=== PATIENT | male | born 1950 | race Caucasian/White ===

== ENCOUNTER 2016-09-03 09:16 | Inpatient (IN) | payer OTHER, MEDICARE ==
[~2016-09-03] VITALS: Ht 182.9 cm; Wt 125.1 kg
[2016-09-03] VITALS (7 sets, daily range): BP systolic 107–152; BP diastolic 68–104; PULSE 80–135; RESP 15–30; TEMP 97.8–98.1; O2SAT 95–99
[~2016-09-03 09:16] MED LIST: ALBU2.5I INH; ASPI81TA82 PO; DICL1GEL TOP; FURO1TAB93 PO; HYDR10SO PO; METH500T3 PO; METO25 PO; NORV5TAB PO; ONDA4TAB7 PO; SENN8.6T15 PO; SPIR25TA PO; SYMB160A INH; TIMO
--- NOTE | 2016-09-03 11:02 | PD ---
HPI Chief Complaint: Flank/Kidney Pain Time Seen by Provider: 10:45 Travel History International Travel<30 days: No Contact w/Intl Traveler<30days: No Traveled to known affect area: No History of Present Illness HPI 66-year-old male who is hard of hearing presents with his friend for evaluation of left flank pain. His friend provided some of the information. Symptoms started 1.5 weeks ago. Pain is a sharp pain in his left flank that is constant but it is worse with movement. He denies any injuries. The pain does not radiate into his abdomen or his chest. He denies any chest pain, nausea or vomiting, fevers or chills, diarrhea or constipation. He has had some hematuria over the past 2 days as well. He says he is on a blood thinner but he does not remember the name. No history of kidney stones. No other complaints. PFSH Past Medical History Hx Anticoagulant Therapy: Yes (Coumadin) Arthritis: Yes Blood Disorders: Yes (Pt Commented he has thin blood ) Heart Rhythm Problems: Yes (Hx AFib RVR ) Cancer: No Cardiac Catheterization: Yes Cardiovascular Problems: Yes High Cholesterol: No Chemotherapy: No Chest Pain: Yes Congestive Heart Failure: Yes Cerebrovascular Accident: No Coronary Artery Disease: Yes Diabetes: Yes Diminished Hearing: Yes (LEGALLY DEAF) Endocrine: No Gastrointestinal Disorders: Yes (Chirrosis of the Liver) Glaucoma: Yes Genitourinary: No Hypertension: Yes Immune Disorder: No Implanted Vascular Access Dvce: Yes Musculoskeletal: Yes (Arthritis ) Neurologic: No Psychiatric: No Reproductive: No Respiratory: Yes Immunizations Current: Yes Myocardial Infarction: Yes Radiation Therapy: No Sickle Cell Disease: No Past Surgical History Abdominal Surgery: Yes (paracentesis) Appendectomy: Yes Cardiac Surgery: Yes (VALVE REPLACEMENT) Coronary Stent: Yes Ear Surgery: No Eye Surgery: No Genitourinary Surgery: No Gynecologic Surgery: No Neurologic Surgery: No Oral Surgery: No Thoracic Surgery: No Tonsillectomy: Yes Other Surgery: Yes (Paracentesis) Social History Alcohol Use: No Tobacco Use: No Substance Use: No (HX OF DRUG AND ALCOHOL ABUSE) Allergies-Medications (Allergen,Severity, Reaction): Coded Allergies: Lisinopril (Verified Allergy, Intermediate, 09/03/16) Reported Meds & Prescriptions Reported Meds & Active Scripts Active Reported [blood thinner] Unknown Dose PO DAILY Hydrocodone-Acetaminophen 5-325 mg Tab Unknown Dose PO Q6H PRN Norvasc (Amlodipine Besylate) 5 Mg Tab 5 Mg PO DAILY Metoprolol Tartrate 25 Mg Tab 25 Mg PO BID Lasix (Furosemide) 40 Mg Tab 40 Mg PO DAILY Aspirin 81 Mg Tabdr 81 Mg PO DAILY Review of Systems Except as stated in HPI: all other systems reviewed are Neg Physical Exam Narrative GENERAL: Well-developed well-nourished male in no acute distress SKIN: Warm and dry. There is some scattered ecchymosis on the anterior abdominal wall which his friend says is from his pet jumping on him. There is no diffuse flank or periumbilical ecchymosis HEAD: Atraumatic. Normocephalic. EYES: Pupils equal and round. No scleral icterus. No injection or drainage. ENT: No nasal bleeding or discharge. Mucous membranes pink and moist. NECK: Trachea midline. No JVD. CARDIOVASCULAR: Regular rate and rhythm. No murmur appreciated. RESPIRATORY: No accessory muscle use. Clear to auscultation. Breath sounds equal bilaterally. GASTROINTESTINAL: Abdomen soft, non-tender, nondistended. Hepatic and splenic margins not palpable. Left CVA tenderness is present. There is some reproducible pain when sitting up from a lying down position. MUSCULOSKELETAL: No obvious deformities. NEUROLOGICAL: Awake and alert. No obvious cranial nerve deficits. Motor grossly within normal limits. Normal speech. Data Data Last Documented VS Vital Signs Date Time Temp Pulse Resp B/P Pulse Ox O2 Delivery O2 Flow Rate FiO2 09/03/16 15:35 98.1 09/03/16 15:32 109 22 09/03/16 15:25 133/89 98 Room Air Orders Complete Blood Count With Diff (09/03/16 10:59) Comprehensive Metabolic Panel (09/03/16 10:59) Urinalysis - C+S If Indicated (09/03/16 10:59) Ct Abd/Pel W/O Iv Contrast (09/03/16 10:59) Act Partial Throm Time (Ptt) (09/03/16 10:59) Prothrombin Time / Inr (Pt) (09/03/16 10:59) Lipase (09/03/16 11:02) Electrocardiogram (09/03/16 12:51) Ckmb (Isoenzyme) Profile (09/03/16 15:35) Troponin I (09/03/16 15:35) Influenzae A/B Antigen (09/03/16 15:35) Blood Culture (09/03/16 15:35) Electrocardiogram (09/03/16 15:35) Ct Pulmonary Angiogram (09/03/16 15:35) Lactic Acid (09/03/16 15:35) Vancomycin Inj (Vancomycin Inj) (09/03/16 15:45) Piperacil-Tazo 3.375 Gm Premix (Zosyn 3. (09/03/16 15:45) Mri C Spine W&W/O Contrast (09/03/16 ) Mri L Spine W&W/O Contrast (09/03/16 ) Mri T Spine W & W/O Contrast (09/03/16 ) Labs Laboratory Tests Test 09/03/16 09/03/16 11:28 12:02 White Blood Count 17.2 TH/MM3 Red Blood Count 3.93 MIL/MM3 Hemoglobin 13.2 GM/DL Hematocrit 38.1 % Mean Corpuscular Volume 97.0 FL Mean Corpuscular Hemoglobin 33.6 PG Mean Corpuscular Hemoglobin 34.6 % Concent Red Cell Distribution Width 15.1 % Platelet Count 40 TH/MM3 Mean Platelet Volume 10.7 FL Neutrophils (%) (Auto) 92.2 % Lymphocytes (%) (Auto) 3.0 % Monocytes (%) (Auto) 4.2 % Eosinophils (%) (Auto) 0.2 % Basophils (%) (Auto) 0.4 % Neutrophils # (Auto) 15.9 TH/MM3 Lymphocytes # (Auto) 0.5 TH/MM3 Monocytes # (Auto) 0.7 TH/MM3 Eosinophils # (Auto) 0.0 TH/MM3 Basophils # (Auto) 0.1 TH/MM3 CBC Comment AUTO DIFF Differential Total Cells 100 Counted Neutrophils % (Manual) 80 % Band Neutrophils % 13 % Lymphocytes % 2 % Monocytes % 5 % Neutrophils # (Manual) 16.0 TH/MM3 Differential Comment FINAL DIFF MANUAL Platelet Estimate LOW Platelet Morphology Comment NORMAL Prothrombin Time 17.3 SEC Prothromb Time International 1.5 RATIO Ratio Activated Partial 34.5 SEC Thromboplast Time Sodium Level 129 MEQ/L Potassium Level 3.8 MEQ/L Chloride Level 98 MEQ/L Carbon Dioxide Level 22.9 MEQ/L Anion Gap 8 MEQ/L Blood Urea Nitrogen 19 MG/DL Creatinine 1.01 MG/DL Estimat Glomerular Filtration 74 ML/MIN Rate Random Glucose 177 MG/DL Calcium Level 8.0 MG/DL Total Bilirubin 5.2 MG/DL Aspartate Amino Transf 39 U/L (AST/SGOT) Alanine Aminotransferase 25 U/L (ALT/SGPT) Alkaline Phosphatase 107 U/L Total Protein 6.1 GM/DL Albumin 2.1 GM/DL Lipase 185 U/L Urine Color BROWN Urine Turbidity HAZY Urine pH 6.0 Urine Specific [place] 1.024 Urine Protein 100 mg/dL Urine Glucose (UA) NEG mg/dL Urine Ketones NEG mg/dL Urine Occult Blood MOD Urine Nitrite NEG Urine Bilirubin NEG Urine Urobilinogen GREATER THAN 12.0 MG/DL Urine Leukocyte Esterase NEG Urine RBC 15 /hpf Urine WBC 4 /hpf Urine Squamous Epithelial 1 /hpf Cells Urine Mucus FEW /lpf Microscopic Urinalysis Comment CULT NOT INDICATED MDM Medical Decision Making Medical Screen Exam Complete: Yes Emergency Medical Condition: Yes Medical Record Reviewed: Yes Differential Diagnosis Muscle spasm, muscle strain, renal stone, hydronephrosis, pyelonephritis, pancreatitis Narrative Course This patient was seen in triage and protocols were initiated. The patient will be moved to a medical bed when one becomes available for disposition. Chaz Norman Sep 03, 2016 11:02 Chaz Norman Sep 03, 2016 11:02
[2016-09-03] MEDS ORDERED: AMLO5 PO (11:13)
[2016-09-03] MEDS ORDERED: ASPI1TAB69 PO (11:13)
[2016-09-03] MEDS ORDERED: HYDR-3516 PO (11:13)
[2016-09-03] MEDS ORDERED: METO25TA3 PO (11:13)
[2016-09-03] MEDS ORDERED: FURO1TAB60 PO (11:13)
[2016-09-03 11:45] LABS: AUTOMATED NEUTROPHIL # 15.9 TH/MM3 (1.8-7.7); BASOPHIL # 0.1 TH/MM3 (0-0.2); BASOPHIL % 0.4 % (0.0-2.0); EOSINOPHIL % 0.2 % (0.0-4.0); HEMATOCRIT 38.1 % (39.0-51.0); LYMPHOCYTE # 0.5 TH/MM3 (1.0-4.8); MEAN CORPUSCULAR HEMOGLOBIN 33.6 PG (27.0-34.0); MEAN CORPUSCULAR HGB CONC 34.6 % (32.0-36.0); MONO % 4.2 % (0.0-8.0); NEUT % 92.2 % (16.0-70.0); PLATELET COUNT 40 TH/MM3 (150-450); RED BLOOD COUNT 3.93 MIL/MM3 (4.50-5.90); RED CELL DISTRIBUTION WIDTH 15.1 % (11.6-17.2); WHITE BLOOD COUNT 17.2 TH/MM3 (4.0-11.0)
[2016-09-03 11:50] LABS: APTT (PATIENT) 34.5 SEC (24.3-30.1); HEMO FLAGS AUTO DIFF; INTERNATIONAL NORMALIZED RATIO 1.5 RATIO; PROTHROMBIN TIME - PATIENT 17.3 SEC (9.8-11.6)
[2016-09-03 12:02] LABS: ANION GAP 8 MEQ/L (5-15); AST (GOT) 39 U/L (15-37); BICARBONATE 22.9 MEQ/L (21.0-32.0); BLOOD UREA NITROGEN 19 MG/DL (7-18); CHLORIDE 98 MEQ/L (98-107); GLOMERULAR FILTRATION RATE 74 ML/MIN (>89); POTASSIUM 3.8 MEQ/L (3.5-5.1); SODIUM (NA) 129 MEQ/L (136-145)
[2016-09-03 12:04] LABS: ALKALINE PHOSPHATASE 107 U/L (45-117); ALT (GPT) 25 U/L (12-78); TOTAL BILIRUBIN ADULT 5.2 MG/DL (0.2-1.0)
[2016-09-03 12:35] LABS: BLOOD, URINE MOD (NEG); COMMENT (UR) CULT NOT INDICATED; CULTURE IF INDICATED CULT NOT INDICATED; GLUCOSE,URINE NEG (NEG); KETONE, URINE NEG (NEG); MUCUS URINE FEW /lpf (OCC); NITRITE,URINE NEG (NEG); SQUAMOUS EPITHELIAL CELL URINE 1 /hpf (0-5)
[2016-09-03 12:41] LABS: BANDS 13 % (0-6); PLATELET ESTIMATE SMEAR LOW (NORMAL); PLATELET MORPHOLOGY NORMAL (NORMAL); POLYS (SEG NEUTROPHILS) 80 % (16-70); SCAN/DIFF FINAL DIFF MANUAL; WBC DIFF SAMPLE 100
--- NOTE | 2016-09-03 12:42 | RADRPT ---
EXAM DATE/TIME: 09/03/2016 11:40 [facility] COMPARISON: CT ABDOMEN & PELVIS W CONTRAST, March 05, 2016, 1:21. CT ABDOMEN & PELVIS W/O CONTRAST, February 18 16, 21:13. INDICATIONS: Left rib pain and hematuria. ORAL CONTRAST: No oral contrast ingested. RADIATION DOSE: 15.69 CTDIvol (mGy) MEDICAL HISTORY: Diabetes mellitus type 2. Hypertension. Cardiovascular disease SURGICAL HISTORY: CABG Appendectomy. ENCOUNTER: Initial ACUITY: 1 week PAIN SCALE: 8/10 LOCATION: Left upper quadrant TECHNIQUE: Volumetric scanning of the abdomen and pelvis was performed. Using automated exposure control and ad justment of the mA and/or kV according to patient size, radiation dose was kept as low as reasonably achievable to obtain optimal diagnostic quality images. FINDINGS: The spleen is markedly enlarged and measures 20.9 cm in greatest dimension. The liver is small and n odular in contour indicating cirrhosis. There are esophageal varices. There is also some ascites wi thin the abdomen. No acute obstructive uropathy is noted. There is a stable upper pole right renal cyst. The pancreas is unchanged. Evaluation of the solid organs is limited secondary to the lack of intravenous contrast. Degenerative changes, scoliosis and multiple chronic compression deformities are noted involving the lumbar spine. A retro aortic left renal vein is noted. The abdominal aorta is calcified but it is not aneurysmally dilated. The inferior vena cava is normal. The urinary blad corinne is unremarkable. The prostate gland is unremarkable. No pelvic lymphadenopathy is noted. CONCLUSION: 1. Cirrhosis of the liver, marked splenomegaly and esophageal varices. 2. Small amount of ascites within the abdomen. 3. Stable right upper pole renal cyst. 4. Degenerative changes, scoliosis and multiple compression deformities involving the lumbar spine. Alexandr Oakley MD on September 03, 2016 at 12:06 Board Certified Radiologist. This report was verified electronically.
[2016-09-03 12:44] LABS: URINE COLOR BROWN (YELLW/STRAW)
[2016-09-03] MEDS ORDERED: blood thinner PO (14:30)
[2016-09-03] MEDS ORDERED: VANCOMYCIN INJ 1,000 MG in SODIUM CHLOR 0.9% 250 ML INJ 250 ML IV ONE (15:45)
[2016-09-03] MEDS ORDERED: PIPERACIL-TAZO 3.375 GM PREMIX 50 ML IV ONE (15:45)
--- NOTE | 2016-09-03 16:54 | PD ---
Data Data Last Documented VS Vital Signs Date Time Temp Pulse Resp B/P Pulse Ox O2 Delivery O2 Flow Rate FiO2 09/03/16 17:40 99 16 117/71 99 Room Air 09/03/16 15:35 98.1 Orders Complete Blood Count With Diff (09/03/16 10:59) Comprehensive Metabolic Panel (09/03/16 10:59) Urinalysis - C+S If Indicated (09/03/16 10:59) Ct Abd/Pel W/O Iv Contrast (09/03/16 10:59) Act Partial Throm Time (Ptt) (09/03/16 10:59) Prothrombin Time / Inr (Pt) (09/03/16 10:59) Lipase (09/03/16 11:02) Electrocardiogram (09/03/16 12:51) Ckmb (Isoenzyme) Profile (09/03/16 15:35) Troponin I (09/03/16 15:35) Influenzae A/B Antigen (09/03/16 15:35) Blood Culture (09/03/16 15:35) Electrocardiogram (09/03/16 15:35) Ct Pulmonary Angiogram (09/03/16 15:35) Lactic Acid (09/03/16 15:35) Vancomycin Inj (Vancomycin Inj) (09/03/16 15:45) Piperacil-Tazo 3.375 Gm Premix (Zosyn 3. (09/03/16 15:45) Mri C Spine W&W/O Contrast (09/03/16 ) Mri L Spine W&W/O Contrast (09/03/16 ) Mri T Spine W & W/O Contrast (09/03/16 ) Consult Vascular Access Team (09/03/16 ) Consult Vascular Access Team (09/03/16 ) Vascular Poc Ultrasound (09/03/16 ) CKMB (09/03/16 16:13) CKMB% (09/03/16 16:13) Sodium Chlor 0.9% 1000 Ml Inj (Ns 1000 M (09/03/16 19:00) Labs Laboratory Tests Test 09/03/16 09/03/16 09/03/16 11:28 12:02 16:13 White Blood Count 17.2 TH/MM3 Red Blood Count 3.93 MIL/MM3 Hemoglobin 13.2 GM/DL Hematocrit 38.1 % Mean Corpuscular Volume 97.0 FL Mean Corpuscular Hemoglobin 33.6 PG Mean Corpuscular Hemoglobin 34.6 % Concent Red Cell Distribution Width 15.1 % Platelet Count 40 TH/MM3 Mean Platelet Volume 10.7 FL Neutrophils (%) (Auto) 92.2 % Lymphocytes (%) (Auto) 3.0 % Monocytes (%) (Auto) 4.2 % Eosinophils (%) (Auto) 0.2 % Basophils (%) (Auto) 0.4 % Neutrophils # (Auto) 15.9 TH/MM3 Lymphocytes # (Auto) 0.5 TH/MM3 Monocytes # (Auto) 0.7 TH/MM3 Eosinophils # (Auto) 0.0 TH/MM3 Basophils # (Auto) 0.1 TH/MM3 CBC Comment AUTO DIFF Differential Total Cells 100 Counted Neutrophils % (Manual) 80 % Band Neutrophils % 13 % Lymphocytes % 2 % Monocytes % 5 % Neutrophils # (Manual) 16.0 TH/MM3 Differential Comment FINAL DIFF MANUAL Platelet Estimate LOW Platelet Morphology Comment NORMAL Prothrombin Time 17.3 SEC Prothromb Time International 1.5 RATIO Ratio Activated Partial 34.5 SEC Thromboplast Time Sodium Level 129 MEQ/L Potassium Level 3.8 MEQ/L Chloride Level 98 MEQ/L Carbon Dioxide Level 22.9 MEQ/L Anion Gap 8 MEQ/L Blood Urea Nitrogen 19 MG/DL Creatinine 1.01 MG/DL Estimat Glomerular Filtration 74 ML/MIN Rate Random Glucose 177 MG/DL Calcium Level 8.0 MG/DL Total Bilirubin 5.2 MG/DL Aspartate Amino Transf 39 U/L (AST/SGOT) Alanine Aminotransferase 25 U/L (ALT/SGPT) Alkaline Phosphatase 107 U/L Total Protein 6.1 GM/DL Albumin 2.1 GM/DL Lipase 185 U/L Urine Color BROWN Urine Turbidity HAZY Urine pH 6.0 Urine Specific [place] 1.024 Urine Protein 100 mg/dL Urine Glucose (UA) NEG mg/dL Urine Ketones NEG mg/dL Urine Occult Blood MOD Urine Nitrite NEG Urine Bilirubin NEG Urine Urobilinogen GREATER THAN 12.0 MG/DL Urine Leukocyte Esterase NEG Urine RBC 15 /hpf Urine WBC 4 /hpf Urine Squamous Epithelial 1 /hpf Cells Urine Mucus FEW /lpf Microscopic Urinalysis Comment CULT NOT INDICATED Lactic Acid Level 2.1 mmol/L Total Creatine Kinase 133 U/L Creatine Kinase MB 0.8 NG/ML Troponin I 0.21 NG/ML MDM Supervised Visit with BERTA: Yes Narrative Course I, Dr. Dai, have reviewed the advance practice practitioner's documentation and am in agreement, met with the patient face to face, made the diagnosis, and the medical decision making was done by me. See his note for further details. The patient was initially evaluated and worked up in triage by my PA. Briefly this is a 66-year-old male with history of cirrhosis who presents for evaluation of worsening left upper back and lower back pain. He denies trauma. Pain is constant, severe, worse with movement and palpation. He has noted some dark urine. He denies fevers or chills. No IVDU. On physical exam the patient is in mild to moderate distress secondary to lower back pain/left flank pain which is significantly worse with movements. There are no focal neurologic deficits. There is significant tenderness over the left flank area and mild midline lower vertebral tenderness without obvious step -off. No focal neurologic deficits. No signs of cellulitis. Initial vital signs show heart rate 102, blood pressure 133/89, pulse ox 90% on room air, oral temp of 97.8F. CBC is remarkable for WBC 17.2 with 92% neutrophils and 13% band neutrophils. CMP is remarkable for sodium 129, T bili 5.2, otherwise essentially unremarkable. Cardiac enzymes UA shows brown urine with 100 protein, moderate blood, greater than 12 urobilinogen, 15 RBCs, not suggestive of UTI. CT abdomen pelvis: 1. Cirrhosis of the liver, marked splenomegaly and esophageal varices. 2. Small amount of ascites within the abdomen. 3. Stable right upper pole renal cyst. 4. Degenerative changes, scoliosis and multiple compression deformities involving the lumbar spine. I reviewed the CT, and there does not seem to be enough ascites to perform even a diagnostic paracentesis safely. Patient has no abdominal tenderness. He is mainly tender over his left flank area. By the time the patient was brought back to the room, the above labs and CT abdomen pelvis had been resulted. I added CT pulmonary angiogram to rule out PE as well as MRI of the entire spine to rule out discitis/epidural abscess. Given leukocytosis and bandemia without obvious source, broad-spectrum antibiotics were started which included vancomycin and Zosyn. Troponin is 0.21. Lactic acid is 2.1. EKG shows A. fib with a rate of 96, leftward axis, Q waves in septal leads, no acute ischemic normality. At approximately 7:00 PM at the end of my shift the patient was signed out to Dr. del castillo follow up with CT pulmonary angiogram, MRI spine, and will admit the patient. Diagnosis Primary Impression: Leukocytosis Qualified Code: D72.829 - Leukocytosis, unspecified type Additional Impression: Elevated troponin Darin Dai MD Sep 03, 2016 16:53
[2016-09-03 17:09] LABS: CREATINE KINASE 133 U/L (39-308)
[2016-09-03 17:22] LABS: CKMB 0.8 NG/ML (0.5-3.6)
[2016-09-03] MEDS ORDERED: SODIUM CHLOR 0.9% 1000 ML INJ 1,000 ML IV ONE (19:00)
[2016-09-03] MEDS ORDERED: IOHEXOL 350 MG/ML 10 ML VIAL (for RAD DIAG) IV ONE (19:54)
[2016-09-03] MEDS ORDERED: GADODIAMIDE PF 287 MG/ML 20 ML VIAL (for RAD MRI) IV ONE (19:58)
[2016-09-03] MEDS ORDERED: HYDROmorphone HCL PF 1 MG/ML VIAL IV PUSH ONE (20:15)
[2016-09-03] MEDS ORDERED: RESP: ALBUTEROL 2.5 MG/IPRATROPIUM 0.5 MG NEB (SCH) NEB ONE (20:15)
--- NOTE | 2016-09-03 20:40 | RADRPT ---
EXAM DATE/TIME: 09/03/2016 19:42 [facility] COMPARISON: No previous studies available for comparison. INDICATIONS : Left rib pain for 1 week; evaluate for pulmonary embolism. IV CONTRAST: 75 cc Omnipaque 350 (iohexol) IV RADIATION DOSE: 23.42 CTDIvol (mGy) MEDICAL HISTORY : Hypertension. Diabetes mellitus type 2. SURGICAL HISTORY : Appendectomy. CABGPacemaker. ENCOUNTER: Initial ACUITY: 1 week PAIN SCALE: 6/10 LOCATION: Left chest TECHNIQUE: Volumetric scanning of the chest was performed using a pulmonary embolism protocol MIP images were re constructed. Using automated exposure control and adjustment of the mA and/or kV according to patien t size, radiation dose was kept as low as reasonably achievable to obtain optimal diagnostic quality images. FINDINGS: No filling defects to suggest pulmonary embolism. Mild basilar atelectasis. No significant effusion. Proximal aortic stent. Liver cirrhosis. Splenomegaly. Bilateral gynecomastia. Moderate coronary calci fications. CONCLUSION: 1. Negative for pulmonary embolus. 2. Mild atelectasis in the lungs. Thom Kebede MD on September 03, 2016 at 20:37 Board Certified Radiologist. This report was verified electronically.
--- NOTE | 2016-09-03 21:02 | RADRPT ---
EXAM DATE/TIME: 09/03/2016 17:59 [facility] COMPARISON: No previous studies available for comparison. INDICATIONS : Osteomyelitis. CONTRAST: 20 cc Omniscan (gadodiamide) IV MEDICAL HISTORY : Hypertension. Myocardial infarction. Congestive heart failure. SURGICAL HISTORY : Appendectomy. CABG Fusion, lumbar. ENCOUNTER: Initial ACUITY: 3 day PAIN SCORE: 3/10 LOCATION: back TECHNIQUE: Multiplanar multisequence MRI of the thoracic spine was performed. FINDINGS: No acute fracture or spondylolisthesis. No evidence for osteomyelitis. No cord compression and no cor d signal abnormalities. Mild degenerative change at T1-T8. Mild left-sided osteophytic ridging at T8-9 and right-sided osteop hytic ridging at T9-10 with mild encroachment of the lateral recesses. Mild lateral recess encroachment at T10-11 from degenerative change. [id number] are unremarkable. CONCLUSION: 1. Mild degenerative disc disease. No significant canal stenosis. Specifically no evidence for osteom yelitis. No cord impingement or cord edema. No abnormal enhancing lesions in the thoracic spine. Thom Kebede MD on September 03, 2016 at 20:57 Board Certified Radiologist. This report was verified electronically.
--- NOTE | 2016-09-03 21:05 | RADRPT ---
EXAM DATE/TIME: 09/03/2016 17:59 [facility] COMPARISON: No previous studies available for comparison. INDICATIONS : Osteomyelitis. CONTRAST: ?20 cc Omniscan (gadodiamide) IV MEDICAL HISTORY : Hypertension. Myocardial infarction. Congestive heart failure. SURGICAL HISTORY : Appendectomy. CABG Fusion, lumbar. ENCOUNTER: Initial ACUITY: 2 day PAIN SCORE: 3/10 LOCATION: neck TECHNIQUE: Multiplanar, multisequence MRI examination of the cervical spine was performed. FINDINGS: No abnormal enhancing lesions in the cervical spine to suggest osteomyelitis. C2-3 is unremarkable. At C3-4 there is a broad-based disc protrusion with mild AP canal stenosis and mild cord flattening. Mild neural foraminal stenosis. C4-5: Broad-based disc protrusion with moderate AP canal stenosis and neural foraminal stenosis bilaterally . At C5-6, C6-7 and C7-T1 posterior disc osteophyte complexes efface the thecal sac around the cord wit hout significant cord compression. CONCLUSION: 1. No evidence for osteomyelitis. No fracture or spondylolisthesis. 2. Broad-based disc protrusions at C3-4-5 resulting in mild cord compression. 3. Degenerative change at C5-6-7-T1 effacing the thecal sac around the cord. Thom Kebede MD on September 03, 2016 at 21:00 Board Certified Radiologist. This report was verified electronically.
--- NOTE | 2016-09-03 21:08 | RADRPT ---
EXAM DATE/TIME: 09/03/2016 17:59 [facility] COMPARISON: No previous studies available for comparison. INDICATIONS : Osteomyelitis. CONTRAST: 20 cc Omniscan (gadodiamide) IV MEDICAL HISTORY : Hypertension. Myocardial infarction. Congestive heart failure. SURGICAL HISTORY : Appendectomy. CABG Fusion, lumbar. ENCOUNTER: Initial ACUITY: 3 day PAIN SCORE: 4/10 LOCATION: back TECHNIQUE: Multiplanar multisequence MRI of the lumbar spine was performed with and without contrast. FINDINGS: No evidence for osteomyelitis the lumbar spine. Mild compression deformities of L1 and L2 which appea r remote without significant edema. No significant stenosis at L1-2. Mild central canal stenosis at L2-3-4. No significant canal stenosis at L4-5-S1. CONCLUSION: 1. Negative for osteomyelitis. No abnormal enhancing lesion within the lumbar spine. 2. Remote mild compression deformities of L1 and L2. 3. Mild central canal stenosis at L2-3-4. Mild bilateral neural foraminal encroachment between L2 and L5 bilaterally. Thom Kebede MD on September 03, 2016 at 21:04 Board Certified Radiologist. This report was verified electronically.
--- NOTE | 2016-09-03 21:23 | PD ---
Data Data Last Documented VS Vital Signs Date Time Temp Pulse Resp B/P Pulse Ox O2 Delivery O2 Flow Rate FiO2 09/03/16 20:43 115 28 124/68 95 Room Air 09/03/16 15:35 98.1 Orders Complete Blood Count With Diff (09/03/16 10:59) Comprehensive Metabolic Panel (09/03/16 10:59) Urinalysis - C+S If Indicated (09/03/16 10:59) Ct Abd/Pel W/O Iv Contrast (09/03/16 10:59) Act Partial Throm Time (Ptt) (09/03/16 10:59) Prothrombin Time / Inr (Pt) (09/03/16 10:59) Lipase (09/03/16 11:02) Electrocardiogram (09/03/16 12:51) Ckmb (Isoenzyme) Profile (09/03/16 15:35) Troponin I (09/03/16 15:35) Influenzae A/B Antigen (09/03/16 15:35) Blood Culture (09/03/16 15:35) Electrocardiogram (09/03/16 15:35) Ct Pulmonary Angiogram (09/03/16 15:35) Lactic Acid (09/03/16 15:35) Vancomycin Inj (Vancomycin Inj) (09/03/16 15:45) Piperacil-Tazo 3.375 Gm Premix (Zosyn 3. (09/03/16 15:45) Mri C Spine W&W/O Contrast (09/03/16 ) Mri L Spine W&W/O Contrast (09/03/16 ) Mri T Spine W & W/O Contrast (09/03/16 ) Consult Vascular Access Team (09/03/16 ) Consult Vascular Access Team (09/03/16 ) Vascular Poc Ultrasound (09/03/16 ) CKMB (09/03/16 16:13) CKMB% (09/03/16 16:13) Sodium Chlor 0.9% 1000 Ml Inj (Ns 1000 M (09/03/16 19:00) Iohexol 350 Inj (Omnipaque 350 Inj) (09/03/16 19:54) Gadodiamide Pf Inj (Omniscan Pf Inj) (09/03/16 19:58) Hydromorphone Pf Inj (Dilaudid Pf Inj) (09/03/16 20:15) Albuterol-Ipratropium Neb (Duoneb Neb) (09/03/16 20:15) Admit Order (Ed Use Only) (09/03/16 ) Labs Laboratory Tests Test 09/03/16 09/03/16 09/03/16 11:28 12:02 16:13 White Blood Count 17.2 TH/MM3 Red Blood Count 3.93 MIL/MM3 Hemoglobin 13.2 GM/DL Hematocrit 38.1 % Mean Corpuscular Volume 97.0 FL Mean Corpuscular Hemoglobin 33.6 PG Mean Corpuscular Hemoglobin 34.6 % Concent Red Cell Distribution Width 15.1 % Platelet Count 40 TH/MM3 Mean Platelet Volume 10.7 FL Neutrophils (%) (Auto) 92.2 % Lymphocytes (%) (Auto) 3.0 % Monocytes (%) (Auto) 4.2 % Eosinophils (%) (Auto) 0.2 % Basophils (%) (Auto) 0.4 % Neutrophils # (Auto) 15.9 TH/MM3 Lymphocytes # (Auto) 0.5 TH/MM3 Monocytes # (Auto) 0.7 TH/MM3 Eosinophils # (Auto) 0.0 TH/MM3 Basophils # (Auto) 0.1 TH/MM3 CBC Comment AUTO DIFF Differential Total Cells 100 Counted Neutrophils % (Manual) 80 % Band Neutrophils % 13 % Lymphocytes % 2 % Monocytes % 5 % Neutrophils # (Manual) 16.0 TH/MM3 Differential Comment FINAL DIFF MANUAL Platelet Estimate LOW Platelet Morphology Comment NORMAL Prothrombin Time 17.3 SEC Prothromb Time International 1.5 RATIO Ratio Activated Partial 34.5 SEC Thromboplast Time Sodium Level 129 MEQ/L Potassium Level 3.8 MEQ/L Chloride Level 98 MEQ/L Carbon Dioxide Level 22.9 MEQ/L Anion Gap 8 MEQ/L Blood Urea Nitrogen 19 MG/DL Creatinine 1.01 MG/DL Estimat Glomerular Filtration 74 ML/MIN Rate Random Glucose 177 MG/DL Calcium Level 8.0 MG/DL Total Bilirubin 5.2 MG/DL Aspartate Amino Transf 39 U/L (AST/SGOT) Alanine Aminotransferase 25 U/L (ALT/SGPT) Alkaline Phosphatase 107 U/L Total Protein 6.1 GM/DL Albumin 2.1 GM/DL Lipase 185 U/L Urine Color BROWN Urine Turbidity HAZY Urine pH 6.0 Urine Specific [place] 1.024 Urine Protein 100 mg/dL Urine Glucose (UA) NEG mg/dL Urine Ketones NEG mg/dL Urine Occult Blood MOD Urine Nitrite NEG Urine Bilirubin NEG Urine Urobilinogen GREATER THAN 12.0 MG/DL Urine Leukocyte Esterase NEG Urine RBC 15 /hpf Urine WBC 4 /hpf Urine Squamous Epithelial 1 /hpf Cells Urine Mucus FEW /lpf Microscopic Urinalysis Comment CULT NOT INDICATED Lactic Acid Level 2.1 mmol/L Total Creatine Kinase 133 U/L Creatine Kinase MB 0.8 NG/ML Troponin I 0.21 NG/ML [facility] Supervised Visit with BERTA: No Narrative Course Assumed care patient Dr. Dai, 66 old man with a history of cirrhosis, worsening left flank pain without clear etiology. Symptoms ongoing for a week and a half. Studies show white blood cell count with bandemia, elevated lactate, and evidence of his chronic liver failure. Troponin is also little bit elevated. Extensive workup including CT pulmonary angiogram, CT of the abdomen and pelvis, an MRI of the lumbar spine failed identified etiology for the patient's pain, or an occult source of infection. EKG showed A. fib RVR without definite ischemic changes. On exam he is some tenderness but no rashes suggest shingles, no evidence of trauma, no other etiology for his pain. Medical history includes A. 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 Troponin is also elevated. We'll admit the patient to the hospital for further evaluation to rule out ACS, sepsis, further studies identified etiology of patient's discomfort. Diagnosis Primary Impression: Leukocytosis Qualified Code: D72.829 - Leukocytosis, unspecified type Additional Impression: Elevated troponin Butch Levin MD Sep 03, 2016 21:23
[2016-09-03] MEDS ORDERED: NALOXONE HCL 0.4 MG/ML AMP IV PRN (23:45)
[2016-09-03] MEDS ORDERED: SODIUM CHLORIDE 0.9% FLUSH 5 ML FLUSH FLUSH PRN (23:45)
[2016-09-04] VITALS (12 sets, daily range): BP systolic 94–114; BP diastolic 53–85; PULSE 83–111; RESP 16–22; TEMP 97.1–98.7; O2SAT 94–98
[2016-09-04] MEDS ORDERED: GLUCAGON 1 MG/ML VIAL OTHER PRN (00:15)
[2016-09-04] MEDS ORDERED: DEXTROSE 50% IN WATER 50 ML VIAL(D50) IV PUSH PRN (00:15)
--- NOTE | 2016-09-04 00:54 | HHI.HP ---
[facility] Tony Ravi M.D. Admission Diagnosis sepsis, flank pain, rule out LA Diagnoses: (1) Sepsis (2) Cirrhosis (3) Hyponatremia (4) Left flank pain (5) Cervical disc herniation Chief Complaint: Left flank pain Travel History International Travel<30 Days: No Contact w/Intl Traveler <30 Da: No Traveled to Known Affected Are: No History of Present Illness Mr. Stovall is a 66-year-old who is legally deaf in the past medical history of liver cirrhosis, coronary artery disease, myocardial infarction status post CABG 3 and cardiac stents, congestive heart failure, heart valve replacement, hypertension, atrial fibrillation with rapid ventricular response, diabetes mellitus, and history of alcohol and drug abuse who presented to the emergency room on 09/03/16 complaining of left flank pain for a duration of one and a half weeks. The patient is seen in the emergency room, he is complaining of severe pain left flank that was reduced from December 01 to a 4 with Dilaudid but is back to a 10 out of 10. He complains of urinary frequency and hematuria. There is a small amount of urine in the urinal at the bedside that is blood tinged. In general patient is very poor historian difficult to communicate due to being , however patient is able to read lips movement, He denies any accompanying abdominal pain nausea, vomiting, black or bloody stool, diarrhea, hematemesis, dizziness, blurred vision, or chest pain . Review of Systems Gastrointestinal: DENIES: Bloody stools Except as stated in HPI: all other systems reviewed are Neg Past Family Social History Past Medical History Liver cirrhosis, coronary artery disease, myocardial infarction status post CABG 3 and cardiac stents, congestive heart failure, heart valve replacement, hypertension, atrial fibrillation with rapid ventricular response, diabetes mellitus, and history of alcohol and drug abuse . Past Surgical History Coronary artery bypass graft 3 Cardiac stents Paracentesis . Reported Medications Reported Meds & Active Scripts Active Reported [blood thinner] Unknown Dose PO DAILY Hydrocodone-Acetaminophen 5-325 mg Tab Unknown Dose PO Q6H PRN Norvasc (Amlodipine Besylate) 5 Mg Tab 5 Mg PO DAILY Metoprolol Tartrate 25 Mg Tab 25 Mg PO BID Lasix (Furosemide) 40 Mg Tab 40 Mg PO DAILY Aspirin 81 Mg Tabdr 81 Mg PO DAILY Allergies: Coded Allergies: Lisinopril (Verified Allergy, Intermediate, 09/03/16) Active Ordered Medications Current Medications Vancomycin HCl 1000 mg/Sodium Chloride 250 ml @ 250 mls/hr ONCE ONCE IV Last administered on 09/03/16 17:37; Start 09/03/16 at 15:45; Stop 09/03/16 at 16:44 ; Status DC Piperacillin Sod/ Tazobactam Sod 50 ml @ 100 mls/hr ONCE ONCE IV Last administered on 09/03/16 16:19; Start 09/03/16 at 15:45; Stop 09/03/16 at 16:14 ; Status DC Sodium Chloride (NS 1000 ml Inj) 1,000 ml @ 999 mls/hr BOLUS ONCE IV Last administered on 09/03/16 19:39; Start 09/03/16 at 19:00; Stop 09/03/16 at 20:00 ; Status DC Iohexol (Omnipaque 350 Inj) 75 ml STK-MED ONCE IV Last administered on 19:54; Start 09/03/16 at 19:54; Stop 09/03/16 at 19:55; Status DC Gadodiamide (Omniscan Pf Inj) 20 ml STK-MED ONCE IV Last administered on 19:58; Start 09/03/16 at 19:58; Stop 09/03/16 at 19:59; Status DC Hydromorphone HCl (Dilaudid Pf Inj) 1 mg ONCE ONCE IV PUSH Last administered on 09/03/16 20:42; Start 09/03/16 at 20:15; Stop 09/03/16 at 20:16; Status DC Albuterol/ Ipratropium (Duoneb Neb) 1 ampule ONCE ONCE NEB Last administered on 09/03/16 20:27; Start 09/03/16 at 20:15; Stop 09/03/16 at 20:16; Status DC IV Flush (NS Flush) 2 ml UNSCH PRN FLUSH FLUSH AFTER USING IV ACCESS; Start 05/10 at 23:45 IV Flush (NS Flush) 2 ml BID FLUSH ; Start 09/04/16 at 09:00 Naloxone HCl (Narcan Inj) 0.4 mg UNSCH PRN IV SEE LABEL COMMENTS; Start at 23:45 Dextrose (D50w (Vial) Inj) 25 ml UNSCH PRN IV PUSH HYPOGLYCEMIA-SEE COMMENTS; Start 09/04/16 at 00:15 Glucagon (Glucagon Inj) 1 mg UNSCH PRN OTHER HYPOGLYCEMIA-SEE COMMENTS; Start 09/04/16 at 00:15 Insulin Aspart 1 1 ACHS SLIDING SCALE SQ ; Start 09/04/16 at 07:00 Ceftriaxone Sodium/Sodium Chloride (Rocephin Inj/NS Inj) 100 ml @ 200 mls/hr Q24H IV ; Start 09/04/16 at 08:00 Family History Father with alcoholism . Social History Alcohol: has not been drinking for 7 or 8 months, prior abuse of alcohol Tobacco: denies . Physical Exam Vital Signs Vital Signs Date Time Temp Pulse Resp B/P Pulse Ox O2 Delivery O2 Flow Rate FiO2 09/03/16 22:22 102 18 107/70 95 Room Air 09/03/16 20:43 115 28 124/68 95 Room Air 09/03/16 19:38 135 30 152/104 98 Room Air 09/03/16 17:40 99 16 117/71 99 Room Air 09/03/16 15:35 98.1 09/03/16 15:32 109 22 09/03/16 15:25 102 22 133/89 98 Room Air 09/03/16 09:21 97.8 80 15 110/70 96 Physical Exam GENERAL: This is an obese older, hearing impaired male patient, in no apparent distress. SKIN: No rashes, ecchymoses or lesions. Cool and dry. HEAD: Atraumatic. Normocephalic. EYES: No scleral icterus. No injection or drainage. ENT: Nose without bleeding, purulent drainage. Hearing impaired. NECK: Trachea midline. No JVD or lymphadenopathy. CARDIOVASCULAR: Regular rate and rhythm without murmurs, gallops, or rubs. Trace ankle edema. RESPIRATORY: Clear to auscultation. Breath sounds equal bilaterally. No wheezes , rales, or rhonchi. GASTROINTESTINAL: Abdomen soft, obese, non-tender, nondistended. No guarding. MUSCULOSKELETAL: Extremities without clubbing, cyanosis. No calf tenderness. NEUROLOGICAL: Awake and alert. Motor and sensory grossly within normal limits. Normal speech. . Laboratory Laboratory Tests Test 09/03/16 09/03/16 09/03/16 11:28 12:02 16:13 White Blood Count 17.2 Red Blood Count 3.93 Hemoglobin 13.2 Hematocrit 38.1 Mean Corpuscular Volume 97.0 Mean Corpuscular Hemoglobin 33.6 Mean Corpuscular Hemoglobin 34.6 Concent Red Cell Distribution Width 15.1 Platelet Count 40 Mean Platelet Volume 10.7 Neutrophils (%) (Auto) 92.2 Lymphocytes (%) (Auto) 3.0 Monocytes (%) (Auto) 4.2 Eosinophils (%) (Auto) 0.2 Basophils (%) (Auto) 0.4 Neutrophils # (Auto) 15.9 Lymphocytes # (Auto) 0.5 Monocytes # (Auto) 0.7 Eosinophils # (Auto) 0.0 Basophils # (Auto) 0.1 CBC Comment AUTO DIFF Differential Total Cells 100 Counted Neutrophils % (Manual) 80 Band Neutrophils % 13 Lymphocytes % 2 Monocytes % 5 Neutrophils # (Manual) 16.0 Differential Comment FINAL DIFF MANUAL Platelet Estimate LOW Platelet Morphology Comment NORMAL Prothrombin Time 17.3 Prothromb Time International 1.5 Ratio Activated Partial 34.5 Thromboplast Time Sodium Level 129 Potassium Level 3.8 Chloride Level 98 Carbon Dioxide Level 22.9 Anion Gap 8 Blood Urea Nitrogen 19 Creatinine 1.01 Estimat Glomerular Filtration 74 Rate Random Glucose 177 Calcium Level 8.0 Total Bilirubin 5.2 Aspartate Amino Transf 39 (AST/SGOT) Alanine Aminotransferase 25 (ALT/SGPT) Alkaline Phosphatase 107 Total Protein 6.1 Albumin 2.1 Lipase 185 Urine Color BROWN Urine Turbidity HAZY Urine pH 6.0 Urine Specific [place] 1.024 Urine Protein 100 Urine Glucose (UA) NEG Urine Ketones NEG Urine Occult Blood MOD Urine Nitrite NEG Urine Bilirubin NEG Urine Urobilinogen GREATER THAN 12.0 Urine Leukocyte Esterase NEG Urine RBC 15 Urine WBC 4 Urine Squamous Epithelial 1 Cells Urine Mucus FEW Microscopic Urinalysis Comment CULT NOT INDICATED Lactic Acid Level 2.1 Total Creatine Kinase 133 Creatine Kinase MB 0.8 Troponin I 0.21 Date/Time Procedure Status Source Growth 09/03/16 16:17 Influenza Types A,B Antigen (ANICETO) - Final Complete Nasal Washing NEGATIVE FOR FLU A AND B ANTIGEN.... 09/03/16 16:13 Aerobic Blood Culture Received Blood Peripheral Pending 09/03/16 16:13 Anaerobic Blood Culture Received Blood Peripheral Pending Result Diagram: 09/03/16 1128 09/03/[address] Angiography 09/03/16 1535 Signed Impressions: Service Date/Time: Saturday, September 03, 2016 19:42 - CONCLUSION: 1. Negative for pulmonary embolus. 2. Mild atelectasis in the lungs. Thom Kebede MD Abdomen/Pelvis CT 09/03/16 1059 Signed Impressions: Service Date/Time: Saturday, September 03, 2016 11:40 - CONCLUSION: 1. Cirrhosis of the liver, marked splenomegaly and esophageal varices. 2. Small amount of ascites within the abdomen. 3. Stable right upper pole renal cyst. 4. Degenerative changes, scoliosis and multiple compression deformities involving the lumbar spine. Alexandr Oakley MD Thoracic Spine MRI 09/03/16 0000 Signed Impressions: Service Date/Time: Saturday, September 03, 2016 17:59 - CONCLUSION: 1. Mild degenerative disc disease. No significant canal stenosis. Specifically no evidence for osteomyelitis. No cord impingement or cord edema. No abnormal enhancing lesions in the thoracic spine. Thom Kebede MD Lumbar Spine MRI 09/03/16 0000 Signed Impressions: Service Date/Time: Saturday, September 03, 2016 17:59 - CONCLUSION: 1. Negative for osteomyelitis. No abnormal enhancing lesion within the lumbar spine. 2. Remote mild compression deformities of L1 and L2. 3. Mild central canal stenosis at L2-3-4. Mild bilateral neural foraminal encroachment between L2 and L5 bilaterally. Thom Kebede MD Cervical Spine MRI 09/03/16 0000 Signed Impressions: Service Date/Time: Saturday, September 03, 2016 17:59 - CONCLUSION: 1. No evidence for osteomyelitis. No fracture or spondylolisthesis. 2. Broad-based disc protrusions at C3-4-5 resulting in mild cord compression. 3. Degenerative change at C5-6-7-T1 effacing the thecal sac around the cord. Thom Kebede MD . Assessment and Plan Problem List: (1) Sepsis ICD Code: A41.9 Status: Acute (2) Cirrhosis ICD Code: K74.60 Status: Chronic (3) Left flank pain ICD Code: R10.9 Status: Acute (4) Cervical disc herniation ICD Code: M50.20 Status: Acute (5) Hyponatremia ICD Code: E87.1 Status: Acute Assessment and Plan Sepsis rule out underlying SBP - Ultrasound-guided abdominal paracentesis - Rocephin 2 g IV every 24 hours - Initial WBC 17.2 with neutrophilia; recheck CBC in a.m. - Lactic acid 2.1, will recheck in a.m. Lactic acidosis , mild -IVF , repeat level in am Cirrhosis - CT abdomen and pelvis shows cirrhosis of liver, marked splenomegaly, and esophageal varices with small amount of ascites within the abdomen - Consult gastroenterology to assist with evaluation and management Elevated troponin I - Initial troponin 0.21 - Will check serial cardiac enzymes and EKGs to rule out ACS Thrombocytopenia, chronic likely secondary to cirrhosis - platelet count 40,000 - Recheck CBC in a.m. and follow trends Hyponatremia - Normal saline at 70 cc per hour for gentle IV hydration replacement - Recheck BMP in a.m. and replace as indicated - Check urine and serum osmolality and follow results C3, 4, 5 herniated disc with mild spinal cord compression - Neurosurgery consulted DVT prophylaxis - SCDs - Chemotherapy prophylaxis contraindicated Awaiting medication reconciliation from nursing staff to continue home medications Written by Anastasiia Scanlon, acting as scribe for Dr. Baxter on 09/04/16 at 00:50. Discussed Condition With ER physician and patient Physician Certification 2 Midnight Certification Type: Admission for Inpatient Services Order for Inpatient Services The services are ordered in accordance with Medicare regulations or non- Medicare payer requirements, as applicable. In the case of services not specified as inpatient-only, they are appropriately provided as inpatient services in accordance with the 2-midnight benchmark. Estimated LOS (days): 3 days is the estimated time the patient will need to remain in the hospital, assuming treatment plan goals are met and no additional complications. Post-Hospital Plan: Not yet determined Anastasiia Scanlon Sep 04, 2016 00:54 Radha Baxter MD Sep 04, 2016 01:48
[2016-09-04] MEDS: SODIUM CHLOR 0.9% 1000 ML INJ 1,000 ML IV SCH ×2 (02:03→16:03)
[2016-09-04] MEDS: MORPHINE SULFATE 4 MG/ML INJ IV PUSH PRN ×5 (02:58→20:08)
[2016-09-04] MEDS: INSULIN ASPART SUPPLEMENTAL SCALE SQ SCH ×4 (05:59→19:55)
[2016-09-04 06:31] LABS: AUTOMATED NEUTROPHIL # 12.9 TH/MM3 (1.8-7.7); BASOPHIL % 0.3 % (0.0-2.0); EOSINOPHIL % 0.1 % (0.0-4.0); HEMATOCRIT 35.8 % (39.0-51.0); LYMPH % 3.3 % (9.0-44.0); LYMPHOCYTE # 0.5 TH/MM3 (1.0-4.8); MEAN CELL VOLUME 97.1 FL (80.0-100.0); MEAN CORPUSCULAR HEMOGLOBIN 32.7 PG (27.0-34.0); MEAN CORPUSCULAR HGB CONC 33.7 % (32.0-36.0); NEUT % 90.3 % (16.0-70.0); PLATELET COUNT 24 TH/MM3 (150-450); RED BLOOD COUNT 3.68 MIL/MM3 (4.50-5.90); RED CELL DISTRIBUTION WIDTH 15.4 % (11.6-17.2); WHITE BLOOD COUNT 14.2 TH/MM3 (4.0-11.0)
[2016-09-04 06:43] LABS: HEMO FLAGS AUTO DIFF
[2016-09-04 06:51] LABS: ALT (GPT) 18 U/L (12-78); ANION GAP 11 MEQ/L (5-15); AST (GOT) 34 U/L (15-37); BICARBONATE 22.4 MEQ/L (21.0-32.0); BLOOD UREA NITROGEN 21 MG/DL (7-18); CHLORIDE 99 MEQ/L (98-107); GLOMERULAR FILTRATION RATE 78 ML/MIN (>89); POTASSIUM 3.8 MEQ/L (3.5-5.1); SODIUM (NA) 132 MEQ/L (136-145)
[2016-09-04 06:53] LABS: ALKALINE PHOSPHATASE 88 U/L (45-117); TOTAL BILIRUBIN ADULT 5.1 MG/DL (0.2-1.0)
[2016-09-04] MEDS: SODIUM CHLORIDE 0.9% FLUSH 5 ML FLUSH FLUSH SCH ×2 (08:18→19:59)
[2016-09-04] MEDS: cefTRIAXone INJ 2,000 MG in SODIUM CHLORIDE 0.9% INJ 100 ML IV SCH (08:18)
--- NOTE | 2016-09-04 09:45 | RADRPT ---
EXAM DATE/TIME: 09/04/2016 08:46 [facility] COMPARISON: CT ABDOMEN & PELVIS W/O CONTRAST, September 03, 2016, 11:40. INDICATIONS : Ascites. MEDICAL HISTORY : Myocardial infarction. Congestive heart failure. Glaucoma. Legally deaf. Cerebrovascular accident. A-Fib. Hypertension. Coronary artery disease. Arthritis. Diabetes. SURGICAL HISTORY : Tonsillectomy. CABG. Coronary artery stent. Heart valve. Appendectomy. Back and hip surgery. ENCOUNTER: Initial ACUITY: 1 day PAIN SCORE: 0/10 LOCATION: Abdomen. AREA EVALUATED: Abdomen quadrants. FINDINGS: Imaging of the abdomen and pelvis was performed to evaluate for ascites for possible paracentesis. On ly a small pocket of fluid is seen along the midline and just to the left of midline but no clear win john for paracentesis. No significant fluid in the 4 quadrants. CONCLUSION: No clear window for paracentesis. Iain Villa MD on September 04, 2016 at 9:42 Board Certified Radiologist. This report was verified electronically.
[2016-09-04 09:58] LABS: SCAN/DIFF AUTO DIFF CONFIRMED
[2016-09-04 09:59] LABS: TOXIC GRANULATION 1+ (NORMAL)
--- NOTE | 2016-09-04 10:54 | HHI.PR ---
Subjective Remarks Follow up bacteremia/sepsis, elevated troponin. The patient reports back pain. Denies chest pain or dyspnea. Denies cough. Still having some abdominal discomfort as well. The patient is deaf, but is able to read lips and communicate verbally. Objective Vitals Vital Signs Date Time Temp Pulse Resp B/P Pulse Ox O2 Delivery O2 Flow Rate FiO2 09/04/16 10:21 102 09/04/16 08:00 97.1 92 18 101/65 95 09/04/16 06:46 98 102/57 09/04/16 03:29 100 09/04/16 03:15 102/60 09/04/16 02:30 97.6 98 16 98/69 96 09/04/16 02:11 111 18 107/78 98 Room Air 09/04/16 01:03 98.7 104 18 94/53 98 Room Air 09/03/16 22:22 102 18 107/70 95 Room Air 09/03/16 20:43 115 28 124/68 95 Room Air 09/03/16 19:38 135 30 152/104 98 Room Air 09/03/16 17:40 99 16 117/71 99 Room Air 09/03/16 15:35 98.1 09/03/16 15:32 109 22 09/03/16 15:25 102 22 133/89 98 Room Air I/O 09/03/16 09/03/16 09/03/16 09/04/16 09/04/16 09/04/16 07:00 15:00 23:00 07:00 15:00 23:00 Intake Total 850 ml Output Total 500 ml 450 ml Balance -500 ml 400 ml Intake IV Total 850 ml Output Urine Total 500 ml 450 ml # Voids 3 1 Result Diagram: 09/04/16 0613 09/04/16 0613 Imaging Last Impressions Abdomen Ultrasound 09/04/16 0000 Signed Impressions: Service Date/Time: Sunday, September 04, 2016 08:46 - CONCLUSION: No clear window for paracentesis. Iain Villa MD CT Angiography 09/03/16 1535 Signed Impressions: Service Date/Time: Saturday, September 03, 2016 19:42 - CONCLUSION: 1. Negative for pulmonary embolus. 2. Mild atelectasis in the lungs. Thom Kebede MD Abdomen/Pelvis CT 09/03/16 1059 Signed Impressions: Service Date/Time: Saturday, September 03, 2016 11:40 - CONCLUSION: 1. Cirrhosis of the liver, marked splenomegaly and esophageal varices. 2. Small amount of ascites within the abdomen. 3. Stable right upper pole renal cyst. 4. Degenerative changes, scoliosis and multiple compression deformities involving the lumbar spine. Alexandr Oakley MD Thoracic Spine MRI 09/03/16 0000 Signed Impressions: Service Date/Time: Saturday, September 03, 2016 17:59 - CONCLUSION: 1. Mild degenerative disc disease. No significant canal stenosis. Specifically no evidence for osteomyelitis. No cord impingement or cord edema. No abnormal enhancing lesions in the thoracic spine. Thom Kebede MD Lumbar Spine MRI 09/03/16 0000 Signed Impressions: Service Date/Time: Saturday, September 03, 2016 17:59 - CONCLUSION: 1. Negative for osteomyelitis. No abnormal enhancing lesion within the lumbar spine. 2. Remote mild compression deformities of L1 and L2. 3. Mild central canal stenosis at L2-3-4. Mild bilateral neural foraminal encroachment between L2 and L5 bilaterally. Thom Kebede MD Cervical Spine MRI 09/03/16 0000 Signed Impressions: Service Date/Time: Saturday, September 03, 2016 17:59 - CONCLUSION: 1. No evidence for osteomyelitis. No fracture or spondylolisthesis. 2. Broad-based disc protrusions at C3-4-5 resulting in mild cord compression. 3. Degenerative change at C5-6-7-T1 effacing the thecal sac around the cord. Thom Kebede MD Objective Remarks General: No acute distress. Deaf. Heart: Regular rate and rhythm. No murmur. Lungs: Clear to auscultation bilaterally. No wheezes, rales, or rhonchi. Breathing is nonlabored. Abdomen: Soft, nontender, obese. Extremities: Trace to 1+ bilateral lower extremity edema with chronic venous stasis changes. Psych: Alert and oriented. Urinary Catheter: No Vascular Central Line Catheter: No A/P Problem List: (1) Sepsis ICD Code: A41.9 Status: Acute (2) Cirrhosis ICD Code: K74.60 Status: Chronic (3) Left flank pain ICD Code: R10.9 Status: Acute (4) Cervical disc herniation ICD Code: M50.20 Status: Acute (5) Hyponatremia ICD Code: E87.1 Status: Acute (6) Bacteremia ICD Code: R78.81 Status: Acute (7) Elevated troponin I level ICD Code: R74.8 Status: Acute Assessment and Plan 1. Sepsis, rule out SBP: Ultrasound-guided paracentesis ordered. Continue Rocephin. Leukocytosis improving. Blood cultures are growing gram-positive cocci. Awaiting further ID and sensitivities. Consult infectious disease. 2. Lactic acidosis: Resolved. 3. Cirrhosis of the liver: CT shows marked splenomegaly and esophageal varices. Also small amount of ascites within the abdomen. GI consult is pending. 4. Elevated troponin: Consult cardiology. Discussed with Dr. Tellez. Patient has had prior cardiac catheterization and was found to have normal coronary arteries. He has not had CABG, which was previously documented in error. 5. Thrombocytopenia: Chronic secondary to cirrhosis. Monitor labs. 6. Mild hyponatremia: Continue IV fluids. Monitor labs. 7. C3 C4 C5 herniated disc with mild spinal cord compression: Neurosurgical consult requested. 8. DVT prophylaxis: SCDs. Chemical prophylaxis contraindicated. Jarod Blanc MD Sep 04, 2016 10:53
--- NOTE | 2016-09-04 13:06 | EKG ---
Date Performed: 09/03/2016 Time Performed: 12:51:02 PTAGE: 66 years EKG: ATRIAL FIBRILLATION MARKED LEFT AXIS DEVIATION SEPTAL MYOCARDIAL INFARCTION ABNORMAL ECG PREVIOUS TRACING : 04/13/2016 12.08 Since previous tracing, no significant change noted DOCTOR: Raul Tellez Interpretating Date/Time 09/04/2016 13:05:17
--- NOTE | 2016-09-04 13:06 | EKG ---
Date Performed: 09/04/2016 Time Performed: 00:04:47 PTAGE: 66 years EKG: ATRIAL FIBRILLATION WITH RAPID VENTRICULAR RESPONSE MARKED LEFT AXIS DEVIATION PATTERN CONS ISTENT WITH PULMONARY DISEASE SEPTAL MYOCARDIAL INFARCTION ABNORMAL ECG PREVIOUS TRACING : 09/03/2016 12.51 Compared to previous tracing, ventricular response was fast er. DOCTOR: Raul Tellez Interpretating Date/Time 09/04/2016 13:06:20
--- NOTE | 2016-09-04 13:08 | EKG ---
Date Performed: 09/04/2016 Time Performed: 05:37:44 PTAGE: 66 years EKG: ATRIAL FIBRILLATION WITH RAPID VENTRICULAR RESPONSE MARKED LEFT AXIS DEVIATION PATTERN CONS ISTENT WITH PULMONARY DISEASE SEPTAL MYOCARDIAL INFARCTION , PROBABLY OLD ABNORMAL ECG PREVIOUS TRACING : 09/04/2016 00.04 Compared to previous tracing, ventricular response is somew hat slower. DOCTOR: Raul Tellez Interpretating Date/Time 09/04/2016 13:06:48
--- NOTE | 2016-09-04 13:17 | MB ---
cc: BRENNEN MCKEON MD DATE OF CONSULTATION: 09/04/2016 REASON FOR CONSULTATION Elevated troponin. HISTORY OF PRESENT ILLNESS The patient is a very pleasant 66-year-old gentleman well-known to me who has a history of normal coronaries per cardiac catheterization about a pcwl-wil-t-half ago as well as severe aortic stenosis now status post TAVR performed at [facility]. He presented with severe flank pain with a concern for sepsis. As part of his workup, his troponin was mildly elevated and thus I was consulted. Currently the patient still complains mostly of left-sided flank pain but no chest pain, no lightheadedness, dizziness or syncope. PAST MEDICAL HISTORY 1. Liver cirrhosis. 2. Thrombocytopenia. 3. Aortic stenosis now status post TAVR. 4. Normal coronary arteries per cardiac catheterization 05/13/15. 5. Obesity. 6. Paroxysmal atrial fibrillation (not on anticoagulation due to chronic thrombocytopenia, GI bleeding and alcohol abuse). CURRENT MEDICATIONS Ceftriaxone. ALLERGIES LISINOPRIL. PHYSICAL EXAMINATION VITAL SIGNS: Afebrile, pulse 102, respiratory rate 18, BP 101/65, satting 95% on room air. GENERAL: A pleasant, well-appearing gentleman in no distress. NECK: No JVD. LUNGS: Clear to auscultation bilaterally. CARDIOVASCULAR: Regular rate and rhythm. No murmurs appreciated. ABDOMEN: Abdomen is mildly tender on the left lower quadrant. EXTREMITIES: No edema. EKG shows atrial fibrillation at a rate of about 103. LABORATORY DATA White count 14.2, hematocrit 35.8, platelets 24. Sodium 132, potassium 3.8, chloride 99, bicarb 22.4, BUN 21, creatinine 0.97. Troponin is in the nonspecific range at 0.21, 0.27, 0.22. INR is 1.5 (while not on warfarin). IMPRESSION 1. Elevated troponin. The patient's elevated troponin is a nonspecific finding in the patient's sepsis. He has normal coronary arteries by his cardiac catheterization detailed above. 2. Atrial fibrillation. As also detailed above. He is not a candidate for anticoagulation particularly in the setting of this severe thrombocytopenia. I would like his rate a little bit better controlled though his blood pressure is somewhat marginal. I will restart his Lopressor as his blood pressure tolerates. I will be available on an as needed basis. Please call with any questions. Thank you for the opportunity to see this patient. MD RICHARD Barton/TIFFANY /11:21 AM /1:01 PM
--- NOTE | 2016-09-04 14:59 | PD.CONS ---
HPI History of Present Illness This is a 66 year old male with a past medical history of liver cirrhosis, coronary artery disease, congestive heart failure, hx of heart valve replacement , hypertension, and atrial fibrillation who came to the ER for evaluation of left flank pain x 1.5 weeks. He was admitted for sepsis, elevated troponin, left flank plain, cirrhosis, and hyponatremia. GI was consulted for cirrhosis, ascites, esophageal varices, and left flank pain. The patient reports that he started having left flank pain about a week and a half ago. He is not able to really describe this, but denies any fevers, chills, nausea, vomiting, constipation, diarrhea, melena, or hematochezia. He denies any issues with his appetite and is currently eating a hamburger when we went in to examine him. He denies any decreased appetite or inability to tolerate po. Abdomen/Pelvis CT (09/03/16)----> 1. Cirrhosis of the liver, marked splenomegaly and esophageal varices. 2. Small amount of ascites within the abdomen. 3. Stable right upper pole renal cyst. 4. Degenerative changes, scoliosis and multiple compression deformities involving the lumbar spine. An US guided paracentesis was ordered, but he had no clear window for paracentesis. EGD/Colonoscopy () revealed portal gastropathy, mild normal colonoscopy. (Pastora Bourne) PFSH Past Medical History Alcoholic cirrhosis COPD CHF Severe aortic stenosis, status post T AVR Coronary artery disease Hypertension Deafness Gastritis Past Surgical History Coronary artery bypass graft 3 Cardiac stents Paracentesis (Pastora Bourne) Coded Allergies: Lisinopril (Verified Allergy, Intermediate, 09/03/16) Medications Allergies Coded Allergies Type Severity Reaction Last Updated Verified Lisinopril Allergy Intermediate 09/03/16 Yes Active Scripts Medications Dose Route/Sig Days Date Category [blood thinner] Unknown Dose PO DAILY 09/03/16 Reported Hydrocodone-Acetaminophen 5-325 mg Tab Unknown Dose PO Q6H PRN 09/03/16 Reported Norvasc (Amlodipine Besylate) 5 Mg Tab 5 Mg PO DAILY 09/03/16 Reported Metoprolol Tartrate 25 Mg Tab 25 Mg PO BID 09/03/16 Reported Lasix (Furosemide) 40 Mg Tab 40 Mg PO DAILY 09/03/16 Reported Aspirin 81 Mg Tabdr 81 Mg PO DAILY 09/03/16 Reported Family History Father with alcoholism Social History Hx of has not been drinking for 7 or 8 months, prior abuse of alcohol No tobacco use. (Pastora Bourne) Review of Systems Constitutional: COMPLAINS OF: Fatigue, DENIES: Weight loss, Change in appetite Respiratory: DENIES: Cough, Shortness of breath Cardiovascular: DENIES: Chest pain Gastrointestinal: COMPLAINS OF: Abdominal pain, DENIES: Black stools, Bloody stools, Constipation, Diarrhea, Nausea, Vomiting, Anorexia, Swelling of Abdomen , Heartburn, Hematemesis Musculoskeletal: COMPLAINS OF: Back pain, DENIES: Joint pain Hematologic/lymphatic: DENIES: Bruising Neurologic: DENIES: Headache Psychiatric: DENIES: Confusion (Pastora Bourne) GI Exam Vitals I&O Vital Signs Date Time Temp Pulse Resp B/P Pulse Ox O2 Delivery O2 Flow Rate FiO2 09/04/16 12:00 97.3 86 18 107/73 94 09/04/16 10:21 102 09/04/16 08:00 97.1 92 18 101/65 95 09/04/16 06:46 98 102/57 09/04/16 03:29 100 09/04/16 03:15 102/60 09/04/16 02:30 97.6 98 16 98/69 96 09/04/16 02:11 111 18 107/78 98 Room Air 09/04/16 01:03 98.7 104 18 94/53 98 Room Air 09/03/16 22:22 102 18 107/70 95 Room Air 09/03/16 20:43 115 28 124/68 95 Room Air 09/03/16 19:38 135 30 152/104 98 Room Air 09/03/16 17:40 99 16 117/71 99 Room Air 09/03/16 15:35 98.1 09/03/16 15:32 109 22 09/03/16 15:25 102 22 133/89 98 Room Air I/O 09/03/16 09/03/16 09/03/16 09/04/16 09/04/16 09/04/16 07:00 15:00 23:00 07:00 15:00 23:00 Intake Total 850 ml 720 ml Output Total 500 ml 450 ml 400 ml Balance -500 ml 400 ml 320 ml Intake Oral 720 ml IV Total 850 ml Output Urine Total 500 ml 450 ml 400 ml # Voids 3 1 Imaging Last Impressions Abdomen Ultrasound 09/04/16 0000 Signed Impressions: Service Date/Time: Sunday, September 04, 2016 08:46 - CONCLUSION: No clear window for paracentesis. Iain Villa MD CT Angiography 09/03/16 1535 Signed Impressions: Service Date/Time: Saturday, September 03, 2016 19:42 - CONCLUSION: 1. Negative for pulmonary embolus. 2. Mild atelectasis in the lungs. Thom Kebede MD Abdomen/Pelvis CT 09/03/16 1059 Signed Impressions: Service Date/Time: Saturday, September 03, 2016 11:40 - CONCLUSION: 1. Cirrhosis of the liver, marked splenomegaly and esophageal varices. 2. Small amount of ascites within the abdomen. 3. Stable right upper pole renal cyst. 4. Degenerative changes, scoliosis and multiple compression deformities involving the lumbar spine. Alexandr Oakley MD Thoracic Spine MRI 09/03/16 0000 Signed Impressions: Service Date/Time: Saturday, September 03, 2016 17:59 - CONCLUSION: 1. Mild degenerative disc disease. No significant canal stenosis. Specifically no evidence for osteomyelitis. No cord impingement or cord edema. No abnormal enhancing lesions in the thoracic spine. Thom Kebede MD Lumbar Spine MRI 09/03/16 0000 Signed Impressions: Service Date/Time: Saturday, September 03, 2016 17:59 - CONCLUSION: 1. Negative for osteomyelitis. No abnormal enhancing lesion within the lumbar spine. 2. Remote mild compression deformities of L1 and L2. 3. Mild central canal stenosis at L2-3-4. Mild bilateral neural foraminal encroachment between L2 and L5 bilaterally. Thom Kebede MD Cervical Spine MRI 09/03/16 0000 Signed Impressions: Service Date/Time: Saturday, September 03, 2016 17:59 - CONCLUSION: 1. No evidence for osteomyelitis. No fracture or spondylolisthesis. 2. Broad-based disc protrusions at C3-4-5 resulting in mild cord compression. 3. Degenerative change at C5-6-7-T1 effacing the thecal sac around the cord. Thom Kebede MD Laboratory Test 09/03/16 09/04/16 09/04/16 09/04/16 16:13 00:00 01:30 06:13 Lactic Acid Level 2.1 mmol/L 1.3 mmol/L Total Creatine Kinase 133 U/L 35 U/L 52 U/L Creatine Kinase MB 0.8 NG/ML Troponin I 0.21 NG/ML 0.27 NG/ML 0.22 NG/ML Urine Osmolality 660 MOSM/KG White Blood Count 14.2 TH/MM3 Red Blood Count 3.68 MIL/MM3 Hemoglobin 12.1 GM/DL Hematocrit 35.8 % Mean Corpuscular Volume 97.1 FL Mean Corpuscular Hemoglobin 32.7 PG Mean Corpuscular Hemoglobin 33.7 % Concent Red Cell Distribution Width 15.4 % Platelet Count 24 TH/MM3 Mean Platelet Volume 10.0 FL Neutrophils (%) (Auto) 90.3 % Lymphocytes (%) (Auto) 3.3 % Monocytes (%) (Auto) 6.0 % Eosinophils (%) (Auto) 0.1 % Basophils (%) (Auto) 0.3 % Neutrophils # (Auto) 12.9 TH/MM3 Lymphocytes # (Auto) 0.5 TH/MM3 Monocytes # (Auto) 0.9 TH/MM3 Eosinophils # (Auto) 0.0 TH/MM3 Basophils # (Auto) 0.0 TH/MM3 CBC Comment AUTO DIFF Differential Comment AUTO DIFF CONFIRMED Toxic Granulation 1+ Toxic Vacuolation Sodium Level 132 MEQ/L Potassium Level 3.8 MEQ/L Chloride Level 99 MEQ/L Carbon Dioxide Level 22.4 MEQ/L Anion Gap 11 MEQ/L Blood Urea Nitrogen 21 MG/DL Creatinine 0.97 MG/DL Estimat Glomerular Filtration 78 ML/MIN Rate Random Glucose 109 MG/DL Serum Osmolality 277 MOSM/KG Calcium Level 7.9 MG/DL Total Bilirubin 5.1 MG/DL Aspartate Amino Transf 34 U/L (AST/SGOT) Alanine Aminotransferase 18 U/L (ALT/SGPT) Alkaline Phosphatase 88 U/L Total Protein 5.6 GM/DL Albumin 1.9 GM/DL Date/Time Procedure Status Source Growth 09/03/16 16:17 Influenza Types A,B Antigen (ANICETO) - Final Complete Nasal Washing NEGATIVE FOR FLU A AND B ANTIGEN.... 09/03/16 16:13 Aerobic Blood Culture - Preliminary Resulted Blood Peripheral Gram Positive Cocci 09/03/16 16:13 Anaerobic Blood Culture - Preliminary Resulted Blood Peripheral NO GROWTH IN 1 DAY Physical Examination HEENT: Normocephalic; atraumatic; no jaundice. [place] NECK: Neck is supple, no JVD, no lymphadenopathy. CHEST: CTA CARDIAC: RRR ABDOMEN: Soft, nondistended, left flank tenderness, hepatosplenomegaly; bowel sounds are present in all four quadrants. EXTREMITIES: No clubbing, cyanosis, or edema. SKIN: Normal; no rash; no jaundice. RECORDAK OPERATOR: No focal deficits; alert and oriented times three. (Pastora Bourne) Assessment and Plan Plan ASSESSMENT: - Left Flank Pain. Abdomen/Pelvis CT (09/03/16)----> 1. Cirrhosis of the liver, marked splenomegaly and esophageal varices. 2. Small amount of ascites within the abdomen. 3. Stable right upper pole renal cyst. 4. Degenerative changes, scoliosis and multiple compression deformities involving the lumbar spine. An US guided paracentesis was ordered, but he had no clear window for paracentesis. EGD/Colonoscopy (02/26/16) revealed portal gastropathy, mild normal colonoscopy. He is not having any n /v, decreased appetite, constipation, diarrhea, melena, or hematochezia. Doubt that his left flank pain is of GI origin. - Liver cirrhosis/Hepatitis C. Genotype 2B, Viral load in February was 329,000. Not currently drinking. T. Bili 5.1, AST 34, ALT 18, ALk Phosph 88 - Ascites, small amount. Not a clear window to drain. - Leukocytosis, Bacteremia with GPC. Improved. WBC 14.2 - Anemia. 12.1/35.8. PLAN: - LAURA - PPI - Await final blood cx - Abx per primary - Monitor labs - Supportive care - Further recommendations to follow based on results of above - Pt seen and examined by Dr. Cosme and myself and this note is written on his behalf (Pastora Bourne) Physician Comments seen and examined with PEDIATRICS PHYSICIAN< left flank pain. CT -ve for sorce of pain. No trauma reported. Possible egd next week. Will follow ,Thank you (Luis M Cosme MD) Pastora Bourne Sep 04, 2016 14:59 Luis M Cosme MD Sep 04, 2016 16:17
--- NOTE | 2016-09-04 16:30 | PD.CONS ---
[facility] Service Neurosurgery Consult Requested By Medicine Reason for Consult Cervical stenosis Primary Care Physician Tony Ravi M.D. History of Present Illness 66 yr old was admitted with left sided flank pain. Work up included MRI of the spine and cervical stenosis was incidentally found. He states that he does get spasms in the arms especially when getting up or down stairs. The flank pain is his main concern at this time. He has no recent hx of trauma. He has no permanent weakness in the arms and fingers but does have pain with movements of the arms over the head. Review of Systems ROS Limitations: Hearing Impaired Constitutional: DENIES: Diaphoretic episodes, Fatigue, Fever, Weight gain, Weight loss, Chills, Dizziness, Change in appetite, Night Sweats Cardiovascular: COMPLAINS OF: Dyspnea on Exertion Neurologic: COMPLAINS OF: Paresthesias Past Family Social History Allergies: Coded Allergies: Lisinopril (Verified Allergy, Intermediate, 09/03/16) Past Medical History Cirrhosis HTN CAD Reported Medications Reported Meds & Active Scripts Active Reported [blood thinner] Unknown Dose PO DAILY Hydrocodone-Acetaminophen 5-325 mg Tab Unknown Dose PO Q6H PRN Norvasc (Amlodipine Besylate) 5 Mg Tab 5 Mg PO DAILY Metoprolol Tartrate 25 Mg Tab 25 Mg PO BID Lasix (Furosemide) 40 Mg Tab 40 Mg PO DAILY Aspirin 81 Mg Tabdr 81 Mg PO DAILY Family History not known Social History Does not drink or smoke at this time, retired Physical Exam Vital Signs Vital Signs Date Time Temp Pulse Resp B/P Pulse Ox O2 Delivery O2 Flow Rate FiO2 09/04/16 12:00 97.3 86 18 107/73 94 09/04/16 10:21 102 09/04/16 08:00 97.1 92 18 101/65 95 09/04/16 06:46 98 102/57 09/04/16 03:29 100 09/04/16 03:15 102/60 09/04/16 02:30 97.6 98 16 98/69 96 09/04/16 02:11 111 18 107/78 98 Room Air 09/04/16 01:03 98.7 104 18 94/53 98 Room Air 09/03/16 22:22 102 18 107/70 95 Room Air 09/03/16 20:43 115 28 124/68 95 Room Air 09/03/16 19:38 135 30 152/104 98 Room Air 09/03/16 17:40 99 16 117/71 99 Room Air Physical Exam Alert and cooperative, EOMI, pupils post surgical with right iris defect, face symmetric, decreased hearing but reads lips very well. No pronator drift, cannot lift arms over the head, del 4/5 lele,otherwise 5/5 in the bic/tri/IO, Cerebellar intact on the right, dysmetria on the left, Reflexes are present 1/4 in the bic/tri/patella. No Anna, no Babinski Skin warm, no sensory level, no radicular numbness at rest Laboratory Laboratory Tests Test 09/04/16 09/04/16 09/04/16 00:00 01:30 06:13 Total Creatine Kinase 35 52 Troponin I 0.27 0.22 Urine Osmolality 660 White Blood Count 14.2 Red Blood Count 3.68 Hemoglobin 12.1 Hematocrit 35.8 Mean Corpuscular Volume 97.1 Mean Corpuscular Hemoglobin 32.7 Mean Corpuscular Hemoglobin 33.7 Concent Red Cell Distribution Width 15.4 Platelet Count 24 Mean Platelet Volume 10.0 Neutrophils (%) (Auto) 90.3 Lymphocytes (%) (Auto) 3.3 Monocytes (%) (Auto) 6.0 Eosinophils (%) (Auto) 0.1 Basophils (%) (Auto) 0.3 Neutrophils # (Auto) 12.9 Lymphocytes # (Auto) 0.5 Monocytes # (Auto) 0.9 Eosinophils # (Auto) 0.0 Basophils # (Auto) 0.0 CBC Comment AUTO DIFF Differential Comment AUTO DIFF CONFIRMED Toxic Granulation 1+ Toxic Vacuolation Sodium Level 132 Potassium Level 3.8 Chloride Level 99 Carbon Dioxide Level 22.4 Anion Gap 11 Blood Urea Nitrogen 21 Creatinine 0.97 Estimat Glomerular Filtration 78 Rate Random Glucose 109 Serum Osmolality 277 Lactic Acid Level 1.3 Calcium Level 7.9 Total Bilirubin 5.1 Aspartate Amino Transf 34 (AST/SGOT) Alanine Aminotransferase 18 (ALT/SGPT) Alkaline Phosphatase 88 Total Protein 5.6 Albumin 1.9 Date/Time Procedure Status Source Growth 09/03/16 16:17 Influenza Types A,B Antigen (ANICETO) - Final Complete Nasal Washing NEGATIVE FOR FLU A AND B ANTIGEN.... 09/03/16 16:13 Aerobic Blood Culture - Preliminary Resulted Blood Peripheral Gram Positive Cocci 09/03/16 16:13 Anaerobic Blood Culture - Preliminary Resulted Blood Peripheral NO GROWTH IN 1 DAY Result Diagram: 09/04/16 0613 09/04/16 0613 Imaging Last Impressions Abdomen Ultrasound 09/04/16 0000 Signed Impressions: Service Date/Time: Sunday, September 04, 2016 08:46 - CONCLUSION: No clear window for paracentesis. Iain Villa MD CT Angiography 09/03/16 1535 Signed Impressions: Service Date/Time: Saturday, September 03, 2016 19:42 - CONCLUSION: 1. Negative for pulmonary embolus. 2. Mild atelectasis in the lungs. Thom Kebede MD Abdomen/Pelvis CT 09/03/16 1059 Signed Impressions: Service Date/Time: Saturday, September 03, 2016 11:40 - CONCLUSION: 1. Cirrhosis of the liver, marked splenomegaly and esophageal varices. 2. Small amount of ascites within the abdomen. 3. Stable right upper pole renal cyst. 4. Degenerative changes, scoliosis and multiple compression deformities involving the lumbar spine. Alexandr Oakley MD Thoracic Spine MRI 09/03/16 0000 Signed Impressions: Service Date/Time: Saturday, September 03, 2016 17:59 - CONCLUSION: 1. Mild degenerative disc disease. No significant canal stenosis. Specifically no evidence for osteomyelitis. No cord impingement or cord edema. No abnormal enhancing lesions in the thoracic spine. Thom Kebede MD Lumbar Spine MRI 09/03/16 0000 Signed Impressions: Service Date/Time: Saturday, September 03, 2016 17:59 - CONCLUSION: 1. Negative for osteomyelitis. No abnormal enhancing lesion within the lumbar spine. 2. Remote mild compression deformities of L1 and L2. 3. Mild central canal stenosis at L2-3-4. Mild bilateral neural foraminal encroachment between L2 and L5 bilaterally. Thom Kebede MD Cervical Spine MRI 09/03/16 0000 Signed Impressions: Service Date/Time: Saturday, September 03, 2016 17:59 - CONCLUSION: 1. No evidence for osteomyelitis. No fracture or spondylolisthesis. 2. Broad-based disc protrusions at C3-4-5 resulting in mild cord compression. 3. Degenerative change at C5-6-7-T1 effacing the thecal sac around the cord. Thom Kebede MD Assessment and Plan Diagnosis: (1) Stenosis, cervical spine Plan: Chronic stenosis of the cervical spine from C3 to C6 is most marked at the level of the disks. No evidence of trauma is seen on MRI. Ossification of the posterior ligament is suspected. If he develops a myelopathy and is able to undergo surgery, a simple laminectomy would relieve the compression. He is only mildly symptomatic at this time and agreeable to rehab. An outpatient rehab program is recommended. I gave him my card if he would like to follow up as an outpatient. ICD Code: M48.02 Aden Vega Sep 04, 2016 16:30
[2016-09-04] MEDS: METOPROLOL TARTRATE 25 MG TAB PO SCH (19:59)
[2016-09-05] VITALS (9 sets, daily range): BP systolic 96–114; BP diastolic 61–79; PULSE 73–87; RESP 16–20; TEMP 96.5–98; O2SAT 91–94
[2016-09-05] MEDS: MORPHINE SULFATE 4 MG/ML INJ IV PUSH PRN ×4 (00:24→21:11)
[2016-09-05] MEDS: INSULIN ASPART SUPPLEMENTAL SCALE SQ SCH ×4 (06:26→21:00)
[2016-09-05 07:42] LABS: AUTOMATED NEUTROPHIL # 12.4 TH/MM3 (1.8-7.7); BASOPHIL % 0.1 % (0.0-2.0); EOSINOPHIL # 0.1 TH/MM3 (0-0.4); EOSINOPHIL % 0.4 % (0.0-4.0); HEMATOCRIT 35.8 % (39.0-51.0); LYMPH % 6.2 % (9.0-44.0); LYMPHOCYTE # 0.9 TH/MM3 (1.0-4.8); MEAN CELL VOLUME 97.3 FL (80.0-100.0); MEAN CORPUSCULAR HEMOGLOBIN 33.2 PG (27.0-34.0); MEAN CORPUSCULAR HGB CONC 34.2 % (32.0-36.0); MONO % 8.3 % (0.0-8.0); PLATELET COUNT 33 TH/MM3 (150-450); RED BLOOD COUNT 3.68 MIL/MM3 (4.50-5.90); RED CELL DISTRIBUTION WIDTH 15.6 % (11.6-17.2); WHITE BLOOD COUNT 14.6 TH/MM3 (4.0-11.0)
[2016-09-05 07:48] LABS: HEMO FLAGS AUTO DIFF
[2016-09-05 08:01] LABS: BICARBONATE 26.6 MEQ/L (21.0-32.0); POTASSIUM 4.3 MEQ/L (3.5-5.1)
--- NOTE | 2016-09-05 08:08 | HHI.PR ---
Subjective Remarks Follow up sepsis, bacteremia. The patient is still complaining of back pain. No abdominal pain this morning. No other complaints at this time. Objective Vitals Vital Signs Date Time Temp Pulse Resp B/P Pulse Ox O2 Delivery O2 Flow Rate FiO2 09/05/16 04:00 96.5 78 19 114/76 94 09/05/16 00:00 96.9 86 20 112/78 93 09/04/16 22:18 86 09/04/16 20:17 98.2 92 22 114/85 94 09/04/16 16:00 98.2 83 18 107/78 94 09/04/16 12:00 97.3 86 18 107/73 94 09/04/16 10:21 102 I/O 09/04/16 09/04/16 09/04/16 09/05/16 09/05/16 09/05/16 07:00 15:00 23:00 07:00 15:00 23:00 Intake Total 850 ml 1427 ml 1066 ml Output Total 450 ml 400 ml 200 ml 970 ml Balance 400 ml 1027 ml -200 ml 96 ml Intake Oral 720 ml 240 ml IV Total 850 ml 707 ml 826 ml Output Urine Total 450 ml 400 ml 200 ml 970 ml # Voids 1 # Bowel Movements 0 Result Diagram: 09/05/16 0605 09/05/16 0605 Imaging Last Impressions Abdomen Ultrasound 09/04/16 0000 Signed Impressions: Service Date/Time: Sunday, September 04, 2016 08:46 - CONCLUSION: No clear window for paracentesis. Iain Villa MD CT Angiography 09/03/16 1535 Signed Impressions: Service Date/Time: Saturday, September 03, 2016 19:42 - CONCLUSION: 1. Negative for pulmonary embolus. 2. Mild atelectasis in the lungs. Thom Kebede MD Abdomen/Pelvis CT 09/03/16 1059 Signed Impressions: Service Date/Time: Saturday, September 03, 2016 11:40 - CONCLUSION: 1. Cirrhosis of the liver, marked splenomegaly and esophageal varices. 2. Small amount of ascites within the abdomen. 3. Stable right upper pole renal cyst. 4. Degenerative changes, scoliosis and multiple compression deformities involving the lumbar spine. Alexandr Oakley MD Thoracic Spine MRI 09/03/16 0000 Signed Impressions: Service Date/Time: Saturday, September 03, 2016 17:59 - CONCLUSION: 1. Mild degenerative disc disease. No significant canal stenosis. Specifically no evidence for osteomyelitis. No cord impingement or cord edema. No abnormal enhancing lesions in the thoracic spine. Thom Kebede MD Lumbar Spine MRI 09/03/16 0000 Signed Impressions: Service Date/Time: Saturday, September 03, 2016 17:59 - CONCLUSION: 1. Negative for osteomyelitis. No abnormal enhancing lesion within the lumbar spine. 2. Remote mild compression deformities of L1 and L2. 3. Mild central canal stenosis at L2-3-4. Mild bilateral neural foraminal encroachment between L2 and L5 bilaterally. Thom Kebede MD Cervical Spine MRI 09/03/16 0000 Signed Impressions: Service Date/Time: Saturday, September 03, 2016 17:59 - CONCLUSION: 1. No evidence for osteomyelitis. No fracture or spondylolisthesis. 2. Broad-based disc protrusions at C3-4-5 resulting in mild cord compression. 3. Degenerative change at C5-6-7-T1 effacing the thecal sac around the cord. Thom Kebede MD Objective Remarks General: No acute distress. Deaf. Heart: Regular rate and rhythm. No murmur. Lungs: Clear to auscultation bilaterally. No wheezes, rales, or rhonchi. Breathing is nonlabored. Abdomen: Soft, nontender, obese. Extremities: Trace to 1+ bilateral lower extremity edema with chronic venous stasis changes. Psych: Alert and oriented. Procedures None Urinary Catheter: No Vascular Central Line Catheter: No A/P Problem List: (1) Sepsis ICD Code: A41.9 Status: Acute (2) Cirrhosis ICD Code: K74.60 Status: Chronic (3) Left flank pain ICD Code: R10.9 Status: Acute (4) Cervical disc herniation ICD Code: M50.20 Status: Acute (5) Hyponatremia ICD Code: E87.1 Status: Acute (6) Bacteremia ICD Code: R78.81 Status: Acute (7) Elevated troponin I level ICD Code: R74.8 Status: Acute Assessment and Plan 1. Sepsis, rule out SBP: Ultrasound-guided paracentesis ordered. Continue Rocephin. WBCs remain elevated. Blood cultures are growing gram-positive cocci. Awaiting further ID and sensitivities. Infectious disease consult is pending. 2. Lactic acidosis: Resolved. 3. Cirrhosis of the liver: CT shows marked splenomegaly and esophageal varices. Also small amount of ascites within the abdomen. Appreciate GI recommendations. 4. Elevated troponin: Appreciate cardiology recommendations. Patient has had prior cardiac catheterization and was found to have normal coronary arteries. He has not had CABG, which was previously documented in error. 5. Thrombocytopenia: Chronic secondary to cirrhosis. Monitor labs. 6. Mild hyponatremia: Continue IV fluids. Monitor labs. 7. C3 C4 C5 herniated disc with mild spinal cord compression: Appreciate neurosurgery recommendations. No surgical intervention planned at this time. Continue pain control. 8. DVT prophylaxis: SCDs. Chemical prophylaxis contraindicated. Jarod Blanc MD Sep 05, 2016 08:08
[2016-09-05] MEDS: METOPROLOL TARTRATE 25 MG TAB PO SCH ×2 (09:00→21:07)
[2016-09-05] MEDS: cefTRIAXone INJ 2,000 MG in SODIUM CHLORIDE 0.9% INJ 100 ML IV SCH (09:10)
[2016-09-05] MEDS: SODIUM CHLOR 0.9% 1000 ML INJ 1,000 ML IV SCH (09:11)
[2016-09-05] MEDS: SODIUM CHLORIDE 0.9% FLUSH 5 ML FLUSH FLUSH SCH ×2 (09:11→21:07)
[2016-09-05 09:37] LABS: BANDS 6 % (0-6); NEUTROPHIL # MANUAL DIFF 13.7 TH/MM3 (1.8-7.7); POLYS (SEG NEUTROPHILS) 88 % (16-70); WBC DIFF SAMPLE 100
[2016-09-05 09:38] LABS: PLATELET ESTIMATE SMEAR LOW (NORMAL); PLATELET MORPHOLOGY NORMAL (NORMAL); SCAN/DIFF FINAL DIFF MANUAL
--- NOTE | 2016-09-05 12:18 | PD.ID.CON ---
History of Present Illness Service ID Consult Requested By Dr Cameron \ Reason for Consult Sepsis, bacteremia Primary Care Physician Tony Ravi M.D. Diagnoses: History of Present Illness Pt is a very poor historian History mostly thru the chart 66 yr old was admitted yday with left sided flank pain. Pt has extensive past med hx including cirrhosis, sp TAVR for severe , Afib No fever, but significant lekocytosis, bandemia, noted All his blood clx are + for vir strep He is on Rocephin Incidentally found.cervical stenosis on MRI NS ff He was found to have elevated troponin and ff by cardiolgist he cot to co L flank pain Review of Systems ROS Limitations: Hearing Impaired, Speech Impaired, Poor Historian Past Family Social History Allergies: Coded Allergies: Lisinopril (Verified Allergy, Intermediate, 09/03/16) Past Medical History Cirrhosis HTN CAD Past Surgical History TAVR Active Ordered Medications Medications where reviewed in EMR Antibiotics Include: CFTX 2 gm q 24 Family History unknown Social History Does not drink or smoke at this time, retired no IVDU Physical Exam Vital Signs Vital Signs Date Time Temp Pulse Resp B/P Pulse Ox O2 Delivery O2 Flow Rate FiO2 09/05/16 09:15 103/77 09/05/16 08:00 97.0 85 16 104/79 91 09/05/16 04:00 96.5 78 19 114/76 94 09/05/16 00:00 96.9 86 20 112/78 93 09/04/16 22:18 86 09/04/16 20:17 98.2 92 22 114/85 94 09/04/16 16:00 98.2 83 18 107/78 94 Physical Exam CONSTITUTIONAL/GENERAL: This is an aobese elderly patient, in no apparent distress. TUBES/LINES/DRAINS: SKIN: No jaundice, rashes, or lesions. Ecchymoses on upper extremities. Skin temperature appropriate. Not diaphoretic. HEAD: Atraumatic. Normocephalic. EYES: Pupils equal and round and reactive. Extraocular motions intact. No scleral icterus. No injection or drainage. Fundi not examined. ENT: Hearing grossly normal. Nose without bleeding or purulent drainage. Mucosae without visible erythema, exudates, masses, or lesions. Oral hygein poor, dentition is in poor shape NECK: Trachea midline. Supple, nontender. No palpable thyroid enlargement or nodularity. CARDIOVASCULAR: Regular rate and rhythm without , gallops, or rubs. No JVD. Peripheral pulses symmetric. murmur 2/6 R upper sternal border, ? holosystolic RESPIRATORY/CHEST: Symmetric, unlabored respirations. Clear to auscultation. Breath sounds equal bilaterally. No wheezes, rales, or rhonchi. GASTROINTESTINAL: Abdomen soft, non-tender, nondistended. No hepato-splenomegaly , or palpable masses. No guarding. Bowel sounds present. GENITOURINARY: Without palpable bladder distension. MUSCULOSKELETAL: Extremities without clubbing, cyanosis, + trace edema. B/l chronic hyperpigmentation more prominent on the LLE No joint tenderness or effusion noted. No calf tenderness. No mottling or clubbing. LYMPHATICS: No palpable cervical or supraclavicular adenopathy. NEUROLOGICAL: Awake and alert. Motor and sensory grossly within normal limits. Follows commands. Speech mostly garbled Moves all extremities. PSYCHIATRIC: No obvious anxiety/depression. no apparent hallucinations or other psychotic thought process. Laboratory Laboratory Tests Test 09/05/16 06:05 White Blood Count 14.6 Red Blood Count 3.68 Hemoglobin 12.2 Hematocrit 35.8 Mean Corpuscular Volume 97.3 Mean Corpuscular Hemoglobin 33.2 Mean Corpuscular Hemoglobin 34.2 Concent Red Cell Distribution Width 15.6 Platelet Count 33 Mean Platelet Volume 8.8 Neutrophils (%) (Auto) 85.0 Lymphocytes (%) (Auto) 6.2 Monocytes (%) (Auto) 8.3 Eosinophils (%) (Auto) 0.4 Basophils (%) (Auto) 0.1 Neutrophils # (Auto) 12.4 Lymphocytes # (Auto) 0.9 Monocytes # (Auto) 1.2 Eosinophils # (Auto) 0.1 Basophils # (Auto) 0.0 CBC Comment AUTO DIFF Differential Total Cells 100 Counted Neutrophils % (Manual) 88 Band Neutrophils % 6 Lymphocytes % 1 Monocytes % 5 Neutrophils # (Manual) 13.7 Differential Comment FINAL DIFF MANUAL Platelet Estimate LOW Platelet Morphology Comment NORMAL Sodium Level 132 Potassium Level 4.3 Chloride Level 100 Carbon Dioxide Level 26.6 Anion Gap 5 Blood Urea Nitrogen 25 Creatinine 0.92 Estimat Glomerular Filtration 83 Rate Random Glucose 107 Calcium Level 8.2 Date/Time Procedure Status Source Growth 09/03/16 16:17 Influenza Types A,B Antigen (ANICETO) - Final Complete Nasal Washing NEGATIVE FOR FLU A AND B ANTIGEN.... 09/03/16 16:13 Aerobic Blood Culture - Preliminary Resulted Blood Peripheral Viridans Streptococcus Grp 09/03/16 16:13 Anaerobic Blood Culture - Preliminary Resulted Viridans Streptococcus Grp Result Diagram: 09/05/16 0605 09/05/16 0605 Imaging Last Impressions Abdomen Ultrasound 09/04/16 0000 Signed Impressions: Service Date/Time: Sunday, September 04, 2016 08:46 - CONCLUSION: No clear window for paracentesis. Iain Villa MD CT Angiography 09/03/16 1535 Signed Impressions: Service Date/Time: Saturday, September 03, 2016 19:42 - CONCLUSION: 1. Negative for pulmonary embolus. 2. Mild atelectasis in the lungs. Thom Kebede MD Abdomen/Pelvis CT 09/03/16 1059 Signed Impressions: Service Date/Time: Saturday, September 03, 2016 11:40 - CONCLUSION: 1. Cirrhosis of the liver, marked splenomegaly and esophageal varices. 2. Small amount of ascites within the abdomen. 3. Stable right upper pole renal cyst. 4. Degenerative changes, scoliosis and multiple compression deformities involving the lumbar spine. Alexandr Oakley MD Thoracic Spine MRI 09/03/16 0000 Signed Impressions: Service Date/Time: Saturday, September 03, 2016 17:59 - CONCLUSION: 1. Mild degenerative disc disease. No significant canal stenosis. Specifically no evidence for osteomyelitis. No cord impingement or cord edema. No abnormal enhancing lesions in the thoracic spine. Thom Kebede MD Lumbar Spine MRI 09/03/16 0000 Signed Impressions: Service Date/Time: Saturday, September 03, 2016 17:59 - CONCLUSION: 1. Negative for osteomyelitis. No abnormal enhancing lesion within the lumbar spine. 2. Remote mild compression deformities of L1 and L2. 3. Mild central canal stenosis at L2-3-4. Mild bilateral neural foraminal encroachment between L2 and L5 bilaterally. Thom Kebede MD Cervical Spine MRI 09/03/16 0000 Signed Impressions: Service Date/Time: Saturday, September 03, 2016 17:59 - CONCLUSION: 1. No evidence for osteomyelitis. No fracture or spondylolisthesis. 2. Broad-based disc protrusions at C3-4-5 resulting in mild cord compression. 3. Degenerative change at C5-6-7-T1 effacing the thecal sac around the cord. Thom Kebede MD Assessment and Plan Assessment and Plan Sepsis, vir strep h/o recent TAVR for LIver cirrosis Mult med prob Here for L flank pain, CT Abd unrevealing Spinal stenosis - NS ff - cont CFTX - 2 D echo, JUANITA - repeat BC Nadine Wadsworth MD Sep 05, 2016 12:18
[2016-09-05 21:16] LABS: BICARBONATE 27.3 MEQ/L (21.0-32.0); MAGNESIUM 1.9 MG/DL (1.5-2.5)
[2016-09-06] VITALS (13 sets, daily range): BP systolic 102–126; BP diastolic 55–84; PULSE 50–78; RESP 18–22; TEMP 96.1–98.2; O2SAT 89–96
[2016-09-06] MEDS: MORPHINE SULFATE 4 MG/ML INJ IV PUSH PRN ×2 (00:55→04:55)
[2016-09-06 06:53] LABS: AUTOMATED NEUTROPHIL # 8.3 TH/MM3 (1.8-7.7); BASOPHIL % 0.1 % (0.0-2.0); EOSINOPHIL % 0.4 % (0.0-4.0); HEMATOCRIT 33.5 % (39.0-51.0); LYMPH % 7.6 % (9.0-44.0); LYMPHOCYTE # 0.8 TH/MM3 (1.0-4.8); MEAN CORPUSCULAR HEMOGLOBIN 33.8 PG (27.0-34.0); MEAN CORPUSCULAR HGB CONC 34.8 % (32.0-36.0); MONO % 8.1 % (0.0-8.0); NEUT % 83.8 % (16.0-70.0); PLATELET COUNT 31 TH/MM3 (150-450); RED BLOOD COUNT 3.45 MIL/MM3 (4.50-5.90); RED CELL DISTRIBUTION WIDTH 15.5 % (11.6-17.2)
[2016-09-06 06:58] LABS: HEMO FLAGS AUTO DIFF
--- NOTE | 2016-09-06 08:22 | PD.CARD.PN ---
Subjective Subjective Remarks Pt w/o cardiac complaints, afib w/ short pauses seen, but called due to several runs of convincing NSVT (asymptomatic) Objective Medications Administered Medications Medications (Trade) Dose Ordered Sig/Blaire Route PRN Reason Start Time Stop Time Status Last Admin Dose Admin IV Flush 2 ml 2 ml BID FLUSH 09/04/16 09:00 09/05/16 21:07 Ceftriaxone Sodium 2000 mg/ Sodium Chloride 100 ml @ 200 mls/hr Q24H IV 09/04/16 08:00 09/05/16 09:10 Sodium Chloride (NS 1000 ml Inj) 1,000 ml @ 70 mls/hr [id number] IV 09/04/16 01:45 09/05/16 09:11 Morphine Sulfate (Morphine Inj) 4 mg Q4H PRN IV PUSH pain 6-10 09/04/16 02:00 09/06/16 04:55 Morphine Sulfate (Morphine Inj) 2 mg Q4H PRN IV PUSH pain 3-5 09/04/16 02:00 09/05/16 21:11 Metoprolol Tartrate (Lopressor) 25 mg BID PO 09/04/16 21:00 09/05/16 21:07 Vital Signs / I&O Vital Signs Date Time Temp Pulse Resp B/P Pulse Ox O2 Delivery O2 Flow Rate FiO2 09/06/16 08:00 96.1 61 20 112/63 92 09/06/16 04:00 96.8 66 22 106/55 89 09/06/16 03:06 62 09/06/16 03:00 58 09/06/16 00:00 96.9 78 18 110/78 96 09/05/16 21:07 73 09/05/16 19:58 97.2 76 19 104/76 94 09/05/16 16:00 98.0 87 16 96/61 92 09/05/16 12:00 96.8 78 16 97/73 92 09/05/16 11:20 76 09/05/16 09:15 103/77 I/O 09/05/16 09/05/16 09/05/16 09/06/16 09/06/16 09/06/16 07:00 15:00 23:00 07:00 15:00 23:00 Intake Total 1066 ml 480 ml 480 ml 240 ml Output Total 970 ml 400 ml 950 ml 1000 ml Balance 96 ml 80 ml -470 ml -760 ml Intake Oral 240 ml 480 ml 480 ml 240 ml IV Total 826 ml Output Urine Total 970 ml 400 ml 950 ml 1000 ml # Bowel Movements 0 0 0 Physical Exam GENERAL: This is a well-nourished, well-developed patient, in no apparent distress. CARDIOVASCULAR: Regular rate and irregular rhythm without murmurs, gallops, or rubs. RESPIRATORY: Clear to auscultation. Breath sounds equal bilaterally. No wheezes , rales, or rhonchi. GASTROINTESTINAL: Abdomen soft, non-tender, nondistended. Normal, active bowel sounds MUSCULOSKELETAL: Extremities without clubbing, cyanosis, or edema. NEURO: Alert & Oriented x4 to person, place, time, situation. Moves all ext x4 Laboratory Laboratory Tests Test 09/05/16 09/06/16 20:22 05:21 Sodium Level 132 MEQ/L 133 MEQ/L Potassium Level 4.0 MEQ/L 4.0 MEQ/L Chloride Level 98 MEQ/L 101 MEQ/L Carbon Dioxide Level 27.3 MEQ/L 26.0 MEQ/L Anion Gap 7 MEQ/L 6 MEQ/L Blood Urea Nitrogen 24 MG/DL 24 MG/DL Creatinine 0.95 MG/DL 0.75 MG/DL Estimat Glomerular Filtration 80 ML/MIN 105 ML/MIN Rate Random Glucose 141 MG/DL 113 MG/DL Calcium Level 7.9 MG/DL 7.9 MG/DL Magnesium Level 1.9 MG/DL Total Creatine Kinase 31 U/L Troponin I 0.10 NG/ML White Blood Count 10.0 TH/MM3 Red Blood Count 3.45 MIL/MM3 Hemoglobin 11.7 GM/DL Hematocrit 33.5 % Mean Corpuscular Volume 97.0 FL Mean Corpuscular Hemoglobin 33.8 PG Mean Corpuscular Hemoglobin 34.8 % Concent Red Cell Distribution Width 15.5 % Platelet Count 31 TH/MM3 Mean Platelet Volume 10.6 FL Neutrophils (%) (Auto) 83.8 % Lymphocytes (%) (Auto) 7.6 % Monocytes (%) (Auto) 8.1 % Eosinophils (%) (Auto) 0.4 % Basophils (%) (Auto) 0.1 % Neutrophils # (Auto) 8.3 TH/MM3 Lymphocytes # (Auto) 0.8 TH/MM3 Monocytes # (Auto) 0.8 TH/MM3 Eosinophils # (Auto) 0.0 TH/MM3 Basophils # (Auto) 0.0 TH/MM3 CBC Comment AUTO DIFF B-Type Natriuretic Peptide 437 PG/ML Imaging Last Impressions Abdomen Ultrasound 09/04/16 0000 Signed Impressions: Service Date/Time: Sunday, September 04, 2016 08:46 - CONCLUSION: No clear window for paracentesis. Iain Villa MD CT Angiography 09/03/16 1535 Signed Impressions: Service Date/Time: Saturday, September 03, 2016 19:42 - CONCLUSION: 1. Negative for pulmonary embolus. 2. Mild atelectasis in the lungs. Thom Kebede MD Abdomen/Pelvis CT 09/03/16 1059 Signed Impressions: Service Date/Time: Saturday, September 03, 2016 11:40 - CONCLUSION: 1. Cirrhosis of the liver, marked splenomegaly and esophageal varices. 2. Small amount of ascites within the abdomen. 3. Stable right upper pole renal cyst. 4. Degenerative changes, scoliosis and multiple compression deformities involving the lumbar spine. Alexandr Oakley MD Thoracic Spine MRI 09/03/16 0000 Signed Impressions: Service Date/Time: Saturday, September 03, 2016 17:59 - CONCLUSION: 1. Mild degenerative disc disease. No significant canal stenosis. Specifically no evidence for osteomyelitis. No cord impingement or cord edema. No abnormal enhancing lesions in the thoracic spine. Thom Kebede MD Lumbar Spine MRI 09/03/16 0000 Signed Impressions: Service Date/Time: Saturday, September 03, 2016 17:59 - CONCLUSION: 1. Negative for osteomyelitis. No abnormal enhancing lesion within the lumbar spine. 2. Remote mild compression deformities of L1 and L2. 3. Mild central canal stenosis at L2-3-4. Mild bilateral neural foraminal encroachment between L2 and L5 bilaterally. Thom Kebede MD Cervical Spine MRI 09/03/16 0000 Signed Impressions: Service Date/Time: Saturday, September 03, 2016 17:59 - CONCLUSION: 1. No evidence for osteomyelitis. No fracture or spondylolisthesis. 2. Broad-based disc protrusions at C3-4-5 resulting in mild cord compression. 3. Degenerative change at C5-6-7-T1 effacing the thecal sac around the cord. Thom Kebede MD Assessment and Plan Problem List: (1) NSVT (nonsustained ventricular tachycardia) Assessment and Plan: No CAD by recent cath, on BB, will get echo to establish lvef. (2) Troponin level elevated Assessment and Plan: nonspecific, no cad (3) Cirrhosis (4) Atrial fibrillation Assessment and Plan: reasonable control; not an anticoagulation candidate due to severe thrombocytopenia, GI bleeding, etoh abuse. (5) Thrombocytopenia (6) S/P TAVR (transcatheter aortic valve replacement) Raul Tellez MD Sep 06, 2016 08:22
[2016-09-06 08:27] LABS: PLATELET ESTIMATE SMEAR LOW (NORMAL); SCAN/DIFF AUTO DIFF CONFIRMED
[2016-09-06 08:28] LABS: PLATELET MORPHOLOGY NORMAL (NORMAL)
[2016-09-06] MEDS: METOPROLOL TARTRATE 25 MG TAB PO SCH ×3 (09:00→21:00)
[2016-09-06] MEDS: cefTRIAXone INJ 2,000 MG in SODIUM CHLORIDE 0.9% INJ 100 ML IV SCH (09:43)
--- NOTE | 2016-09-06 09:45 | EKG ---
Date Performed: 09/05/2016 Time Performed: 20:26:31 PTAGE: 66 years EKG: ATRIAL FIBRILLATION ABNORMAL RHYTHM ECG Compared to prior tracing no significant change PREVIOUS TRACING : 09/04/2016 05.37 DOCTOR: Cornelio Amaro Interpretating Date/Time 09/06/2016 09:43:34
[2016-09-06] MEDS: SODIUM CHLORIDE 0.9% FLUSH 5 ML FLUSH FLUSH SCH ×2 (09:48→21:00)
[2016-09-06] MEDS ORDERED: METOPROLOL TARTRATE 25 MG TAB PO SCH (10:45)
--- NOTE | 2016-09-06 10:49 | HHI.PR ---
Subjective Remarks The patient complained of severe back pain on the left. He requested Percocet. He denied any palpitations, shortness of breath or chest pain. Discussed with nursing. Objective Vitals Vital Signs Date Time Temp Pulse Resp B/P Pulse Ox O2 Delivery O2 Flow Rate FiO2 09/06/16 08:00 96.1 61 20 112/63 92 09/06/16 04:00 96.8 66 22 106/55 89 09/06/16 03:06 62 09/06/16 03:00 58 09/06/16 00:00 96.9 78 18 110/78 96 09/05/16 21:07 73 09/05/16 19:58 97.2 76 19 104/76 94 09/05/16 16:00 98.0 87 16 96/61 92 09/05/16 12:00 96.8 78 16 97/73 92 09/05/16 11:20 76 I/O 09/05/16 09/05/16 09/05/16 09/06/16 09/06/16 09/06/16 07:00 15:00 23:00 07:00 15:00 23:00 Intake Total 1066 ml 480 ml 480 ml 240 ml Output Total 970 ml 400 ml 950 ml 1000 ml Balance 96 ml 80 ml -470 ml -760 ml Intake Oral 240 ml 480 ml 480 ml 240 ml IV Total 826 ml Output Urine Total 970 ml 400 ml 950 ml 1000 ml # Bowel Movements 0 0 0 Result Diagram: 09/06/16 0521 09/06/16 0521 Imaging Last Impressions Abdomen Ultrasound 09/04/16 0000 Signed Impressions: Service Date/Time: Sunday, September 04, 2016 08:46 - CONCLUSION: No clear window for paracentesis. Iain Villa MD CT Angiography 09/03/16 1535 Signed Impressions: Service Date/Time: Saturday, September 03, 2016 19:42 - CONCLUSION: 1. Negative for pulmonary embolus. 2. Mild atelectasis in the lungs. Thom Kebede MD Abdomen/Pelvis CT 09/03/16 1059 Signed Impressions: Service Date/Time: Saturday, September 03, 2016 11:40 - CONCLUSION: 1. Cirrhosis of the liver, marked splenomegaly and esophageal varices. 2. Small amount of ascites within the abdomen. 3. Stable right upper pole renal cyst. 4. Degenerative changes, scoliosis and multiple compression deformities involving the lumbar spine. Alexandr Oakley MD Thoracic Spine MRI 09/03/16 0000 Signed Impressions: Service Date/Time: Saturday, September 03, 2016 17:59 - CONCLUSION: 1. Mild degenerative disc disease. No significant canal stenosis. Specifically no evidence for osteomyelitis. No cord impingement or cord edema. No abnormal enhancing lesions in the thoracic spine. Thom Kebede MD Lumbar Spine MRI 09/03/16 0000 Signed Impressions: Service Date/Time: Saturday, September 03, 2016 17:59 - CONCLUSION: 1. Negative for osteomyelitis. No abnormal enhancing lesion within the lumbar spine. 2. Remote mild compression deformities of L1 and L2. 3. Mild central canal stenosis at L2-3-4. Mild bilateral neural foraminal encroachment between L2 and L5 bilaterally. Thom Kebede MD Cervical Spine MRI 09/03/16 0000 Signed Impressions: Service Date/Time: Saturday, September 03, 2016 17:59 - CONCLUSION: 1. No evidence for osteomyelitis. No fracture or spondylolisthesis. 2. Broad-based disc protrusions at C3-4-5 resulting in mild cord compression. 3. Degenerative change at C5-6-7-T1 effacing the thecal sac around the cord. Thom Kebede MD Objective Remarks General: No acute distress. Deaf. HEENT: NC, AT. Heart: Bradycardic. No murmur. Lungs: Clear to auscultation bilaterally. No wheezes, rales, or rhonchi. Breathing is nonlabored. Abdomen: Soft, nontender, obese. BACK: Tenderness to palpation along lower thoracic and lumbar spine. Extremities: Trace to 1+ bilateral lower extremity edema with chronic venous stasis changes. Psych: Calm. Procedures None Medications and IVs Current Medications Medications (Trade) Dose Ordered Sig/Blaire Route Start Time Stop Time Status Last Admin (NS Flush) 2 ml UNSCH PRN FLUSH 09/03/16 23:45 (NS Flush) 2 ml BID FLUSH 09/04/16 09:00 09/06/16 09:48 (Narcan Inj) 0.4 mg UNSCH PRN IV 09/03/16 23:45 (D50w (Vial) Inj) 25 ml UNSCH PRN IV PUSH 09/04/16 00:15 Glucagon 1 mg 1 mg UNSCH PRN OTHER 09/04/16 00:15 Ceftriaxone Sodium 2000 mg/ Sodium Chloride 100 ml @ 200 mls/hr Q24H IV 09/04/16 08:00 09/06/16 09:43 (NS 1000 ml Inj) 1,000 ml @ 70 mls/hr [id number] IV 09/04/16 01:45 09/05/16 09:11 (Morphine Inj) 4 mg Q4H PRN IV PUSH 09/04/16 02:00 09/06/16 04:55 (Morphine Inj) 2 mg Q4H PRN IV PUSH 09/04/16 02:00 09/05/16 21:11 (Lopressor) 25 mg BID PO 09/04/16 21:00 09/06/16 10:42 A/P Problem List: (1) Sepsis ICD Code: A41.9 Status: Acute (2) Cirrhosis ICD Code: K74.60 Status: Chronic (3) Left flank pain ICD Code: R10.9 Status: Acute (4) Cervical disc herniation ICD Code: M50.20 Status: Acute (5) Hyponatremia ICD Code: E87.1 Status: Acute (6) Bacteremia ICD Code: R78.81 Status: Acute (7) Elevated troponin I level ICD Code: R74.8 Status: Acute Assessment and Plan Sepsis/ bacteremia Ultrasound-guided paracentesis ordered but no window for paracentesis per US. Blood cultures growing viridans strep. ID consult appreciated. Concern for endocarditis. - Continue Rocephin. - follow repeat blood cultures. - echo pending. V tach/ sinus pauses Cardiology consult appreciated. Continues to have runs of V tach. - continue beta gabriella. Consider amiodarone gtt, but caution with that in the setting of sinus pauses. - telemetry. Transfer to [facility]. - follow up with cardiology. Cirrhosis of the liver CT shows marked splenomegaly and esophageal varices. Also small amount of ascites within the abdomen. Appreciate GI recommendations. - follow up with GI. Elevated troponin Appreciate cardiology recommendations. Patient has had prior cardiac catheterization and was found to have normal coronary arteries. - continue medical management. - echo pending. Thrombocytopenia Chronic, secondary to cirrhosis. - Monitor labs. C3 C4 C5 herniated disc With mild spinal cord compression. Appreciate neurosurgery recommendations. No surgical intervention planned at this time. - Continue pain control. - PT. DVT prophylaxis: SCDs. Chemical prophylaxis contraindicated. Discharge Planning Transfer to [facility]. Gualberto Weiss DO Sep 06, 2016 10:49
[2016-09-06] MEDS: INSULIN ASPART SUPPLEMENTAL SCALE SQ SCH ×3 (11:00→21:00)
--- NOTE | 2016-09-06 11:53 | HHI.IDPN ---
Subjective Subjective Remarks afebrile Had runs of Vtach going to CICU sats are low 90s co flank pain unchanged Antibiotics CFTX Allergies: Coded Allergies: Lisinopril (Verified Allergy, Intermediate, 09/03/16) Objective . Vital Signs Date Time Temp Pulse Resp B/P Pulse Ox O2 Delivery O2 Flow Rate FiO2 09/06/16 11:45 98.0 59 20 113/84 94 09/06/16 08:00 96.1 61 20 112/63 92 09/06/16 04:00 96.8 66 22 106/55 89 09/06/16 03:06 62 09/06/16 03:00 58 09/06/16 00:00 96.9 78 18 110/78 96 09/05/16 21:07 73 09/05/16 19:58 97.2 76 19 104/76 94 09/05/16 16:00 98.0 87 16 96/61 92 09/05/16 12:00 96.8 78 16 97/73 92 09/05/16 09/05/16 09/06/16 15:00 23:00 07:00 Intake Total 480 ml 480 ml 240 ml Output Total 400 ml 950 ml 1000 ml Balance 80 ml -470 ml -760 ml Intake Oral 480 ml 480 ml 240 ml Output Urine Total 400 ml 950 ml 1000 ml # Bowel Movements 0 0 . Laboratory Tests Test 09/05/16 09/06/16 06:05 05:21 White Blood Count 14.6 TH/MM3 10.0 TH/MM3 Red Blood Count 3.68 MIL/MM3 3.45 MIL/MM3 Hemoglobin 12.2 GM/DL 11.7 GM/DL Hematocrit 35.8 % 33.5 % Mean Corpuscular Volume 97.3 FL 97.0 FL Mean Corpuscular Hemoglobin 33.2 PG 33.8 PG Mean Corpuscular Hemoglobin 34.2 % 34.8 % Concent Red Cell Distribution Width 15.6 % 15.5 % Platelet Count 33 TH/MM3 31 TH/MM3 Mean Platelet Volume 8.8 FL 10.6 FL Neutrophils (%) (Auto) 85.0 % 83.8 % Lymphocytes (%) (Auto) 6.2 % 7.6 % Monocytes (%) (Auto) 8.3 % 8.1 % Eosinophils (%) (Auto) 0.4 % 0.4 % Basophils (%) (Auto) 0.1 % 0.1 % Neutrophils # (Auto) 12.4 TH/MM3 8.3 TH/MM3 Lymphocytes # (Auto) 0.9 TH/MM3 0.8 TH/MM3 Monocytes # (Auto) 1.2 TH/MM3 0.8 TH/MM3 Eosinophils # (Auto) 0.1 TH/MM3 0.0 TH/MM3 Basophils # (Auto) 0.0 TH/MM3 0.0 TH/MM3 CBC Comment AUTO DIFF AUTO DIFF Differential Total Cells 100 Counted Neutrophils % (Manual) 88 % Band Neutrophils % 6 % Lymphocytes % 1 % Monocytes % 5 % Neutrophils # (Manual) 13.7 TH/MM3 Differential Comment FINAL DIFF AUTO DIFF MANUAL CONFIRMED Platelet Estimate LOW LOW Platelet Morphology Comment NORMAL NORMAL Laboratory Tests Test 09/05/16 09/05/16 09/06/16 06:05 20:22 05:21 Sodium Level 132 MEQ/L 132 MEQ/L 133 MEQ/L Potassium Level 4.3 MEQ/L 4.0 MEQ/L 4.0 MEQ/L Chloride Level 100 MEQ/L 98 MEQ/L 101 MEQ/L Carbon Dioxide Level 26.6 MEQ/L 27.3 MEQ/L 26.0 MEQ/L Anion Gap 5 MEQ/L 7 MEQ/L 6 MEQ/L Blood Urea Nitrogen 25 MG/DL 24 MG/DL 24 MG/DL Creatinine 0.92 MG/DL 0.95 MG/DL 0.75 MG/DL Estimat Glomerular Filtration 83 ML/MIN 80 ML/MIN 105 ML/MIN Rate Random Glucose 107 MG/DL 141 MG/DL 113 MG/DL Calcium Level 8.2 MG/DL 7.9 MG/DL 7.9 MG/DL Magnesium Level 1.9 MG/DL Total Creatine Kinase 31 U/L Troponin I 0.10 NG/ML B-Type Natriuretic Peptide 437 PG/ML Microbiology Date/Time Procedure Status Source Growth 09/03/16 16:00 Aerobic Blood Culture - Preliminary Resulted Blood Peripheral Viridans Streptococcus Grp 09/03/16 16:00 Anaerobic Blood Culture - Preliminary Resulted Viridans Streptococcus Grp 09/03/16 16:13 Aerobic Blood Culture - Preliminary Resulted Blood Peripheral Viridans Streptococcus Grp 09/03/16 16:13 Anaerobic Blood Culture - Preliminary Resulted Viridans Streptococcus [facility] 09/03/16 16:17 Influenza Types A,B Antigen (ANICETO) - Final Complete Nasal Washing NEGATIVE FOR FLU A AND B ANTIGEN.... 09/05/16 15:50 Aerobic Blood Culture - Preliminary Resulted Blood Peripheral NO GROWTH IN 1 DAY 09/05/16 15:50 Anaerobic Blood Culture - Preliminary Resulted Blood Peripheral NO GROWTH IN 1 DAY 09/05/16 15:55 Aerobic Blood Culture - Preliminary Resulted Blood Peripheral NO GROWTH IN 1 DAY 09/05/16 15:55 Anaerobic Blood Culture - Preliminary Resulted Blood Peripheral NO GROWTH IN 1 DAY Imaging Last Impressions Abdomen Ultrasound 09/04/16 0000 Signed Impressions: Service Date/Time: Sunday, September 04, 2016 08:46 - CONCLUSION: No clear window for paracentesis. Iain Villa MD CT Angiography 09/03/16 1535 Signed Impressions: Service Date/Time: Saturday, September 03, 2016 19:42 - CONCLUSION: 1. Negative for pulmonary embolus. 2. Mild atelectasis in the lungs. Thom Kebede MD Abdomen/Pelvis CT 09/03/16 1059 Signed Impressions: Service Date/Time: Saturday, September 03, 2016 11:40 - CONCLUSION: 1. Cirrhosis of the liver, marked splenomegaly and esophageal varices. 2. Small amount of ascites within the abdomen. 3. Stable right upper pole renal cyst. 4. Degenerative changes, scoliosis and multiple compression deformities involving the lumbar spine. Alexandr Oakley MD Thoracic Spine MRI 09/03/16 0000 Signed Impressions: Service Date/Time: Saturday, September 03, 2016 17:59 - CONCLUSION: 1. Mild degenerative disc disease. No significant canal stenosis. Specifically no evidence for osteomyelitis. No cord impingement or cord edema. No abnormal enhancing lesions in the thoracic spine. Thom Kebede MD Lumbar Spine MRI 09/03/16 0000 Signed Impressions: Service Date/Time: Saturday, September 03, 2016 17:59 - CONCLUSION: 1. Negative for osteomyelitis. No abnormal enhancing lesion within the lumbar spine. 2. Remote mild compression deformities of L1 and L2. 3. Mild central canal stenosis at L2-3-4. Mild bilateral neural foraminal encroachment between L2 and L5 bilaterally. Thom Kebede MD Cervical Spine MRI 09/03/16 0000 Signed Impressions: Service Date/Time: Saturday, September 03, 2016 17:59 - CONCLUSION: 1. No evidence for osteomyelitis. No fracture or spondylolisthesis. 2. Broad-based disc protrusions at C3-4-5 resulting in mild cord compression. 3. Degenerative change at C5-6-7-T1 effacing the thecal sac around the cord. Thom Kebede MD Physical Exam CONSTITUTIONAL/GENERAL: This is an aobese elderly patient, in no apparent distress. TUBES/LINES/DRAINS: SKIN: No jaundice, rashes, or lesions. Ecchymoses on upper extremities. Skin temperature appropriate. Not diaphoretic. HEAD: Atraumatic. Normocephalic. EYES: Pupils equal and round and reactive. Extraocular motions intact. No scleral icterus. No injection or drainage. Fundi not examined. ENT: Hearing grossly normal. Nose without bleeding or purulent drainage. Mucosae without visible erythema, exudates, masses, or lesions. Oral hygein poor, dentition is in poor shape NECK: Trachea midline. Supple, nontender. No palpable thyroid enlargement or nodularity. CARDIOVASCULAR: irregular rate and rhythm with pauses; no murmurs. No JVD. Peripheral pulses symmetric. murmur 2/6 R upper sternal border, ? holosystolic RESPIRATORY/CHEST: Symmetric, unlabored respirations. Clear to auscultation. Breath sounds equal bilaterally. No wheezes, rales, or rhonchi. GASTROINTESTINAL: Abdomen soft, non-tender, nondistended. No hepato-splenomegaly , or palpable masses. No guarding. Bowel sounds present. GENITOURINARY: Without palpable bladder distension. MUSCULOSKELETAL: Extremities without clubbing, cyanosis, + trace edema. B/l chronic hyperpigmentation more prominent on the LLE No joint tenderness or effusion noted. No calf tenderness. No mottling or clubbing. LYMPHATICS: No palpable cervical or supraclavicular adenopathy. NEUROLOGICAL: Awake and alert. Motor and sensory grossly within normal limits. Follows commands. Speech mostly garbled Moves all extremities. PSYCHIATRIC: No obvious anxiety/depression. no apparent hallucinations or other psychotic thought process. Assessment & Plan Remarks Sepsis, vir strep h/o recent TAVR for LIver cirrosis Mult med prob Here for L flank pain, CT Abd unrevealing for acute prob - pt has marked splenomegaly ? cause of pain Spinal stenosis - NS ff - cont CFTX - 2 D echo, JUANITA - repeat BC dwNadine Devries MD Sep 06, 2016 11:53
[2016-09-06] MEDS: oxyCODONE/ACETAMINOPHEN 10 MG/325 MG TAB PO PRN ×3 (12:35→22:15)
[2016-09-06] MEDS: SODIUM CHLOR 0.9% 1000 ML INJ 1,000 ML IV SCH (12:59)
--- NOTE | 2016-09-06 15:57 | EC ---
Study Study Date:09/06/2016 STUDY CONCLUSIONS SUMMARY - Left ventricle: The cavity size was normal. Wall thickness was normal. Systolic function was normal. The estimated ejection fraction was in the range of 55% to 60%. Wall motion was normal; there were no regional wall motion abnormalities. - Aortic valve: There was severe stenosis. Valve area: 0.38cm^2(VTI). Valve area: 0.45cm^2 (Vmax). - Mitral valve: Mild regurgitation. - Left atrium: The atrium was moderately dilated. - Right ventricle: The cavity size was mildly to moderately dilated. Wall thickness was normal. - Right atrium: The atrium was mildly dilated. - Pulmonary arteries: PA peak pressure: 44mm Hg (S). If LV function is below 40, please consider prescribing an ACEI or ARB or document rationale for non-use. PROCEDURE DATA STUDY STATUS: Elective. Procedure: Transthoracic echocardiography. Image quality was good. Scanning was performed from the parasternal, apical, and subcostal acoustic windows. Study completion: The patient tolerated the procedure well. Transthoracic echocardiography. M-mode, complete 2D, complete spectral Doppler, and color Doppler. Patient status: Inpatient. CARDIAC ANATOMY LEFT VENTRICLE: The cavity size was normal. Wall thickness was normal. Systolic function was normal. The estimated ejection fraction was in the range of 55% to 60%. Wall motion was normal; there were no regional wall motion abnormalities. AORTIC VALVE: [place]. Doppler: There was severe stenosis. No regurgitation. Valve area: 0.38cm^2(VTI). Valve area: 0.45cm^2 (Vmax). Mean gradient: 54mm Hg (S). Peak gradient: 75mm Hg (S). AORTA: Aortic root: The aortic root was normal in size. MITRAL VALVE: Structurally normal valve. Doppler: Transvalvular velocity was within the normal range. There was no evidence for stenosis. Mild regurgitation. LEFT ATRIUM: The atrium was moderately dilated. RIGHT VENTRICLE: The cavity size was mildly to moderately dilated. Wall thickness was normal. PULMONIC VALVE: Doppler: Transvalvular velocity was within the normal range. There was no evidence for stenosis. No regurgitation. TRICUSPID VALVE: Poorly visualized. Structurally normal valve. Doppler: Transvalvular velocity was within the normal range. No regurgitation. PULMONARY ARTERY: The main pulmonary artery was normal-sized. Systolic pressure was within the normal range. RIGHT ATRIUM: The atrium was mildly dilated. PERICARDIUM: There was no pericardial effusion. SYSTEMIC VEINS: Inferior vena cava: The vessel was normal in size. BASIC MEASUREMENTS ADULT Normal Left ventricle LV internal dimension, ED, chordal level, *55.8 mm 43-52 PLAX LV internal dimension, ES, chordal level, *42.6 mm 23-38 PLAX Fractional shortening, chordal level, PLAX *24 % >29 LV posterior wall thickness, ED 8.79 mm IVS/LVPW ratio, ED *1.62 <1.3 Ventricular septum Septal thickness, ED 14.2 mm Right ventricle RV internal dimension, ED, PLAX 36.5 mm 19-38 BASIC MEASUREMENTS ADULT Normal Aorta Root diameter, ED 29 mm 20-37 Left atrium Anterior-posterior dimension, ES *55 mm 19-40 LA/aortic root ratio 1.9 DOPPLER MEASUREMENTS ADULT Normal Main pulmonary artery Pressure, S *44 mm Hg =30 Aortic valve Peak velocity, S 433 cm/s Mean velocity, S 355 cm/s VTI, S 102 cm Mean gradient, S 54 mm Hg Peak gradient, S 75 mm Hg Valve area, VTI 0.38 cm^2 Valve area, Vmax 0.45 cm^2 Tricuspid valve Regurgitant peak velocity 292 cm/s Peak RV-RA gradient, S 34 mm Hg Systemic veins Estimated CVP 10 mm Hg Right ventricle RV pressure, S *44 mm Hg <30 LEGEND: Mean values are shown as u=mean value. Asterisk (*) patel values outside specified normal range. Prepared and signed by Cornelio Amaro [id number]
--- NOTE | 2016-09-06 16:42 | HHI.GIFU ---
Subjective Remarks Transferred to CIC unit for atrial fibrillation with runs of Vtach, to be started on amiodarone gtt. C/O back pain, but no n/v/abdominal pain. No bleeding. (Pastora Bourne) Objective Vitals I&O Vital Signs Date Time Temp Pulse Resp B/P Pulse Ox O2 Delivery O2 Flow Rate FiO2 09/06/16 16:29 09/06/16 14:39 98.0 65 20 126/82 92 09/06/16 11:45 98.0 59 20 113/84 94 09/06/16 08:00 96.1 61 20 112/63 92 09/06/16 04:00 96.8 66 22 106/55 89 09/06/16 03:06 62 09/06/16 03:00 58 09/06/16 00:00 96.9 78 18 110/78 96 09/05/16 21:07 73 09/05/16 19:58 97.2 76 19 104/76 94 I/O 09/05/16 09/05/16 09/05/16 09/06/16 09/06/16 09/06/16 07:00 15:00 23:00 07:00 15:00 23:00 Intake Total 1066 ml 480 ml 480 ml 240 ml 120 ml Output Total 970 ml 400 ml 950 ml 1000 ml 400 ml Balance 96 ml 80 ml -470 ml -760 ml -280 ml Intake Oral 240 ml 480 ml 480 ml 240 ml 120 ml IV Total 826 ml Output Urine Total 970 ml 400 ml 950 ml 1000 ml 400 ml # Bowel Movements 0 0 0 Laboratory Laboratory Tests Test 09/05/16 09/06/16 20:22 05:21 Sodium Level 132 133 Potassium Level 4.0 4.0 Chloride Level 98 101 Carbon Dioxide Level 27.3 26.0 Anion Gap 7 6 Blood Urea Nitrogen 24 24 Creatinine 0.95 0.75 Estimat Glomerular Filtration 80 105 Rate Random Glucose 141 113 Calcium Level 7.9 7.9 Magnesium Level 1.9 Total Creatine Kinase 31 Troponin I 0.10 White Blood Count 10.0 Red Blood Count 3.45 Hemoglobin 11.7 Hematocrit 33.5 Mean Corpuscular Volume 97.0 Mean Corpuscular Hemoglobin 33.8 Mean Corpuscular Hemoglobin 34.8 Concent Red Cell Distribution Width 15.5 Platelet Count 31 Mean Platelet Volume 10.6 Neutrophils (%) (Auto) 83.8 Lymphocytes (%) (Auto) 7.6 Monocytes (%) (Auto) 8.1 Eosinophils (%) (Auto) 0.4 Basophils (%) (Auto) 0.1 Neutrophils # (Auto) 8.3 Lymphocytes # (Auto) 0.8 Monocytes # (Auto) 0.8 Eosinophils # (Auto) 0.0 Basophils # (Auto) 0.0 CBC Comment AUTO DIFF Differential Comment AUTO DIFF CONFIRMED Platelet Estimate LOW Platelet Morphology Comment NORMAL B-Type Natriuretic Peptide 437 Date/Time Procedure Status Source Growth 09/05/16 15:55 Aerobic Blood Culture - Preliminary Resulted Blood Peripheral NO GROWTH IN 1 DAY 09/05/16 15:55 Anaerobic Blood Culture - Preliminary Resulted Blood Peripheral NO GROWTH IN 1 DAY 09/03/16 16:17 Influenza Types A,B Antigen (ANICETO) - Final Complete Nasal Washing NEGATIVE FOR FLU A AND B ANTIGEN.... 09/03/16 16:13 Aerobic Blood Culture - Final Complete Blood Peripheral Viridans Streptococcus Grp 09/03/16 16:13 Anaerobic Blood Culture - Final Complete Viridans Streptococcus Grp Imaging Last Impressions Abdomen Ultrasound 09/04/16 0000 Signed Impressions: Service Date/Time: Sunday, September 04, 2016 08:46 - CONCLUSION: No clear window for paracentesis. Iain Villa MD CT Angiography 09/03/16 1535 Signed Impressions: Service Date/Time: Saturday, September 03, 2016 19:42 - CONCLUSION: 1. Negative for pulmonary embolus. 2. Mild atelectasis in the lungs. Thom Kebede MD Abdomen/Pelvis CT 09/03/16 1059 Signed Impressions: Service Date/Time: Saturday, September 03, 2016 11:40 - CONCLUSION: 1. Cirrhosis of the liver, marked splenomegaly and esophageal varices. 2. Small amount of ascites within the abdomen. 3. Stable right upper pole renal cyst. 4. Degenerative changes, scoliosis and multiple compression deformities involving the lumbar spine. Alexandr Oakley MD Thoracic Spine MRI 09/03/16 0000 Signed Impressions: Service Date/Time: Saturday, September 03, 2016 17:59 - CONCLUSION: 1. Mild degenerative disc disease. No significant canal stenosis. Specifically no evidence for osteomyelitis. No cord impingement or cord edema. No abnormal enhancing lesions in the thoracic spine. Thom Kebede MD Lumbar Spine MRI 09/03/16 0000 Signed Impressions: Service Date/Time: Saturday, September 03, 2016 17:59 - CONCLUSION: 1. Negative for osteomyelitis. No abnormal enhancing lesion within the lumbar spine. 2. Remote mild compression deformities of L1 and L2. 3. Mild central canal stenosis at L2-3-4. Mild bilateral neural foraminal encroachment between L2 and L5 bilaterally. Thom Kebede MD Cervical Spine MRI 09/03/16 0000 Signed Impressions: Service Date/Time: Saturday, September 03, 2016 17:59 - CONCLUSION: 1. No evidence for osteomyelitis. No fracture or spondylolisthesis. 2. Broad-based disc protrusions at C3-4-5 resulting in mild cord compression. 3. Degenerative change at C5-6-7-T1 effacing the thecal sac around the cord. Thom Kebede MD Physical Exam HEENT: Normocephalic; atraumatic; no jaundice. CHEST: CTA CARDIAC: Irregular ABDOMEN: Soft, nondistended, nontender;hepatosplenomegaly; bowel sounds are present in all four quadrants. EXTREMITIES: No clubbing, cyanosis, or edema. SKIN: Normal; no rash; no jaundice. HEMATOLOGIST ONCOLOGIST: No focal deficits; alert and oriented times three. Very [place] (Pastora Bourne) Assessment and Plan Plan ASSESSMENT: - Left Flank Pain. Abdomen/Pelvis CT (09/03/16)----> 1. Cirrhosis of the liver, marked splenomegaly and esophageal varices. 2. Small amount of ascites within the abdomen. 3. Stable right upper pole renal cyst. 4. Degenerative changes, scoliosis and multiple compression deformities involving the lumbar spine. An US guided paracentesis was ordered, but he had no clear window for paracentesis. EGD/Colonoscopy (02/26/16) revealed portal gastropathy, mild normal colonoscopy. He is not having any n /v, decreased appetite, constipation, diarrhea, melena, or hematochezia. Doubt that his left flank pain is of GI origin. - Liver cirrhosis/Hepatitis C. Genotype 2B, Viral load in February was 329,000. Not currently drinking. T. Bili 5.1, AST 34, ALT 18, ALk Phosph 88 on 09/04. - Ascites, small amount. Not a clear window to drain. - Leukocytosis, Bacteremia with GPC. Improved. WBC 10.0 - Anemia. 11.7/33.5. - Atrial fibrillation with runs of Vtach. Nurse reports that he had a few runs of vtach and atrial fibrillation and was transferred to be started on a amiodarone gtt. PLAN: - LAURA - PPI - Abx per primary - Monitor labs - Supportive care - Further recommendations to follow based on results of above - Pt seen and examined by Dr. Dixon and myself and this note is written on her behalf (Pastora Bourne) Physician Comments seen, examined agree with above (Rina Dixon MD) Pastora Bourne Sep 06, 2016 16:42 Rina Dixon MD Sep 06, 2016 18:13
[2016-09-06] MEDS ORDERED: MAGNESIUM SULFATE 1 GM PREMIX 100 ML IV ONE (22:00)
[2016-09-07] VITALS (26 sets, daily range): BP systolic 101–132; BP diastolic 66–79; PULSE 52–76; RESP 15–20; TEMP 98–98.3; O2SAT 94–100
[2016-09-07 00:32] LABS: BICARBONATE 29.4 MEQ/L (21.0-32.0); MAGNESIUM 2.1 MG/DL (1.5-2.5); POTASSIUM 4.2 MEQ/L (3.5-5.1)
[2016-09-07] MEDS: SODIUM CHLOR 0.9% 1000 ML INJ 1,000 ML IV SCH ×2 (01:15→15:33)
[2016-09-07] MEDS: oxyCODONE/ACETAMINOPHEN 10 MG/325 MG TAB PO PRN ×3 (02:30→18:13)
[2016-09-07 05:54] LABS: HEMATOCRIT 32.3 % (39.0-51.0); MEAN CELL VOLUME 97.7 FL (80.0-100.0); MEAN CORPUSCULAR HGB CONC 33.8 % (32.0-36.0); PLATELET COUNT 24 TH/MM3 (150-450); RED BLOOD COUNT 3.31 MIL/MM3 (4.50-5.90); RED CELL DISTRIBUTION WIDTH 14.8 % (11.6-17.2)
[2016-09-07 06:01] LABS: REVIEW FLAG FINAL
[2016-09-07 06:09] LABS: BICARBONATE 28.4 MEQ/L (21.0-32.0); MAGNESIUM 1.9 MG/DL (1.5-2.5); POTASSIUM 4.1 MEQ/L (3.5-5.1)
[2016-09-07] MEDS: INSULIN ASPART SUPPLEMENTAL SCALE SQ SCH ×4 (06:11→21:00)
[2016-09-07] MEDS: SODIUM CHLORIDE 0.9% FLUSH 5 ML FLUSH FLUSH SCH (09:00)
[2016-09-07] MEDS: cefTRIAXone INJ 2,000 MG in SODIUM CHLORIDE 0.9% INJ 100 ML IV SCH (10:48)
--- NOTE | 2016-09-07 12:39 | HHI.GIFU ---
Subjective Remarks Resting in bed. Denies n/v/abdominal pain. No diarrhea. states flank pain improved. Objective Vitals I&O Vital Signs Date Time Temp Pulse Resp B/P Pulse Ox O2 Delivery O2 Flow Rate FiO2 09/07/16 08:00 98.0 76 18 104/66 98 09/07/16 05:00 62 09/07/16 04:01 18 09/07/16 04:00 60 09/07/16 03:14 98.0 59 20 124/79 94 09/07/16 03:00 60 09/07/16 02:00 58 09/07/16 01:00 64 09/07/16 00:20 98.2 63 20 106/79 94 09/07/16 00:00 62 09/06/16 23:00 56 09/06/16 22:00 58 09/06/16 21:00 58 09/06/16 20:20 98.2 50 20 102/55 94 09/06/16 20:00 56 09/06/16 19:00 54 09/06/16 16:29 09/06/16 14:39 98.0 65 20 126/82 92 I/O 09/06/16 09/06/16 09/06/16 09/07/16 09/07/16 09/07/16 07:00 15:00 23:00 07:00 15:00 23:00 Intake Total 240 ml 120 ml Output Total 1000 ml 400 ml 500 ml Balance -760 ml -280 ml -500 ml Intake Oral 240 ml 120 ml Output Urine Total 1000 ml 400 ml 500 ml # Bowel Movements 0 Laboratory Laboratory Tests Test 09/06/16 09/07/16 23:55 05:20 Sodium Level 132 134 Potassium Level 4.2 4.1 Chloride Level 99 101 Carbon Dioxide Level 29.4 28.4 Anion Gap 4 5 Blood Urea Nitrogen 23 21 Creatinine 0.89 0.78 Estimat Glomerular Filtration 86 100 Rate Random Glucose 130 111 Calcium Level 8.3 8.0 Magnesium Level 2.1 1.9 White Blood Count 7.0 Red Blood Count 3.31 Hemoglobin 10.9 Hematocrit 32.3 Mean Corpuscular Volume 97.7 Mean Corpuscular Hemoglobin 33.0 Mean Corpuscular Hemoglobin 33.8 Concent Red Cell Distribution Width 14.8 Platelet Count 24 Mean Platelet Volume 8.3 Date/Time Procedure Status Source Growth 09/05/16 15:55 Aerobic Blood Culture - Preliminary Resulted Blood Peripheral NO GROWTH IN 2 DAYS 09/05/16 15:55 Anaerobic Blood Culture - Preliminary Resulted Blood Peripheral NO GROWTH IN 2 DAYS 09/03/16 16:17 Influenza Types A,B Antigen (ANICETO) - Final Complete Nasal Washing NEGATIVE FOR FLU A AND B ANTIGEN.... 09/03/16 16:13 Aerobic Blood Culture - Final Complete Blood Peripheral Viridans Streptococcus Grp 09/03/16 16:13 Anaerobic Blood Culture - Final Complete Viridans Streptococcus Grp Imaging Last Impressions Abdomen Ultrasound 09/04/16 0000 Signed Impressions: Service Date/Time: Sunday, September 04, 2016 08:46 - CONCLUSION: No clear window for paracentesis. Iain Villa MD CT Angiography 09/03/16 1535 Signed Impressions: Service Date/Time: Saturday, September 03, 2016 19:42 - CONCLUSION: 1. Negative for pulmonary embolus. 2. Mild atelectasis in the lungs. Thmo Kebede MD Abdomen/Pelvis CT 09/03/16 1059 Signed Impressions: Service Date/Time: Saturday, September 03, 2016 11:40 - CONCLUSION: 1. Cirrhosis of the liver, marked splenomegaly and esophageal varices. 2. Small amount of ascites within the abdomen. 3. Stable right upper pole renal cyst. 4. Degenerative changes, scoliosis and multiple compression deformities involving the lumbar spine. Alexandr Oakley MD Thoracic Spine MRI 09/03/16 0000 Signed Impressions: Service Date/Time: Saturday, September 03, 2016 17:59 - CONCLUSION: 1. Mild degenerative disc disease. No significant canal stenosis. Specifically no evidence for osteomyelitis. No cord impingement or cord edema. No abnormal enhancing lesions in the thoracic spine. Thom Kebede MD Lumbar Spine MRI 09/03/16 0000 Signed Impressions: Service Date/Time: Saturday, September 03, 2016 17:59 - CONCLUSION: 1. Negative for osteomyelitis. No abnormal enhancing lesion within the lumbar spine. 2. Remote mild compression deformities of L1 and L2. 3. Mild central canal stenosis at L2-3-4. Mild bilateral neural foraminal encroachment between L2 and L5 bilaterally. Thom Kebede MD Cervical Spine MRI 09/03/16 0000 Signed Impressions: Service Date/Time: Far[place], September 03, 2016 17:59 - CONCLUSION: 1. No evidence for osteomyelitis. No fracture or spondylolisthesis. 2. Broad-based disc protrusions at C3-4-5 resulting in mild cord compression. 3. Degenerative change at C5-6-7-T1 effacing the thecal sac around the cord. Thom Kebede MD Physical Exam HEENT: Normocephalic; atraumatic; no jaundice. CHEST: CTA CARDIAC: RRR ABDOMEN: Soft, nondistended, nontender;hepatosplenomegaly; bowel sounds are present in all four quadrants. EXTREMITIES: No clubbing, cyanosis, or edema. SKIN: Normal; no rash; no jaundice. CALL CENTER SUPPORT CONSULTANT: No focal deficits; alert and oriented times three. Very [place] Assessment and Plan Plan ASSESSMENT: - Left Flank Pain. Abdomen/Pelvis CT (09/03/16)----> 1. Cirrhosis of the liver, marked splenomegaly and esophageal varices. 2. Small amount of ascites within the abdomen. 3. Stable right upper pole renal cyst. 4. Degenerative changes, scoliosis and multiple compression deformities involving the lumbar spine. An US guided paracentesis was ordered, but he had no clear window for paracentesis. EGD/Colonoscopy (02/26/16) revealed portal gastropathy, mild normal colonoscopy. He is not having any n/v, decreased appetite, constipation, diarrhea, melena, or hematochezia. Doubt that his left flank pain is of GI origin. Flank pain improved. States he is not having at this time. - Liver cirrhosis/Hepatitis C. Genotype 2B, Viral load in February was 329,000. Not currently drinking. Stable. - Ascites, small amount. Not a clear window to drain. - Leukocytosis, Bacteremia with GPC. Improved. WBC 7 - Anemia. 10.9/32.3 - Atrial fibrillation with runs of Vtach. Nurse reports that he had a few runs of vtach and atrial fibrillation and was transferred to be started on a amiodarone gtt. Now with RRR PLAN: - LAURA - PPI - Abx per primary - Monitor labs - GI will sign off, please reconsult as needed - Pt seen and examined by Dr. Dixon and myself and this note is written on her behalf Pastora Bourne Sep 07, 2016 12:39
[2016-09-07] MEDS ORDERED: CYCLOBENZAPRINE HCL 10 MG TAB PO ONE (16:00)
--- NOTE | 2016-09-07 16:06 | HHI.PR ---
Subjective Remarks The pt was complaining of significant back pain. He wanted me to speak with his ex but she did not pickling drum operator the call. The pt was frustrated and nursing informed me that a reporter was on their way. Objective Vitals Vital Signs Date Time Temp Pulse Resp B/P Pulse Ox O2 Delivery O2 Flow Rate FiO2 09/07/16 14:00 56 09/07/16 13:00 64 09/07/16 12:00 76 09/07/16 11:00 72 09/07/16 09:00 58 09/07/16 08:00 56 09/07/16 08:00 98.0 76 18 104/66 98 09/07/16 07:00 60 09/07/16 05:00 62 09/07/16 04:01 18 09/07/16 04:00 60 09/07/16 03:14 98.0 59 20 124/79 94 09/07/16 03:00 60 09/07/16 02:00 58 09/07/16 01:00 64 09/07/16 00:20 98.2 63 20 106/79 94 09/07/16 00:00 62 09/06/16 23:00 56 09/06/16 22:00 58 09/06/16 21:00 58 09/06/16 20:20 98.2 50 20 102/55 94 09/06/16 20:00 56 09/06/16 19:00 54 09/06/16 16:29 I/O 09/06/16 09/06/16 09/06/16 09/07/16 09/07/16 09/07/16 07:00 15:00 23:00 07:00 15:00 23:00 Intake Total 240 ml 120 ml Output Total 1000 ml 400 ml 500 ml Balance -760 ml -280 ml -500 ml Intake Oral 240 ml 120 ml Output Urine Total 1000 ml 400 ml 500 ml # Bowel Movements 0 Result Diagram: 09/07/16 0520 09/07/16 0520 Imaging Last Impressions Abdomen Ultrasound 09/04/16 0000 Signed Impressions: Service Date/Time: Sunday, September 04, 2016 08:46 - CONCLUSION: No clear window for paracentesis. Iain Villa MD CT Angiography 09/03/16 1535 Signed Impressions: Service Date/Time: Saturday, September 03, 2016 19:42 - CONCLUSION: 1. Negative for pulmonary embolus. 2. Mild atelectasis in the lungs. Thom Kebede MD Abdomen/Pelvis CT 09/03/16 1059 Signed Impressions: Service Date/Time: Saturday, September 03, 2016 11:40 - CONCLUSION: 1. Cirrhosis of the liver, marked splenomegaly and esophageal varices. 2. Small amount of ascites within the abdomen. 3. Stable right upper pole renal cyst. 4. Degenerative changes, scoliosis and multiple compression deformities involving the lumbar spine. Alexandr Oakley MD Thoracic Spine MRI 09/03/16 0000 Signed Impressions: Service Date/Time: Saturday, September 03, 2016 17:59 - CONCLUSION: 1. Mild degenerative disc disease. No significant canal stenosis. Specifically no evidence for osteomyelitis. No cord impingement or cord edema. No abnormal enhancing lesions in the thoracic spine. Thom Kebede MD Lumbar Spine MRI 09/03/16 0000 Signed Impressions: Service Date/Time: Saturday, September 03, 2016 17:59 - CONCLUSION: 1. Negative for osteomyelitis. No abnormal enhancing lesion within the lumbar spine. 2. Remote mild compression deformities of L1 and L2. 3. Mild central canal stenosis at L2-3-4. Mild bilateral neural foraminal encroachment between L2 and L5 bilaterally. Thom Kebede MD Cervical Spine MRI 09/03/16 0000 Signed Impressions: Service Date/Time: Saturday, September 03, 2016 17:59 - CONCLUSION: 1. No evidence for osteomyelitis. No fracture or spondylolisthesis. 2. Broad-based disc protrusions at C3-4-5 resulting in mild cord compression. 3. Degenerative change at C5-6-7-T1 effacing the thecal sac around the cord. Thom Kebede MD Objective Remarks General: No acute distress. Deaf. HEENT: NC, AT. Heart: Bradycardic. No murmur. Lungs: Clear to auscultation bilaterally. No wheezes, rales, or rhonchi. Breathing is nonlabored. Abdomen: Soft, nontender, obese. BACK: Tenderness to palpation along thoracic and lumbar spine. Extremities: Trace to 1+ bilateral lower extremity edema with chronic venous stasis changes. Psych: Slightly agitated. Procedures None Medications and IVs Current Medications Medications (Trade) Dose Ordered Sig/Blaire Route Start Time Stop Time Status Last Admin (NS Flush) 2 ml UNSCH PRN FLUSH 09/03/16 23:45 (NS Flush) 2 ml BID FLUSH 09/04/16 09:00 09/07/16 09:00 (Narcan Inj) 0.4 mg UNSCH PRN IV 09/03/16 23:45 (D50w (Vial) Inj) 25 ml UNSCH PRN IV PUSH 09/04/16 00:15 Glucagon 1 mg 1 mg UNSCH PRN OTHER 09/04/16 00:15 Ceftriaxone Sodium 2000 mg/ Sodium Chloride 100 ml @ 200 mls/hr Q24H IV 09/04/16 08:00 09/07/16 10:48 (NS 1000 ml Inj) 1,000 ml @ 70 mls/hr [id number] IV 09/04/16 01:45 09/07/16 01:15 (Morphine Inj) 4 mg Q4H PRN IV PUSH 09/04/16 02:00 09/06/16 04:55 (Lopressor) 25 mg BID PO 09/06/16 21:00 Hold (Percocet 10-325 Mg) 1 tab Q4H PRN PO 09/06/16 11:15 09/07/16 10:48 (Colace) 100 mg BID PO 09/07/16 21:00 UNV (Senokot) 17.2 mg DAILY PO 09/07/16 16:00 UNV (Flexeril) 10 mg ONCE ONCE PO 09/07/16 16:00 09/07/16 16:01 UNV (Flexeril) 5 mg Q8H PRN PO 09/07/16 16:00 UNV A/P Problem List: (1) Sepsis ICD Code: A41.9 Status: Acute (2) Cirrhosis ICD Code: K74.60 Status: Chronic (3) Left flank pain ICD Code: R10.9 Status: Acute (4) Cervical disc herniation ICD Code: M50.20 Status: Acute (5) Hyponatremia ICD Code: E87.1 Status: Acute (6) Bacteremia ICD Code: R78.81 Status: Acute (7) Elevated troponin I level ICD Code: R74.8 Status: Acute Assessment and Plan Sepsis/ bacteremia Ultrasound-guided paracentesis ordered but no window for paracentesis per US. Blood cultures growing viridans strep. ID consult appreciated. Concern for endocarditis. No evidence of endocarditis on TTE. - Continue Rocephin. - follow repeat blood cultures. - consider JUANITA. V tach/ sinus pauses Cardiology consult appreciated. Continues to have runs of V tach. EP consulted but unable to place PPM in setting of bacteremia. - continue beta gabriella. - telemetry. - follow up with cardiology. Cirrhosis of the liver CT shows marked splenomegaly and esophageal varices. Also small amount of ascites within the abdomen. Appreciate GI recommendations. - GI signed off. Elevated troponin Appreciate cardiology recommendations. Patient has had prior cardiac catheterization and was found to have normal coronary arteries. Echo with normal EF. - continue medical management. Thrombocytopenia Chronic, secondary to cirrhosis. Plt count has been decreasing. - Monitor labs. C3 C4 C5 herniated disc With mild spinal cord compression. Appreciate neurosurgery recommendations. No surgical intervention planned at this time. Pt still with significant pain. - Continue pain control. - PT. - Flexeril and pain control as needed. DVT prophylaxis: SCDs. Chemical prophylaxis contraindicated. Discharge Planning Awaiting clinical improvement. Gualberto Weiss DO Sep 07, 2016 16:06
[2016-09-07] MEDS ORDERED: PILL SPLITTER OTHER PRN (16:15)
--- NOTE | 2016-09-07 16:48 | MB ---
cc: BRANNON MILLER M.D. DATE OF CONSULTATION 09/07/16 REASON FOR CONSULTATION Episode of nonsustained ventricular tachycardia and some pauses. HISTORY OF PRESENT ILLNESS Mr. Stovall is a 66-year-old gentleman with history of liver cirrhosis, thrombocytopenia, aortic valve replaced status post TAVR, normal coronaries, proximal atrial fibrillation admitted due to chest pain. Troponin elevated. During hospitalization, the patient developed multiple episodes of self-limited ventricular tachycardia. I was consulted for further evaluation. The chart was reviewed. The patient was evaluated. Case discussed over the phone with Dr. Wadsworth. Also after seeing the gentleman, I did request the presents of an lithopone mill worker to re-discuss the case again with the patient. ALLERGIES LISINOPRIL SOCIAL HISTORY The gentleman denies smoking and drinking. FAMILY HISTORY Noncontributory to his current medical condition. MEDICATIONS 1. Colace. 2. Senokot 3. Flexeril 4. Ceftriaxone 5. Percocet. 6. Morphine p.r.n. REVIEW OF SYSTEMS Currently the patient refers some back pain but no chest pain, no chest discomfort. No fever. PHYSICAL EXAMINATION GENERAL: Alert, fully oriented. VITAL SIGNS: Blood pressure 104/66, pulse 56, respiratory rate 18 LUNGS: Ventilated CARDIOVASCULAR: S1-S2, no gallop or murmur. ABDOMEN: Soft. No mass. No bruit. EXTREMITIES: With no edema. CARDIOLOGY STUDIES Electrocardiogram shows atrial fibrillation, ___junctional rhythm, interventricular conduction delay, diffuse ST changes. LABORATORY DATA Hemoglobin is 10.9, white blood cell is seven, coming from 17.2, potassium 4.1, creatinine 0.78, platelets as usual very low 24. ASSESSMENT AND RECOMMENDATIONS Mr. Stovall is currently in atrial fibrillation. Heart rate is controlled. 2-D echo yesterday indicated ejection fraction of around 50-55%. He has some episode of self-limited ventricular tachyarrhythmia. The gentleman has four positive blood cultures. I discussed this the case with Dr. Wadsworth. He is currently on IV antibiotic. He has also severe thrombocytopenia due to his liver cirrhosis. The gentleman is stable. Previous left heart catheterization a year ago and a half ago indicates non-occlusion. There is no need for nuclear stress test at this point. Because of the gentleman's low platelet, history of thrombocytopenia and his infection, the best approach is medical therapy. I will add metoprolol to the current medication. He will be observed. If there is more episode of tachyarrhythmia then I will consider electrophysiology study. Case extensively discussed with the patient. I will closely monitor him during hospitalization. MD CORINA Patel/ /4:16 PM /4:38 PM
[2016-09-07] MEDS: SENNOSIDES 8.6 MG TAB PO SCH (18:13)
[2016-09-07] MEDS: METOPROLOL TARTRATE 25 MG TAB PO SCH (21:00)
[2016-09-07] MEDS: DOCUSATE SODIUM 100 MG CAP PO SCH (21:00)
[2016-09-08] VITALS (28 sets, daily range): BP systolic 101–133; BP diastolic 51–78; PULSE 50–84; RESP 15–18; TEMP 97.9–98.3; O2SAT 96–100
[2016-09-08] MEDS: oxyCODONE/ACETAMINOPHEN 10 MG/325 MG TAB PO PRN ×3 (04:51→21:17)
[2016-09-08] MEDS: INSULIN ASPART SUPPLEMENTAL SCALE SQ SCH ×4 (06:29→21:00)
[2016-09-08 08:39] LABS: MEAN CELL VOLUME 97.8 FL (80.0-100.0); MEAN CORPUSCULAR HEMOGLOBIN 33.1 PG (27.0-34.0); MEAN CORPUSCULAR HGB CONC 33.8 % (32.0-36.0); PLATELET COUNT 34 TH/MM3 (150-450); RED BLOOD COUNT 3.37 MIL/MM3 (4.50-5.90); RED CELL DISTRIBUTION WIDTH 15.2 % (11.6-17.2); WHITE BLOOD COUNT 6.8 TH/MM3 (4.0-11.0)
[2016-09-08 08:41] LABS: REVIEW FLAG FINAL
[2016-09-08] MEDS: SODIUM CHLORIDE 0.9% FLUSH 5 ML FLUSH FLUSH SCH ×2 (08:52→21:00)
[2016-09-08] MEDS: cefTRIAXone INJ 2,000 MG in SODIUM CHLORIDE 0.9% INJ 100 ML IV SCH (08:52)
[2016-09-08] MEDS: METOPROLOL TARTRATE 25 MG TAB PO SCH (08:53)
[2016-09-08] MEDS: DOCUSATE SODIUM 100 MG CAP PO SCH ×2 (08:53→21:17)
[2016-09-08] MEDS: SENNOSIDES 8.6 MG TAB PO SCH (08:53)
--- NOTE | 2016-09-08 09:54 | PD.CARD.PN ---
Subjective Subjective Remarks No complaints (deaf, interpreted through sign language, family at bedside) Objective Medications Current Medications Medications (Trade) Dose Ordered Sig/Blaire Route Start Time Stop Time Status Last Admin (NS Flush) 2 ml UNSCH PRN FLUSH 09/03/16 23:45 (NS Flush) 2 ml BID FLUSH 09/04/16 09:00 09/07/16 09:00 (Narcan Inj) 0.4 mg UNSCH PRN IV 09/03/16 23:45 (D50w (Vial) Inj) 25 ml UNSCH PRN IV PUSH 09/04/16 00:15 Glucagon 1 mg 1 mg UNSCH PRN OTHER 09/04/16 00:15 (Rocephin Inj/NS Inj) 100 ml @ 200 mls/hr Q24H IV 09/04/16 08:00 09/08/16 08:52 (Morphine Inj) 4 mg Q4H PRN IV PUSH 09/04/16 02:00 09/06/16 04:55 (Lopressor) 25 mg BID PO 09/06/16 21:00 09/08/16 08:53 (Percocet 10-325 Mg) 1 tab Q4H PRN PO 09/06/16 11:15 09/08/16 08:53 (Colace) 100 mg BID PO 09/07/16 21:00 09/08/16 08:53 (Senokot) 17.2 mg DAILY PO 09/07/16 16:00 09/08/16 08:53 (Flexeril) 5 mg Q8H PRN PO 09/07/16 16:00 (Pill Splitter) 1 ea UNSCH PRN OTHER 09/07/16 16:15 Vital Signs / I&O Vital Signs Date Time Temp Pulse Resp B/P Pulse Ox O2 Delivery O2 Flow Rate FiO2 09/08/16 09:00 98.3 09/08/16 08:48 69 18 114/72 97 09/08/16 05:00 66 09/08/16 04:00 62 09/08/16 03:20 98.3 60 15 123/64 100 09/08/16 03:00 56 09/08/16 02:00 58 09/08/16 01:00 54 09/08/16 00:00 62 09/07/16 23:05 98.3 58 15 132/69 100 09/07/16 23:00 64 09/07/16 22:00 58 09/07/16 21:00 60 09/07/16 20:00 72 09/07/16 19:22 98.3 56 15 131/77 100 Manual Cuff/Auscultation 09/07/16 19:00 58 09/07/16 18:00 69 09/07/16 17:00 59 09/07/16 16:00 58 09/07/16 15:00 98.3 59 16 129/71 98 09/07/16 15:00 52 09/07/16 15:00 52 09/07/16 14:00 56 09/07/16 13:00 64 09/07/16 12:00 76 09/07/16 11:00 72 09/07/16 11:00 98.2 72 18 101/67 100 I/O 09/07/16 09/07/16 09/07/16 09/08/16 09/08/16 09/08/16 07:00 15:00 23:00 07:00 15:00 23:00 Intake Total 720 ml 480 ml Output Total 500 ml 900 ml 350 ml Balance -500 ml -180 ml 130 ml Intake Oral 720 ml 480 ml Output Urine Total 500 ml 900 ml 350 ml # Voids 3 # Bowel Movements 0 1 Physical Exam GENERAL: Well-nourished, well-developed patient. SKIN: Warm and dry. HEAD: Normocephalic. EYES: No scleral icterus. No injection or drainage. NECK: Supple, trachea midline. No JVD or lymphadenopathy. CARDIOVASCULAR: bradycardic irregular rhythm, without murmurs, gallops, or rubs. RESPIRATORY: Breath sounds equal bilaterally. No accessory muscle use. GASTROINTESTINAL: Abdomen soft, non-tender, nondistended. EXTREMITIES: No cyanosis, or edema. NEUROLOGICAL: Awake, alert. Non-focal. Laboratory Laboratory Tests Test 09/08/16 08:05 White Blood Count 6.8 TH/MM3 Red Blood Count 3.37 MIL/MM3 Hemoglobin 11.2 GM/DL Hematocrit 33.0 % Mean Corpuscular Volume 97.8 FL Mean Corpuscular Hemoglobin 33.1 PG Mean Corpuscular Hemoglobin 33.8 % Concent Red Cell Distribution Width 15.2 % Platelet Count 34 TH/MM3 Mean Platelet Volume 8.6 FL Imaging Last Impressions Abdomen Ultrasound 09/04/16 0000 Signed Impressions: Service Date/Time: Sunday, September 04, 2016 08:46 - CONCLUSION: No clear window for paracentesis. Iain Villa MD CT Angiography 09/03/16 1535 Signed Impressions: Service Date/Time: Saturday, September 03, 2016 19:42 - CONCLUSION: 1. Negative for pulmonary embolus. 2. Mild atelectasis in the lungs. Thom Kebede MD Abdomen/Pelvis CT 09/03/16 1059 Signed Impressions: Service Date/Time: Saturday, September 03, 2016 11:40 - CONCLUSION: 1. Cirrhosis of the liver, marked splenomegaly and esophageal varices. 2. Small amount of ascites within the abdomen. 3. Stable right upper pole renal cyst. 4. Degenerative changes, scoliosis and multiple compression deformities involving the lumbar spine. Alexandr Oakley MD Thoracic Spine MRI 09/03/16 0000 Signed Impressions: Service Date/Time: Saturday, September 03, 2016 17:59 - CONCLUSION: 1. Mild degenerative disc disease. No significant canal stenosis. Specifically no evidence for osteomyelitis. No cord impingement or cord edema. No abnormal enhancing lesions in the thoracic spine. Thom Kebede MD Lumbar Spine MRI 09/03/16 0000 Signed Impressions: Service Date/Time: Saturday, September 03, 2016 17:59 - CONCLUSION: 1. Negative for osteomyelitis. No abnormal enhancing lesion within the lumbar spine. 2. Remote mild compression deformities of L1 and L2. 3. Mild central canal stenosis at L2-3-4. Mild bilateral neural foraminal encroachment between L2 and L5 bilaterally. Thom Kebede MD Cervical Spine MRI 09/03/16 0000 Signed Impressions: Service Date/Time: Saturday, September 03, 2016 17:59 - CONCLUSION: 1. No evidence for osteomyelitis. No fracture or spondylolisthesis. 2. Broad-based disc protrusions at C3-4-5 resulting in mild cord compression. 3. Degenerative change at C5-6-7-T1 effacing the thecal sac around the cord. Thom Kebede MD Assessment and Plan Problem List: (1) NSVT (nonsustained ventricular tachycardia) Assessment and Plan: One episode overnight <6beats. Pt. denies symptoms (thru conference interpreter) (2) Troponin level elevated Assessment and Plan: Recent negative LHC. Likely in response to infectious process. (3) Atrial fibrillation Assessment and Plan: Not tolerating metoprolol, causing pauses just over 3 seconds. Will d/c. Assessment and Plan D/C metoprolol, continue monitoring per my d/w Dr. Vuong. Problem Qualifiers (1) Atrial fibrillation: Qualified Code: I48.2 - Chronic atrial fibrillation Freda Arevalo Sep 08, 2016 09:54
--- NOTE | 2016-09-08 12:40 | HHI.PR ---
Subjective Remarks The patient was seen in the presence of an micro lab analyst. He said that he wanted his back pain control. He said he has spasms every once in a while that creates a 9 out of 10 pain. He says he understands why he is in the hospital and the multiple conditions that he has at this time. Discussed with nursing. The patient has been having several pauses on telemetry. No prolonged runs of V. tach. Objective Vitals Vital Signs Date Time Temp Pulse Resp B/P Pulse Ox O2 Delivery O2 Flow Rate FiO2 09/08/16 09:00 98.3 09/08/16 08:48 69 18 114/72 97 09/08/16 05:00 66 09/08/16 04:00 62 09/08/16 03:20 98.3 60 15 123/64 100 09/08/16 03:00 56 09/08/16 02:00 58 09/08/16 01:00 54 09/08/16 00:00 62 09/07/16 23:05 98.3 58 15 132/69 100 09/07/16 23:00 64 09/07/16 22:00 58 09/07/16 21:00 60 09/07/16 20:00 72 09/07/16 19:22 98.3 56 15 131/77 100 Manual Cuff/Auscultation 09/07/16 19:00 58 09/07/16 18:00 69 09/07/16 17:00 59 09/07/16 16:00 58 09/07/16 15:00 98.3 59 16 129/71 98 09/07/16 15:00 52 09/07/16 15:00 52 09/07/16 14:00 56 09/07/16 13:00 64 I/O 09/07/16 09/07/16 09/07/16 09/08/16 09/08/16 09/08/16 07:00 15:00 23:00 07:00 15:00 23:00 Intake Total 720 ml 480 ml Output Total 500 ml 900 ml 350 ml Balance -500 ml -180 ml 130 ml Intake Oral 720 ml 480 ml Output Urine Total 500 ml 900 ml 350 ml # Voids 3 # Bowel Movements 0 1 Result Diagram: 09/08/16 0805 09/07/16 0520 Imaging Last Impressions Abdomen Ultrasound 09/04/16 0000 Signed Impressions: Service Date/Time: Sunday, September 04, 2016 08:46 - CONCLUSION: No clear window for paracentesis. Iani Villa MD CT Angiography 09/03/16 1535 Signed Impressions: Service Date/Time: Saturday, September 03, 2016 19:42 - CONCLUSION: 1. Negative for pulmonary embolus. 2. Mild atelectasis in the lungs. Thom Kebede MD Abdomen/Pelvis CT 09/03/16 1059 Signed Impressions: Service Date/Time: Saturday, September 03, 2016 11:40 - CONCLUSION: 1. Cirrhosis of the liver, marked splenomegaly and esophageal varices. 2. Small amount of ascites within the abdomen. 3. Stable right upper pole renal cyst. 4. Degenerative changes, scoliosis and multiple compression deformities involving the lumbar spine. Alexandr Oakley MD Thoracic Spine MRI 09/03/16 0000 Signed Impressions: Service Date/Time: Saturday, September 03, 2016 17:59 - CONCLUSION: 1. Mild degenerative disc disease. No significant canal stenosis. Specifically no evidence for osteomyelitis. No cord impingement or cord edema. No abnormal enhancing lesions in the thoracic spine. Thom Kebede MD Lumbar Spine MRI 09/03/16 0000 Signed Impressions: Service Date/Time: Saturday, September 03, 2016 17:59 - CONCLUSION: 1. Negative for osteomyelitis. No abnormal enhancing lesion within the lumbar spine. 2. Remote mild compression deformities of L1 and L2. 3. Mild central canal stenosis at L2-3-4. Mild bilateral neural foraminal encroachment between L2 and L5 bilaterally. Thom Kebede MD Cervical Spine MRI 09/03/16 0000 Signed Impressions: Service Date/Time: Saturday, September 03, 2016 17:59 - CONCLUSION: 1. No evidence for osteomyelitis. No fracture or spondylolisthesis. 2. Broad-based disc protrusions at C3-4-5 resulting in mild cord compression. 3. Degenerative change at C5-6-7-T1 effacing the thecal sac around the cord. Thom Kebede MD Objective Remarks General: No acute distress. Deaf. HEENT: NC, AT. Heart: Bradycardic. Grade 3 systolic murmur appreciated. Lungs: Clear to auscultation bilaterally. No wheezes, rales, or rhonchi. Breathing is nonlabored. Abdomen: Soft, nontender, obese. BACK: Tenderness to palpation along thoracic and lumbar spine. Extremities: Trace to 1+ bilateral lower extremity edema with chronic venous stasis changes. Psych: Calm. Procedures None Medications and IVs Current Medications Medications (Trade) Dose Ordered Sig/Blaire Route Start Time Stop Time Status Last Admin (NS Flush) 2 ml UNSCH PRN FLUSH 09/03/16 23:45 (NS Flush) 2 ml BID FLUSH 09/04/16 09:00 09/07/16 09:00 (Narcan Inj) 0.4 mg UNSCH PRN IV 09/03/16 23:45 (D50w (Vial) Inj) 25 ml UNSCH PRN IV PUSH 09/04/16 00:15 Glucagon 1 mg 1 mg UNSCH PRN OTHER 09/04/16 00:15 (Rocephin Inj/NS Inj) 100 ml @ 200 mls/hr Q24H IV 09/04/16 08:00 09/08/16 08:52 (Morphine Inj) 4 mg Q4H PRN IV PUSH 09/04/16 02:00 09/06/16 04:55 (Percocet 10-325 Mg) 1 tab Q4H PRN PO 09/06/16 11:15 09/08/16 08:53 (Colace) 100 mg BID PO 09/07/16 21:00 09/08/16 08:53 (Senokot) 17.2 mg DAILY PO 09/07/16 16:00 09/08/16 08:53 (Flexeril) 5 mg Q8H PRN PO 09/07/16 16:00 (Pill Splitter) 1 ea UNSCH PRN OTHER 09/07/16 16:15 A/P Problem List: (1) Sepsis ICD Code: A41.9 Status: Acute (2) Cirrhosis ICD Code: K74.60 Status: Chronic (3) Left flank pain ICD Code: R10.9 Status: Acute (4) Cervical disc herniation ICD Code: M50.20 Status: Acute (5) Hyponatremia ICD Code: E87.1 Status: Acute (6) Bacteremia ICD Code: R78.81 Status: Acute (7) Elevated troponin I level ICD Code: R74.8 Status: Acute Assessment and Plan Sepsis/ bacteremia Ultrasound-guided paracentesis ordered but no window for paracentesis per US. Blood cultures growing viridans strep. ID consult appreciated. Concern for endocarditis. No evidence of endocarditis on TTE. - Continue Rocephin. - follow repeat blood cultures. NGTD. - JUANITA recommended. Follow up with cardiology. V tach/ sinus pauses Cardiology consult appreciated. V tach has improved but pt has frequent sinus pauses on telemetry. EP consulted but unable to place PPM in setting of bacteremia. - discontinue beta gabriella. - temporary pacing per cardiology if needed. - telemetry. - check electrolytes. - atropine if needed. Cirrhosis of the liver CT shows marked splenomegaly and esophageal varices. Also small amount of ascites within the abdomen. Appreciate GI recommendations. - GI signed off. Elevated troponin Appreciate cardiology recommendations. Patient has had prior cardiac catheterization and was found to have normal coronary arteries. Echo with normal EF. - continue medical management. Thrombocytopenia Chronic, secondary to cirrhosis. Plt count has been decreasing. - Monitor labs. C3 C4 C5 herniated disc With mild spinal cord compression. Appreciate neurosurgery recommendations. No surgical intervention planned at this time. Pt still with significant pain. - Continue pain control. - PT. - Flexeril and pain control as needed. DVT prophylaxis: SCDs. Chemical prophylaxis contraindicated. Discharge Planning Awaiting clinical improvement. Gualberto Weiss DO Sep 08, 2016 12:40
[2016-09-08 14:25] LABS: BICARBONATE 25.5 MEQ/L (21.0-32.0)
[2016-09-08 14:26] LABS: POTASSIUM 4.6 MEQ/L (3.5-5.1)
[2016-09-09] VITALS (24 sets, daily range): BP systolic 101–146; BP diastolic 56–92; PULSE 60–98; RESP 16–19; TEMP 98–98.6; O2SAT 92–98
[2016-09-09] MEDS: INSULIN ASPART SUPPLEMENTAL SCALE SQ SCH ×4 (06:05→23:03)
[2016-09-09 06:30] LABS: HEMATOCRIT 35.1 % (39.0-51.0); MEAN CELL VOLUME 99.1 FL (80.0-100.0); MEAN CORPUSCULAR HEMOGLOBIN 34.1 PG (27.0-34.0); MEAN CORPUSCULAR HGB CONC 34.4 % (32.0-36.0); PLATELET COUNT 36 TH/MM3 (150-450); RED BLOOD COUNT 3.55 MIL/MM3 (4.50-5.90); RED CELL DISTRIBUTION WIDTH 15.6 % (11.6-17.2); WHITE BLOOD COUNT 7.2 TH/MM3 (4.0-11.0)
[2016-09-09 06:35] LABS: REVIEW FLAG FINAL
[2016-09-09 06:42] LABS: BICARBONATE 26.2 MEQ/L (21.0-32.0); MAGNESIUM 1.9 MG/DL (1.5-2.5); POTASSIUM 4.3 MEQ/L (3.5-5.1)
[2016-09-09] MEDS: CYCLOBENZAPRINE HCL 10 MG TAB PO PRN (08:50)
[2016-09-09] MEDS: MORPHINE SULFATE 4 MG/ML INJ IV PUSH PRN ×3 (08:50→17:14)
[2016-09-09] MEDS: cefTRIAXone INJ 2,000 MG in SODIUM CHLORIDE 0.9% INJ 100 ML IV SCH (08:50)
[2016-09-09] MEDS: oxyCODONE/ACETAMINOPHEN 10 MG/325 MG TAB PO PRN ×3 (08:50→17:14)
[2016-09-09] MEDS: SENNOSIDES 8.6 MG TAB PO SCH (08:54)
[2016-09-09] MEDS: SODIUM CHLORIDE 0.9% FLUSH 5 ML FLUSH FLUSH SCH ×2 (08:54→23:04)
[2016-09-09] MEDS: DOCUSATE SODIUM 100 MG CAP PO SCH ×2 (08:54→23:03)
--- NOTE | 2016-09-09 09:41 | HHI.PR ---
Subjective Remarks The patient still complained of back pain but said the pain medications were working. He wants to go home soon. Discussed with nursing. Objective Vitals Vital Signs Date Time Temp Pulse Resp B/P Pulse Ox O2 Delivery O2 Flow Rate FiO2 09/09/16 09:00 16 09/09/16 06:26 98.0 79 17 118/92 98 09/09/16 05:00 60 09/09/16 04:00 60 09/09/16 03:00 60 09/09/16 02:00 68 09/09/16 01:00 78 09/09/16 00:00 68 09/08/16 23:15 98.0 62 17 107/62 98 09/08/16 23:00 66 09/08/16 22:00 66 09/08/16 21:00 62 09/08/16 20:00 84 09/08/16 19:15 98.0 68 17 101/51 98 09/08/16 19:00 56 09/08/16 16:00 62 09/08/16 15:00 56 09/08/16 14:00 64 09/08/16 13:32 97.9 66 17 133/78 96 09/08/16 13:00 56 09/08/16 12:00 50 09/08/16 11:00 54 09/08/16 10:00 54 I/O 09/08/16 09/08/16 09/08/16 09/09/16 09/09/16 09/09/16 07:00 15:00 23:00 07:00 15:00 23:00 Intake Total 480 ml Output Total 350 ml 200 ml 500 ml Balance 130 ml -200 ml -500 ml Intake Oral 480 ml Output Urine Total 350 ml 200 ml 500 ml # Voids 3 # Bowel Movements 1 Result Diagram: 09/09/16 0500 09/09/16 0500 Imaging Last Impressions Abdomen Ultrasound 09/04/16 0000 Signed Impressions: Service Date/Time: Sunday, September 04, 2016 08:46 - CONCLUSION: No clear window for paracentesis. Iain Villa MD CT Angiography 09/03/16 1535 Signed Impressions: Service Date/Time: Saturday, September 03, 2016 19:42 - CONCLUSION: 1. Negative for pulmonary embolus. 2. Mild atelectasis in the lungs. Thom Kebede MD Abdomen/Pelvis CT 09/03/16 1059 Signed Impressions: Service Date/Time: Saturday, September 03, 2016 11:40 - CONCLUSION: 1. Cirrhosis of the liver, marked splenomegaly and esophageal varices. 2. Small amount of ascites within the abdomen. 3. Stable right upper pole renal cyst. 4. Degenerative changes, scoliosis and multiple compression deformities involving the lumbar spine. Alexandr Oakley MD Thoracic Spine MRI 09/03/16 0000 Signed Impressions: Service Date/Time: Saturday, September 03, 2016 17:59 - CONCLUSION: 1. Mild degenerative disc disease. No significant canal stenosis. Specifically no evidence for osteomyelitis. No cord impingement or cord edema. No abnormal enhancing lesions in the thoracic spine. Thom Kebede MD Lumbar Spine MRI 09/03/16 0000 Signed Impressions: Service Date/Time: Saturday, September 03, 2016 17:59 - CONCLUSION: 1. Negative for osteomyelitis. No abnormal enhancing lesion within the lumbar spine. 2. Remote mild compression deformities of L1 and L2. 3. Mild central canal stenosis at L2-3-4. Mild bilateral neural foraminal encroachment between L2 and L5 bilaterally. Thom Kebede MD Cervical Spine MRI 09/03/16 0000 Signed Impressions: Service Date/Time: Saturday, September 03, 2016 17:59 - CONCLUSION: 1. No evidence for osteomyelitis. No fracture or spondylolisthesis. 2. Broad-based disc protrusions at C3-4-5 resulting in mild cord compression. 3. Degenerative change at C5-6-7-T1 effacing the thecal sac around the cord. Thom Kebede MD Objective Remarks General: No acute distress. Deaf. HEENT: NC, AT. Heart: Bradycardic. Grade 3 systolic murmur appreciated. Lungs: Clear to auscultation bilaterally. No wheezes, rales, or rhonchi. Breathing is nonlabored. Abdomen: Soft, nontender, obese. BACK: Tenderness to palpation along thoracic and lumbar spine. Extremities: Trace to 1+ bilateral lower extremity edema with chronic venous stasis changes. Psych: Calm. Procedures None Medications and IVs Current Medications Medications (Trade) Dose Ordered Sig/Blaire Route Start Time Stop Time Status Last Admin (NS Flush) 2 ml UNSCH PRN FLUSH 09/03/16 23:45 (NS Flush) 2 ml BID FLUSH 09/04/16 09:00 09/09/16 08:54 (Narcan Inj) 0.4 mg UNSCH PRN IV 09/03/16 23:45 (D50w (Vial) Inj) 25 ml UNSCH PRN IV PUSH 09/04/16 00:15 Glucagon 1 mg 1 mg UNSCH PRN OTHER 09/04/16 00:15 (Rocephin Inj/NS Inj) 100 ml @ 200 mls/hr Q24H IV 09/04/16 08:00 09/09/16 08:50 (Morphine Inj) 4 mg Q4H PRN IV PUSH 09/04/16 02:00 09/09/16 08:50 (Percocet 10-325 Mg) 1 tab Q4H PRN PO 09/06/16 11:15 09/09/16 08:50 (Colace) 100 mg BID PO 09/07/16 21:00 09/08/16 21:17 (Senokot) 17.2 mg DAILY PO 09/07/16 16:00 09/08/16 08:53 (Flexeril) 5 mg Q8H PRN PO 09/07/16 16:00 09/09/16 08:50 (Pill Splitter) 1 ea UNSCH PRN OTHER 09/07/16 16:15 A/P Problem List: (1) Sepsis ICD Code: A41.9 Status: Acute (2) Cirrhosis ICD Code: K74.60 Status: Chronic (3) Left flank pain ICD Code: R10.9 Status: Acute (4) Cervical disc herniation ICD Code: M50.20 Status: Acute (5) Hyponatremia ICD Code: E87.1 Status: Acute (6) Bacteremia ICD Code: R78.81 Status: Acute (7) Elevated troponin I level ICD Code: R74.8 Status: Acute Assessment and Plan Sepsis/ bacteremia Ultrasound-guided paracentesis ordered but no window for paracentesis per US. Blood cultures growing viridans strep. ID consult appreciated. Concern for endocarditis. No evidence of endocarditis on TTE. - Continue Rocephin. - follow repeat blood cultures. NGTD. - JUANITA recommended. Follow up with cardiology. V tach/ sinus pauses Cardiology consult appreciated. V tach has improved but pt has frequent sinus pauses on telemetry. EP consulted but unable to place PPM in setting of bacteremia. Patient still with small runs of V. tach 09/09. - discontinue beta gabriella. - temporary pacing per cardiology if needed. - telemetry. - check electrolytes. Stable. - atropine if needed. Cirrhosis of the liver CT shows marked splenomegaly and esophageal varices. Also small amount of ascites within the abdomen. Appreciate GI recommendations. - GI signed off. Elevated troponin Appreciate cardiology recommendations. Patient has had prior cardiac catheterization and was found to have normal coronary arteries. Echo with normal EF. - continue medical management. Thrombocytopenia Chronic, secondary to cirrhosis. Plt count has been decreasing. - Monitor labs. C3 C4 C5 herniated disc With mild spinal cord compression. Appreciate neurosurgery recommendations. No surgical intervention planned at this time. Pt still with significant pain. - Continue pain control. - PT. - Flexeril and pain control as needed. - Add gabapentin. DVT prophylaxis: SCDs. Chemical prophylaxis contraindicated. Discharge Planning Awaiting clinical improvement. Gualberto Weiss DO Sep 09, 2016 09:41
[2016-09-09] MEDS ORDERED: MAGNESIUM SULFATE 1 GM PREMIX 100 ML IV ONE (09:45)
[2016-09-09] MEDS: GABAPENTIN 100 MG CAP PO SCH ×2 (12:53→17:14)
[2016-09-10] VITALS (25 sets, daily range): BP systolic 108–130; BP diastolic 69–84; PULSE 69–101; RESP 16–20; TEMP 98–98.6; O2SAT 92–98
[2016-09-10] MEDS: MORPHINE SULFATE 4 MG/ML INJ IV PUSH PRN ×3 (06:55→22:56)
[2016-09-10] MEDS: INSULIN ASPART SUPPLEMENTAL SCALE SQ SCH ×4 (07:00→21:00)
[2016-09-10] MEDS: cefTRIAXone INJ 2,000 MG in SODIUM CHLORIDE 0.9% INJ 100 ML IV SCH (07:56)
[2016-09-10] MEDS: DOCUSATE SODIUM 100 MG CAP PO SCH ×2 (07:57→22:23)
[2016-09-10] MEDS: oxyCODONE/ACETAMINOPHEN 10 MG/325 MG TAB PO PRN ×2 (07:57→13:41)
[2016-09-10] MEDS: SODIUM CHLORIDE 0.9% FLUSH 5 ML FLUSH FLUSH SCH ×2 (07:57→21:00)
[2016-09-10] MEDS: GABAPENTIN 100 MG CAP PO SCH ×3 (07:57→17:18)
[2016-09-10] MEDS: CYCLOBENZAPRINE HCL 10 MG TAB PO PRN (07:57)
[2016-09-10] MEDS: SENNOSIDES 8.6 MG TAB PO SCH (07:57)
--- NOTE | 2016-09-10 11:41 | HHI.PR ---
Subjective Remarks The patient was resting in bed comfortably. He said his pain was improved. He was wondering if he should wear a patch or a brace. He said he wanted to go home so he can see his dog. No other acute complaints. Objective Vitals Vital Signs Date Time Temp Pulse Resp B/P Pulse Ox O2 Delivery O2 Flow Rate FiO2 09/10/16 11:00 82 09/10/16 10:00 84 09/10/16 09:00 82 09/10/16 09:00 16 09/10/16 08:00 77 09/10/16 08:00 98.1 75 16 124/79 95 09/10/16 07:17 16 09/10/16 07:00 84 09/10/16 06:00 82 09/10/16 05:00 76 09/10/16 04:00 98.0 80 16 130/84 98 09/10/16 04:00 69 09/10/16 03:00 76 09/10/16 02:00 74 09/10/16 01:00 78 09/10/16 00:00 79 09/10/16 00:00 98.3 101 16 115/77 94 09/09/16 23:00 74 09/09/16 22:00 80 09/09/16 21:00 78 09/09/16 20:00 98.3 98 16 146/67 97 09/09/16 20:00 82 09/09/16 19:00 82 09/09/16 18:00 72 09/09/16 17:00 72 09/09/16 16:00 98.6 64 16 101/63 96 09/09/16 16:00 60 09/09/16 15:00 66 09/09/16 14:00 68 09/09/16 13:00 64 09/09/16 12:00 98.1 67 19 122/58 92 09/09/16 12:00 66 I/O 09/09/16 09/09/16 09/09/16 09/10/16 09/10/16 09/10/16 07:00 15:00 23:00 07:00 15:00 23:00 Intake Total 730 ml 720 ml Output Total 500 ml 250 ml 1000 ml Balance -500 ml 480 ml -280 ml Intake Oral 480 ml 720 ml IV Total 250 ml Output Urine Total 500 ml 250 ml 1000 ml # Voids 3 # Bowel Movements 0 Result Diagram: 09/09/16 0500 09/09/16 0500 Imaging Last Impressions Abdomen Ultrasound 09/04/16 0000 Signed Impressions: Service Date/Time: Sunday, September 04, 2016 08:46 - CONCLUSION: No clear window for paracentesis. Iain Villa MD CT Angiography 09/03/16 1535 Signed Impressions: Service Date/Time: Saturday, September 03, 2016 19:42 - CONCLUSION: 1. Negative for pulmonary embolus. 2. Mild atelectasis in the lungs. Thom Kebede MD Abdomen/Pelvis CT 09/03/16 1059 Signed Impressions: Service Date/Time: Saturday, September 03, 2016 11:40 - CONCLUSION: 1. Cirrhosis of the liver, marked splenomegaly and esophageal varices. 2. Small amount of ascites within the abdomen. 3. Stable right upper pole renal cyst. 4. Degenerative changes, scoliosis and multiple compression deformities involving the lumbar spine. Alexandr Oakley MD Thoracic Spine MRI 09/03/16 0000 Signed Impressions: Service Date/Time: Saturday, September 03, 2016 17:59 - CONCLUSION: 1. Mild degenerative disc disease. No significant canal stenosis. Specifically no evidence for osteomyelitis. No cord impingement or cord edema. No abnormal enhancing lesions in the thoracic spine. Thom Kebede MD Lumbar Spine MRI 09/03/16 0000 Signed Impressions: Service Date/Time: Saturday, September 03, 2016 17:59 - CONCLUSION: 1. Negative for osteomyelitis. No abnormal enhancing lesion within the lumbar spine. 2. Remote mild compression deformities of L1 and L2. 3. Mild central canal stenosis at L2-3-4. Mild bilateral neural foraminal encroachment between L2 and L5 bilaterally. Thom Kebede MD Cervical Spine MRI 09/03/16 0000 Signed Impressions: Service Date/Time: Saturday, September 03, 2016 17:59 - CONCLUSION: 1. No evidence for osteomyelitis. No fracture or spondylolisthesis. 2. Broad-based disc protrusions at C3-4-5 resulting in mild cord compression. 3. Degenerative change at C5-6-7-T1 effacing the thecal sac around the cord. Thom Kebede MD Objective Remarks General: No acute distress. Deaf. HEENT: NC, AT. Heart: Bradycardic. Grade 2 systolic murmur appreciated. Lungs: Clear to auscultation bilaterally. No wheezes, rales, or rhonchi. Breathing is nonlabored. Abdomen: Soft, nontender, obese. BACK: Tenderness to palpation along thoracic and lumbar spine. Extremities: Trace to 1+ bilateral lower extremity edema with chronic venous stasis changes. Psych: Calm. Procedures None Medications and IVs Current Medications Medications (Trade) Dose Ordered Sig/Blaire Route Start Time Stop Time Status Last Admin (NS Flush) 2 ml UNSCH PRN FLUSH 09/03/16 23:45 (NS Flush) 2 ml BID FLUSH 09/04/16 09:00 09/10/16 07:57 (Narcan Inj) 0.4 mg UNSCH PRN IV 09/03/16 23:45 (D50w (Vial) Inj) 25 ml UNSCH PRN IV PUSH 09/04/16 00:15 Glucagon 1 mg 1 mg UNSCH PRN OTHER 09/04/16 00:15 (Rocephin Inj/NS Inj) 100 ml @ 200 mls/hr Q24H IV 09/04/16 08:00 09/10/16 07:56 (Morphine Inj) 4 mg Q4H PRN IV PUSH 09/04/16 02:00 09/10/16 06:55 (Percocet 10-325 Mg) 1 tab Q4H PRN PO 09/06/16 11:15 09/10/16 07:57 (Colace) 100 mg BID PO 09/07/16 21:00 09/10/16 07:57 (Senokot) 17.2 mg DAILY PO 09/07/16 16:00 09/08/16 08:53 (Flexeril) 5 mg Q8H PRN PO 09/07/16 16:00 09/10/16 07:57 (Pill Splitter) 1 ea UNSCH PRN OTHER 09/07/16 16:15 (Neurontin) 200 mg TID PO 09/09/16 13:00 09/10/16 07:57 A/P Problem List: (1) Sepsis ICD Code: A41.9 Status: Acute (2) Cirrhosis ICD Code: K74.60 Status: Chronic (3) Left flank pain ICD Code: R10.9 Status: Acute (4) Cervical disc herniation ICD Code: M50.20 Status: Acute (5) Hyponatremia ICD Code: E87.1 Status: Acute (6) Bacteremia ICD Code: R78.81 Status: Acute (7) Elevated troponin I level ICD Code: R74.8 Status: Acute Assessment and Plan Sepsis/ bacteremia Ultrasound-guided paracentesis ordered but no window for paracentesis per US. Blood cultures growing viridans strep. ID consult appreciated. Concern for endocarditis. No evidence of endocarditis on TTE. - Continue Rocephin. - follow repeat blood cultures. NGTD. - JUANITA recommended. Follow up with cardiology. Consult placed 09/10. V tach/ sinus pauses Cardiology consult appreciated. V tach has improved but pt has frequent sinus pauses on telemetry. EP consulted but unable to place PPM in setting of bacteremia. Patient still with small runs of V. tach 09/10. Improved. - discontinue beta gabriella. - temporary pacing per cardiology if needed. - telemetry. - check electrolytes. Stable. - atropine if needed. Cirrhosis of the liver CT shows marked splenomegaly and esophageal varices. Also small amount of ascites within the abdomen. Appreciate GI recommendations. - GI signed off. Elevated troponin Appreciate cardiology recommendations. Patient has had prior cardiac catheterization and was found to have normal coronary arteries. Echo with normal EF. - continue medical management. Thrombocytopenia Chronic, secondary to cirrhosis. Plt count has been decreasing. - Monitor labs. C3 C4 C5 herniated disc With mild spinal cord compression. Appreciate neurosurgery recommendations. No surgical intervention planned at this time. Pt still with significant pain. - Continue pain control. - PT. - Flexeril and pain control as needed. - Added gabapentin. DVT prophylaxis: SCDs. Chemical prophylaxis contraindicated. Discharge Planning Awaiting clinical improvement. Gualberto Weiss DO Sep 10, 2016 11:41
[2016-09-10 11:53] LABS: HEMATOCRIT 37.9 % (39.0-51.0); MEAN CELL VOLUME 100.5 FL (80.0-100.0); MEAN CORPUSCULAR HEMOGLOBIN 33.7 PG (27.0-34.0); MEAN CORPUSCULAR HGB CONC 33.5 % (32.0-36.0); PLATELET COUNT 34 TH/MM3 (150-450); RED BLOOD COUNT 3.77 MIL/MM3 (4.50-5.90); RED CELL DISTRIBUTION WIDTH 15.9 % (11.6-17.2); WHITE BLOOD COUNT 8.2 TH/MM3 (4.0-11.0)
--- NOTE | 2016-09-10 17:40 | PD.CARD.PN ---
Subjective Subjective Remarks Asked to see [place] in consideration of JUANITA No chest pain, no shortness of breath, no fevers/chills Assurance Senior used to help with communication to the patient Objective Medications Current Medications Medications (Trade) Dose Ordered Sig/Blaire Route Start Time Stop Time Status Last Admin (NS Flush) 2 ml UNSCH PRN FLUSH 09/03/16 23:45 (NS Flush) 2 ml BID FLUSH 09/04/16 09:00 09/10/16 07:57 (Narcan Inj) 0.4 mg UNSCH PRN IV 09/03/16 23:45 (D50w (Vial) Inj) 25 ml UNSCH PRN IV PUSH 09/04/16 00:15 Glucagon 1 mg 1 mg UNSCH PRN OTHER 09/04/16 00:15 (Rocephin Inj/NS Inj) 100 ml @ 200 mls/hr Q24H IV 09/04/16 08:00 09/10/16 07:56 (Morphine Inj) 4 mg Q4H PRN IV PUSH 09/04/16 02:00 09/10/16 13:42 (Percocet 10-325 Mg) 1 tab Q4H PRN PO 09/06/16 11:15 09/10/16 13:41 (Colace) 100 mg BID PO 09/07/16 21:00 09/10/16 07:57 (Senokot) 17.2 mg DAILY PO 09/07/16 16:00 09/08/16 08:53 (Flexeril) 5 mg Q8H PRN PO 09/07/16 16:00 09/10/16 07:57 (Pill Splitter) 1 ea UNSCH PRN OTHER 09/07/16 16:15 (Neurontin) 200 mg TID PO 09/09/16 13:00 09/10/16 17:18 Vital Signs / I&O Vital Signs Date Time Temp Pulse Resp B/P Pulse Ox O2 Delivery O2 Flow Rate FiO2 09/10/16 16:00 98.4 97 16 126/80 95 09/10/16 15:12 91 09/10/16 15:00 78 09/10/16 14:46 18 09/10/16 14:00 80 09/10/16 13:50 16 09/10/16 13:00 84 09/10/16 12:00 86 09/10/16 12:00 98.6 88 16 114/69 92 09/10/16 11:00 82 09/10/16 10:00 84 09/10/16 09:00 82 09/10/16 08:00 77 09/10/16 08:00 98.1 75 16 124/79 95 09/10/16 07:00 84 09/10/16 06:00 82 09/10/16 05:00 76 09/10/16 04:00 98.0 80 16 130/84 98 09/10/16 04:00 69 09/10/16 03:00 76 09/10/16 02:00 74 09/10/16 01:00 78 09/10/16 00:00 79 09/10/16 00:00 98.3 101 16 115/77 94 09/09/16 23:00 74 09/09/16 22:00 80 09/09/16 21:00 78 09/09/16 20:00 98.3 98 16 146/67 97 09/09/16 20:00 82 09/09/16 19:00 82 09/09/16 18:00 72 I/O 09/09/16 09/09/16 09/09/16 09/10/16 09/10/16 09/10/16 07:00 15:00 23:00 07:00 15:00 23:00 Intake Total 730 ml 720 ml 755 ml Output Total 500 ml 250 ml 1000 ml 775 ml Balance -500 ml 480 ml -280 ml -20 ml Intake Oral 480 ml 720 ml 620 ml IV Total 250 ml 135 ml Output Urine Total 500 ml 250 ml 1000 ml 775 ml # Voids 3 # Bowel Movements 0 0 Physical Exam GENERAL: NAD SKIN: Warm and dry. HEAD: Atraumatic. Normocephalic. EYES: Pupils equal and round. No scleral icterus. No injection or drainage. ENT: No nasal bleeding or discharge. Mucous membranes pink and moist. NECK: Trachea midline. No JVD. CARDIOVASCULAR: Irregularly irregular RESPIRATORY: No accessory muscle use. Decreased breath sounds bilaterally GASTROINTESTINAL: Abdomen soft, non-tender, nondistended. Hepatic and splenic margins not palpable. MUSCULOSKELETAL: Extremities without clubbing, cyanosis, or edema. No obvious deformities. NEUROLOGICAL: Awake and alert. No obvious cranial nerve deficits. Motor grossly within normal limits. Five out of 5 muscle strength in the arms and legs. Normal speech. PSYCHIATRIC: Appropriate mood and affect; insight and judgment normal. Laboratory Laboratory Tests Test 09/10/16 06:50 White Blood Count 8.2 TH/MM3 Red Blood Count 3.77 MIL/MM3 Hemoglobin 12.7 GM/DL Hematocrit 37.9 % Mean Corpuscular Volume 100.5 FL Mean Corpuscular Hemoglobin 33.7 PG Mean Corpuscular Hemoglobin 33.5 % Concent Red Cell Distribution Width 15.9 % Platelet Count 34 TH/MM3 Mean Platelet Volume 8.6 FL Assessment and Plan Problem List: (1) NSVT (nonsustained ventricular tachycardia) (2) Troponin level elevated (3) Atrial fibrillation (4) S/P TAVR (transcatheter aortic valve replacement) (5) Elevated troponin I level (6) Bacteremia Assessment and Plan 1) Consideration of JUANITA due to bacteremia, pauses, and NSVT 2) No real pauses noted since stopping Lopressor 3) NSVT will be treated conservatively per Dr. Vuong's note 4) As far as bacteremia, blood cultures cleared quickly, if concern for abscess causing pauses blood cultures should stay positive much longer 5) Other concern is with his Cirrhosis and thrombocytopenia, he is high risk for JUANITA.... If endocarditis/abscess is found, he would not be a surgical candidate due to comorbidities, just as he previously underwent TAVR over AVR. So I don't think it would be prudent to undergo a higher risk JUANITA for no change in management 6) Discussed with Dr. Weiss who agrees 7) Will see PRN, call with questions Problem Qualifiers (1) Atrial fibrillation: Qualified Code: I48.2 - Chronic atrial fibrillation Bradly Hoffman DO Sep 10, 2016 17:40
[2016-09-11] VITALS (24 sets, daily range): BP systolic 107–143; BP diastolic 69–95; PULSE 76–104; RESP 16–20; TEMP 98–99; O2SAT 92–96
[2016-09-11] MEDS: oxyCODONE/ACETAMINOPHEN 10 MG/325 MG TAB PO PRN ×3 (01:44→16:39)
[2016-09-11] MEDS: INSULIN ASPART SUPPLEMENTAL SCALE SQ SCH ×4 (06:51→21:00)
[2016-09-11 07:54] LABS: MEAN CELL VOLUME 99.5 FL (80.0-100.0); MEAN CORPUSCULAR HEMOGLOBIN 33.4 PG (27.0-34.0); MEAN CORPUSCULAR HGB CONC 33.5 % (32.0-36.0); PLATELET COUNT 29 TH/MM3 (150-450); RED BLOOD COUNT 3.22 MIL/MM3 (4.50-5.90); RED CELL DISTRIBUTION WIDTH 15.7 % (11.6-17.2); WHITE BLOOD COUNT 7.1 TH/MM3 (4.0-11.0)
[2016-09-11 08:02] LABS: REVIEW FLAG FINAL
--- NOTE | 2016-09-11 09:41 | HHI.PR ---
Subjective Remarks pt was sleeping , woke up to sternal rubs , denied cp but c/o back pain oriented to his name , month Objective Vitals Vital Signs Date Time Temp Pulse Resp B/P Pulse Ox O2 Delivery O2 Flow Rate FiO2 09/11/16 07:00 86 09/11/16 07:00 98.3 80 18 120/89 94 09/11/16 06:00 78 09/11/16 05:00 104 09/11/16 04:00 82 09/11/16 04:00 99.0 86 16 107/69 92 09/11/16 03:00 85 09/11/16 02:00 84 09/11/16 01:00 76 09/11/16 00:00 78 09/11/16 00:00 98.9 88 20 117/75 93 09/10/16 23:00 77 09/10/16 22:00 78 09/10/16 21:00 80 09/10/16 20:00 98.2 82 20 108/83 94 09/10/16 19:00 89 09/10/16 18:00 84 09/10/16 17:00 86 09/10/16 16:00 98.4 97 16 126/80 95 09/10/16 15:12 91 09/10/16 15:00 78 09/10/16 14:46 18 09/10/16 14:00 80 09/10/16 13:50 16 09/10/16 13:00 84 09/10/16 12:00 86 09/10/16 12:00 98.6 88 16 114/69 92 09/10/16 11:00 82 09/10/16 10:00 84 I/O 09/10/16 09/10/16 09/10/16 09/11/16 09/11/16 09/11/16 07:00 15:00 23:00 07:00 15:00 23:00 Intake Total 720 ml 755 ml 360 ml Output Total 1000 ml 775 ml 300 ml Balance -280 ml -20 ml 60 ml Intake Oral 720 ml 620 ml 360 ml IV Total 135 ml Output Urine Total 1000 ml 775 ml 300 ml # Bowel Movements 0 Result Diagram: 09/11/16 0611 09/09/16 0500 Objective Remarks General: laying in bed No acute distress. Deaf. HEENT: atromatic, normocetic Heart: irregular irregular . Grade 2/6 systolic murmur appreciated. Lungs:TYLER. No wheezes, rales, or rhonchi. Breathing is nonlabored. Abdomen: Soft, nontender, obese. BACK: Tenderness to palpation along thoracic and lumbar spine. Extremities: Trace to 1+ bilateral lower extremity edema with chronic venous stasis changes. Procedures None A/P Problem List: (1) Sepsis ICD Code: A41.9 Status: Acute (2) Cirrhosis ICD Code: K74.60 Status: Chronic (3) Left flank pain ICD Code: R10.9 Status: Acute (4) Cervical disc herniation ICD Code: M50.20 Status: Acute (5) Hyponatremia ICD Code: E87.1 Status: Acute (6) Bacteremia ICD Code: R78.81 Status: Acute (7) Elevated troponin I level ICD Code: R74.8 Status: Acute Assessment and Plan 09/11: no f/c , continue current care , lasix on hold , low bp , cbc in am Detail Discussion with ID and cardiology regarding JUANITA indication today Time spent 45 minutes A/P: Sepsis/ bacteremia Ultrasound-guided paracentesis ordered but no window for paracentesis per US. Blood cultures growing viridans strep. ID consult appreciated. Concern for endocarditis. No evidence of endocarditis on TTE. - Continue Rocephin. - follow repeat blood cultures. NGTD. - JUANITA recommended. Cardiology didn't recommend JUANITA since the one change in management regarding surgery however, I discussed with Dr. Wadsworth infectious specialist who explained to me that she is needed to decide on endocarditis in a patient who has unexplained bacteremia with murmur and needs clearance by ID for pacemaker insertion, I placed a call for cardiology to discuss this with him. Dr. Hoffman graciously returned my call he still does not favor JUANITA since it's high risk, he actually may even recommend against pacemaker, he stated he will discuss with Dr. Wadsworth infectious disease tomorrow V tach/ sinus pauses Cardiology consult appreciated. V tach has improved but pt has frequent sinus pauses on telemetry. EP consulted but unable to place PPM in setting of bacteremia. Patient still with small runs of V. tach 09/10. Improved. - discontinue beta gabriella. - temporary pacing per cardiology if needed. - telemetry. - check electrolytes. Stable. - atropine if needed. Cirrhosis of the liver CT shows marked splenomegaly and esophageal varices. Also small amount of ascites within the abdomen. Appreciate GI recommendations. - GI signed off. Elevated troponin Appreciate cardiology recommendations. Patient has had prior cardiac catheterization and was found to have normal coronary arteries. Echo with normal EF. - continue medical management. - Home Lasix and amlodipine on hold (mostly due to low blood pressure) Thrombocytopenia Chronic, secondary to cirrhosis. Plt count has been decreasing. - Monitor labs. C3 C4 C5 herniated disc With mild spinal cord compression. Appreciate neurosurgery recommendations. No surgical intervention planned at this time. Pt still with significant pain. - Continue pain control. - PT. - Flexeril and pain control as needed. - Added gabapentin. DVT prophylaxis: SCDs. Chemical prophylaxis contraindicated. Radha Baxter MD Sep 11, 2016 09:41
[2016-09-11] MEDS: SENNOSIDES 8.6 MG TAB PO SCH (09:44)
[2016-09-11] MEDS: GABAPENTIN 100 MG CAP PO SCH ×3 (09:44→18:08)
[2016-09-11] MEDS: cefTRIAXone INJ 2,000 MG in SODIUM CHLORIDE 0.9% INJ 100 ML IV SCH (09:45)
[2016-09-11] MEDS: SODIUM CHLORIDE 0.9% FLUSH 5 ML FLUSH FLUSH SCH ×2 (09:45→21:01)
[2016-09-11] MEDS: DOCUSATE SODIUM 100 MG CAP PO SCH ×2 (09:45→21:01)
--- NOTE | 2016-09-11 10:25 | PD.CARD.PN ---
Subjective Subjective Remarks No further pauses noted, one short run of NSVT over night Objective Medications Current Medications Medications (Trade) Dose Ordered Sig/Blaire Route Start Time Stop Time Status Last Admin (NS Flush) 2 ml UNSCH PRN FLUSH 09/03/16 23:45 (NS Flush) 2 ml BID FLUSH 09/04/16 09:00 09/11/16 09:45 (Narcan Inj) 0.4 mg UNSCH PRN IV 09/03/16 23:45 (D50w (Vial) Inj) 25 ml UNSCH PRN IV PUSH 09/04/16 00:15 Glucagon 1 mg 1 mg UNSCH PRN OTHER 09/04/16 00:15 (Rocephin Inj/NS Inj) 100 ml @ 200 mls/hr Q24H IV 09/04/16 08:00 09/11/16 09:45 (Morphine Inj) 4 mg Q4H PRN IV PUSH 09/04/16 02:00 09/10/16 22:56 (Percocet 10-325 Mg) 1 tab Q4H PRN PO 09/06/16 11:15 09/11/16 09:45 (Colace) 100 mg BID PO 09/07/16 21:00 09/11/16 09:45 (Senokot) 17.2 mg DAILY PO 09/07/16 16:00 09/11/16 09:44 (Flexeril) 5 mg Q8H PRN PO 09/07/16 16:00 09/10/16 07:57 (Pill Splitter) 1 ea UNSCH PRN OTHER 09/07/16 16:15 (Neurontin) 200 mg TID PO 09/09/16 13:00 09/11/16 09:44 Vital Signs / I&O Vital Signs Date Time Temp Pulse Resp B/P Pulse Ox O2 Delivery O2 Flow Rate FiO2 09/11/16 07:00 86 09/11/16 07:00 98.3 80 18 120/89 94 09/11/16 06:00 78 09/11/16 05:00 104 09/11/16 04:00 82 09/11/16 04:00 99.0 86 16 107/69 92 09/11/16 03:00 85 09/11/16 02:00 84 09/11/16 01:00 76 09/11/16 00:00 78 09/11/16 00:00 98.9 88 20 117/75 93 09/10/16 23:00 77 09/10/16 22:00 78 09/10/16 21:00 80 09/10/16 20:00 98.2 82 20 108/83 94 09/10/16 19:00 89 09/10/16 18:00 84 09/10/16 17:00 86 09/10/16 16:00 98.4 97 16 126/80 95 09/10/16 15:12 91 09/10/16 15:00 78 09/10/16 14:46 18 09/10/16 14:00 80 09/10/16 13:50 16 09/10/16 13:00 84 09/10/16 12:00 86 09/10/16 12:00 98.6 88 16 114/69 92 09/10/16 11:00 82 I/O 09/10/16 09/10/16 09/10/16 09/11/16 09/11/16 09/11/16 07:00 15:00 23:00 07:00 15:00 23:00 Intake Total 720 ml 755 ml 360 ml 442 ml Output Total 1000 ml 775 ml 300 ml Balance -280 ml -20 ml 60 ml 442 ml Intake Oral 720 ml 620 ml 360 ml 442 ml IV Total 135 ml Output Urine Total 1000 ml 775 ml 300 ml # Bowel Movements 0 Physical Exam GENERAL: NAD SKIN: Warm and dry. HEAD: Atraumatic. Normocephalic. EYES: Pupils equal and round. No scleral icterus. No injection or drainage. ENT: No nasal bleeding or discharge. Mucous membranes pink and moist. NECK: Trachea midline. No JVD. CARDIOVASCULAR: Irregularly irregular RESPIRATORY: No accessory muscle use. Decreased breath sounds bilaterally GASTROINTESTINAL: Abdomen soft, non-tender, nondistended. Hepatic and splenic margins not palpable. MUSCULOSKELETAL: Extremities without clubbing, cyanosis, or edema. No obvious deformities. NEUROLOGICAL: Awake and alert. No obvious cranial nerve deficits. Motor grossly within normal limits. Five out of 5 muscle strength in the arms and legs. Normal speech. PSYCHIATRIC: Appropriate mood and affect; insight and judgment normal. Laboratory Laboratory Tests Test 09/11/16 06:11 White Blood Count 7.1 TH/MM3 Red Blood Count 3.22 MIL/MM3 Hemoglobin 10.7 GM/DL Hematocrit 32.0 % Mean Corpuscular Volume 99.5 FL Mean Corpuscular Hemoglobin 33.4 PG Mean Corpuscular Hemoglobin 33.5 % Concent Red Cell Distribution Width 15.7 % Platelet Count 29 TH/MM3 Mean Platelet Volume 8.5 FL Assessment and Plan Problem List: (1) NSVT (nonsustained ventricular tachycardia) (2) Troponin level elevated (3) Atrial fibrillation (4) S/P TAVR (transcatheter aortic valve replacement) (5) Elevated troponin I level (6) Bacteremia Assessment and Plan 1) Consideration of JUANITA due to bacteremia, pauses, and NSVT 2) No real pauses noted since stopping Lopressor 3) NSVT will be treated conservatively per Dr. Vuong's note 4) As far as bacteremia, blood cultures cleared quickly, if concern for abscess causing pauses blood cultures should stay positive much longer 5) Other concern is with his Cirrhosis and thrombocytopenia with esophageal varices, he is high risk for JUANITA.... If endocarditis/abscess is found, he would not be a surgical candidate due to comorbidities, just as he previously underwent TAVR over AVR. So I don't think it would be prudent to undergo a higher risk JUANITA for no change in management 6) Discussed with Dr. Weiss who agrees 7) Will see PRN, call with questions Problem Qualifiers (1) Atrial fibrillation: Qualified Code: I48.2 - Chronic atrial fibrillation Bradly Hoffman DO Sep 11, 2016 10:25
[2016-09-11] MEDS: MORPHINE SULFATE 4 MG/ML INJ IV PUSH PRN (21:01)
[2016-09-12] VITALS (24 sets, daily range): BP systolic 114–148; BP diastolic 69–91; PULSE 74–106; RESP 14–20; TEMP 97–99.5; O2SAT 92–96
[2016-09-12] MEDS: MORPHINE SULFATE 4 MG/ML INJ IV PUSH PRN ×3 (00:59→20:49)
[2016-09-12] MEDS: oxyCODONE/ACETAMINOPHEN 10 MG/325 MG TAB PO PRN ×2 (01:28→17:27)
[2016-09-12] MEDS: INSULIN ASPART SUPPLEMENTAL SCALE SQ SCH ×4 (07:00→21:00)
[2016-09-12 07:10] LABS: BASOPHIL % 0.1 % (0.0-2.0); EOSINOPHIL % 0.3 % (0.0-4.0); HEMATOCRIT 32.7 % (39.0-51.0); LYMPH % 7.4 % (9.0-44.0); LYMPHOCYTE # 0.6 TH/MM3 (1.0-4.8); MEAN CELL VOLUME 99.2 FL (80.0-100.0); MEAN CORPUSCULAR HEMOGLOBIN 33.4 PG (27.0-34.0); MEAN CORPUSCULAR HGB CONC 33.7 % (32.0-36.0); MONO % 7.3 % (0.0-8.0); NEUT % 84.9 % (16.0-70.0); PLATELET COUNT 32 TH/MM3 (150-450); RED BLOOD COUNT 3.29 MIL/MM3 (4.50-5.90); RED CELL DISTRIBUTION WIDTH 15.8 % (11.6-17.2); WHITE BLOOD COUNT 8.3 TH/MM3 (4.0-11.0)
[2016-09-12 07:12] LABS: HEMO FLAGS AUTO DIFF
[2016-09-12 08:33] LABS: BANDS 8 % (0-6); NEUTROPHIL # MANUAL DIFF 7.4 TH/MM3 (1.8-7.7); POLYS (SEG NEUTROPHILS) 81 % (16-70); WBC DIFF SAMPLE 100
[2016-09-12 08:35] LABS: PLATELET ESTIMATE SMEAR LOW (NORMAL); PLATELET MORPHOLOGY NORMAL (NORMAL); SCAN/DIFF FINAL DIFF MANUAL
--- NOTE | 2016-09-12 09:07 | PD.CARD.PN ---
Subjective Subjective Remarks No events over night, no episodes of bradycardia/NSVT Objective Medications Current Medications Medications (Trade) Dose Ordered Sig/Blaire Route Start Time Stop Time Status Last Admin (NS Flush) 2 ml UNSCH PRN FLUSH 09/03/16 23:45 (NS Flush) 2 ml BID FLUSH 09/04/16 09:00 09/11/16 21:01 (Narcan Inj) 0.4 mg UNSCH PRN IV 09/03/16 23:45 (D50w (Vial) Inj) 25 ml UNSCH PRN IV PUSH 09/04/16 00:15 Glucagon 1 mg 1 mg UNSCH PRN OTHER 09/04/16 00:15 (Rocephin Inj/NS Inj) 100 ml @ 200 mls/hr Q24H IV 09/04/16 08:00 09/11/16 09:45 (Morphine Inj) 4 mg Q4H PRN IV PUSH 09/04/16 02:00 09/12/16 06:14 (Percocet 10-325 Mg) 1 tab Q4H PRN PO 09/06/16 11:15 09/12/16 01:28 (Colace) 100 mg BID PO 09/07/16 21:00 09/11/16 21:01 (Senokot) 17.2 mg DAILY PO 09/07/16 16:00 09/11/16 09:44 (Flexeril) 5 mg Q8H PRN PO 09/07/16 16:00 09/10/16 07:57 (Pill Splitter) 1 ea UNSCH PRN OTHER 09/07/16 16:15 (Neurontin) 200 mg TID PO 09/09/16 13:00 09/11/16 18:08 Vital Signs / I&O Vital Signs Date Time Temp Pulse Resp B/P Pulse Ox O2 Delivery O2 Flow Rate FiO2 09/12/16 07:00 99.5 87 18 146/86 92 09/12/16 07:00 93 09/12/16 06:00 88 09/12/16 05:00 80 09/12/16 04:00 84 09/12/16 03:00 82 09/12/16 03:00 97.0 83 20 118/84 96 09/12/16 02:00 74 09/12/16 01:00 80 2/19/17 00:00 76 09/11/16 23:00 76 09/11/16 23:00 98.0 88 18 131/87 96 09/11/16 22:00 80 09/11/16 21:00 82 09/11/16 20:00 82 09/11/16 19:00 98.9 81 18 143/95 94 09/11/16 19:00 80 09/11/16 18:09 18 09/11/16 18:00 76 09/11/16 17:00 80 09/11/16 16:00 78 09/11/16 15:00 98.4 80 18 127/84 96 09/11/16 15:00 80 09/11/16 14:00 82 09/11/16 13:00 82 09/11/16 12:00 82 09/11/16 11:00 98.4 90 18 127/76 95 09/11/16 11:00 76 09/11/16 10:00 90 09/11/16 09:00 78 I/O 09/11/16 09/11/16 09/11/16 09/12/16 09/12/16 09/12/16 07:00 15:00 23:00 07:00 15:00 23:00 Intake Total 360 ml 442 ml 820 ml 480 ml Output Total 300 ml 600 ml 950 ml Balance 60 ml 442 ml 220 ml -470 ml Intake Oral 360 ml 442 ml 720 ml 480 ml IV Total 100 ml Output Urine Total 300 ml 600 ml 950 ml # Bowel Movements 0 Physical Exam GENERAL: NAD SKIN: Warm and dry. HEAD: Atraumatic. Normocephalic. EYES: Pupils equal and round. No scleral icterus. No injection or drainage. ENT: No nasal bleeding or discharge. Mucous membranes pink and moist. NECK: Trachea midline. No JVD. CARDIOVASCULAR: Irregularly irregular, 2-3/6 crescendo decrescendo to RSB RESPIRATORY: No accessory muscle use. Decreased breath sounds bilaterally GASTROINTESTINAL: Abdomen soft, non-tender, nondistended. Hepatic and splenic margins not palpable. MUSCULOSKELETAL: Extremities without clubbing, cyanosis, or edema. No obvious deformities. NEUROLOGICAL: Awake and alert. No obvious cranial nerve deficits. Motor grossly within normal limits. Five out of 5 muscle strength in the arms and legs. Normal speech. PSYCHIATRIC: Appropriate mood and affect; insight and judgment normal. Laboratory Laboratory Tests Test 2/19/17 05:57 White Blood Count 8.3 TH/MM3 Red Blood Count 3.29 MIL/MM3 Hemoglobin 11.0 GM/DL Hematocrit 32.7 % Mean Corpuscular Volume 99.2 FL Mean Corpuscular Hemoglobin 33.4 PG Mean Corpuscular Hemoglobin 33.7 % Concent Red Cell Distribution Width 15.8 % Platelet Count 32 TH/MM3 Mean Platelet Volume 8.4 FL Neutrophils (%) (Auto) 84.9 % Lymphocytes (%) (Auto) 7.4 % Monocytes (%) (Auto) 7.3 % Eosinophils (%) (Auto) 0.3 % Basophils (%) (Auto) 0.1 % Neutrophils # (Auto) 7.0 TH/MM3 Lymphocytes # (Auto) 0.6 TH/MM3 Monocytes # (Auto) 0.6 TH/MM3 Eosinophils # (Auto) 0.0 TH/MM3 Basophils # (Auto) 0.0 TH/MM3 CBC Comment AUTO DIFF Differential Total Cells 100 Counted Neutrophils % (Manual) 81 % Band Neutrophils % 8 % Lymphocytes % 6 % Monocytes % 5 % Neutrophils # (Manual) 7.4 TH/MM3 Differential Comment FINAL DIFF MANUAL Platelet Estimate LOW Platelet Morphology Comment NORMAL Assessment and Plan Problem List: (1) NSVT (nonsustained ventricular tachycardia) (2) Troponin level elevated (3) Atrial fibrillation (4) S/P TAVR (transcatheter aortic valve replacement) (5) Elevated troponin I level (6) Bacteremia Assessment and Plan 1) Asked to see [place] for consideration of JUANITA for possible PPM or ICD placement 2) No recent pauses since stopping Lopressor, longest noted was just over 3 seconds which is not an indication in Afib for PPM 3) No recent NSVT, longest I've seen is 3-4 beats, will attempt to look back through possible telemetry history on the other floors 4) As far as bacteremia, blood cultures cleared quickly, if concern for abscess causing pauses blood cultures should stay positive much longer 5) Other concern is with his Cirrhosis and thrombocytopenia with esophageal varices, he is high risk for JUANITA... It sounds like if endocarditis was not found then he would be able to undergo EPS and possible ICD, which I'm unsure if this is necessary as NSVT have been minimal, he's asymptomatic and normal EF 6) Will further discuss with Dr. Vuong and Dr. Wadsworth Problem Qualifiers (1) Atrial fibrillation: Qualified Code: I48.2 - Chronic atrial fibrillation Bradly Hoffman DO Sep 12, 2016 09:07
[2016-09-12] MEDS: cefTRIAXone INJ 2,000 MG in SODIUM CHLORIDE 0.9% INJ 100 ML IV SCH (09:46)
[2016-09-12] MEDS: GABAPENTIN 100 MG CAP PO SCH ×3 (09:47→17:27)
[2016-09-12] MEDS: DOCUSATE SODIUM 100 MG CAP PO SCH ×2 (09:47→20:42)
[2016-09-12] MEDS: SENNOSIDES 8.6 MG TAB PO SCH (09:47)
[2016-09-12] MEDS: SODIUM CHLORIDE 0.9% FLUSH 5 ML FLUSH FLUSH SCH ×2 (09:47→20:42)
--- NOTE | 2016-09-12 12:21 | HHI.PR ---
Subjective Remarks Patient resting sleeping comfortably in bed, woke up to tactile stimuli, denied complaints, were following up on bacteremia ruling out endocarditis in a patient who may need pacer/ICD Objective Vitals Vital Signs Date Time Temp Pulse Resp B/P Pulse Ox O2 Delivery O2 Flow Rate FiO2 09/12/16 07:00 99.5 87 18 146/86 92 09/12/16 07:00 93 09/12/16 06:00 88 09/12/16 05:00 80 09/12/16 04:00 84 09/12/16 03:00 82 09/12/16 03:00 97.0 83 20 118/84 96 09/12/16 02:00 74 09/12/16 01:00 80 09/12/16 00:00 76 09/11/16 23:00 76 09/11/16 23:00 98.0 88 18 131/87 96 09/11/16 22:00 80 09/11/16 21:00 82 09/11/16 20:00 82 09/11/16 19:00 98.9 81 18 143/95 94 09/11/16 19:00 80 09/11/16 18:09 18 09/11/16 18:00 76 09/11/16 17:00 80 09/11/16 16:00 78 09/11/16 15:00 98.4 80 18 127/84 96 09/11/16 15:00 80 09/11/16 14:00 82 09/11/16 13:00 82 I/O 09/11/16 09/11/16 09/11/16 09/12/16 09/12/16 09/12/16 07:00 15:00 23:00 07:00 15:00 23:00 Intake Total 360 ml 442 ml 820 ml 480 ml Output Total 300 ml 600 ml 950 ml Balance 60 ml 442 ml 220 ml -470 ml Intake Oral 360 ml 442 ml 720 ml 480 ml IV Total 100 ml Output Urine Total 300 ml 600 ml 950 ml # Bowel Movements 0 Result Diagram: 09/12/16 0557 09/09/16 0500 Objective Remarks General: laying in bed No acute distress. Deaf. HEENT: atromatic, normocetic Heart: irregular irregular . Grade 2/6 systolic murmur appreciated. Lungs:TYLER. No wheezes, rales, or rhonchi. Breathing is nonlabored. Abdomen: Soft, nontender, obese. BACK: Tenderness to palpation along thoracic and lumbar spine. Extremities: Trace to 1+ bilateral lower extremity edema with chronic venous stasis changes. Procedures None A/P Problem List: (1) Sepsis ICD Code: A41.9 Status: Acute (2) Cirrhosis ICD Code: K74.60 Status: Chronic (3) Left flank pain ICD Code: R10.9 Status: Acute (4) Cervical disc herniation ICD Code: M50.20 Status: Acute (5) Hyponatremia ICD Code: E87.1 Status: Acute (6) Bacteremia ICD Code: R78.81 Status: Acute (7) Elevated troponin I level ICD Code: R74.8 Status: Acute Assessment and Plan 09/11: no f/c , continue current care , lasix on hold , low bp , cbc in am Detail Discussion with ID and cardiology regarding JUANITA indication today Time spent 45 minutes 09/12: Patient sleeping tonight complain, cardiology saw the patient he will discuss with Dr. Menendez and Dr. Wadsworth ID regarding ICD/pacer insertion A/P: Sepsis/ bacteremia Ultrasound-guided paracentesis ordered but no window for paracentesis per US. Blood cultures growing viridans strep. ID consult appreciated. Concern for endocarditis. No evidence of endocarditis on TTE. - Continue Rocephin. - follow repeat blood cultures. NGTD. - JUANITA recommended. Cardiology didn't recommend JUANITA since the one change in management regarding surgery however, I discussed with Dr. Wadsworth infectious specialist who explained to me that she is needed to decide on endocarditis in a patient who has unexplained bacteremia with murmur and needs clearance by ID for pacemaker insertion, I placed a call for cardiology to discuss this with him. Dr. Hoffman graciously returned my call he still does not favor JUANITA since it's high risk, he actually may even recommend against pacemaker, he stated he will discuss with Dr. Wadsworth infectious disease tomorrow V tach/ sinus pauses Cardiology consult appreciated. V tach has improved but pt has frequent sinus pauses on telemetry. EP consulted but unable to place PPM in setting of bacteremia. Patient still with small runs of V. tach 09/10. Improved. - discontinue beta gabriella. - temporary pacing per cardiology if needed. - telemetry. - check electrolytes. Stable. - atropine if needed. Cirrhosis of the liver CT shows marked splenomegaly and esophageal varices. Also small amount of ascites within the abdomen. Appreciate GI recommendations. - GI signed off. Elevated troponin Appreciate cardiology recommendations. Patient has had prior cardiac catheterization and was found to have normal coronary arteries. Echo with normal EF. - continue medical management. - Home Lasix and amlodipine on hold (mostly due to low blood pressure) Thrombocytopenia Chronic, secondary to cirrhosis. Plt count has been decreasing. - Monitor labs. C3 C4 C5 herniated disc With mild spinal cord compression. Appreciate neurosurgery recommendations. No surgical intervention planned at this time. Pt still with significant pain. - Continue pain control. - PT. - Flexeril and pain control as needed. - Added gabapentin. DVT prophylaxis: SCDs. Chemical prophylaxis contraindicated. Radha Baxter MD Sep 12, 2016 12:21
[2016-09-13] VITALS (24 sets, daily range): BP systolic 105–134; BP diastolic 73–90; PULSE 79–96; RESP 12–20; TEMP 96.9–99.1; O2SAT 91–96
[2016-09-13] MEDS: MORPHINE SULFATE 4 MG/ML INJ IV PUSH PRN ×3 (03:04→23:07)
[2016-09-13] MEDS: INSULIN ASPART SUPPLEMENTAL SCALE SQ SCH ×4 (07:00→21:00)
[2016-09-13] MEDS: GABAPENTIN 100 MG CAP PO SCH ×3 (10:00→17:12)
[2016-09-13] MEDS: DOCUSATE SODIUM 100 MG CAP PO SCH ×2 (10:00→20:59)
[2016-09-13] MEDS: SODIUM CHLORIDE 0.9% FLUSH 5 ML FLUSH FLUSH SCH ×2 (10:00→21:00)
[2016-09-13] MEDS: cefTRIAXone INJ 2,000 MG in SODIUM CHLORIDE 0.9% INJ 100 ML IV SCH (10:00)
[2016-09-13] MEDS: SENNOSIDES 8.6 MG TAB PO SCH (10:01)
[2016-09-13] MEDS: oxyCODONE/ACETAMINOPHEN 10 MG/325 MG TAB PO PRN ×2 (10:01→23:07)
--- NOTE | 2016-09-13 13:58 | HHI.PR ---
Subjective Remarks Patient sleeping in bed, woke up to tactile stimuli, he wants to know why he still in the hospital, I discussed with Dr. Hoffman the psychometric examiner as well as the ID and I explained to him and to his friend that no longer ICD and pacer is recommended by the psychometric examiner, ID recommended 4-6 weeks of Rocephin, will get a PICC line and will consult case management for either home health for IV ABX infusion or rehabilitation station lives on the second floor if he is eligible Objective Vitals Vital Signs Date Time Temp Pulse Resp B/P Pulse Ox O2 Delivery O2 Flow Rate FiO2 09/13/16 11:05 16 09/13/16 07:00 96 09/13/16 07:00 98.9 85 20 127/89 95 09/13/16 06:00 86 09/13/16 05:00 90 09/13/16 04:00 82 09/13/16 03:00 97.6 79 20 134/90 92 09/13/16 03:00 86 09/13/16 02:00 88 09/13/16 01:00 84 09/13/16 00:00 86 09/12/16 23:00 97.8 82 20 148/86 93 09/12/16 23:00 85 09/12/16 22:00 88 09/12/16 21:00 88 09/12/16 20:00 86 09/12/16 19:00 84 09/12/16 19:00 98.5 82 14 114/69 92 09/12/16 18:00 82 09/12/16 17:00 86 09/12/16 16:00 88 09/12/16 15:00 99.0 97 18 120/80 96 09/12/16 15:00 80 09/12/16 14:00 86 I/O 09/12/16 09/12/16 09/12/16 09/13/16 09/13/16 09/13/16 07:00 15:00 23:00 07:00 15:00 23:00 Intake Total 480 ml 1060 ml 461 ml Output Total 950 ml 550 ml 600 ml Balance -470 ml 510 ml -139 ml Intake Oral 480 ml 960 ml 461 ml IV Total 100 ml Output Urine Total 950 ml 550 ml 600 ml # Bowel Movements 0 1 Result Diagram: 09/12/16 0557 09/09/16 0340 Objective Remarks GENERAL: This is a well-nourished, well-developed patient, in no apparent distress. SKIN: No rashes, warm and dry HEAD: Atraumatic. Normocephalic. EYES: Pupils equal round and reactive. Extraocular motions intact. No scleral icterus. ENT: Nose without bleeding, or drainage, Airway patent. Patient deaf NECK: Trachea midline. Supple CARDIOVASCULAR: Regular rate and rhythm without murmurs, gallops, or rubs. RESPIRATORY: Fair air entry bilaterally. No wheezes, rales, or rhonchi. GASTROINTESTINAL: Abdomen soft, non-tender, nondistended. Positive bowel sounds MUSCULOSKELETAL: Extremities without clubbing, cyanosis, +1 edema. Pedal pulses appreciated NEUROLOGICAL: Awake and alert. Moves all extremity. Normal speech.no focal neurological deficit Procedures None A/P Problem List: (1) Sepsis ICD Code: A41.9 Status: Acute (2) Cirrhosis ICD Code: K74.60 Status: Chronic (3) Left flank pain ICD Code: R10.9 Status: Acute (4) Cervical disc herniation ICD Code: M50.20 Status: Acute (5) Hyponatremia ICD Code: E87.1 Status: Acute (6) Bacteremia ICD Code: R78.81 Status: Acute (7) Elevated troponin I level ICD Code: R74.8 Status: Acute Assessment and Plan 09/11: no f/c , continue current care , lasix on hold , low bp , cbc in am Detail Discussion with ID and cardiology regarding JUANITA indication today Time spent 45 minutes 09/12: Patient sleeping tonight complain, cardiology saw the patient he will discuss with Dr. Menendez and Dr. Ananth MAYA regarding ICD/pacer insertion 09/13:I discussed with Dr. Hoffman the psychometric examiner as well as the ID and I explained to him and to his friend that no longer ICD and pacer is recommended by the psychometric examiner, ID recommended 4-6 weeks of Rocephin, will get a PICC line and will consult case management for either home health for IV ABX infusion or rehabilitation station lives on the second floor if he is eligible. We'll resume Lasix due to increased BNP and leg swelling, blood pressure is stable now Total times spent 50 minutes A/P: Sepsis/ bacteremia Ultrasound-guided paracentesis ordered but no window for paracentesis per US. Blood cultures growing viridans strep. ID consult appreciated. Concern for endocarditis. No evidence of endocarditis on TTE. - Continue Rocephin. - follow repeat blood cultures. NGTD. - JUANITA recommended by ID, cardiology didn't recommend JUANITA since the one change in management regarding surgery however, I discussed with Dr. Wadsworth infectious specialist who explained to me that she is needed to decide on endocarditis in a patient who has unexplained bacteremia with murmur and needs clearance by ID for pacemaker insertion, later I discussed with Dr. Hoffman the psychometric examiner, he still does not favor JUANITA since it's high risk , he actually may even recommend against pacemaker, he stated he will discuss with Dr. Wadsworth infectious disease as well as Dr. Menendez. On 09/13 D/W cardiology Dr. Hoffman he thing ICD and pacer are normal longer recommended or indicated , then I discussed ID who recommended 4-6 weeks of Rocephin V tach/ sinus pauses Cardiology consult appreciated. V tach has improved but pt has frequent sinus pauses on telemetry. EP consulted but unable to place PPM in setting of bacteremia. Patient still with small runs of V. tach 09/10. Improved. - discontinue beta gabriella. - temporary pacing per cardiology if needed. - telemetry. -Monitor electrolytes. Stable. - atropine if needed. Cirrhosis of the liver CT shows marked splenomegaly and esophageal varices. Also small amount of ascites within the abdomen. Appreciate GI recommendations. - GI signed off. Elevated troponin Appreciate cardiology recommendations. Patient has had prior cardiac catheterization and was found to have normal coronary arteries. Echo with normal EF. - continue medical management. - Home Lasix and amlodipine has been on hold (mostly due to low blood pressure) , resume Lasix due to lower extremity edema and increased BMP Thrombocytopenia Chronic, secondary to cirrhosis. Plt count has been decreasing. - Monitor labs. C3 C4 C5 herniated disc With mild spinal cord compression. Appreciate neurosurgery recommendations. No surgical intervention planned at this time. Pt still with significant pain. - Continue pain control. - PT. - Flexeril and pain control as needed. - Added gabapentin. DVT prophylaxis: SCDs. Chemical prophylaxis contraindicated. Radha Baxter MD Sep 13, 2016 13:58
[2016-09-13] MEDS ORDERED: GABA100C4 PO (14:10)
[2016-09-13] MEDS ORDERED: OXYC1TAB36 PO (14:10)
[2016-09-13] MEDS: FUROSEMIDE 40 MG TAB PO SCH (15:39)
--- NOTE | 2016-09-13 17:45 | HHI.IDPN ---
Subjective Subjective Remarks afebrile repeat BC negative dw Dr Hofmfan: pt is a high risk for JUANITA 2/2 cirrosis, recommended agaist procedure he is ow doing OK Antibiotics CFTX Allergies: Coded Allergies: Lisinopril (Verified Allergy, Intermediate, 09/03/16) Objective . Vital Signs Date Time Temp Pulse Resp B/P Pulse Ox O2 Delivery O2 Flow Rate FiO2 09/13/16 17:27 16 09/13/16 15:00 96 09/13/16 14:00 86 09/13/16 13:00 84 09/13/16 12:00 88 09/13/16 11:05 16 09/13/16 11:00 94 09/13/16 10:00 86 09/13/16 09:00 82 09/13/16 08:00 82 09/13/16 07:00 96 09/13/16 07:00 98.9 85 20 127/89 95 09/13/16 06:00 86 09/13/16 05:00 90 09/13/16 04:00 82 09/13/16 03:00 97.6 79 20 134/90 92 09/13/16 03:00 86 09/13/16 02:00 88 09/13/16 01:00 84 09/13/16 00:00 86 09/12/16 23:00 97.8 82 20 148/86 93 09/12/16 23:00 85 09/12/16 22:00 88 09/12/16 21:00 88 09/12/16 20:00 86 09/12/16 19:00 84 09/12/16 19:00 98.5 82 14 114/69 92 09/12/16 18:00 82 09/12/16 09/12/16 09/13/16 15:00 23:00 07:00 Intake Total 1060 ml 461 ml Output Total 550 ml 600 ml Balance 510 ml -139 ml Intake Oral 960 ml 461 ml IV Total 100 ml Output Urine Total 550 ml 600 ml # Bowel Movements 0 1 . Laboratory Tests Test 09/12/16 05:57 White Blood Count 8.3 TH/MM3 Red Blood Count 3.29 MIL/MM3 Hemoglobin 11.0 GM/DL Hematocrit 32.7 % Mean Corpuscular Volume 99.2 FL Mean Corpuscular Hemoglobin 33.4 PG Mean Corpuscular Hemoglobin 33.7 % Concent Red Cell Distribution Width 15.8 % Platelet Count 32 TH/MM3 Mean Platelet Volume 8.4 FL Neutrophils (%) (Auto) 84.9 % Lymphocytes (%) (Auto) 7.4 % Monocytes (%) (Auto) 7.3 % Eosinophils (%) (Auto) 0.3 % Basophils (%) (Auto) 0.1 % Neutrophils # (Auto) 7.0 TH/MM3 Lymphocytes # (Auto) 0.6 TH/MM3 Monocytes # (Auto) 0.6 TH/MM3 Eosinophils # (Auto) 0.0 TH/MM3 Basophils # (Auto) 0.0 TH/MM3 CBC Comment AUTO DIFF Differential Total Cells 100 Counted Neutrophils % (Manual) 81 % Band Neutrophils % 8 % Lymphocytes % 6 % Monocytes % 5 % Neutrophils # (Manual) 7.4 TH/MM3 Differential Comment FINAL DIFF MANUAL Platelet Estimate LOW Platelet Morphology Comment NORMAL Imaging Last Impressions Abdomen Ultrasound 09/04/16 0000 Signed Impressions: Service Date/Time: Sunday, September 04, 2016 08:46 - CONCLUSION: No clear window for paracentesis. Iain Villa MD CT Angiography 09/03/16 1535 Signed Impressions: Service Date/Time: Saturday, September 03, 2016 19:42 - CONCLUSION: 1. Negative for pulmonary embolus. 2. Mild atelectasis in the lungs. Thom Kebede MD Abdomen/Pelvis CT 09/03/16 1059 Signed Impressions: Service Date/Time: Saturday, September 03, 2016 11:40 - CONCLUSION: 1. Cirrhosis of the liver, marked splenomegaly and esophageal varices. 2. Small amount of ascites within the abdomen. 3. Stable right upper pole renal cyst. 4. Degenerative changes, scoliosis and multiple compression deformities involving the lumbar spine. Alexandr Oakley MD Thoracic Spine MRI 09/03/16 0000 Signed Impressions: Service Date/Time: Saturday, September 03, 2016 17:59 - CONCLUSION: 1. Mild degenerative disc disease. No significant canal stenosis. Specifically no evidence for osteomyelitis. No cord impingement or cord edema. No abnormal enhancing lesions in the thoracic spine. Thom Kebede MD Lumbar Spine MRI 09/03/16 0000 Signed Impressions: Service Date/Time: Saturday, September 03, 2016 17:59 - CONCLUSION: 1. Negative for osteomyelitis. No abnormal enhancing lesion within the lumbar spine. 2. Remote mild compression deformities of L1 and L2. 3. Mild central canal stenosis at L2-3-4. Mild bilateral neural foraminal encroachment between L2 and L5 bilaterally. Thom Kebede MD Cervical Spine MRI 09/03/16 0000 Signed Impressions: Service Date/Time: Saturday, September 03, 2016 17:59 - CONCLUSION: 1. No evidence for osteomyelitis. No fracture or spondylolisthesis. 2. Broad-based disc protrusions at C3-4-5 resulting in mild cord compression. 3. Degenerative change at C5-6-7-T1 effacing the thecal sac around the cord. Thom Kebede MD Physical Exam CONSTITUTIONAL/GENERAL: This is an obese elderly patient, in no apparent distress. TUBES/LINES/DRAINS: SKIN: No jaundice, rashes, or lesions. Ecchymoses on upper extremities. Skin temperature appropriate. Not diaphoretic. EYES: Pupils equal and round and reactive. Extraocular motions intact. No scleral icterus. No injection or drainage. Fundi not examined. ENT: Deaf. Nose without bleeding or purulent drainage. Mucosae without visible erythema, exudates, masses, or lesions. Oral hygein poor, dentition is in poor shape NECK: Trachea midline. Supple, nontender. No palpable thyroid enlargement or nodularity. CARDIOVASCULAR: irregular rate and rhythm with pauses; no murmurs. No JVD. Peripheral pulses symmetric. murmur 2/6 R upper sternal border, ? holosystolic RESPIRATORY/CHEST: Symmetric, unlabored respirations. Clear to auscultation. Breath sounds equal bilaterally. No wheezes, rales, or rhonchi. GASTROINTESTINAL: Abdomen soft, non-tender, nondistended. No hepato-splenomegaly , or palpable masses. No guarding. Bowel sounds present. MUSCULOSKELETAL: Extremities without clubbing, cyanosis, + trace edema. B/l chronic hyperpigmentation more prominent on the LLE NEUROLOGICAL: Awake and alert. Motor and sensory grossly within normal limits. Follows commands. Speech clear Moves all extremities. PSYCHIATRIC: No obvious anxiety/depression. no apparent hallucinations or other psychotic thought process. Assessment & Plan Remarks Sepsis, vir strep, high grade - no source ID'd - 2 D echo negative - not a cancidate fpor JUANITA by ore sampler asessment h/o recent TAVR for LIver cirrosis [facility] prob Here for L flank pain, CT Abd unrevealing for acute prob - pt has marked splenomegaly ? cause of pain Spinal stenosis - NS ff - cont CFTX x 6 wks JUANITA - repeat BC 2 weeks after abx completed dwRN dw Jassi Damico,Nadine Enriquez MD Sep 13, 2016 17:45
--- NOTE | 2016-09-13 17:50 | HHI.FF ---
Infusion Therapy Location of Infusion Therapy: Home Health Care IV Infusion Order Patient Information Patient Weight 125.2 kg Diagnosis: Diagnosis Strep viridanse sepsis Coded Allergies: Lisinopril (Verified Allergy, Intermediate, 09/03/16) Administer Medication Ceftriaxone 2 grams IV q 24 hours Start Treatment: Sep 14, 2016 Stop Treatment: Oct 15, 2016 Additional Information Venous access: PICC Line Additional Instructions [x] Peripheral flush and dressing changes per protocol [x] Implanted port and central online merchandiser: * Implanted port: 10 ml Normal Saline followed by 5 ml Heparin 100 units/ml Heparin flush after each use and monthly to maintain. [] May leave port accessed during therapy. [] May leave peripheral site accessed for duration of therapy. [x] If patient has SOB or respiratory distress, check oxygen saturation. If less than 90% or clinical signs of respiratory distress, administer oxygen at 2 L/min. via nasal cannula and notify physician. [x] Anaphylaxis/Reaction orders: * Stop infusion. * Keep IV line open with saline flush. * Notify physician. * Monitor vital signs every 15 minutes until symptoms resolve. * Check Oxygen saturation; Oxygen at 2 L/min. via nasal cannula if less than 90% or clinical signs of respiratory distress. * Administer diphenhydramine (Benadryl) 25 mg IV STAT, (unless patient has received as pre-med). May repeat once, if necessary. * Solu-Cortef 250 mg IVP over 30-60 seconds, use 100 mg vials for each dissolution. * Epinephrine (1mg/1 ml) 0.3 mg subcutaneously or IVP now with any signs of respiratory distress. * Check with physician for new additional pre-med orders if patient is re- challenged or re-treated. [x] May remove PICC line when treatment complete, after confirming with Physician. [x] If the patient is admitted to the hospital, the ED, or transferred via [facility] , complete transfer form including medication reconciliation order sheet. Laboratory Tests Weekly Labs: CBC w/diff, Creatinine, LFT's (Hepatic function test) Additional Information blood clx x 2 2 weeks after abx completed Nadine Wadsworth MD Sep 13, 2016 17:50
[2016-09-14] VITALS (24 sets, daily range): BP systolic 96–173; BP diastolic 68–94; PULSE 76–141; RESP 20–30; TEMP 97.3–99.7; O2SAT 92–100
[2016-09-14 06:30] LABS: INTERNATIONAL NORMALIZED RATIO 1.6 RATIO; PROTHROMBIN TIME - PATIENT 17.8 SEC (9.8-11.6)
[2016-09-14] MEDS: INSULIN ASPART SUPPLEMENTAL SCALE SQ SCH ×4 (07:00→21:00)
[2016-09-14] MEDS: SODIUM CHLORIDE 0.9% FLUSH 5 ML FLUSH FLUSH SCH ×2 (09:15→23:59)
[2016-09-14] MEDS: GABAPENTIN 100 MG CAP PO SCH ×2 (09:15→15:19)
[2016-09-14] MEDS: DOCUSATE SODIUM 100 MG CAP PO SCH ×2 (09:16→23:59)
[2016-09-14] MEDS: cefTRIAXone INJ 2,000 MG in SODIUM CHLORIDE 0.9% INJ 100 ML IV SCH (09:16)
[2016-09-14] MEDS: SENNOSIDES 8.6 MG TAB PO SCH (09:16)
[2016-09-14] MEDS: oxyCODONE/ACETAMINOPHEN 10 MG/325 MG TAB PO PRN (09:16)
[2016-09-14] MEDS: FUROSEMIDE 40 MG TAB PO SCH (09:16)
--- NOTE | 2016-09-14 09:50 | HHI.FF ---
Face to Face Verification Diagnosis: (1) Atrial fibrillation (2) Troponin level elevated (3) Sepsis (4) Bacteremia Home Health Nursing Order: Medical education Nursing assessment with vital signs IV medication administration I have seen patient [place] Stovall on 09/14/16. My clinical findings support the need for the requested home health care services because: Infection w/ risk of complications I certify that my clinical findings support that this patient is homebound because: Unsafe to leave home unassisted Radha Baxter MD Sep 14, 2016 09:50
--- NOTE | 2016-09-14 14:30 | HHI.PR ---
Subjective Remarks doing well , laying in bed , will dc after pic line placement Objective Vitals Vital Signs Date Time Temp Pulse Resp B/P Pulse Ox O2 Delivery O2 Flow Rate FiO2 09/14/16 12:08 18 09/14/16 07:00 98.0 76 20 173/94 93 09/14/16 06:00 88 09/14/16 05:00 84 09/14/16 04:00 86 09/14/16 03:00 97.7 78 20 96/78 92 09/14/16 03:00 82 09/14/16 02:00 96 09/14/16 01:00 88 09/14/16 00:00 76 09/13/16 23:00 88 09/13/16 23:00 96.9 85 12 105/73 93 09/13/16 22:00 84 09/13/16 21:00 96 09/13/16 20:00 92 09/13/16 19:00 96.9 95 12 105/74 91 09/13/16 19:00 86 09/13/16 18:00 82 09/13/16 17:27 16 09/13/16 17:00 84 09/13/16 16:00 90 09/13/16 15:00 98.8 86 20 123/81 96 09/13/16 15:00 96 I/O 09/13/16 09/13/16 09/13/16 09/14/16 09/14/16 09/14/16 06:59 14:59 22:59 06:59 14:59 22:59 Intake Total 461 ml 940 ml 240 ml Output Total 600 ml 350 ml Balance -139 ml 590 ml 240 ml Intake Oral 461 ml 840 ml 240 ml IV Total 100 ml Output Urine Total 600 ml 350 ml # Voids 2 2 # Bowel Movements 1 0 Result Diagram: 09/12/16 0557 Objective Remarks GENERAL: This is a well-nourished, well-developed patient, in no apparent distress. SKIN: No rashes, warm and dry HEAD: Atraumatic. Normocephalic. EYES: Pupils equal round and reactive. Extraocular motions intact. No scleral icterus. ENT: Nose without bleeding, or drainage, Airway patent. Patient deaf NECK: Trachea midline. Supple CARDIOVASCULAR: Regular rate and rhythm without murmurs, gallops, or rubs. RESPIRATORY: Fair air entry bilaterally. No wheezes, rales, or rhonchi. GASTROINTESTINAL: Abdomen soft, non-tender, nondistended. Positive bowel sounds MUSCULOSKELETAL: Extremities without clubbing, cyanosis, +1 edema. Pedal pulses appreciated NEUROLOGICAL: Awake and alert. Moves all extremity. Normal speech.no focal neurological deficit Procedures None A/P Problem List: (1) Sepsis ICD Code: A41.9 Status: Acute (2) Cirrhosis ICD Code: K74.60 Status: Chronic (3) Left flank pain ICD Code: R10.9 Status: Acute (4) Cervical disc herniation ICD Code: M50.20 Status: Acute (5) Hyponatremia ICD Code: E87.1 Status: Acute (6) Bacteremia ICD Code: R78.81 Status: Acute (7) Elevated troponin I level ICD Code: R74.8 Status: Acute Assessment and Plan 09/11: no f/c , continue current care , lasix on hold , low bp , cbc in am Detail Discussion with ID and cardiology regarding JUANITA indication today Time spent 45 minutes 09/12: Patient sleeping tonight complain, cardiology saw the patient he will discuss with Dr. Menendez and Dr. Wadsworth ID regarding ICD/pacer insertion 09/13:I discussed with Dr. Hoffman the hotel breakfast attendant as well as the ID and I explained to him and to his friend that no longer ICD and pacer is recommended by the hotel breakfast attendant, ID recommended 4-6 weeks of Rocephin, will get a PICC line and will consult case management for either home health for IV ABX infusion or rehabilitation station lives on the second floor if he is eligible. We'll resume Lasix due to increased BNP and leg swelling, blood pressure is stable now Total times spent 50 minutes 09/14: dc today with [facility] for iv abx , picc line today A/P: Sepsis/ bacteremia Ultrasound-guided paracentesis ordered but no window for paracentesis per US. Blood cultures growing viridans strep. ID consult appreciated. Concern for endocarditis. No evidence of endocarditis on TTE. - Continue Rocephin. - follow repeat blood cultures. NGTD. - JUANITA recommended by ID, cardiology didn't recommend JUANITA since the one change in management regarding surgery however, I discussed with Dr. Wadsworth infectious specialist who explained to me that she is needed to decide on endocarditis in a patient who has unexplained bacteremia with murmur and needs clearance by ID for pacemaker insertion, later I discussed with Dr. Hoffman the hotel breakfast attendant, he still does not favor JUANITA since it's high risk , he actually may even recommend against pacemaker, he stated he will discuss with Dr. Wadsworth infectious disease as well as Dr. Menendez. On 09/13 D/W cardiology Dr. Hoffman he thing ICD and pacer are normal longer recommended or indicated , then I discussed ID who recommended 4-6 weeks of Rocephin V tach/ sinus pauses Cardiology consult appreciated. V tach has improved but pt has frequent sinus pauses on telemetry. EP consulted but unable to place PPM in setting of bacteremia. Patient still with small runs of V. tach 09/10. Improved. - discontinue beta gabriella. - temporary pacing per cardiology if needed. - telemetry. -Monitor electrolytes. Stable. - atropine if needed. Cirrhosis of the liver CT shows marked splenomegaly and esophageal varices. Also small amount of ascites within the abdomen. Appreciate GI recommendations. - GI signed off. Elevated troponin Appreciate cardiology recommendations. Patient has had prior cardiac catheterization and was found to have normal coronary arteries. Echo with normal EF. - continue medical management. - Home Lasix and amlodipine has been on hold (mostly due to low blood pressure) , resume Lasix due to lower extremity edema and increased BMP Thrombocytopenia Chronic, secondary to cirrhosis. Plt count has been decreasing. - Monitor labs. C3 C4 C5 herniated disc With mild spinal cord compression. Appreciate neurosurgery recommendations. No surgical intervention planned at this time. Pt still with significant pain. - Continue pain control. - PT. - Flexeril and pain control as needed. - Added gabapentin. DVT prophylaxis: SCDs. Chemical prophylaxis contraindicated. aRdha Baxter MD Sep 14, 2016 14:30
--- NOTE | 2016-09-14 14:32 | HHI.DS ---
Discharge Summary Admission Date Sep 03, 2016 at 21:43 Discharge Date: Sep 14, 2016 Admitting Diagnosis sepsis, flank pain, rule out LA (1) Sepsis ICD Code: A41.9 (2) Cirrhosis ICD Code: K74.60 (3) Left flank pain ICD Code: R10.9 (4) Cervical disc herniation ICD Code: M50.20 (5) Hyponatremia ICD Code: E87.1 (6) Bacteremia ICD Code: R78.81 (7) Elevated troponin I level ICD Code: R74.8 Procedures picc line Brief History - From Admission Mr. Stovall is a 66-year-old who is legally deaf in the past medical history of liver cirrhosis, coronary artery disease, myocardial infarction status post CABG 3 and cardiac stents, congestive heart failure, heart valve replacement, hypertension, atrial fibrillation with rapid ventricular response, diabetes mellitus, and history of alcohol and drug abuse who presented to the emergency room on 09/03/16 complaining of left flank pain for a duration of one and a half weeks. The patient is seen in the emergency room, he is complaining of severe pain left flank that was reduced from December 01 to a 4 with Dilaudid but is back to a 10 out of 10. He complains of urinary frequency and hematuria. There is a small amount of urine in the urinal at the bedside that is blood tinged. In general patient is very poor historian difficult to communicate due to being , however patient is able to read lips movement, He denies any accompanying abdominal pain nausea, vomiting, black or bloody stool, diarrhea, hematemesis, dizziness, blurred vision, or chest pain . CBC/BMP: 09/12/16 0557 Significant Findings Laboratory Tests Test 09/12/16 09/14/16 05:57 05:11 Red Blood Count 3.29 MIL/MM3 (4.50-5.90) Hemoglobin 11.0 GM/DL (13.0-17.0) Hematocrit 32.7 % (39.0-51.0) Platelet Count 32 TH/MM3 (150-450) Neutrophils (%) (Auto) 84.9 % (16.0-70.0) Lymphocytes (%) (Auto) 7.4 % (9.0-44.0) Lymphocytes # (Auto) 0.6 TH/MM3 (1.0-4.8) Neutrophils % (Manual) 81 % (16-70) Band Neutrophils % 8 % (0-6) Lymphocytes % 6 % (9-44) Platelet Estimate LOW (NORMAL) Prothrombin Time 17.8 SEC (9.8-11.6) PE at Discharge GENERAL: This is a well-nourished, well-developed patient, in no apparent distress. SKIN: No rashes, warm and dry HEAD: Atraumatic. Normocephalic. EYES: Pupils equal round and reactive. Extraocular motions intact. No scleral icterus. ENT: Nose without bleeding, or drainage, Airway patent. Patient deaf NECK: Trachea midline. Supple CARDIOVASCULAR: Regular rate and rhythm without murmurs, gallops, or rubs. RESPIRATORY: Fair air entry bilaterally. No wheezes, rales, or rhonchi. GASTROINTESTINAL: Abdomen soft, non-tender, nondistended. Positive bowel sounds MUSCULOSKELETAL: Extremities without clubbing, cyanosis, +1 edema. Pedal pulses appreciated NEUROLOGICAL: Awake and alert. Moves all extremity. Normal speech.no focal neurological deficit Hospital Course 66 male with Sepsis/ bacteremia Ultrasound-guided paracentesis ordered but no window for paracentesis per US. Blood cultures growing viridans strep. ID consult appreciated. Concern for endocarditis. No evidence of endocarditis on TTE. - Continue Rocephin. - follow repeat blood cultures. NGTD. - JUANITA recommended by ID, cardiology didn't recommend JUANITA since the one change in management regarding surgery however, I discussed with Dr. Wadsworth infectious specialist who explained to me that she is needed to decide on endocarditis in a patient who has unexplained bacteremia with murmur and needs clearance by ID for pacemaker insertion, later I discussed with Dr. Hoffman the pig iron loader, he still does not favor JUANITA since it's high risk , he actually may even recommend against pacemaker, he stated he will discuss with Dr. Wadsworth infectious disease as well as Dr. Menendez. On 09/13 D/W cardiology Dr. Hoffman he thing ICD and pacer are normal longer recommended or indicated , then I discussed ID who recommended 4-6 weeks of Rocephin V tach/ sinus pauses Cardiology consult appreciated. V tach has improved but pt has frequent sinus pauses on telemetry. EP consulted but unable to place PPM in setting of bacteremia. Patient still with small runs of V. tach 09/10. Improved. - discontinue beta gabriella. - temporary pacing per cardiology if needed. - telemetry. -Monitor electrolytes. Stable. - atropine if needed. Cirrhosis of the liver CT shows marked splenomegaly and esophageal varices. Also small amount of ascites within the abdomen. Appreciate GI recommendations. - GI signed off. Elevated troponin Appreciate cardiology recommendations. Patient has had prior cardiac catheterization and was found to have normal coronary arteries. Echo with normal EF. - continue medical management. - Home Lasix and amlodipine has been on hold (mostly due to low blood pressure) , resume Lasix due to lower extremity edema and increased BMP Thrombocytopenia Chronic, secondary to cirrhosis. Plt count has been decreasing. - Monitor labs. C3 C4 C5 herniated disc With mild spinal cord compression. Appreciate neurosurgery recommendations. No surgical intervention planned at this time. Pt still with significant pain. - Continue pain control. - PT. - Flexeril and pain control as needed. - Added gabapentin. DVT prophylaxis: SCDs. Chemical prophylaxis contraindicated. 09/11: no f/c , continue current care , lasix on hold , low bp , cbc in am Detail Discussion with ID and cardiology regarding JUANITA indication today Time spent 45 minutes I discussed with Dr. Hoffman the pig iron loader as well as the ID and I explained to him and to his friend that no longer ICD and pacer is recommended by the pig iron loader, ID recommended 4-6 weeks of Rocephin, will get a PICC line and will consult case management for either home health for IV ABX infusion or rehabilitation station lives on the second floor if he is eligible. We'll resume Lasix due to increased BNP and leg swelling, blood pressure is stable now [id number] encounter performed with the patient on discharge day, as well as physical exam, summary of hospitalization course and postdischarge plan has been D/W the patient. D/W nurse D/W pillowcase cutter. Discharge medications reviewed and printed and signed, post discharge follow up visit with PCP and other specialist as well as Brief hospital course and discharge summary has been placed. Pt Condition on Discharge: Fair Discharge Disposition: Disch w/ Home Health Serv Discharge Time: > 30 minutes Discharge Instructions DIET: Follow Instructions for: Heart Healthy Diet Activities you can perform: See Additionl Instruction Other Activity Instructions: per PT recs New Medications: Gabapentin (Gabapentin) 100 Mg Cap 200 MG PO TID . #90 CAP Oxycodone-Acetaminophen (Oxycodone-Acetaminophen) 10-325 mg Tab 1 TAB PO Q4H PRN pain #30 TAB Continued Medications: Amlodipine (Norvasc) 5 Mg Tab 5 MG PO DAILY Blood Pressure Management #0 Ref 0 TAB Aspirin (Aspirin) 81 Mg Tabdr 81 MG PO DAILY TAB Furosemide (Lasix) 40 Mg Tab 40 MG PO DAILY #0 Ref 0 TAB Metoprolol Tartrate (Metoprolol Tartrate) 25 Mg Tab 25 MG PO BID #0 Ref 0 TAB Radha Baxter MD Sep 14, 2016 14:32
--- NOTE | 2016-09-14 17:19 | RADRPT ---
EXAM DATE/TIME: 09/14/2016 16:49 [facility] COMPARISON: No previous studies available for comparison. INDICATIONS : Evaluate post picc line placement. MEDICAL HISTORY : Myocardial infarction. Congestive heart failure. A-Fib. Hypertension. Coronary artery disease. SURGICAL HISTORY : CABG. Coronary artery stent. Heart valve. ENCOUNTER: Initial ACUITY: 1 day PAIN SCORE: 0/10 LOCATION: Right chest FINDINGS: A single view of the chest demonstrates left basilar subsegmental atelectasis without evidence of mas s, infiltrate or effusion. Mild cardiomegaly. The cardiomediastinal contours are unremarkable. [place] structures are intact. CONCLUSION: 1. Left basilar subsegmental atelectasis. 2. Cardiomegaly. 3. Right-sided PICC line with tip in the cavoatrial junction. Iain Villa MD on September 14, 2016 at 17:14 Board Certified Radiologist. This report was verified electronically.
--- NOTE | 2016-09-14 20:59 | HHI.PR ---
Addendum to Inpatient Note Addendum Reason: Additional Documentation Additional Information I was called by patient's nurse that as she was getting ready to discharge the patient tonight, she noted that patient was shaking with some shortness of breath with tachypnea around 35. Patient was sitting at that time getting dressed to go home. She therefore lied him down on the bed. He was comfortable in terms of respiratory status after lying down. The vitals at the time where temperature of 99.7. Blood pressure 131/84. Oxygen was 96% on 2 L nasal cannula. Patient's heart rate was 96. However it was fluctuating between 96-140 although does not sustain. Blood sugar at that time was 82. Patient is diabetic. Chart reviewed in detail. Advised nurse to hold discharge. Also give D50 one ampule IV push 1 dose now. Every hour fingersticks and follow hypoglycemic protocol. Give D50 one ampule IV push every hour when necessary every time the blood sugar is less than 100s. We'll continue to monitor patient overnight. At present, patient is comfortable and episode has passed. Given his comorbidities and ongoing bacteremia/possible endocarditis/need of pacemaker/hypoglycemic episode, I will hold his discharge and monitor him closely. Nursing to page me with any concerns. Nancy Gaspar MD Sep 14, 2016 20:59
[2016-09-14] MEDS ORDERED: DEXTROSE 50% IN WATER 50 ML VIAL(D50) IV PUSH PRN (21:00)
[2016-09-14] MEDS ORDERED: DEXTROSE 50% IN WATER 50 ML VIAL(D50) IV PUSH ONE (21:00)
[2016-09-15] VITALS (8 sets, daily range): BP systolic 138–142; BP diastolic 84–94; PULSE 74–112; RESP 18–24; TEMP 98.8–101.9; O2SAT 96–100
[2016-09-15] MEDS: CYCLOBENZAPRINE HCL 10 MG TAB PO PRN (03:34)
[2016-09-15] MEDS: oxyCODONE/ACETAMINOPHEN 10 MG/325 MG TAB PO PRN (03:35)
[2016-09-15] MEDS: INSULIN ASPART SUPPLEMENTAL SCALE SQ SCH ×2 (06:23→11:59)
[2016-09-15] MEDS: SENNOSIDES 8.6 MG TAB PO SCH (08:31)
[2016-09-15] MEDS: DOCUSATE SODIUM 100 MG CAP PO SCH (08:31)
[2016-09-15] MEDS: GABAPENTIN 100 MG CAP PO SCH ×2 (08:31→11:58)
[2016-09-15] MEDS: FUROSEMIDE 40 MG TAB PO SCH (08:31)
[2016-09-15] MEDS: cefTRIAXone INJ 2,000 MG in SODIUM CHLORIDE 0.9% INJ 100 ML IV SCH (08:32)
[2016-09-15] MEDS: SODIUM CHLORIDE 0.9% FLUSH 5 ML FLUSH FLUSH SCH (08:32)
--- NOTE | 2016-09-15 14:27 | HHI.PR ---
Subjective Remarks Looks like patient pulled out his PICC line and right before he Discharged last night so patient stayed overnight, orders to replace his PICC line is being placed, plan for discharge today after the Objective Vitals Vital Signs Date Time Temp Pulse Resp B/P Pulse Ox O2 Delivery O2 Flow Rate FiO2 09/15/16 13:00 96 09/15/16 12:52 96 09/15/16 11:39 110 09/15/16 11:39 98.8 110 18 142/84 96 09/15/16 10:31 112 09/15/16 09:02 89 09/15/16 09:02 99.0 89 18 138/88 98 09/15/16 08:01 97 09/15/16 07:44 97 09/15/16 03:00 101.9 74 24 138/94 100 09/14/16 23:00 98.9 119 28 112/74 97 09/14/16 22:00 99.3 107 30 101/68 98 09/14/16 21:00 111 30 100/72 99 09/14/16 20:30 99.7 96 30 131/84 95 09/14/16 20:00 103 09/14/16 18:00 94 09/14/16 17:00 94 09/14/16 16:00 92 09/14/16 15:00 98.9 87 20 112/77 92 09/14/16 15:00 100 I/O 09/14/16 09/14/16 09/14/16 09/15/16 09/15/16 09/15/16 07:00 15:00 23:00 07:00 15:00 23:00 Intake Total 240 ml 480 ml Balance 240 ml 480 ml Intake Oral 240 ml 480 ml # Voids 2 Result Diagram: 09/12/16 0557 Objective Remarks GENERAL: This is a well-nourished, well-developed patient, in no apparent distress. SKIN: No rashes, warm and dry HEAD: Atraumatic. Normocephalic. EYES: Pupils equal round and reactive. Extraocular motions intact. No scleral icterus. ENT: Nose without bleeding, or drainage, Airway patent. Patient deaf NECK: Trachea midline. Supple CARDIOVASCULAR: Regular rate and rhythm without murmurs, gallops, or rubs. RESPIRATORY: Fair air entry bilaterally. No wheezes, rales, or rhonchi. GASTROINTESTINAL: Abdomen soft, non-tender, nondistended. Positive bowel sounds MUSCULOSKELETAL: Extremities without clubbing, cyanosis, +1 edema. Pedal pulses appreciated NEUROLOGICAL: Awake and alert. Moves all extremity. Normal speech.no focal neurological deficit Procedures picc line A/P Problem List: (1) Sepsis ICD Code: A41.9 Status: Acute (2) Cirrhosis ICD Code: K74.60 Status: Chronic (3) Left flank pain ICD Code: R10.9 Status: Acute (4) Cervical disc herniation ICD Code: M50.20 Status: Acute (5) Hyponatremia ICD Code: E87.1 Status: Acute (6) Bacteremia ICD Code: R78.81 Status: Acute (7) Elevated troponin I level ICD Code: R74.8 Status: Acute Assessment and Plan 09/11: no f/c , continue current care , lasix on hold , low bp , cbc in am Detail Discussion with ID and cardiology regarding JUANITA indication today Time spent 45 minutes 09/12: Patient sleeping tonight complain, cardiology saw the patient he will discuss with Dr. Menendez and Dr. Ananth MAYA regarding ICD/pacer insertion 09/13:I discussed with Dr. Hoffman the sinker puller as well as the ID and I explained to him and to his friend that no longer ICD and pacer is recommended by the sinker puller, ID recommended 4-6 weeks of Rocephin, will get a PICC line and will consult case management for either home health for IV ABX infusion or rehabilitation station lives on the second floor if he is eligible. We'll resume Lasix due to increased BNP and leg swelling, blood pressure is stable now Total times spent 50 minutes 09/14: dc today with c for iv abx , picc line today 09/15: Patient pulled out his PICC line yesterday prior to be discharged, so he will be discharged today after replacing the PICC line A/P: Sepsis/ bacteremia Ultrasound-guided paracentesis ordered but no window for paracentesis per US. Blood cultures growing viridans strep. ID consult appreciated. Concern for endocarditis. No evidence of endocarditis on TTE. - Continue Rocephin. - follow repeat blood cultures. NGTD. - JUANITA recommended by ID, cardiology didn't recommend JUANITA since the one change in management regarding surgery however, I discussed with Dr. Wadsworth infectious specialist who explained to me that she is needed to decide on endocarditis in a patient who has unexplained bacteremia with murmur and needs clearance by ID for pacemaker insertion, later I discussed with Dr. Hoffman the sinker puller, he still does not favor JUANITA since it's high risk , he actually may even recommend against pacemaker, he stated he will discuss with Dr. Wadsworth infectious disease as well as DrJessica Crisostomoed. On 09/13 D/W cardiology Dr. Hoffman he thing ICD and pacer are normal longer recommended or indicated , then I discussed ID who recommended 4-6 weeks of Rocephin V tach/ sinus pauses Cardiology consult appreciated. V tach has improved but pt has frequent sinus pauses on telemetry. EP consulted but unable to place PPM in setting of bacteremia. Patient still with small runs of V. tach 09/10. Improved. - discontinue beta gabriella. - temporary pacing per cardiology if needed. - telemetry. -Monitor electrolytes. Stable. - atropine if needed. Cirrhosis of the liver CT shows marked splenomegaly and esophageal varices. Also small amount of ascites within the abdomen. Appreciate GI recommendations. - GI signed off. Elevated troponin Appreciate cardiology recommendations. Patient has had prior cardiac catheterization and was found to have normal coronary arteries. Echo with normal EF. - continue medical management. - Home Lasix and amlodipine has been on hold (mostly due to low blood pressure) , resume Lasix due to lower extremity edema and increased BMP Thrombocytopenia Chronic, secondary to cirrhosis. Plt count has been decreasing. - Monitor labs. C3 C4 C5 herniated disc With mild spinal cord compression. Appreciate neurosurgery recommendations. No surgical intervention planned at this time. Pt still with significant pain. - Continue pain control. - PT. - Flexeril and pain control as needed. - Added gabapentin. DVT prophylaxis: SCDs. Chemical prophylaxis contraindicated. Radha Baxter MD Sep 15, 2016 14:27
--- NOTE | 2016-09-15 15:30 | RADRPT ---
EXAM DATE/TIME: 09/15/2016 14:26 [facility] COMPARISON: CHEST SINGLE AP, September 14, 2016, 16:49. INDICATIONS : PICC line MEDICAL HISTORY : Myocardial infarction. SURGICAL HISTORY : CABG. Coronary artery stent, heart valve ENCOUNTER: Subsequent ACUITY: 2 days PAIN SCORE: Non-responsive. LOCATION: chest FINDINGS: Right arm PICC line is present in good position with tip at the atriocaval junction level. There is n o evidence of complication of placement. There is slight basilar atelectasis. No significant effusion . Cardiomediastinal contours are stable and satisfactory. CONCLUSION: Satisfactory PICC line position. Fortino Lujan MD on September 15, 2016 at 15:20 Board Certified Radiologist. This report was verified electronically.
== END 2016-09-15 16:26 | disposition home health service (06) | DRG 872 ==
LOC: NEPE 09:16 → NEDA 21:43 → HOCA 09-04 02:55 → HCIS 09-06 14:13
PROVIDERS: ADMIT Hospitalist; ATTEND Hospitalist
PROC: 02HV33Z Insertion of Infusion Device into Superior Vena Cava, Percutaneous Approach (ICD-10-PCS; principal; 2016-09-14)
PROC: 02HV33Z Insertion of Infusion Device into Superior Vena Cava, Percutaneous Approach (ICD-10-PCS; 2016-09-15)
DX: A40.8 Other streptococcal sepsis (principal); I47.2 Ventricular tachycardia; E87.2 Acidosis; I85.10 Secondary esophageal varices without bleeding; I50.32 Chronic diastolic (congestive) heart failure; I11.0 Hypertensive heart disease with heart failure; E11.649 Type 2 diabetes mellitus with hypoglycemia without coma; I48.0 Paroxysmal atrial fibrillation; M50.01 Cervical disc disorder with myelopathy, high cervical region; E87.1 Hypo-osmolality and hyponatremia; M50.021 Cervical disc disorder at C4-C5 level with myelopathy; K70.31 Alcoholic cirrhosis of liver with ascites; I35.0 Nonrheumatic aortic (valve) stenosis; I25.10 Atherosclerotic heart disease of native coronary artery without angina pectoris; I25.2 Old myocardial infarction; N28.1 Cyst of kidney, acquired; D64.9 Anemia, unspecified; M48.02 Spinal stenosis, cervical region; E66.9 Obesity, unspecified; H91.90 Unspecified hearing loss, unspecified ear; H40.9 Unspecified glaucoma; M19.90 Unspecified osteoarthritis, unspecified site; R16.1 Splenomegaly, not elsewhere classified; M41.9 Scoliosis, unspecified; K72.10 Chronic hepatic failure without coma; D69.59 Other secondary thrombocytopenia; J44.9 Chronic obstructive pulmonary disease, unspecified; R27.8 Other lack of coordination; I48.2 Chronic atrial fibrillation; F10.21 Alcohol dependence, in remission; Z63.72 Alcoholism and drug addiction in family; Z68.37 Body mass index [BMI] 37.0-37.9, adult; Z95.1 Presence of aortocoronary bypass graft; Z95.2 Presence of prosthetic heart valve; Z95.5 Presence of coronary angioplasty implant and graft
CPT/HCPCS: 36569; 71010; 71275; 72156; 72157; 72158; 74176; 76705; 76937; 80048; 80053; 81001; 82550; 82552; 82948; 83605; 83615; 83690; 83735; 83880; 83930; 83935; 84100; 84155; 84484; 85007; 85025; 85027; 85610; 85730; 87040; 87186; 87205; 87804; 93005; 93306; 94664; 96361; 96365; 96366; 96368; 96375; A9579; J0696; J1170; J1642; J1815; J2270; J2543; J3370; J3475; J7030; J7050; Q9967

== ENCOUNTER 2016-09-18 11:31 | Emergency (ER) | payer OTHER ==
[~2016-09-18] VITALS: Ht 182.9 cm; Wt 110.0 kg
[~2016-09-18 11:31] MED LIST changes: -ALBU2.5I INH; +AMLO5 PO; +ASPI1TAB69 PO; -ASPI81TA82 PO; -DICL1GEL TOP; +FURO1TAB60 PO; -FURO1TAB93 PO; +GABA100C4 PO; +HYDR-3516 PO; -HYDR10SO PO; -METH500T3 PO; -METO25 PO; +METO25TA3 PO; -NORV5TAB PO; -ONDA4TAB7 PO; +OXYC1TAB36 PO; -SENN8.6T15 PO; -SPIR25TA PO; -SYMB160A INH; -TIMO; +blood thinner PO
[2016-09-18 11:33] VITALS: BP 113/74; PULSE 98; RESP 20; TEMP 98.8; O2SAT 97
[2016-09-18] MEDS ORDERED: SODIUM CHLORIDE 0.9% FLUSH 5 ML FLUSH IVF PRN (11:45)
[2016-09-18 12:00] VITALS: O2SAT 98
[2016-09-18 12:03] VITALS: BP 116/72; PULSE 100
[2016-09-18 12:32] LABS: AUTOMATED NEUTROPHIL # 7.8 TH/MM3 (1.8-7.7); BASOPHIL % 0.4 % (0.0-2.0); EOSINOPHIL % 0.4 % (0.0-4.0); HEMATOCRIT 29.3 % (39.0-51.0); LYMPH % 6.7 % (9.0-44.0); LYMPHOCYTE # 0.6 TH/MM3 (1.0-4.8); MEAN CELL VOLUME 100.6 FL (80.0-100.0); MEAN CORPUSCULAR HEMOGLOBIN 34.6 PG (27.0-34.0); MEAN CORPUSCULAR HGB CONC 34.4 % (32.0-36.0); MONO % 5.4 % (0.0-8.0); NEUT % 87.1 % (16.0-70.0); PLATELET COUNT 38 TH/MM3 (150-450); RED BLOOD COUNT 2.91 MIL/MM3 (4.50-5.90); WHITE BLOOD COUNT 8.9 TH/MM3 (4.0-11.0)
[2016-09-18 12:34] LABS: APTT (PATIENT) 32.6 SEC (24.3-30.1); INTERNATIONAL NORMALIZED RATIO 1.6 RATIO; PROTHROMBIN TIME - PATIENT 17.8 SEC (9.8-11.6)
[2016-09-18 12:35] LABS: HEMO FLAGS AUTO DIFF
[2016-09-18 12:43] LABS: ALT (GPT) 19 U/L (12-78); ANION GAP 3 MEQ/L (5-15); AST (GOT) 39 U/L (15-37); BICARBONATE 31.7 MEQ/L (21.0-32.0); BLOOD UREA NITROGEN 17 MG/DL (7-18); CHLORIDE 101 MEQ/L (98-107); GLOMERULAR FILTRATION RATE 100 ML/MIN (>89); POTASSIUM 3.5 MEQ/L (3.5-5.1); SODIUM (NA) 136 MEQ/L (136-145)
--- NOTE | 2016-09-18 12:44 | PD ---
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 Patient is on home antibiotics for an infection of his blood. Also has a history of cirrhosis and recently stopped anticoagulation. Patient states that his been bleeding from around his PICC site in the right arm for the past day sometimes heavy. Patient had been dressing it with a 4 x 4 but was told by his home health nurse that this was a source for possible infection the future was told to come in the hospital to have it evaluated by Dr. Han. Patient denies any easy bruising or bleeding. Does not know his anticoagulation medicine mL in the past but thinks it was Coumadin. Has not taken in over 2 weeks from doctor's instruction. Denies any fever denies any abdominal pain nausea vomiting hypovolemic symptoms. PFSH Past Medical History Hx Anticoagulant Therapy: Yes (Coumadin) Arthritis: Yes Asthma: Yes Blood Disorders: Yes (Pt Commented he has thin blood ) Heart Rhythm Problems: Yes (Hx AFib RVR ) Cancer: No Cardiac Catheterization: Yes Cardiovascular Problems: Yes High Cholesterol: No Chemotherapy: No Chest Pain: Yes Congestive Heart Failure: Yes Cerebrovascular Accident: Yes (2004) Coronary Artery Disease: Yes Diabetes: Yes (?) Patient Takes Glucophage: No Diminished Hearing: Yes (DEAF) Endocrine: No Gastrointestinal Disorders: Yes (Chirrosis of the Liver) Glaucoma: Yes Genitourinary: No Hypertension: Yes Immune Disorder: No Implanted Vascular Access Dvce: Yes Musculoskeletal: Yes (Arthritis ) Neurologic: No Psychiatric: No Reproductive: No Respiratory: Yes Immunizations Current: Yes Myocardial Infarction: Yes Pneumonia: Yes Radiation Therapy: No Sickle Cell Disease: No Past Surgical History Abdominal Surgery: Yes (paracentesis) Appendectomy: Yes Cardiac Surgery: Yes (VALVE REPLACEMENT, CABG x3 ) Coronary Stent: Yes Ear Surgery: No Eye Surgery: No Genitourinary Surgery: No Gynecologic Surgery: No Neurologic Surgery: No Oral Surgery: No Thoracic Surgery: No Tonsillectomy: Yes Other Surgery: Yes (Paracentesis) Social History Alcohol Use: No Tobacco Use: No Substance Use: No (HX OF DRUG AND ALCOHOL ABUSE) Allergies-Medications (Allergen,Severity, Reaction): Coded Allergies: Lisinopril (Verified Allergy, Intermediate, 09/18/16) Reported Meds & Prescriptions Reported Meds & Active Scripts Active Norvasc (Amlodipine Besylate) 5 Mg Tab 5 Mg PO DAILY Metoprolol Tartrate 25 Mg Tab 25 Mg PO BID Lasix (Furosemide) 40 Mg Tab 40 Mg PO DAILY Gabapentin 100 Mg Cap 200 Mg PO TID Reported Dupo (Hydrocodone-Acetaminophen) 10-325 Mg Tab 1 Tab PO TID PRN Aspirin 81 Mg Tabdr 81 Mg PO DAILY Review of Systems Except as stated in HPI: all other systems reviewed are Neg Physical Exam Narrative GENERAL: Well-developed well-nourished no apparent distress SKIN: Warm and dry. The right upper extremity PICC line site is clean dry and intact, no signs of infection no active bleeding. No hematoma. Patient does have some dried blood around the site without any clots. The catheter itself draws and flushes without any leaks. HEAD: Atraumatic. Normocephalic. EYES: Pupils equal and round. Possible slight scleral icterus. No injection or drainage. ENT: No nasal bleeding or discharge. Mucous membranes pink and moist. NECK: Trachea midline. No JVD. CARDIOVASCULAR: Regular rate and rhythm. No murmur appreciated. RESPIRATORY: No accessory muscle use. Clear to auscultation. Breath sounds equal bilaterally. GASTROINTESTINAL: Abdomen soft, non-tender, nondistended. Hepatic and splenic margins not palpable. MUSCULOSKELETAL: No obvious deformities. No clubbing. No cyanosis. No edema. NEUROLOGICAL: Awake and alert. No obvious cranial nerve deficits. Motor grossly within normal limits. Normal speech. PSYCHIATRIC: Appropriate mood and affect; insight and judgment normal. Data Data Last Documented VS Vital Signs Date Time Temp Pulse Resp B/P Pulse Ox O2 Delivery O2 Flow Rate FiO2 09/18/16 13:00 96 22 129/76 94 Room Air 09/18/16 11:33 98.8 Orders Complete Blood Count With Diff (09/18/16 11:41) Comprehensive Metabolic Panel (09/18/16 11:41) Prothrombin Time / Inr (Pt) (09/18/16 11:41) Act Partial Throm Time (Ptt) (09/18/16 11:41) Iv Access Insert/Monitor (09/18/16 11:41) Ecg Monitoring (09/18/16 11:41) Oximetry (09/18/16 11:41) Sodium Chloride 0.9% Flush (Ns Flush) (09/18/16 11:45) Chest, Single Ap (09/18/16 ) Heparin Central Flush (Heparin Central F (09/18/16 12:45) Labs Laboratory Tests Test 09/18/16 12:00 White Blood Count 8.9 TH/MM3 Red Blood Count 2.91 MIL/MM3 Hemoglobin 10.1 GM/DL Hematocrit 29.3 % Mean Corpuscular Volume 100.6 FL Mean Corpuscular Hemoglobin 34.6 PG Mean Corpuscular Hemoglobin 34.4 % Concent Red Cell Distribution Width 17.0 % Platelet Count 38 TH/MM3 Mean Platelet Volume 9.3 FL Neutrophils (%) (Auto) 87.1 % Lymphocytes (%) (Auto) 6.7 % Monocytes (%) (Auto) 5.4 % Eosinophils (%) (Auto) 0.4 % Basophils (%) (Auto) 0.4 % Neutrophils # (Auto) 7.8 TH/MM3 Lymphocytes # (Auto) 0.6 TH/MM3 Monocytes # (Auto) 0.5 TH/MM3 Eosinophils # (Auto) 0.0 TH/MM3 Basophils # (Auto) 0.0 TH/MM3 CBC Comment AUTO DIFF Differential Total Cells 100 Counted Neutrophils % (Manual) 72 % Band Neutrophils % 16 % Lymphocytes % 8 % Monocytes % 4 % Neutrophils # (Manual) 7.8 TH/MM3 Differential Comment FINAL DIFF MANUAL Toxic Granulation 1+ Platelet Estimate LOW Platelet Morphology Comment NORMAL Prothrombin Time 17.8 SEC Prothromb Time International 1.6 RATIO Ratio Activated Partial 32.6 SEC Thromboplast Time Sodium Level 136 MEQ/L Potassium Level 3.5 MEQ/L Chloride Level 101 MEQ/L Carbon Dioxide Level 31.7 MEQ/L Anion Gap 3 MEQ/L Blood Urea Nitrogen 17 MG/DL Creatinine 0.78 MG/DL Estimat Glomerular Filtration 100 ML/MIN Rate Random Glucose 114 MG/DL Calcium Level 8.2 MG/DL Total Bilirubin 1.9 MG/DL Aspartate Amino Transf 39 U/L (AST/SGOT) Alanine Aminotransferase 19 U/L (ALT/SGPT) Alkaline Phosphatase 85 U/L Total Protein 6.9 GM/DL Albumin 1.9 GM/DL [facility] Medical Decision Making Medical Screen Exam Complete: Yes Emergency Medical Condition: Yes Differential Diagnosis PICC line malfunction, bleeding from PICC line site, normal PICC line function, coagulopathy, anemia. Narrative Course Patient roomed in emergency department he appears well overall. He is hard of hearing but reads lips. PICC line catheter was evaluated by me and appears to be functioning normally. There is some dried blood around the site which may be expected bleeding after the procedure. He does have an elevated INR at 1.6 was 1.5 on discharge. Does have a history of cirrhosis, bilirubin minimally elevated to 1.9. The patient's PICC line was also evaluated by Martha Merritt of the PICC line team who agrees with my assessment at in the chest x-ray should be performed to confirm the placement. Last 24 hours Impressions Chest X-Ray 09/18/16 0000 Signed Impressions: Service Date/Time: Sunday, September 18, 2016 12:45 - CONCLUSION: No significant interval change. Mild lower lung atelectasis. Neto Evans MD The PICC line was redressed and a Biopatch was placed. Pressure dressing will be placed for the time being to be removed later this afternoon or early tomorrow morning by his home health care nurse. Discussed with him any increased breathing should prompt emergent reevaluation but at this time I think he is having a minimal amount of postprocedure bleeding which is to be expected. A line is functioning well and is no indication further workup at this time. Diagnosis Primary Impression: Bleeding from PICC line Qualified Code: T82.838A - Bleeding from PICC line, initial encounter Med/Other Pt SpecificInfo: Prescription(s) given Scripts Amlodipine (Norvasc)5 Mg Tab5 Mg PO DAILY #30 TAB Ref 0 Prov:Alexandr Correa MD 09/18/16 Metoprolol Tartrate 25 Mg Tab25 Mg PO BID #60 TAB Ref 0 Prov:Alexandr Correa MD 09/18/16 Furosemide (Lasix)40 Mg Tab40 Mg PO DAILY #30 TAB Ref 0 Prov:Alexandr Correa MD 09/18/16 Disposition: 01 DISCHARGE HOME Condition: Stable Alexandr Correa MD Sep 18, 2016 12:44
[2016-09-18 12:45] LABS: ALKALINE PHOSPHATASE 85 U/L (45-117); TOTAL BILIRUBIN ADULT 1.9 MG/DL (0.2-1.0)
[2016-09-18 13:00] VITALS: BP 129/76; PULSE 96; RESP 22; O2SAT 94
[2016-09-18] MEDS ORDERED: HYDR-3366 PO (13:00)
[2016-09-18] MEDS ORDERED: AMLO5 PO (13:13)
[2016-09-18] MEDS ORDERED: METO25TA3 PO (13:13)
[2016-09-18] MEDS ORDERED: FURO1TAB60 PO (13:13)
[2016-09-18 13:19] LABS: BANDS 16 % (0-6); NEUTROPHIL # MANUAL DIFF 7.8 TH/MM3 (1.8-7.7); POLYS (SEG NEUTROPHILS) 72 % (16-70); WBC DIFF SAMPLE 100
[2016-09-18 13:23] LABS: PLATELET ESTIMATE SMEAR LOW (NORMAL); PLATELET MORPHOLOGY NORMAL (NORMAL); SCAN/DIFF FINAL DIFF MANUAL
[2016-09-18 13:24] LABS: TOXIC GRANULATION 1+ (NORMAL)
--- NOTE | 2016-09-18 14:15 | RADRPT ---
EXAM DATE/TIME: 09/18/2016 12:45 [facility] COMPARISON: CHEST SINGLE AP, September 15, 2016, 14:26. INDICATIONS : Adjustment of PICC Line MEDICAL HISTORY : Myocardial infarction. SURGICAL HISTORY : CABG. Coronary artery stent. Heart Valve ENCOUNTER: Initial ACUITY: 1 day PAIN SCORE: 0/10 LOCATION: Bilateral chest FINDINGS: Right-sided PICC line remains in place. Mild cardiac silhouette enlargement unchanged. Lung volumes a re low. Mild linear opacity at the lung bases unchanged. No pleural effusion or pneumothorax. CONCLUSION: No significant interval change. Mild lower lung atelectasis. Neto Evans MD on September 18, 2016 at 14:12 Board Certified Radiologist. This report was verified electronically.
== END 2016-09-18 14:31 | disposition home or self-care (01) ==
LOC: NEPE 11:31
DX: T82.838A Hemorrhage due to vascular prosthetic devices, implants and grafts, initial encounter (principal); I10 Essential (primary) hypertension; K74.60 Unspecified cirrhosis of liver; H91.90 Unspecified hearing loss, unspecified ear; Z87.39 Personal history of other diseases of the musculoskeletal system and connective tissue; Z87.09 Personal history of other diseases of the respiratory system; Z86.79 Personal history of other diseases of the circulatory system; Z86.73 Personal history of transient ischemic attack (TIA), and cerebral infarction without residual deficits; Z87.19 Personal history of other diseases of the digestive system
CPT/HCPCS: 71010; 80053; 85007; 85027; 85610; 85730; 99283

== ENCOUNTER 2016-09-24 09:44 | Inpatient (IN) | payer OTHER, MEDICARE ==
[2016-09-24] VITALS (7 sets, daily range): BP systolic 94–143; BP diastolic 61–79; PULSE 86–108; RESP 16–22; TEMP 97.4–99.5; O2SAT 96–98
[~2016-09-24] VITALS: Ht 182.9 cm; Wt 118.0 kg
[~2016-09-24 09:44] MED LIST changes: +HYDR-3366 PO; -HYDR-3516 PO; -OXYC1TAB36 PO; -blood thinner PO
[2016-09-24] MEDS ORDERED: SODIUM CHLORIDE 0.9% FLUSH 5 ML FLUSH IVF PRN (11:00)
[2016-09-24 11:22] LABS: AUTOMATED NEUTROPHIL # 17.3 TH/MM3 (1.8-7.7); BASOPHIL % 0.3 % (0.0-2.0); EOSINOPHIL % 0.1 % (0.0-4.0); HEMATOCRIT 31.4 % (39.0-51.0); LYMPH % 2.6 % (9.0-44.0); LYMPHOCYTE # 0.5 TH/MM3 (1.0-4.8); MEAN CELL VOLUME 101.9 FL (80.0-100.0); MEAN CORPUSCULAR HEMOGLOBIN 34.8 PG (27.0-34.0); MEAN CORPUSCULAR HGB CONC 34.2 % (32.0-36.0); MONO % 5.7 % (0.0-8.0); NEUT % 91.3 % (16.0-70.0); PLATELET COUNT 60 TH/MM3 (150-450); RED BLOOD COUNT 3.08 MIL/MM3 (4.50-5.90); RED CELL DISTRIBUTION WIDTH 18.6 % (11.6-17.2)
[2016-09-24 11:23] LABS: APTT (PATIENT) 35.2 SEC (24.3-30.1); INTERNATIONAL NORMALIZED RATIO 1.8 RATIO; PROTHROMBIN TIME - PATIENT 20.1 SEC (9.8-11.6)
[2016-09-24 11:26] LABS: HEMO FLAGS AUTO DIFF
[2016-09-24] MEDS ORDERED: MORPHINE SULFATE 4 MG/ML INJ IV PUSH ONE (11:30)
[2016-09-24 11:32] LABS: BICARBONATE 25.2 MEQ/L (21.0-32.0); MAGNESIUM 1.5 MG/DL (1.5-2.5); POTASSIUM 3.4 MEQ/L (3.5-5.1)
--- NOTE | 2016-09-24 11:37 | RADRPT ---
EXAM DATE/TIME: 09/24/2016 11:14 [facility] COMPARISON: CHEST SINGLE AP, September 18, 2016, 12:45. INDICATIONS : Chun pain. MEDICAL HISTORY : Myocardial infarction. SURGICAL HISTORY : CABG. ENCOUNTER: Initial ACUITY: 2 days PAIN SCORE: 8/10 LOCATION: Bilateral chest FINDINGS: The cardiac silhouette is enlarged in transverse diameter. The lungs are free of acute parenchymal op acity. No effusions are identified. A PICC line is in place via right-sided approach with its tip in the region of the superior vena cava. CONCLUSION: 1. Cardiomegaly. No acute pulmonary disease. Cornelio Isaac MD on September 24, 2016 at 11:35 Board Certified Radiologist. This report was verified electronically.
--- NOTE | 2016-09-24 11:48 | PD ---
HPI Chief Complaint: Chest Pain Time Seen by Provider: 10:08 Travel History International Travel<30 days: No Contact w/Intl Traveler<30days: No Traveled to known affect area: No History of Present Illness HPI Patient is a 66-year-old male with history of CAD with previous CABG, CHF, aVR/ TAVR, DM, A. fib, alcohol/tobacco abuse and cirrhosis who presents the emergency department with complaint of left-sided chest pain. Patient is legally deaf and a telephone printed circuit board designer was used for this emergency department encounter. Unfortunately patient does not signed the senior dot net developer and proceeds to speak to me with garbled verbal speech, despite prompting to use senior dot net developer. His speech is difficult to understand, which limits history. From what I can gather from patient and electronic medical record he was hospitalized in early August for bacteremia and is obtaining IV antibiotics through a PICC line. During that hospital stay he had intermittent runs of nonsustained ventricular tachycardia and bradycardic episodes and was evaluated for permanent placement for but given his bacteremia this was not placed. He did have a slightly elevated troponin at approximately 0.2 to the cardiology felt that this was due to his underlying sepsis and not cardiac in nature. Patient has been well in the interim until he had a fall 2 days ago, describing this as a trip and fall not syncope. He did not hit his head or lose consciousness. He states he landed on his left side. Since, he has been having pain to the left side of the chest that wraps around to the back worse with breathing, movement. Pain is moderate, sharp. PFSH Past Medical History Hx Anticoagulant Therapy: Yes Arthritis: Yes Asthma: Yes Blood Disorders: Yes (Pt Commented he has thin blood ) Heart Rhythm Problems: Yes (Hx AFib RVR ) Cancer: No Cardiac Catheterization: Yes Cardiovascular Problems: Yes High Cholesterol: No Chemotherapy: No Chest Pain: Yes Congestive Heart Failure: Yes Cerebrovascular Accident: Yes (2004) Coronary Artery Disease: Yes Diabetes: Yes (?) Patient Takes Glucophage: No Diminished Hearing: Yes (DEAF) Endocrine: No Gastrointestinal Disorders: Yes (Chirrosis of the Liver) Glaucoma: Yes Genitourinary: No Hypertension: Yes Immune Disorder: No Implanted Vascular Access Dvce: Yes Musculoskeletal: Yes (Arthritis ) Neurologic: No Psychiatric: No Reproductive: No Respiratory: Yes Immunizations Current: Yes Myocardial Infarction: Yes Pneumonia: Yes Radiation Therapy: No Sickle Cell Disease: No Past Surgical History Abdominal Surgery: Yes (paracentesis) Appendectomy: Yes Cardiac Surgery: Yes (VALVE REPLACEMENT, CABG x3 ) Coronary Stent: Yes Ear Surgery: No Eye Surgery: No Genitourinary Surgery: No Gynecologic Surgery: No Neurologic Surgery: No Oral Surgery: No Thoracic Surgery: No Tonsillectomy: Yes Other Surgery: Yes (Paracentesis) Social History Alcohol Use: No Tobacco Use: No Substance Use: No (HX OF DRUG AND ALCOHOL ABUSE) Allergies-Medications (Allergen,Severity, Reaction): Coded Allergies: Lisinopril (Verified Allergy, Intermediate, 09/18/16) Reported Meds & Prescriptions Reported Meds & Active Scripts Active Norvasc (Amlodipine Besylate) 5 Mg Tab 5 Mg PO DAILY Metoprolol Tartrate 25 Mg Tab 25 Mg PO BID Lasix (Furosemide) 40 Mg Tab 40 Mg PO DAILY Gabapentin 100 Mg Cap 200 Mg PO TID Reported Alva (Hydrocodone-Acetaminophen) 10-325 Mg Tab 1 Tab PO TID PRN Review of Systems ROS Limitations: Speech Impaired, Poor Historian Physical Exam Exam Limitations: Poor Historian Narrative GENERAL: Elderly obese male in no acute distress SKIN: Warm and dry. Ecchymoses of varying ages on the extremities and torso, including a left-sided chest wall HEAD: Atraumatic. Normocephalic. EYES: Pupils equal and round. No scleral icterus. No injection or drainage. ENT: No nasal bleeding or discharge. Mucous membranes pink and moist. NECK: Supple without midline tenderness to palpation CARDIOVASCULAR: Regular rate and r irregularly irregular hythm. No murmur appreciated. Reproducible tenderness to palpation of the left inferior chest wall around associated ecchymosis. RESPIRATORY: No accessory muscle use. Clear to auscultation. Breath sounds equal bilaterally. GASTROINTESTINAL: Abdomen soft, non-tender, nondistended. Obese MUSCULOSKELETAL: Chronic venous stasis edema, 1-2+ edema. NEUROLOGICAL: Awake and alert. No focal deficits, moves all extremities normally. Speech is garbled PSYCHIATRIC: Slightly cantankerous Data Data Last Documented VS Vital Signs Date Time Temp Pulse Resp B/P Pulse Ox O2 Delivery O2 Flow Rate FiO2 09/24/16 12:47 18 09/24/16 12:00 93 116/79 97 Room Air 09/24/16 09:47 97.5 Orders Electrocardiogram (09/24/16 ) Basic Metabolic Panel (Bmp) (09/24/16 10:59) Ckmb (Isoenzyme) Profile (09/24/16 10:59) Complete Blood Count With Diff (09/24/16 10:59) Magnesium (Mg) (09/24/16 10:59) Prothrombin Time / Inr (Pt) (09/24/16 10:59) Act Partial Throm Time (Ptt) (09/24/16 10:59) Troponin I (09/24/16 10:59) Chest, Single Ap (09/24/16 10:59) Ecg Monitoring (09/24/16 10:59) Bilateral Bp Monitoring (09/24/16 10:59) Iv Access Insert/Monitor (09/24/16 10:59) Oximetry (09/24/16 10:59) Sodium Chloride 0.9% Flush (Ns Flush) (09/24/16 11:00) Morphine Inj (Morphine Inj) (09/24/16 11:30) Lactic Acid Sepsis Protocol (09/24/16 11:32) Blood Culture (09/24/16 11:32) Urinalysis - C+S If Indicated (09/24/16 11:48) Vancomycin Inj (Vancomycin Inj) (09/24/16 13:00) Piperacil-Tazo 4.5 Gm Premix (Zosyn 4.5 (09/24/16 13:00) Labs Laboratory Tests Test 09/24/16 09/24/16 10:40 11:45 White Blood Count 19.0 TH/MM3 Red Blood Count 3.08 MIL/MM3 Hemoglobin 10.7 GM/DL Hematocrit 31.4 % Mean Corpuscular Volume 101.9 FL Mean Corpuscular Hemoglobin 34.8 PG Mean Corpuscular Hemoglobin 34.2 % Concent Red Cell Distribution Width 18.6 % Platelet Count 60 TH/MM3 Mean Platelet Volume 9.3 FL Neutrophils (%) (Auto) 91.3 % Lymphocytes (%) (Auto) 2.6 % Monocytes (%) (Auto) 5.7 % Eosinophils (%) (Auto) 0.1 % Basophils (%) (Auto) 0.3 % Neutrophils # (Auto) 17.3 TH/MM3 Lymphocytes # (Auto) 0.5 TH/MM3 Monocytes # (Auto) 1.1 TH/MM3 Eosinophils # (Auto) 0.0 TH/MM3 Basophils # (Auto) 0.0 TH/MM3 CBC Comment AUTO DIFF Differential Total Cells 100 Counted Neutrophils % (Manual) 93 % Band Neutrophils % 5 % Monocytes % 2 % Neutrophils # (Manual) 18.6 TH/MM3 Differential Comment FINAL DIFF MANUAL Toxic Granulation 1+ Platelet Estimate LOW Platelet Morphology Comment NORMAL Prothrombin Time 20.1 SEC Prothromb Time International 1.8 RATIO Ratio Activated Partial 35.2 SEC Thromboplast Time Sodium Level 136 MEQ/L Potassium Level 3.4 MEQ/L Chloride Level 102 MEQ/L Carbon Dioxide Level 25.2 MEQ/L Anion Gap 9 MEQ/L Blood Urea Nitrogen 16 MG/DL Creatinine 0.81 MG/DL Estimat Glomerular Filtration 96 ML/MIN Rate Random Glucose 104 MG/DL Calcium Level 7.7 MG/DL Magnesium Level 1.5 MG/DL Total Creatine Kinase 25 U/L Troponin I 0.12 NG/ML Lactic Acid Level 1.9 mmol/L MDM Medical Decision Making Medical Screen Exam Complete: Yes Emergency Medical Condition: Yes Medical Record Reviewed: Yes Differential Diagnosis 66-year-old male with history of CAD with previous CABG, CHF, aVR/TAVR, DM, A. fib, alcohol/tobacco abuse and cirrhosis here with reproducible left-sided chest pain after a fall 2 days ago, and recent hospitalization for bacteremia with indwelling PICC line for IV antibiotics. Differential includes mechanical fall versus syncope, arrhythmia, symptomatic anemia, musculoskeletal chest wall pain, rib fracture, hemothorax, pneumothorax, ACS, atypical chest pain. Narrative Course Patient placed on monitor, IV established and blood obtained. Again patient was difficult to obtain any sort of history on and was almost refusing to use the video senior dot net developer, which certainly delayed his care by at least half an hour. A twelve-lead EKG was obtained showing A. fib without notable ST abnormalities, normal intervals. Patient was given morphine for pain. Portal chest x-ray was obtained that by my read shows no acute abnormalities, specifically no evidence of rib fracture, hemothorax or pneumothorax. CBC, BMP , magnesium, CK-MB, troponin, coags were obtained and notable for significant leukocytosis of 19.0 with left shift, hemoglobin baseline at 10.7. Given his leukocytosis with recent bacteremia a lactate and blood cultures were added on. Patient's troponin is slightly elevated at 0.12. Reviewing patient's most recent hospitalization the highest troponin elevation he had was 0.27, most recently 0.10. This is slightly up. In combination with his troponin elevation , leukocytosis my concern is for possible persistent bacteremia, line infection. His abdominal examination is benign and my suspicion for spontaneous bacterial peritonitis is low. Urinalysis was added onto labs. Lactate was normal at 1.9. Patient was empirically treated treated with vancomycin and Zosyn and will be admitted for rule out sepsis and further evaluation of his troponiemia. Diagnosis Primary Impression: Troponin level elevated Additional Impressions: Leukocytosis Qualified Code: D72.829 - Leukocytosis, unspecified type Chest pain Qualified Code: R07.9 - Chest pain, unspecified type Admitting Information Admitting Physician Requests: Admit Lulu Madsen MD Sep 24, 2016 11:48
[2016-09-24 12:15] LABS: BANDS 5 % (0-6); NEUTROPHIL # MANUAL DIFF 18.6 TH/MM3 (1.8-7.7); POLYS (SEG NEUTROPHILS) 93 % (16-70); WBC DIFF SAMPLE 100
[2016-09-24 12:16] LABS: TOXIC GRANULATION 1+ (NORMAL)
[2016-09-24 12:18] LABS: PLATELET ESTIMATE SMEAR LOW (NORMAL)
[2016-09-24 12:19] LABS: PLATELET MORPHOLOGY NORMAL (NORMAL); SCAN/DIFF FINAL DIFF MANUAL
[2016-09-24] MEDS ORDERED: VANCOMYCIN INJ 1,000 MG in SODIUM CHLOR 0.9% 250 ML INJ 250 ML IV STA (13:00)
[2016-09-24] MEDS ORDERED: PIPERACIL-TAZO 4.5 GM PREMIX 100 ML IV STA (13:00)
[2016-09-24 13:37] LABS: BLOOD, URINE TRACE (NEG); GLUCOSE,URINE NEG (NEG); HYALINE CAST, URINE 2 /lpf (RARE); KETONE, URINE NEG (NEG); NITRITE,URINE NEG (NEG); SQUAMOUS EPITHELIAL CELL URINE 1 /hpf (0-5); URINE COLOR YELLOW (YELLW/STRAW)
[2016-09-24 13:38] LABS: COMMENT (UR) CULT NOT INDICATED; CULTURE IF INDICATED CULT NOT INDICATED
[2016-09-24] MEDS ORDERED: POTASSIUM CHLORIDE 20 MEQ CONTROLLED RELEASE TAB PO ONE (14:00)
[2016-09-24] MEDS ORDERED: SENNOSIDES 8.6 MG TAB PO PRN (14:00)
[2016-09-24] MEDS ORDERED: MORPHINE SULFATE 4 MG/ML INJ IV PRN (14:00)
[2016-09-24] MEDS ORDERED: SODIUM CHLORIDE 0.9% FLUSH 5 ML FLUSH FLUSH PRN (14:00)
[2016-09-24] MEDS ORDERED: ACETAMINOPHEN 325 MG TAB PO PRN ×2 (14:00)
[2016-09-24] MEDS ORDERED: NALOXONE HCL 0.4 MG/ML AMP IV PRN (14:00)
[2016-09-24] MEDS: DOCUSATE SODIUM 100 MG CAP PO SCH (14:23)
--- NOTE | 2016-09-24 15:38 | HHI.HP ---
[facility] Service [facility] Primary Care Physician Non-Staff Admission Diagnosis r/o sepsis, elevated trop Diagnoses: Chief Complaint: Left-sided chest pain Travel History International Travel<30 Days: No Contact w/Intl Traveler <30 Da: No Traveled to Known Affected Are: No History of Present Illness The patient is a 66-year-old male who was recently discharged from the hospital after treatment for bacteremia and irregular heart rhythms who is presenting to the hospital after a mechanical fall. The patient says she normally ambulates with a walker but he fell down and hurt the left side of his chest. He did not hit his head or lose consciousness. Since then he has been having significant pain in the left side of his chest and he believes he might have broken a rib. He says the pain medications are working. The patient does say that the chest pain is worse with deep breathing. The pain is sharp in nature. He wants to know what is wrong with him. He says he was discharged from the hospital recently on antibiotics but he doesn't believe antibiotics are working. He says he feels chills regularly. He sometimes feels like he has a fever although he hasn't measured it. He says he has been eating well. He denies shortness of breath. He denies any sweating. Review of Systems Except as stated in HPI: all other systems reviewed are Neg Past Family Social History Past Medical History Liver cirrhosis Coronary artery disease status post CABG 3 and cardiac stents Congestive heart failure Hypertension Atrial fibrillation Diabetes mellitus History of alcohol and drug abuse Possible endocarditis Herniated discs Past Surgical History TAVR Coronary artery bypass graft 3 Cardiac stents Paracentesis Allergies: Coded Allergies: Lisinopril (Verified Allergy, Intermediate, 09/18/16) Active Ordered Medications Current Medications Medications (Trade) Dose Ordered Sig/Blaire Route Start Time Stop Time Status Last Admin (NS Flush) 2 ml UNSCH PRN IVF 09/24/16 11:00 (NS Flush) 2 ml UNSCH PRN FLUSH 09/24/16 14:00 (NS Flush) 2 ml BID FLUSH 09/24/16 21:00 (Tylenol) 650 mg Q4H PRN PO 09/24/16 14:00 (Colace) 100 mg Q12H PO 09/24/16 14:00 09/24/16 14:23 (Senokot) 17.2 mg Q12H PRN PO 09/24/16 14:00 (Tylenol) 650 mg Q6H PRN PO 09/24/16 14:00 (Roxicodone) 10 mg Q4H PRN PO 09/24/16 14:00 (Morphine Inj) 4 mg Q3H PRN IV 09/24/16 14:00 (Roxicodone) 5 mg Q4H PRN PO 09/24/16 14:00 (Narcan Inj) 0.4 mg UNSCH PRN IV 09/24/16 14:00 (Norvasc) 5 mg DAILY PO 09/25/16 09:00 (Neurontin) 200 mg TID PO 09/24/16 18:00 Family History Alcoholism Social History The patient does not drink alcohol anymore. He does not smoke. Physical Exam Vital Signs Vital Signs Date Time Temp Pulse Resp B/P Pulse Ox O2 Delivery O2 Flow Rate FiO2 09/24/16 14:00 99 20 115/70 98 Room Air 09/24/16 13:00 86 20 100/70 97 Room Air 09/24/16 12:47 18 09/24/16 12:00 93 19 116/79 97 Room Air 09/24/16 11:03 102 22 110/73 97 Room Air 09/24/16 10:22 112 25 100 09/24/16 09:47 97.5 90 20 143/61 97 Room Air Physical Exam General: No acute distress. Deaf. HEENT: NC, AT. Heart: Bradycardic. No murmur appreciated. Lungs: Clear to auscultation bilaterally. No wheezes, rales, or rhonchi. Breathing is nonlabored. Abdomen: Soft, nontender, obese. Musculoskeletal: Left sided chest wall tenderness upon palpation. Extremities: Trace to 1+ bilateral lower extremity edema with chronic venous stasis changes. Neuro: Alert and oriented, largely unintelligible speech. Psych: Calm. Laboratory Laboratory Tests Test 09/24/16 09/24/16 09/24/16 10:40 11:45 13:05 White Blood Count 19.0 Red Blood Count 3.08 Hemoglobin 10.7 Hematocrit 31.4 Mean Corpuscular Volume 101.9 Mean Corpuscular Hemoglobin 34.8 Mean Corpuscular Hemoglobin 34.2 Concent Red Cell Distribution Width 18.6 Platelet Count 60 Mean Platelet Volume 9.3 Neutrophils (%) (Auto) 91.3 Lymphocytes (%) (Auto) 2.6 Monocytes (%) (Auto) 5.7 Eosinophils (%) (Auto) 0.1 Basophils (%) (Auto) 0.3 Neutrophils # (Auto) 17.3 Lymphocytes # (Auto) 0.5 Monocytes # (Auto) 1.1 Eosinophils # (Auto) 0.0 Basophils # (Auto) 0.0 CBC Comment AUTO DIFF Differential Total Cells 100 Counted Neutrophils % (Manual) 93 Band Neutrophils % 5 Monocytes % 2 Neutrophils # (Manual) 18.6 Differential Comment FINAL DIFF MANUAL Toxic Granulation 1+ Platelet Estimate LOW Platelet Morphology Comment NORMAL Prothrombin Time 20.1 Prothromb Time International 1.8 Ratio Activated Partial 35.2 Thromboplast Time Sodium Level 136 Potassium Level 3.4 Chloride Level 102 Carbon Dioxide Level 25.2 Anion Gap 9 Blood Urea Nitrogen 16 Creatinine 0.81 Estimat Glomerular Filtration 96 Rate Random Glucose 104 Calcium Level 7.7 Magnesium Level 1.5 Total Creatine Kinase 25 Troponin I 0.12 Lactic Acid Level 1.9 Urine Color YELLOW Urine Turbidity CLEAR Urine pH 6.0 Urine Specific [place] 1.008 Urine Protein NEG Urine Glucose (UA) NEG Urine Ketones NEG Urine Occult Blood TRACE Urine Nitrite NEG Urine Bilirubin NEG Urine Urobilinogen LESS THAN 2.0 Urine Leukocyte Esterase NEG Urine RBC 1 Urine WBC 1 Urine Squamous Epithelial 1 Cells Urine Hyaline Casts 2 Microscopic Urinalysis Comment CULT NOT INDICATED Date/Time Procedure Status Source Growth 09/24/16 11:45 Aerobic Blood Culture Received Blood Peripheral Pending 09/24/16 11:45 Anaerobic Blood Culture Received Blood Peripheral Pending Result Diagram: 09/24/16 1040 09/24/16 1040 Imaging Last Impressions Chest X-Ray 09/24/16 1059 Signed Impressions: Service Date/Time: Saturday, September 24, 2016 11:14 - CONCLUSION: 1. Cardiomegaly. No acute pulmonary disease. Cornelio Isaac MD Assessment and Plan Assessment and Plan Left sided chest pain Following a fall. The pt does have an elevated troponin at 0.12. The chest pain is reproducible upon palpation. EKG without evidence of acute ischemia. CXR unremarkable. Rib x ray also negative for fracture. - pain control as needed with a bowel regimen. - consider cardiology consult. - telemetry. - trend troponins. Sepsis/ bacteremia Recent hospital stay for bacteremia as blood cultures were growing viridans strep. The pt was deemed a high risk for JUANITA by cardiology so JUANITA was deferred. The pt was discharged on ceftriaxone. He now has leukocytosis of 19 and was tachycardic and tachypneic on presentation. - switch Rocephin to vancomycin and Zosyn for now. - follow repeat blood cultures. - consider ID consult. - IVFs. V tach/ sinus pauses On recent admission. Unable to place pacemaker s/t bacteremia. - discontinue beta gabriella. - telemetry. - check electrolytes and replete as needed. Thrombocytopenia/ Anemia Thrombocytopenia likely secondary to cirrhosis. Hemoglobin similar to last admission. - Monitor labs and transfuse if indicated. DVT prophylaxis: SCDs. Chemical prophylaxis contraindicated. Discussed Condition With Dr. Madsen, pt, nurse. Physician Certification 2 Midnight Certification Type: Admission for Inpatient Services Order for Inpatient Services The services are ordered in accordance with Medicare regulations or non- Medicare payer requirements, as applicable. In the case of services not specified as inpatient-only, they are appropriately provided as inpatient services in accordance with the 2-midnight benchmark. Estimated LOS (days): 2 days is the estimated time the patient will need to remain in the hospital, assuming treatment plan goals are met and no additional complications. Post-Hospital Plan: Not yet determined Gualberto Weiss DO Sep 24, 2016 15:38 assuming treatment plan goals are met and no additional complications. Gualberto Weiss DO Sep 24, 2016 15:38
[2016-09-24] MEDS ORDERED: Vancomycin Consult Pharmacy 1 EA OTHER SCH (15:45)
--- NOTE | 2016-09-24 16:27 | RADRPT ---
EXAM DATE/TIME: 09/24/2016 15:58 [facility] COMPARISON: No previous studies available for comparison. INDICATIONS : Evalaute for rib fracture. MEDICAL HISTORY : Myocardial infarction. SURGICAL HISTORY : CABG. Coronary artery stent. ENCOUNTER: Initial ACUITY: 1 day PAIN SCORE: 10/10 LOCATION: Left Ribs FINDINGS: Multiple views of the left ribs were performed. There is no evidence of displaced fracture. No dest ructive lesions or areas of periosteal thickening are seen. Expiratory view of the chest is negative for pneumothorax. The mediastinal structures are midline. A stent mounted prosthetic heart valve an d right-sided PICC line. CONCLUSION: No acute disease. In particular, no rib fractures on the left. Todd Cortes Jr., MD on September 24, 2016 at 16:17 Board Certified Radiologist. This report was verified electronically.
[2016-09-24] MEDS: SODIUM CHLOR 0.9% 1000 ML INJ 1,000 ML IV SCH (16:55)
[2016-09-24] MEDS: GABAPENTIN 100 MG CAP PO SCH (18:00)
[2016-09-24] MEDS ORDERED: MAGNESIUM SULFATE 1 GM PREMIX 100 ML IV SCH (18:30)
[2016-09-24] MEDS: PIPERACIL-TAZO 4.5 GM PREMIX 100 ML IV SCH (23:25)
[2016-09-24] MEDS: SODIUM CHLORIDE 0.9% FLUSH 5 ML FLUSH FLUSH SCH (23:27)
[2016-09-24] MEDS: MAGNESIUM SULFATE 1 GM PREMIX 100 ML IV SCH (23:27)
[2016-09-25 00:20] VITALS: BP 111/68; PULSE 96; RESP 16; TEMP 98; O2SAT 96
[2016-09-25] MEDS: MAGNESIUM SULFATE 1 GM PREMIX 100 ML IV SCH (00:44)
[2016-09-25] MEDS: DOCUSATE SODIUM 100 MG CAP PO SCH ×2 (01:31→13:35)
[2016-09-25] MEDS: PIPERACIL-TAZO 4.5 GM PREMIX 100 ML IV SCH ×3 (03:29→13:35)
[2016-09-25] MEDS: VANCOMYCIN INJ 1,500 MG in SODIUM CHLORID 0.9% 500 ML INJ 500 ML IV SCH ×2 (03:30→13:34)
[2016-09-25 04:00] VITALS: BP 99/56; PULSE 89; RESP 20; TEMP 98.3; O2SAT 95
[2016-09-25] MEDS: SODIUM CHLOR 0.9% 1000 ML INJ 1,000 ML IV SCH (05:55)
[2016-09-25 08:00] VITALS: BP 104/61; PULSE 108; PULSE 92; PULSE 97; RESP 20; TEMP 97; O2SAT 94
[2016-09-25 08:46] LABS: AUTOMATED NEUTROPHIL # 10.9 TH/MM3 (1.8-7.7); BASOPHIL % 0.3 % (0.0-2.0); EOSINOPHIL % 0.2 % (0.0-4.0); LYMPH % 5.4 % (9.0-44.0); LYMPHOCYTE # 0.7 TH/MM3 (1.0-4.8); MEAN CELL VOLUME 102.3 FL (80.0-100.0); MEAN CORPUSCULAR HEMOGLOBIN 35.1 PG (27.0-34.0); MEAN CORPUSCULAR HGB CONC 34.3 % (32.0-36.0); MONO % 5.2 % (0.0-8.0); NEUT % 88.9 % (16.0-70.0); PLATELET COUNT 36 TH/MM3 (150-450); RED BLOOD COUNT 2.54 MIL/MM3 (4.50-5.90); RED CELL DISTRIBUTION WIDTH 18.8 % (11.6-17.2); WHITE BLOOD COUNT 12.2 TH/MM3 (4.0-11.0)
[2016-09-25 08:49] LABS: HEMO FLAGS AUTO DIFF
[2016-09-25] MEDS: GABAPENTIN 100 MG CAP PO SCH ×3 (08:49→18:20)
[2016-09-25] MEDS: amLODIPine BESYLATE 5 MG TAB PO SCH (08:49)
[2016-09-25] MEDS: SODIUM CHLORIDE 0.9% FLUSH 5 ML FLUSH FLUSH SCH ×2 (08:53→20:09)
[2016-09-25 09:26] LABS: BICARBONATE 27.6 MEQ/L (21.0-32.0); MAGNESIUM 1.8 MG/DL (1.5-2.5); POTASSIUM 3.7 MEQ/L (3.5-5.1)
[2016-09-25 09:42] LABS: CALCIUM-PROTEIN CORRECTED 7.6 MG/DL (8.5-10.1)
[2016-09-25 09:43] LABS: PLATELET ESTIMATE SMEAR LOW (NORMAL); PLATELET MORPHOLOGY NORMAL (NORMAL); SCAN/DIFF AUTO DIFF CONFIRMED
[2016-09-25 12:00] VITALS: BP 134/83; PULSE 96; RESP 20; TEMP 98.1; O2SAT 96
[2016-09-25] MEDS ORDERED: CALCIUM GLUCONATE INJ 2 GM in SODIUM CHLORIDE 0.9% INJ 100 ML IV ONE (13:00)
--- NOTE | 2016-09-25 14:16 | HHI.PR ---
Subjective Remarks The traffic signal supervisor maintenance was at the bedside. The pt said he still had pain at his left upper back. He otherwise didn't have any acute complaints. Pain was controlled if he wasn't moving. He had just seen the heart doctor. He denies feeling feverish. Has not had a bowel movement. Objective Vitals Vital Signs Date Time Temp Pulse Resp B/P Pulse Ox O2 Delivery O2 Flow Rate FiO2 09/25/16 12:00 98.1 96 20 134/83 96 09/25/16 08:00 97.0 97 20 104/61 94 09/25/16 08:00 92 09/25/16 04:00 98.3 89 20 99/56 95 09/25/16 00:20 98.0 96 16 111/68 96 09/24/16 20:00 99.5 108 16 94/62 96 09/24/16 16:00 97.4 98 20 117/75 98 I/O 09/24/16 09/24/16 09/24/16 09/25/16 09/25/16 09/25/16 07:00 15:00 23:00 07:00 15:00 23:00 Intake Total 220 ml 1440 ml 720 ml Output Total 300 ml 325 ml 150 ml Balance -80 ml 1115 ml 570 ml Intake Oral 220 ml 360 ml 720 ml IV Total 1080 ml Output Urine Total 300 ml 325 ml 150 ml # Bowel Movements 0 0 Result Diagram: 09/25/16 0826 09/25/16 0820 Imaging Last Impressions Chest X-Ray 09/24/16 1059 Signed Impressions: Service Date/Time: Saturday, September 24, 2016 11:14 - CONCLUSION: 1. Cardiomegaly. No acute pulmonary disease. Cornelio Isaac MD Ribs X-Ray 09/24/16 0000 Signed Impressions: Service Date/Time: Saturday, September 24, 2016 15:58 - CONCLUSION: No acute disease. In particular, no rib fractures on the left. Todd Cortes Jr., MD Objective Remarks General: No acute distress. Deaf. HEENT: NC, AT. Heart: Tachycardic. No murmur appreciated. Lungs: Clear to auscultation bilaterally. No wheezes, rales, or rhonchi. Breathing is nonlabored. Abdomen: Soft, nontender, obese. Musculoskeletal: Left sided tenderness upon palpation of upper back. Extremities: Trace to 1+ bilateral lower extremity edema with chronic venous stasis changes. Neuro: Alert and oriented, largely unintelligible speech. Psych: Calm. Medications and IVs Current Medications Medications (Trade) Dose Ordered Sig/Blaire Route Start Time Stop Time Status Last Admin (NS Flush) 2 ml UNSCH PRN FLUSH 09/24/16 14:00 (NS Flush) 2 ml BID FLUSH 09/24/16 21:00 09/24/16 23:27 (Tylenol) 650 mg Q4H PRN PO 09/24/16 14:00 (Colace) 100 mg Q12H PO 09/24/16 14:00 09/25/16 13:35 (Senokot) 17.2 mg Q12H PRN PO 09/24/16 14:00 (Tylenol) 650 mg Q6H PRN PO 09/24/16 14:00 (Roxicodone) 10 mg Q4H PRN PO 09/24/16 14:00 09/24/16 16:52 (Morphine Inj) 4 mg Q3H PRN IV 09/24/16 14:00 (Roxicodone) 5 mg Q4H PRN PO 09/24/16 14:00 (Narcan Inj) 0.4 mg UNSCH PRN IV 09/24/16 14:00 (Norvasc) 5 mg DAILY PO 09/25/16 09:00 09/25/16 08:49 Gabapentin 200 mg 200 mg TID PO 09/24/16 18:00 09/25/16 13:35 Piperacillin Sod/ Tazobactam Sod 100 ml @ 200 mls/hr Q6H IV 09/24/16 20:00 09/25/16 13:35 Vancomycin HCl 1500 mg/Sodium Chloride 515 ml @ 257.5 mls/ hr Q12H IV 09/25/16 02:00 09/25/16 13:34 (Vancomycin Consult Pharmacy) 0 ml @ 0 mls/hr UNSCH OTHER 09/24/16 15:45 Miscellaneous Information SPECIFIC LAB TO BE DRAWN:[facility]... ONCE ONCE XX 09/27/16 01:45 09/27/16 01:46 (NS 1000 ml Inj) 1,000 ml @ 75 mls/hr [id number] IV 09/24/16 16:15 09/25/16 18:54 09/25/16 05:55 A/P Assessment and Plan Left sided chest pain/ Troponin elevation Following a fall. The pt does have an elevated troponin at 0.47. The chest pain is reproducible upon palpation. EKG without evidence of acute ischemia. CXR unremarkable. Rib x ray also negative for fracture. Appreciate cardiology consult. Concern for endocarditis. - pain control as needed with a bowel regimen. - repeat echo per cardiology. - telemetry. Sepsis/ bacteremia Recent hospital stay for bacteremia as blood cultures were growing viridans strep. The pt was deemed a high risk for JUANITA by cardiology so JUANITA was deferred. The pt was discharged on ceftriaxone. He now has leukocytosis of 19 and was tachycardic and tachypneic on presentation. Improved. - switch vancomycin and Zosyn back to ceftriaxone 2 g IV daily. - follow repeat blood cultures. NGTD. - ID consult pending. - IVFs. - repeat echo ordered. V tach/ sinus pauses on recent admission Unable to place pacemaker s/t bacteremia. Stable at this time. - discontinue beta gabriella. - telemetry. - replete electrolytes as needed. Thrombocytopenia/ Anemia Thrombocytopenia likely secondary to cirrhosis. Hemoglobin similar to last admission. - Monitor labs and transfuse if indicated. DVT prophylaxis: SCDs. Chemical prophylaxis contraindicated. Discharge Planning Awaiting clinical improvement. Gualberto Weiss DO Sep 25, 2016 14:16
--- NOTE | 2016-09-25 14:53 | MB ---
cc: ANURAG NEGRETE M.D. DATE OF CONSULTATION: 09/25/2016. REASON FOR CONSULTATION / CHIEF COMPLAINT: Left flank pain. 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 He has a long history of drug and alcohol abuse and has known end-stage cirrhosis with chronic thrombocytopenia. He has chronic atrial fibrillation. He is status post TAVR at [facility]. Some of his records reflect a history of coronary artery disease but that is not confirmed by our office records. On 05/08/2015, he had a cardiac catheterization at [facility] that in fact showed no significant coronary disease and he was being evaluated at that time for his aortic valve disease. He was in the hospital two weeks ago with Strep viridans bacteremia. At that time, because of his varices and other clinical issues, it was felt that he should be treated empirically for prosthetic valve endocarditis as the confirmatory procedures were felt to have prohibitive risk. He was noted to be bradycardic with significant pauses and his metoprolol was discontinued. CT angiogram of the chest was performed that showed and no evidence of pulmonary embolus. CT of the abdomen at that time showed cirrhosis of the liver, marked splenomegaly and esophageal varices with a renal cyst but no noted splenic or renal infarction. He returns the hospital now complaining of ongoing flank pain that he has had for about three months. It is worse and it has caused him to seek medical attention. He is unaware of any history of atrial fibrillation but he is chronically noted to have that problem. Echocardiogram on 09/06/2016 shows recurrent severe aortic stenosis with a valve area of 0.45 cm2 potentially consistent with dysfunction of his TAVR. At the time I see him, he is comfortable supine in bed. He is relatively conversive through the sign language person. He steadfastly and positively denies any chest pain. He denies any shortness of breath except if he is up and tries to be too active move about to quickly. He denies palpitation, syncope or pre-syncope. PHYSICAL EXAMINATION: GENERAL: On general inspection, he is an alert gentleman lying in bed in no distress. VITAL SIGNS: Blood pressure of 117/75, respirations of 18, pulse is 98, the patient is afebrile and has been afebrile since admission. HEAD, EYES, EARS, NOSE, THROAT/NECK: Unremarkable for the patient's age. LUNGS: Clear. CARDIOVASCULAR: Irregularly irregular rhythm with a 2/6 systolic murmur. S1 and S2 are unremarkable. ABDOMEN: Abdomen soft without masses or peritoneal findings. Slight tenderness on pushing over the left side of the abdomen. Bowel sounds normal. GENITALIA/RECTAL: Deferred. EXTREMITIES: No cyanosis, clubbing or edema. No evidence of embolization. NEUROLOGIC: Grossly intact without focal findings. LABORATORY DATA: Two blood cultures are initially negative. CBC shows hematocrit of 26.0%. White count is mildly elevated at 12,200 but was 19,000 on admission. Platelet count is 36,000 but was 60,000 on admission. INR is 1.8 spontaneously on the basis of his liver failure as he is on no medication. Basic metabolic panel is normal. Calcium is low at 7.0. Troponins are minimally elevated at 0.12, 0.47 and 0.24. IMAGING STUDIES: Chest x-ray is unremarkable. EKGS: Repeat EKG was seen and shows left ventricular hypertrophy and atrial fibrillation with a controlled ventricular response. ASSESSMENT AND PLAN: Essentially the patient presents with elevated troponins, etiology of which is unclear but there is no cardiac or pulmonary symptomatology. His white count is elevated and he may have some ongoing sepsis, although his blood cultures are negative. The obvious concern here with Strep viridans on his previous hospitalization is involvement of his prosthetic valve in an infectious process. He has been deemed because of end-stage liver disease and his coagulopathy not to be a candidate for any repeat intervention and is being offered a medical management only. I will go ahead and repeat the echocardiogram just to be certain he is not developing any aortic insufficiency or paravalvular process. The issue of transesophageal echocardiogram has been previously address and felt to be prohibitive in terms of risk based on his esophageal varices as confirmed by the CT angiogram. Obviously he cannot have any anticoagulation. I would recommend ongoing supportive management. His comorbidity precludes any consideration of surgery, stenting or repeat intervention on the aortic valve. I would treat him empirically for prosthetic valve endocarditis and will defer to infectious disease with regard to this management. If infectious disease has not been consulted, this needs to be done. I will follow with you as needed until his primary laborer beam house, Dr. Tellez, is available. MD PARKER Benavidez/RADHA /1:39 PM /2:32 PM
[2016-09-25 16:00] VITALS: BP 138/70; PULSE 101; RESP 20; TEMP 98.5; O2SAT 99
[2016-09-25] MEDS: cefTRIAXone INJ 2,000 MG in SODIUM CHLORIDE 0.9% INJ 100 ML IV SCH (18:21)
--- NOTE | 2016-09-25 18:28 | EKG ---
Date Performed: 09/24/2016 Time Performed: 10:41:52 PTAGE: 66 years EKG: ATRIAL FIBRILLATION WITH ABERRANT CONDUCTION OR VENTRICULAR PREMATURE COMPLEXES Poor R wave progression. ABNORMAL ECG PREVIOUS TRACING : 09/05/2016 20.26 DOCTOR: Mike Wadsworth Interpretating Date/Time 09/25/2016 18:26:46
[2016-09-25 20:31] VITALS: BP 108/55; PULSE 103; RESP 18; TEMP 98.4; O2SAT 95
[2016-09-26] VITALS (7 sets, daily range): BP systolic 105–137; BP diastolic 72–84; PULSE 97–123; RESP 18–32; TEMP 98.4–99; O2SAT 94–100
[2016-09-26] MEDS: DOCUSATE SODIUM 100 MG CAP PO SCH ×2 (02:36→11:43)
[2016-09-26] MEDS: SODIUM CHLORIDE 0.9% FLUSH 5 ML FLUSH FLUSH SCH ×2 (08:22→21:00)
[2016-09-26] MEDS: amLODIPine BESYLATE 5 MG TAB PO SCH (08:23)
[2016-09-26] MEDS: GABAPENTIN 100 MG CAP PO SCH ×3 (08:23→17:24)
[2016-09-26 08:57] LABS: AUTOMATED NEUTROPHIL # 13.4 TH/MM3 (1.8-7.7); BASOPHIL % 0.2 % (0.0-2.0); EOSINOPHIL % 0.2 % (0.0-4.0); HEMATOCRIT 28.2 % (39.0-51.0); LYMPH % 5.2 % (9.0-44.0); LYMPHOCYTE # 0.8 TH/MM3 (1.0-4.8); MEAN CELL VOLUME 103.5 FL (80.0-100.0); MEAN CORPUSCULAR HEMOGLOBIN 34.8 PG (27.0-34.0); MEAN CORPUSCULAR HGB CONC 33.6 % (32.0-36.0); MONO % 5.8 % (0.0-8.0); NEUT % 88.6 % (16.0-70.0); PLATELET COUNT 45 TH/MM3 (150-450); RED BLOOD COUNT 2.72 MIL/MM3 (4.50-5.90); RED CELL DISTRIBUTION WIDTH 18.7 % (11.6-17.2); WHITE BLOOD COUNT 15.2 TH/MM3 (4.0-11.0)
[2016-09-26 09:01] LABS: HEMO FLAGS AUTO DIFF
[2016-09-26 09:35] LABS: BICARBONATE 25.7 MEQ/L (21.0-32.0); MAGNESIUM 1.8 MG/DL (1.5-2.5); POTASSIUM 3.7 MEQ/L (3.5-5.1)
[2016-09-26 09:47] LABS: CALCIUM-PROTEIN CORRECTED 7.9 MG/DL (8.5-10.1)
[2016-09-26 09:48] LABS: PLATELET ESTIMATE SMEAR LOW (NORMAL); PLATELET MORPHOLOGY NORMAL (NORMAL); SCAN/DIFF AUTO DIFF CONFIRMED
--- NOTE | 2016-09-26 13:21 | PD.ID.CON ---
History of Present Illness Service ID Consult Requested By Dr Wadsworth Reason for Consult Bacteremia Primary Care Physician Non-Staff Diagnoses: History of Present Illness Pt was seen yday on Sep 25 around 1700 Pt is known to me from his recent previous admission 66 yo male with liver cirrhosis and sp TAVR procedure for aortic stenosis admitted last month with flanlk pain His w/u included CT A/P and ultrasound of abdomenn and they did not reveal the cause of his pain, but his admission blood clx had unexplained high grrade viridans strepp bactermeia. 2 2D echo was negative and his repeat BC done on appropriate abx were negative as well Pt was seen by criminal judge 2/2 symptomatic bradicardia duing last admission for possible pacemaker placement and was adviced to have JUANITA done prior to pacer placement for further eval of his ow unexplained bacteremia, but the procedure was considered to be too risky 2/2 hiis cirrhosis The deceision was made to Rx him empirically for endocarditis and repeat blood clx 2 wks after completion of the course; he was d/c'd on Ceftriaxone 2 grams IV q 24 hours thru Oct 15, 2016 He came in 2 days ago with c/o severe abdominal and back pain He had whole spine MRI last month and it showed spinal stenosis, but no infx Pt has no fever but has significant leukocytoisis on this admission (19K) Review of Systems ROS Limitations: Hearing Impaired Except as stated in HPI: all other systems reviewed are Neg Past Family Social History Allergies: Coded Allergies: Lisinopril (Verified Allergy, Intermediate, 09/18/16) Past Medical History Liver cirrhosis Coronary artery disease status post CABG 3 and cardiac stents Congestive heart failure Hypertension Atrial fibrillation Diabetes mellitus History of alcohol and drug abuse Possible endocarditis Herniated discs Past Surgical History TAVR Coronary artery bypass graft 3 Cardiac stents Paracentesis Active Ordered Medications Medications where reviewed in EMR Antibiotics Include: CFTX Family History Alcoholism Social History No Tobacco. Remote ETOH. No Illicit Drugs. Physical Exam Vital Signs Vital Signs Date Time Temp Pulse Resp B/P Pulse Ox O2 Delivery O2 Flow Rate FiO2 09/26/16 12:00 98.5 106 18 119/72 100 09/26/16 09:38 115 09/26/16 08:20 Room Air 09/26/16 08:00 98.4 98 18 105/72 97 09/26/16 04:13 98.7 108 18 128/80 96 09/26/16 00:00 98.9 123 20 137/80 96 09/25/16 20:31 98.4 103 18 108/55 95 09/25/16 16:00 98.5 101 20 138/70 99 Physical Exam CONSTITUTIONAL/GENERAL: This is an aobese elderly patient, in no apparent distress. TUBES/LINES/DRAINS: PICC in place RUE - site OK SKIN: No jaundice, rashes, or lesions. Ecchymoses on upper extremities. Skin temperature appropriate. Not diaphoretic. HEAD: Atraumatic. Normocephalic. EYES: Pupils equal and round and reactive. Extraocular motions intact. No scleral icterus. No injection or drainage. Fundi not examined. ENT: Pt is deaf at b/l Nose without bleeding or purulent drainage. Mucosae without visible erythema, exudates, masses, or lesions. poor dentition NECK: Trachea midline. Supple, nontender. No palpable thyroid enlargement or nodularity. CARDIOVASCULAR: Regular rate and rhythm without , gallops, or rubs. No JVD. Peripheral pulses symmetric. murmur 2/6 R upper sternal border, ? holosystolic RESPIRATORY/CHEST: Symmetric, unlabored respirations. Clear to auscultation. Breath sounds equal bilaterally. No wheezes, rales, or rhonchi. GASTROINTESTINAL: Abdomen soft, diffusely tender, nondistended. No hepato- splenomegaly, or palpable masses. No guarding. Bowel sounds present. GENITOURINARY: Without palpable bladder distension. MUSCULOSKELETAL: Extremities without clubbing, cyanosis, + trace edema. B/l chronic hyperpigmentation more prominent on the LLE No joint tenderness or effusion noted. No calf tenderness. No mottling or clubbing. BACK: tender to palpation on L lumabar area LYMPHATICS: No palpable cervical or supraclavicular adenopathy. NEUROLOGICAL: Awake and alert. Motor and sensory grossly within normal limits. Follows commands. Speech mostly garbled Moves all extremities. PSYCHIATRIC: No obvious anxiety/depression. no apparent hallucinations or other psychotic thought process. Laboratory Laboratory Tests Test 09/26/16 09/26/16 07:40 07:41 White Blood Count 15.2 Red Blood Count 2.72 Hemoglobin 9.5 Hematocrit 28.2 Mean Corpuscular Volume 103.5 Mean Corpuscular Hemoglobin 34.8 Mean Corpuscular Hemoglobin 33.6 Concent Red Cell Distribution Width 18.7 Platelet Count 45 Mean Platelet Volume 8.8 Neutrophils (%) (Auto) 88.6 Lymphocytes (%) (Auto) 5.2 Monocytes (%) (Auto) 5.8 Eosinophils (%) (Auto) 0.2 Basophils (%) (Auto) 0.2 Neutrophils # (Auto) 13.4 Lymphocytes # (Auto) 0.8 Monocytes # (Auto) 0.9 Eosinophils # (Auto) 0.0 Basophils # (Auto) 0.0 CBC Comment AUTO DIFF Differential Comment AUTO DIFF CONFIRMED Platelet Estimate LOW Platelet Morphology Comment NORMAL Sodium Level 137 Potassium Level 3.7 Chloride Level 104 Carbon Dioxide Level 25.7 Anion Gap 7 Blood Urea Nitrogen 15 Creatinine 0.78 Estimat Glomerular Filtration 100 Rate Random Glucose 106 Calcium Level 7.4 Protein Corrected Calcium 7.9 Magnesium Level 1.8 Total Protein 6.1 Date/Time Procedure Status Source Growth 09/24/16 11:45 Aerobic Blood Culture - Preliminary Resulted Blood Peripheral NO GROWTH IN 2 DAYS 09/24/16 11:45 Anaerobic Blood Culture - Preliminary Resulted Blood Peripheral NO GROWTH IN 2 DAYS Result Diagram: 09/26/16 0740 09/26/16 0741 Imaging Last Impressions Chest X-Ray 09/24/16 1059 Signed Impressions: Service Date/Time: Saturday, September 24, 2016 11:14 - CONCLUSION: 1. Cardiomegaly. No acute pulmonary disease. Cornelio Isaac MD Ribs X-Ray 09/24/16 0000 Signed Impressions: Service Date/Time: Saturday, September 24, 2016 15:58 - CONCLUSION: No acute disease. In particular, no rib fractures on the left. Todd Cortes Jr., MD Assessment and Plan Assessment and Plan Sepsis, vir strep in the settings of TAVR for LIver cirrosis Mult med prob Severe back pain Abdominal pain Severe leukocytosis - cont CFTX thru 10/15 -fu BC - consider repeating MRI L spine and CT A/P - chk lipase - fu Wbc Discussed Condition With Dr Isela Wadsworth,Nadine Enriquez MD Sep 26, 2016 13:21
--- NOTE | 2016-09-26 13:23 | HHI.PR ---
Subjective Remarks The patient complained of significant back pain after somebody palpated his back earlier today. A supervisor contact lens was at the bedside and assisting with communication. The patient also mentioned she had lingering chest pain. He wanted to know how much longer he would be in the hospital. Discussed with infectious disease. Objective Vitals Vital Signs Date Time Temp Pulse Resp B/P Pulse Ox O2 Delivery O2 Flow Rate FiO2 09/26/16 12:00 98.5 106 18 119/72 100 09/26/16 09:38 115 09/26/16 08:20 Room Air 09/26/16 08:00 98.4 98 18 105/72 97 09/26/16 04:13 98.7 108 18 128/80 96 09/26/16 00:00 98.9 123 20 137/80 96 09/25/16 20:31 98.4 103 18 108/55 95 09/25/16 16:00 98.5 101 20 138/70 99 I/O 09/25/16 09/25/16 09/25/16 09/26/16 09/26/16 09/26/16 07:00 15:00 23:00 07:00 15:00 23:00 Intake Total 1440 ml 720 ml 650 ml 720 ml Output Total 325 ml 150 ml 800 ml Balance 1115 ml 570 ml 650 ml -80 ml Intake Oral 360 ml 720 ml 650 ml 720 ml IV Total 1080 ml Output Urine Total 325 ml 150 ml 800 ml # Voids 3 # Bowel Movements 0 0 0 Result Diagram: 09/26/16 0740 09/26/16 0741 Imaging Last Impressions Chest X-Ray 09/24/16 1059 Signed Impressions: Service Date/Time: Saturday, September 24, 2016 11:14 - CONCLUSION: 1. Cardiomegaly. No acute pulmonary disease. Cornelio Isaac MD Ribs X-Ray 09/24/16 0000 Signed Impressions: Service Date/Time: Saturday, September 24, 2016 15:58 - CONCLUSION: No acute disease. In particular, no rib fractures on the left. Todd Cortes Jr., MD Objective Remarks General: No acute distress. Deaf. HEENT: NC, AT. Heart: Tachycardic. No murmur appreciated. Lungs: Clear to auscultation bilaterally. No wheezes, rales, or rhonchi. Breathing is nonlabored. Abdomen: Soft, nontender, obese. Musculoskeletal: Left sided tenderness upon palpation of upper back. Extremities: Trace to 1+ bilateral lower extremity edema with chronic venous stasis changes. Neuro: Alert and oriented, largely unintelligible speech. Psych: Teary-eyed. Medications and IVs Current Medications Medications (Trade) Dose Ordered Sig/Blaire Route Start Time Stop Time Status Last Admin (NS Flush) 2 ml UNSCH PRN FLUSH 09/24/16 14:00 (NS Flush) 2 ml BID FLUSH 09/24/16 21:00 09/25/16 20:09 (Tylenol) 650 mg Q4H PRN PO 09/24/16 14:00 (Colace) 100 mg Q12H PO 09/24/16 14:00 09/26/16 11:43 (Senokot) 17.2 mg Q12H PRN PO 09/24/16 14:00 (Tylenol) 650 mg Q6H PRN PO 09/24/16 14:00 (Roxicodone) 10 mg Q4H PRN PO 09/24/16 14:00 09/26/16 11:44 (Morphine Inj) 4 mg Q3H PRN IV 09/24/16 14:00 (Roxicodone) 5 mg Q4H PRN PO 09/24/16 14:00 (Narcan Inj) 0.4 mg UNSCH PRN IV 09/24/16 14:00 (Norvasc) 5 mg DAILY PO 09/25/16 09:00 09/26/16 08:23 Gabapentin 200 mg 200 mg TID PO 09/24/16 18:00 09/26/16 11:43 (Rocephin Inj/NS Inj) 100 ml @ 200 mls/hr Q24H IV 09/25/16 15:00 09/25/16 18:21 A/P Assessment and Plan Left sided chest pain/ Troponin elevation Following a fall. The pt does have an elevated troponin at 0.47. The chest pain is reproducible upon palpation. EKG without evidence of acute ischemia. CXR unremarkable. Rib x ray also negative for fracture. Appreciate cardiology consult. Concern for endocarditis. - pain control as needed with a bowel regimen. - repeat echo per cardiology. - telemetry. Sepsis/ bacteremia Recent hospital stay for bacteremia as blood cultures were growing viridans strep. The pt was deemed a high risk for JUANITA by cardiology so JUANITA was deferred. The pt was discharged on ceftriaxone. He now has leukocytosis of 19 and was tachycardic and tachypneic on presentation. Improved. Appreciate infectious disease consult. - switch vancomycin and Zosyn back to ceftriaxone 2 g IV daily. - follow repeat blood cultures. NGTD. - IVFs. - repeat echo ordered. Back pain The patient has significant back pain upon palpation. He had a recent hospital stay where he had an MRI of the thoracic and lumbar spine. - Repeat MRI of the thoracic and lumbar spine as pain is persistent. - CT abdomen and pelvis pending. - Check LFTs and lipase. V tach/ sinus pauses on recent admission Unable to place pacemaker s/t bacteremia. Stable at this time. - discontinue beta gabriella. - telemetry. - replete electrolytes as needed. Thrombocytopenia/ Anemia Thrombocytopenia likely secondary to cirrhosis. Hemoglobin similar to last admission. - Monitor labs and transfuse if indicated. DVT prophylaxis: SCDs. Chemical prophylaxis contraindicated. Discharge Planning Awaiting clinical improvement. Gualberto Weiss DO Sep 26, 2016 13:23
[2016-09-26] MEDS ORDERED: SODIUM CHLOR 0.9% 1000 ML INJ 1,000 ML IV SCH (13:30)
--- NOTE | 2016-09-26 13:49 | PD.CARD.PN ---
Subjective Subjective Remarks Still some abdominal pain but improved. No CV complaints. Objective Medications Current Medications Medications (Trade) Dose Ordered Sig/Blaire Route Start Time Stop Time Status Last Admin (NS Flush) 2 ml UNSCH PRN FLUSH 09/24/16 14:00 (NS Flush) 2 ml BID FLUSH 09/24/16 21:00 09/25/16 20:09 (Tylenol) 650 mg Q4H PRN PO 09/24/16 14:00 (Colace) 100 mg Q12H PO 09/24/16 14:00 09/26/16 11:43 (Senokot) 17.2 mg Q12H PRN PO 09/24/16 14:00 (Tylenol) 650 mg Q6H PRN PO 09/24/16 14:00 (Roxicodone) 10 mg Q4H PRN PO 09/24/16 14:00 09/26/16 11:44 (Morphine Inj) 4 mg Q3H PRN IV 09/24/16 14:00 (Roxicodone) 5 mg Q4H PRN PO 09/24/16 14:00 (Narcan Inj) 0.4 mg UNSCH PRN IV 09/24/16 14:00 (Norvasc) 5 mg DAILY PO 09/25/16 09:00 09/26/16 08:23 Gabapentin 200 mg 200 mg TID PO 09/24/16 18:00 09/26/16 11:43 Ceftriaxone Sodium 2000 mg/ Sodium Chloride 100 ml @ 200 mls/hr Q24H IV 09/25/16 15:00 09/25/16 18:21 (NS 1000 ml Inj) 1,000 ml @ 75 mls/hr [id number] IV 09/26/16 13:30 09/27/16 02:49 (Oscal) 500 mg Q12HR PO 09/26/16 13:30 Vital Signs / I&O Vital Signs Date Time Temp Pulse Resp B/P Pulse Ox O2 Delivery O2 Flow Rate FiO2 09/26/16 12:00 98.5 106 18 119/72 100 09/26/16 09:38 115 09/26/16 08:20 Room Air 09/26/16 08:00 98.4 98 18 105/72 97 09/26/16 04:13 98.7 108 18 128/80 96 09/26/16 00:00 98.9 123 20 137/80 96 09/25/16 20:31 98.4 103 18 108/55 95 09/25/16 16:00 98.5 101 20 138/70 99 I/O 09/25/16 09/25/16 09/25/16 09/26/16 09/26/16 09/26/16 07:00 15:00 23:00 07:00 15:00 23:00 Intake Total 1440 ml 720 ml 650 ml 720 ml Output Total 325 ml 150 ml 800 ml Balance 1115 ml 570 ml 650 ml -80 ml Intake Oral 360 ml 720 ml 650 ml 720 ml IV Total 1080 ml Output Urine Total 325 ml 150 ml 800 ml # Voids 3 # Bowel Movements 0 0 0 Physical Exam HEENTN: Negative. No JVD. Lungs: Clear CV: 2/6 murmur. No gallops. Abd: + BS. No peritoneal findings. Ext: mild edema with chronic trophic changes. Neuro: Negative. Laboratory Laboratory Tests Test 09/26/16 09/26/16 07:40 07:41 White Blood Count 15.2 TH/MM3 Red Blood Count 2.72 MIL/MM3 Hemoglobin 9.5 GM/DL Hematocrit 28.2 % Mean Corpuscular Volume 103.5 FL Mean Corpuscular Hemoglobin 34.8 PG Mean Corpuscular Hemoglobin 33.6 % Concent Red Cell Distribution Width 18.7 % Platelet Count 45 TH/MM3 Mean Platelet Volume 8.8 FL Neutrophils (%) (Auto) 88.6 % Lymphocytes (%) (Auto) 5.2 % Monocytes (%) (Auto) 5.8 % Eosinophils (%) (Auto) 0.2 % Basophils (%) (Auto) 0.2 % Neutrophils # (Auto) 13.4 TH/MM3 Lymphocytes # (Auto) 0.8 TH/MM3 Monocytes # (Auto) 0.9 TH/MM3 Eosinophils # (Auto) 0.0 TH/MM3 Basophils # (Auto) 0.0 TH/MM3 CBC Comment AUTO DIFF Differential Comment AUTO DIFF CONFIRMED Platelet Estimate LOW Platelet Morphology Comment NORMAL Sodium Level 137 MEQ/L Potassium Level 3.7 MEQ/L Chloride Level 104 MEQ/L Carbon Dioxide Level 25.7 MEQ/L Anion Gap 7 MEQ/L Blood Urea Nitrogen 15 MG/DL Creatinine 0.78 MG/DL Estimat Glomerular Filtration 100 ML/MIN Rate Random Glucose 106 MG/DL Calcium Level 7.4 MG/DL Protein Corrected Calcium 7.9 MG/DL Magnesium Level 1.8 MG/DL Total Protein 6.1 GM/DL Assessment and Plan Assessment and Plan CV stable. Spoke with attending who will keep ID involved as this is likely PVE with Streptococcus Viridans as the prior organism. He is not a canidate for more surgery with this degree of coagulopathy and needs complete course of antibiotics for presumptive endocarditis. AF is at time fast so will adjust Rx. His primary analytical manager (Dr. Kaur) is available to follow up in AM. I will make him aware of patient. CBC is at least stable as is BMP. Marylou Summers MD Sep 26, 2016 13:49
[2016-09-26] MEDS: cefTRIAXone INJ 2,000 MG in SODIUM CHLORIDE 0.9% INJ 100 ML IV SCH (14:01)
[2016-09-26] MEDS: CALCIUM CARBONATE 1.25 GM (CA 500 MG) TAB PO SCH ×2 (14:01→21:39)
[2016-09-26] MEDS ORDERED: DIATRIZOATE MEGLUM/DIATRIZOATE SOD 9 ML CUP PO ONE (14:15)
--- NOTE | 2016-09-26 15:53 | RADRPT ---
EXAM DATE/TIME: 09/26/2016 14:57 [facility] COMPARISON: MRI THORACIC SPINE W & W/O CONTRAST, September 03, 2016, 17:59. MRI LUMBAR SPINE W/O CONTRAST, September 26, 2016, 14:57. INDICATIONS : Back pain. MEDICAL HISTORY : Hypertension. Cirrhosis. Diabetes mellitus type 2. Cardiovascular disease. SURGICAL HISTORY : Coronary artery stent. CABG ENCOUNTER: Initial ACUITY: 1 day PAIN SCORE: 5/10 LOCATION: [facility] TECHNIQUE: Multiplanar multisequence MRI of the thoracic spine was performed. FINDINGS: VERTEBRA: Normal vertebral body height. There is interval development of marked marrow edema surrounding the T8 -9 disc space. There is also mild increased T2 signal within the intervertebral disc space at T8-9. T his is a change from previous study and is concerning for discitis, osteomyelitis until proven otherw ise. There is mild diffuse disc desiccation. There are no compression deformities. ALIGNMENT: Normal. CORD: Normal position and configuration. T1-T2: Normal. T2-T3: The thecal sac has a normal diameter. No evidence of disc bulge or protrusion. T3-T4: The thecal sac has a normal diameter. No evidence of disc bulge or protrusion. T4-T5: The thecal sac has a normal diameter. No evidence of disc bulge or protrusion. T5-T6: The thecal sac has a normal diameter. No evidence of disc bulge or protrusion. T6-T7: The thecal sac has a normal diameter. No evidence of disc bulge or protrusion. T7-T8: Central disc protrusion with inferior migration abuts the cord with mild canal narrowing. T8-T9: Posterior disc bulging effacing the thecal sac abutting the cord with moderate canal stenosis. Perive rtebral increased signal is seen on T2 images having the appearance of phlegmonous changes without fo delmy fluid collection. This is greatest on the left. T9-T10: The thecal sac has a normal diameter. No evidence of disc bulge or protrusion. T10-T11: Right central disc protrusion with slight effacement of the ventral thecal sac. T11-T12: The thecal sac has a normal diameter. No evidence of disc bulge or protrusion. T12-L1: The thecal sac has a normal diameter. No evidence of disc bulge or protrusion. CONCLUSION: 1. Degenerative disc disease and interval progression of abnormal findings are T8-T9 concerning for d iscitis, osteomyelitis until proven otherwise. Maninder Berg MD on September 26, 2016 at 15:47 Board Certified Radiologist. This report was verified electronically.
--- NOTE | 2016-09-26 15:57 | RADRPT ---
EXAM DATE/TIME: 09/26/2016 14:57 [facility] COMPARISON: MRI THORACIC SPINE W/O CONTRAST, September 26, 2016, 14:57. INDICATIONS : Back pain. MEDICAL HISTORY : Hypertension. Diabetes mellitus type 2. Cardiovascular disease. Cirrhosis. SURGICAL HISTORY : Coronary artery stent. CABG Abdominal aortic aneurysm repair. ENCOUNTER: Initial ACUITY: 1 day PAIN SCORE: 6/10 LOCATION: Paraspinal TECHNIQUE: Multiplanar multisequence MRI of the lumbar spine was performed without contrast. FINDINGS: The most caudal appearing lumbar vertebra is numbered as L5. Conus unremarkable. Diffuse disc desicca tion. Moderate disc space narrowing at T12-L1 and L1-2, mild disc space narrowing at L2-3. Nonacute m ild wedge compression fractures at L1 and L2 with Schmorl node formation at the superior endplates. T12-L1: The thecal sac has a normal diameter. No evidence of disc bulge or protrusion. The neural foramina are patent bilaterally. L1-L2: Mild diffuse disc bulge greatest in the left lateral region with mass effect on the left L1 exiting n erve. Mild facet and ligamentum flavum hypertrophy. Mild left foraminal narrowing. L2-L3: Diffuse disc bulge and moderate facet and ligamentum flavum hypertrophy. There is mass effect on the L2 exiting nerves and likely L3 nerve roots bilaterally with moderate bilateral foraminal stenosis. L3-L4: A diffuse disc old is present abutting the L3 exiting nerves. Moderate facet hypertrophy. Moderate bi lateral foraminal stenosis. L4-L5: Mild diffuse disc bulge abuts the L4 exiting nerves. Moderate facet and ligamentum flavum hypertrophy . Mild bilateral foraminal narrowing. L5-S1: No canal or foraminal narrowing. CONCLUSION: Multilevel degenerative changes are noted as above. Nonacute L1 and L2 compression deformities. Maninder Berg MD on September 26, 2016 at 15:53 Board Certified Radiologist. This report was verified electronically.
[2016-09-26 16:31] LABS: INDIRECT BILIRUBIN 1.1 MG/DL (0.0-0.8)
--- NOTE | 2016-09-26 16:56 | RADRPT ---
EXAM DATE/TIME: 09/26/2016 16:33 [facility] COMPARISON: CT ABDOMEN & PELVIS W/O CONTRAST, September 03, 2016, 11:40. INDICATIONS : Diffuse. back pain for four months. ORAL CONTRAST: Prescribed oral contrast ingested. RADIATION DOSE: 22.19 CTDIvol (mGy) MEDICAL HISTORY : Cardiovascular disease. Hypertension. SURGICAL HISTORY : Appendectomy. ENCOUNTER: Initial ACUITY: 4 - 6 months PAIN SCALE: 5/10 LOCATION: Bilateral abdomen. TECHNIQUE: Volumetric scanning of the abdomen and pelvis was performed. Using automated exposure control and ad justment of the mA and/or kV according to patient size, radiation dose was kept as low as reasonably achievable to obtain optimal diagnostic quality images. FINDINGS: There are large bilateral pleural effusions and basilar consolidation from previous. Cirrhosis and ma rked splenomegaly identified. There is moderate ascites. Varices are noted within the upper abdomen i ncluding esophageal varices. The kidneys and adrenal glands are normal an unenhanced appearance. Ther e is no evidence of bowel traction. There is diffuse body wall edema. Atherosclerotic calcifications of the aorta. There are multilevel degenerative changes of the spine noted. CONCLUSION: 1. Cirrhosis and portal hypertension. 2. Large bilateral effusions and consolidation. Maninder Berg MD on September 26, 2016 at 16:52 Board Certified Radiologist. This report was verified electronically.
--- NOTE | 2016-09-26 19:21 | PD.CONS ---
History of Present Illness Service Neurosurgery Consult Requested By Medicine service Reason for Consult Thoracic discitis Primary Care Physician Non-Staff Diagnoses: History of Present Illness 66 yo male with history of alcohol and drug abuse, with liver cirrhosis and secondary coagulopathy he has history of chronic atrial fibrillation, aortic stenosis, with previous TAVR procedure. He was admitted approximately a month ago with thoracolumbar pain. Imaging studies of the spine were negative for any significant lesions at that time. He was noted to be septic with strep. Viridans and treated with appropriate antibiotics. A 2-D echo was also negative during that admission. He was noted to have bradycardia and was worked up for possible pacemaker placement. He was treated with ceftriaxone for possible bacterial endocarditis. The patient now presents with complaints of severe recurrent pain in the mid to lower thoracic region. He states that the pain is so severe that he is unable to ambulate. However he has no complaining of significant pain weakness or numbness in the lower extremities and no complaining of bowel or bladder dysfunction. Does not indicate any recent fevers or chills. The patient is legally and communicates via a line assigner who is in the room with him at the time of the examination. Review of Systems Constitutional: COMPLAINS OF: Fatigue, DENIES: Fever, Dizziness Eyes: DENIES: Blurred vision, Diplopia Ears, nose, mouth, throat: COMPLAINS OF: Hearing loss, DENIES: Throat pain Respiratory: DENIES: Cough, Shortness of breath Cardiovascular: DENIES: Chest pain, Palpitations Gastrointestinal: DENIES: Abdominal pain, Diarrhea, Nausea Musculoskeletal: COMPLAINS OF: Back pain, DENIES: Joint pain, Muscle aches, Neck pain Hematologic/lymphatic: DENIES: Bruising Neurologic: COMPLAINS OF: Abnormal gait, DENIES: Headache, Paresthesias Psychiatric: DENIES: Anxiety, Depression Past Family Social History Allergies: Coded Allergies: Lisinopril (Verified Allergy, Intermediate, 09/18/16) Past Medical History Atrial fibrillation Coronary artery disease Cirrhosis Hypertension Diabetes Past Surgical History Coronary bypass Cardiac stents T AVR procedure at [facility] Reported Medications Reported Meds & Active Scripts Active Norvasc (Amlodipine Besylate) 5 Mg Tab 5 Mg PO DAILY Metoprolol Tartrate 25 Mg Tab 25 Mg PO BID Lasix (Furosemide) 40 Mg Tab 40 Mg PO DAILY Gabapentin 100 Mg Cap 200 Mg PO TID Reported [place] (Hydrocodone-Acetaminophen) 10-325 Mg Tab 1 Tab PO TID PRN Social History History of drug and alcohol abuse Physical Exam Vital Signs Vital Signs Date Time Temp Pulse Resp B/P Pulse Ox O2 Delivery O2 Flow Rate FiO2 09/26/16 16:00 98.7 109 18 137/84 94 09/26/16 12:00 98.5 106 18 119/72 100 09/26/16 09:38 115 09/26/16 08:20 Room Air 09/26/16 08:00 98.4 98 18 105/72 97 09/26/16 04:13 98.7 108 18 128/80 96 09/26/16 00:00 98.9 123 20 137/80 96 09/25/16 20:31 98.4 103 18 108/55 95 Physical Exam GENERAL: Moderately obese gentleman, appears painful one tries to turn in bed SKIN: No rashes, ecchymoses or lesions. Cool and dry. HEAD: Atraumatic. Normocephalic. No temporal or scalp tenderness. EYES sclerae are clear and nonicteric ENT: No facial edema or ecchymosis NECK:Supple, nontender, no meningeal signs. MUSCULOSKELETAL: Moderate lower extremity edema. No joint tenderness, effusion, or edema noted. No calf tenderness. Negative Homans sign bilaterally. NEUROLOGICAL: Awake and alert Speech clear and appropriate Answers simple questions well and follows commands without significant difficulty No obvious anxiety Extraocular movements intact Facial motor movements symmetric Sensation intact light touch all extremities Strength 5/5 plantarflexion and extension groups in the lower extremities Strength normal bilateral hand intrinsics Rolando's absence of bilateral No ankle clonus Plantar neutral bilateral Laboratory Laboratory Tests Test 09/26/16 09/26/16 07:40 07:41 White Blood Count 15.2 Red Blood Count 2.72 Hemoglobin 9.5 Hematocrit 28.2 Mean Corpuscular Volume 103.5 Mean Corpuscular Hemoglobin 34.8 Mean Corpuscular Hemoglobin 33.6 Concent Red Cell Distribution Width 18.7 Platelet Count 45 Mean Platelet Volume 8.8 Neutrophils (%) (Auto) 88.6 Lymphocytes (%) (Auto) 5.2 Monocytes (%) (Auto) 5.8 Eosinophils (%) (Auto) 0.2 Basophils (%) (Auto) 0.2 Neutrophils # (Auto) 13.4 Lymphocytes # (Auto) 0.8 Monocytes # (Auto) 0.9 Eosinophils # (Auto) 0.0 Basophils # (Auto) 0.0 CBC Comment AUTO DIFF Differential Comment AUTO DIFF CONFIRMED Platelet Estimate LOW Platelet Morphology Comment NORMAL Sodium Level 137 Potassium Level 3.7 Chloride Level 104 Carbon Dioxide Level 25.7 Anion Gap 7 Blood Urea Nitrogen 15 Creatinine 0.78 Estimat Glomerular Filtration 100 Rate Random Glucose 106 Calcium Level 7.4 Protein Corrected Calcium 7.9 Magnesium Level 1.8 Total Bilirubin 2.0 Direct Bilirubin 0.9 Indirect Bilirubin 1.1 Aspartate Amino Transf 39 (AST/SGOT) Alanine Aminotransferase 13 (ALT/SGPT) Alkaline Phosphatase 76 Total Protein 6.1 Albumin 1.6 Lipase 61 Date/Time Procedure Status Source Growth 09/24/16 11:45 Aerobic Blood Culture - Preliminary Resulted Blood Peripheral NO GROWTH IN 2 DAYS 09/24/16 11:45 Anaerobic Blood Culture - Preliminary Resulted Blood Peripheral NO GROWTH IN 2 DAYS Result Diagram: 09/26/16 0740 09/26/16 0741 Imaging 09/26/16 thoracic and lumbar spine MRI images reviewed by the undersigned. No definite significant spinal cord compression at the T8 9 level. No definite evidence of abscess formation. No abnormal signal intensity within the cord. Agree with findings as noted below: Thoracic Spine MRI 09/26/16 0000 Signed Impressions: Service Date/Time: Monday, September 26, 2016 14:57 - CONCLUSION: 1. Degenerative disc disease and interval progression of abnormal findings are T8-T9 concerning for discitis, osteomyelitis until proven otherwise. Maninder Berg MD Lumbar Spine MRI 09/26/16 0000 Signed Impressions: Service Date/Time: Monday, September 26, 2016 14:57 - CONCLUSION: Multilevel degenerative changes are noted as above. Nonacute L1 and L2 compression deformities. Maninder Berg MD Abdomen/Pelvis CT 09/26/16 0000 Signed Impressions: Service Date/Time: Monday, September 26, 2016 16:33 - CONCLUSION: 1. Cirrhosis and portal hypertension. 2. Large bilateral effusions and consolidation. Maninder Berg MD Chest X-Ray 09/24/16 1059 Signed Impressions: Service Date/Time: Saturday, September 24, 2016 11:14 - CONCLUSION: 1. Cardiomegaly. No acute pulmonary disease. Cornelio Isaac MD Ribs X-Ray 09/24/16 0000 Signed Impressions: Service Date/Time: Saturday, September 24, 2016 15:58 - CONCLUSION: No acute disease. In particular, no rib fractures on the left. Todd Cortes Jr., MD Assessment and Plan Assessment and Plan Impression: 1. Findings most consistent with T8-9 discitis without abscess formation. No significant canal compromise or cord compression. No evidence of thoracic myelopathy. Recommendations: Findings discussed with the patient via his full time staff interpreter. Continuing IV antibiotics per infectious disease. Given his coagulopathy and prior treatment with antibiotics, it is felt best to avoid a disc biopsy at this time. Continue antibiotic treatment based on blood cultures. Sreedhar Jones MD Sep 26, 2016 19:21
--- NOTE | 2016-09-26 23:39 | HHI.PR ---
Addendum to Inpatient Note Additional Information Thoracic Spine MRI 09/26/16 0000 Signed Impressions: Service Date/Time: Monday, September 26, 2016 14:57 - CONCLUSION: 1. Degenerative disc disease and interval progression of abnormal findings are T8-T9 concerning for discitis, osteomyelitis until proven otherwise. cont CFTX CT guided bx dw Nadine Mancilla MD Sep 26, 2016 23:39
[2016-09-27] VITALS (11 sets, daily range): BP systolic 92–145; BP diastolic 60–88; PULSE 78–113; RESP 16–24; TEMP 98.2–99.8; O2SAT 93–100
[2016-09-27] MEDS ORDERED: PHARMACY ORDERED LAB XX ONE (01:45)
[2016-09-27] MEDS: DOCUSATE SODIUM 100 MG CAP PO SCH ×2 (03:23→17:40)
[2016-09-27] MEDS: CALCIUM CARBONATE 1.25 GM (CA 500 MG) TAB PO SCH ×2 (08:50→22:01)
[2016-09-27] MEDS: amLODIPine BESYLATE 5 MG TAB PO SCH (08:50)
[2016-09-27] MEDS: GABAPENTIN 100 MG CAP PO SCH ×3 (08:51→17:40)
[2016-09-27] MEDS: SODIUM CHLORIDE 0.9% FLUSH 5 ML FLUSH FLUSH SCH ×2 (08:51→21:00)
--- NOTE | 2016-09-27 10:46 | HHI.PR ---
Subjective Remarks The patient had just worked with physical therapy. He had questions about the bone biopsy. Toy Mechanic was assisting with conversation. The patient had a friend at the bedside whose questions were answered. The patient was wondering about having some sort of a brace. Discussed with nursing. Objective Vitals Vital Signs Date Time Temp Pulse Resp B/P Pulse Ox O2 Delivery O2 Flow Rate FiO2 09/27/16 09:00 Room Air 09/27/16 08:00 98.4 102 24 119/70 94 09/27/16 04:00 98.2 87 16 92/61 96 09/27/16 00:00 99.8 102 20 102/60 93 09/26/16 20:00 Room Air 09/26/16 20:00 99.0 97 32 118/82 98 09/26/16 16:00 98.7 109 18 137/84 94 09/26/16 12:00 98.5 106 18 119/72 100 I/O 09/26/16 09/26/16 09/26/16 09/27/16 09/27/16 09/27/16 07:00 15:00 23:00 07:00 15:00 23:00 Intake Total 720 ml 2658 ml 352 ml Output Total 800 ml 400 ml 100 ml 300 ml Balance -80 ml 2258 ml 252 ml -300 ml Intake Oral 720 ml 840 ml IV Total 1818 ml 352 ml Output Urine Total 800 ml 400 ml 100 ml 300 ml # Bowel Movements 0 0 Result Diagram: 09/26/16 0740 09/26/16 0741 Imaging Last Impressions Thoracic Spine MRI 09/26/16 0000 Signed Impressions: Service Date/Time: Monday, September 26, 2016 14:57 - CONCLUSION: 1. Degenerative disc disease and interval progression of abnormal findings are T8-T9 concerning for discitis, osteomyelitis until proven otherwise. Maninder Berg MD Lumbar Spine MRI 09/26/16 0000 Signed Impressions: Service Date/Time: Monday, September 26, 2016 14:57 - CONCLUSION: Multilevel degenerative changes are noted as above. Nonacute L1 and L2 compression deformities. Maninder Berg MD Abdomen/Pelvis CT 09/26/16 0000 Signed Impressions: Service Date/Time: Monday, September 26, 2016 16:33 - CONCLUSION: 1. Cirrhosis and portal hypertension. 2. Large bilateral effusions and consolidation. Maninder Berg MD Chest X-Ray 09/24/16 1059 Signed Impressions: Service Date/Time: Saturday, September 24, 2016 11:14 - CONCLUSION: 1. Cardiomegaly. No acute pulmonary disease. Cornelio Isaac MD Ribs X-Ray 09/24/16 0000 Signed Impressions: Service Date/Time: Saturday, September 24, 2016 15:58 - CONCLUSION: No acute disease. In particular, no rib fractures on the left. Todd Cortes Jr., MD Objective Remarks General: No acute distress. Deaf. HEENT: NC, AT. Heart: Tachycardic. No murmur appreciated. Lungs: Clear to auscultation bilaterally. No wheezes, rales, or rhonchi. Breathing is nonlabored. Abdomen: Soft, nontender, obese. Musculoskeletal: Left sided tenderness upon palpation of upper back. Extremities: Trace to 1+ bilateral lower extremity edema with chronic venous stasis changes. Neuro: Alert and oriented, largely unintelligible speech. Psych: Mood and affect appropriate. Medications and IVs Current Medications Medications (Trade) Dose Ordered Sig/Blaire Route Start Time Stop Time Status Last Admin (NS Flush) 2 ml UNSCH PRN FLUSH 09/24/16 14:00 (NS Flush) 2 ml BID FLUSH 09/24/16 21:00 09/27/16 08:51 (Tylenol) 650 mg Q4H PRN PO 09/24/16 14:00 (Colace) 100 mg Q12H PO 09/24/16 14:00 09/27/16 03:23 (Senokot) 17.2 mg Q12H PRN PO 09/24/16 14:00 (Tylenol) 650 mg Q6H PRN PO 09/24/16 14:00 (Roxicodone) 10 mg Q4H PRN PO 09/24/16 14:00 09/27/16 08:50 (Morphine Inj) 4 mg Q3H PRN IV 09/24/16 14:00 (Roxicodone) 5 mg Q4H PRN PO 09/24/16 14:00 (Narcan Inj) 0.4 mg UNSCH PRN IV 09/24/16 14:00 (Norvasc) 5 mg DAILY PO 09/25/16 09:00 09/27/16 08:50 Gabapentin 200 mg 200 mg TID PO 09/24/16 18:00 09/27/16 08:51 (Rocephin Inj/NS Inj) 100 ml @ 200 mls/hr Q24H IV 09/25/16 15:00 09/26/16 14:01 (Oscal) 500 mg Q12HR PO 09/26/16 13:30 09/27/16 08:50 A/P Assessment and Plan Left sided chest pain/ Troponin elevation Following a fall. The pt does have an elevated troponin at 0.47. The chest pain is reproducible upon palpation. EKG without evidence of acute ischemia. CXR unremarkable. Rib x ray also negative for fracture. Appreciate cardiology consult. Concern for endocarditis. - pain control as needed with a bowel regimen. - repeat echo per cardiology. - telemetry. Sepsis/ bacteremia/ osteomyelitis Recent hospital stay for bacteremia as blood cultures were growing viridans strep. The pt was deemed a high risk for JUANITA by cardiology so JUANITA was deferred. The pt was discharged on ceftriaxone. He now has leukocytosis of 19 and was tachycardic and tachypneic on presentation. Improved. Appreciate infectious disease consult. Repeat MRI of the thoracic spine showed: Degenerative disc disease and interval progression of abnormal findings are T8-T9 concerning for discitis, osteomyelitis until proven otherwise. - Continue ceftriaxone 2 g IV daily. - follow repeat blood cultures. NGTD. - repeat echo ordered. - Neurosurgery following. - IR consult for bone biopsy. Plt transfusion ordered. V tach/ sinus pauses on recent admission Unable to place pacemaker s/t bacteremia. Stable at this time. - discontinue beta gabriella. - telemetry. - replete electrolytes as needed. Thrombocytopenia/ Anemia Thrombocytopenia likely secondary to cirrhosis. Hemoglobin similar to last admission. - Monitor labs and transfuse if indicated. Transfuse 3 units plts per IR for bone biopsy. DVT prophylaxis: SCDs. Chemical prophylaxis contraindicated. Discharge Planning Awaiting clinical improvement. Gualberto Weiss DO Sep 27, 2016 10:46
[2016-09-27] MEDS ORDERED: POLYETHYLENE GLYCOL 17 GM PKG PO ONE (11:00)
[2016-09-27] MEDS ORDERED: fentaNYL CITRATE 250 MCG/5 ML AMP ONE (15:12)
[2016-09-27] MEDS ORDERED: MIDAZOLAM HCL 5 MG/5 ML VIAL ONE (15:12)
--- NOTE | 2016-09-27 16:10 | PD.RAD ---
Post Procedure Progress Note Procedure Date: Sep 27, 2016 Supervising Radiologist: Rogerio Will Plan of Activity See PACS Report for procedural detail/treatment Biopsy Imaging Guidance: Fluoroscopy Side: Left Biopsy Procedure: Disc, Soft Tissue Site: Thoracic spine T8-9 disc Level: T8-9 Specimen: Fine Needle Aspirate Fluid Description: Bloody Rogerio Will MD Sep 27, 2016 16:09
[2016-09-27] MEDS: cefTRIAXone INJ 2,000 MG in SODIUM CHLORIDE 0.9% INJ 100 ML IV SCH (17:50)
[2016-09-28] VITALS: BP 112/79; PULSE 99; RESP 18; TEMP 97.7; O2SAT 95
[2016-09-28] MEDS: DOCUSATE SODIUM 100 MG CAP PO SCH ×2 (01:46→15:02)
[2016-09-28 04:00] VITALS: BP 119/79; PULSE 110; RESP 18; TEMP 98.1; O2SAT 96
[2016-09-28 08:00] VITALS: BP 117/67; PULSE 88; PULSE 94; RESP 20; TEMP 98.6; O2SAT 96
[2016-09-28] MEDS: GABAPENTIN 100 MG CAP PO SCH ×3 (08:54→17:35)
[2016-09-28] MEDS: amLODIPine BESYLATE 5 MG TAB PO SCH (08:54)
[2016-09-28] MEDS: CALCIUM CARBONATE 1.25 GM (CA 500 MG) TAB PO SCH ×2 (08:54→23:15)
[2016-09-28] MEDS: SODIUM CHLORIDE 0.9% FLUSH 5 ML FLUSH FLUSH SCH ×2 (08:57→21:00)
[2016-09-28 09:03] LABS: HEMATOCRIT 25.9 % (39.0-51.0); MEAN CELL VOLUME 103.6 FL (80.0-100.0); MEAN CORPUSCULAR HEMOGLOBIN 35.6 PG (27.0-34.0); MEAN CORPUSCULAR HGB CONC 34.3 % (32.0-36.0); PLATELET COUNT 76 TH/MM3 (150-450); RED CELL DISTRIBUTION WIDTH 18.2 % (11.6-17.2); WHITE BLOOD COUNT 9.4 TH/MM3 (4.0-11.0)
[2016-09-28 09:12] LABS: REVIEW FLAG FINAL
[2016-09-28 09:31] LABS: BICARBONATE 29.8 MEQ/L (21.0-32.0); MAGNESIUM 1.6 MG/DL (1.5-2.5); POTASSIUM 3.7 MEQ/L (3.5-5.1)
--- NOTE | 2016-09-28 09:34 | HHI.PR ---
Subjective Remarks In the chair. Patient says she is feeling better today, has no complaints. Says back pain is controlled by meds. No n/v/d/c. No fever or chills./ No cough. Objective Vitals Vital Signs Date Time Temp Pulse Resp B/P Pulse Ox O2 Delivery O2 Flow Rate FiO2 09/28/16 09:00 Room Air 09/28/16 08:00 98.6 94 20 117/67 96 09/28/16 04:00 98.1 110 18 119/79 96 09/28/16 00:00 97.7 99 18 112/79 95 09/27/16 22:15 Room Air 09/27/16 20:00 99.1 99 18 117/71 98 09/27/16 16:50 78 18 110/78 97 09/27/16 16:20 80 19 115/74 94 09/27/16 16:05 98.3 91 18 131/83 94 09/27/16 16:00 99.4 104 20 145/88 95 09/27/16 13:13 98.6 100 20 120/80 100 09/27/16 12:58 98.5 99 20 120/86 98 09/27/16 12:00 99.4 113 24 121/82 94 I/O 09/27/16 09/27/16 09/27/16 09/28/16 09/28/16 09/28/16 07:00 15:00 23:00 07:00 15:00 23:00 Intake Total 410 ml 240 ml 100 ml Output Total 300 ml Balance -300 ml 410 ml 240 ml 100 ml Intake Oral 240 ml 100 ml Platelets 410 ml Output Urine Total 300 ml # Voids 1 2 # Bowel Movements 1 0 Result Diagram: 09/26/16 0740 09/26/16 0741 Imaging Last Impressions Thoracic Spine MRI 09/26/16 0000 Signed Impressions: Service Date/Time: Monday, September 26, 2016 14:57 - CONCLUSION: 1. Degenerative disc disease and interval progression of abnormal findings are T8-T9 concerning for discitis, osteomyelitis until proven otherwise. Maninder Berg MD Lumbar Spine MRI 09/26/16 0000 Signed Impressions: Service Date/Time: Monday, September 26, 2016 14:57 - CONCLUSION: Multilevel degenerative changes are noted as above. Nonacute L1 and L2 compression deformities. Maninder Berg MD Abdomen/Pelvis CT 09/26/16 0000 Signed Impressions: Service Date/Time: Monday, September 26, 2016 16:33 - CONCLUSION: 1. Cirrhosis and portal hypertension. 2. Large bilateral effusions and consolidation. Maninder Berg MD Chest X-Ray 09/24/16 1059 Signed Impressions: Service Date/Time: Saturday, September 24, 2016 11:14 - CONCLUSION: 1. Cardiomegaly. No acute pulmonary disease. Cornelio Isaac MD Ribs X-Ray 09/24/16 0000 Signed Impressions: Service Date/Time: Saturday, September 24, 2016 15:58 - CONCLUSION: No acute disease. In particular, no rib fractures on the left. Todd Cortes Jr., MD Objective Remarks General: 66 yo male. Appears in no acute distress. Deaf. HEENT: NC, AT. Heart: Tachycardic. No murmur appreciated. Lungs: Clear to auscultation bilaterally. No wheezes, rales, or rhonchi. Breathing is nonlabored. Abdomen: Soft, nontender, obese. Musculoskeletal: Left sided tenderness upon palpation of upper back. Extremities: Trace to 1+ bilateral lower extremity edema with chronic venous stasis changes. Neuro: Alert and oriented, largely unintelligible speech. Psych: Mood and affect appropriate. A/P Assessment and Plan Left sided chest pain/ Troponin elevation Following a fall. The pt does have an elevated troponin at 0.47. The chest pain is reproducible upon palpation. EKG without evidence of acute ischemia. CXR unremarkable. Rib x ray also negative for fracture. Appreciate cardiology consult. Concern for endocarditis. Pain control as needed with a bowel regimen. Repeat echo per cardiology. Monitor on telemetry. Sepsis/ bacteremia/ osteomyelitis Recent hospital stay for bacteremia as blood cultures were growing viridans strep. The pt was deemed a high risk for JUANITA by cardiology so JUANITA was deferred. The pt was discharged on ceftriaxone. He now has leukocytosis of 19 and was tachycardic and tachypneic on presentation. Improved. Appreciate infectious disease consult. Repeat MRI of the thoracic spine showed: Degenerative disc disease and interval progression of abnormal findings are T8-T9 concerning for discitis, osteomyelitis until proven otherwise. Continue ceftriaxone 2 g IV daily. Follow repeat blood cultures. NGTD. Repeat echo ordered. Neurosurgery following. Received PLT transfusion. IR consult for bone biopsy, s/p biopsy Thoracic spine T8-9 disc 3/6 V tach/ sinus pauses on recent admission Unable to place pacemaker s/t bacteremia. Stable at this time. Discontinue beta gabriella. Monitor on telemetry. Replete electrolytes as needed. Thrombocytopenia/ Anemia Thrombocytopenia likely secondary to cirrhosis. Hemoglobin similar to last admission. Monitor labs and transfuse if indicated. Transfuse 3 units plts per IR for bone biopsy. DVT prophylaxis: SCDs. Chemical prophylaxis contraindicated. Discharge Planning Pending clinical improvement. Farzana Beverly MD Sep 28, 2016 09:34
--- NOTE | 2016-09-28 09:42 | RADRPT ---
EXAM DATE/TIME: 09/27/2016 14:57 [facility] COMPARISON: No previous studies available for comparison. INDICATIONS : Patient with a fluid collection in the disk space of T8-T9 in need of biopsy. MEDICAL HISTORY : Liver cirrhosis Coronary artery disease status post CABG x3 and cardiac stents Congestive heart failure Hypertension Atrial fibrillation Diabetes mellitus History of alcohol and drug abuse Possible endocarditis Herniated discs SURGICAL HISTORY : TAVR Coronary artery bypass graft x3 Cardiac stents Paracentesis ENCOUNTER: Initial ACUITY: 3 days PAIN SCORE: 6/10 LOCATION: Mid back FLUORO TIME: 12.1 minutes IMAGE SERIES: 5 SEDATION TIME: 35 minutes MEDICATION(S): 1.) 2 mg midazolam (Versed) IV 2.) 100 mcg fentanyl (Sublimaze) IV DEVICE(S): 1.) 20 gauge needle Core specimen(s) was obtained and submitted to laboratory for pathologic evaluation. PROCEDURE : 1. Fluoroscopically guided needle biopsy. 2. Conscious sedation with continuous EKG and Oximetry monitoring. The risks, benefits and alternatives to the procedure were explained and verbal and written consent w as obtained. The site was prepped in sterile fashion. Full sterile technique was used, including cap, mask, steri le gloves and gown and a large sterile sheet. Hand hygiene and 2% chlorhexidine and/or betadine/alco hol prep was utilized per protocol for cutaneous antisepsis. The skin and subcutaneous tissues were infiltrated with local anesthetic solution. With fluoroscopic guidance tissue and fluid samples were obtained from the T8-9 intervertebral disc a nd the left paraspinal soft tissues at the T8-9 level. Conscious sedation was performed with the prescribed dosages and duration as above in the presence of an independent trained radiology nurse to assist in the monitoring of the patient. EKG and oximetry remained stable throughout the procedure. CONCLUSION: Uncomplicated needle aspiration of the T8-9 disc and paraspinal soft tissue as above. Rogerio Will MD on September 28, 2016 at 9:38 Board Certified Radiologist. This report was verified electronically.
[2016-09-28 12:00] VITALS: BP 104/69; PULSE 76; RESP 18; TEMP 98.8; O2SAT 94
[2016-09-28] MEDS: cefTRIAXone INJ 2,000 MG in SODIUM CHLORIDE 0.9% INJ 100 ML IV SCH (15:02)
[2016-09-28 16:00] VITALS: BP 129/93; PULSE 99; RESP 20; TEMP 98.3; O2SAT 96
[2016-09-28 20:00] VITALS: BP 108/65; PULSE 97; RESP 18; TEMP 98.9; O2SAT 96
--- NOTE | 2016-09-28 23:55 | HHI.IDPN ---
Subjective Subjective Remarks back pain is better no fever MRI showed T 8/9 osteo, diskitis sp CT guided Antibiotics CFTX Allergies: Coded Allergies: Lisinopril (Verified Allergy, Intermediate, 09/18/16) Objective . Vital Signs Date Time Temp Pulse Resp B/P Pulse Ox O2 Delivery O2 Flow Rate FiO2 09/28/16 23:21 Room Air 09/28/16 20:00 98.9 97 18 108/65 96 09/28/16 16:00 98.3 99 20 129/93 96 09/28/16 12:00 98.8 76 18 104/69 94 09/28/16 09:00 Room Air 09/28/16 08:00 88 09/28/16 08:00 98.6 94 20 117/67 96 09/28/16 04:00 98.1 110 18 119/79 96 09/28/16 00:00 97.7 99 18 112/79 95 09/27/16 09/27/16 09/28/16 15:00 23:00 07:00 Intake Total 410 ml 240 ml 100 ml Balance 410 ml 240 ml 100 ml Intake Oral 240 ml 100 ml Platelets 410 ml # Voids 1 2 # Bowel Movements 1 0 . Laboratory Tests Test 09/28/16 08:13 White Blood Count 9.4 TH/MM3 Red Blood Count 2.50 MIL/MM3 Hemoglobin 8.9 GM/DL Hematocrit 25.9 % Mean Corpuscular Volume 103.6 FL Mean Corpuscular Hemoglobin 35.6 PG Mean Corpuscular Hemoglobin 34.3 % Concent Red Cell Distribution Width 18.2 % Platelet Count 76 TH/MM3 Mean Platelet Volume 8.2 FL Laboratory Tests Test 09/28/16 08:13 Sodium Level 135 MEQ/L Potassium Level 3.7 MEQ/L Chloride Level 101 MEQ/L Carbon Dioxide Level 29.8 MEQ/L Anion Gap 4 MEQ/L Blood Urea Nitrogen 12 MG/DL Creatinine 0.61 MG/DL Estimat Glomerular Filtration 133 ML/MIN Rate Random Glucose 95 MG/DL Calcium Level 7.8 MG/DL Magnesium Level 1.6 MG/DL Microbiology Date/Time Procedure Status Source Growth 09/27/16 15:51 Gram Stain - Final Resulted Fluid Other 09/27/16 15:51 Body Fluid Culture - Preliminary Resulted Fluid Other NO GROWTH IN 24 HOURS. Imaging Last Impressions Needle Biopsy X-Ray 09/27/16 0000 Signed Impressions: Service Date/Time: Tuesday, September 27, 2016 14:57 - CONCLUSION: Uncomplicated needle aspiration of the T8-9 disc and paraspinal soft tissue as above. Rogerio Will MD Thoracic Spine MRI 09/26/16 0000 Signed Impressions: Service Date/Time: Monday, September 26, 2016 14:57 - CONCLUSION: 1. Degenerative disc disease and interval progression of abnormal findings are T8-T9 concerning for discitis, osteomyelitis until proven otherwise. Maninder Berg MD Lumbar Spine MRI 09/26/16 0000 Signed Impressions: Service Date/Time: Monday, September 26, 2016 14:57 - CONCLUSION: Multilevel degenerative changes are noted as above. Nonacute L1 and L2 compression deformities. Maninder Berg MD Abdomen/Pelvis CT 09/26/16 0000 Signed Impressions: Service Date/Time: Monday, September 26, 2016 16:33 - CONCLUSION: 1. Cirrhosis and portal hypertension. 2. Large bilateral effusions and consolidation. Maninder Berg MD Chest X-Ray 09/24/16 1059 Signed Impressions: Service Date/Time: Saturday, September 24, 2016 11:14 - CONCLUSION: 1. Cardiomegaly. No acute pulmonary disease. Cornelio Isaac MD Ribs X-Ray 09/24/16 0000 Signed Impressions: Service Date/Time: Saturday, September 24, 2016 15:58 - CONCLUSION: No acute disease. In particular, no rib fractures on the left. Todd Cortes Jr., MD Physical Exam CONSTITUTIONAL/GENERAL: This is an aobese elderly patient, in no apparent distress. TUBES/LINES/DRAINS: PICC in place RUE - site OK SKIN: No jaundice, rashes, or lesions. Ecchymoses on upper extremities. Skin temperature appropriate. Not diaphoretic. EYES: Pupils equal and round and reactive. Extraocular motions intact. No scleral icterus. No injection or drainage. Fundi not examined. ENT: Pt is deaf at b/l Nose without bleeding or purulent drainage. Mucosae without visible erythema, exudates, masses, or lesions. poor dentition NECK: Trachea midline. Supple, nontender. No palpable thyroid enlargement or nodularity. CARDIOVASCULAR: Regular rate and rhythm without , gallops, or rubs. No JVD. Peripheral pulses symmetric. murmur 2/6 R upper sternal border, ? holosystolic RESPIRATORY/CHEST: Symmetric, unlabored respirations. Clear to auscultation. Breath sounds equal bilaterally. No wheezes, rales, or rhonchi. GASTROINTESTINAL: Abdomen soft, diffusely tender, nondistended. No hepato- splenomegaly, or palpable masses. No guarding. Bowel sounds present. MUSCULOSKELETAL: Extremities without clubbing, cyanosis, + trace edema. B/l chronic hyperpigmentation more prominent on the LLE No joint tenderness or effusion noted. No calf tenderness. No mottling or clubbing. BACK: less tender to palpation on L lumabar area NEUROLOGICAL: Awake and alert. Motor and sensory grossly within normal limits. Follows commands. Normal gait Assessment & Plan Remarks Sepsis, vir strep in the settings of TAVR for LIver cirrosis Mult med prob T8-9 osteo, diskitits, sp bx, cl so far negative - cont CFTX - fu clx untill final - if remain negative will cont CFTX for another 8 wks Nadine Wadsworth MD Sep 28, 2016 23:55
[2016-09-29] VITALS (7 sets, daily range): BP systolic 115–127; BP diastolic 75–87; PULSE 86–121; RESP 18–20; TEMP 98.4–98.8; O2SAT 92–97
[2016-09-29] MEDS: DOCUSATE SODIUM 100 MG CAP PO SCH ×2 (02:00→12:22)
[2016-09-29 06:52] LABS: AUTOMATED NEUTROPHIL # 7.8 TH/MM3 (1.8-7.7); BASOPHIL % 0.5 % (0.0-2.0); EOSINOPHIL % 0.5 % (0.0-4.0); HEMATOCRIT 25.8 % (39.0-51.0); LYMPH % 6.7 % (9.0-44.0); LYMPHOCYTE # 0.6 TH/MM3 (1.0-4.8); MEAN CELL VOLUME 103.4 FL (80.0-100.0); MEAN CORPUSCULAR HEMOGLOBIN 35.6 PG (27.0-34.0); MEAN CORPUSCULAR HGB CONC 34.4 % (32.0-36.0); MONO % 6.8 % (0.0-8.0); NEUT % 85.5 % (16.0-70.0); PLATELET COUNT 67 TH/MM3 (150-450); WHITE BLOOD COUNT 9.1 TH/MM3 (4.0-11.0)
[2016-09-29 06:59] LABS: HEMO FLAGS AUTO DIFF
[2016-09-29 07:21] LABS: BICARBONATE 29.8 MEQ/L (21.0-32.0); MAGNESIUM 1.6 MG/DL (1.5-2.5); POTASSIUM 3.7 MEQ/L (3.5-5.1)
[2016-09-29] MEDS: amLODIPine BESYLATE 5 MG TAB PO SCH (07:54)
[2016-09-29] MEDS: GABAPENTIN 100 MG CAP PO SCH ×3 (07:54→17:16)
[2016-09-29] MEDS: CALCIUM CARBONATE 1.25 GM (CA 500 MG) TAB PO SCH ×2 (07:54→22:32)
[2016-09-29] MEDS: SODIUM CHLORIDE 0.9% FLUSH 5 ML FLUSH FLUSH SCH ×2 (07:55→22:33)
[2016-09-29 08:13] LABS: KERATOCYTES OCC (NORMAL); PLATELET ESTIMATE SMEAR LOW (NORMAL); PLATELET MORPHOLOGY NORMAL (NORMAL); SCAN/DIFF AUTO DIFF CONFIRMED
--- NOTE | 2016-09-29 13:45 | HHI.PR ---
Subjective Remarks Patient in nad. Sign aws developer at bedside. No efevr or chills. Back pain is failry controlled by meds. No n/v/d/c. Satting well on room air. Says she is wheezing at times. Objective Vitals Vital Signs Date Time Temp Pulse Resp B/P Pulse Ox O2 Delivery O2 Flow Rate FiO2 09/29/16 08:10 100 09/29/16 08:10 Room Air 09/29/16 04:00 98.4 102 18 121/87 93 09/29/16 00:00 98.7 121 18 118/78 96 09/28/16 23:21 Room Air 09/28/16 20:00 98.9 97 18 108/65 96 09/28/16 16:00 98.3 99 20 129/93 96 I/O 09/28/16 09/28/16 09/28/16 09/29/16 09/29/16 09/29/16 07:00 15:00 23:00 07:00 15:00 23:00 Intake Total 100 ml 722 ml 240 ml 100 ml Balance 100 ml 722 ml 240 ml 100 ml Intake Oral 100 ml 720 ml 240 ml 100 ml IV Total 2 ml # Voids 2 4 1 2 # Bowel Movements 0 1 0 0 Result Diagram: 09/29/16 0637 09/29/16 0637 Imaging Last Impressions Needle Biopsy X-Ray 09/27/16 0000 Signed Impressions: Service Date/Time: Tuesday, September 27, 2016 14:57 - CONCLUSION: Uncomplicated needle aspiration of the T8-9 disc and paraspinal soft tissue as above. Rogerio Will MD Thoracic Spine MRI 09/26/16 0000 Signed Impressions: Service Date/Time: Monday, September 26, 2016 14:57 - CONCLUSION: 1. Degenerative disc disease and interval progression of abnormal findings are T8-T9 concerning for discitis, osteomyelitis until proven otherwise. Maninder Berg MD Lumbar Spine MRI 09/26/16 0000 Signed Impressions: Service Date/Time: Monday, September 26, 2016 14:57 - CONCLUSION: Multilevel degenerative changes are noted as above. Nonacute L1 and L2 compression deformities. Maninder Berg MD Abdomen/Pelvis CT 09/26/16 0000 Signed Impressions: Service Date/Time: Edward, September 26, 2016 16:33 - CONCLUSION: 1. Cirrhosis and portal hypertension. 2. Large bilateral effusions and consolidation. Maninder Berg MD Chest X-Ray 09/24/16 1059 Signed Impressions: Service Date/Time: Saturday, September 24, 2016 11:14 - CONCLUSION: 1. Cardiomegaly. No acute pulmonary disease. Cornelio Isaac MD Ribs X-Ray 09/24/16 0000 Signed Impressions: Service Date/Time: Saturday, September 24, 2016 15:58 - CONCLUSION: No acute disease. In particular, no rib fractures on the left. Todd Cortes Jr., MD Objective Remarks General: 66 yo male. Appears in no acute distress. Deaf. HEENT: NC, AT. Heart: Tachycardic. No murmur appreciated. Lungs: Clear to auscultation bilaterally. No wheezes, rales, or rhonchi. Breathing is nonlabored. Abdomen: Soft, nontender, obese. Musculoskeletal: Left sided tenderness upon palpation of upper back. Extremities: Trace to 1+ bilateral lower extremity edema with chronic venous stasis changes. Neuro: Alert and oriented, largely unintelligible speech. Psych: Mood and affect appropriate. A/P Assessment and Plan Left sided chest pain/ Troponin elevation Following a fall. The pt does have an elevated troponin at 0.47. The chest pain is reproducible upon palpation. EKG without evidence of acute ischemia. CXR unremarkable. Rib x ray also negative for fracture. Appreciate cardiology consult. Concern for endocarditis. Pain control as needed with a bowel regimen. Repeat echo per cardiology. Monitor on telemetry. Sepsis/ bacteremia/ osteomyelitis Recent hospital stay for bacteremia as blood cultures were growing viridans strep. The pt was deemed a high risk for JUANITA by cardiology so JUANITA was deferred. The pt was discharged on ceftriaxone. He now has leukocytosis of 19 and was tachycardic and tachypneic on presentation. Improved. Appreciate infectious disease consult. Repeat MRI of the thoracic spine showed: Degenerative disc disease and interval progression of abnormal findings are T8-T9 concerning for discitis, osteomyelitis until proven otherwise. Continue ceftriaxone 2 g IV daily. Follow repeat blood cultures. NGTD. Repeat echo ordered. Neurosurgery following. Received PLT transfusion. IR consult for bone biopsy, s/p biopsy Thoracic spine T8-9 disc 09/27. Fluid aspirated negative so far V tach/ sinus pauses on recent admission Unable to place pacemaker s/t bacteremia. Stable at this time. Discontinue beta gabriella. Monitor on telemetry. Replete electrolytes as needed. Thrombocytopenia/ Anemia Thrombocytopenia likely secondary to cirrhosis. Hemoglobin similar to last admission. Monitor labs and transfuse if indicated. Transfused 3 units plts per IR for bone biopsy. DVT prophylaxis: SCDs. Chemical prophylaxis contraindicated. Discharge Planning Pending improvement and clearance for DC by ID specialist. Farzana Beverly MD Sep 29, 2016 13:45
[2016-09-29] MEDS: cefTRIAXone INJ 2,000 MG in SODIUM CHLORIDE 0.9% INJ 100 ML IV SCH (15:18)
[2016-09-29] MEDS: METOPROLOL TARTRATE 25 MG TAB PO SCH (22:32)
[2016-09-30] VITALS: BP 113/67; PULSE 89; RESP 20; TEMP 98.5; O2SAT 93
[2016-09-30] MEDS: DOCUSATE SODIUM 100 MG CAP PO SCH ×2 (02:00→15:48)
[2016-09-30 04:00] VITALS: BP 116/58; PULSE 85; RESP 19; TEMP 98.3; O2SAT 94
[2016-09-30 08:01] VITALS: BP 123/63; PULSE 96; RESP 18; TEMP 98.3; O2SAT 92
[2016-09-30] MEDS: GABAPENTIN 100 MG CAP PO SCH ×2 (08:06→11:52)
[2016-09-30] MEDS: METOPROLOL TARTRATE 25 MG TAB PO SCH (08:06)
[2016-09-30] MEDS: CALCIUM CARBONATE 1.25 GM (CA 500 MG) TAB PO SCH (08:06)
[2016-09-30] MEDS: amLODIPine BESYLATE 5 MG TAB PO SCH (08:06)
[2016-09-30 08:07] VITALS: PULSE 100
[2016-09-30] MEDS: SODIUM CHLORIDE 0.9% FLUSH 5 ML FLUSH FLUSH SCH (08:07)
[2016-09-30] MEDS ORDERED: HYDR-3366 PO (11:11)
--- NOTE | 2016-09-30 11:13 | HHI.DCPOC ---
Discharge Care Plan Goals to Promote Your Health * To prevent worsening of your condition and complications * To maintain your health at the optimal level Directions to Meet Your Goals Take your medications as prescribed Follow your dietary instruction Follow activity as directed Keep your appointments as scheduled Take your immunizations and boosters as scheduled If your symptoms worsen call your PCP, if no PCP go to Urgent Care Center or Emergency Room Smoking is Dangerous to Your Health. Avoid second hand smoke Call the 24-hour hour crisis hotline for domestic abuse at Farzana Beverly MD Sep 30, 2016 11:13
[2016-09-30] MEDS ORDERED: ACETAMINOPHEN/HYDROcodone 325 MG/5 MG TAB PO PRN (11:15)
[2016-09-30] MEDS ORDERED: NALOXONE HCL 0.4 MG/ML AMP IV PRN (11:15)
[2016-09-30] MEDS: ACETAMINOPHEN/HYDROcodone 325 MG/10 MG TAB PO PRN ×2 (11:52→15:49)
[2016-09-30 12:00] VITALS: BP 119/69; PULSE 79; RESP 18; TEMP 98.4; O2SAT 96
--- NOTE | 2016-09-30 12:42 | EKG ---
Date Performed: 09/29/2016 Time Performed: 16:33:54 PTAGE: 66 years EKG: ATRIAL FIBRILLATION WITH RAPID VENTRICULAR RESPONSE POSSIBLE ANTERIOR MYOCARDIAL INFARCTION , OF INDETERMINATE AGE VENTRICULAR RATE IS FAST COMPARED TO THE PRIOR TRACING ABNORMAL ECG PREVIOUS TRACING : 09/24/2016 10.41 DOCTOR: Adelso Stack Interpretating Date/Time 09/30/2016 12:42:11
--- NOTE | 2016-09-30 13:39 | HHI.FF ---
Infusion Therapy Location of Infusion Therapy: Home Health Care IV Infusion Order Patient Information Patient Weight 118.004 kg Diagnosis: Diagnosis Diskitis, vertebral osteomyelitis Coded Allergies: Lisinopril (Verified Allergy, Intermediate, 09/18/16) Administer Medication Ceftriaxone 2 grams IV q 24 hours Start Treatment: Oct 01, 2016 Stop Treatment: Nov 19, 2016 Additional Information Venous access: PICC Line Additional Instructions [x] Peripheral flush and dressing changes per protocol [x] Implanted port and central sewer line repairer: * Implanted port: 10 ml Normal Saline followed by 5 ml Heparin 100 units/ml Heparin flush after each use and monthly to maintain. [] May leave port accessed during therapy. [] May leave peripheral site accessed for duration of therapy. [x] If patient has SOB or respiratory distress, check oxygen saturation. If less than 90% or clinical signs of respiratory distress, administer oxygen at 2 L/min. via nasal cannula and notify physician. [x] Anaphylaxis/Reaction orders: * Stop infusion. * Keep IV line open with saline flush. * Notify physician. * Monitor vital signs every 15 minutes until symptoms resolve. * Check Oxygen saturation; Oxygen at 2 L/min. via nasal cannula if less than 90% or clinical signs of respiratory distress. * Administer diphenhydramine (Benadryl) 25 mg IV STAT, (unless patient has received as pre-med). May repeat once, if necessary. * Solu-Cortef 250 mg IVP over 30-60 seconds, use 100 mg vials for each dissolution. * Epinephrine (1mg/1 ml) 0.3 mg subcutaneously or IVP now with any signs of respiratory distress. * Check with physician for new additional pre-med orders if patient is re- challenged or re-treated. [x] May remove PICC line when treatment complete, after confirming with Physician. [x] If the patient is admitted to the hospital, the ED, or transferred via [facility] , complete transfer form including medication reconciliation order sheet. Laboratory Tests Weekly Labs: CBC w/diff, Creatinine, LFT's (Hepatic function test), SED Rate Nadine Wadsworth MD Sep 30, 2016 13:39
--- NOTE | 2016-09-30 13:46 | HHI.PR ---
Addendum to Inpatient Note Additional Information disk clx neg - final Most likely culprit was the vir strep Will give 7 more weeks of CFTX to complete 8 wks of abx Pt can fu with Dr Jones upon dc for osteo/diskitis OK to dc home with home IV abx Nadine Wadsworth MD Sep 30, 2016 13:46
--- NOTE | 2016-09-30 13:54 | HHI.DS ---
Discharge Summary Admission Date Sep 24, 2016 at 13:07 Discharge Date: Sep 30, 2016 Admitting Diagnosis r/o sepsis, elevated trop (1) Cervical disc herniation ICD Code: M50.20 Diagnosis: Principal (2) Diskitis ICD Code: M46.40 Diagnosis: Principal (3) Bacteremia ICD Code: R78.81 Diagnosis: Principal (4) Glaucoma ICD Code: H40.9 (5) Alcoholic cirrhosis of liver with ascites ICD Code: K70.31 Diagnosis: Secondary (6) Pancytopenia ICD Code: D61.818 Diagnosis: Secondary (7) Atrial fibrillation with RVR ICD Code: I48.91 Diagnosis: Secondary (8) GI bleeding ICD Code: K92.2 Diagnosis: Secondary (9) Transaminitis ICD Code: R74.0 Diagnosis: Secondary (10) Traumatic rhabdomyolysis ICD Code: T79.6XXA Diagnosis: Secondary (11) Coagulopathy ICD Code: D68.9 Diagnosis: Secondary (12) Thrombocytopenia ICD Code: D69.6 Diagnosis: Secondary (13) DTs (delirium tremens) ICD Code: F10.231 Diagnosis: Secondary (14) Moderate protein-calorie malnutrition ICD Code: E44.0 Diagnosis: Secondary (15) Coronary artery disease ICD Code: I25.10 Diagnosis: Secondary (16) Aortic stenosis ICD Code: I35.0 Diagnosis: Secondary (17) Deafness ICD Code: H91.90 Diagnosis: Secondary (18) Hypertension ICD Code: I10 Diagnosis: Secondary (19) Generalized weakness ICD Code: R53.1 Diagnosis: Secondary (20) Chronic low back pain ICD Code: M54.5 Diagnosis: Secondary (21) Bleeding from PICC line ICD Code: T82.838A Diagnosis: Principal (22) Cirrhosis ICD Code: K74.60 Diagnosis: Secondary (23) Thrombocytopenia ICD Code: D69.6 Diagnosis: Secondary (24) Sepsis ICD Code: A41.9 Diagnosis: Secondary (25) NSVT (nonsustained ventricular tachycardia) ICD Code: I47.2 Diagnosis: Secondary Procedures none Brief History - From Admission The patient is a 66-year-old male who was recently discharged from the hospital after treatment for bacteremia and irregular heart rhythms who is presenting to the hospital after a mechanical fall. The patient says she normally ambulates with a walker but he fell down and hurt the left side of his chest. He did not hit his head or lose consciousness. Since then he has been having significant pain in the left side of his chest and he believes he might have broken a rib. He says the pain medications are working. The patient does say that the chest pain is worse with deep breathing. The pain is sharp in nature. He wants to know what is wrong with him. He says he was discharged from the hospital recently on antibiotics but he doesn't believe antibiotics are working. He says he feels chills regularly. He sometimes feels like he has a fever although he hasn't measured it. He says he has been eating well. He denies shortness of breath. He denies any sweating. CBC/BMP: 09/29/16 0637 09/29/16 0637 Significant Findings Laboratory Tests Test 09/28/16 09/29/16 08:13 06:37 Red Blood Count 2.50 MIL/MM3 2.50 MIL/MM3 (4.50-5.90) (4.50-5.90) Hemoglobin 8.9 GM/DL 8.9 GM/DL (13.0-17.0) (13.0-17.0) Hematocrit 25.9 % 25.8 % (39.0-51.0) (39.0-51.0) Mean Corpuscular Volume 103.6 FL 103.4 FL (80.0-100.0) (80.0-100.0) Mean Corpuscular Hemoglobin 35.6 PG 35.6 PG (27.0-34.0) (27.0-34.0) Red Cell Distribution Width 18.2 % 18.0 % (11.6-17.2) (11.6-17.2) Platelet Count 76 TH/MM3 67 TH/MM3 (150-450) (150-450) Sodium Level 135 MEQ/L (136-145) Anion Gap 4 MEQ/L (5-15) Calcium Level 7.8 MG/DL 8.1 MG/DL (8.5-10.1) (8.5-10.1) Neutrophils (%) (Auto) 85.5 % (16.0-70.0) Lymphocytes (%) (Auto) 6.7 % (9.0-44.0) Neutrophils # (Auto) 7.8 TH/MM3 (1.8-7.7) Lymphocytes # (Auto) 0.6 TH/MM3 (1.0-4.8) Platelet Estimate LOW (NORMAL) Creatinine 0.56 MG/DL (0.60-1.30) Imaging Last Impressions Needle Biopsy X-Ray 09/27/16 0000 Signed Impressions: Service Date/Time: Tuesday, September 27, 2016 14:57 - CONCLUSION: Uncomplicated needle aspiration of the T8-9 disc and paraspinal soft tissue as above. Rogerio Will MD Thoracic Spine MRI 09/26/16 0000 Signed Impressions: Service Date/Time: Monday, September 26, 2016 14:57 - CONCLUSION: 1. Degenerative disc disease and interval progression of abnormal findings are T8-T9 concerning for discitis, osteomyelitis until proven otherwise. Maninder Berg MD Lumbar Spine MRI 09/26/16 0000 Signed Impressions: Service Date/Time: Monday, September 26, 2016 14:57 - CONCLUSION: Multilevel degenerative changes are noted as above. Nonacute L1 and L2 compression deformities. Maninder Berg MD Abdomen/Pelvis CT 09/26/16 0000 Signed Impressions: Service Date/Time: Monday, September 26, 2016 16:33 - CONCLUSION: 1. Cirrhosis and portal hypertension. 2. Large bilateral effusions and consolidation. Maninder Berg MD Chest X-Ray 09/24/16 1059 Signed Impressions: Service Date/Time: Saturday, September 24, 2016 11:14 - CONCLUSION: 1. Cardiomegaly. No acute pulmonary disease. Cornelio Isaac MD Ribs X-Ray 09/24/16 0000 Signed Impressions: Service Date/Time: Saturday, September 24, 2016 15:58 - CONCLUSION: No acute disease. In particular, no rib fractures on the left. Todd Cortes Jr., MD PE at Discharge General: 66 yo male. Appears in no acute distress. Deaf. HEENT: NC, AT. Heart: Tachycardic. No murmur appreciated. Lungs: Clear to auscultation bilaterally. No wheezes, rales, or rhonchi. Breathing is nonlabored. Abdomen: Soft, nontender, obese. Musculoskeletal: Left sided tenderness upon palpation of upper back. Extremities: Trace to 1+ bilateral lower extremity edema with chronic venous stasis changes. Neuro: Alert and oriented, largely unintelligible speech. Psych: Mood and affect appropriate. Pt update on day of discharge In bed says his pain is better controlled on meds that he is taking at home. He is ambulating in the hallways. No n/v/d. Denies fever or chills. Hospital Course Left sided chest pain/ Troponin elevation Following a fall. The pt does have an elevated troponin at 0.47. The chest pain is reproducible upon palpation. EKG without evidence of acute ischemia. CXR unremarkable. Rib x ray also negative for fracture. Appreciate cardiology consult. Concern for endocarditis. Pain control as needed with a bowel regimen. Repeat echo per cardiology. Monitor on telemetry. Sepsis/ bacteremia/ osteomyelitis Recent hospital stay for bacteremia as blood cultures were growing viridans strep. The pt was deemed a high risk for JUANITA by cardiology so JUANITA was deferred. The pt was discharged on ceftriaxone. He now has leukocytosis of 19 and was tachycardic and tachypneic on presentation. Improved. Appreciate infectious disease consult. Repeat MRI of the thoracic spine showed: Degenerative disc disease and interval progression of abnormal findings are T8-T9 concerning for discitis, osteomyelitis until proven otherwise. Continue ceftriaxone 2 g IV daily. Follow repeat blood cultures. NGTD. Repeat echo ordered. Neurosurgery following. Received PLT transfusion. IR consult for bone biopsy, s/p biopsy Thoracic spine T8-9 disc /. Fluid aspirated negative so far Most likely culprit was the vir strep per ID, appreciate recommendations Give 7 more weeks of CFTX to complete 8 wks of abx Pt can fu with Dr Jones upon dc for osteo/diskitis OK to dc home with home IV abx per ID. Infusion medication paper filled out by ID specialist Dr Carlee Cardenas tach/ sinus pauses on recent admission Unable to place pacemaker s/t bacteremia. Stable at this time. Discontinue beta gabriella. Monitor on telemetry. Replete electrolytes as needed. Noted with tachycardia while walking with PT. His HR in 110 . Restart BB metoprolol 25 mg po bid . Thrombocytopenia/ Anemia Thrombocytopenia likely secondary to cirrhosis. Hemoglobin similar to last admission. Monitor labs and transfuse if indicated. Transfused 3 units plts per IR for bone biopsy. DVT prophylaxis: SCDs. Chemical prophylaxis contraindicated. Improved. DC home in stable condition to follow up as OP with PCP and consultants. Pt Condition on Discharge: Stable Discharge Disposition: Disch w/ Home Health Serv Discharge Time: > 30 minutes Discharge Instructions DIET: Follow Instructions for: Heart Healthy Diet Activities you can perform: Regular-No Restrictions Follow up Referrals: Cardiology - 1 Week Infectious Disease - 1 Week with Daysi Alcala MD Neurosurgery - 1 Week with Sreedhar Jones MD PCP Follow-up - 3-5 Days Continued Medications: Amlodipine (Norvasc) 5 Mg Tab 5 MG PO DAILY Blood Pressure Management #30 Ref 0 TAB Furosemide (Lasix) 40 Mg Tab 40 MG PO DAILY #30 Ref 0 TAB Gabapentin (Gabapentin) 100 Mg Cap 200 MG PO TID . #90 CAP Hydrocodone-Acetaminophen (Kenvir) 10-325 Mg Tab 1 TAB PO TID PRN PAIN #10 Ref 0 TAB (This prescription has been renewed) Metoprolol Tartrate (Metoprolol Tartrate) 25 Mg Tab 25 MG PO BID #60 Ref 0 TAB Farzana Beverly MD Sep 30, 2016 13:54
[2016-09-30] MEDS ORDERED: COLA100C3 PO (14:02)
--- NOTE | 2016-09-30 14:31 | HHI.FF ---
Face to Face Verification Diagnosis: (1) Chronic diastolic congestive heart failure (2) New onset atrial fibrillation (3) Encephalopathy acute (4) Stenosis, cervical spine (5) Atrial fibrillation (6) Coronary artery disease (7) Aortic stenosis (8) Bacteremia (9) Cirrhosis (10) Diskitis (11) Pancytopenia (12) Cervical disc herniation (13) Alcoholic cirrhosis of liver with ascites (14) NSVT (nonsustained ventricular tachycardia) (15) Bleeding from PICC line (16) Traumatic rhabdomyolysis Physical Therapy Order: Evaluate and Treat Home Health Nursing Order: Medical education Signs/symptoms of disease process Medication education-adverse effect Nursing assessment with vital signs IV medication administration I have seen patient Dallas Stovall on 09/30/16. My clinical findings support the need for the requested home health care services because: Ltd mobility - disease progression I certify that my clinical findings support that this patient is homebound because: Post-op weakness Unsteady gait/balance Farzana Beverly MD Sep 30, 2016 14:31
[2016-09-30] MEDS: cefTRIAXone INJ 2,000 MG in SODIUM CHLORIDE 0.9% INJ 100 ML IV SCH (15:49)
--- NOTE | 2016-09-30 15:51 | RADRPT ---
EXAM DATE/TIME: 09/30/2016 15:09 [facility] COMPARISON: CHEST SINGLE AP, September 24, 2016, 11:14. INDICATIONS : Post overwire PICC placement. MEDICAL HISTORY : Myocardial infarction. SURGICAL HISTORY : CABG. ENCOUNTER: Subsequent ACUITY: 2 days PAIN SCORE: 8/10 LOCATION: Bilateral chest FINDINGS: A right upper extremity PICC line has been inserted. Its tip is directed into the right jugular syste m. Increasing density is seen in throughout the left lung. Heart remains moderately enlarged. CONCLUSION: Status post PICC replacement with tip of the catheter extending into the jugular system. Increasing left lung density. Cardiomegaly; unchanged. Rogerio Will MD on September 30, 2016 at 15:48 Board Certified Radiologist. This report was verified electronically.
== END 2016-09-30 18:36 | disposition home health service (06) | DRG 872 ==
LOC: NEPE 09:44 → NEDA 13:07 → N04A 15:40
PROVIDERS: ADMIT Hospitalist; ATTEND Hospitalist
PROC: 0RB93ZX Excision of Thoracic Vertebral Disc, Percutaneous Approach, Diagnostic (ICD-10-PCS; principal; 2016-09-27)
PROC: 6A550Z2 Pheresis of Platelets, Single (ICD-10-PCS; 2016-09-27)
DX: A41.9 Sepsis, unspecified organism (principal); D68.4 Acquired coagulation factor deficiency; D61.818 Other pancytopenia; F10.231 Alcohol dependence with withdrawal delirium; E44.0 Moderate protein-calorie malnutrition; I48.2 Chronic atrial fibrillation; I38 Endocarditis, valve unspecified; I85.00 Esophageal varices without bleeding; R00.1 Bradycardia, unspecified; I10 Essential (primary) hypertension; M46.24 Osteomyelitis of vertebra, thoracic region; K92.2 Gastrointestinal hemorrhage, unspecified; T82.838A Hemorrhage due to vascular prosthetic devices, implants and grafts, initial encounter; I50.9 Heart failure, unspecified; K70.31 Alcoholic cirrhosis of liver with ascites; M46.44 Discitis, unspecified, thoracic region; M51.34 Other intervertebral disc degeneration, thoracic region; M50.20 Other cervical disc displacement, unspecified cervical region; R07.89 Other chest pain; I25.10 Atherosclerotic heart disease of native coronary artery without angina pectoris; N28.1 Cyst of kidney, acquired; E11.9 Type 2 diabetes mellitus without complications; F17.200 Nicotine dependence, unspecified, uncomplicated; H91.8X3 Other specified hearing loss, bilateral; M19.90 Unspecified osteoarthritis, unspecified site; J45.909 Unspecified asthma, uncomplicated; R74.8 Abnormal levels of other serum enzymes; H40.9 Unspecified glaucoma; Z79.01 Long term (current) use of anticoagulants; I87.8 Other specified disorders of veins; Z95.1 Presence of aortocoronary bypass graft; Z95.2 Presence of prosthetic heart valve; Z95.5 Presence of coronary angioplasty implant and graft; Z86.73 Personal history of transient ischemic attack (TIA), and cerebral infarction without residual deficits; I25.2 Old myocardial infarction; G89.29 Other chronic pain; M54.5 Low back pain; Y83.8 Other surgical procedures as the cause of abnormal reaction of the patient, or of later complication, without mention of misadventure at the time of the procedure; T79.6XXA Traumatic ischemia of muscle, initial encounter; W19.XXXA Unspecified fall, initial encounter
CPT/HCPCS: 20225; 36430; 71010; 71101; 72146; 72148; 74176; 76937; 77002; 80048; 80076; 81001; 82550; 83605; 83690; 83735; 84155; 84484; 85007; 85025; 85027; 85610; 85730; 86965; 87040; 87070; 87205; 93005; 96374; 99152; 99153; J0610; J0696; J2250; J2270; J2543; J3010; J3370; J3475; J7030; J7040; J7050; P9035; Q9963

== ENCOUNTER 2016-10-12 13:37 | Observation (INO) | payer OTHER ==
[~2016-10-12 13:37] MED LIST changes: -ASPI1TAB69 PO; +COLA100C3 PO
[2016-10-12 13:40] VITALS: BP 121/72; PULSE 90; RESP 14; TEMP 98.1; O2SAT 100
--- NOTE | 2016-10-12 16:07 | PD ---
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 Patient has PMH of CAD with previous CABG, CHF , aVR/TAVR, DM, A. fib, alcohol/tobacco abuse and cirrhosis. According to medical record, the patient has a PICC line for IV antibiotics for bacteremia. 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 He denies any other complaints at this time. He believes that the line was dislodged this morning. PFSH Past Medical History Hx Anticoagulant Therapy: Yes Arthritis: Yes Asthma: Yes Blood Disorders: Yes (Pt Commented he has thin blood ) Heart Rhythm Problems: Yes (Hx AFib RVR ) Cancer: No Cardiac Catheterization: Yes Cardiovascular Problems: Yes (2004) High Cholesterol: No Chemotherapy: No Chest Pain: Yes Congestive Heart Failure: Yes Cerebrovascular Accident: Yes (2004) Coronary Artery Disease: Yes Diabetes: Yes (?) Diminished Hearing: Yes (DEAF) Endocrine: No Gastrointestinal Disorders: Yes (Chirrosis of the Liver) Glaucoma: Yes Genitourinary: No Hypertension: Yes Immune Disorder: No Implanted Vascular Access Dvce: Yes Musculoskeletal: Yes (Arthritis ) Neurologic: No Psychiatric: No Reproductive: No Respiratory: Yes Immunizations Current: Yes Myocardial Infarction: Yes Pneumonia: Yes Radiation Therapy: No Sickle Cell Disease: No Past Surgical History Abdominal Surgery: Yes (paracentesis) Appendectomy: Yes Cardiac Surgery: Yes (VALVE REPLACEMENT, CABG x3 ) Coronary Stent: Yes Ear Surgery: No Eye Surgery: No Genitourinary Surgery: No Gynecologic Surgery: No Neurologic Surgery: No Oral Surgery: No Thoracic Surgery: No Tonsillectomy: Yes Other Surgery: Yes (Paracentesis) Social History Alcohol Use: No Tobacco Use: No Substance Use: No (HX OF DRUG AND ALCOHOL ABUSE) Allergies-Medications (Allergen,Severity, Reaction): Coded Allergies: Lisinopril (Verified Allergy, Intermediate, 10/12/16) Reported Meds & Prescriptions Reported Meds & Active Scripts Active [place]ace (Docusate Sodium) 100 Mg Cap 100 Mg PO BID PRN [place] (Hydrocodone-Acetaminophen) 10-325 Mg Tab 1 Tab PO TID PRN Norvasc (Amlodipine Besylate) 5 Mg Tab 5 Mg PO DAILY Metoprolol Tartrate 25 Mg Tab 25 Mg PO BID Lasix (Furosemide) 40 Mg Tab 40 Mg PO DAILY Gabapentin 100 Mg Cap 200 Mg PO TID Review of Systems Except as stated in HPI: all other systems reviewed are Neg Physical Exam Narrative GENERAL: Well-developed well-nourished male patient, ambulatory. Afebrile. SKIN: Warm and dry. PICC line noted to right upper extremity. HEAD: Normocephalic. Atraumatic. EYES: No scleral icterus. No injection or drainage. NECK: Supple, trachea midline. No JVD or lymphadenopathy. CARDIOVASCULAR: Regular rate and rhythm without murmurs, gallops, or rubs. RESPIRATORY: Breath sounds equal bilaterally. No accessory muscle use. Lungs sounds clear to auscultation MUSCULOSKELETAL: No cyanosis, or edema. BACK: Nontender without obvious deformity. No CVA tenderness. Data Data Last Documented VS Vital Signs Date Time Temp Pulse Resp B/P Pulse Ox O2 Delivery O2 Flow Rate FiO2 10/12/16 13:40 98.1 90 14 121/72 100 Room Air Orders Chest, Single Ap (10/12/16 ) Vascular Access Team Consult PRN (10/12/16 18:57) Complete Blood Count With Diff (10/12/16 19:27) Basic Metabolic Panel (Bmp) (10/12/16 19:27) MDM Medical Decision Making Medical Screen Exam Complete: Yes Emergency Medical Condition: Yes Medical Record Reviewed: Yes Differential Diagnosis PICC line dislodgment versus working PICC line versus other Narrative Course 66-year-old male presents to the emergency department concerned that his PICC line was dislodged this morning. He denies any other complaints. Chest x-ray is ordered and pending to verify PICC line placement. Workup is initiated in triage. Once a medical bed becomes available, patient will be transferred and care assumed by that provider. Kallie Sauceda Oct 12, 2016 16:06
--- NOTE | 2016-10-12 17:26 | RADRPT ---
EXAM DATE/TIME: 10/12/2016 16:22 [facility] COMPARISON: CHEST SINGLE AP, September 30, 2016, 15:09. INDICATIONS : Evaluate position of PICC line, patient believes PICC line may have been pulled out this morning and several inches are visible at site MEDICAL HISTORY : Deaf SURGICAL HISTORY : Unobtainable ENCOUNTER: Initial ACUITY: 1 day PAIN SCORE: Non-responsive. LOCATION: Right chest FINDINGS: The heart is enlarged. The pulmonary vascular pattern is normal. The lungs are essentially clear. Degenerative changes and scoliosis of the thoracic spine are noted. A right-sided PICC line has its tip in the expected region of the axillary vein. CONCLUSION: 1. Cardiomegaly. 2. No focal alveolar consolidation or pulmonary edema. 3. Degenerative changes and scoliosis of the thoracic spine. 4. Right-sided PICC line has its tip in the expected region of the right axillary vein. Alexandr Oakley MD on October 12, 2016 at 17:21 Board Certified Radiologist. This report was verified electronically.
--- NOTE | 2016-10-12 19:39 | PD ---
Physical Exam Date Seen by Provider: Oct 12, 2016 Time Seen by Provider: 19:35 Narrative 66-year-old male that presents to the ED for evaluation of PICC line that fell off. Patient was initially seen by Kallie RITCHIE. Please refer to her note. Case was signed out to me pending x-ray and patient being moved from triage area to medical bed. Data Data Last Documented VS Vital Signs Date Time Temp Pulse Resp B/P Pulse Ox O2 Delivery O2 Flow Rate FiO2 10/12/16 13:40 98.1 90 14 121/72 100 Room Air Orders Chest, Single Ap (10/12/16 ) Vascular Access Team Consult PRN (10/12/16 18:57) Complete Blood Count With Diff (10/12/16 19:27) Basic Metabolic Panel (Bmp) (10/12/16 19:27) Admit Order (Ed Use Only) (10/12/16 19:34) [facility] Medical Record Reviewed: Yes Supervised Visit with BERTA: No Interpretation(s) CXR shows dislodgement Differential Diagnosis Bacteremia versus PICC line displacement versus medical advice issue Narrative Course 66-year-old male that presents to the ED for evaluation of PICC line displacement. Patient was properly examined and was found to have signs and symptoms consistent with a PICC line displacement. Patient was initially seen by Kallie RITCHIE. A consult was placed to vascular access an unfortunate was informed that after 5:30 they do not put any new PICC line's secondary to risk for emboli and noone here to help if this happens. Because of this decision was made to admit the patient and started an IV and give him his dose of ceftriaxone. Patient was agreeable with this plan. Patient was admitted to Dr. Gaspar who agrees to admission. Patient was given ceftriaxone through a peripheral line and will have consult to IR. Diagnosis Primary Impression: Bacteremia Admitting Information Admitting Physician Requests: Observation Carlos Lane Oct 12, 2016 19:39
[2016-10-12 19:43] LABS: AUTOMATED NEUTROPHIL # 7.6 TH/MM3 (1.8-7.7); BASOPHIL % 0.4 % (0.0-2.0); EOSINOPHIL # 0.1 TH/MM3 (0-0.4); EOSINOPHIL % 0.9 % (0.0-4.0); HEMATOCRIT 29.6 % (39.0-51.0); LYMPH % 9.1 % (9.0-44.0); LYMPHOCYTE # 0.8 TH/MM3 (1.0-4.8); MEAN CELL VOLUME 104.3 FL (80.0-100.0); MEAN CORPUSCULAR HEMOGLOBIN 35.6 PG (27.0-34.0); MEAN CORPUSCULAR HGB CONC 34.2 % (32.0-36.0); MONO % 6.6 % (0.0-8.0); PLATELET COUNT 61 TH/MM3 (150-450); RED BLOOD COUNT 2.83 MIL/MM3 (4.50-5.90); RED CELL DISTRIBUTION WIDTH 16.9 % (11.6-17.2); WHITE BLOOD COUNT 9.2 TH/MM3 (4.0-11.0)
[2016-10-12 19:44] LABS: HEMO FLAGS AUTO DIFF
[2016-10-12] MEDS ORDERED: cefTRIAXone INJ 2,000 MG in SODIUM CHLORIDE 0.9% INJ 100 ML IV ONE (19:45)
[2016-10-12] MEDS ORDERED: NALOXONE HCL 0.4 MG/ML AMP IV PRN (19:45)
[2016-10-12] MEDS ORDERED: SODIUM CHLORIDE 0.9% FLUSH 10 ML FLUSH IV FLUSH PRN (19:45)
[2016-10-12 20:00] LABS: BICARBONATE 29.5 MEQ/L (21.0-32.0)
[2016-10-12 20:07] VITALS: BP 105/68; PULSE 99; RESP 17; O2SAT 100
[2016-10-12 20:46] VITALS: BP 120/62; PULSE 89; RESP 17; O2SAT 98
[2016-10-12] MEDS: SODIUM CHLORIDE 0.9% FLUSH 10 ML FLUSH IV FLUSH SCH (20:59)
[2016-10-12 21:21] LABS: PLATELET ESTIMATE SMEAR LOW (NORMAL); PLATELET MORPHOLOGY NORMAL (NORMAL); SCAN/DIFF AUTO DIFF CONFIRMED
--- NOTE | 2016-10-12 22:09 | HHI.HP ---
[facility] Service [facility] Primary Care Physician Non-Staff Admission Diagnosis bacteremia, Picc line came off Diagnoses: (1) Bacteremia (2) Needs peripherally inserted central catheter (PICC) (3) Anemia (4) Hypokalemia Chief Complaint: PICC line came out Travel History International Travel<30 Days: No Contact w/Intl Traveler <30 Da: No Traveled to Known Affected Are: No History of Present Illness Mr. Stovall is a 66 year-old male who is legally deaf in the past medical history of liver cirrhosis, coronary artery disease, myocardial infarction status post CABG 3 and cardiac stents, congestive heart failure, heart valve replacement, hypertension, atrial fibrillation with rapid ventricular response, diabetes mellitus, and history of alcohol and drug abuse who presented to the ER complaining that his PICC line got dislodged. He is on Ceftriaxone 2 gm IV daily until 11/19 for strep viridans bacteremia diagnosed here in August. A chest x-ray was done initially that shows "right sided PICC line has it's tip in the expected region of the right axillary vein" (image personally reviewed and agree with findings). The original ER provider signed out to an oncoming provider. The chest x-ray result is not mentioned in second provider report - initial provider indicates that results are pending. According to the [employer], the patient's PICC line was in on presentation but was removed in the ER sometime after the initial chest x-ray was done. We will repeat the CXR to verify that the PICC line has been removed and that there isn't a broken off portion of the PICC remaining in the patient. Unable to discuss with original providers as they had left for the day. The patient is seen in the CDU. He states "my PICC came out". He states that he was moving his arms and cutting his hair at which times he PICC line had come out. He wasn't sure whether the whole PICC line came out only part of it came out. Apart from that, patient denies any other symptoms. Specifically, He denies fever, nausea, vomiting, and diarrhea. He complains of chronic urination with no recent increase. He reports chronic back pain. The patient states that his ex- went back to [place] and he has a daughter and three granddaughters here to help him. He requires a cane for ambulation. . Review of Systems Except as stated in HPI: all other systems reviewed are Neg Past Family Social History Past Medical History Liver cirrhosis, coronary artery disease, myocardial infarction status post CABG 3 and cardiac stents, congestive heart failure, heart valve replacement, hypertension, atrial fibrillation with rapid ventricular response, diabetes mellitus, and history of alcohol and drug abuse . Past Surgical History Coronary artery bypass graft 3 Cardiac stents Paracentesis . Reported Medications Reported Meds & Active Scripts Active [place] (Hydrocodone-Acetaminophen) 10-325 Mg Tab 1 Tab PO TID PRN Norvasc (Amlodipine Besylate) 5 Mg Tab 5 Mg PO DAILY Metoprolol Tartrate 25 Mg Tab 25 Mg PO BID Gabapentin 100 Mg Cap 200 Mg PO TID Allergies: Coded Allergies: Lisinopril (Verified Allergy, Intermediate, 10/12/16) Active Ordered Medications Current Medications Sodium Chloride (NS Flush) 2 ml UNSCH PRN IV FLUSH FLUSH AFTER USING IV ACCESS ; Start 10/12/16 at 19:45 Sodium Chloride (NS Flush) 2 ml BID IV FLUSH ; Start 10/12/16 at 21:00 Naloxone HCl 0.4 mg 0.4 mg UNSCH PRN IV SEE LABEL COMMENTS; Start 10/12/16 at 19:45 Ceftriaxone Sodium/Sodium Chloride (Rocephin Inj/NS Inj) 100 ml @ 200 mls/hr ONCE ONCE IV Last administered on 10/12/16t 19:59; Start 10/12/16 at 19:45; Stop 10/12/16 at 20:14; Status DC Potassium Bicarb/ Potassium Chloride 50 meq 50 meq ONCE ONCE PO Last administered on 10/12/16t 23:20; Start 10/12/16 at 23:00; Stop 10/12/16 at 23:01 ; Status DC Ceftriaxone Sodium 2000 mg/ Sodium Chloride 100 ml @ 200 mls/hr Q24H IV ; Start 10/12/16 at 23:30; Stop 10/12/16 at 23:30; Status DC Ceftriaxone Sodium/Sodium Chloride (Rocephin Inj/NS Inj) 100 ml @ 200 mls/hr Q24H IV ; Start 10/13/16 at 20:00 . Family History Father with alcoholism . Social History Alcohol: has not been drinking for 8 or 9 months, prior abuse of alcohol Tobacco: denies . Physical Exam Vital Signs Vital Signs Date Time Temp Pulse Resp B/P Pulse Ox O2 Delivery O2 Flow Rate FiO2 10/12/16 20:46 89 17 120/62 98 Room Air 10/12/16 20:07 99 17 105/68 100 Room Air 10/12/16 19:59 96 20 100 Room Air 10/12/16 13:40 98.1 90 14 121/72 100 Room Air Physical Exam GENERAL: This is a hearing-impaired male patient, in no apparent distress. SKIN: No rashes, ecchymoses or lesions. Cool and dry. No PICC line seen - right arm. HEAD: Atraumatic. Normocephalic. EYES: No scleral icterus. No injection or drainage. ENT: Nose without bleeding, purulent drainage. Hearing impaired. NECK: Trachea midline. No JVD or lymphadenopathy. CARDIOVASCULAR: Regular rate and rhythm without murmurs, gallops, or rubs. 1+ pitting edema from below knees to ankles. RESPIRATORY: Clear to auscultation. Breath sounds equal bilaterally. No wheezes , rales, or rhonchi. GASTROINTESTINAL: Abdomen soft, non-tender, nondistended. No guarding. MUSCULOSKELETAL: Extremities without clubbing, cyanosis, or edema. No calf tenderness. NEUROLOGICAL: Awake and alert; able to read lips well. Motor and sensory grossly within normal limits. Normal speech. . Laboratory Laboratory Tests Test 10/12/16 19:35 White Blood Count 9.2 Red Blood Count 2.83 Hemoglobin 10.1 Hematocrit 29.6 Mean Corpuscular Volume 104.3 Mean Corpuscular Hemoglobin 35.6 Mean Corpuscular Hemoglobin 34.2 Concent Red Cell Distribution Width 16.9 Platelet Count 61 Mean Platelet Volume 8.5 Neutrophils (%) (Auto) 83.0 Lymphocytes (%) (Auto) 9.1 Monocytes (%) (Auto) 6.6 Eosinophils (%) (Auto) 0.9 Basophils (%) (Auto) 0.4 Neutrophils # (Auto) 7.6 Lymphocytes # (Auto) 0.8 Monocytes # (Auto) 0.6 Eosinophils # (Auto) 0.1 Basophils # (Auto) 0.0 CBC Comment AUTO DIFF Differential Comment AUTO DIFF CONFIRMED Platelet Estimate LOW Platelet Morphology Comment NORMAL Sodium Level 136 Potassium Level 3.0 Chloride Level 101 Carbon Dioxide Level 29.5 Anion Gap 6 Blood Urea Nitrogen 13 Creatinine 0.87 Estimat Glomerular Filtration 88 Rate Random Glucose 91 Calcium Level 7.6 Result Diagram: 10/12/16193410/12/161934 Imaging Last Impressions Chest X-Ray 10/12/16 0000 Signed Impressions: Service Date/Time: Wednesday, October 12, 2016 16:22 - CONCLUSION: 1. Cardiomegaly. 2. No focal alveolar consolidation or pulmonary edema. 3. Degenerative changes and scoliosis of the thoracic spine. 4. Right-sided PICC line has its tip in the expected region of the right axillary vein. Alexandr Oakley MD . Assessment and Plan Problem List: (1) Bacteremia ICD Code: R78.81 Status: Acute (2) Needs peripherally inserted central catheter (PICC) ICD Code: Z45.2 Status: Acute (3) Anemia ICD Code: D64.9 Status: Chronic (4) Hypokalemia ICD Code: E87.6 Status: Acute Assessment and Plan Mr. Stovall is a 66 year-old male who presented to the ER complaining that his PICC line got dislodged. He is on Ceftriaxone 2 gm IV daily until 11/19 for strep viridans bacteremia diagnosed here in August. Bacteremia - strep viridans on blood cultures with Ceftriaxone 2 gm IV x 8 weeks of treatment; Per Dr. Wadsworth's d/c orders: Start Treatment: Oct 01, 2016; Stop Treatment: Nov 19, 2016 - continue Ceftriaxone 2 gm IV q24h PICC line removed in ER - VAT consulted but requested that IR place PICC line as the PICC has been previously dislodged - Repeat CXR to verify PICC line removed without foreign body retention Hypokalemia - initial potassium level 3.0 - potassium replaced - recheck bmp in a.m. and follow results - replace potassium as needed Anemia - likely related to liver cirrhosis - Hgb 10.1 on admission - appears stable compared to prior labs - repeat CBC in a.m. and follow results DVT prophylaxis - SCDs Written by Anastasiia Scanlon, acting as scribe for Dr. Gaspar on 10/12/16 at 22:09. .All or portions of this note were transcribed by scribe [Anatsasiia Scanlon]. I, Dr. Nancy Gaspar personally performed the history, physical exam, and medical decision making; and confirmed the accuracy of the information in the transcribed note. Authenticated by Dr. Nancy Gaspar on 10/12/16 at 22:09. Discussed Condition With ER PA, patient, and RN . Anastasiia Scanlon Oct 12, 2016 22:09 Nancy Gaspar MD Oct 13, 2016 08:11
[2016-10-12] MEDS ORDERED: POTASSIUM CHLORIDE 25 MEQ EFFERVESCENT TAB PO ONE (23:00)
[2016-10-12] MEDS ORDERED: cefTRIAXone INJ 2,000 MG in SODIUM CHLORIDE 0.9% INJ 100 ML IV SCH (23:30)
--- NOTE | 2016-10-12 23:59 | RADRPT ---
EXAM DATE/TIME: 10/12/2016 23:27 [facility] COMPARISON: CHEST SINGLE AP, October 12, 2016, 16:22. INDICATIONS : Evaluate for any evidence of central line. MEDICAL HISTORY : Deaf SURGICAL HISTORY : Unobtainable ENCOUNTER: Subsequent ACUITY: 1 day PAIN SCORE: 0/10 LOCATION: Bilateral chest FINDINGS: Cardiomegaly. Clear lungs. Aortic calcification. A right PICC line has been removed. CONCLUSION: No evidence for central venous catheter.. Maninder Berg MD on October 12, 2016 at 23:56 Board Certified Radiologist. This report was verified electronically.
[2016-10-13 03:00] VITALS: BP 131/78; PULSE 68; RESP 18; TEMP 98.4; O2SAT 97
[2016-10-13 06:30] LABS: AUTOMATED NEUTROPHIL # 5.4 TH/MM3 (1.8-7.7); BASOPHIL # 0.1 TH/MM3 (0-0.2); BASOPHIL % 0.8 % (0.0-2.0); EOSINOPHIL # 0.1 TH/MM3 (0-0.4); EOSINOPHIL % 1.1 % (0.0-4.0); HEMATOCRIT 27.6 % (39.0-51.0); LYMPH % 11.5 % (9.0-44.0); LYMPHOCYTE # 0.8 TH/MM3 (1.0-4.8); MEAN CELL VOLUME 105.3 FL (80.0-100.0); MEAN CORPUSCULAR HGB CONC 34.1 % (32.0-36.0); MONO % 8.5 % (0.0-8.0); NEUT % 78.1 % (16.0-70.0); PLATELET COUNT 50 TH/MM3 (150-450); RED BLOOD COUNT 2.62 MIL/MM3 (4.50-5.90); RED CELL DISTRIBUTION WIDTH 16.8 % (11.6-17.2)
[2016-10-13 06:38] LABS: HEMO FLAGS AUTO DIFF
[2016-10-13 06:47] LABS: BICARBONATE 27.7 MEQ/L (21.0-32.0); POTASSIUM 3.8 MEQ/L (3.5-5.1)
[2016-10-13 08:49] LABS: PLATELET ESTIMATE SMEAR LOW (NORMAL); PLATELET MORPHOLOGY NORMAL (NORMAL); SCAN/DIFF AUTO DIFF CONFIRMED
[2016-10-13 08:57] VITALS: BP 113/87; PULSE 94; RESP 20; TEMP 87.8; O2SAT 96
[2016-10-13] MEDS: SODIUM CHLORIDE 0.9% FLUSH 10 ML FLUSH IV FLUSH SCH (09:00)
[2016-10-13 11:03] VITALS: BP 119/69; PULSE 105; PULSE 99; RESP 18; TEMP 98.6; O2SAT 9
--- NOTE | 2016-10-13 12:59 | HHI.PR ---
Subjective Remarks Follow up for PICC line dislodgement. The patient reports feeling well today, has no medical complaints, just needs PICC replaced. He admits that he was playing with his dogs when it may have become dislodged. Denies any recent fevers/chills. Denies any abdominal pain, nausea/vomiting. He's tolerating oral intake. Objective Vitals Vital Signs Date Time Temp Pulse Resp B/P Pulse Ox O2 Delivery O2 Flow Rate FiO2 10/13/16 11:03 98.6 105 18 119/69 9 10/13/16 08:57 87.8 94 20 113/87 96 10/13/16 03:00 98.4 68 18 131/78 97 10/12/16 20:46 89 17 120/62 98 Room Air 10/12/16 20:07 99 17 105/68 100 Room Air 10/12/16 19:59 96 20 100 Room Air 10/12/16 13:40 98.1 90 14 121/72 100 Room Air I/O 10/12/16 10/12/16 10/12/16 10/13/16 10/13/16 10/13/16 07:00 15:00 23:00 07:00 15:00 23:00 Intake Total 480 ml Balance 480 ml Intake Oral 480 ml # Voids 1 Result Diagram: 10/13/16 0545 10/13/16 0545 Imaging Last Impressions Chest X-Ray 10/12/16 0000 Signed Impressions: Service Date/Time: Wednesday, October 12, 2016 23:27 - CONCLUSION: No evidence for central venous catheter.. Maninder Berg MD Objective Remarks GENERAL: Well-nourished, well-developed pleasant male patient in [facility]. Hearing impaired, reads lips very well. SKIN: Warm and dry. No rash. HEENT: Normocephalic. Atraumatic. Pupils equal and round. No scleral icterus. No injection or drainage. Mucous membranes pink and moist. NECK: Supple. Trachea midline. CARDIOVASCULAR: Regular rate and rhythm. S1, S2 noted. No murmur appreciated. RESPIRATORY: No accessory muscle use. Clear to auscultation. Breath sounds equal bilaterally. GASTROINTESTINAL: Abdomen soft, non-tender, nondistended. Normoactive bowel sounds x4. MUSCULOSKELETAL: No obvious deformities. Extremities without clubbing, cyanosis , or edema. Bilateral arms nonedematous, nontender, no erythema. NEUROLOGICAL: Awake and alert. No obvious cranial nerve deficits. Motor grossly within normal limits. Normal speech. PSYCHIATRIC: Appropriate mood and affect; insight and judgment normal. Medications and IVs Current Medications Medications (Trade) Dose Ordered Sig/B[place] Route Start Time Stop Time Status Last Admin (NS Flush) 2 ml UNSCH PRN IV FLUSH 10/12/16 19:45 (NS Flush) 2 ml BID IV FLUSH 10/12/16 21:00 10/13/16 09:00 Naloxone HCl 0.4 mg 0.4 mg UNSCH PRN IV 10/12/16 19:45 (Rocephin Inj/NS Inj) 100 ml @ 200 mls/hr Q24H IV 10/13/16 20:00 A/P Problem List: (1) Bacteremia ICD Code: R78.81 Status: Acute (2) Needs peripherally inserted central catheter (PICC) ICD Code: Z45.2 Status: Acute (3) Anemia ICD Code: D64.9 Status: Chronic (4) Hypokalemia ICD Code: E87.6 Status: Acute Assessment and Plan 66 year-old male who presented to the ER complaining that his PICC line got dislodged. He is on Ceftriaxone 2 gm IV daily until 11/19 for strep viridans bacteremia diagnosed here in August. Bacteremia - strep viridans on blood cultures with Ceftriaxone 2 gm IV x 8 weeks of treatment; Per Dr. Wadsworth's d/c orders: Start Treatment: Oct 01, 2016; Stop Treatment: Nov 19, 2016 - continue Ceftriaxone 2 gm IV q24h PICC line, fully removed in ER - VAT consulted but requested that IR place PICC line as the PICC has been previously dislodged - Repeat CXR verified PICC removal - Consult IR Hypokalemia - initial potassium level 3.0 - potassium replaced, repeat K 3.8. Anemia - likely related to liver cirrhosis - Hgb 10.1 on admission - appears stable compared to prior labs - repeat CBC stable DVT prophylaxis- SCDs Written by Demetrice Benitez, acting as scribe for Dr. Garza on 10/13/16 at 12: 56. All or portions of this note were transcribed by scribe Demetrice Benitez. I, Dr. Sammie Garza personally performed the history, physical exam, and medical decision making; and confirmed the accuracy of the information in the transcribed note. Authenticated by Dr. Sammie Garza on 10/14/16 at 09:11. Discharge Planning Discharge today after PICC placed. Discharge patient to home, continue C RN for antibiotic infusion Condition on discharge: Improved Heart Healthy Diet as tolerated Ad Elise activity Rx written: no new meds, continue IV Rocephin Follow-up with primary care physician within 2-3 days Demetrice Benitez PA-C Oct 13, 2016 12:59 Sammie Garza MD Oct 14, 2016 09:11
--- NOTE | 2016-10-13 14:03 | HHI.DCPOC ---
Discharge Care Plan Diagnosis: (1) Bacteremia (2) Needs peripherally inserted central catheter (PICC) Goals to Promote Your Health * To prevent worsening of your condition and complications * To maintain your health at the optimal level Directions to Meet Your Goals Take your medications as prescribed Follow your dietary instruction Follow activity as directed Keep your appointments as scheduled Take your immunizations and boosters as scheduled If your symptoms worsen call your PCP, if no PCP go to Urgent Care Center or Emergency Room Smoking is Dangerous to Your Health. Avoid second hand smoke Call the 24-hour hour crisis hotline for domestic abuse at Demetrice Benitez PA-C Oct 13, 2016 14:03
[2016-10-13] MEDS ORDERED: SODIUM CHLORIDE 0.9% FLUSH 10 ML FLUSH IV FLUSH PRN (14:45)
--- NOTE | 2016-10-13 15:55 | RADRPT ---
EXAM DATE/TIME: 10/13/2016 15:26 [facility] COMPARISON: CHEST SINGLE AP, October 12, 2016, 23:27. INDICATIONS : PICC line placement. MEDICAL HISTORY : None. SURGICAL HISTORY : None. ENCOUNTER: Initial ACUITY: 1 day PAIN SCORE: 0/10 LOCATION: middle chest. FINDINGS: Right arm PICC line is in good position with tip at the atriocaval junction level. Lungs are focally clear. No effusion is present. Heart size is borderline with mild central vascular congestion noted. CONCLUSION: Satisfactory PICC line positioning Fortino Lujan MD on October 13, 2016 at 15:53 Board Certified Radiologist. This report was verified electronically.
[2016-10-13] MEDS ORDERED: cefTRIAXone INJ 2,000 MG in SODIUM CHLORIDE 0.9% INJ 100 ML IV ONE (17:00)
[2016-10-13] MEDS ORDERED: cefTRIAXone INJ 2,000 MG in SODIUM CHLORIDE 0.9% INJ 100 ML IV SCH (20:00)
[2016-10-14] MEDS ORDERED: SODIUM CHLORIDE 0.9% FLUSH 10 ML FLUSH IV FLUSH SCH (09:00)
== END 2016-10-13 19:20 | disposition home or self-care (01) ==
LOC: NEPE 13:37 → NEDA 19:35 → NEPGCP 21:17
PROVIDERS: ADMIT Hospitalist; ATTEND Hospitalist
DX: Z45.2 Encounter for adjustment and management of vascular access device (principal); R78.81 Bacteremia; D64.9 Anemia, unspecified; E87.6 Hypokalemia; I25.10 Atherosclerotic heart disease of native coronary artery without angina pectoris; I48.91 Unspecified atrial fibrillation; I50.9 Heart failure, unspecified; I11.0 Hypertensive heart disease with heart failure; E11.9 Type 2 diabetes mellitus without complications; K74.60 Unspecified cirrhosis of liver; H91.90 Unspecified hearing loss, unspecified ear; M41.9 Scoliosis, unspecified; I25.2 Old myocardial infarction; Z95.2 Presence of prosthetic heart valve; Z95.1 Presence of aortocoronary bypass graft; Z86.73 Personal history of transient ischemic attack (TIA), and cerebral infarction without residual deficits; Z95.5 Presence of coronary angioplasty implant and graft
CPT/HCPCS: 36569; 71010; 76937; 80048; 85025; 99284; G0378; J0696

== ENCOUNTER 2017-01-14 06:14 | Day surgery (SDC) | payer OTHER ==
[~2017-01-14 06:14] MED LIST changes: -COLA100C3 PO; -FURO1TAB60 PO; -HYDR-3366 PO
[2017-01-14] MEDS ORDERED: [UNRECOGNIZED DRUG - REMARK] (07:26)
[2017-01-14] MEDS ORDERED: HYDR-3366 PO (07:26)
[2017-01-14] MEDS ORDERED: water pill (07:26)
--- NOTE | 2017-01-14 16:47 | EKG ---
Date Performed: 01/14/2017 Time Performed: 07:23:06 PTAGE: 66 years EKG: Atrial fibrillation Possible left anterior fascicular block Possible anteroseptal infarct - age undetermined Abnormal ECG PREVIOUS TRACING : 09/29/2016 16.33 Compared to prior tracing no significant change DOCTOR: Namita Brewer Interpretating Date/Time 01/14/2017 16:45:19
--- NOTE | 2017-01-15 15:37 | ECHRPT ---
Indication: Cardiomyopathy, unspecified CONCLUSIONS The left ventricular systolic function is normal with an estimated ejection fraction in the range of 60-65%. BP: / HR: Rhythm: Technical Quality: Medications Complications Proc. Components FINDINGS LEFT VENTRICLE The left ventricular systolic function is normal with an estimated ejection fraction in the range of 60-65%. There is moderate fausto-prosthetic regurgitation of the aortic valve prosthesis. RIGHT VENTRICLE The right ventricle is mildly dilated. LEFT ATRIUM The left atrial size is mildly dilated. RIGHT ATRIUM The right atrial size is mildly dilated. ATRIAL APPENDAGES The left atrial appendage is mildly increased. ATRIAL SEPTUM No atrial level shunt is demonstrated by color flow Doppler interrogation. MITRAL VALVE Trace mitral valve regurgitation. AORTIC VALVE There is moderate fausto-prosthetic regurgitation of the aortic valve prosthesis. TRICUSPID VALVE Trace regurgitation Raul Tellez MD (Electronically Signed) Final Date:15 January 2017 15:36
== END 2017-01-14 10:09 | disposition home or self-care (01) ==
LOC: HDOC 06:14 → HDIC 06:14 → HDOC 10:09
PROVIDERS: ATTEND Nuclear Medicine Nuclear Cardiology
DX: I35.0 Nonrheumatic aortic (valve) stenosis (principal); I34.0 Nonrheumatic mitral (valve) insufficiency; J44.9 Chronic obstructive pulmonary disease, unspecified; I25.10 Atherosclerotic heart disease of native coronary artery without angina pectoris; I10 Essential (primary) hypertension; R01.1 Cardiac murmur, unspecified; R00.2 Palpitations; I25.2 Old myocardial infarction; D69.6 Thrombocytopenia, unspecified; H91.90 Unspecified hearing loss, unspecified ear; K70.30 Alcoholic cirrhosis of liver without ascites
CPT/HCPCS: 93005; 93312; 93320; 93325

== ENCOUNTER 2017-02-03 13:31 | Inpatient (IN) | payer OTHER, MEDICARE ==
[~2017-02-03] VITALS: Ht 182.9 cm; Wt 109.5 kg
[2017-02-03] VITALS (27 sets, daily range): BP systolic 84–118; BP diastolic 52–68; PULSE 76–111; RESP 15–34; TEMP 98.4–103.5; O2SAT 97–100
[~2017-02-03 13:31] MED LIST changes: -AMLO5 PO; -GABA100C4 PO; +HYDR-3366 PO; -METO25TA3 PO; +[UNRECOGNIZED DRUG - REMARK]; +water pill
[2017-02-03] MEDS ORDERED: SODIUM CHLOR 0.9% 1000 ML INJ 1,000 ML IV ONE ×2 (13:37)
[2017-02-03] MEDS ORDERED: ACETAMINOPHEN 650 MG SUPP RECTAL ONE (13:45)
[2017-02-03] MEDS ORDERED: FURO1TAB60 PO (13:53)
[2017-02-03] MEDS ORDERED: METO25TA3 PO (13:53)
[2017-02-03] MEDS ORDERED: AMLO5TAB2 PO (13:53)
[2017-02-03 14:00] LABS: AUTOMATED NEUTROPHIL # 9.3 TH/MM3 (1.8-7.7); BASOPHIL # 0.1 TH/MM3 (0-0.2); BASOPHIL % 0.6 % (0.0-2.0); HEMATOCRIT 32.6 % (39.0-51.0); LYMPH % 3.3 % (9.0-44.0); LYMPHOCYTE # 0.3 TH/MM3 (1.0-4.8); MEAN CELL VOLUME 106.6 FL (80.0-100.0); MEAN CORPUSCULAR HEMOGLOBIN 37.2 PG (27.0-34.0); MEAN CORPUSCULAR HGB CONC 34.9 % (32.0-36.0); MONO % 3.5 % (0.0-8.0); NEUT % 92.6 % (16.0-70.0); PLATELET COUNT 24 TH/MM3 (150-450); RED BLOOD COUNT 3.06 MIL/MM3 (4.50-5.90); RED CELL DISTRIBUTION WIDTH 17.8 % (11.6-17.2); WHITE BLOOD COUNT 10.1 TH/MM3 (4.0-11.0)
[2017-02-03 14:03] LABS: HEMO FLAGS AUTO DIFF
[2017-02-03 14:03] LABS: BLOOD GAS BASE EXCESS -6.9 mmol/L (-2-2); BLOOD GAS CARBOXYHEMOGLOBIN 2.9 % (0-4); BLOOD GAS HCO3 16 mmol/L (22-26); BLOOD GAS METHEMOGLOBIN 0.3 % (0-2); BLOOD GAS O2 HGB SATURATION 96 % (90-100); BLOOD GAS OXYGEN CONTENT 13.7 Vol % (12.0-20.0); BLOOD GAS PCO2 22 mmHg (38-42); BLOOD GAS PO2 99 mmHG (61-120); TEMP CORR TO 98.6
[2017-02-03 14:04] LABS: CRITICAL VALUE YES; DRAW SITE LT RADIAL; LITER FLOW 2 L/M; NUMBER OF ARTERIAL PUNCTURES 1; OXYGEN DEVICE NASAL CANNULA; STAT YES; ULNAR PULSE Y
[2017-02-03 14:12] LABS: APTT (PATIENT) 43.5 SEC (24.3-30.1); INTERNATIONAL NORMALIZED RATIO 1.8 RATIO; PROTHROMBIN TIME - PATIENT 20.4 SEC (9.8-11.6)
[2017-02-03 14:23] LABS: ALT (GPT) 20 U/L (12-78); ANION GAP 14 MEQ/L (5-15); AST (GOT) 46 U/L (15-37); BICARBONATE 17.2 MEQ/L (21.0-32.0); BLOOD UREA NITROGEN 18 MG/DL (7-18); CHLORIDE 103 MEQ/L (98-107); GLOMERULAR FILTRATION RATE 49 ML/MIN (>89); MAGNESIUM 1.2 MG/DL (1.5-2.5); POTASSIUM 3.5 MEQ/L (3.5-5.1); SODIUM (NA) 134 MEQ/L (136-145)
[2017-02-03 14:27] LABS: ALKALINE PHOSPHATASE 86 U/L (45-117); TOTAL BILIRUBIN ADULT 6.5 MG/DL (0.2-1.0)
[2017-02-03 14:36] LABS: CREATINE KINASE 57 U/L (39-308)
--- NOTE | 2017-02-03 14:40 | RADRPT ---
EXAM DATE/TIME: 02/03/2017 14:11 [facility] COMPARISON: CHEST SINGLE AP, October 13, 2016, 15:26. INDICATIONS : Fever. MEDICAL HISTORY : Cardiovascular disease. Hypertension SURGICAL HISTORY : Appendectomy. ENCOUNTER: Subsequent ACUITY: 2 days PAIN SCORE: Non-responsive. LOCATION: Bilateral chest FINDINGS: A single view of the chest demonstrates the lungs to be symmetrically aerated without evidence of mas s, infiltrate or effusion. The cardiomediastinal contours are unremarkable. Osseous structures are intact. CONCLUSION: No acute disease. Todd Cortes Jr., MD on February 03, 2017 at 14:37 Board Certified Radiologist. This report was verified electronically.
[2017-02-03 14:46] LABS: BANDS 16 % (0-6); METAMYELOCYTES 3 % (0-1); NEUTROPHIL # MANUAL DIFF 9.8 TH/MM3 (1.8-7.7); POLYS (SEG NEUTROPHILS) 78 % (16-70); TOXIC VACUOLATION PRESENT (NONE SEEN); WBC DIFF SAMPLE 100
[2017-02-03 14:47] LABS: TOXIC GRANULATION 1+ (NORMAL)
[2017-02-03 14:48] LABS: OVALOCYTES 1+ (NORMAL)
[2017-02-03 14:50] LABS: KERATOCYTES OCC (NORMAL); PLATELET ESTIMATE SMEAR LOW (NORMAL); PLATELET MORPHOLOGY NORMAL (NORMAL)
[2017-02-03 14:51] LABS: DOHLE BODIES PRESENT (NONE SEEN); SCAN/DIFF FINAL DIFF MANUAL
[2017-02-03 15:19] LABS: BACTERIA, URINE MANY /hpf; BLOOD, URINE LARGE (NEG); GLUCOSE,URINE NEG (NEG); KETONE, URINE NEG (NEG); MUCUS URINE FEW /lpf (OCC); NITRITE,URINE NEG (NEG); PH, URINE 5.5 (5.0-8.5); SQUAMOUS EPITHELIAL CELL URINE 22 /hpf (0-5); TRANSITIONAL EPI CELLS, URINE 1 /hpf
[2017-02-03 15:21] LABS: COMMENT (UR) CATH-CULTURE IND; CULTURE IF INDICATED CATH CULTURE IND; URINE COLOR LIGHT-BROWN (YELLW/STRAW)
--- NOTE | 2017-02-03 15:29 | RADRPT ---
EXAM DATE/TIME: 02/03/2017 15:02 [facility] COMPARISON: CT BRAIN W/O CONTRAST, February 18, 2016, 20:46. INDICATIONS : Evaluate for altered mental status. RADIATION DOSE: 56.35 CTDIvol (mGy) MEDICAL HISTORY : Cirrhosis. Cardiovascular disease Pancreatitis.ID SURGICAL HISTORY : CABG ENCOUNTER: Initial ACUITY: 1 day PAIN SCALE: 2/10 LOCATION: Bilateral cranial TECHNIQUE: Multiple contiguous axial images were obtained of the head. Using automated exposure control and adj ustment of the mA and/or kV according to patient size, radiation dose was kept as low as reasonably a chievable to obtain optimal diagnostic quality images. DICOM format image data is available electro nically for review and comparison. FINDINGS: There is no evidence for intracranial hemorrhage, mass effect, mass lesions, or edema. The visualize d bony structures appear intact. Slight degree of brain atrophy is seen. Slight periventricular whit e matter changes are seen nonspecific mostly consistent with chronic small vessel ischemic changes. There are no signs of acute infarction for technique. CONCLUSION: Slight atrophic and small vessel ischemic changes without any evidence for acute hemorrhage or mass effect. Antoine Ramires MD on February 03, 2017 at 15:22 Board Certified Radiologist. This report was verified electronically.
--- NOTE | 2017-02-03 15:41 | RADRPT ---
EXAM DATE/TIME: 02/03/2017 15:04 [facility] COMPARISON: CT ABDOMEN & PELVIS W CONTRAST, March 05, 2016, 1:21. CT ABDOMEN & PELVIS W /O CONTRAST, September 03, 2016, 11:40. CT ABDOMEN & PELVIS W/O CONTRAST, September 26, 2016, 16:33. INDICATIONS : Evaluate for fever. ORAL CONTRAST: No oral contrast ingested. RADIATION DOSE: 16.82 CTDIvol (mGy) MEDICAL HISTORY : Cardiovascular disease. Myocardial infarction. Cirrhosis.Pancreatitis. SURGICAL HISTORY : CABG ENCOUNTER: Initial ACUITY: 1 day PAIN SCALE: 2/10 LOCATION: Bilateral lower quadrant TECHNIQUE: Volumetric scanning of the abdomen and pelvis was performed. Using automated exposure control and adjustment of the mA and/or kV according to patient size, radiation dose was kept as low as reasonably achievable to obtain optimal diagnostic quality images. DICOM format image data is av ailable electronically for review and comparison. FINDINGS: CT Abdomen: The liver is cirrhotic and spleen measures 18.2 cm in AP diameter and there are multiple varices at the level of the gastroesophageal junction, splenic hilum. There is a recanalized paraumbi lical vein. Previously seen pleural effusions have resolved. There is an area of diminished attenuati on involving the spleen which measures 8.6 cm in size and appears smaller more liquefactive since the prior examination and possibility of splenic infarction should be entertained there are other areas of wedge-shaped defect extending to the splenic capsule. There is haziness of the mesentery with diff use anasarca most likely passive edema with slight ascites throughout the abdomen and pelvis. There i s also thickening of multiple loops of small bowel may be due to passive congestion as well without d efinite signs of bowel obstruction. The pancreas, kidneys, adrenals are unremarkable. There is no yaya dence for any appreciable pathological adenopathy, free fluid, or bowel obstruction. There are old h ealed rib fractures in the right lower chest. There is slight wedging of multiple vertebrae not adequ ately characterized most likely chronic. CT pelvis: There is no evidence for mass, abscess formation, or any significant adenopathy within the pelvis. CONCLUSION: 1. 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 2. Resolution of previously seen bilateral pleural effusions, however there is anasarca with slight a scites and diffuse haziness of the mesentery and probable edema involving multiple loops of small bow el wall. Antoine Ramires MD on February 03, 2017 at 15:28 Board Certified Radiologist. This report was verified electronically.
[2017-02-03] MEDS ORDERED: PIPERACIL-TAZO 4.5 GM PREMIX 100 ML IV STA (15:52)
[2017-02-03] MEDS ORDERED: VANCOMYCIN INJ 1,000 MG in SODIUM CHLOR 0.9% 250 ML INJ 250 ML IV STA (15:52)
[2017-02-03] MEDS ORDERED: NOREPINEPHRINE-DEXTROSE DRIP 250 ML IV SCH (16:00)
[2017-02-03] MEDS ORDERED: TERBUTALINE INJ 1 MG/ML AMP SQ PRN ×2 (16:00→17:00)
[2017-02-03] MEDS ORDERED: NOREPINEPHRINE 4 MG/4 ML AMP ONE (16:04)
--- NOTE | 2017-02-03 16:31 | PD ---
HPI Chief Complaint: Fever Time Seen by Provider: 13:50 Travel History International Travel<30 days: No Contact w/Intl Traveler<30days: No Traveled to known affect area: No History of Present Illness HPI Patient's 66-year-old male that was brought into the emergency via EMS after being found down on the floor of his home. Is uncertain of the time he presented how long he had been down for. Patient was covered in fecal matter, fecal matter was spread throughout the room and on the bed. Patient was found naked and unresponsive. EMS stated that temp was 102.8, systolic blood pressure was in the 90s, his heart rate was 114-120. PFSH Past Medical History Hx Anticoagulant Therapy: Yes Arthritis: Yes Asthma: Yes Blood Disorders: No Heart Rhythm Problems: Yes (Hx A-Fib RVR ) Cancer: No Cardiac Catheterization: Yes Cardiovascular Problems: Yes High Cholesterol: No Chemotherapy: No Chest Pain: Yes Congestive Heart Failure: Yes COPD: No Cerebrovascular Accident: Yes (2004) Coronary Artery Disease: Yes Diabetes: Yes Patient Takes Glucophage: No (UNKNOWN) Diminished Hearing: Yes (DEAF) Endocrine: Yes Gastrointestinal Disorders: Yes (Chirrosis of the Liver) Glaucoma: Yes Genitourinary: No Hypertension: Yes Immune Disorder: No Implanted Vascular Access Dvce: Yes (picc line r arm ) Musculoskeletal: Yes (Arthritis ) Neurologic: No Psychiatric: No Reproductive: No Respiratory: Yes Immunizations Current: Yes Myocardial Infarction: Yes Pneumonia: Yes Radiation Therapy: No Sickle Cell Disease: No Sleep Apnea: No Thyroid Disease: No Tetanus Vaccination: < 5 Years Influenza Vaccination: Yes Past Surgical History Abdominal Surgery: Yes (paracentesis) Appendectomy: Yes Cardiac Surgery: Yes (VALVE REPLACEMENT, CABG x3 ) Coronary Stent: Yes Ear Surgery: No Eye Surgery: No Genitourinary Surgery: No Gynecologic Surgery: No Neurologic Surgery: No Oral Surgery: No Thoracic Surgery: No Tonsillectomy: Yes Other Surgery: Yes (Paracentesis) Social History Alcohol Use: No Tobacco Use: No Substance Use: No (HX OF DRUG AND ALCOHOL ABUSE) Allergies-Medications (Allergen,Severity, Reaction): Coded Allergies: Lisinopril (Verified Allergy, Intermediate, 02/03/17) Reported Meds & Prescriptions Reported Meds & Active Scripts Active Reported Lasix (Furosemide) 40 Mg Tab 40 Mg PO DAILY Amlodipine (Amlodipine Besylate) 5 Mg Tab 5 Mg PO DAILY Metoprolol Tartrate 25 Mg Tab 25 Mg PO BID [place] (Hydrocodone-Acetaminophen) 10-325 Mg Tab 1 Tab PO Q4H PRN Review of Systems ROS Limitations: Altered Mental Status, Hearing Impaired Except as stated in HPI: all other systems reviewed are Neg General / Constitutional: Positive: Fever Gastrointestinal: Positive: Abdominal Pain Skin: Positive Change in Pigmentation Physical Exam Narrative GENERAL: Obese, well-developed, acutely ill-appearing male. SKIN: Warm and dry. Appears jaundiced with a petechial rash to abdomen HEAD: Atraumatic. Normocephalic. EYES: Pupils equal and round. No scleral icterus. No injection or drainage. ENT: No nasal bleeding or discharge. Mucous membranes pink and moist. NECK: Trachea midline. No JVD. CARDIOVASCULAR: Tachycardic, 2/6 systolic murmur. 1+ peripheral edema. RESPIRATORY: No accessory muscle use. Diminished with expiratory wheezing. GASTROINTESTINAL: Abdomen obese, soft, mildly tender to palpation in right and left lower quadrants, nondistended. Hepatic and splenic margins not palpable. No rebound, no guarding MUSCULOSKELETAL: Extremities without clubbing, cyanosis. No obvious deformities. NEUROLOGICAL: Drowsy but arousable. No obvious cranial nerve deficits. Motor grossly within normal limits. Five out of 5 muscle strength in the arms and legs. Hearing-impaired. Data Data Last Documented VS Vital Signs Date Time Temp Pulse Resp B/P Pulse Ox O2 Delivery O2 Flow Rate FiO2 02/03/17 14:44 103.1 100 18 91/59 100 Nasal Cannula 2 Orders Electrocardiogram (02/03/17 13:37) Complete Blood Count With Diff (02/03/17 13:37) Comprehensive Metabolic Panel (02/03/17 13:37) Prothrombin Time / Inr (Pt) (02/03/17 13:37) Act Partial Throm Time (Ptt) (02/03/17 13:37) Lactic Acid Sepsis Protocol (02/03/17 13:37) Magnesium (Mg) (02/03/17 13:37) Lipase (02/03/17 13:37) Ckmb (Isoenzyme) Profile (02/03/17 13:37) Troponin I (02/03/17 13:37) Urinalysis - C+S If Indicated (02/03/17 13:37) Blood Culture (02/03/17 13:37) Chest, Single Ap (02/03/17 13:37) Arterial Blood Gas (Abg) (02/03/17 13:37) Blood Glucose (02/03/17 13:37) Ecg Monitoring (02/03/17 13:37) Iv Access Insert/Monitor (02/03/17 13:37) Oximetry (02/03/17 13:37) Oxygen Administration (02/03/17 13:37) Urinary Catheter Insert/Apply (02/03/17 13:37) Acetaminophen Supp (Tylenol Supp) (02/03/17 13:45) Sodium Chlor 0.9% 1000 Ml Inj (Ns 1000 M (02/03/17 13:37) Sodium Chlor 0.9% 1000 Ml Inj (Ns 1000 M (02/03/17 13:37) Ct Abd/Pel W/O Iv Contrast (02/03/17 ) Ct Brain W/O Iv Contrast(Rout) (02/03/17 ) Magnesium Sulfate 1 Gm Premix (Magnesium (02/03/17 15:00) Ankle, Complete ([id number]) (02/03/17 ) Urine Culture (02/03/17 14:30) Piperacil-Tazo 4.5 Gm Premix (Zosyn 4.5 (02/03/17 15:52) Vancomycin Inj (Vancomycin Inj) (02/03/17 15:52) ^ Infusion (02/03/17 ) Norepinephrine-Dextrose Drip (Levophed-D (02/03/17 16:00) Terbutaline Inj (Brethine Inj) (02/03/17 16:00) Lactic Acid Sepsis Protocol (02/03/17 15:55) Norepinephrine Inj (Levophed Inj) (02/03/17 16:04) Inpatient Certification (02/03/17 16:07) Admit Order (Ed Use Only) (02/03/17 16:07) Labs Laboratory Tests Test 02/03/17 02/03/17 02/03/17 02/03/17 13:37 13:50 14:00 14:30 Lactic Acid Level 4.8 mmol/L White Blood Count 10.1 TH/MM3 Red Blood Count 3.06 MIL/MM3 Hemoglobin 11.4 GM/DL Hematocrit 32.6 % Mean Corpuscular Volume 106.6 FL Mean Corpuscular Hemoglobin 37.2 PG Mean Corpuscular Hemoglobin 34.9 % Concent Red Cell Distribution Width 17.8 % Platelet Count 24 TH/MM3 Mean Platelet Volume 9.1 FL Neutrophils (%) (Auto) 92.6 % Lymphocytes (%) (Auto) 3.3 % Monocytes (%) (Auto) 3.5 % Eosinophils (%) (Auto) 0.0 % Basophils (%) (Auto) 0.6 % Neutrophils # (Auto) 9.3 TH/MM3 Lymphocytes # (Auto) 0.3 TH/MM3 Monocytes # (Auto) 0.4 TH/MM3 Eosinophils # (Auto) 0.0 TH/MM3 Basophils # (Auto) 0.1 TH/MM3 CBC Comment AUTO DIFF Differential Total Cells 100 Counted Neutrophils % (Manual) 78 % Band Neutrophils % 16 % Lymphocytes % 1 % Monocytes % 2 % Neutrophils # (Manual) 9.8 TH/MM3 Metamyelocytes 3 % Differential Comment FINAL DIFF MANUAL Toxic Granulation 1+ Toxic Vacuolation PRESENT Dohle Bodies PRESENT Platelet Estimate LOW Platelet Morphology Comment NORMAL Ovalocytes 1+ Keratocytes OCC Prothrombin Time 20.4 SEC Prothromb Time International 1.8 RATIO Ratio Activated Partial 43.5 SEC Thromboplast Time Sodium Level 134 MEQ/L Potassium Level 3.5 MEQ/L Chloride Level 103 MEQ/L Carbon Dioxide Level 17.2 MEQ/L Anion Gap 14 MEQ/L Blood Urea Nitrogen 18 MG/DL Creatinine 1.45 MG/DL Estimat Glomerular Filtration 49 ML/MIN Rate Random Glucose 89 MG/DL Calcium Level 7.9 MG/DL Magnesium Level 1.2 MG/DL Total Bilirubin 6.5 MG/DL Aspartate Amino Transf 46 U/L (AST/SGOT) Alanine Aminotransferase 20 U/L (ALT/SGPT) Alkaline Phosphatase 86 U/L Total Creatine Kinase 57 U/L Troponin I 0.09 NG/ML Total Protein 5.8 GM/DL Albumin 2.0 GM/DL Lipase 59 U/L Blood Gas Puncture Site LT RADIAL Blood Gas Patient Temperature 98.6 Blood Gas HCO3 16 mmol/L Blood Gas Base Excess -6.9 mmol/L Blood Gas Oxygen Saturation 96 % Arterial Blood pH 7.48 Arterial Blood Partial 22 mmHg Pressure CO2 Arterial Blood Partial 99 mmHG Pressure O2 Arterial Blood Oxygen Content 13.7 Vol % Arterial Blood 2.9 % Carboxyhemoglobin Arterial Blood Methemoglobin 0.3 % Blood Gas Hemoglobin 10.0 G/DL Oxygen Delivery Device NASAL CANNULA Blood Gas Liter Flow 2 L/M Urine Color LIGHT-BROWN Urine Turbidity CLOUDY Urine pH 5.5 Urine Specific Fidelity 1.015 Urine Protein 100 mg/dL Urine Glucose (UA) NEG mg/dL Urine Ketones NEG mg/dL Urine Occult Blood LARGE Urine Nitrite NEG Urine Bilirubin NEG Urine Urobilinogen 2.0 MG/DL Urine Leukocyte Esterase MOD Urine RBC 12 /hpf Urine WBC 19 /hpf Urine Squamous Epithelial 22 /hpf Cells Urine Transitional Epithelial 1 /hpf Cells Urine Amorphous Sediment RARE Urine Bacteria MANY /hpf Urine Mucus FEW /lpf Microscopic Urinalysis Comment CATH-CULTURE IND MDM Medical Decision Making Medical Screen Exam Complete: Yes Emergency Medical Condition: Yes Medical Record Reviewed: Yes Interpretation(s) Last Impressions Chest X-Ray 02/03/17 1337 Signed Impressions: Service Date/Time: , February 03, 2017 14:11 - CONCLUSION: No acute disease. Todd Cortes Jr., MD Head CT 02/03/17 0000 Signed Impressions: Service Date/Time: , February 03, 2017 15:02 - CONCLUSION: Slight atrophic and small vessel ischemic changes without any evidence for acute hemorrhage or mass effect. Antoine Ramires MD Abdomen/Pelvis CT 02/03/17 0000 Signed Impressions: Service Date/Time: , February 03, 2017 15:04 - CONCLUSION: 1. Abnormal areas of diminished attenuation within the spleen most likely areas of splenic infarction. 2. Resolution of previously seen bilateral pleural effusions, however there is anasarca with slight ascites and diffuse haziness of the mesentery and probable edema involving multiple loops of small bowel wall. Antoine Ramires MD Laboratory Tests Test 02/03/17 02/03/17 02/03/17 02/03/17 13:37 13:50 14:00 14:30 Lactic Acid Level 4.8 mmol/L White Blood Count 10.1 TH/MM3 Red Blood Count 3.06 MIL/MM3 Hemoglobin 11.4 GM/DL Hematocrit 32.6 % Mean Corpuscular Volume 106.6 FL Mean Corpuscular Hemoglobin 37.2 PG Mean Corpuscular Hemoglobin 34.9 % Concent Red Cell Distribution Width 17.8 % Platelet Count 24 TH/MM3 Mean Platelet Volume 9.1 FL Neutrophils (%) (Auto) 92.6 % Lymphocytes (%) (Auto) 3.3 % Monocytes (%) (Auto) 3.5 % Eosinophils (%) (Auto) 0.0 % Basophils (%) (Auto) 0.6 % Neutrophils # (Auto) 9.3 TH/MM3 Lymphocytes # (Auto) 0.3 TH/MM3 Monocytes # (Auto) 0.4 TH/MM3 Eosinophils # (Auto) 0.0 TH/MM3 Basophils # (Auto) 0.1 TH/MM3 CBC Comment AUTO DIFF Differential Total Cells 100 Counted Neutrophils % (Manual) 78 % Band Neutrophils % 16 % Lymphocytes % 1 % Monocytes % 2 % Neutrophils # (Manual) 9.8 TH/MM3 Metamyelocytes 3 % Differential Comment FINAL DIFF MANUAL Toxic Granulation 1+ Toxic Vacuolation PRESENT Dohle Bodies PRESENT Platelet Estimate LOW Platelet Morphology Comment NORMAL Ovalocytes 1+ Keratocytes OCC Prothrombin Time 20.4 SEC Prothromb Time International 1.8 RATIO Ratio Activated Partial 43.5 SEC Thromboplast Time Sodium Level 134 MEQ/L Potassium Level 3.5 MEQ/L Chloride Level 103 MEQ/L Carbon Dioxide Level 17.2 MEQ/L Anion Gap 14 MEQ/L Blood Urea Nitrogen 18 MG/DL Creatinine 1.45 MG/DL Estimat Glomerular Filtration 49 ML/MIN Rate Random Glucose 89 MG/DL Calcium Level 7.9 MG/DL Magnesium Level 1.2 MG/DL Total Bilirubin 6.5 MG/DL Aspartate Amino Transf 46 U/L (AST/SGOT) Alanine Aminotransferase 20 U/L (ALT/SGPT) Alkaline Phosphatase 86 U/L Total Creatine Kinase 57 U/L Troponin I 0.09 NG/ML Total Protein 5.8 GM/DL Albumin 2.0 GM/DL Lipase 59 U/L Blood Gas Puncture Site LT RADIAL Blood Gas Patient Temperature 98.6 Blood Gas HCO3 16 mmol/L Blood Gas Base Excess -6.9 mmol/L Blood Gas Oxygen Saturation 96 % Arterial Blood pH 7.48 Arterial Blood Partial 22 mmHg Pressure CO2 Arterial Blood Partial 99 mmHG Pressure O2 Arterial Blood Oxygen Content 13.7 Vol % Arterial Blood 2.9 % Carboxyhemoglobin Arterial Blood Methemoglobin 0.3 % Blood Gas Hemoglobin 10.0 G/DL Oxygen Delivery Device NASAL CANNULA Blood Gas Liter Flow 2 L/M Urine Color LIGHT-BROWN Urine Turbidity CLOUDY Urine pH 5.5 Urine Specific [place] 1.015 Urine Protein 100 mg/dL Urine Glucose (UA) NEG mg/dL Urine Ketones NEG mg/dL Urine Occult Blood LARGE Urine Nitrite NEG Urine Bilirubin NEG Urine Urobilinogen 2.0 MG/DL Urine Leukocyte Esterase MOD Urine RBC 12 /hpf Urine WBC 19 /hpf Urine Squamous Epithelial 22 /hpf Cells Urine Transitional Epithelial 1 /hpf Cells Urine Amorphous Sediment RARE Urine Bacteria MANY /hpf Urine Mucus FEW /lpf Microscopic Urinalysis Comment CATH-CULTURE IND Vital Signs Date Time Temp Pulse Resp B/P Pulse Ox O2 Delivery O2 Flow Rate FiO2 02/03/17 14:44 103.1 100 18 91/59 100 Nasal Cannula 2 02/03/17 14:16 100 Nasal Cannula 2.00 02/03/17 14:01 103.5 105 18 118/56 100 Nasal Cannula 2 02/03/17 13:44 100 Nasal Cannula 4 02/03/17 13:36 102.0 111 28 118/56 100 Differential Diagnosis CVA versus UTI versus sepsis versus ischemic bowel versus hemorrhage versus Narrative Course Patient is 66-year-old male that presented via EMS for evaluation after being found unresponsive. Labs and imaging ordered and pending. Temperature sensing Dash inserted, IV access established, patient placed on telemetry monitoring, continuous pulse oximetry. Patient's daughter arrived to the emergency department, she states that she saw him yesterday and he was fine. She states that he is ambulatory, he drives. 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 Patient complained of ankle pain, x-ray ordered. When daughter arrived patient was able to communicate more effectively and he stated to her that his knees gave out and he was unable to get off the floor yesterday. Patient is febrile on arrival, acetaminophen suppository given. Patient was given 800 cc of normal saline en route, he received another 2 L., vancomycin and Zosyn ordered Chest x-ray shows no acute disease CT the abdomen and pelvis shows abnormal areas of diminished attenuation within the spleen most likely areas of splenic infarct, there is anasarca with slight ascites and diffuse haziness the mesentery of probable edema involving multiple loops of small bowel wall. Head CT shows slight atrophic and small vessel ischemic changes with no evidence of acute hemorrhage or mass effect Ankle x-ray pending CBC shows significant bandemia at 16, platelets of 24 Lactic acid 4.8 Creatinine 1.45, Magnesium 1.2, IV replacement ordered. Urinalysis with 19 white blood cells, moderate leukocyte esterase, many bacteria , reflex Culture pending. Blood pressure started to trend down, Levophed drip ordered, supervisor delivery department paged for admission Dr. Small discussed with Dr. Cortes. Admit orders placed. 1624 -Dr. Russell in room assessing patient. Sepsis Criteria SIRS Criteria (2 or more): Temp > 100.9 or < 96.8, Heart rate over 90, WBC > 02492, < 4000 or > 10% bands Severe Sepsis (+one): Hypotension, Lactate >2 Septic Shock Criteria: Lactic acid >=4 Criteria Outcome: Meets septic shock criteria Diagnosis Primary Impression: Septic shock Additional Impressions: Bandemia UTI (urinary tract infection) Qualified Code: N39.0 - Urinary tract infection with hematuria, site unspecified Anemia Qualified Code: D64.9 - Anemia, unspecified type Thrombocytopenia Admitting Information Admitting Physician Requests: Admit Condition: Critical Rossana Mena Feb 03, 2017 16:31
[2017-02-03 16:42] LABS: LACTIC ACID GHOST NOT REPORTABLE
--- NOTE | 2017-02-03 16:58 | HHI.HP ---
[facility] Service Critical Care Medicine Primary Care Physician Non-Staff Admission Diagnosis septic shock Diagnosis: (1) Thrombocytopenia Diagnosis: Secondary (2) Lactic acidosis Diagnosis: Principal (3) Hypomagnesemia Diagnosis: Principal (4) Hyponatremia Diagnosis: Secondary (5) Macrocytic anemia Diagnosis: Secondary (6) Hypoalbuminemia Diagnosis: Secondary (7) Septic shock Diagnosis: Principal (8) Hepatitis C Diagnosis: Principal (9) Diabetes mellitus Diagnosis: Principal (10) History of hypertension Diagnosis: Principal (11) Coronary artery disease Diagnosis: Principal (12) Atrial fibrillation Diagnosis: Principal (13) Elevated troponin I level Diagnosis: Principal (14) Aortic stenosis Diagnosis: Secondary (15) Right rib fracture Diagnosis: Principal (16) Splenic infarction Diagnosis: Principal (17) Varices, esophageal Diagnosis: Principal (18) Varices, gastric Diagnosis: Principal (19) History of acute bacterial endocarditis Diagnosis: Principal (20) Cervical stenosis of spine Diagnosis: Principal (21) Coagulopathy Diagnosis: Principal (22) History of discitis Diagnosis: Principal (23) Diarrhea Diagnosis: Principal (24) Splenomegaly Diagnosis: Principal (25) Hard of hearing Diagnosis: Principal Chief Complaint: Weakness 2 days. Diarrhea. Travel History International Travel<30 Days: No Contact w/Intl Traveler <30 Da: No Traveled to Known Affected Are: No Sepsis Criteria SIRS Criteria (2 or more): Temp > 100.9 or < 96.8, Heart rate over 90 Sepsis Criteria (SIRS+source): Infect source susp/known Severe Sepsis (+one): Hypotension Septic Shock Criteria: Lactic acid >=4 Criteria Outcome: Meets septic shock criteria History of Present Illness This is 66-year-old male. Date of admission 02/03/2017. 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 Patient was treated for strep. viridians Endocarditis from September through November 8 weeks with Rocephin. During my consultation was diagnosed with T8/9 discitis via biopsy. Patient has not been on antibiotic's in the interim. Patient has known history of alcoholic use. Despite known hepatitis C genotype 2B and underlying cirrhosis. Patient was found at home today by family members after 2 day history of generalized weakness/unable to get up associated with vague abdominal pain. Patient sees been falling down. He is found at his home by E VAC hypotensive, tachycardic and covered in stool and blood. Patient has received 2 L of normal saline. Pertinent laboratories revealed a macrocytic anemia, thrombocytopenia 24,000 which is close to his baseline secondary to underlying liver disease secondary/hepatitis C cirrhosis, and UA positive for cystitis. Lactic acid was 4.8 Chest x-ray revealed no acute findings. CT abdomen pelvis without contrast revealed hepatosplenomegaly with possible splenic infarct 8.6 and Ms., varices at the GE junction, right rib fractures and bowel edema positive secondary to ascites. Patient has been started on peripheral norepinephrine at 8 mu./m. 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 Patient is currently very hard of hearing but awake and appropriate. Review of Systems Constitutional: COMPLAINS OF: Fever, DENIES: Weight gain, Weight loss Endocrine: DENIES: Polydipsia, Polyuria Eyes: DENIES: Blurred vision Ears, nose, mouth, throat: COMPLAINS OF: Hearing loss, DENIES: Nasal discharge , Oral lesions, Throat pain Respiratory: DENIES: Cough, Shortness of breath Cardiovascular: DENIES: Chest pain Gastrointestinal: COMPLAINS OF: Abdominal pain, Diarrhea, Nausea, Vomiting, DENIES: Constipation Genitourinary: DENIES: Hematuria, Dysuria, Nocturia Musculoskeletal: DENIES: Joint pain Integumentary: DENIES: Pruritus Hematologic/lymphatic: COMPLAINS OF: Bruising Immunologic/allergic: DENIES: Eczema Neurologic: DENIES: Abnormal gait, Headache Psychiatric: COMPLAINS OF: Anxiety, Confusion, DENIES: Depression Past Family Social History Allergies: Coded Allergies: Lisinopril (Verified Allergy, Intermediate, 02/03/17) Past Medical History YSLETA DEL SUR History of gastritis EtOH History of atrial fibrillation Coronary artery disease History of hypertension History diabetes mellitus Right rib fractures History of his gastroesophageal varices History of strep viridians endocarditis/T8 and 9 discitis Chronic thrombus cytopenia secondary to hepatitis C/EtOH cirrhosis Liver cirrhosis Chronic coagulopathy secondary to underlying chronic liver disease Past Surgical History History of TAVR - Shands 3 vessel CABG Coronary artery stents History of EGD Reported Medications Lasix (Furosemide) 40 Mg Tab 40 Mg PO DAILY Amlodipine (Amlodipine Besylate) 5 Mg Tab 5 Mg PO DAILY Metoprolol Tartrate 25 Mg Tab 25 Mg PO BID [place] (Hydrocodone-Acetaminophen) 10-325 Mg Tab 1 Tab PO Q4H PRN Active Ordered Medications Reviewed in EMR Family History Positive for EtOH with father. No history of coronary artery disease. Social History Smoked one half pack per day from age [age]. History of EtOH use ongoing. No IV drug use documented Physical Exam Vital Signs Vital Signs Date Time Temp Pulse Resp B/P Pulse Ox O2 Delivery O2 Flow Rate FiO2 02/03/17 16:23 83 18 99/52 99 Nasal Cannula 2 02/03/17 16:14 101.3 89 18 84/56 99 Nasal Cannula 2 02/03/17 14:44 103.1 100 18 91/59 100 Nasal Cannula 2 02/03/17 14:16 100 Nasal Cannula 2.00 02/03/17 14:01 103.5 105 18 118/56 100 Nasal Cannula 2 02/03/17 13:44 100 Nasal Cannula 4 02/03/17 13:36 102.0 111 28 118/56 100 Physical Exam GENERAL: 46-year-old male, critically ill currently resting in bed in no acute distress talking on the telephone SKIN: Warm and dry. Well perfused. No rash HEAD: Atraumatic. Normocephalic. EYES: Pupils equal and round around 2 mm bilaterally and reactive. Positive scleral icterus. No injection or drainage. ENT: No nasal bleeding or discharge. Mucous membranes pink and dry. Oropharynx without erythema or exudates. NECK: Trachea midline. No JVD. CARDIOVASCULAR: Regular rate and rhythm. S1, S2. No S4. 2/6 decrescendo diastolic murmur at [place] RESPIRATORY: Diminished breath sounds throughout. Positive end expiratory wheeze. Breath sounds equal bilaterally. GASTROINTESTINAL: Abdomen soft, obese, tender to palpation throughout specifically the left upper quadrant. Voluntary guarding. No rebound. No rigidity. MUSCULOSKELETAL: Extremities with 1+ bilateral lower extremity. 2 small abrasions to the bilateral great toes/medial aspects NEUROLOGICAL: Awake and alert. No obvious cranial nerve deficits. Motor grossly within normal limits. Five out of 5 muscle strength in the arms and legs. Normal speech. PSYCHIATRIC: Very hard of hearing Laboratory Laboratory Tests Test 02/03/17 02/03/17 02/03/17 02/03/17 13:37 13:50 14:00 14:30 Lactic Acid Level 4.8 White Blood Count 10.1 Red Blood Count 3.06 Hemoglobin 11.4 Hematocrit 32.6 Mean Corpuscular Volume 106.6 Mean Corpuscular Hemoglobin 37.2 Mean Corpuscular Hemoglobin 34.9 Concent Red Cell Distribution Width 17.8 Platelet Count 24 Mean Platelet Volume 9.1 Neutrophils (%) (Auto) 92.6 Lymphocytes (%) (Auto) 3.3 Monocytes (%) (Auto) 3.5 Eosinophils (%) (Auto) 0.0 Basophils (%) (Auto) 0.6 Neutrophils # (Auto) 9.3 Lymphocytes # (Auto) 0.3 Monocytes # (Auto) 0.4 Eosinophils # (Auto) 0.0 Basophils # (Auto) 0.1 CBC Comment AUTO DIFF Differential Total Cells 100 Counted Neutrophils % (Manual) 78 Band Neutrophils % 16 Lymphocytes % 1 Monocytes % 2 Neutrophils # (Manual) 9.8 Metamyelocytes 3 Differential Comment FINAL DIFF MANUAL Toxic Granulation 1+ Toxic Vacuolation PRESENT Dohle Bodies PRESENT Platelet Estimate LOW Platelet Morphology Comment NORMAL Ovalocytes 1+ Keratocytes OCC Prothrombin Time 20.4 Prothromb Time International 1.8 Ratio Activated Partial 43.5 Thromboplast Time Sodium Level 134 Potassium Level 3.5 Chloride Level 103 Carbon Dioxide Level 17.2 Anion Gap 14 Blood Urea Nitrogen 18 Creatinine 1.45 Estimat Glomerular Filtration 49 Rate Random Glucose 89 Calcium Level 7.9 Magnesium Level 1.2 Total Bilirubin 6.5 Aspartate Amino Transf 46 (AST/SGOT) Alanine Aminotransferase 20 (ALT/SGPT) Alkaline Phosphatase 86 Total Creatine Kinase 57 Troponin I 0.09 Total Protein 5.8 Albumin 2.0 Lipase 59 Blood Gas Puncture Site LT RADIAL Blood Gas Patient Temperature 98.6 Blood Gas HCO3 16 Blood Gas Base Excess -6.9 Blood Gas Oxygen Saturation 96 Arterial Blood pH 7.48 Arterial Blood Partial 22 Pressure CO2 Arterial Blood Partial 99 Pressure O2 Arterial Blood Oxygen Content 13.7 Arterial Blood 2.9 Carboxyhemoglobin Arterial Blood Methemoglobin 0.3 Blood Gas Hemoglobin 10.0 Oxygen Delivery Device NASAL CANNULA Blood Gas Liter Flow 2 Urine Color LIGHT-BROWN Urine Turbidity CLOUDY Urine pH 5.5 Urine Specific [place] 1.015 Urine Protein 100 Urine Glucose (UA) NEG Urine Ketones NEG Urine Occult Blood LARGE Urine Nitrite NEG Urine Bilirubin NEG Urine Urobilinogen 2.0 Urine Leukocyte Esterase MOD Urine RBC 12 Urine WBC 19 Urine Squamous Epithelial 22 Cells Urine Transitional Epithelial 1 Cells Urine Amorphous Sediment RARE Urine Bacteria MANY Urine Mucus FEW Microscopic Urinalysis Comment CATH-CULTURE IND Date/Time Procedure Status Source Growth 02/03/17 14:30 Urine Culture Received Urine Catheterized Urine Pending 02/03/17 13:50 Aerobic Blood Culture Received Blood Peripheral Pending 02/03/17 13:50 Anaerobic Blood Culture Received Blood Peripheral Pending Result Diagram: 02/03/17 1350 02/03/17 1350 Imaging Last 72 hours Impressions Chest X-Ray 02/03/17 1337 Signed Impressions: Service Date/Time: , February 03, 2017 14:11 - CONCLUSION: No acute disease. Todd Cortes Jr., MD Head CT 02/03/17 0000 Signed Impressions: Service Date/Time: , February 03, 2017 15:02 - CONCLUSION: Slight atrophic and small vessel ischemic changes without any evidence for acute hemorrhage or mass effect. Antoine Ramires MD Abdomen/Pelvis CT 02/03/17 0000 Signed Impressions: Service Date/Time: , February 03, 2017 15:04 - CONCLUSION: 1. Abnormal areas of diminished attenuation within the spleen most likely areas of splenic infarction. 2. Resolution of previously seen bilateral pleural effusions, however there is anasarca with slight ascites and diffuse haziness of the mesentery and probable edema involving multiple loops of small bowel wall. Antoine Ramires MD Assessment and Plan Assessment and Plan Neuro/Psych: YSLETA DEL SUR EtOH Thiamine, folate, multivitamin daily Monitor for DTs Oxycodone/morphine for pain management Holding home medications of [place] in light of elevated bilirubin CV: Severe sepsis shock - possibly secondary to infectious etiology Elevated troponin History of TAVR secondary severe aortic stenosis History of a fibrillation with RVR currently normal sinus rhythm with PACs History of hypertension Coronary artery disease status post CABG 3/stents JUANITA 01/08 revealed EF 60-65%. Moderate aVR. Troponin every 6 hours 3 ordered. Latest 0.09. EKG revealed no ST elevation Holding home medication metoprolol 25 mg twice a day, Norvasc 5 mg daily light of hypotension. Diuretics held as well Lasix 40 mg by mouth daily. 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 Start on clear liquid diet Protonix for GI prophylaxis Minna-Colace for bowel regimen : Dahs catheter was placed in the ED. Please please remove when clinically indicated Endo: History diabetes mellitus Sliding-scale insulin with Accu-Cheks to maintain euglycemia/low regimen Renal: Acute kidney injury - likely prerenal CT revealed no signs of hydronephrosis Check urine eosinophils, electrolytes Accurate I's and O's Status post 2 L normal saline in ED Currently on an as at 84 cc an hour. Recheck BMP in a.m. Heme: Macrocytic anemia Thrombocytopenia, chronic secondary to underlying liver disease Will give 1 unit PRBCs and 1 pack platelets prior to central line placement Patient has been evaluated by Dr. Espinoza. No further workup planned at this time. ID: History of strep viridians endocarditis History of T8/T9 discitis UTI Blood cultures 2/UA culture all ordered Start empirically on Zosyn day #1. MSK: PT evaluate and treat FEN: Hypo-magnesium Hyponatremia Receiving 3 g mag sulfate IV 1. Currently on an as 84 cc an hour. Follow-up on phosphorus. Replace electrolytes as clinically indicated Access - Utilize peripheral IV. We'll place central line after receiving platelets and FFP Prophylaxis - GI - Protonix - DVT - SCD/pharmacological prophylaxis contraindicated secondary to thrombocytopenia/underlying coagulopathy Critical Care: The total critical care time was 63 minutes. Time to perform other separately billable procedures was not included in the critical care time. Code Status Full code Discussed Condition With Daughter Tawny Gamez [phone]. Care plan discussed and all questions answered. Problem Qualifiers (1) Hepatitis C: Qualified Code: B18.2 - Chronic hepatitis C without hepatic coma (2) Diabetes mellitus: Qualified Code: E11.8 - Type 2 diabetes mellitus with complication, without long-term current use of insulin (3) Coronary artery disease: Qualified Code: I25.10 - Coronary artery disease involving [place] coronary artery of [place] heart without angina pectoris (4) Atrial fibrillation: Qualified Code: I48.91 - Atrial fibrillation, unspecified type (5) Aortic stenosis: Qualified Code: I35.0 - Aortic valve stenosis, unspecified etiology (6) Right rib fracture: Qualified Code: S22.41XS - Closed fracture of multiple ribs of right side, sequela (7) Varices, esophageal: Qualified Code: I85.00 - Esophageal varices without bleeding, unspecified esophageal varices type (8) Diarrhea: Qualified Code: R19.7 - Diarrhea, unspecified type (9) Hard of hearing: Qualified Code: H90.0 - Conductive hearing loss, bilateral Chetan Russell MD Feb 03, 2017 16:58
[2017-02-03] MEDS ORDERED: BISACODYL 10 MG SUPP RECTAL PRN (17:00)
[2017-02-03] MEDS ORDERED: ONDANSETRON HCL 4 MG/2 ML VIAL IV PRN (17:00)
[2017-02-03] MEDS ORDERED: SENNOSIDES 8.6 MG TAB PO PRN (17:00)
[2017-02-03] MEDS ORDERED: RESP: ALBUTEROL 2.5 MG/3 ML NEB (PRN) INH (17:00)
[2017-02-03] MEDS ORDERED: NOREPINEPHRINE INJ 4 MG in SODIUM CHLOR 0.9% 250 ML INJ 246 ML IV SCH (17:00)
[2017-02-03] MEDS ORDERED: MISCELLANEOUS NURSING INFORMATION XX SCH (17:00)
[2017-02-03] MEDS ORDERED: PHYTONADIONE 5 MG TAB PO ONE (17:00)
[2017-02-03] MEDS ORDERED: MAGNESIUM HYDROXIDE SUSP 30 ML CUP PO PRN (17:00)
[2017-02-03] MEDS ORDERED: LACTULOSE SYRUP 20 GM/30 ML CUP PO PRN (17:00)
[2017-02-03] MEDS ORDERED: CHLORHEXIDINE GLUCONATE 2 % 1 PACK (2 CLOTHS) TOP PRN (17:00)
[2017-02-03] MEDS: MAGNESIUM SULFATE 1 GM PREMIX 100 ML IV SCH ×4 (17:03→17:52)
[2017-02-03] MEDS: ARTIFICIAL TEARS OPTH SOLN 15 ML BTL EACH EYE SCH (17:43)
[2017-02-03] MEDS ORDERED: GLUCAGON 1 MG/ML VIAL OTHER PRN (17:45)
[2017-02-03] MEDS ORDERED: DEXTROSE 50% IN WATER 50 ML VIAL(D50) IV PRN (17:45)
[2017-02-03] MEDS: SODIUM CHLOR 0.9% 1000 ML INJ 1,000 ML IV SCH (17:47)
[2017-02-03 18:02] LABS: INDIRECT BILIRUBIN 4.1 MG/DL (0.0-0.8); TOTAL BILIRUBIN ADULT 6.3 MG/DL (0.2-1.0)
--- NOTE | 2017-02-03 19:03 | RADRPT ---
EXAM DATE/TIME: 02/03/2017 15:18 [facility] COMPARISON: No previous studies available for comparison. INDICATIONS : Left ankle pain and swelling. MEDICAL HISTORY : Cardiovascular disease. Myocardial infarction. Pancreatitis. cirrhosis SURGICAL HISTORY : CABG. ENCOUNTER: Initial ACUITY: 1 day PAIN SCORE: Non-responsive. LOCATION: Left ankle FINDINGS: No definite fractures, or dislocations are identified. No definite lytic or sclerotic lesion is seen . The joint spaces are well maintained , however there are hypertrophic changes involving medial and lateral compartments. CONCLUSION: No definite fracture is seen for technique. KJessica Ramires MD on February 03, 2017 at 19:00 Board Certified Radiologist. This report was verified electronically.
[2017-02-03] MEDS: SODIUM CHLORIDE 0.9% FLUSH 10 ML FLUSH IV FLUSH SCH (19:47)
[2017-02-03] MEDS: MORPHINE SULFATE 8 MG/ML INJ IV PUSH PRN (20:21)
[2017-02-03] MEDS: DOCUSATE SODIUM 50 MG/SENNA 8.6 MG TAB PO SCH (20:51)
[2017-02-03] MEDS: INSULIN NovoLIN REGULAR SUPPLEMENTAL SCALE SQ SCH (20:52)
[2017-02-03] MEDS: PIPERACIL-TAZO 3.375 GM PREMIX 50 ML IV SCH (21:57)
[2017-02-04] VITALS (61 sets, daily range): BP systolic 90–174; BP diastolic 52–112; PULSE 73–91; RESP 14–28; TEMP 97.6–97.8; O2SAT 83–100
[2017-02-04] MEDS: MORPHINE SULFATE 8 MG/ML INJ IV PUSH PRN (01:05)
--- NOTE | 2017-02-04 02:23 | RADRPT ---
EXAM DATE/TIME: 02/04/2017 01:47 [facility] COMPARISON: CHEST SINGLE AP, February 03, 2017, 14:11. INDICATIONS : Central Line Placement MEDICAL HISTORY : Cardiovascular disease. Hypertension SURGICAL HISTORY : Appendectomy. ENCOUNTER: Subsequent ACUITY: 3 days PAIN SCORE: Non-responsive. LOCATION: Bilateral chest FINDINGS: Cardiac valvular prosthesis and cardiomegaly identified. Right jugular line tip overlies the expected location of the SVC. Aortic calcification. Lungs are clear. CONCLUSION: Right jugular line as above. Maninder Berg MD on February 04, 2017 at 2:21 Board Certified Radiologist. This report was verified electronically.
[2017-02-04] MEDS: PIPERACIL-TAZO 3.375 GM PREMIX 50 ML IV SCH ×4 (04:12→21:58)
[2017-02-04] MEDS: CHLORHEXIDINE GLUCONATE 2 % 1 PACK (2 CLOTHS) TOP SCH (04:30)
[2017-02-04 04:44] LABS: AUTOMATED NEUTROPHIL # 18.4 TH/MM3 (1.8-7.7); BASOPHIL % 0.1 % (0.0-2.0); EOSINOPHIL % 0.1 % (0.0-4.0); HEMATOCRIT 31.9 % (39.0-51.0); LYMPH % 3.1 % (9.0-44.0); LYMPHOCYTE # 0.6 TH/MM3 (1.0-4.8); MEAN CELL VOLUME 106.7 FL (80.0-100.0); MEAN CORPUSCULAR HEMOGLOBIN 35.8 PG (27.0-34.0); MEAN CORPUSCULAR HGB CONC 33.5 % (32.0-36.0); MONO % 4.2 % (0.0-8.0); NEUT % 92.5 % (16.0-70.0); PLATELET COUNT 40 TH/MM3 (150-450); RED BLOOD COUNT 2.99 MIL/MM3 (4.50-5.90); RED CELL DISTRIBUTION WIDTH 17.8 % (11.6-17.2); WHITE BLOOD COUNT 19.9 TH/MM3 (4.0-11.0)
[2017-02-04 04:47] LABS: HEMO FLAGS AUTO DIFF
[2017-02-04 04:56] LABS: APTT (PATIENT) 43.1 SEC (24.3-30.1); INTERNATIONAL NORMALIZED RATIO 1.7 RATIO; PROTHROMBIN TIME - PATIENT 18.9 SEC (9.8-11.6)
[2017-02-04 05:22] LABS: ALKALINE PHOSPHATASE 71 U/L (45-117); ALT (GPT) 21 U/L (12-78); ANION GAP 12 MEQ/L (5-15); AST (GOT) 42 U/L (15-37); BICARBONATE 19.4 MEQ/L (21.0-32.0); BLOOD UREA NITROGEN 22 MG/DL (7-18); CHLORIDE 104 MEQ/L (98-107); GLOMERULAR FILTRATION RATE 49 ML/MIN (>89); POTASSIUM 3.9 MEQ/L (3.5-5.1); SODIUM (NA) 135 MEQ/L (136-145); TOTAL BILIRUBIN ADULT 5.4 MG/DL (0.2-1.0)
[2017-02-04 05:43] LABS: BANDS 21 % (0-6); NEUTROPHIL # MANUAL DIFF 19.3 TH/MM3 (1.8-7.7); POLYS (SEG NEUTROPHILS) 76 % (16-70); WBC DIFF SAMPLE 100
[2017-02-04 05:49] LABS: OVALOCYTES 1+ (NORMAL); PLATELET ESTIMATE SMEAR LOW (NORMAL); PLATELET MORPHOLOGY NORMAL (NORMAL); SCAN/DIFF FINAL DIFF MANUAL
[2017-02-04] MEDS: INSULIN NovoLIN REGULAR SUPPLEMENTAL SCALE SQ SCH ×4 (06:24→21:00)
[2017-02-04] MEDS: ARTIFICIAL TEARS OPTH SOLN 15 ML BTL EACH EYE SCH ×3 (08:25→17:57)
[2017-02-04] MEDS: PANTOPRAZOLE SODIUM 40 MG VIAL IV SCH (08:25)
[2017-02-04] MEDS: SODIUM CHLORIDE 0.9% FLUSH 10 ML FLUSH IV FLUSH SCH ×2 (08:30→21:28)
--- NOTE | 2017-02-04 08:54 | HHI.CCPN ---
Subjective Remarks/Hospital Course This is 66-year-old male. Date of admission 02/03/2017. 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 Patient was treated for strep. viridians Endocarditis from September through November 8 weeks with Rocephin. During my consultation was diagnosed with T8/9 discitis via biopsy. Patient has not been on antibiotic's in the interim. Patient has known history of alcoholic use. Despite known hepatitis C genotype 2B and underlying cirrhosis. Patient was found at home today by family members after 2 day history of generalized weakness/unable to get up associated with vague abdominal pain. Patient sees been falling down. He is found at his home by [facility] hypotensive, tachycardic and covered in stool and blood. Patient has received 2 L of normal saline. Pertinent laboratories revealed a macrocytic anemia, thrombocytopenia 24,000 which is close to his baseline secondary to underlying liver disease secondary/hepatitis C cirrhosis, and UA positive for cystitis. Lactic acid was 4.8 Chest x-ray revealed no acute findings. CT abdomen pelvis without contrast revealed hepatosplenomegaly with possible splenic infarct 8.6 and Ms., varices at the GE junction, right rib fractures and bowel edema positive secondary to ascites. Patient has been started on peripheral norepinephrine at 8 mu./m. [employer] requested to admit patient. Patient is currently very hard of hearing but awake and appropriate. Subjective 02/04: Remains on 1 mcg/m norepinephrine. Still complains of low back pain and vague nondescript abdominal pain. Tolerating diet. White cell count to 20, 000. Creatinine improving. Troponin peaked at 0.11 and downward trending currently. Objective Vital Signs Date Time Temp Pulse Resp B/P Pulse Ox O2 Delivery O2 Flow Rate FiO2 02/04/17 06:00 79 02/04/17 06:00 15 126/81 100 02/04/17 04:00 97.6 02/03/17 17:14 Nasal Cannula 2.00 Intake and Output 02/03/17 02/03/17 02/04/17 08:00 16:00 00:00 Intake Total 1056 ml Output Total 65 ml Balance 991 ml Result Diagram: 02/04/17 1429 02/04/17 0405 Other Results Microbiology Date/Time Procedure Status Source Growth 02/03/17 14:30 Urine Culture Received Urine Catheterized Urine Pending 02/03/17 13:50 Aerobic Blood Culture Received Blood Peripheral Pending 02/03/17 13:50 Anaerobic Blood Culture Received Blood Peripheral Pending Imaging Last 72 hours Impressions Chest X-Ray 02/04/17 0000 Signed Impressions: Service Date/Time: Saturday, February 04, 2017 01:47 - CONCLUSION: Right jugular line as above. Maninder Berg MD Chest X-Ray 02/03/17 1337 Signed Impressions: Service Date/Time: , February 03, 2017 14:11 - CONCLUSION: No acute disease. Todd Cortes Jr., MD Head CT 02/03/17 0000 Signed Impressions: Service Date/Time: , February 03, 2017 15:02 - CONCLUSION: Slight atrophic and small vessel ischemic changes without any evidence for acute hemorrhage or mass effect. Antoine Ramires MD Ankle X-Ray 02/03/17 0000 Signed Impressions: Service Date/Time: , February 03, 2017 15:18 - CONCLUSION: No definite fracture is seen for technique. Antoine Ramires MD Abdomen/Pelvis CT 02/03/17 0000 Signed Impressions: Service Date/Time: , February 03, 2017 15:04 - CONCLUSION: 1. Abnormal areas of diminished attenuation within the spleen most likely areas of splenic infarction. 2. Resolution of previously seen bilateral pleural effusions, however there is anasarca with slight ascites and diffuse haziness of the mesentery and probable edema involving multiple loops of small bowel wall. Antoine Ramires MD Objective Remarks GENERAL: 46-year-old male, critically ill currently resting in bed in no acute distress talking on the telephone SKIN: Warm and dry. Well perfused. No rash HEAD: Atraumatic. Normocephalic. EYES: Pupils equal and round around 2 mm bilaterally and reactive. Positive scleral icterus. No injection or drainage. ENT: No nasal bleeding or discharge. Mucous membranes pink and dry. Oropharynx without erythema or exudates. NECK: Trachea midline. No JVD. CARDIOVASCULAR: Regular rate and rhythm. S1, S2. No S4. 2/6 decrescendo diastolic murmur at [place] RESPIRATORY: Diminished breath sounds throughout. Improved end expiratory wheeze. Breath sounds equal bilaterally. GASTROINTESTINAL: Abdomen soft, obese, tender to palpation throughout specifically the left upper quadrant. Voluntary guarding. No rebound. No rigidity. MUSCULOSKELETAL: Extremities with 1+ bilateral lower extremity. 2 small abrasions to the bilateral great toes/medial aspects NEUROLOGICAL: Awake and alert. No obvious cranial nerve deficits. Motor grossly within normal limits. Five out of 5 muscle strength in the arms and legs. Normal speech. PSYCHIATRIC: Very hard of hearing Urinary Catheter: Yes Assessment to: Continue Dash insert reason: Prolonged Immobilization Vascular Central Line Catheter: Yes Date of Insertion: Feb 04, 2017 Line: Central Venous Catheter Side: Right Location: Internal, Jugular A/P Assessment and Plan Neuro/Psych: [place] EtOH Thiamine 100 mg IV daily, folate 1 mg by mouth daily, multivitamin 1 mg by mouth daily daily Monitor for DTs Oxycodone/morphine for pain management Holding home medications of [place] in light of elevated bilirubin CV: Severe sepsis shock - possibly secondary to infectious etiology Elevated troponin History of TAVR secondary severe aortic stenosis History of a fibrillation with RVR currently normal sinus rhythm with PACs History of hypertension Coronary artery disease status post CABG 3/stents JUANITA 01/08 revealed EF 60-65%. Moderate aVR. Troponin every 6 hours 3 ordered. Currently downward trending EKG revealed no ST elevation Holding home medication metoprolol 25 mg twice a day, Norvasc 5 mg daily light of hypotension. Diuretics held as well Lasix 40 mg by mouth daily. 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 Start on clear liquid diet Protonix for GI prophylaxis Minna-Colace for bowel regimen : Dash catheter was placed in the ED. Please please remove when clinically indicated Endo: History diabetes mellitus Sliding-scale insulin with Accu-Cheks to maintain euglycemia/low regimen Renal: Acute kidney injury - likely prerenal CT revealed no signs of hydronephrosis Check urine eosinophils, electrolytes revealed prerenal indices Accurate I's and O's Status post 2 L normal saline in ED continue gentle hydration Currently on an as at 84 cc an hour. Recheck BMP in a.m. revealed creatinine of 1.4. Recheck in a.m. Heme: Leukocytosis Macrocytic anemia Thrombocytopenia, chronic secondary to underlying liver disease Received 1 unit FFP and 1 pack platelets prior to central line placement as AM by Dr. Gallegos Patient has been evaluated by Dr. Espinoza. No further workup planned at this time. ID: History of strep viridans endocarditis History of T8/T9 discitis UTI Blood cultures 2/UA culture 02/03. Results all pending Continue empirically on Zosyn day #2 covering likely cystitis/UTI MSK: PT evaluate and treat FEN: Hypo-magnesium Hyponatremia Receiving 3 g mag sulfate IV 1. Currently on Ovral saline at 84 cc an hour. Follow-up on phosphorus. Replace electrolytes as clinically indicated Access - Utilize peripheral IV. We'll place central line after receiving platelets and FFP Prophylaxis - GI - Protonix - DVT - SCD/pharmacological prophylaxis contraindicated secondary to thrombocytopenia/underlying coagulopathy Critical Care: The total critical care time was 63 minutes. Time to perform other separately billable procedures was not included in the critical care time. Chetan Russell MD Feb 04, 2017 08:54
[2017-02-04] MEDS: DOCUSATE SODIUM 50 MG/SENNA 8.6 MG TAB PO SCH ×2 (09:00→21:27)
[2017-02-04 12:37] LABS: APTT (PATIENT) 44.3 SEC (24.3-30.1)
[2017-02-04] MEDS: SODIUM CHLOR 0.9% 1000 ML INJ 1,000 ML IV SCH (21:28)
[2017-02-05] VITALS (42 sets, daily range): BP systolic 88–128; BP diastolic 51–70; PULSE 69–91; RESP 10–32; TEMP 97.6–98.7; O2SAT 93–100
[2017-02-05] MEDS: CHLORHEXIDINE GLUCONATE 2 % 1 PACK (2 CLOTHS) TOP SCH (04:00)
[2017-02-05 04:06] LABS: BASOPHIL % 0.4 % (0.0-2.0); EOSINOPHIL # 0.1 TH/MM3 (0-0.4); EOSINOPHIL % 1.2 % (0.0-4.0); HEMATOCRIT 28.5 % (39.0-51.0); LYMPH % 6.5 % (9.0-44.0); LYMPHOCYTE # 0.6 TH/MM3 (1.0-4.8); MEAN CORPUSCULAR HEMOGLOBIN 36.5 PG (27.0-34.0); MEAN CORPUSCULAR HGB CONC 33.8 % (32.0-36.0); NEUT % 87.9 % (16.0-70.0); PLATELET COUNT 20 TH/MM3 (150-450); RED BLOOD COUNT 2.64 MIL/MM3 (4.50-5.90); RED CELL DISTRIBUTION WIDTH 17.3 % (11.6-17.2); WHITE BLOOD COUNT 9.1 TH/MM3 (4.0-11.0)
[2017-02-05 04:08] LABS: HEMO FLAGS AUTO DIFF
[2017-02-05] MEDS: PIPERACIL-TAZO 3.375 GM PREMIX 50 ML IV SCH ×3 (04:17→20:26)
[2017-02-05 04:23] LABS: INTERNATIONAL NORMALIZED RATIO 1.7 RATIO; PROTHROMBIN TIME - PATIENT 19.7 SEC (9.8-11.6)
[2017-02-05] MEDS: MORPHINE SULFATE 8 MG/ML INJ IV PUSH PRN (04:28)
[2017-02-05 04:37] LABS: ALKALINE PHOSPHATASE 54 U/L (45-117); ALT (GPT) 20 U/L (12-78); ANION GAP 6 MEQ/L (5-15); AST (GOT) 31 U/L (15-37); BICARBONATE 23.7 MEQ/L (21.0-32.0); BLOOD UREA NITROGEN 21 MG/DL (7-18); CHLORIDE 107 MEQ/L (98-107); GLOMERULAR FILTRATION RATE 70 ML/MIN (>89); MAGNESIUM 1.8 MG/DL (1.5-2.5); POTASSIUM 4.1 MEQ/L (3.5-5.1); SODIUM (NA) 137 MEQ/L (136-145); TOTAL BILIRUBIN ADULT 3.3 MG/DL (0.2-1.0)
[2017-02-05 05:15] LABS: BANDS 15 % (0-6); METAMYELOCYTES 1 % (0-1); NEUTROPHIL # MANUAL DIFF 8.4 TH/MM3 (1.8-7.7); POLYS (SEG NEUTROPHILS) 76 % (16-70); SCAN/DIFF FINAL DIFF MANUAL; WBC DIFF SAMPLE 100
[2017-02-05 05:17] LABS: PLATELET ESTIMATE SMEAR LOW (NORMAL); PLATELET MORPHOLOGY NORMAL (NORMAL)
[2017-02-05 05:18] LABS: DOHLE BODIES PRESENT (NONE SEEN); OVALOCYTES 1+ (NORMAL)
[2017-02-05] MEDS: INSULIN NovoLIN REGULAR SUPPLEMENTAL SCALE SQ SCH ×3 (07:00→20:44)
--- NOTE | 2017-02-05 07:16 | HHI.CCPN ---
Subjective Remarks/Hospital Course This is 66-year-old male. Date of admission 02/03/2017. 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 Patient was treated for strep. viridians Endocarditis from September through November 8 weeks with Rocephin. During my consultation was diagnosed with T8/9 discitis via biopsy. Patient has not been on antibiotic's in the interim. Patient has known history of alcoholic use. Despite known hepatitis C genotype 2B and underlying cirrhosis. Patient was found at home today by family members after 2 day history of generalized weakness/unable to get up associated with vague abdominal pain. Patient sees been falling down. He is found at his home by E [facility] hypotensive, tachycardic and covered in stool and blood. Patient has received 2 L of normal saline. Pertinent laboratories revealed a macrocytic anemia, thrombocytopenia 24,000 which is close to his baseline secondary to underlying liver disease secondary/hepatitis C cirrhosis, and UA positive for cystitis. Lactic acid was 4.8 Chest x-ray revealed no acute findings. CT abdomen pelvis without contrast revealed hepatosplenomegaly with possible splenic infarct 8.6 and Ms., varices at the GE junction, right rib fractures and bowel edema positive secondary to ascites. Patient has been started on peripheral norepinephrine at 8 mu./m. [employer] requested to admit patient. Patient is currently very hard of hearing but awake and appropriate. 02/04: Remains on 1 mcg/m norepinephrine. Still complains of low back pain and vague nondescript abdominal pain. Tolerating diet. White cell count to 20, 000. Creatinine improving. Troponin peaked at 0.11 and downward trending currently. Subjective 02/05: Off all vasopressors. Afebrile. Complains of low back pain and abdomen wreath machine tender to palpation. No bowel movement. Has normalized. Lactate is clear. Creatinine is normalized. Noted low platelets as AM. Objective Vital Signs Date Time Temp Pulse Resp B/P Pulse Ox O2 Delivery O2 Flow Rate FiO2 02/05/17 00:00 81 02/05/17 00:00 97.9 16 100/58 99 02/04/17 20:00 Room Air 02/04/17 19:59 21 02/04/17 09:08 2.00 Intake and Output 02/04/17 02/04/17 02/05/17 08:00 16:00 00:00 Intake Total 1105 ml 1311 ml 916 ml Output Total 1000 ml 1000 ml 775 ml Balance 105 ml 311 ml 141 ml Result Diagram: 02/05/17 0350 02/05/17 0350 Other Results Microbiology Date/Time Procedure Status Source Growth 02/03/17 14:30 Urine Culture - Preliminary Resulted Urine Catheterized Urine IMMATURE GROWTH - REINCUBATE 02/03/17 13:50 Aerobic Blood Culture - Preliminary Resulted Blood Peripheral Gram Positive Cocci 02/03/17 13:50 Anaerobic Blood Culture - Preliminary Resulted Blood Peripheral NO GROWTH IN 1 DAY Imaging Last 72 hours Impressions Chest X-Ray 02/04/17 0000 Signed Impressions: Service Date/Time: Saturday, February 04, 2017 01:47 - CONCLUSION: Right jugular line as above. Maninder Berg MD Chest X-Ray 02/03/17 1337 Signed Impressions: Service Date/Time: January 14:11 - CONCLUSION: No acute disease. Todd Cortes Jr., MD Head CT 02/03/17 0000 Signed Impressions: Service Date/Time: January 15:02 - CONCLUSION: Slight atrophic and small vessel ischemic changes without any evidence for acute hemorrhage or mass effect. Antoine Ramires MD Ankle X-Ray 02/03/17 0000 Signed Impressions: Service Date/Time: January 15:18 - CONCLUSION: No definite fracture is seen for technique. Antoine Ramires MD Abdomen/Pelvis CT 02/03/17 0000 Signed Impressions: Service Date/Time: January 15:04 - CONCLUSION: 1. Abnormal areas of diminished attenuation within the spleen most likely areas of splenic infarction. 2. Resolution of previously seen bilateral pleural effusions, however there is anasarca with slight ascites and diffuse haziness of the mesentery and probable edema involving multiple loops of small bowel wall. Antoine Ramires MD Objective Remarks GENERAL: 46-year-old male, currently resting in bed in no acute distress on room air SKIN: Warm and dry. Well perfused. No rash HEAD: Atraumatic. Normocephalic. EYES: Pupils equal and round around 2 mm bilaterally and reactive. Positive scleral icterus. No injection or drainage. ENT: No nasal bleeding or discharge. Mucous membranes pink and dry. Oropharynx without erythema or exudates. NECK: Trachea midline. No JVD. CARDIOVASCULAR: Regular rate and rhythm. S1, S2. No S4. 2/6 decrescendo diastolic murmur at [place] RESPIRATORY: Diminished breath sounds throughout. Improved end expiratory wheeze. Breath sounds equal bilaterally. GASTROINTESTINAL: Abdomen soft, obese, tender to palpation throughout specifically the left than right upper quadrant. Voluntary guarding. No rebound. No rigidity. MUSCULOSKELETAL: Extremities with 1+ bilateral lower extremity. 2 small abrasions to the bilateral great toes/medial aspects NEUROLOGICAL: Awake and alert. No obvious cranial nerve deficits. Motor grossly within normal limits. Five out of 5 muscle strength in the arms and legs. Normal speech. PSYCHIATRIC: Very hard of hearing Urinary Catheter: Yes Assessment to: Remove Vascular Central Line Catheter: Yes Assessment to: Continue Date of Insertion: Feb 04, 2017 Line: Central Venous Catheter Side: Right Location: Internal, Jugular A/P Assessment and Plan Neuro/Psych: [place] EtOH Thiamine 100 mg IV daily, folate 1 mg by mouth daily, multivitamin 1 mg by mouth daily daily Monitor for DTs Oxycodone/morphine for pain management Holding home medications of [place] in light of elevated bilirubin CV: Severe sepsis shock - possibly secondary to infectious etiology Elevated troponin History of TAVR secondary severe aortic stenosis History of a fibrillation with RVR currently normal sinus rhythm with PACs History of hypertension Coronary artery disease status post CABG 3/stents JUANITA 01/08 revealed EF 60-65%. Moderate aVR. Troponin every 6 hours 3 ordered. Currently downward trending EKG revealed no ST elevation Holding home medication metoprolol 25 mg twice a day, Norvasc 5 mg daily light of hypotension. Diuretics held as well Lasix 40 mg by mouth daily. 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 Advance clear liquid diet to full liquids Protonix for GI prophylaxis Minna-Colace for bowel regimen Check CTA abdomen/pelvis with regards to abnormal CT findings and continued abdominal pain : Dash catheter was placed in the ED. Please please remove when clinically indicated Endo: History diabetes mellitus Sliding-scale insulin with Accu-Cheks to maintain euglycemia/low regimen Renal: Acute kidney injury - likely prerenal resolved CT revealed no signs of hydronephrosis Pending urine eosinophils, electrolytes revealed prerenal indices Accurate I's and O's Status post 2 L normal saline in ED continue gentle hydration Currently on normal saline at 84 cc an hour. Recheck BMP in a.m. revealed creatinine of 1.0. Recheck in a.m. Heme: Leukocytosis Macrocytic anemia Thrombocytopenia, chronic secondary to underlying liver disease Low fibrinogen Received 1 unit FFP and 1 pack platelets prior to central line placement as AM by Dr. Gallegos Patient has been evaluated by Dr. Espinoza. Platelets currently 20. Will reconsult hematology in light of low haptoglobin. In slightly elevated LDH to rule out hemolysis. Peripheral smear pending No plans for transfusion of cryoprecipitate less active bleeding/less than 150. ID: History of strep viridans endocarditis History of T8/T9 discitis UTI Blood cultures 2/UA culture 02/03. Blood culture Results revealed 1 out of 4 positive for gram-positive cocci likely contaminant. Urine negative Continue empirically on Zosyn day #3 overing likely cystitis/UTI MSK: PT evaluate and treat FEN: Hyponatremia Receiving 2 g mag sulfate IV 1. Currently on normal saline at 84 cc an hour.. Replace electrolytes as clinically indicated Access -Right IJ CVL day #2 place 02/[address] Gallegos Prophylaxis - GI - Protonix - DVT - SCD/pharmacological prophylaxis contraindicated secondary to thrombocytopenia/underlying coagulopathy Level II Chetan Russell MD Feb 05, 2017 07:16
[2017-02-05] MEDS: MAGNESIUM SULFATE 1 GM PREMIX 100 ML IV SCH ×2 (08:19→09:49)
[2017-02-05] MEDS: PANTOPRAZOLE SODIUM 40 MG VIAL IV SCH (08:20)
[2017-02-05] MEDS: SODIUM CHLOR 0.9% 1000 ML INJ 1,000 ML IV SCH ×2 (08:20→13:31)
[2017-02-05] MEDS: SODIUM CHLORIDE 0.9% FLUSH 10 ML FLUSH IV FLUSH SCH ×2 (08:20→20:27)
[2017-02-05] MEDS: ARTIFICIAL TEARS OPTH SOLN 15 ML BTL EACH EYE SCH ×3 (08:21→20:26)
[2017-02-05] MEDS: DOCUSATE SODIUM 50 MG/SENNA 8.6 MG TAB PO SCH ×2 (08:21→20:27)
--- NOTE | 2017-02-05 11:04 | EKG ---
Date Performed: 02/03/2017 Time Performed: 18:12:25 PTAGE: 66 years EKG: ATRIAL FIBRILLATION POSSIBLE ANTERIOR MYOCARDIAL INFARCTION , OF INDETERMINATE AGE ABNORMAL ECG PREVIOUS TRACING : 01/14/2017 07.23 DOCTOR: Butch Christianson Interpretating Date/Time 02/05/2017 10:56:55
--- NOTE | 2017-02-05 11:12 | EKG ---
Date Performed: 02/03/2017 Time Performed: 13:44:09 PTAGE: 66 years EKG: ATRIAL FIBRILLATION PROBABLE ANTEROLATERAL MYOCARDIAL INFARCTION ABNORMAL ECG INTERPRETATIO N BASED ON A DEFAULT AGE OF 40 YEARS NO PREVIOUS TRACING DOCTOR: Butch Christianson Interpretating Date/Time 02/05/2017 11:04:01
--- NOTE | 2017-02-05 14:20 | PD.TRANSFR ---
Transfer Summary Admission Date Feb 03, 2017 at 16:08 Transfer Date: Feb 05, 2017 Admitting Diagnosis septic shock Diagnoses: (1) Thrombocytopenia Diagnosis: Secondary (2) Lactic acidosis Diagnosis: Principal (3) Hypomagnesemia Diagnosis: Principal (4) Hyponatremia Diagnosis: Secondary (5) Macrocytic anemia Diagnosis: Secondary (6) Hypoalbuminemia Diagnosis: Secondary (7) Septic shock Diagnosis: Principal (8) Hepatitis C Diagnosis: Principal (9) Diabetes mellitus Diagnosis: Principal (10) History of hypertension Diagnosis: Principal (11) Coronary artery disease Diagnosis: Principal (12) Atrial fibrillation Diagnosis: Principal (13) Elevated troponin I level Diagnosis: Principal (14) Aortic stenosis Diagnosis: Secondary (15) Right rib fracture Diagnosis: Principal (16) Splenic infarction Diagnosis: Principal (17) Varices, esophageal Diagnosis: Principal (18) Varices, gastric Diagnosis: Principal (19) History of acute bacterial endocarditis Diagnosis: Principal (20) Cervical stenosis of spine Diagnosis: Principal (21) Coagulopathy Diagnosis: Principal (22) History of discitis Diagnosis: Principal (23) Diarrhea Diagnosis: Principal (24) Splenomegaly Diagnosis: Principal (25) Hard of hearing Diagnosis: Principal Significant Findings CT revealed splenic infarct. Thrombocytopenia. Transfer Summary/Subjective Please see below Objective Vital Signs Date Time Temp Pulse Resp B/P Pulse Ox O2 Delivery O2 Flow Rate FiO2 02/05/17 08:30 96 21 02/05/17 08:00 79 115/60 02/05/17 08:00 98.7 16 02/05/17 07:00 Room Air 02/04/17 09:08 2.00 Intake and Output 02/04/17 02/04/17 02/05/17 08:00 16:00 00:00 Intake Total 1105 ml 1311 ml 916 ml Output Total 1000 ml 1000 ml 775 ml Balance 105 ml 311 ml 141 ml Result Diagram: 02/05/17 0350 02/05/17 0350 Other Results Microbiology Date/Time Procedure Status Source Growth 02/03/17 14:30 Urine Culture - Final Complete Urine Catheterized Urine Gardnerella Vaginalis Imaging Last 72 hours Impressions Chest X-Ray 02/04/17 0000 Signed Impressions: Service Date/Time: Saturday, February 04, 2017 01:47 - CONCLUSION: Right jugular line as above. Maninder Berg MD Chest X-Ray 02/03/17 1337 Signed Impressions: Service Date/Time: , February 03, 2017 14:11 - CONCLUSION: No acute disease. Todd Cortes Jr., MD Head CT 02/03/17 0000 Signed Impressions: Service Date/Time: , February 03, 2017 15:02 - CONCLUSION: Slight atrophic and small vessel ischemic changes without any evidence for acute hemorrhage or mass effect. Antoine Ramires MD Ankle X-Ray 02/03/17 0000 Signed Impressions: Service Date/Time: , February 03, 2017 15:18 - CONCLUSION: No definite fracture is seen for technique. Antoine Ramires MD Abdomen/Pelvis CT 02/03/17 0000 Signed Impressions: Service Date/Time: , February 03, 2017 15:04 - CONCLUSION: 1. Abnormal areas of diminished attenuation within the spleen most likely areas of splenic infarction. 2. Resolution of previously seen bilateral pleural effusions, however there is anasarca with slight ascites and diffuse haziness of the mesentery and probable edema involving multiple loops of small bowel wall. Antoine Ramires MD Objective Remarks GENERAL: 46-year-old male, currently resting in bed in no acute distress on room air SKIN: Warm and dry. Well perfused. No rash HEAD: Atraumatic. Normocephalic. EYES: Pupils equal and round around 2 mm bilaterally and reactive. Positive scleral icterus. No injection or drainage. ENT: No nasal bleeding or discharge. Mucous membranes pink and dry. Oropharynx without erythema or exudates. NECK: Trachea midline. No JVD. CARDIOVASCULAR: Regular rate and rhythm. S1, S2. No S4. 2/6 decrescendo diastolic murmur at [place] RESPIRATORY: Diminished breath sounds throughout. Improved end expiratory wheeze. Breath sounds equal bilaterally. GASTROINTESTINAL: Abdomen soft, obese, tender to palpation throughout specifically the left than right upper quadrant. Voluntary guarding. No rebound. No rigidity. MUSCULOSKELETAL: Extremities with 1+ bilateral lower extremity. 2 small abrasions to the bilateral great toes/medial aspects NEUROLOGICAL: Awake and alert. No obvious cranial nerve deficits. Motor grossly within normal limits. Five out of 5 muscle strength in the arms and legs. Normal speech. PSYCHIATRIC: Very hard of hearing Date of Insertion: Feb 04, 2017 Line: Central Venous Catheter Side: Right Location: Internal, Jugular A/P Assessment and Plan Neuro/Psych: ENTERPRISE EtOH Thiamine 100 mg IV daily, folate 1 mg by mouth daily, multivitamin 1 mg by mouth daily daily Monitor for DTs Oxycodone/morphine for pain management Holding home medications of Organ in light of elevated bilirubin CV: Severe sepsis shock - possibly secondary to infectious etiology Elevated troponin History of TAVR secondary severe aortic stenosis History of a fibrillation with RVR currently normal sinus rhythm with PACs History of hypertension Coronary artery disease status post CABG 3/stents JUANITA 01/08 revealed EF 60-65%. Moderate aVR. Troponin every 6 hours 3 ordered. Currently downward trending EKG revealed no ST elevation Holding home medication metoprolol 25 mg twice a day, Norvasc 5 mg daily light of hypotension. Diuretics held as well Lasix 40 mg by mouth daily. 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 Advance clear liquid diet to full liquids Protonix for GI prophylaxis Minna-Colace for bowel regimen Check CTA abdomen/pelvis with regards to abnormal CT findings and continued abdominal pain : Dash catheter was placed in the ED. Please please remove when clinically indicated Endo: History diabetes mellitus Sliding-scale insulin with Accu-Cheks to maintain euglycemia/low regimen Renal: Acute kidney injury - likely prerenal resolved CT revealed no signs of hydronephrosis Pending urine eosinophils, electrolytes revealed prerenal indices Accurate I's and O's Status post 2 L normal saline in ED continue gentle hydration Currently on normal saline at 84 cc an hour. Recheck BMP in a.m. revealed creatinine of 1.0. Recheck in a.m. Heme: Leukocytosis Macrocytic anemia Thrombocytopenia, chronic secondary to underlying liver disease Low fibrinogen Received 1 unit FFP and 1 pack platelets prior to central line placement as AM by Dr. Gallegos Patient has been evaluated by Dr. Espinoza. Platelets currently 20. Will reconsult hematology in light of low haptoglobin. In slightly elevated LDH to rule out hemolysis. Peripheral smear pending No plans for transfusion of cryoprecipitate less active bleeding/less than 150. ID: History of strep viridans endocarditis History of T8/T9 discitis UTI Blood cultures 2/UA culture 02/03. Blood culture Results revealed 1 out of 4 positive for gram-positive cocci likely contaminant. Urine negative Continue empirically on Zosyn day #3 overing likely cystitis/UTI MSK: PT evaluate and treat FEN: Hyponatremia Receiving 2 g mag sulfate IV 1. Currently on normal saline at 84 cc an hour.. Replace electrolytes as clinically indicated Access -Right IJ CVL day #2 place 02/[address] Gallegos Prophylaxis - GI - Protonix - DVT - SCD/pharmacological prophylaxis contraindicated secondary to thrombocytopenia/underlying coagulopathy Level II Chetan Russell MD Feb 05, 2017 14:20
[2017-02-05] MEDS ORDERED: IOHEXOL 350 MG/ML 10 ML VIAL (for RAD DIAG) IV ONE (18:42)
[2017-02-06] VITALS (7 sets, daily range): BP systolic 109–118; BP diastolic 68–78; PULSE 65–89; RESP 16–20; TEMP 96.8–97.8; O2SAT 97–100
[2017-02-06] MEDS: PIPERACIL-TAZO 3.375 GM PREMIX 50 ML IV SCH ×4 (04:00→22:40)
[2017-02-06] MEDS: CHLORHEXIDINE GLUCONATE 2 % 1 PACK (2 CLOTHS) TOP SCH (04:00)
[2017-02-06] MEDS: INSULIN NovoLIN REGULAR SUPPLEMENTAL SCALE SQ SCH ×4 (06:41→21:00)
[2017-02-06 08:14] LABS: AUTOMATED NEUTROPHIL # 4.2 TH/MM3 (1.8-7.7); BASOPHIL % 0.5 % (0.0-2.0); EOSINOPHIL # 0.1 TH/MM3 (0-0.4); EOSINOPHIL % 1.7 % (0.0-4.0); HEMATOCRIT 32.6 % (39.0-51.0); LYMPH % 11.7 % (9.0-44.0); LYMPHOCYTE # 0.6 TH/MM3 (1.0-4.8); MEAN CELL VOLUME 107.8 FL (80.0-100.0); MEAN CORPUSCULAR HEMOGLOBIN 35.8 PG (27.0-34.0); MEAN CORPUSCULAR HGB CONC 33.2 % (32.0-36.0); MONO % 4.1 % (0.0-8.0); PLATELET COUNT 22 TH/MM3 (150-450); RED BLOOD COUNT 3.03 MIL/MM3 (4.50-5.90); RED CELL DISTRIBUTION WIDTH 17.9 % (11.6-17.2); WHITE BLOOD COUNT 5.1 TH/MM3 (4.0-11.0)
[2017-02-06 08:18] LABS: HEMO FLAGS AUTO DIFF
[2017-02-06 08:21] LABS: APTT (PATIENT) 37.3 SEC (24.3-30.1); INTERNATIONAL NORMALIZED RATIO 1.3 RATIO; PROTHROMBIN TIME - PATIENT 14.7 SEC (9.8-11.6)
[2017-02-06 08:40] LABS: ANION GAP 6 MEQ/L (5-15); AST (GOT) 31 U/L (15-37); BICARBONATE 23.8 MEQ/L (21.0-32.0); BLOOD UREA NITROGEN 17 MG/DL (7-18); CHLORIDE 108 MEQ/L (98-107); GLOMERULAR FILTRATION RATE 93 ML/MIN (>89); MAGNESIUM 1.7 MG/DL (1.5-2.5); POTASSIUM 4.2 MEQ/L (3.5-5.1); SODIUM (NA) 138 MEQ/L (136-145)
[2017-02-06 08:42] LABS: ALT (GPT) 19 U/L (12-78)
[2017-02-06 08:44] LABS: ALKALINE PHOSPHATASE 59 U/L (45-117); TOTAL BILIRUBIN ADULT 2.7 MG/DL (0.2-1.0)
[2017-02-06] MEDS: SODIUM CHLOR 0.9% 1000 ML INJ 1,000 ML IV SCH ×2 (09:00→16:22)
[2017-02-06 09:04] LABS: DOHLE BODIES PRESENT (NONE SEEN); OVALOCYTES 1+ (NORMAL); PLATELET ESTIMATE SMEAR LOW (NORMAL); PLATELET MORPHOLOGY NORMAL (NORMAL); SCAN/DIFF AUTO DIFF CONFIRMED
--- NOTE | 2017-02-06 10:34 | PD.ONC.PN ---
Subjective Subjective Remarks transferred out of ICU no bleeding extremely weak did not get out of the bed today d./w rn Objective Data Date Time Temp Pulse Resp B/P Pulse Ox O2 Delivery O2 Flow Rate FiO2 02/06/17 08:00 97.0 65 16 113/71 99 02/06/17 04:00 97.8 81 20 109/68 100 02/05/17 23:15 97.6 74 20 112/61 100 02/05/17 22:00 87 02/05/17 20:00 76 02/05/17 20:00 97.8 76 15 107/61 96 02/05/17 19:39 96 21 02/05/17 19:00 99 Room Air 02/05/17 18:00 78 02/05/17 16:00 98.1 69 16 105/56 98 02/05/17 16:00 78 02/05/17 15:43 99 21 02/05/17 14:00 75 97/70 02/05/17 12:00 80 02/05/17 12:00 98.3 74 17 95/62 98 02/06/17 02/06/17 02/06/17 07:00 15:00 23:00 Output Total 500 ml Balance -500 ml Result Diagram: 02/06/17 0754 02/06/17 0754 Laboratory Results Laboratory Tests Test 02/05/17 02/06/17 12:24 07:54 Haptoglobin LESS THAN 10 MG/DL Lactate Dehydrogenase 273 U/L White Blood Count 5.1 TH/MM3 Red Blood Count 3.03 MIL/MM3 Hemoglobin 10.8 GM/DL Hematocrit 32.6 % Mean Corpuscular Volume 107.8 FL Mean Corpuscular Hemoglobin 35.8 PG Mean Corpuscular Hemoglobin 33.2 % Concent Red Cell Distribution Width 17.9 % Platelet Count 22 TH/MM3 Mean Platelet Volume 8.3 FL Neutrophils (%) (Auto) 82.0 % Lymphocytes (%) (Auto) 11.7 % Monocytes (%) (Auto) 4.1 % Eosinophils (%) (Auto) 1.7 % Basophils (%) (Auto) 0.5 % Neutrophils # (Auto) 4.2 TH/MM3 Lymphocytes # (Auto) 0.6 TH/MM3 Monocytes # (Auto) 0.2 TH/MM3 Eosinophils # (Auto) 0.1 TH/MM3 Basophils # (Auto) 0.0 TH/MM3 CBC Comment AUTO DIFF Differential Comment AUTO DIFF CONFIRMED Dohle Bodies PRESENT Platelet Estimate LOW Platelet Morphology Comment NORMAL Ovalocytes 1+ Prothrombin Time 14.7 SEC Prothromb Time International 1.3 RATIO Ratio Activated Partial 37.3 SEC Thromboplast Time Fibrinogen 165 mg/dL Sodium Level 138 MEQ/L Potassium Level 4.2 MEQ/L Chloride Level 108 MEQ/L Carbon Dioxide Level 23.8 MEQ/L Anion Gap 6 MEQ/L Blood Urea Nitrogen 17 MG/DL Creatinine 0.83 MG/DL Estimat Glomerular Filtration 93 ML/MIN Rate Random Glucose 74 MG/DL Lactic Acid Level 1.2 mmol/L Calcium Level 8.3 MG/DL Phosphorus Level 2.6 MG/DL Magnesium Level 1.7 MG/DL Total Bilirubin 2.7 MG/DL Aspartate Amino Transf 31 U/L (AST/SGOT) Alanine Aminotransferase 19 U/L (ALT/SGPT) Alkaline Phosphatase 59 U/L Ammonia LESS THAN 10 MCMOL/L Total Protein 5.4 GM/DL Albumin 1.9 GM/DL Culture Results Microbiology Date/Time Procedure Status Source Growth 02/03/17 13:45 Aerobic Blood Culture - Preliminary Resulted Blood Peripheral Gram Positive Cocci 02/03/17 13:45 Anaerobic Blood Culture - Preliminary Resulted Blood Peripheral NO GROWTH IN 2 DAYS 02/03/17 13:50 Aerobic Blood Culture - Preliminary Resulted Blood Peripheral Staph Sp Coagulase Negative 02/03/17 13:50 Anaerobic Blood Culture - Preliminary Resulted Blood Peripheral NO GROWTH IN 2 DAYS 02/03/17 14:30 Urine Culture - Final Complete Urine Catheterized Urine Gardnerella Vaginalis Administered Medications Medications (Trade) Dose Ordered Sig/Blaire Route PRN Reason Start Time Stop Time Status Last Admin Dose Admin Norepinephrine Bitartrate 4 mg/ Sodium Chloride 250 ml @ 0 mls/hr TITRATE IV 02/03/17 17:00 02/04/17 00:46 Piperacillin Sod/ Tazobactam Sod 50 ml @ 100 mls/hr Q6H IV 02/03/17 22:00 02/06/17 04:00 Sodium Chloride (NS 1000 ml Inj) 1,000 ml @ 84 mls/hr [id number] IV 02/03/17 16:52 02/05/17 13:31 Sodium Chloride (NS Flush) 2 ml BID IV FLUSH 02/03/17 21:00 02/05/17 20:27 Morphine Sulfate (Morphine Inj) 2 mg Q2H PRN IV PUSH PAIN SCALE 6 TO 10 02/03/17 17:00 02/05/17 04:28 Pantoprazole Sodium (Protonix Inj) 40 mg DAILY IV 02/04/17 09:00 02/05/17 08:20 Artificial Tears (Tears Naturale Opth Soln) 1 drop TID EACH EYE 02/03/17 18:00 02/05/17 20:26 Chlorhexidine Gluconate (Chlorhexidine 2% Cloth) 3 pack Taper DAILY@04 TOP 02/04/17 04:00 01/31/18 03:59 02/06/17 04:00 Senna/Docusate Sodium (Minna-Colace) 1 tab BID PO 02/03/17 21:00 02/05/17 20:27 Oxycodone HCl (Roxicodone) 5 mg Q4H PRN PO PAIN SCALE 1 TO 5 02/03/17 17:00 02/04/17 21:27 Objective Remarks GENERAL: nad, chronically ill appearing SKIN: Warm and dry. HEAD: Normocephalic. EYES: No scleral icterus. No injection or drainage. NECK: Supple, trachea midline. No JVD or lymphadenopathy. LYMPHATIC: No adenopathy. CARDIOVASCULAR: Regular rate and rhythm without murmurs. RESPIRATORY: Breath sounds equal bilaterally. No accessory muscle use. GASTROINTESTINAL: Abdomen soft, non-tender, mild tenderness, no rebound, no guarding EXTREMITIES: No cyanosis, edematous Assessment/Plan Problem List: (1) Splenomegaly Status: Chronic (2) Elevated troponin Status: Acute (3) Coagulopathy Status: Resolved (4) Cirrhosis Status: Chronic (5) Pancytopenia Status: Acute (6) Thrombocytopenia Status: Acute (7) Sepsis Status: Acute (8) Alcoholic cirrhosis of liver with ascites Status: Chronic (9) Macrocytic anemia Status: Acute (10) Splenic infarction Status: Acute Assessment 66-year-old male with a past medical history of coronary artery disease status post CABG, history of alcohol abuse, liver cirrhosis, liver disease, history of strep viridans endocarditis, who presents to the emergency department with hypotension. Hematology has been consulted to evaluate thrombocytopenia. 1. Acute on chronic thrombocytopenia likely due to acute illness/DIC/ consumption. - no plt transfusion - check haptoglobin/ldh and fibrinogen - Cryo for dropping fibrinogen today 2. Hyperbilirubinemia with both direct and indirect bilirubin elevation. This is secondary to liver disease. His haptoglobin is also low likely due to liver disease. may have some degree of hemolysis 3. Anemia. - check anemia studies, obtain a stool Hemoccult. 4. Severe sepsis and shock with hypotension. - much better - antibiotics per primary team. 5. Deconditioned: needs PT d/w Max Sebastian MD Feb 06, 2017 10:34
--- NOTE | 2017-02-06 11:26 | HHI.PR ---
Subjective Remarks Follow-up on patient with septic shock. Patient seen and examined today. Patient reports some abdominal pain. Denies any nausea or vomiting. Patient denies any headache or dizziness. Denies any chest pain or shortness of breath. He does report balance problems. Objective Vitals Vital Signs Date Time Temp Pulse Resp B/P Pulse Ox O2 Delivery O2 Flow Rate FiO2 02/06/17 08:00 97.0 65 16 113/71 99 02/06/17 04:00 97.8 81 20 109/68 100 02/05/17 23:15 97.6 74 20 112/61 100 02/05/17 22:00 87 02/05/17 20:00 76 02/05/17 20:00 97.8 76 15 107/61 96 02/05/17 19:39 96 21 02/05/17 19:00 99 Room Air 02/05/17 18:00 78 02/05/17 16:00 98.1 69 16 105/56 98 02/05/17 16:00 78 02/05/17 15:43 99 21 02/05/17 14:00 75 97/70 02/05/17 12:00 80 02/05/17 12:00 98.3 74 17 95/62 98 I/O 02/05/17 02/05/17 02/05/17 02/06/17 02/06/17 02/06/17 07:00 15:00 23:00 07:00 15:00 23:00 Intake Total 1108 ml 1049 ml 186 ml 720 ml Output Total 6550 ml 1650 ml 550 ml 700 ml Balance -5442 ml -601 ml -364 ml 20 ml Intake Oral 420 ml 500 ml 120 ml 720 ml IV Total 688 ml 549 ml 66 ml Output Urine Total 6550 ml 1650 ml 550 ml 700 ml # Bowel Movements 0 0 0 1 Result Diagram: 02/06/17 0754 02/06/17 0754 Imaging Last Impressions Chest X-Ray 02/04/17 0000 Signed Impressions: Service Date/Time: Saturday, February 04, 2017 01:47 - CONCLUSION: Right jugular line as above. Maninder Berg MD Head CT 02/03/17 0000 Signed Impressions: Service Date/Time: January 15:02 - CONCLUSION: Slight atrophic and small vessel ischemic changes without any evidence for acute hemorrhage or mass effect. Antoine Ramires MD Ankle X-Ray 02/03/17 0000 Signed Impressions: Service Date/Time: January 15:18 - CONCLUSION: No definite fracture is seen for technique. Antoine Ramires MD Abdomen/Pelvis CT 02/03/17 0000 Signed Impressions: Service Date/Time: January 15:04 - CONCLUSION: 1. Abnormal areas of diminished attenuation within the spleen most likely areas of splenic infarction. 2. Resolution of previously seen bilateral pleural effusions, however there is anasarca with slight ascites and diffuse haziness of the mesentery and probable edema involving multiple loops of small bowel wall. Antoine Ramires MD Objective Remarks GENERAL: Well-nourished, well-developed patient in NAD. Oriented to self and date. Awake and alert. [place]. SKIN: Warm and dry. No rash. HEENT: Normocephalic. Atraumatic. EOMI. MMM. CARDIOVASCULAR: Regular rate and rhythm. S1, S2 noted. RESPIRATORY: No accessory muscle use. Diminished but clear BS noted. GASTROINTESTINAL: Abdomen soft, nondistended. (+)mild tenderness to palpation in all quadrants. No rigidity noted. Normoactive bowel sounds x4. MUSCULOSKELETAL: No obvious deformities. Extremities without clubbing, cyanosis , or edema. NEUROLOGICAL: Awake and alert. Able to move all extremities. Normal speech. Medications and IVs Current Medications Medications (Trade) Dose Ordered Sig/Blaire Route Start Time Stop Time Status Last Admin Terbutaline Sulfate 1 mg 1 mg UNSCH PRN SQ 02/03/17 16:00 Norepinephrine Bitartrate 4 mg/ Sodium Chloride 250 ml @ 0 mls/hr TITRATE IV 02/03/17 17:00 02/04/17 00:46 Piperacillin Sod/ Tazobactam Sod 50 ml @ 100 mls/hr Q6H IV 02/03/17 22:00 02/06/17 04:00 (NS 1000 ml Inj) 1,000 ml @ 84 mls/hr [id number] IV 02/03/17 16:52 02/05/17 13:31 (NS Flush) 2 ml UNSCH PRN IV FLUSH 02/03/17 17:00 (NS Flush) 2 ml BID IV FLUSH 02/03/17 21:00 02/05/17 20:27 (Morphine Inj) 2 mg Q2H PRN IV PUSH 02/03/17 17:00 02/05/17 04:28 (Protonix Inj) 40 mg DAILY IV 02/04/17 09:00 02/05/17 08:20 (Tears Naturale Opth Soln) 1 drop TID EACH EYE 02/03/17 18:00 02/05/17 20:26 (Zofran Inj) 4 mg Q6H PRN IV 02/03/17 17:00 Miscellaneous Information 1 Q361D XX 02/03/17 17:00 (Chlorhexidine 2% Cloth) 3 pack Taper DAILY@04 TOP 02/04/17 04:00 01/31/18 03:59 02/06/17 04:00 (Chlorhexidine 2% Cloth) 3 pack UNSCH PRN TOP 02/03/17 17:00 (Minna-Colace) 1 tab BID PO 02/03/17 21:00 02/05/17 20:27 (Milk Of Magnesia Liq) 30 ml Q12H PRN PO 02/03/17 17:00 (Senokot) 17.2 mg Q12H PRN PO 02/03/17 17:00 (Dulcolax Supp) 10 mg DAILY PRN RECTAL 02/03/17 17:00 (Lactulose Liq) 30 ml DAILY PRN PO 02/03/17 17:00 (Roxicodone) 5 mg Q4H PRN PO 02/03/17 17:00 02/04/17 21:27 (D50w (Vial) Inj) 50 ml UNSCH PRN IV 02/03/17 17:45 (Glucagon Inj) 1 mg UNSCH PRN OTHER 02/03/17 17:45 Date of Insertion: Feb 04, 2017 Line: Central Venous Catheter Side: Right Location: Internal, Jugular A/P Problem List: (1) Thrombocytopenia ICD Code: D69.6 Status: Chronic (2) Lactic acidosis ICD Code: E87.2 Status: Acute (3) Hypomagnesemia ICD Code: E83.42 Status: Acute (4) Hyponatremia ICD Code: E87.1 Status: Acute (5) Macrocytic anemia ICD Code: D53.9 Status: Acute (6) Hypoalbuminemia ICD Code: E88.09 Status: Acute (7) Septic shock ICD Code: A41.9 Status: Acute (8) Hepatitis C ICD Code: B19.20 Status: Chronic (9) Diabetes mellitus ICD Code: E11.9 Status: Acute (10) History of hypertension ICD Code: Z86.79 Status: Acute (11) Coronary artery disease ICD Code: I25.10 Status: Chronic (12) Atrial fibrillation ICD Code: I48.91 Status: Chronic (13) Elevated troponin I level ICD Code: R74.8 Status: Acute (14) Aortic stenosis ICD Code: I35.0 Status: Chronic (15) Right rib fracture ICD Code: S22.31XA Status: Chronic (16) Splenic infarction ICD Code: D73.5 Status: Acute (17) Varices, esophageal ICD Code: I85.00 Status: Acute (18) Varices, gastric ICD Code: I86.4 Status: Acute (19) History of acute bacterial endocarditis ICD Code: Z86.79 Status: Acute (20) Cervical stenosis of spine ICD Code: M48.02 Status: Chronic (21) Coagulopathy ICD Code: D68.9 Status: Acute (22) History of discitis ICD Code: Z87.39 Status: Acute (23) Diarrhea ICD Code: R19.7 Status: Acute (24) Splenomegaly ICD Code: R16.1 Status: Chronic (25) Hard of hearing ICD Code: H91.90 Status: Chronic Assessment and Plan 66-year-old man with past medical history of 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 Severe septic shock, secondary to infectious etiology, unknown source Elevated troponin Coronary artery disease status post CABG 3/stents History of TAVR secondary to severe aortic stenosis History of atrial fibrillation with RVR currently in normal sinus rhythm with PACs - not on anticoagulation due to coagulopathy History of hypertension - BP controlled off of meds - troponins trending down - EKG revealed no ST elevation - Home medications consisting of metoprolol 25 mg twice a day, Norvasc 5 mg by mouth daily and Lasix 40 mg by mouth daily held secondary to hypotension - JUANITA 01/08 revealed EF 60-65%, moderate AVR History of strep viridans endocarditis History of T8/T9 discitis Suspected UTI - completed 8 weeks of antibiotic therapy with Rocephin - Blood cultures revealed 2 of 4 positive for gram-positive cocci, possibly contaminant. Repeat blood cultures. - UCX positive for Gardnerella - Patient treated empirically with Zosyn, continue - Consult ID Liver cirrhosis secondary to alcohol, hepatitis C Hepatitis C genotype 2B Continued alcohol consumption Splenomegaly with 8.6cm splenic infarct - CT abdomen/pelvis reveals hepatosplenomegaly, 8.6 cm splenic infarct, varices at the GE junction and right rib fractures. - Full liquid diet - continue Thiamine and folic acid daily - CTA ordered for evaluation of continued abdominal pain - report pending - Lasix on hold at present due to hypotension. - ammonia level less than 10 Diabetes mellitus - continue with ISS and accucheks - BS 136 this am THOMAS - likely prerenal - resolved - CT showed no e/o hydronephrosis - avoid nephrotoxic agents Leukocytosis Thrombocytopenia, chronic secondary to underlying liver disease Low fibrinogen Macrocytic anemia - Patient received 1 unit of FFP and 1 pack of platelets - Leukocytosis resolved - Hemoglobin stable - Hematology following - Monitor for evidence of bleeding DVT prophylaxis - avoid chemoprophylaxis secondary to underlying coagulopathy - SCD/MARYELLEN cheryl Discussed with patient and Dr. Garza Attending Statement Attestation Patient seen and examined with Bhakti Joshua PA-C. The exam, history, and the medical decision-making described in the above note were completed with the assistance of the dictating practitioner. I attest that I had a [id number] encounter with the patient on the same day, and personally performed all of the history, exam, or medical decision making. Discussed case with her thoroughly after seeing the patient, reviewed and agreed with the plan. Please see addendum in History, Physical examination. See below for any errata/additional input: Afebrile overnight, denies any urinary symptoms, denies any abdominal pain, cough or shortness of breath. Difficult history because of patient's handicaps. 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 Unknown source. Urine culture grew Gardnerella vaginalis, questionable clinical significance. Previous history of discitis and endocarditis. JUANITA 01/08 revealed EF 60-65%, moderate AVR, no vegetation. Consult infectious disease, continue Zosyn for now. Repeat blood culture. Antihypertensives on hold. Monitor platelet count, renal failure resolved. Patient still complaining of abdominal pain, Follow-up CT scan of the abdomen. 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 Problem Qualifiers (1) Hepatitis C: Qualified Code: B18.2 - Chronic hepatitis C without hepatic coma (2) Diabetes mellitus: Qualified Code: E11.8 - Type 2 diabetes mellitus with complication, without long-term current use of insulin (3) Coronary artery disease: Qualified Code: I25.10 - Coronary artery disease involving kiana coronary artery of kiana heart without angina pectoris (4) Atrial fibrillation: Qualified Code: I48.91 - Atrial fibrillation, unspecified type (5) Aortic stenosis: Qualified Code: I35.0 - Aortic valve stenosis, unspecified etiology (6) Right rib fracture: Qualified Code: S22.41XS - Closed fracture of multiple ribs of right side, sequela (7) Varices, esophageal: Qualified Code: I85.00 - Esophageal varices without bleeding, unspecified esophageal varices type (8) Diarrhea: Qualified Code: R19.7 - Diarrhea, unspecified type (9) Hard of hearing: Qualified Code: H90.0 - Conductive hearing loss, bilateral PeruBhakti dave Feb 06, 2017 11:26 Sammie Garza MD Feb 06, 2017 16:32
[2017-02-06] MEDS: DOCUSATE SODIUM 50 MG/SENNA 8.6 MG TAB PO SCH ×2 (11:27→20:09)
[2017-02-06] MEDS: SODIUM CHLORIDE 0.9% FLUSH 10 ML FLUSH IV FLUSH SCH ×2 (11:28→20:07)
[2017-02-06] MEDS: PANTOPRAZOLE SODIUM 40 MG VIAL IV SCH (11:28)
[2017-02-06] MEDS: ARTIFICIAL TEARS OPTH SOLN 15 ML BTL EACH EYE SCH ×3 (11:29→18:47)
--- NOTE | 2017-02-06 11:51 | MB ---
cc: CHEYANNE MATAMOROS DATE OF : 1950 DATE OF CONSULTATION: 02/05/2017 REASON FOR CONSULTATION: Patient with severe thrombocytopenia. HISTORY OF PRESENT ILLNESS Mr. Stovall is a 66-year-old male who has a history of alcohol abuse, liver cirrhosis, and history of endocarditis, who was brought to the emergency room after he was found to be hypotensive, tachycardiac and covered in stool. He was brought to the emergency department. He was found to be anemic, thrombocytopenic and hypotensive. He was admitted to the ICU and was started on Levophed. The patient received one unit of packed red blood cells and platelets. He also received one unit of FFP. The patient was found to have low haptoglobin and borderline low FFP. The patient was previously seen by hematology service in February of 2016. At that time he had presented with persistent nausea and vomiting. He was found to be in A-fib with RVR and he was started on Cardizem drip. At that time he was also anemic and was coagulopathic with INR of 2.9. He received FFP and vitamin K. The patient continues to drink heavily. He also has a history of coronary artery disease, aortic valve stenosis. The patient has improved clinically since his hospital admission. He is off the Levophed. I have reviewed his labs and his WBC 5.1, hemoglobin is 10.8 and platelet count is 22,000. He does not appear to be bleeding. Again the patient has chronic thrombocytopenia and his platelet count has fluctuated from 20,000 to 80,000. On admission the patient underwent CT of the abdomen and pelvis which showed liver cirrhosis and a large spleen of 18.2 cm. There is an area in the spleen which is about 8.6 cm which appears to be splenic infarction. The patient denies any headaches or blurry vision in the chest pain or shortness of breath. No abdominal pain. No lower extremity edema or actually he has 2+ bilateral lower extremity edema. He keeps saying that he is very weak. REVIEW OF SYSTEMS A comprehensive 14-point review of systems was completed which is negative except as described in the HPI. PAST MEDICAL HISTORY 1. Coronary artery disease 2. Chronic thrombocytopenia. 3. Liver disease 4. Liver cirrhosis 5. Alcohol abuse 6. Hypertension 7. History of endocarditis with strep veridins. 8. Chronic coagulopathy. PAST SURGICAL HISTORY 1. History of TAVR at [facility]. 2. Three vessel CABG. 3. Coronary artery stents. 4. History of EGD. MEDICATIONS: 1. Protonix 40 milligrams IV daily. 2. Zosyn IV q6 hours. 3. Minna-Colace one tablet p.o. b.i.d. 4. Sliding scale insulin. 5. Levophed. 6. Morphine sulfate injection 2 milligrams IV q2 hours p.r.n. 7. Zofran 4 milligrams IV q6 hours p.r.n. 8. DuoNeb 2.5 milligrams INH q2 hours. 9. Milk of Magnesia 30 cc q12 hours p.o. p.r.n. 10. Senokot 17.2 milligrams one tablet p.o. q12 hours p.r.n. 11. ____ 10 milligrams rectally p.r.n. 12. Lactulose 30 cc p.o. daily. 13. Oxycodone 5 milligrams p.o. q4 hours p.r.n. ALLERGIES: LISINOPRIL FAMILY HISTORY: Reviewed, noncontributory to this admission. SOCIAL HISTORY History of half-a-pack of cigarettes per day for 40+ years, history of alcohol abuse. No IV drug use. PHYSICAL EXAMINATION Vital signs: Blood pressure is 107/61, pulse is in the 70s, temperature is 97.8, O2 sats are 96% on FIO2 of 21%. He is on nasal cannula. General: Chronically ill-appearing male in no apparent distress. HEENT: Pupils are equal, round, reactive to light. EOMI. No oral thrush. No oral lesions. Neck is supple. No JVD, no bruits. No lymphadenopathy. Chest: Bilateral scattered rhonchi, inspiratory and expiratory wheezes. Cardiac: S1-S2. There is a diastolic murmur. Abdomen is soft, nontender, nondistended. Bowel sounds are present. Extremities: 2+ lower extremity edema. Neuro: No focal deficits. He is hard of hearing. Psychiatric: Mood and affect is appropriate. LABORATORY DATA WBCs 9.1, hemoglobin is 9.7, platelet count is 20,000, haptoglobin is less than 10. Serum chemistry show sodium of 138, potassium 4.2, chloride is 108, BUN is 17, creatinine is 0.83, lactic acid is 1.2, calcium is 8.3, phosphorus 2.6, magnesium is 1.7, total bilirubin is 2.7, direct bilirubin is 2.2, indirect bilirubin is 4.1, LDH is 400. Coags show INR of 1.3, fibrinogen is 155. Labs were reviewed. Imaging was reviewed. ASSESSMENT/PLAN This is a 66-year-old male with a past medical history of coronary artery disease status post CABG, history of alcohol abuse, liver cirrhosis, liver disease, history of strep viridans endocarditis, who presents to the emergency department with hypotension. Hematology has been consulted to evaluate thrombocytopenia. Acute on chronic thrombocytopenia likely due to acute illness. This is secondary to DIC. There is a possibility of DIC due to current illness. His fibrinogen is low but this can also occur in the setting of liver disease. His peripheral smear was reviewed and RBC fragments were not seen. We will check daily LDH, haptoglobin and fibrinogen levels. I see that [id number] levels have been ordered. Clinically this does not appear to be TTP. We will continue to monitor him and I will not transfuse any platelets unless his platelet count drops below 10,000. Hyperbilirubinemia with both direct and indirect bilirubin elevation. This is secondary to liver disease. His haptoglobin is also low. Anemia. He was given packed red blood cell transfusion on admission. His hemoglobin is 10.8. His MCV is elevated to 107.8 consistent with alcohol abuse. We will check anemia studies, obtain a stool hemoccult. Severe sepsis and shock with hypotension. I agree with antibiotics per primary team. Thank you for allowing me to participate in the care of this patient. I will continue to follow this patient along. MD RICCARDO Rock/POONAM /10:18 AM /10:57 AM
[2017-02-06] MEDS ORDERED: ACETAMINOPHEN 325 MG TAB PO ONE (23:45)
[2017-02-06] MEDS ORDERED: diphenhydrAMINE HCL 25 MG CAP PO ONE (23:45)
[2017-02-07] VITALS (16 sets, daily range): BP systolic 93–117; BP diastolic 49–71; PULSE 62–93; RESP 16–20; TEMP 96.9–97.7; O2SAT 96–100
[2017-02-07] MEDS: INSULIN NovoLIN REGULAR SUPPLEMENTAL SCALE SQ SCH ×4 (04:40→20:32)
[2017-02-07] MEDS: SODIUM CHLORIDE 0.9% FLUSH 10 ML FLUSH IV FLUSH PRN (04:45)
[2017-02-07] MEDS: PIPERACIL-TAZO 3.375 GM PREMIX 50 ML IV SCH ×4 (04:45→23:21)
[2017-02-07 05:12] LABS: INTERNATIONAL NORMALIZED RATIO 1.2 RATIO; PROTHROMBIN TIME - PATIENT 13.7 SEC (9.8-11.6)
--- NOTE | 2017-02-07 08:12 | RADRPT ---
EXAM DATE/TIME: 02/05/2017 18:35 [place] COMPARISON: CT ABDOMEN & PELVIS W/O CONTRAST, February 03, 2017, 15:04. INDICATIONS : Continued abdominal pain. IV CONTRAST: 75 cc Omnipaque 350 (iohexol) IV ORAL CONTRAST: No oral contrast ingested. RADIATION DOSE: 10.99 CTDIvol (mGy) MEDICAL HISTORY : Cardiovascular disease. Stroke SURGICAL HISTORY : CABG Heart valve replacement. ENCOUNTER: Initial ACUITY: 2 days PAIN SCALE: 5/10 LOCATION: Bilateral upper quadrant TECHNIQUE: Volumetric scanning was performed using a multi-row detector CT scanner. The data was post processed with a variety of visualization algorithms including full volume maximum intensity projection, multi -planar sliding thin slab reformation, curved planar reformation, and surface rendering techniques. Using automated exposure control and adjustment of the mA and/or kV according to patient size, radiat ion dose was kept as low as reasonably achievable to obtain optimal diagnostic quality images. DICOM format image data is available electronically for review and comparison. FINDINGS: AORTA/INFLOW: Scattered calcified plaque is seen involving the aorta and its major branches. No hemodynamically sig nificant stenosis or ulceration. No dissection there is a 60% stenosis involving the proximal left re nal artery due to atherosclerotic plaque. The right renal artery is patent. The celiac, SMA, and JUANJO are patent. Splenic artery is patent. OTHER STRUCTURES: Small bilateral pleural effusions which are larger from prior study. There is associated passive atel ectasis. A prosthetic aortic heart valve is noted. Areas of low-attenuation change are again seen inv olving the spleen. There is a lobulated contour to the liver consistent with cirrhosis. Very small vo lume ascitic fluid noted. Anasarca observed. An area of scarring is seen involving the upper pole of the left kidney. Small cyst is seen involving the upper pole the right kidney. CONCLUSION: 1. Approximate 60% stenosis involving the left renal artery secondary to atherosclerotic plaque. The right renal artery is patent. 2. Patent mesenteric vessels. 3. Small bilateral pleural effusions which are larger from the prior study. 4. Cirrhosis. 5. Stable low-density areas involving the spleen likely relating to infarcts. The splenic artery is p atent. 6. Small volume ascites. 7. Anasarca. Todd Cortes Jr., MD on February 07, 2017 at 7:49 Board Certified Radiologist. This report was verified electronically.
[2017-02-07] MEDS: SODIUM CHLORIDE 0.9% FLUSH 10 ML FLUSH IV FLUSH SCH ×2 (09:00→22:04)
[2017-02-07] MEDS: PANTOPRAZOLE SOD 40 MG DELAYED RELEASE TAB PO SCH (09:23)
[2017-02-07] MEDS: DOCUSATE SODIUM 50 MG/SENNA 8.6 MG TAB PO SCH ×3 (09:23→22:04)
[2017-02-07] MEDS: ARTIFICIAL TEARS OPTH SOLN 15 ML BTL EACH EYE SCH ×3 (09:24→18:02)
--- NOTE | 2017-02-07 11:52 | HHI.PR ---
Subjective Remarks Acute on chronic thrombocytopenia/severe septic shock 02/07/17-patient seen and examined, currently afebrile and denies any significant shortness of breath. Hard of hearing Objective Vitals Vital Signs Date Time Temp Pulse Resp B/P Pulse Ox O2 Delivery O2 Flow Rate FiO2 02/07/17 08:00 97.4 83 16 100/55 98 02/07/17 04:05 79 02/07/17 02:40 96.9 62 16 110/61 02/07/17 01:47 96.9 74 16 94/49 02/07/17 01:20 96.9 70 95/54 02/07/17 00:43 97.0 77 16 93/56 02/07/17 00:31 97.1 70 16 110/60 02/07/17 00:12 81 02/07/17 00:08 97.7 93 20 114/61 96 02/06/17 20:38 89 02/06/17 20:24 97.4 83 16 113/73 99 02/06/17 16:00 96.8 67 16 109/68 98 02/06/17 12:00 97.7 70 16 118/78 98 I/O 02/06/17 02/06/17 02/06/17 02/07/17 02/07/17 02/07/17 06:59 14:59 22:59 06:59 14:59 22:59 Intake Total 1440 ml 1255 ml 1533 ml 480 ml Output Total 900 ml 300 ml 300 ml 200 ml Balance 540 ml 955 ml 1233 ml 280 ml Intake Oral 1440 ml 580 ml 480 ml IV Total 1255 ml 506 ml Cryoprecipitate 447 ml Output Urine Total 900 ml 300 ml 300 ml 200 ml # Voids 1 1 # Bowel Movements 1 1 1 Result Diagram: 02/06/17 0754 02/06/17 0754 Imaging Last Impressions Abdomen/Pelvis CT 02/05/17 0000 Signed Impressions: Service Date/Time: Sunday, February 05, 2017 18:35 - CONCLUSION: 1. Approximate 60%% stenosis involving the left renal artery secondary to atherosclerotic plaque. The right renal artery is patent. 2. Patent mesenteric vessels. 3. Small bilateral pleural effusions which are larger from the prior study. 4. Cirrhosis. 5. Stable low-density areas involving the spleen likely relating to infarcts. The splenic artery is patent. 6. Small volume ascites. 7. Anasarca. Todd Cortes Jr., MD Chest X-Ray 02/04/17 0000 Signed Impressions: Service Date/Time: Saturday, February 04, 2017 01:47 - CONCLUSION: Right jugular line as above. Maninder Berg MD Head CT 02/03/17 0000 Signed Impressions: Service Date/Time: , February 03, 2017 15:02 - CONCLUSION: Slight atrophic and small vessel ischemic changes without any evidence for acute hemorrhage or mass effect. Antoine Ramires MD Ankle X-Ray 02/03/17 0000 Signed Impressions: Service Date/Time: , February 03, 2017 15:18 - CONCLUSION: No definite fracture is seen for technique. Antoine Ramires MD Objective Remarks GENERAL: NAD SKIN: Warm and dry. HEAD: Normocephalic. EYES: No scleral icterus. No injection or drainage. NECK: Supple, trachea midline. No JVD or lymphadenopathy. CARDIOVASCULAR: Regular rate and rhythm without murmurs, gallops, or rubs. RESPIRATORY: Breath sounds equal bilaterally. No accessory muscle use. GASTROINTESTINAL: Abdomen soft, non-tender, nondistended. MUSCULOSKELETAL: No cyanosis, or edema. BACK: Nontender without obvious deformity. No CVA tenderness. Date of Insertion: Feb 04, 2017 Line: Central Venous Catheter Side: Right Location: Internal, Jugular A/P Problem List: (1) Thrombocytopenia ICD Code: D69.6 Status: Chronic (2) Lactic acidosis ICD Code: E87.2 Status: Acute (3) Hypomagnesemia ICD Code: E83.42 Status: Acute (4) Hyponatremia ICD Code: E87.1 Status: Acute (5) Macrocytic anemia ICD Code: D53.9 Status: Acute (6) Hypoalbuminemia ICD Code: E88.09 Status: Acute (7) Septic shock ICD Code: A41.9 Status: Acute (8) Hepatitis C ICD Code: B19.20 Status: Chronic (9) Diabetes mellitus ICD Code: E11.9 Status: Acute (10) History of hypertension ICD Code: Z86.79 Status: Acute (11) Coronary artery disease ICD Code: I25.10 Status: Chronic (12) Atrial fibrillation ICD Code: I48.91 Status: Chronic (13) Elevated troponin I level ICD Code: R74.8 Status: Acute (14) Aortic stenosis ICD Code: I35.0 Status: Chronic (15) Right rib fracture ICD Code: S22.31XA Status: Chronic (16) Splenic infarction ICD Code: D73.5 Status: Acute (17) Varices, esophageal ICD Code: I85.00 Status: Acute (18) Varices, gastric ICD Code: I86.4 Status: Acute (19) History of acute bacterial endocarditis ICD Code: Z86.79 Status: Acute (20) Cervical stenosis of spine ICD Code: M48.02 Status: Chronic (21) Coagulopathy ICD Code: D68.9 Status: Acute (22) History of discitis ICD Code: Z87.39 Status: Acute (23) Diarrhea ICD Code: R19.7 Status: Acute (24) Splenomegaly ICD Code: R16.1 Status: Chronic (25) Hard of hearing ICD Code: H91.90 Status: Chronic Assessment and Plan 66-year-old man with Severe septic shock, secondary to infectious etiology, unknown source Coronary artery disease status post CABG 3/stents History of TAVR secondary to severe aortic stenosis History of atrial fibrillation with RVR currently in normal sinus rhythm with PACs - not on anticoagulation due to coagulopathy History of hypertension - Home medications consisting of metoprolol 25 mg twice a day, Norvasc 5 mg by mouth daily and Lasix 40 mg by mouth daily held secondary to hypotension - JUANITA 01/08 revealed EF 60-65%, moderate AVR History of strep viridans endocarditis History of T8/T9 discitis Suspected UTI - completed 8 weeks of antibiotic therapy with Rocephin - Blood cultures revealed 2 of 4 positive for gram-positive cocci, possibly contaminant. - UCX positive for Gardnerella - Patient treated empirically with Zosyn, continue - ID consultation placed by previous hospitalist Liver cirrhosis secondary to alcohol, hepatitis C Hepatitis C genotype 2B Continued alcohol consumption Splenomegaly with 8.6cm splenic infarct - CT abdomen/pelvis reveals hepatosplenomegaly, 8.6 cm splenic infarct, varices at the GE junction and right rib fractures. - continue Thiamine and folic acid daily - CTA ordered for evaluation of continued abdominal pain - report pending - Lasix on hold at present due to hypotension. Diabetes mellitus - continue with ISS and accucheks Acute renal failure - Prerenal, resolved - avoid nephrotoxic agents Leukocytosis Thrombocytopenia, acute on chronic secondary to underlying liver disease Low fibrinogen Macrocytic anemia - Patient received 1 unit of FFP and 1 pack of platelets - Management per hematology DVT prophylaxis - avoid chemoprophylaxis secondary to underlying coagulopathy - SCD/MARYELLEN markuse Problem Qualifiers (1) Hepatitis C: Qualified Code: B18.2 - Chronic hepatitis C without hepatic coma (2) Diabetes mellitus: Qualified Code: E11.8 - Type 2 diabetes mellitus with complication, without long-term current use of insulin (3) Coronary artery disease: Qualified Code: I25.10 - Coronary artery disease involving [place] coronary artery of [place] heart without angina pectoris (4) Atrial fibrillation: Qualified Code: I48.91 - Atrial fibrillation, unspecified type (5) Aortic stenosis: Qualified Code: I35.0 - Aortic valve stenosis, unspecified etiology (6) Right rib fracture: Qualified Code: S22.41XS - Closed fracture of multiple ribs of right side, sequela (7) Varices, esophageal: Qualified Code: I85.00 - Esophageal varices without bleeding, unspecified esophageal varices type (8) Diarrhea: Qualified Code: R19.7 - Diarrhea, unspecified type (9) Hard of hearing: Qualified Code: H90.0 - Conductive hearing loss, bilateral Iain Peña MD Feb 07, 2017 11:51 Qualified Code: I85.00 - Esophageal varices without bleeding, unspecified esophageal varices type (8) Diarrhea: Qualified Code: R19.7 - Diarrhea, unspecified type (9) Hard of hearing: Qualified Code: H90.0 - Conductive hearing loss, bilateral Iain Peña MD Feb 07, 2017 11:51
--- NOTE | 2017-02-07 22:12 | PD.ID.CON ---
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 Review of Systems Except as stated in HPI: all other systems reviewed are Neg Past Family Social History Allergies: Coded Allergies: Lisinopril (Verified Allergy, Intermediate, 02/03/17) Past Medical History deaf History of gastritis EtOH History of atrial fibrillation Coronary artery disease History of hypertension History diabetes mellitus Right rib fractures History of his gastroesophageal varices History of strep viridians endocarditis/T8 and 9 discitis Chronic thrombus cytopenia secondary to hepatitis C/EtOH cirrhosis Liver cirrhosis Chronic coagulopathy secondary to underlying chronic liver disease Past Surgical History History of TAVR - [place] 3 vessel CABG Coronary artery stents History of EGD Active Ordered Medications Reviewed in EMR: abx include: zosyn Family History EtOH in father. Social History Smoked one half pack per day from age [age]. History of EtOH use ongoing. No IV drug use documented Physical Exam Vital Signs Vital Signs Date Time Temp Pulse Resp B/P Pulse Ox O2 Delivery O2 Flow Rate FiO2 02/07/17 20:00 97.6 70 16 117/71 100 02/07/17 16:24 68 02/07/17 16:00 97.2 79 16 110/68 100 02/07/17 12:01 85 02/07/17 12:00 97.0 75 18 106/60 97 02/07/17 08:00 97.4 83 16 100/55 98 02/07/17 07:52 71 02/07/17 04:05 79 02/07/17 02:40 96.9 62 16 110/61 02/07/17 01:47 96.9 74 16 94/49 02/07/17 01:20 96.9 70 95/54 02/07/17 00:43 97.0 77 16 93/56 02/07/17 00:31 97.1 70 16 110/60 02/07/17 00:12 81 02/07/17 00:08 97.7 93 20 114/61 96 Physical Exam CONSTITUTIONAL/GENERAL: This is an adequately nourished patient, in no apparent distress. TUBES/LINES/DRAINS: SKIN: No jaundice, rashes, or lesions. . Skin temperature appropriate. Not diaphoretic. HEAD: Atraumatic. Normocephalic. EYES: Pupils equal and round and reactive. Extraocular motions intact. No scleral icterus. No injection or drainage. Fundi not examined. ENT: Pt is deaf. Nose without bleeding or purulent drainage. oral mucosae without visible erythema, exudates, masses, or lesions. NECK: Trachea midline. Supple, nontender. CARDIOVASCULAR: Regular rate and rhythm without murmurs, gallops, or rubs. No JVD. Peripheral pulses symmetric. RESPIRATORY/CHEST: Symmetric, unlabored respirations. Clear to auscultation. Breath sounds equal bilaterally. No wheezes, rales, or rhonchi. GASTROINTESTINAL: Abdomen soft, non-tender, nondistended. No hepato-splenomegaly , or palpable masses. No guarding. Bowel sounds present. GENITOURINARY: Without palpable bladder distension. MUSCULOSKELETAL: Extremities without clubbing, cyanosis, or edema. No joint tenderness or effusion noted. No calf tenderness. No mottling or clubbing. BACK: no tenderness to plapation over spine LYMPHATICS: No palpable cervical or supraclavicular adenopathy. NEUROLOGICAL: Awake and alert. Motor and sensory grossly within normal limits. Follows commands. Speech is difficult to understand - baseline Moves all extremities. PSYCHIATRIC: No obvious anxiety/depression. no apparent hallucinations or other psychotic thought process. Laboratory Laboratory Tests Test 02/06/17 02/07/17 22:59 04:40 Blood Bank Comment Haptoglobin LESS THAN 10 Prothrombin Time 13.7 Prothromb Time International 1.2 Ratio Fibrinogen 239 Lactate Dehydrogenase 254 Date/Time Procedure Status Source Growth 02/07/17 10:00 Aerobic Blood Culture Received Blood Peripheral Pending 02/07/17 10:00 Anaerobic Blood Culture Received Blood Peripheral Pending 02/06/17 20:00 Aerobic Blood Culture - Preliminary Resulted Blood Peripheral NO GROWTH IN 1 DAY 02/06/17 20:00 Anaerobic Blood Culture - Preliminary Resulted Blood Peripheral NO GROWTH IN 1 DAY 02/03/17 14:30 Urine Culture - Final Complete Urine Catheterized Urine Gardnerella Vaginalis 02/03/17 13:50 Aerobic Blood Culture - Final Resulted Blood Peripheral Staphylococcus Epidermidis 02/03/17 13:50 Anaerobic Blood Culture - Preliminary Resulted Blood Peripheral NO GROWTH IN 4 DAYS Result Diagram: 02/06/17 0754 02/06/17 0754 Imaging Last Impressions Abdomen/Pelvis CT 02/05/17 0000 Signed Impressions: Service Date/Time: Sunday, February 05, 2017 18:35 - CONCLUSION: 1. Approximate 60%% stenosis involving the left renal artery secondary to atherosclerotic plaque. The right renal artery is patent. 2. Patent mesenteric vessels. 3. Small bilateral pleural effusions which are larger from the prior study. 4. Cirrhosis. 5. Stable low-density areas involving the spleen likely relating to infarcts. The splenic artery is patent. 6. Small volume ascites. 7. Anasarca. Todd Cortes Jr., MD Chest X-Ray 02/04/17 0000 Signed Impressions: Service Date/Time: Saturday, February 04, 2017 01:47 - CONCLUSION: Right jugular line as above. Maninder Berg MD Head CT 02/03/17 0000 Signed Impressions: Service Date/Time: January 15:02 - CONCLUSION: Slight atrophic and small vessel ischemic changes without any evidence for acute hemorrhage or mass effect. Antoine Ramires MD Ankle X-Ray 02/03/17 0000 Signed Impressions: Service Date/Time: January 15:18 - CONCLUSION: No definite fracture is seen for technique. Antoine Ramires MD Assessment and Plan Assessment and Plan FUO H/o TAVR Vir strep T spine diskitis in September Coag negative staph bacteremia ? significance cont current zosyn for now fu blood clx if same morphology will need to be w/u for endocarditis MRI of the back Nadine Wadsworth MD Feb 07, 2017 22:12
--- NOTE | 2017-02-07 22:26 | PD.ONC.PN ---
Subjective Subjective Remarks awake and alert appears comfortable no bleeding afebrile today Objective Data Date Time Temp Pulse Resp B/P Pulse Ox O2 Delivery O2 Flow Rate FiO2 02/07/17 20:00 97.6 70 16 117/71 100 02/07/17 16:24 68 02/07/17 16:00 97.2 79 16 110/68 100 02/07/17 12:01 85 02/07/17 12:00 97.0 75 18 106/60 97 02/07/17 08:00 97.4 83 16 100/55 98 02/07/17 07:52 71 02/07/17 04:05 79 02/07/17 02:40 96.9 62 16 110/61 02/07/17 01:47 96.9 74 16 94/49 02/07/17 01:20 96.9 70 95/54 02/07/17 00:43 97.0 77 16 93/56 02/07/17 00:31 97.1 70 16 110/60 02/07/17 00:12 81 02/07/17 00:08 97.7 93 20 114/61 96 02/07/17 02/07/17 02/07/17 07:00 15:00 23:00 Intake Total 1533 ml 1680 ml 805 ml Output Total 300 ml 600 ml Balance 1233 ml 1080 ml 805 ml Result Diagram: 02/06/17 0754 02/06/17 0754 Laboratory Results Laboratory Tests Test 02/06/17 02/07/17 22:59 04:40 Blood Bank Comment Haptoglobin LESS THAN 10 MG/DL Prothrombin Time 13.7 SEC Prothromb Time International 1.2 RATIO Ratio Fibrinogen 239 mg/dL Lactate Dehydrogenase 254 U/L Culture Results Microbiology Date/Time Procedure Status Source Growth 02/06/17 14:25 Aerobic Blood Culture - Preliminary Resulted Blood Peripheral NO GROWTH IN 1 DAY 02/06/17 14:25 Anaerobic Blood Culture - Preliminary Resulted Blood Peripheral NO GROWTH IN 1 DAY 02/06/17 14:40 Aerobic Blood Culture - Preliminary Resulted Blood Peripheral NO GROWTH IN 1 DAY 02/06/17 14:40 Anaerobic Blood Culture - Preliminary Resulted Blood Peripheral NO GROWTH IN 1 DAY 02/06/17 20:00 Aerobic Blood Culture - Preliminary Resulted Blood Peripheral NO GROWTH IN 1 DAY 02/06/17 20:00 Anaerobic Blood Culture - Preliminary Resulted Blood Peripheral NO GROWTH IN 1 DAY 02/07/17 10:00 Aerobic Blood Culture Received Blood Peripheral Pending 02/07/17 10:00 Anaerobic Blood Culture Received Blood Peripheral Pending Administered Medications Medications (Trade) Dose Ordered Sig/Blaire Route PRN Reason Start Time Stop Time Status Last Admin Dose Admin Piperacillin Sod/ Tazobactam Sod (Zosyn 3.375 Gm Premix) 50 ml @ 100 mls/hr Q6H IV 02/03/17 22:00 02/07/17 15:15 Sodium Chloride (NS Flush) 2 ml UNSCH PRN IV FLUSH FLUSH AFTER USING IV ACCESS 02/03/17 17:00 02/07/17 04:45 Sodium Chloride (NS Flush) 2 ml BID IV FLUSH 02/03/17 21:00 02/07/17 22:04 Morphine Sulfate (Morphine Inj) 2 mg Q2H PRN IV PUSH PAIN SCALE 6 TO 10 02/03/17 17:00 02/05/17 04:28 Artificial Tears (Tears Naturale Opth Soln) 1 drop TID EACH EYE 02/03/17 18:00 02/07/17 18:02 Senna/Docusate Sodium (Minna-Colace) 1 tab BID PO 02/03/17 21:00 02/07/17 22:04 Oxycodone HCl (Roxicodone) 5 mg Q4H PRN PO PAIN SCALE 1 TO 5 02/03/17 17:00 02/04/17 21:27 Pantoprazole Sodium (Protonix) 40 mg DAILY PO 02/07/17 09:00 02/07/17 09:23 Objective Remarks GENERAL: nad, hard of hearing SKIN: Warm and dry. HEAD: Normocephalic. EYES: No scleral icterus. No injection or drainage. NECK: Supple, trachea midline. No JVD or lymphadenopathy. LYMPHATIC: No adenopathy. CARDIOVASCULAR: Regular rate and rhythm without murmurs. RESPIRATORY: Breath sounds equal bilaterally. No accessory muscle use. GASTROINTESTINAL: Abdomen soft, non-tender, nondistended. EXTREMITIES: No cyanosis, or edema. 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 Hematology has been consulted to evaluate thrombocytopenia. 1. Acute on chronic thrombocytopenia likely due to acute illness/DIC/ consumption. - no bleeding - check CBC in AM 2. Hyperbilirubinemia with both direct and indirect bilirubin elevation. This is secondary to liver disease. His haptoglobin is also low likely due to liver disease. may have some degree of hemolysis 3. Anemia. - anemia studies pending , stool Hemoccult pending 4. Severe sepsis and shock with hypotension. - hypotension resolved - antibiotics per primary team and ID 5. Coagulopathy due to sepsis and liver disease - check daily fibrinogen - received cryo yesterday - transfuse cryo to keep fibrinogen > 150 d/w Max Sebastian MD Feb 07, 2017 22:26
[2017-02-08] VITALS (12 sets, daily range): BP systolic 93–124; BP diastolic 55–82; PULSE 74–91; RESP 16–18; TEMP 96.6–97.6; O2SAT 96–98
[2017-02-08] MEDS: SODIUM CHLORIDE 0.9% FLUSH 10 ML FLUSH IV FLUSH PRN (04:06)
[2017-02-08] MEDS: PIPERACIL-TAZO 3.375 GM PREMIX 50 ML IV SCH ×3 (04:07→16:25)
[2017-02-08] MEDS: INSULIN NovoLIN REGULAR SUPPLEMENTAL SCALE SQ SCH ×4 (04:10→21:38)
[2017-02-08 05:27] LABS: TRANSFERRIN IRON PROFILE 118 MG/DL (200-360)
[2017-02-08 05:52] LABS: LDH SERUM 233 U/L (87-241)
[2017-02-08] MEDS: PANTOPRAZOLE SOD 40 MG DELAYED RELEASE TAB PO SCH (08:38)
[2017-02-08] MEDS: SODIUM CHLORIDE 0.9% FLUSH 10 ML FLUSH IV FLUSH SCH ×2 (08:38→21:39)
[2017-02-08] MEDS: DOCUSATE SODIUM 50 MG/SENNA 8.6 MG TAB PO SCH ×2 (08:38→21:39)
[2017-02-08] MEDS: ARTIFICIAL TEARS OPTH SOLN 15 ML BTL EACH EYE SCH ×3 (08:39→17:11)
--- NOTE | 2017-02-08 11:35 | HHI.PR ---
Subjective Remarks Follow-up Acute on chronic thrombocytopenia/severe septic shock/fever of unknown origin 02/07/17-patient seen and examined, currently afebrile and denies any significant shortness of breath. Hard of hearing 02/08/17-patient seen and examined, and complains of back pain otherwise afebrile. States he was awoken last night at 5 PM and very upset about it. No other issues Objective Vitals Vital Signs Date Time Temp Pulse Resp B/P Pulse Ox O2 Delivery O2 Flow Rate FiO2 02/08/17 08:00 96.8 83 18 124/76 97 02/08/17 04:06 74 02/08/17 04:00 97.6 83 18 93/55 97 02/08/17 00:53 97.5 76 16 113/82 97 02/08/17 00:02 77 02/07/17 20:01 78 02/07/17 20:00 97.6 70 16 117/71 100 02/07/17 16:24 68 02/07/17 16:00 97.2 79 16 110/68 100 02/07/17 12:01 85 02/07/17 12:00 97.0 75 18 106/60 97 I/O 02/07/17 02/07/17 02/07/17 02/08/17 02/08/17 02/08/17 07:00 15:00 23:00 07:00 15:00 23:00 Intake Total 1533 ml 1680 ml 805 ml 1060 ml 840 ml Output Total 300 ml 600 ml 550 ml 850 ml 275 ml Balance 1233 ml 1080 ml 255 ml 210 ml 565 ml Intake Oral 580 ml 1680 ml 840 ml IV Total 506 ml 805 ml 1060 ml Cryoprecipitate 447 ml Output Urine Total 300 ml 600 ml 550 ml 850 ml 275 ml # Voids 1 1 1 # Bowel Movements 1 1 1 Result Diagram: 02/06/17 0754 02/06/17 0754 Imaging Last Impressions Abdomen/Pelvis CT 02/05/17 0000 Signed Impressions: Service Date/Time: Sunday, February 05, 2017 18:35 - CONCLUSION: 1. Approximate 60%% stenosis involving the left renal artery secondary to atherosclerotic plaque. The right renal artery is patent. 2. Patent mesenteric vessels. 3. Small bilateral pleural effusions which are larger from the prior study. 4. Cirrhosis. 5. Stable low-density areas involving the spleen likely relating to infarcts. The splenic artery is patent. 6. Small volume ascites. 7. Anasarca. Todd Cortes Jr., MD Chest X-Ray 02/04/17 0000 Signed Impressions: Service Date/Time: Saturday, February 04, 2017 01:47 - CONCLUSION: Right jugular line as above. Maninder Berg MD Head CT 02/03/17 0000 Signed Impressions: Service Date/Time: , February 03, 2017 15:02 - CONCLUSION: Slight atrophic and small vessel ischemic changes without any evidence for acute hemorrhage or mass effect. Antoine Ramires MD Ankle X-Ray 02/03/17 0000 Signed Impressions: Service Date/Time: , February 03, 2017 15:18 - CONCLUSION: No definite fracture is seen for technique. Antoine Ramires MD Objective Remarks GENERAL: NAD and hard of hearing SKIN: Warm and dry. HEAD: Normocephalic. EYES: No scleral icterus. No injection or drainage. NECK: Supple, trachea midline. No JVD or lymphadenopathy. CARDIOVASCULAR: Regular rate and rhythm without murmurs, gallops, or rubs. RESPIRATORY: Breath sounds equal bilaterally. No accessory muscle use. GASTROINTESTINAL: Abdomen soft, non-tender, nondistended. MUSCULOSKELETAL: No cyanosis, or edema. BACK: Nontender without obvious deformity. No CVA tenderness. Date of Insertion: Feb 04, 2017 Line: Central Venous Catheter Side: Right Location: Internal, Jugular A/P Problem List: (1) Thrombocytopenia ICD Code: D69.6 Status: Chronic (2) Lactic acidosis ICD Code: E87.2 Status: Acute (3) Hypomagnesemia ICD Code: E83.42 Status: Acute (4) Hyponatremia ICD Code: E87.1 Status: Acute (5) Macrocytic anemia ICD Code: D53.9 Status: Acute (6) Hypoalbuminemia ICD Code: E88.09 Status: Acute (7) Septic shock ICD Code: A41.9 Status: Acute (8) Hepatitis C ICD Code: B19.20 Status: Chronic (9) Diabetes mellitus ICD Code: E11.9 Status: Acute (10) History of hypertension ICD Code: Z86.79 Status: Acute (11) Coronary artery disease ICD Code: I25.10 Status: Chronic (12) Atrial fibrillation ICD Code: I48.91 Status: Chronic (13) Elevated troponin I level ICD Code: R74.8 Status: Acute (14) Aortic stenosis ICD Code: I35.0 Status: Chronic (15) Right rib fracture ICD Code: S22.31XA Status: Chronic (16) Splenic infarction ICD Code: D73.5 Status: Acute (17) Varices, esophageal ICD Code: I85.00 Status: Acute (18) Varices, gastric ICD Code: I86.4 Status: Acute (19) History of acute bacterial endocarditis ICD Code: Z86.79 Status: Acute (20) Cervical stenosis of spine ICD Code: M48.02 Status: Chronic (21) Coagulopathy ICD Code: D68.9 Status: Acute (22) History of discitis ICD Code: Z87.39 Status: Acute (23) Diarrhea ICD Code: R19.7 Status: Acute (24) Splenomegaly ICD Code: R16.1 Status: Chronic (25) Hard of hearing ICD Code: H91.90 Status: Chronic Assessment and Plan 66-year-old man with Severe septic shock, secondary to infectious etiology, unknown source-resolved Coronary artery disease status post CABG 3/stents History of TAVR secondary to severe aortic stenosis History of atrial fibrillation with RVR currently in normal sinus rhythm with PACs - not on anticoagulation due to coagulopathy History of hypertension - Home medications consisting of metoprolol 25 mg twice a day, Norvasc 5 mg by mouth daily and Lasix 40 mg by mouth daily held secondary to hypotension - JUANITA 01/08 revealed EF 60-65%, moderate AVR Fever of unknown origin History of strep viridans endocarditis History of T8/T9 discitis Suspected UTI - completed 8 weeks of antibiotic therapy with Rocephin - Blood cultures revealed 2 of 4 positive for gram-positive cocci, possibly contaminant. - UCX positive for Gardnerella - Patient treated empirically with Zosyn per infectious disease specialist - MRI of the thoracic spine pending today 02/08/17 Liver cirrhosis secondary to alcohol, hepatitis C Hepatitis C genotype 2B Continued alcohol consumption Splenomegaly with 8.6cm splenic infarct - CT abdomen/pelvis reveals hepatosplenomegaly, 8.6 cm splenic infarct, varices at the GE junction and right rib fractures. - continue Thiamine and folic acid daily - Lasix on hold at present due to hypotension. Diabetes mellitus - continue with ISS and accucheks Acute renal failure - Prerenal, resolved - avoid nephrotoxic agents Leukocytosis Thrombocytopenia, acute on chronic secondary to underlying liver disease Low fibrinogen Macrocytic anemia - Patient received 1 unit of FFP and 1 pack of platelets - Management per hematology DVT prophylaxis - avoid chemoprophylaxis secondary to underlying coagulopathy - SCD/MARYELLEN hose Discharge Planning Discharge when medically clear by infectious disease specialist Problem Qualifiers (1) Hepatitis C: Qualified Code: B18.2 - Chronic hepatitis C without hepatic coma (2) Diabetes mellitus: Qualified Code: E11.8 - Type 2 diabetes mellitus with complication, without long-term current use of insulin (3) Coronary artery disease: Qualified Code: I25.10 - Coronary artery disease involving [place] coronary artery of [place] heart without angina pectoris (4) Atrial fibrillation: Qualified Code: I48.91 - Atrial fibrillation, unspecified type (5) Aortic stenosis: Qualified Code: I35.0 - Aortic valve stenosis, unspecified etiology (6) Right rib fracture: Qualified Code: S22.41XS - Closed fracture of multiple ribs of right side, sequela (7) Varices, esophageal: Qualified Code: I85.00 - Esophageal varices without bleeding, unspecified esophageal varices type (8) Diarrhea: Qualified Code: R19.7 - Diarrhea, unspecified type (9) Hard of hearing: Qualified Code: H90.0 - Conductive hearing loss, bilateral Iain Peña MD Feb 08, 2017 11:35
[2017-02-08] MEDS ORDERED: GETGO ROLLING W1 MI1 (12:43)
--- NOTE | 2017-02-08 13:18 | ECHRPT ---
Indication: R/O VEGETATIONS CONCLUSIONS This was a limited study for endocarditis.Normal left ventricular size. Wall thickness is normal. The left ventricular systolic function is grossly normal on limited imaging. The right ventricular size is normal. The right ventricular systoilc function is normal. No significant vegetations visible.This is a bioprosthetic valve.No significant vegetations visible. Not seen well. BP: 93 / 55 HR: 83 Rhythm: Atrial fibrillation MEASUREMENTS (Male / Female) Normal Values Technical Quality:Technically difficult study 2D ECHO LVOT Diameter 2.5 cm Aortic Root Diameter 3.4 cm DOPPLER AV Peak Velocity 290.0 cm/s AV Peak Gradient 33.6 mmHg AV Mean Gradient 18.3 mmHg AV Velocity Time Integral 49.5 cm LVOT Peak Velocity 126.0 cm/s LVOT Peak Gradient 6.4 mmHg LVOT Velocity Time Integral 21.8 cm LVOT Cardiac Index 3713.1 cm/minm AV Area Cont Eq vti 2.2 cm AV Area Cont Eq pk 2.1 cm FINDINGS LEFT VENTRICLE Normal left ventricular size. Wall thickness is normal. The left ventricular systolic function is grossly normal on limited imaging. RIGHT VENTRICLE The right ventricular size is normal. The right ventricular systoilc function is normal. MITRAL VALVE No significant vegetations visible. AORTIC VALVE This is a bioprosthetic valve. TRICUSPID VALVE No significant vegetations visible. PULMONARY VALVE Not seen well. Shanita Kim MD, FACC (Electronically Signed) Final Date:08 February 2017 13:18
--- NOTE | 2017-02-08 14:38 | PD.ONC.PN ---
Subjective Subjective Remarks Afebrile overnight. Patient resting in bed in nad. No reported events today by nursing staff. Objective Data Date Time Temp Pulse Resp B/P Pulse Ox O2 Delivery O2 Flow Rate FiO2 02/08/17 12:00 96.6 90 18 119/82 96 02/08/17 08:00 96.8 83 18 124/76 97 02/08/17 04:06 74 02/08/17 04:00 97.6 83 18 93/55 97 02/08/17 00:53 97.5 76 16 113/82 97 02/08/17 00:02 77 02/07/17 20:01 78 02/07/17 20:00 97.6 70 16 117/71 100 02/07/17 16:24 68 02/07/17 16:00 97.2 79 16 110/68 100 02/08/17 02/08/17 02/08/17 07:00 15:00 23:00 Intake Total 1060 ml 1560 ml Output Total 850 ml 275 ml Balance 210 ml 1285 ml Result Diagram: 02/06/17 0754 02/06/17 0754 Laboratory Results Laboratory Tests Test 02/08/17 04:10 Haptoglobin LESS THAN 8 MG/DL Fibrinogen 197 mg/dL Iron Level 156 MCG/DL Total Iron Binding Capacity 165 MCG/DL Percent Iron Saturation 94.4 % Transferrin 118 MG/DL Lactate Dehydrogenase 233 U/L Vitamin B12 Level 1141 PG/ML Culture Results Microbiology Date/Time Procedure Status Source Growth 02/06/17 14:25 Aerobic Blood Culture - Preliminary Resulted Blood Peripheral NO GROWTH IN 2 DAYS 02/06/17 14:25 Anaerobic Blood Culture - Preliminary Resulted Blood Peripheral NO GROWTH IN 2 DAYS 02/06/17 14:40 Aerobic Blood Culture - Preliminary Resulted Blood Peripheral NO GROWTH IN 2 DAYS 02/06/17 14:40 Anaerobic Blood Culture - Preliminary Resulted Blood Peripheral NO GROWTH IN 2 DAYS 02/06/17 20:00 Aerobic Blood Culture - Preliminary Resulted Blood Peripheral NO GROWTH IN 2 DAYS 02/06/17 20:00 Anaerobic Blood Culture - Preliminary Resulted Blood Peripheral NO GROWTH IN 2 DAYS 02/07/17 10:00 Aerobic Blood Culture - Preliminary Resulted Blood Peripheral NO GROWTH IN 1 DAY 02/07/17 10:00 Anaerobic Blood Culture - Preliminary Resulted Blood Peripheral NO GROWTH IN 1 DAY Administered Medications Medications (Trade) Dose Ordered Sig/Bliare Route PRN Reason Start Time Stop Time Status Last Admin Dose Admin Piperacillin Sod/ Tazobactam Sod (Zosyn 3.375 Gm Premix) 50 ml @ 100 mls/hr Q6H IV 02/03/17 22:00 02/08/17 09:47 Sodium Chloride (NS Flush) 2 ml UNSCH PRN IV FLUSH FLUSH AFTER USING IV ACCESS 02/03/17 17:00 02/08/17 04:06 Sodium Chloride (NS Flush) 2 ml BID IV FLUSH 02/03/17 21:00 02/08/17 08:38 Morphine Sulfate (Morphine Inj) 2 mg Q2H PRN IV PUSH PAIN SCALE 6 TO 10 02/03/17 17:00 02/05/17 04:28 Artificial Tears (Tears Naturale Opth Soln) 1 drop TID EACH EYE 02/03/17 18:00 02/08/17 12:29 Senna/Docusate Sodium (Minna-Colace) 1 tab BID PO 02/03/17 21:00 02/08/17 08:38 Oxycodone HCl (Roxicodone) 5 mg Q4H PRN PO PAIN SCALE 1 TO 5 02/03/17 17:00 02/04/17 21:27 Pantoprazole Sodium (Protonix) 40 mg DAILY PO 02/07/17 09:00 02/08/17 08:38 Objective Remarks GENERAL: Elderly male supine in bed in nad. SKIN: Warm and dry. HEAD: Normocephalic. EYES: No injection or drainage. NECK: Supple, trachea midline. CARDIOVASCULAR: +S1/S2 RESPIRATORY: Breath sounds equal bilaterally. No accessory muscle use. GASTROINTESTINAL: Abdomen soft, non-tender, nondistended. EXTREMITIES: No cyanosis NEUROLOGICAL: awake and alert. 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 Hematology has been consulted to evaluate thrombocytopenia. 1. Acute on chronic thrombocytopenia likely due to acute illness/DIC/ consumption. - no bleeding --platelets improving--29K today. 2. Hyperbilirubinemia with both direct and indirect bilirubin elevation. This is secondary to liver disease. His haptoglobin is also low likely due to liver disease. may have some degree of hemolysis 3. Anemia. - iron saturation 94%, low TIBC, likely anemia of chronic disease --LDH WNL, haptoglobin low --B12 WNL --hgb falling slowly, will also obtain stool Hemoccult 4. Resolving sepsis --latest blood cultures with no growth -- hypotension resolved --on Zosyn per primary team and ID 5. Coagulopathy due to sepsis and liver disease - transfuse cryo to keep fibrinogen > 150 --fibrinogen 197 today Attending Statement The exam, history, and the medical decision-making described in the above note were completed with the assistance of the mid-level provider. I reviewed and agree with the findings presented. I attest that I had a [id number] encounter with the patient on the same day, and personally performed and documented my assessment and findings in the medical record. Platelet count better daily coags daily fibrinogen Bia Tim rn Feb 08, 2017 14:38 Max Espinoza MD Feb 09, 2017 00:06
[2017-02-08 15:18] LABS: BASOPHIL % 1.1 % (0.0-2.0); EOSINOPHIL # 0.1 TH/MM3 (0-0.4); EOSINOPHIL % 3.3 % (0.0-4.0); HEMATOCRIT 29.2 % (39.0-51.0); LYMPH % 26.8 % (9.0-44.0); MEAN CELL VOLUME 107.8 FL (80.0-100.0); MEAN CORPUSCULAR HEMOGLOBIN 36.7 PG (27.0-34.0); MONO % 15.2 % (0.0-8.0); NEUT % 53.6 % (16.0-70.0); PLATELET COUNT 29 TH/MM3 (150-450); RED CELL DISTRIBUTION WIDTH 17.7 % (11.6-17.2); WHITE BLOOD COUNT 3.7 TH/MM3 (4.0-11.0)
[2017-02-08 15:26] LABS: HEMO FLAGS AUTO DIFF
[2017-02-08 16:01] LABS: INDIRECT BILIRUBIN 1.3 MG/DL (0.0-0.8); TOTAL BILIRUBIN ADULT 2.4 MG/DL (0.2-1.0)
[2017-02-08 16:32] LABS: ACANTHOCYTES OCC (NORMAL); PLATELET ESTIMATE SMEAR LOW (NORMAL); PLATELET MORPHOLOGY NORMAL (NORMAL); STOMATOCYTES 1+ (NORMAL)
[2017-02-08 16:33] LABS: SCAN/DIFF AUTO DIFF CONFIRMED
--- NOTE | 2017-02-08 16:46 | HHI.PR ---
Addendum to Inpatient Note Additional Information BC with St epi 2/2 2 D echo wo vegetations - will consult asbestos microscopist for JUANITA dc zosyn start vancomycin Nadine Wadsworth MD Feb 08, 2017 16:46
[2017-02-08] MEDS ORDERED: Vancomycin Consult Pharmacy 1 EA OTHER SCH (17:00)
[2017-02-08] MEDS: VANCOMYCIN 1,500 MG/NS 500 ML IV SCH ×2 (18:31)
[2017-02-09] VITALS (11 sets, daily range): BP systolic 116–137; BP diastolic 60–79; PULSE 71–95; RESP 16–20; TEMP 97–98.3; O2SAT 96–100
[2017-02-09] MEDS: VANCOMYCIN 1,500 MG/NS 500 ML IV SCH ×4 (05:56→17:37)
[2017-02-09 06:40] LABS: INTERNATIONAL NORMALIZED RATIO 1.3 RATIO; PROTHROMBIN TIME - PATIENT 15.1 SEC (9.8-11.6)
[2017-02-09 06:57] LABS: BICARBONATE 25.6 MEQ/L (21.0-32.0); POTASSIUM 3.6 MEQ/L (3.5-5.1)
[2017-02-09] MEDS: INSULIN NovoLIN REGULAR SUPPLEMENTAL SCALE SQ SCH ×2 (07:00→11:00)
[2017-02-09 07:15] LABS: AUTOMATED NEUTROPHIL # 1.6 TH/MM3 (1.8-7.7); BASOPHIL # 0.1 TH/MM3 (0-0.2); BASOPHIL % 3.1 % (0.0-2.0); EOSINOPHIL # 0.2 TH/MM3 (0-0.4); HEMATOCRIT 28.1 % (39.0-51.0); LYMPH % 28.7 % (9.0-44.0); LYMPHOCYTE # 0.9 TH/MM3 (1.0-4.8); MEAN CELL VOLUME 106.4 FL (80.0-100.0); MEAN CORPUSCULAR HEMOGLOBIN 37.2 PG (27.0-34.0); MONO % 10.6 % (0.0-8.0); NEUT % 52.6 % (16.0-70.0); PLATELET COUNT 29 TH/MM3 (150-450); RED BLOOD COUNT 2.64 MIL/MM3 (4.50-5.90); RED CELL DISTRIBUTION WIDTH 17.7 % (11.6-17.2); WHITE BLOOD COUNT 3.1 TH/MM3 (4.0-11.0)
[2017-02-09 08:05] LABS: HEMO FLAGS AUTO DIFF
[2017-02-09] MEDS ORDERED: GADODIAMIDE PF 287 MG/ML 20 ML VIAL (for RAD MRI) IV ONE (08:56)
[2017-02-09] MEDS: DOCUSATE SODIUM 50 MG/SENNA 8.6 MG TAB PO SCH ×2 (09:47→20:22)
[2017-02-09] MEDS: PANTOPRAZOLE SOD 40 MG DELAYED RELEASE TAB PO SCH (09:49)
[2017-02-09] MEDS: ARTIFICIAL TEARS OPTH SOLN 15 ML BTL EACH EYE SCH ×3 (09:50→17:13)
[2017-02-09] MEDS: SODIUM CHLORIDE 0.9% FLUSH 10 ML FLUSH IV FLUSH SCH ×2 (09:50→20:22)
[2017-02-09 10:18] LABS: PLATELET ESTIMATE SMEAR LOW (NORMAL); PLATELET MORPHOLOGY NORMAL (NORMAL); SCAN/DIFF AUTO DIFF CONFIRMED
--- NOTE | 2017-02-09 10:28 | RADRPT ---
EXAM DATE/TIME: 02/09/2017 08:27 [place] COMPARISON: August 2016, use for comparison. INDICATIONS : Back pain. CONTRAST: 20 cc Omniscan (gadodiamide) IV MEDICAL HISTORY : Cirrhosis. Hypertension. CAD. Endocarditis. A-fib. SURGICAL HISTORY : CABG Coronary artery stent. Aortic valve replacement. ENCOUNTER: Subsequent ACUITY: 4-6 days PAIN SCORE: 5/10 LOCATION: Mid-back. TECHNIQUE: Multiplanar multisequence MRI of the thoracic spine was performed. FINDINGS: MRI of the thoracic spine demonstrates marked discogenic edema around the T8-9 level. It is entirely new since August. On the T2 image and IR image there is some very mild increased signal within th e disc space itself. There is marked enhancement around the 8-9 level. The discogenic edema is enti rely new since August 2016. Pre and post contrast images confirm marked enhancement around the 8-9 level. No additional areas of enhancement are identified. I do not see any evidence for metastatic disease. There is chronic wed ging of L1 unchanged since August. T2 images demonstrate the cord is normal in shape. There is moderate sized bilateral pleural effusions. I do not see a significant epidural enhancement . The paravertebral soft tissues around 8-9 are relatively unremarkable. CONCLUSION: Isolated discogenic edema around the 8-9 level of the thoracic spine. This is new since August 7. Certainly diskitis is within the differential but I do not see any definite fluid within the disc space or obvious paravertebral thickening to confirm that. There is a broad based bulge at T10-11 which is stable since August. Butch Valadez MD on February 09, 2017 at 10:04 Board Certified Radiologist. This report was verified electronically.
--- NOTE | 2017-02-09 11:04 | MB ---
cc: SERA AUGUSTIN DATE OF CONSULTATION 02/09/2017 REASON FOR CONSULTATION Evaluate for possible JUANITA. HISTORY OF PRESENT ILLNESS 66-year-old male with a past medical history significant for severe symptomatic aortic stenosis status TAVR a 29 mm Hernández valve at [facility], CAD, alcohol abuse, liver cirrhosis. He has anemia and thrombocytopenia now presented to the hospital with hypotension. He was subsequently diagnosed with sepsis with positive blood cultures for Staph epidermis. I have been consulted to cardiology for possible transthoracic echocardiogram. The patient got a transesophageal echocardiogram. The patient has no complaints. REVIEW OF SYSTEMS The review of systems is negative except for what is mentioned in the HPI. PAST MEDICAL HISTORY 1. CAD 2. Thrombocytopenia 3. Liver disease, liver cirrhosis 4. Alcohol abuse 5. Hypertension 6. Chronic coagulopathy 7. Coronary artery disease status post bypass surgery PAST SURGICAL HISTORY 1. TAVR 2. CABG FAMILY HISTORY Noncontributory SOCIAL HISTORY History of a half pack of cigarettes per day for more than 40-years. History of alcohol abuse. No IV drug use. CARDIAC HOME MEDICATIONS 1. Norvasc 5 mg p.o. daily 2. Lasix 40 mg p.o. daily 3. [place] 10/325 q4 p.r.n. for pain 4. Metoprolol 25 mg p.o. b.i.d. PHYSICAL EXAMINATION VITAL SIGNS: Temperature 97, respiratory rate 20, heart rate 78, blood pressure 137/79, O2 sat 99% on room air. GENERAL: Awake, alert and oriented x3. NECK: No JVD. No carotid bruits. HEART: Regular rate and rhythm. No murmurs, rubs or gallops. LUNGS: Clear to auscultation bilaterally. ABDOMEN: Soft and nondistended. EXTREMITIES: No cyanosis or edema. Pulses throughout. DATA WBC 3.1, hemoglobin 9.8, hematocrit 28, platelet count 29, INR 1.3. Chemistries sodium 140, potassium 3.6, BUN 10, creatinine 0.77. Urinalysis positive for bacteremia. Microbiology, two blood cultures positive for Staphylococcus epidermis. There is Gardnerella vaginitis in the urine. Pelvic CT, there is a stenosis of the left renal artery of 60%. There are small bilateral pleural effusions, cirrhosis, and splenic infarcts. Echocardiogram shows no evidence of vegetations with normal LV function. ASSESSMENT/PLAN 66-year-old male with above past medical history who presented with hypotension been diagnosed with sepsis. He remains afebrile and hemodynamically stable. The patient was consented to cardiology to do a transesophageal echocardiogram to rule out infective endocarditis. Transthoracic echo did not showed vegetations. Although usually this situations , a JUANITA would be recommended. In this particular patient given his cirrhosis, severe thrombocytopenia and anemia, a procedure like a JUANITA will be a high-risk procedure and a relative contraindication, thus a JUANITA is not recommended at this time. This has been discussed with Dr. Wadsworth as well ad Dr. Clayton who agrees with holding on the JUANITA for now. Thank you for the opportunity to take part in the care of this patient. Reconsult as necessary. MD CALEB Norton/SVETA /10:30 AM /10:49 AM DION
--- NOTE | 2017-02-09 14:38 | HHI.PR ---
Addendum to Inpatient Note Additional Information St epi wityh different sensitivitied on [address] Kebede, JUANITA seems risky in this pt -will hold off on JUANITA shaynell hillary crespo bl clx Nadine Wadsworth MD Feb 09, 2017 14:38
[2017-02-09 15:51] LABS: VWF CLEAVING PROT ACT 91 (68-163); VWF PROTEASE INH ND BEU (<0.4)
--- NOTE | 2017-02-09 16:17 | HHI.PR ---
Subjective Remarks patient c/o back pain denies fevers/chills vital signs stable patient afebrile Objective Vitals Vital Signs Date Time Temp Pulse Resp B/P Pulse Ox O2 Delivery O2 Flow Rate FiO2 02/09/17 12:05 95 02/09/17 12:00 97.8 78 18 131/72 100 02/09/17 08:00 97.0 78 20 137/79 99 02/09/17 08:00 81 02/09/17 04:19 73 02/09/17 04:00 98.3 78 16 126/71 99 02/09/17 00:30 97.8 71 16 126/60 96 02/09/17 00:20 93 02/08/17 20:15 97.6 79 18 120/59 98 02/08/17 20:13 77 I/O 02/08/17 02/08/17 02/08/17 02/09/17 02/09/17 02/09/17 06:59 14:59 22:59 06:59 14:59 22:59 Intake Total 1060 ml 1560 ml 120 ml Output Total 850 ml 275 ml 850 ml 200 ml Balance 210 ml 1285 ml -850 ml -80 ml Intake Oral 1560 ml 120 ml IV Total 1060 ml Output Urine Total 850 ml 275 ml 850 ml 200 ml # Voids 2 # Bowel Movements 2 Result Diagram: 02/09/17 0609 02/09/17 0609 Imaging Last Impressions Thoracic Spine MRI 02/09/17 0000 Signed Impressions: Service Date/Time: Thursday, February 09, 2017 08:27 - CONCLUSION: Isolated discogenic edema around the 8-9 level of the thoracic spine. This is new since August 2016. Certainly diskitis is within the differential but I do not see any definite fluid within the disc space or obvious paravertebral thickening to confirm that. There is a broad based bulge at T10-11 which is stable since August. Butch Valadez MD Abdomen/Pelvis CT 02/05/17 0000 Signed Impressions: Service Date/Time: Sunday, February 05, 2017 18:35 - CONCLUSION: 1. Approximate 60%% stenosis involving the left renal artery secondary to atherosclerotic plaque. The right renal artery is patent. 2. Patent mesenteric vessels. 3. Small bilateral pleural effusions which are larger from the prior study. 4. Cirrhosis. 5. Stable low-density areas involving the spleen likely relating to infarcts. The splenic artery is patent. 6. Small volume ascites. 7. Anasarca. Todd Cortes Jr., MD Chest X-Ray 02/04/17 0000 Signed Impressions: Service Date/Time: Saturday, February 04, 2017 01:47 - CONCLUSION: Right jugular line as above. Maninder Berg MD Head CT 02/03/17 0000 Signed Impressions: Service Date/Time: January 15:02 - CONCLUSION: Slight atrophic and small vessel ischemic changes without any evidence for acute hemorrhage or mass effect. Antoine Ramires MD Ankle X-Ray 02/03/17 Signed Impressions: Service Date/Time: January 15:18 - CONCLUSION: No definite fracture is seen for technique. Antoine Ramires MD Objective Remarks obese, nad, heard of hearing lungs clear to auscultation BL S1S2 RRR no MRG +2 edema in BL lower extremities BL Medications and IVs Current Medications Medications (Trade) Dose Ordered Sig/Blaire Route Start Time Stop Time Status Last Admin (Brethine Inj) 1 mg UNSCH PRN SQ 02/03/17 16:00 (NS Flush) 2 ml UNSCH PRN IV FLUSH 02/03/17 17:00 02/08/17 04:06 (NS Flush) 2 ml BID IV FLUSH 02/03/17 21:00 02/09/17 09:50 (Morphine Inj) 2 mg Q2H PRN IV PUSH 02/03/17 17:00 02/05/17 04:28 (Tears Naturale Opth Soln) 1 drop TID EACH EYE 02/03/17 18:00 02/09/17 13:37 (Zofran Inj) 4 mg Q6H PRN IV 02/03/17 17:00 (Minna-Colace) 1 tab BID PO 02/03/17 21:00 02/08/17 21:39 (Milk Of Magnesia Liq) 30 ml Q12H PRN PO 02/03/17 17:00 (Senokot) 17.2 mg Q12H PRN PO 02/03/17 17:00 (Dulcolax Supp) 10 mg DAILY PRN RECTAL 02/03/17 17:00 (Lactulose Liq) 30 ml DAILY PRN PO 02/03/17 17:00 (Roxicodone) 5 mg Q4H PRN PO 02/03/17 17:00 02/04/17 21:27 Pantoprazole Sodium 40 mg 40 mg DAILY PO 02/07/17 09:00 02/09/17 09:49 Pharmacy Profile Note 0 ml @ 0 mls/hr UNSCH OTHER 02/08/17 17:00 (Vancomycin Inj/ NS 500 ml Inj) 515 ml @ 257.5 mls/ hr Q12H IV 02/08/17 18:00 02/09/17 05:56 Miscellaneous Information SPECIFIC LAB TO BE SEVERIANO... ONCE ONCE .XX 02/10/17 05:45 02/10/17 05:46 Urinary Catheter: No Vascular Central Line Catheter: Yes Assessment to: Continue Date of Insertion: Feb 04, 2017 Line: Central Venous Catheter Side: Right Location: Internal, Jugular A/P Problem List: (1) Septic shock ICD Code: A41.9 Status: Acute Plan: This is a 66-year-old male with past medical history for CAD status post CABG, history of alcohol abuse, liver cirrhosis, liver disease, history of strep viridans endocarditis, who presents to the emergency department with hypotension. Patient presented severe septic shock, secondary to infected histology which initially was treated by the intensivists. The patient treated with IV antibiotics - IV Zosyn. ID consulted Blood cultures positive for staph epidermidis 2 bottles Cardiology consulted for JUANITA as per infectious recommendations. The case was discussed with Dr. Kebede from cardiology. In this patient with such a degree of thrombus cytopenia and coagulopathy, JUANITA is risky at this moment. Will hold off on JUANITA at this moment. Continue to follow up blood cultures. (2) Fever ICD Code: R50.9 Status: Resolved Plan: Likely secondary to bacteremia due to staph epidermidis. TTE performed which failed to show any vegetations, although report states that valves were not well seen. (3) UTI (urinary tract infection) ICD Code: N39.0 Status: Acute Plan: Suspect UTI. Patient currently on IV antibiotics as per infectious disease. Patient initially on IV Zosyn empirically, discontinued and now on IV vancomycin. (4) Diskitis ICD Code: M46.40 Status: Acute Plan: Patient complains of back pain. Patient has history of discitis at T8- T9. Status post treatment with 8 weeks of antibiotic therapy with IV Rocephin. MRI of the thoracic spine shows possible discitis. We'll follow-up infectious disease recommendations. (5) Thrombocytopenia ICD Code: D69.6 Status: Chronic Plan: Hematology consulted on following. Appreciate recommendations. Acute on chronic thrombus cytopenia likely due to acute illness/DAC/consumption No active bleeding. Platelets currently improving. Tonight K today. Continue to monitor platelets daily. (6) Hyperbilirubinemia ICD Code: E80.6 Status: Acute Plan: Both direct and indirect bilirubin elevation. Likely secondary to liver disease. Haptoglobin likely low due to liver disease. Possibly some degree of hemolysis. (7) Anemia ICD Code: D64.9 Status: Acute Plan: Iron studies consistent with anemia of chronic disease. B12 within normal range Hemoglobin was falling slowly. Stool Hemoccult negative (8) Coagulopathy ICD Code: D68.9 Status: Acute Plan: Colopathy sympathetic to sepsis and liver disease. Hematology following, appreciate recommendations. Cryoprecipitate been administered. Follow-up fibula no gin and keep above 150. (9) Hypertension ICD Code: I10 Status: Chronic Plan: Blood pressure seems to be stable. Home antihypertensives which include amlodipine and metoprolol are being held. Continue to hold for now. Assessment and Plan Continue to monitor in the medical floor. Problem Qualifiers (1) UTI (urinary tract infection): Qualified Code: N39.0 - Urinary tract infection with hematuria, site unspecified (2) Diskitis: Qualified Code: M46.44 - Discitis of thoracic region Wayne Blunt MD Feb 09, 2017 16:17 Qualified Code: I35.0 - Aortic valve stenosis, unspecified etiology (6) Right rib fracture: Qualified Code: S22.41XS - Closed fracture of multiple ribs of right side, sequela (7) Varices, esophageal: Qualified Code: I85.00 - Esophageal varices without bleeding, unspecified esophageal varices type (8) Diarrhea: Qualified Code: R19.7 - Diarrhea, unspecified type (9) Hard of hearing: Qualified Code: H90.0 - Conductive hearing loss, bilateral Wayne Blunt MD Feb 09, 2017 16:17
--- NOTE | 2017-02-09 23:18 | PD.ONC.PN ---
Subjective Subjective Remarks no bleeding no fevers denies any pain on IV vanc d/w rn Objective Data Date Time Temp Pulse Resp B/P Pulse Ox O2 Delivery O2 Flow Rate FiO2 02/09/17 20:00 98.3 77 17 116/68 100 02/09/17 16:04 80 02/09/17 16:00 97.6 75 18 122/66 100 02/09/17 12:05 95 02/09/17 12:00 97.8 78 18 131/72 100 02/09/17 08:00 97.0 78 20 137/79 99 02/09/17 08:00 81 02/09/17 04:19 73 02/09/17 04:00 98.3 78 16 126/71 99 02/09/17 00:30 97.8 71 16 126/60 96 02/09/17 00:20 93 02/09/17 02/09/17 02/09/17 07:00 15:00 23:00 Intake Total 120 ml 1200 ml Output Total 200 ml 1300 ml Balance -80 ml -100 ml Result Diagram: 02/09/17 0609 02/09/17 0609 Laboratory Results Laboratory Tests Test 02/09/17 06:09 White Blood Count 3.1 TH/MM3 Red Blood Count 2.64 MIL/MM3 Hemoglobin 9.8 GM/DL Hematocrit 28.1 % Mean Corpuscular Volume 106.4 FL Mean Corpuscular Hemoglobin 37.2 PG Mean Corpuscular Hemoglobin 35.0 % Concent Red Cell Distribution Width 17.7 % Platelet Count 29 TH/MM3 Mean Platelet Volume 9.7 FL Neutrophils (%) (Auto) 52.6 % Lymphocytes (%) (Auto) 28.7 % Monocytes (%) (Auto) 10.6 % Eosinophils (%) (Auto) 5.0 % Basophils (%) (Auto) 3.1 % Neutrophils # (Auto) 1.6 TH/MM3 Lymphocytes # (Auto) 0.9 TH/MM3 Monocytes # (Auto) 0.3 TH/MM3 Eosinophils # (Auto) 0.2 TH/MM3 Basophils # (Auto) 0.1 TH/MM3 CBC Comment AUTO DIFF Differential Comment AUTO DIFF CONFIRMED Platelet Estimate LOW Platelet Morphology Comment NORMAL Prothrombin Time 15.1 SEC Prothromb Time International 1.3 RATIO Ratio Sodium Level 140 MEQ/L Potassium Level 3.6 MEQ/L Chloride Level 108 MEQ/L Carbon Dioxide Level 25.6 MEQ/L Anion Gap 6 MEQ/L Blood Urea Nitrogen 10 MG/DL Creatinine 0.77 MG/DL Estimat Glomerular Filtration 102 ML/MIN Rate Random Glucose 88 MG/DL Calcium Level 8.5 MG/DL Culture Results Microbiology Date/Time Procedure Status Source Growth 02/07/17 10:00 Aerobic Blood Culture - Preliminary Resulted Blood Peripheral NO GROWTH IN 2 DAYS 02/07/17 10:00 Anaerobic Blood Culture - Preliminary Resulted Blood Peripheral NO GROWTH IN 2 DAYS 02/09/17 08:17 Stool Occult Blood (ANICETO) - Final Complete Stool Stool HEMOCCULT NEGATIVE 02/09/17 17:40 Stool Occult Blood (ANICETO) - Final Complete Stool Stool HEMOCCULT NEGATIVE Imaging Studies Last 24 hours Impressions Thoracic Spine MRI 02/09/17 0000 Signed Impressions: Service Date/Time: Tuesday, February 09, 2017 08:27 - CONCLUSION: Isolated discogenic edema around the 8-9 level of the thoracic spine. This is new since August 2016. Certainly diskitis is within the differential but I do not see any definite fluid within the disc space or obvious paravertebral thickening to confirm that. There is a broad based bulge at T10-11 which is stable since August. Butch Valadez MD Administered Medications Medications (Trade) Dose Ordered Sig/Blaire Route PRN Reason Start Time Stop Time Status Last Admin Dose Admin Sodium Chloride (NS Flush) 2 ml UNSCH PRN IV FLUSH FLUSH AFTER USING IV ACCESS 02/03/17 17:00 02/08/17 04:06 Sodium Chloride (NS Flush) 2 ml BID IV FLUSH 02/03/17 21:00 02/09/17 20:22 Morphine Sulfate (Morphine Inj) 2 mg Q2H PRN IV PUSH PAIN SCALE 6 TO 10 02/03/17 17:00 02/05/17 04:28 Artificial Tears (Tears Naturale Opth Soln) 1 drop TID EACH EYE 02/03/17 18:00 02/09/17 17:13 Senna/Docusate Sodium (Minna-Colace) 1 tab BID PO 02/03/17 21:00 02/08/17 21:39 Oxycodone HCl (Roxicodone) 5 mg Q4H PRN PO PAIN SCALE 1 TO 5 02/03/17 17:00 02/04/17 21:27 Pantoprazole Sodium 40 mg 40 mg DAILY PO 02/07/17 09:00 02/09/17 09:49 Vancomycin HCl/ Sodium Chloride (Vancomycin Inj/ NS 500 ml Inj) 515 ml @ 257.5 mls/ hr Q12H IV 02/08/17 18:00 02/09/17 17:37 Objective Remarks GENERAL: nad SKIN: Warm and dry. HEAD: Normocephalic. EYES: No scleral icterus. No injection or drainage. NECK: Supple, trachea midline. No JVD or lymphadenopathy. LYMPHATIC: No adenopathy. CARDIOVASCULAR: Regular rate and rhythm without murmurs. RESPIRATORY: Breath sounds equal bilaterally. No accessory muscle use. GASTROINTESTINAL: Abdomen soft, non-tender, nondistended. EXTREMITIES: No cyanosis, or edema. 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 Hematology has been consulted to evaluate thrombocytopenia. 1. Acute on chronic thrombocytopenia likely due to acute illness/DIC/ consumption. - no bleeding --platelets stable --29K today. 2. Hyperbilirubinemia with both direct and indirect bilirubin elevation. This is secondary to liver disease. His haptoglobin is also low likely due to liver disease. may have some degree of hemolysis 3. Anemia. - iron saturation 94%, low TIBC, likely anemia of chronic disease - obtain stool Hemoccult--PENDING 4. Resolving sepsis --latest blood cultures with no growth --ON IV VANC--ID seeing patient 5. Coagulopathy due to sepsis and liver disease - transfuse cryo to keep fibrinogen > 150 --fibrinogen stable --INR up --will vitamin K Max Espinoza MD Feb 09, 2017 23:18
[2017-02-09] MEDS ORDERED: PHYTONADIONE 5 MG TAB PO ONE (23:30)
[2017-02-10] VITALS (13 sets, daily range): BP systolic 110–130; BP diastolic 60–89; PULSE 72–95; RESP 16–18; TEMP 96.2–97.9; O2SAT 96–99
[2017-02-10] MEDS ORDERED: PHARMACY ORDERED LAB ONE (05:45)
[2017-02-10 05:59] LABS: BASOPHIL % 0.5 % (0.0-2.0); EOSINOPHIL # 0.1 TH/MM3 (0-0.4); EOSINOPHIL % 4.2 % (0.0-4.0); HEMATOCRIT 28.1 % (39.0-51.0); LYMPH % 24.9 % (9.0-44.0); LYMPHOCYTE # 0.9 TH/MM3 (1.0-4.8); MEAN CELL VOLUME 107.2 FL (80.0-100.0); MEAN CORPUSCULAR HEMOGLOBIN 36.5 PG (27.0-34.0); MONO % 12.1 % (0.0-8.0); NEUT % 58.3 % (16.0-70.0); PLATELET COUNT 35 TH/MM3 (150-450); RED BLOOD COUNT 2.62 MIL/MM3 (4.50-5.90); RED CELL DISTRIBUTION WIDTH 18.4 % (11.6-17.2); WHITE BLOOD COUNT 3.5 TH/MM3 (4.0-11.0)
[2017-02-10 06:02] LABS: APTT (PATIENT) 34.7 SEC (24.3-30.1); INTERNATIONAL NORMALIZED RATIO 1.4 RATIO; PROTHROMBIN TIME - PATIENT 16.2 SEC (9.8-11.6)
[2017-02-10 06:15] LABS: ANION GAP 8 MEQ/L (5-15); AST (GOT) 29 U/L (15-37); BICARBONATE 24.8 MEQ/L (21.0-32.0); BLOOD UREA NITROGEN 9 MG/DL (7-18); CHLORIDE 107 MEQ/L (98-107); GLOMERULAR FILTRATION RATE 92 ML/MIN (>89); MAGNESIUM 1.4 MG/DL (1.5-2.5); POTASSIUM 3.6 MEQ/L (3.5-5.1); SODIUM (NA) 140 MEQ/L (136-145)
[2017-02-10 06:17] LABS: HEMO FLAGS AUTO DIFF
[2017-02-10 06:18] LABS: ALKALINE PHOSPHATASE 69 U/L (45-117); ALT (GPT) 17 U/L (12-78); LDH SERUM 259 U/L (87-241); TOTAL BILIRUBIN ADULT 2.1 MG/DL (0.2-1.0)
[2017-02-10] MEDS: VANCOMYCIN 1,500 MG/NS 500 ML IV SCH ×4 (07:26→17:30)
[2017-02-10 08:45] LABS: PLATELET ESTIMATE SMEAR LOW (NORMAL); PLATELET MORPHOLOGY NORMAL (NORMAL); SCAN/DIFF AUTO DIFF CONFIRMED
[2017-02-10] MEDS: PANTOPRAZOLE SOD 40 MG DELAYED RELEASE TAB PO SCH (09:15)
[2017-02-10] MEDS: SODIUM CHLORIDE 0.9% FLUSH 10 ML FLUSH IV FLUSH SCH ×2 (09:16→21:34)
[2017-02-10] MEDS: ARTIFICIAL TEARS OPTH SOLN 15 ML BTL EACH EYE SCH ×3 (09:16→17:33)
[2017-02-10] MEDS: DOCUSATE SODIUM 50 MG/SENNA 8.6 MG TAB PO SCH ×2 (09:16→21:34)
[2017-02-10] MEDS: MAGNESIUM SULFATE 1 GM PREMIX 100 ML IV SCH ×2 (11:26→13:18)
--- NOTE | 2017-02-10 12:35 | PD.ONC.PN ---
Subjective Subjective Remarks resting no fevers/no bleeding asking when he can go home Objective Data Date Time Temp Pulse Resp B/P Pulse Ox O2 Delivery O2 Flow Rate FiO2 02/10/17 08:47 96.8 79 16 128/79 98 02/10/17 04:26 82 02/10/17 04:00 96.2 78 17 110/64 96 02/10/17 00:35 82 02/10/17 00:00 97.0 80 17 111/60 99 02/09/17 20:15 77 02/09/17 20:00 98.3 77 17 116/68 100 02/09/17 16:04 80 02/09/17 16:00 97.6 75 18 122/66 100 02/10/17 02/10/17 02/10/17 07:00 15:00 23:00 Intake Total 480 ml Output Total 800 ml Balance -320 ml Result Diagram: 02/10/17 0540 02/10/17 0540 Laboratory Results Laboratory Tests Test 02/10/17 05:40 White Blood Count 3.5 TH/MM3 Red Blood Count 2.62 MIL/MM3 Hemoglobin 9.6 GM/DL Hematocrit 28.1 % Mean Corpuscular Volume 107.2 FL Mean Corpuscular Hemoglobin 36.5 PG Mean Corpuscular Hemoglobin 34.0 % Concent Red Cell Distribution Width 18.4 % Platelet Count 35 TH/MM3 Mean Platelet Volume 9.4 FL Neutrophils (%) (Auto) 58.3 % Lymphocytes (%) (Auto) 24.9 % Monocytes (%) (Auto) 12.1 % Eosinophils (%) (Auto) 4.2 % Basophils (%) (Auto) 0.5 % Neutrophils # (Auto) 2.0 TH/MM3 Lymphocytes # (Auto) 0.9 TH/MM3 Monocytes # (Auto) 0.4 TH/MM3 Eosinophils # (Auto) 0.1 TH/MM3 Basophils # (Auto) 0.0 TH/MM3 CBC Comment AUTO DIFF Differential Comment AUTO DIFF CONFIRMED Platelet Estimate LOW Platelet Morphology Comment NORMAL Haptoglobin LESS THAN 10 MG/DL Prothrombin Time 16.2 SEC Prothromb Time International 1.4 RATIO Ratio Activated Partial 34.7 SEC Thromboplast Time Fibrinogen 126 mg/dL Sodium Level 140 MEQ/L Potassium Level 3.6 MEQ/L Chloride Level 107 MEQ/L Carbon Dioxide Level 24.8 MEQ/L Anion Gap 8 MEQ/L Blood Urea Nitrogen 9 MG/DL Creatinine 0.84 MG/DL Estimat Glomerular Filtration 92 ML/MIN Rate Random Glucose 95 MG/DL Calcium Level 8.1 MG/DL Phosphorus Level 2.3 MG/DL Magnesium Level 1.4 MG/DL Total Bilirubin 2.1 MG/DL Aspartate Amino Transf 29 U/L (AST/SGOT) Alanine Aminotransferase 17 U/L (ALT/SGPT) Alkaline Phosphatase 69 U/L Lactate Dehydrogenase 259 U/L Total Protein 5.3 GM/DL Albumin 1.8 GM/DL Vancomycin Level Trough 18.9 MCG/ML Culture Results Microbiology Date/Time Procedure Status Source Growth 02/09/17 08:17 Stool Occult Blood (ANICETO) - Final Complete Stool Stool HEMOCCULT NEGATIVE 02/09/17 17:40 Stool Occult Blood (ANICETO) - Final Complete Stool Stool HEMOCCULT NEGATIVE Administered Medications Medications (Trade) Dose Ordered Sig/Blaire Route PRN Reason Start Time Stop Time Status Last Admin Dose Admin Sodium Chloride (NS Flush) 2 ml UNSCH PRN IV FLUSH FLUSH AFTER USING IV ACCESS 02/03/17 17:00 02/08/17 04:06 Sodium Chloride (NS Flush) 2 ml BID IV FLUSH 02/03/17 21:00 02/10/17 09:16 Morphine Sulfate (Morphine Inj) 2 mg Q2H PRN IV PUSH PAIN SCALE 6 TO 10 02/03/17 17:00 02/05/17 04:28 Artificial Tears (Tears Naturale Opth Soln) 1 drop TID EACH EYE 02/03/17 18:00 02/10/17 09:16 Senna/Docusate Sodium (Minna-Colace) 1 tab BID PO 02/03/17 21:00 02/08/17 21:39 Oxycodone HCl (Roxicodone) 5 mg Q4H PRN PO PAIN SCALE 1 TO 5 02/03/17 17:00 02/04/17 21:27 Pantoprazole Sodium 40 mg 40 mg DAILY PO 02/07/17 09:00 02/10/17 09:15 Vancomycin HCl 1500 mg/Sodium Chloride 515 ml @ 257.5 mls/ hr Q12H IV 02/08/17 18:00 02/10/17 07:26 Magnesium Sulfate/ Dextrose (Magnesium Sulfate 1 Gm Premix) 100 ml @ 100 mls/hr Q1H IV 02/10/17 11:00 02/10/17 12:59 02/10/17 11:26 Objective Remarks GENERAL: nad SKIN: Warm and dry. NECK: Supple, trachea midline. No JVD or lymphadenopathy. LYMPHATIC: No adenopathy. CARDIOVASCULAR: Regular rate and rhythm without murmurs. RESPIRATORY: Breath sounds equal bilaterally. No accessory muscle use. GASTROINTESTINAL: Abdomen soft, non-tender, nondistended. EXTREMITIES: No cyanosis, or edema. 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 Hematology has been consulted to evaluate thrombocytopenia. 1. Acute on chronic thrombocytopenia likely due to acute illness/DIC/ consumption. - no bleeding --platelets count up to 35 2. Hyperbilirubinemia with both direct and indirect bilirubin elevation. This is secondary to liver disease. His haptoglobin is also low likely due to liver disease. low grade hemolysis 3. Anemia. - iron saturation 94%, low TIBC, likely anemia of chronic disease - stool Hemoccult NEGATIVE 4. Resolving sepsis - ID following 5. Coagulopathy due to sepsis and liver disease - transfuse cryo to keep fibrinogen > 150 -- low fibrinogen today -- give cryo Max Espinoza MD Feb 10, 2017 12:35
--- NOTE | 2017-02-10 12:43 | HHI.PR ---
Subjective Remarks states he feels dizzy when he gets up denies chest pain/sob Objective Vitals Vital Signs Date Time Temp Pulse Resp B/P Pulse Ox O2 Delivery O2 Flow Rate FiO2 02/10/17 08:47 96.8 79 16 128/79 98 02/10/17 04:26 82 02/10/17 04:00 96.2 78 17 110/64 96 02/10/17 00:35 82 02/10/17 00:00 97.0 80 17 111/60 99 02/09/17 20:15 77 02/09/17 20:00 98.3 77 17 116/68 100 02/09/17 16:04 80 02/09/17 16:00 97.6 75 18 122/66 100 I/O 02/09/17 02/09/17 02/09/17 02/10/17 02/10/17 02/10/17 07:00 15:00 23:00 07:00 15:00 23:00 Intake Total 120 ml 1200 ml 480 ml Output Total 200 ml 1300 ml 800 ml Balance -80 ml -100 ml -320 ml Intake Oral 120 ml 1200 ml 480 ml Output Urine Total 200 ml 1300 ml 800 ml # Bowel Movements 1 Result Diagram: 02/10/17 0540 02/10/17 0540 Imaging Last Impressions Thoracic Spine MRI 02/09/17 0000 Signed Impressions: Service Date/Time: Thursday, February 09, 2017 08:27 - CONCLUSION: Isolated discogenic edema around the 8-9 level of the thoracic spine. This is new since August 2016. Certainly diskitis is within the differential but I do not see any definite fluid within the disc space or obvious paravertebral thickening to confirm that. There is a broad based bulge at T10-11 which is stable since August. Butch Valadez MD Abdomen/Pelvis CT 02/05/17 0000 Signed Impressions: Service Date/Time: Sunday, February 05, 2017 18:35 - CONCLUSION: 1. Approximate 60%% stenosis involving the left renal artery secondary to atherosclerotic plaque. The right renal artery is patent. 2. Patent mesenteric vessels. 3. Small bilateral pleural effusions which are larger from the prior study. 4. Cirrhosis. 5. Stable low-density areas involving the spleen likely relating to infarcts. The splenic artery is patent. 6. Small volume ascites. 7. Anasarca. Todd Cortes Jr., MD Chest X-Ray 02/04/17 0000 Signed Impressions: Service Date/Time: Saturday, February 04, 2017 01:47 - CONCLUSION: Right jugular line as above. Maninder Berg MD Head CT 02/03/17 0000 Signed Impressions: Service Date/Time: January 15:02 - CONCLUSION: Slight atrophic and small vessel ischemic changes without any evidence for acute hemorrhage or mass effect. Antoine Ramires MD Ankle X-Ray 02/03/17 0000 Signed Impressions: Service Date/Time: January 15:18 - CONCLUSION: No definite fracture is seen for technique. Antoine Ramires MD Objective Remarks obese, nad, heard of hearing lungs clear to auscultation BL S1S2 RRR no MRG +2 edema in BL lower extremities BL Procedures none Medications and IVs Current Medications Medications (Trade) Dose Ordered Sig/Blaire Route Start Time Stop Time Status Last Admin (Brethine Inj) 1 mg UNSCH PRN SQ 02/03/17 16:00 (NS Flush) 2 ml UNSCH PRN IV FLUSH 02/03/17 17:00 02/08/17 04:06 (NS Flush) 2 ml BID IV FLUSH 02/03/17 21:00 02/10/17 09:16 (Morphine Inj) 2 mg Q2H PRN IV PUSH 02/03/17 17:00 02/05/17 04:28 (Tears Naturale Opth Soln) 1 drop TID EACH EYE 02/03/17 18:00 02/10/17 09:16 (Zofran Inj) 4 mg Q6H PRN IV 02/03/17 17:00 (Minna-Colace) 1 tab BID PO 02/03/17 21:00 02/08/17 21:39 (Milk Of Magnesia Liq) 30 ml Q12H PRN PO 02/03/17 17:00 (Senokot) 17.2 mg Q12H PRN PO 02/03/17 17:00 (Dulcolax Supp) 10 mg DAILY PRN RECTAL 02/03/17 17:00 (Lactulose Liq) 30 ml DAILY PRN PO 02/03/17 17:00 (Roxicodone) 5 mg Q4H PRN PO 02/03/17 17:00 02/04/17 21:27 Pantoprazole Sodium 40 mg 40 mg DAILY PO 02/07/17 09:00 02/10/17 09:15 Pharmacy Profile Note 0 ml @ 0 mls/hr UNSCH OTHER 02/08/17 17:00 (Vancomycin Inj/ NS 500 ml Inj) 515 ml @ 257.5 mls/ hr Q12H IV 02/08/17 18:00 02/10/17 07:26 Miscellaneous Information SPECIFIC LAB TO BE SEVERIANO... ONCE ONCE .XX 02/11/17 05:45 02/11/17 05:46 Potassium Phos/ Sodium Phos 250 mg 250 mg Q8HR PO 02/10/17 14:00 (Magnesium Sulfate 1 Gm Premix) 100 ml @ 100 mls/hr Q1H IV 02/10/17 11:00 02/10/17 12:59 02/10/17 11:26 Date of Insertion: Feb 04, 2017 Line: Central Venous Catheter Side: Right Location: Internal, Jugular A/P Problem List: (1) Septic shock ICD Code: A41.9 Status: Acute Plan: This is a 66-year-old male with past medical history for CAD status post CABG, history of alcohol abuse, liver cirrhosis, liver disease, history of strep viridans endocarditis, who presents to the emergency department with hypotension. Patient presented severe septic shock, secondary to infected histology which initially was treated by the intensivists. The patient treated with IV antibiotics - IV Zosyn. ID consulted Blood cultures positive for staph epidermidis 2 bottles Cardiology consulted for JUANITA as per infectious recommendations. The case was discussed with Dr. Kebede from cardiology. In this patient with such a degree of thrombus cytopenia and coagulopathy, JUANITA is risky at this moment. Will hold off on JUANITA at this moment. Continue to follow up blood cultures. (2) Fever ICD Code: R50.9 Status: Resolved Plan: Likely secondary to bacteremia due to staph epidermidis. TTE performed which failed to show any vegetations, although report states that valves were not well seen. (3) UTI (urinary tract infection) ICD Code: N39.0 Status: Acute Plan: Suspect UTI. Patient currently on IV antibiotics as per infectious disease. Patient initially on IV Zosyn empirically, discontinued and now on IV vancomycin. (4) Diskitis ICD Code: M46.40 Status: Acute Plan: Patient complains of back pain. Patient has history of discitis at T8- T9. Status post treatment with 8 weeks of antibiotic therapy with IV Rocephin. MRI of the thoracic spine shows possible discitis. We'll follow-up infectious disease recommendations. (5) Thrombocytopenia ICD Code: D69.6 Status: Chronic Plan: Hematology consulted on following. Appreciate recommendations. Acute on chronic thrombus cytopenia likely due to acute illness/DAC/consumption No active bleeding. Platelets currently improving. 35 K. Continue to monitor platelets daily. (6) Hyperbilirubinemia ICD Code: E80.6 Status: Acute Plan: Both direct and indirect bilirubin elevation. Likely secondary to liver disease. Haptoglobin likely low due to liver disease. Possibly some degree of hemolysis. (7) Anemia ICD Code: D64.9 Status: Acute Plan: Iron studies consistent with anemia of chronic disease. B12 within normal range Hemoglobin was falling slowly. Stool Hemoccult negative (8) Coagulopathy ICD Code: D68.9 Status: Acute Plan: Colopathy sympathetic to sepsis and liver disease. Hematology following, appreciate recommendations. 02/10 Keep Fibrinogen above 150 - Will order 2 units of cryoprecipitate to be given. (9) Hypertension ICD Code: I10 Status: Chronic Plan: Blood pressure seems to be stable. Home antihypertensives which include amlodipine and metoprolol are being held. Continue to hold for now. Assessment and Plan Continue to monitor in the medical floor. Problem Qualifiers (1) UTI (urinary tract infection): Qualified Code: N39.0 - Urinary tract infection with hematuria, site unspecified (2) Diskitis: Qualified Code: M46.44 - Discitis of thoracic region (3) Anemia: Qualified Code: D64.9 - Anemia, unspecified type Wayne Blunt MD Feb 10, 2017 12:43
[2017-02-10] MEDS ORDERED: SODIUM CHLOR 0.9% 250 ML INJ 250 ML IV ONE (12:45)
[2017-02-10] MEDS: POTASSIUM PHOSPHATE/SODIUM PHOSPHATE 250 MG TAB PO SCH ×2 (13:24→21:34)
[2017-02-10] MEDS: ACETAMINOPHEN 325 MG TAB PO PRN ×2 (14:44→22:03)
[2017-02-10] MEDS: diphenhydrAMINE HCL 25 MG CAP PO PRN ×2 (14:44→22:03)
--- NOTE | 2017-02-10 19:32 | HHI.IDPN ---
Subjective Subjective Remarks frustrated 2/2 lack of meeting with his PCP R IJ bothers him no fever blood clx stay negative afebrile Antibiotics vancomycin Allergies: Coded Allergies: Lisinopril (Verified Allergy, Intermediate, 02/03/17) Objective . Vital Signs Date Time Temp Pulse Resp B/P Pulse Ox O2 Delivery O2 Flow Rate FiO2 02/10/17 16:12 95 02/10/17 16:05 97.1 72 16 128/79 99 02/10/17 15:44 97.2 75 16 124/89 97 02/10/17 12:00 97.3 72 16 117/72 98 02/10/17 08:47 96.8 79 16 128/79 98 02/10/17 08:17 82 02/10/17 04:26 82 02/10/17 04:00 96.2 78 17 110/64 96 02/10/17 00:35 82 02/10/17 00:00 97.0 80 17 111/60 99 02/09/17 20:15 77 02/09/17 20:00 98.3 77 17 116/68 100 02/09/17 02/09/17 02/10/17 14:59 22:59 06:59 Intake Total 1200 ml 480 ml Output Total 1300 ml 800 ml Balance -100 ml -320 ml Intake Oral 1200 ml 480 ml Output Urine Total 1300 ml 800 ml # Bowel Movements 1 . Laboratory Tests Test 02/09/17 02/10/17 06:09 05:40 White Blood Count 3.1 TH/MM3 3.5 TH/MM3 Red Blood Count 2.64 MIL/MM3 2.62 MIL/MM3 Hemoglobin 9.8 GM/DL 9.6 GM/DL Hematocrit 28.1 % 28.1 % Mean Corpuscular Volume 106.4 FL 107.2 FL Mean Corpuscular Hemoglobin 37.2 PG 36.5 PG Mean Corpuscular Hemoglobin 35.0 % 34.0 % Concent Red Cell Distribution Width 17.7 % 18.4 % Platelet Count 29 TH/MM3 35 TH/MM3 Mean Platelet Volume 9.7 FL 9.4 FL Neutrophils (%) (Auto) 52.6 % 58.3 % Lymphocytes (%) (Auto) 28.7 % 24.9 % Monocytes (%) (Auto) 10.6 % 12.1 % Eosinophils (%) (Auto) 5.0 % 4.2 % Basophils (%) (Auto) 3.1 % 0.5 % Neutrophils # (Auto) 1.6 TH/MM3 2.0 TH/MM3 Lymphocytes # (Auto) 0.9 TH/MM3 0.9 TH/MM3 Monocytes # (Auto) 0.3 TH/MM3 0.4 TH/MM3 Eosinophils # (Auto) 0.2 TH/MM3 0.1 TH/MM3 Basophils # (Auto) 0.1 TH/MM3 0.0 TH/MM3 CBC Comment AUTO DIFF AUTO DIFF Differential Comment AUTO DIFF AUTO DIFF CONFIRMED CONFIRMED Platelet Estimate LOW LOW Platelet Morphology Comment NORMAL NORMAL Haptoglobin LESS THAN 10 MG/DL Laboratory Tests Test 02/09/17 02/10/17 06:09 05:40 Sodium Level 140 MEQ/L 140 MEQ/L Potassium Level 3.6 MEQ/L 3.6 MEQ/L Chloride Level 108 MEQ/L 107 MEQ/L Carbon Dioxide Level 25.6 MEQ/L 24.8 MEQ/L Anion Gap 6 MEQ/L 8 MEQ/L Blood Urea Nitrogen 10 MG/DL 9 MG/DL Creatinine 0.77 MG/DL 0.84 MG/DL Estimat Glomerular Filtration 102 ML/MIN 92 ML/MIN Rate Random Glucose 88 MG/DL 95 MG/DL Calcium Level 8.5 MG/DL 8.1 MG/DL Phosphorus Level 2.3 MG/DL Magnesium Level 1.4 MG/DL Total Bilirubin 2.1 MG/DL Aspartate Amino Transf 29 U/L (AST/SGOT) Alanine Aminotransferase 17 U/L (ALT/SGPT) Alkaline Phosphatase 69 U/L Lactate Dehydrogenase 259 U/L Total Protein 5.3 GM/DL Albumin 1.8 GM/DL Microbiology Date/Time Procedure Status Source Growth 02/09/17 08:17 Stool Occult Blood (ANICETO) - Final Complete Stool Stool HEMOCCULT NEGATIVE 02/09/17 17:40 Stool Occult Blood (ANICETO) - Final Complete Stool Stool HEMOCCULT NEGATIVE Imaging Last Impressions Thoracic Spine MRI 02/09/17 0000 Signed Impressions: Service Date/Time: Thursday, February 09, 2017 08:27 - CONCLUSION: Isolated discogenic edema around the 8-9 level of the thoracic spine. This is new since August 2016. Certainly diskitis is within the differential but I do not see any definite fluid within the disc space or obvious paravertebral thickening to confirm that. There is a broad based bulge at T10-11 which is stable since August. Butch Valadez MD Abdomen/Pelvis CT 02/05/17 0000 Signed Impressions: Service Date/Time: Sunday, February 05, 2017 18:35 - CONCLUSION: 1. Approximate 60%% stenosis involving the left renal artery secondary to atherosclerotic plaque. The right renal artery is patent. 2. Patent mesenteric vessels. 3. Small bilateral pleural effusions which are larger from the prior study. 4. Cirrhosis. 5. Stable low-density areas involving the spleen likely relating to infarcts. The splenic artery is patent. 6. Small volume ascites. 7. Anasarca. Todd Cortes Jr., MD Chest X-Ray 02/04/17 0000 Signed Impressions: Service Date/Time: Saturday, February 04, 2017 01:47 - CONCLUSION: Right jugular line as above. Maninder Berg MD Head CT 02/03/17 0000 Signed Impressions: Service Date/Time: , February 03, 2017 15:02 - CONCLUSION: Slight atrophic and small vessel ischemic changes without any evidence for acute hemorrhage or mass effect. Antoine Ramires MD Ankle X-Ray 02/03/17 0000 Signed Impressions: Service Date/Time: , February 03, 2017 15:18 - CONCLUSION: No definite fracture is seen for technique. Antoine Ramires MD Physical Exam CONSTITUTIONAL/GENERAL: This is an adequately nourished patient, in no apparent distress. TUBES/LINES/DRAINS: R IJ in place wo e/o infx SKIN: No jaundice, rashes, or lesions. . Skin temperature appropriate. Not diaphoretic. EYES: Pupils equal and round and reactive. Extraocular motions intact. No scleral icterus. No injection or drainage. Fundi not examined. ENT: Pt is deaf. Nose without bleeding or purulent drainage. oral mucosae without visible erythema, exudates, masses, or lesions. CARDIOVASCULAR: Regular rate and rhythm without murmurs, gallops, or rubs. No JVD. Peripheral pulses symmetric. RESPIRATORY/CHEST: Symmetric, unlabored respirations. Clear to auscultation. Breath sounds equal bilaterally. No wheezes, rales, or rhonchi. GASTROINTESTINAL: Abdomen soft, non-tender, nondistended. No hepato-splenomegaly , or palpable masses. No guarding. Bowel sounds present. MUSCULOSKELETAL: Extremities without clubbing, cyanosis, or edema. NEUROLOGICAL: Awake and alert. Motor and sensory grossly within normal limits. Follows commands. Speech is difficult to understand - baseline Moves all extremities. PSYCHIATRIC: frustrated, appropriate, cooperative Assessment & Plan Remarks FUO - resolved H/o TAVR Vir strep T spine diskitis in September Isolated discogenic edema around the 8-9 level of the thoracic spine. This is new since August 2016, but was present on September study probably post inflam changes Coag negative staph bacteremia , likely different strains, non sustained - probably no clin significance Gardnelrella bacteriua - doubt clin signisficance dc vancomycin will need repeat BC after 2 weeks off abx and/or with fever If repeat blood clx with same org will need JUANITA Nadine Miranda RN, MD Feb 10, 2017 19:32
[2017-02-11] VITALS (9 sets, daily range): BP systolic 115–127; BP diastolic 68–79; PULSE 69–91; RESP 17–18; TEMP 96.3–98.3; O2SAT 97–98
[2017-02-11] MEDS: POTASSIUM PHOSPHATE/SODIUM PHOSPHATE 250 MG TAB PO SCH ×3 (05:30→21:08)
[2017-02-11] MEDS ORDERED: PHARMACY ORDERED LAB ONE (05:45)
[2017-02-11 06:54] LABS: HEMATOCRIT 27.8 % (39.0-51.0); MEAN CELL VOLUME 108.7 FL (80.0-100.0); MEAN CORPUSCULAR HEMOGLOBIN 37.2 PG (27.0-34.0); MEAN CORPUSCULAR HGB CONC 34.2 % (32.0-36.0); PLATELET COUNT 37 TH/MM3 (150-450); RED BLOOD COUNT 2.56 MIL/MM3 (4.50-5.90); RED CELL DISTRIBUTION WIDTH 18.3 % (11.6-17.2); WHITE BLOOD COUNT 4.1 TH/MM3 (4.0-11.0)
[2017-02-11 07:06] LABS: REVIEW FLAG FINAL
[2017-02-11 07:11] LABS: APTT (PATIENT) 31.3 SEC (24.3-30.1); INTERNATIONAL NORMALIZED RATIO 1.3 RATIO; PROTHROMBIN TIME - PATIENT 14.1 SEC (9.8-11.6)
[2017-02-11 07:13] LABS: BICARBONATE 27.2 MEQ/L (21.0-32.0); MAGNESIUM 1.7 MG/DL (1.5-2.5); POTASSIUM 3.4 MEQ/L (3.5-5.1)
[2017-02-11] MEDS: SODIUM CHLORIDE 0.9% FLUSH 10 ML FLUSH IV FLUSH SCH ×2 (08:02→21:08)
[2017-02-11] MEDS: ARTIFICIAL TEARS OPTH SOLN 15 ML BTL EACH EYE SCH ×3 (08:02→17:09)
[2017-02-11] MEDS: DOCUSATE SODIUM 50 MG/SENNA 8.6 MG TAB PO SCH ×2 (08:02→21:07)
[2017-02-11] MEDS: PANTOPRAZOLE SOD 40 MG DELAYED RELEASE TAB PO SCH (08:02)
[2017-02-11] MEDS: MORPHINE SULFATE 8 MG/ML INJ IV PUSH PRN (17:03)
--- NOTE | 2017-02-11 19:45 | HHI.PR ---
Subjective Remarks Seen with the help of a cottage master. Patient complains of pain that shoots up to the head Patient explains his head feels like pounding BP stable Patient afebrile Objective Vitals Vital Signs Date Time Temp Pulse Resp B/P Pulse Ox O2 Delivery O2 Flow Rate FiO2 02/11/17 16:46 74 02/11/17 16:24 98.1 69 18 115/68 98 02/11/17 12:00 98.3 74 18 118/79 98 02/11/17 08:47 76 02/11/17 08:00 96.3 86 18 127/79 97 02/11/17 04:00 97.6 73 17 127/69 98 02/11/17 04:00 74 02/11/17 00:47 97.0 91 17 117/77 97 02/11/17 00:05 89 02/10/17 23:13 97.9 80 18 123/67 99 02/10/17 22:54 97.7 85 18 130/71 98 02/10/17 20:00 97.9 95 18 129/72 98 02/10/17 20:00 77 I/O 02/10/17 02/10/17 02/10/17 02/11/17 02/11/17 02/11/17 07:00 15:00 23:00 07:00 15:00 23:00 Intake Total 480 ml 1434 ml 900 ml Output Total 800 ml 400 ml 100 ml 360 ml 250 ml 300 ml Balance -320 ml 1034 ml -100 ml -360 ml 650 ml -300 ml Intake Oral 480 ml 720 ml 900 ml IV Total 714 ml Output Urine Total 800 ml 400 ml 100 ml 360 ml 250 ml 300 ml # Voids 1 # Bowel Movements 1 1 Result Diagram: 02/11/17 0405 02/11/17 0405 Imaging Last Impressions Thoracic Spine MRI 02/09/17 0000 Signed Impressions: Service Date/Time: Thursday, February 09, 2017 08:27 - CONCLUSION: Isolated discogenic edema around the 8-9 level of the thoracic spine. This is new since August 2016. Certainly diskitis is within the differential but I do not see any definite fluid within the disc space or obvious paravertebral thickening to confirm that. There is a broad based bulge at T10-11 which is stable since August. Butch Valadez MD Abdomen/Pelvis CT 02/05/17 0000 Signed Impressions: Service Date/Time: Sunday, February 05, 2017 18:35 - CONCLUSION: 1. Approximate 60%% stenosis involving the left renal artery secondary to atherosclerotic plaque. The right renal artery is patent. 2. Patent mesenteric vessels. 3. Small bilateral pleural effusions which are larger from the prior study. 4. Cirrhosis. 5. Stable low-density areas involving the spleen likely relating to infarcts. The splenic artery is patent. 6. Small volume ascites. 7. Anasarca. Todd Cortes Jr., MD Chest X-Ray 02/04/17 0000 Signed Impressions: Service Date/Time: Saturday, February 04, 2017 01:47 - CONCLUSION: Right jugular line as above. Maninder Berg MD Head CT 02/03/17 0000 Signed Impressions: Service Date/Time: , February 03, 2017 15:02 - CONCLUSION: Slight atrophic and small vessel ischemic changes without any evidence for acute hemorrhage or mass effect. Antoine Ramires MD Ankle X-Ray 02/03/17 0000 Signed Impressions: Service Date/Time: , February 03, 2017 15:18 - CONCLUSION: No definite fracture is seen for technique. Antoine Ramires MD Objective Remarks obese, nad, heard of hearing lungs clear to auscultation BL S1S2 RRR no MRG +2 edema in BL lower extremities BL Procedures none Date of Insertion: Feb 04, 2017 Line: Central Venous Catheter Side: Right Location: Internal, Jugular A/P Problem List: (1) Septic shock ICD Code: A41.9 Status: Acute (2) Fever ICD Code: R50.9 Status: Resolved (3) UTI (urinary tract infection) ICD Code: N39.0 Status: Acute (4) Diskitis ICD Code: M46.40 Status: Acute (5) Thrombocytopenia ICD Code: D69.6 Status: Chronic (6) Hyperbilirubinemia ICD Code: E80.6 Status: Acute (7) Anemia ICD Code: D64.9 Status: Acute (8) Coagulopathy ICD Code: D68.9 Status: Acute (9) Hypertension ICD Code: I10 Status: Chronic Assessment and Plan (1) Septic shock Plan: This is a 66-year-old male with past medical history for CAD status post CABG, history of alcohol abuse, liver cirrhosis, liver disease, history of strep viridans endocarditis, who presents to the emergency department with hypotension. Patient presented severe septic shock, secondary to presumed infectious etiology which initially was managed by the tax director The patient treated with IV antibiotics - IV Zosyn. ID consulted Blood cultures positive for staph epidermidis 2 bottles Cardiology consulted for JUANITA as per infectious recommendations. The case was discussed with Dr. Kebede from cardiology. In this patient with such a degree of thrombocytopenia and coagulopathy, JUANITA is risky at this moment. JUANITA not performed. 02/11 Sepsis seems to be resolving with resolving leukopenia and stable vital signs. Patient also afebrile. IV Vancomycin discontinued. The patient will need a repeat blood culture in 2 weeks and if still bacteremic with the same organism will need JUANITA as per ID recommendations. The patient could then be discharged to rehabilitation. (2) Fever Plan: Likely secondary to bacteremia due to staph epidermidis. TTE performed which failed to show any vegetations, although report states that valves were not well seen. (3) UTI (urinary tract infection) Plan: Suspect UTI. Patient currently on IV antibiotics as per infectious disease. Patient initially on IV Zosyn empirically, discontinued and now on IV vancomycin. (4) Diskitis Plan: Patient complains of back pain. Patient has history of discitis at T8- T9. Status post treatment with 8 weeks of antibiotic therapy with IV Rocephin. MRI of the thoracic spine shows possible discitis. As per ID Diskitis present on september study - likely postinflammatory changes as per ID. (5) Thrombocytopenia Plan: Hematology consulted on following. Appreciate recommendations. Acute on chronic thrombus cytopenia likely due to acute illness/DAC/consumption No active bleeding. Platelets are slowly improving. Continue to monitor platelets. (6) Hyperbilirubinemia Plan: Both direct and indirect bilirubin elevation. Likely secondary to liver disease. Haptoglobin likely low due to liver disease. Possibly some degree of hemolysis. (7) Anemia Plan: Iron studies consistent with anemia of chronic disease. B12 within normal range Hemoglobin was falling slowly. Stool Hemoccult negative (8) Coagulopathy Plan: Colopathy sympathetic to sepsis and liver disease. Hematology following, appreciate recommendations. 02/10 Keep Fibrinogen above 150 - Will order 2 units of cryoprecipitate to be given. 02/11 Fibrinogen within normal range at 232. No nasal cryoprecipitate. (9) Hypertension Plan: Blood pressure seems to be stable. Home antihypertensives which include amlodipine and metoprolol are being held. Continue to hold for now. Continue to monitor in the medical floor. Discharge Planning Discharge pending hematology clearance. Problem Qualifiers (1) UTI (urinary tract infection): Qualified Code: N39.0 - Urinary tract infection with hematuria, site unspecified (2) Diskitis: Qualified Code: M46.44 - Discitis of thoracic region (3) Anemia: Qualified Code: D64.9 - Anemia, unspecified type Wayne Blunt MD Feb 11, 2017 19:45
--- NOTE | 2017-02-11 21:39 | PD.ONC.PN ---
Subjective Subjective Remarks no new issues overnight no bleeding/no fever/no pain Labs reviewed Fibrinogen stable/ received 2 units of cryo continue supportive care MIGUEL-TS 13 activity normal. d/w rn Objective Data Date Time Temp Pulse Resp B/P Pulse Ox O2 Delivery O2 Flow Rate FiO2 02/11/17 20:00 97.8 85 17 117/68 98 02/11/17 16:46 74 02/11/17 16:24 98.1 69 18 115/68 98 02/11/17 12:00 98.3 74 18 118/79 98 02/11/17 08:47 76 02/11/17 08:00 96.3 86 18 127/79 97 02/11/17 04:00 97.6 73 17 127/69 98 02/11/17 04:00 74 02/11/17 00:47 97.0 91 17 117/77 97 02/11/17 00:05 89 02/10/17 23:13 97.9 80 18 123/67 99 02/10/17 22:54 97.7 85 18 130/71 98 02/11/17 02/11/17 02/11/17 07:00 15:00 23:00 Intake Total 900 ml Output Total 360 ml 250 ml 300 ml Balance -360 ml 650 ml -300 ml Result Diagram: 02/11/17 0405 02/11/17 0405 Laboratory Results Laboratory Tests Test 02/11/17 02/11/17 04:05 05:35 White Blood Count 4.1 TH/MM3 Red Blood Count 2.56 MIL/MM3 Hemoglobin 9.5 GM/DL Hematocrit 27.8 % Mean Corpuscular Volume 108.7 FL Mean Corpuscular Hemoglobin 37.2 PG Mean Corpuscular Hemoglobin 34.2 % Concent Red Cell Distribution Width 18.3 % Platelet Count 37 TH/MM3 Mean Platelet Volume 9.3 FL Haptoglobin LESS THAN 10 MG/DL Prothrombin Time 14.1 SEC Prothromb Time International 1.3 RATIO Ratio Activated Partial 31.3 SEC Thromboplast Time Fibrinogen 232 mg/dL Sodium Level 141 MEQ/L Potassium Level 3.4 MEQ/L Chloride Level 107 MEQ/L Carbon Dioxide Level 27.2 MEQ/L Anion Gap 7 MEQ/L Blood Urea Nitrogen 10 MG/DL Creatinine 0.80 MG/DL Estimat Glomerular Filtration 97 ML/MIN Rate Random Glucose 95 MG/DL Calcium Level 8.4 MG/DL Phosphorus Level 2.4 MG/DL Magnesium Level 1.7 MG/DL Lactate Dehydrogenase 275 U/L Vancomycin Level Trough 25.5 MCG/ML Culture Results Microbiology Date/Time Procedure Status Source Growth 02/09/17 08:17 Stool Occult Blood (ANICETO) - Final Complete Stool Stool HEMOCCULT NEGATIVE 02/09/17 17:40 Stool Occult Blood (ANICETO) - Final Complete Stool Stool HEMOCCULT NEGATIVE Administered Medications Medications (Trade) Dose Ordered Sig/Blaire Route PRN Reason Start Time Stop Time Status Last Admin Dose Admin Sodium Chloride (NS Flush) 2 ml UNSCH PRN IV FLUSH FLUSH AFTER USING IV ACCESS 02/03/17 17:00 02/08/17 04:06 Sodium Chloride (NS Flush) 2 ml BID IV FLUSH 02/03/17 21:00 02/11/17 21:08 Morphine Sulfate (Morphine Inj) 2 mg Q2H PRN IV PUSH PAIN SCALE 6 TO 10 02/03/17 17:00 02/11/17 17:03 Artificial Tears (Tears Naturale Opth Soln) 1 drop TID EACH EYE 02/03/17 18:00 02/11/17 17:09 Senna/Docusate Sodium (Minna-Colace) 1 tab BID PO 02/03/17 21:00 02/11/17 21:07 Oxycodone HCl (Roxicodone) 5 mg Q4H PRN PO PAIN SCALE 1 TO 5 02/03/17 17:00 02/11/17 08:14 Pantoprazole Sodium (Protonix) 40 mg DAILY PO 02/07/17 09:00 02/11/17 08:02 Potassium Phos/ Sodium Phos (K-Phos Neutral) 250 mg Q8HR PO 02/10/17 14:00 02/11/17 21:08 Objective Remarks GENERAL: nad SKIN: Warm and dry. HEAD: Normocephalic. EYES: No scleral icterus. No injection or drainage. NECK: Supple, trachea midline. No JVD or lymphadenopathy. LYMPHATIC: No adenopathy. CARDIOVASCULAR: Regular rate and rhythm without murmurs. RESPIRATORY: Breath sounds equal bilaterally. No accessory muscle use. GASTROINTESTINAL: Abdomen soft, non-tender, nondistended. EXTREMITIES: No cyanosis, or edema. 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 Hematology has been consulted to evaluate thrombocytopenia. 1. Acute on chronic thrombocytopenia likely due to acute illness/DIC/ consumption. - no bleeding --platelets count 37 2. Hyperbilirubinemia with both direct and indirect bilirubin elevation. This is secondary to liver disease. His haptoglobin is also low likely due to liver disease. low grade hemolysis 3. Anemia. - iron saturation 94%, low TIBC, likely anemia of chronic disease - stool Hemoccult NEGATIVE 4. Resolving sepsis - ID following 5. Coagulopathy due to sepsis and liver disease - transfuse cryo to keep fibrinogen > 150 Max Espinoza MD Feb 11, 2017 21:39
[2017-02-12] VITALS (12 sets, daily range): BP systolic 113–137; BP diastolic 57–99; PULSE 72–104; RESP 16–20; TEMP 96.9–98.4; O2SAT 94–100
[2017-02-12] MEDS: POTASSIUM PHOSPHATE/SODIUM PHOSPHATE 250 MG TAB PO SCH ×3 (05:47→20:48)
[2017-02-12 08:20] LABS: BICARBONATE 29.4 MEQ/L (21.0-32.0); MAGNESIUM 1.6 MG/DL (1.5-2.5); POTASSIUM 3.8 MEQ/L (3.5-5.1)
[2017-02-12] MEDS: DOCUSATE SODIUM 50 MG/SENNA 8.6 MG TAB PO SCH ×2 (09:00→20:49)
[2017-02-12] MEDS: PANTOPRAZOLE SOD 40 MG DELAYED RELEASE TAB PO SCH (10:11)
[2017-02-12] MEDS: ARTIFICIAL TEARS OPTH SOLN 15 ML BTL EACH EYE SCH ×3 (10:11→18:07)
[2017-02-12] MEDS: SODIUM CHLORIDE 0.9% FLUSH 10 ML FLUSH IV FLUSH SCH ×2 (10:11→20:49)
[2017-02-12] MEDS: amLODIPine BESYLATE 5 MG TAB PO SCH (10:11)
[2017-02-12] MEDS: MORPHINE SULFATE 8 MG/ML INJ IV PUSH PRN (10:18)
[2017-02-12] MEDS ORDERED: SUMAtriptan SUCCINATE 50 MG TAB PO ONE (10:45)
[2017-02-12 10:53] LABS: HEMATOCRIT 30.3 % (39.0-51.0); MEAN CELL VOLUME 108.6 FL (80.0-100.0); MEAN CORPUSCULAR HEMOGLOBIN 36.7 PG (27.0-34.0); MEAN CORPUSCULAR HGB CONC 33.8 % (32.0-36.0); PLATELET COUNT 47 TH/MM3 (150-450); RED BLOOD COUNT 2.79 MIL/MM3 (4.50-5.90)
[2017-02-12 10:57] LABS: APTT (PATIENT) 33.5 SEC (24.3-30.1); INTERNATIONAL NORMALIZED RATIO 1.4 RATIO; PROTHROMBIN TIME - PATIENT 15.6 SEC (9.8-11.6)
[2017-02-12 11:02] LABS: REVIEW FLAG FINAL
[2017-02-12 11:10] LABS: BICARBONATE 28.1 MEQ/L (21.0-32.0); POTASSIUM 3.8 MEQ/L (3.5-5.1)
--- NOTE | 2017-02-12 13:12 | HHI.PR ---
Subjective Remarks Patient still c/o of pounding headache which expands to the back denies diarrhea, nausea or vomiting vital signs stable Objective Vitals Vital Signs Date Time Temp Pulse Resp B/P Pulse Ox O2 Delivery O2 Flow Rate FiO2 02/12/17 12:28 97.8 86 20 120/82 99 02/12/17 08:00 96.9 87 20 113/79 100 02/12/17 06:29 97.0 80 17 130/99 95 02/12/17 06:22 87 02/12/17 04:03 80 02/12/17 04:00 98.4 72 17 117/57 94 02/12/17 00:00 97.5 91 17 132/99 96 02/12/17 00:00 86 02/11/17 20:00 80 02/11/17 20:00 97.8 85 17 117/68 98 02/11/17 16:46 74 02/11/17 16:24 98.1 69 18 115/68 98 I/O 02/11/17 02/11/17 02/11/17 02/12/17 02/12/17 02/12/17 06:59 14:59 22:59 06:59 14:59 22:59 Intake Total 900 ml Output Total 360 ml 250 ml 375 ml 820 ml Balance -360 ml 650 ml -375 ml -820 ml Intake Oral 900 ml Output Urine Total 360 ml 250 ml 375 ml 820 ml # Voids 1 # Bowel Movements 1 Result Diagram: 02/12/17 1022 02/12/17 1022 Imaging Last Impressions Thoracic Spine MRI 02/09/17 0000 Signed Impressions: Service Date/Time: Thursday, February 09, 2017 08:27 - CONCLUSION: Isolated discogenic edema around the 8-9 level of the thoracic spine. This is new since August 2016. Certainly diskitis is within the differential but I do not see any definite fluid within the disc space or obvious paravertebral thickening to confirm that. There is a broad based bulge at T10-11 which is stable since August. Butch Valadez MD Abdomen/Pelvis CT 02/05/17 0000 Signed Impressions: Service Date/Time: Sunday, February 05, 2017 18:35 - CONCLUSION: 1. Approximate 60%% stenosis involving the left renal artery secondary to atherosclerotic plaque. The right renal artery is patent. 2. Patent mesenteric vessels. 3. Small bilateral pleural effusions which are larger from the prior study. 4. Cirrhosis. 5. Stable low-density areas involving the spleen likely relating to infarcts. The splenic artery is patent. 6. Small volume ascites. 7. Anasarca. Todd Cortes Jr., MD Chest X-Ray 02/04/17 0000 Signed Impressions: Service Date/Time: Saturday, February 04, 2017 01:47 - CONCLUSION: Right jugular line as above. Maninder Berg MD Head CT 02/03/17 0000 Signed Impressions: Service Date/Time: January 15:02 - CONCLUSION: Slight atrophic and small vessel ischemic changes without any evidence for acute hemorrhage or mass effect. Antoine Ramires MD Ankle X-Ray 02/03/17 0000 Signed Impressions: Service Date/Time: January 15:18 - CONCLUSION: No definite fracture is seen for technique. Antoine Ramires MD Objective Remarks obese, nad, heard of hearing lungs clear to auscultation BL S1S2 RRR no MRG +2 edema in BL lower extremities BL Procedures none Medications and IVs Current Medications Medications (Trade) Dose Ordered Sig/Blaire Route Start Time Stop Time Status Last Admin (Brethine Inj) 1 mg UNSCH PRN SQ 02/03/17 16:00 (NS Flush) 2 ml UNSCH PRN IV FLUSH 02/03/17 17:00 02/08/17 04:06 (NS Flush) 2 ml BID IV FLUSH 02/03/17 21:00 02/12/17 10:11 (Morphine Inj) 2 mg Q2H PRN IV PUSH 02/03/17 17:00 02/12/17 10:18 (Tears Naturale Opth Soln) 1 drop TID EACH EYE 02/03/17 18:00 02/12/17 12:41 (Zofran Inj) 4 mg Q6H PRN IV 02/03/17 17:00 (Minna-Colace) 1 tab BID PO 02/03/17 21:00 02/11/17 21:07 (Milk Of Magnesia Liq) 30 ml Q12H PRN PO 02/03/17 17:00 (Senokot) 17.2 mg Q12H PRN PO 02/03/17 17:00 (Dulcolax Supp) 10 mg DAILY PRN RECTAL 02/03/17 17:00 (Lactulose Liq) 30 ml DAILY PRN PO 02/03/17 17:00 (Roxicodone) 5 mg Q4H PRN PO 02/03/17 17:00 02/11/17 08:14 (Protonix) 40 mg DAILY PO 02/07/17 09:00 02/12/17 10:11 (K-Phos Neutral) 250 mg Q8HR PO 02/10/17 14:00 02/12/17 05:47 (Norvasc) 5 mg DAILY PO 02/12/17 09:00 02/12/17 10:11 Urinary Catheter: No Vascular Central Line Catheter: Yes Assessment to: Continue Date of Insertion: Feb 04, 2017 Line: Central Venous Catheter Side: Right Location: Internal, Jugular A/P Problem List: (1) Septic shock ICD Code: A41.9 Status: Acute (2) Fever ICD Code: R50.9 Status: Resolved (3) UTI (urinary tract infection) ICD Code: N39.0 Status: Acute (4) Diskitis ICD Code: M46.40 Status: Acute (5) Thrombocytopenia ICD Code: D69.6 Status: Chronic (6) Hyperbilirubinemia ICD Code: E80.6 Status: Acute (7) Anemia ICD Code: D64.9 Status: Acute (8) Coagulopathy ICD Code: D68.9 Status: Acute (9) Hypertension ICD Code: I10 Status: Chronic (10) Headache ICD Code: R51 Status: Acute Plan: Patient complains of persistent headache which is chronic and starts in the posterior back of the head and extends to the back and the rest of his body as per the patient's account. Patient described the headache as pounding. Patient states he has hit his head many times in the past. CT of the head obtained on 02/03 shows a slight atrophic and small vessel ischemic changes without any evidence for acute hemorrhage or mass effect. The patient denies any associated nausea. I will give a trial of Imitrex orally and consult neurology. Assessment and Plan (1) Septic shock Plan: This is a 66-year-old male with past medical history for CAD status post CABG, history of alcohol abuse, liver cirrhosis, liver disease, history of strep viridans endocarditis, who presents to the emergency department with hypotension. Patient presented severe septic shock, secondary to presumed infectious etiology which initially was managed by the assistant general manager The patient treated with IV antibiotics - IV Zosyn. ID consulted Blood cultures positive for staph epidermidis 2 bottles Cardiology consulted for JUANITA as per infectious recommendations. The case was discussed with Dr. Kebede from cardiology. In this patient with such a degree of thrombocytopenia and coagulopathy, JUANITA is risky at this moment. JUANITA not performed. 02/11 Sepsis seems to be resolving with resolving leukopenia and stable vital signs. Patient also afebrile. IV Vancomycin discontinued. The patient will need a repeat blood culture in 2 weeks and if still bacteremic with the same organism will need JUANITA as per ID recommendations. The patient could then be discharged to rehabilitation. (2) Fever Plan: Likely secondary to bacteremia due to staph epidermidis. TTE performed which failed to show any vegetations, although report states that valves were not well seen. (3) UTI (urinary tract infection) Plan: Suspect UTI. Patient currently on IV antibiotics as per infectious disease. Patient initially on IV Zosyn empirically, discontinued and now on IV vancomycin. (4) Diskitis Plan: Patient complains of back pain. Patient has history of discitis at T8- T9. Status post treatment with 8 weeks of antibiotic therapy with IV Rocephin. MRI of the thoracic spine shows possible discitis. As per ID Diskitis present on september study - likely postinflammatory changes as per ID. (5) Thrombocytopenia Plan: Hematology consulted on following. Appreciate recommendations. Acute on chronic thrombus cytopenia likely due to acute illness/DAC/consumption No active bleeding. Platelets are slowly improving. Continue to monitor platelets. (6) Hyperbilirubinemia Plan: Both direct and indirect bilirubin elevation. Likely secondary to liver disease. Haptoglobin likely low due to liver disease. Possibly some degree of hemolysis. (7) Anemia Plan: Iron studies consistent with anemia of chronic disease. B12 within normal range Hemoglobin was falling slowly. Stool Hemoccult negative (8) Coagulopathy Plan: Colopathy sympathetic to sepsis and liver disease. Hematology following, appreciate recommendations. 02/10 Keep Fibrinogen above 150 - Will order 2 units of cryoprecipitate to be given. 02/11 Fibrinogen within normal range at 232. no need for cryoprecipitate. 02/12 Fibrinogen at 175. Continue to monitor. (9) Hypertension Plan: Blood pressure seems to be stable. Home antihypertensives which include amlodipine and metoprolol were held. 02/12 BP starting to get elevated - will resume amlodipine. Continue to monitor in the medical floor. Discharge Planning Discharge pending hematology clearance. Problem Qualifiers (1) UTI (urinary tract infection): Qualified Code: N39.0 - Urinary tract infection with hematuria, site unspecified (2) Diskitis: Qualified Code: M46.44 - Discitis of thoracic region (3) Anemia: Qualified Code: D64.9 - Anemia, unspecified type Wayne Blunt MD Feb 12, 2017 13:12
--- NOTE | 2017-02-12 21:46 | RADRPT ---
EXAM DATE/TIME: 02/12/2017 20:58 [facility] COMPARISON: No previous studies available for comparison. INDICATIONS : Syncope. MEDICAL HISTORY : Hypertension. Congestive heart failure. Glaucoma. Cerebrovascular accident. Myocardial infarction . Coronary artery disease. Asthma. Chirrosis. Arthritis. Diabetes. Paracentesis. SURGICAL HISTORY : Tonsillectomy. CABG. Appendectomy. Cardiac catheterization. Coronary stent. Pacemaker. Back surger y. Hip surgery. ENCOUNTER: Initial ACUITY: 1 day PAIN SCORE: 0/10 LOCATION: Bilateral neck PEAK SYSTOLIC VELOCITIES (cm/sec): ICA/CCA RATIO: Right: 1.4 Left: 1.1 ICA: Right: 98.5 Left: 100.0 CCA: Right: 72.5 Left: 93.0 ECA: Right: 82.2 Left: 55.5 VERTEBRAL: Right: 49.9 antegrade Left: 67.3 antegrade Elevated flow velocities and ICA/CCA ratios have been found to correlate with increased degrees of vessel stenosis, calculated as percentage of diameter relative to a normal segment of distal ICA/CCA FINDINGS: RIGHT CAROTID: No significant stenosis is visualized. Moderate plaque. The waveforms are within normal limits. LEFT CAROTID: No significant stenosis is visualized. Mild plaque. The waveforms are within normal limits. VERTEBRAL ARTERIES: Antegrade flow is seen in both vertebral arteries. MISCELLANEOUS: None. CONCLUSION: No hemodynamically significant stenosis in either carotid artery. Iain Villa MD on February 12, 2017 at 21:43 Board Certified Radiologist. This report was verified electronically.
[2017-02-13] VITALS (10 sets, daily range): BP systolic 117–146; BP diastolic 69–89; PULSE 68–89; RESP 17–20; TEMP 95.8–97.7; O2SAT 87–100
[2017-02-13] MEDS: POTASSIUM PHOSPHATE/SODIUM PHOSPHATE 250 MG TAB PO SCH ×3 (05:58→20:36)
--- NOTE | 2017-02-13 07:12 | MB ---
cc: NADINE WHITTINGTON MD DATE OF CONSULTATION: 02/12/2017 REASON FOR CONSULTATION: Persistent headache HISTORY OF PRESENT ILLNESS: Mr. Stovall is a 66-year-old male who was admitted 02/03/2017 with a past medical history of aortic valve endocarditis with strep viridans, T8-9 diskitis, atrial fibrillation, not on anticoagulation therapy secondary to chronic thrombocytopenia, coagulopathy, secondary to underlying liver cirrhosis, hepatitis C and history of ethanol abuse, diabetes mellitus. The patient was initially found home by family members after generalized weakness of two days, unable to get up, vague abdominal pain, found hypotensive, tachycardiac, covered in stool and blood. During the hospital stay, the patient has been complaining of mild headache and dizziness when standing up and denies similar symptoms when he lays or when he sits. He denies double vision, blurred vision, denies slurred speech during these episodes. The patient has right eye with visual impairment and difficulty hearing. Head CT scan done 02/03 revealed slight atrophic small vessel ischemic changes without evidence of acute hemorrhage or mass effect. REVIEW OF SYSTEMS A 12-point review of systems is negative except for what is stated in the HPI. PAST MEDICAL HISTORY 1. Ayee-am-oonmtac. 2. Gastritis 3. Ethanol abuse 4. History of atrial fibrillation 5. Coronary artery disease 6. Hypertension 7. Diabetes, 8. Gastroesophageal paresis. 9. Strep viridans. 10. Endocarditis. 11. T8-9 diskitis. 12. Chronic thrombocytopenia. 13. Cirrhosis. 14. Chronic coagulopathy. PAST SURGICAL HISTORY: 1. TAVR. 2. Three vessel CABG. 3. Coronary artery stents. 4. EGD. MEDICATIONS 1. Lasix. 2. Amlodipine 3. Metoprolol 4. [place]. FAMILY HISTORY: Ethanol, history of coronary artery disease. SOCIAL HISTORY He used to smoke half pack per day from age 15 to 29, ethanol abuse, ongoing. No IV drug abuse. PHYSICAL EXAMINATION General: A 66-year-old male, overweight, not in acute distress. HEENT: [id number], right vision is impaired. Neck: Supple.No signs of meningeal irritation. Cardiovascular: Regular rate and rhythm. Respiratory: Diminished breath sounds throughout. Scattered expiratory wheezes. Gastrointestinal: Abdomen soft, obese. Musculoskeletal: Bilateral leg pitting edema. No clubbing or cyanosis. Neurological: Awake, alert, oriented to time, person and place, mild stuttering / slurring of speech. Speaks in a loud voice, chronic, because of hard of hearing. Right eye visually impaired. Right eye surgical pupil. Left eye normal pupil 2 to 3 millimeters reacting to light. No nystagmus. No diplopia. Intact facial sensation. No facial asymmetry. Upper and lower extremities 5/5, bilaterally symmetrical. Bilateral fine tremor both hands. Intact cerebellar function. Sensation diminished in a stocking glove pattern to light touch and temperature. Stance, patient at the edge of the bed asymptomatic, once he stood up he started to feel dizzy. No ataxia. Psychiatric: Calm, cooperative, intact mood and behavior. LABORATORY DATA WBC 6, hemoglobin 10.2, MCV 108.6, platelet 47, sodium 140, potassium 3.8, calcium 8.3, lactic dehydrogenase 289. INR 14. DIAGNOSTIC IMAGING: -CT scan without contrast was unremarkable for acute intracranial process. DIAGNOSTIC IMPRESSION: -Headache and dizziness Likely postural, orthostatic cardiovascular etiology. -Alcohol abuse. -Thrombocytopenia and anemia. - Hypertension. - Coagulopathy. - Multiple falls. PLAN: 1. Neuro checks q4 hourly. 2. Orthostatic vitals q12 hourly. 3. Carotid ultrasound. 4. Fall precautions. 5. Telemetry. 6. DVT prophylaxis Thank you for the opportunity to participate in care of your patient. MD SARA Pimentel/POONAM /10:49 PM /6:23 AM [facility]
[2017-02-13] MEDS: DOCUSATE SODIUM 50 MG/SENNA 8.6 MG TAB PO SCH ×2 (08:41→20:36)
[2017-02-13] MEDS: SODIUM CHLORIDE 0.9% FLUSH 10 ML FLUSH IV FLUSH SCH ×2 (08:41→20:37)
[2017-02-13] MEDS: PANTOPRAZOLE SOD 40 MG DELAYED RELEASE TAB PO SCH (08:41)
[2017-02-13] MEDS: ARTIFICIAL TEARS OPTH SOLN 15 ML BTL EACH EYE SCH ×3 (08:41→18:12)
[2017-02-13] MEDS: amLODIPine BESYLATE 5 MG TAB PO SCH (08:41)
--- NOTE | 2017-02-13 12:14 | HHI.PR ---
Subjective Remarks Patient still complains of headache when ambulating. As per RN the patient's oxygen saturation dropped to the mid 80s when he was standing up. Denies fevers or chills. Objective Vitals Vital Signs Date Time Temp Pulse Resp B/P Pulse Ox O2 Delivery O2 Flow Rate FiO2 02/13/17 08:07 78 02/13/17 08:00 95.8 72 19 146/74 94 02/13/17 04:00 97.7 83 17 130/81 95 02/13/17 04:00 83 02/13/17 00:00 97.4 74 19 129/69 96 02/13/17 00:00 77 02/12/17 20:00 77 02/12/17 20:00 97.4 93 16 137/85 96 02/12/17 16:27 97.0 97 20 114/77 98 02/12/17 16:12 77 02/12/17 12:28 97.8 86 20 120/82 99 I/O 02/12/17 02/12/17 02/12/17 02/13/17 02/13/17 02/13/17 07:00 15:00 23:00 07:00 15:00 23:00 Intake Total 600 ml 240 ml Output Total 820 ml 950 ml 1000 ml 735 ml Balance -820 ml -350 ml -760 ml -735 ml Intake Oral 600 ml 240 ml Output Urine Total 820 ml 950 ml 1000 ml 735 ml # Bowel Movements 1 0 Result Diagram: 02/12/17 1022 02/12/17 1022 Imaging Last Impressions Carotid Artery Ultrasound 02/12/17 0000 Signed Impressions: Service Date/Time: Sunday, February 12, 2017 20:58 - CONCLUSION: No hemodynamically significant stenosis in either carotid artery. Iain Villa MD Thoracic Spine MRI 02/09/17 0000 Signed Impressions: Service Date/Time: Thursday, February 09, 2017 08:27 - CONCLUSION: Isolated discogenic edema around the 8-9 level of the thoracic spine. This is new since August 2016. Certainly diskitis is within the differential but I do not see any definite fluid within the disc space or obvious paravertebral thickening to confirm that. There is a broad based bulge at T10-11 which is stable since August. Butch Valadez MD Abdomen/Pelvis CT 02/05/17 0000 Signed Impressions: Service Date/Time: Sunday, February 05, 2017 18:35 - CONCLUSION: 1. Approximate 60%% stenosis involving the left renal artery secondary to atherosclerotic plaque. The right renal artery is patent. 2. Patent mesenteric vessels. 3. Small bilateral pleural effusions which are larger from the prior study. 4. Cirrhosis. 5. Stable low-density areas involving the spleen likely relating to infarcts. The splenic artery is patent. 6. Small volume ascites. 7. Anasarca. Todd Cortes Jr., MD Chest X-Ray 02/04/17 0000 Signed Impressions: Service Date/Time: Saturday, February 04, 2017 01:47 - CONCLUSION: Right jugular line as above. Maninder Berg MD Head CT 02/03/17 0000 Signed Impressions: Service Date/Time: , February 03, 2017 15:02 - CONCLUSION: Slight atrophic and small vessel ischemic changes without any evidence for acute hemorrhage or mass effect. Antoine Ramires MD Ankle X-Ray 02/03/17 0000 Signed Impressions: Service Date/Time: January 15:18 - CONCLUSION: No definite fracture is seen for technique. Antoine Ramires MD Objective Remarks obese, nad, heard of hearing lungs clear to auscultation BL S1S2 RRR no MRG +2 edema in BL lower extremities BL Procedures none Medications and IVs Current Medications Medications (Trade) Dose Ordered Sig/Blaire Route Start Time Stop Time Status Last Admin (Brethine Inj) 1 mg UNSCH PRN SQ 02/03/17 16:00 (NS Flush) 2 ml UNSCH PRN IV FLUSH 02/03/17 17:00 02/08/17 04:06 (NS Flush) 2 ml BID IV FLUSH 02/03/17 21:00 02/13/17 08:41 (Morphine Inj) 2 mg Q2H PRN IV PUSH 02/03/17 17:00 02/12/17 10:18 (Tears Naturale Opth Soln) 1 drop TID EACH EYE 02/03/17 18:00 02/13/17 18:12 (Zofran Inj) 4 mg Q6H PRN IV 02/03/17 17:00 (Minna-Colace) 1 tab BID PO 02/03/17 21:00 02/11/17 21:07 (Milk Of Magnesia Liq) 30 ml Q12H PRN PO 02/03/17 17:00 (Senokot) 17.2 mg Q12H PRN PO 02/03/17 17:00 (Dulcolax Supp) 10 mg DAILY PRN RECTAL 02/03/17 17:00 (Lactulose Liq) 30 ml DAILY PRN PO 02/03/17 17:00 (Roxicodone) 5 mg Q4H PRN PO 02/03/17 17:00 02/12/17 23:58 (Protonix) 40 mg DAILY PO 02/07/17 09:00 02/13/17 08:41 (K-Phos Neutral) 250 mg Q8HR PO 02/10/17 14:00 02/13/17 13:06 (Norvasc) 5 mg DAILY PO 02/12/17 09:00 02/13/17 08:41 Date of Insertion: Feb 04, 2017 Line: Central Venous Catheter Side: Right Location: Internal, Jugular A/P Problem List: (1) Septic shock ICD Code: A41.9 Status: Acute (2) Fever ICD Code: R50.9 Status: Resolved (3) UTI (urinary tract infection) ICD Code: N39.0 Status: Acute (4) Diskitis ICD Code: M46.40 Status: Acute (5) Thrombocytopenia ICD Code: D69.6 Status: Chronic (6) Hyperbilirubinemia ICD Code: E80.6 Status: Acute (7) Anemia ICD Code: D64.9 Status: Acute (8) Coagulopathy ICD Code: D68.9 Status: Acute (9) Hypertension ICD Code: I10 Status: Chronic (10) Headache ICD Code: R51 Status: Acute Plan: Patient complains of persistent headache which is chronic and starts in the posterior back of the head and extends to the back and the rest of his body as per the patient's account. Patient described the headache as pounding. Patient states he has hit his head many times in the past. CT of the head obtained on 02/03 shows a slight atrophic and small vessel ischemic changes without any evidence for acute hemorrhage or mass effect. 02/13 appreciate neurology consultation recommendations. Imitrex was partially effective. The patient had decreasing oxygen saturation when ambulating. Headache could be possibly secondary to hypoxemia. We'll check a respiratory walk test to determine if the patient needs oxygen permanently to ambulate. Assessment and Plan (1) Septic shock Plan: This is a 66-year-old male with past medical history for CAD status post CABG, history of alcohol abuse, liver cirrhosis, liver disease, history of strep viridans endocarditis, who presents to the emergency department with hypotension. Patient presented severe septic shock, secondary to presumed infectious etiology which initially was managed by the auto phone installer The patient treated with IV antibiotics - IV Zosyn. ID consulted Blood cultures positive for staph epidermidis 2 bottles Cardiology consulted for JUANITA as per infectious recommendations. The case was discussed with Dr. Kebede from cardiology. In this patient with such a degree of thrombocytopenia and coagulopathy, JUANITA is risky at this moment. JUANITA not performed. 02/11 Sepsis seems to be resolving with resolving leukopenia and stable vital signs. Patient also afebrile. IV Vancomycin discontinued. The patient will need a repeat blood culture in 2 weeks and if still bacteremic with the same organism will need JUANITA as per ID recommendations. The patient could then be discharged to rehabilitation. (2) Fever Plan: Likely secondary to bacteremia due to staph epidermidis. TTE performed which failed to show any vegetations, although report states that valves were not well seen. (3) UTI (urinary tract infection) Plan: Suspect UTI. Patient currently on IV antibiotics as per infectious disease. Patient initially on IV Zosyn empirically, discontinued and now on IV vancomycin. (4) Diskitis Plan: Patient complains of back pain. Patient has history of discitis at T8- T9. Status post treatment with 8 weeks of antibiotic therapy with IV Rocephin. MRI of the thoracic spine shows possible discitis. As per ID Diskitis present on september study - likely postinflammatory changes as per ID. (5) Thrombocytopenia Plan: Hematology consulted on following. Appreciate recommendations. Acute on chronic thrombus cytopenia likely due to acute illness/DAC/consumption No active bleeding. Platelets are slowly improving. Continue to monitor platelets. (6) Hyperbilirubinemia Plan: Both direct and indirect bilirubin elevation. Likely secondary to liver disease. Haptoglobin likely low due to liver disease. Possibly some degree of hemolysis. (7) Anemia Plan: Iron studies consistent with anemia of chronic disease. B12 within normal range Hemoglobin was falling slowly. Stool Hemoccult negative (8) Coagulopathy Plan: Colopathy sympathetic to sepsis and liver disease. Hematology following, appreciate recommendations. 02/10 Keep Fibrinogen above 150 - Will order 2 units of cryoprecipitate to be given. 02/11 Fibrinogen within normal range at 232. no need for cryoprecipitate. 02/12 Fibrinogen at 175. Continue to monitor. (9) Hypertension Plan: Blood pressure seems to be stable. Home antihypertensives which include amlodipine and metoprolol were held. 02/12 BP starting to get elevated - will resume amlodipine. 02/13 BP stable. Continue amlodipine. Continue to monitor in the medical floor. Discharge Planning Possible discharge in 1-2 days. Pending improvement of headache. Problem Qualifiers (1) UTI (urinary tract infection): Qualified Code: N39.0 - Urinary tract infection with hematuria, site unspecified (2) Diskitis: Qualified Code: M46.44 - Discitis of thoracic region (3) Anemia: Qualified Code: D64.9 - Anemia, unspecified type (4) Headache: Qualified Code: R51 - Nonintractable episodic headache, unspecified headache type Wayne Blunt MD Feb 13, 2017 12:14
[2017-02-14] VITALS (7 sets, daily range): BP systolic 103–156; BP diastolic 57–89; PULSE 72–96; RESP 16–18; TEMP 98–99.1; O2SAT 94–100
[2017-02-14] MEDS: POTASSIUM PHOSPHATE/SODIUM PHOSPHATE 250 MG TAB PO SCH ×2 (05:59→14:38)
[2017-02-14] MEDS: ARTIFICIAL TEARS OPTH SOLN 15 ML BTL EACH EYE SCH ×2 (09:00→13:00)
[2017-02-14] MEDS: DOCUSATE SODIUM 50 MG/SENNA 8.6 MG TAB PO SCH (09:47)
[2017-02-14] MEDS: amLODIPine BESYLATE 5 MG TAB PO SCH (09:47)
[2017-02-14] MEDS: PANTOPRAZOLE SOD 40 MG DELAYED RELEASE TAB PO SCH (09:47)
[2017-02-14] MEDS: SODIUM CHLORIDE 0.9% FLUSH 10 ML FLUSH IV FLUSH SCH (09:48)
--- NOTE | 2017-02-14 12:32 | HHI.PR ---
Subjective Remarks headache is improved patient ambulated well Objective Vitals Vital Signs Date Time Temp Pulse Resp B/P Pulse Ox O2 Delivery O2 Flow Rate FiO2 02/14/17 11:00 99.1 83 16 103/67 100 113/76 156/81 02/14/17 08:00 98.2 96 16 114/86 97 02/14/17 04:00 98.2 89 17 130/89 98 02/14/17 04:00 87 02/14/17 00:00 84 02/14/17 00:00 98.9 90 18 133/74 94 02/13/17 20:00 97.6 89 18 123/82 100 02/13/17 20:00 78 02/13/17 16:42 97.3 85 20 117/78 96 02/13/17 16:14 75 02/13/17 12:32 68 130/89 87 02/13/17 12:32 70 128/85 100 I/O 02/13/17 02/13/17 02/13/17 02/14/17 02/14/17 02/14/17 07:00 15:00 23:00 07:00 15:00 23:00 Intake Total 960 ml 240 ml Output Total 735 ml 500 ml 1200 ml 1250 ml Balance -735 ml 460 ml -960 ml -1250 ml Intake Oral 960 ml 240 ml Output Urine Total 735 ml 500 ml 1200 ml 1250 ml # Bowel Movements 0 Result Diagram: 02/12/17 1022 02/12/17 1022 Imaging Last Impressions Carotid Artery Ultrasound 02/12/17 0000 Signed Impressions: Service Date/Time: Sunday, February 12, 2017 20:58 - CONCLUSION: No hemodynamically significant stenosis in either carotid artery. Iain Villa MD Thoracic Spine MRI 02/09/17 0000 Signed Impressions: Service Date/Time: Thursday, February 09, 2017 08:27 - CONCLUSION: Isolated discogenic edema around the 8-9 level of the thoracic spine. This is new since August 2016. Certainly diskitis is within the differential but I do not see any definite fluid within the disc space or obvious paravertebral thickening to confirm that. There is a broad based bulge at T10-11 which is stable since August. Butch Valadez MD Abdomen/Pelvis CT 02/05/17 0000 Signed Impressions: Service Date/Time: Sunday, February 05, 2017 18:35 - CONCLUSION: 1. Approximate 60%% stenosis involving the left renal artery secondary to atherosclerotic plaque. The right renal artery is patent. 2. Patent mesenteric vessels. 3. Small bilateral pleural effusions which are larger from the prior study. 4. Cirrhosis. 5. Stable low-density areas involving the spleen likely relating to infarcts. The splenic artery is patent. 6. Small volume ascites. 7. Anasarca. Todd Cortes Jr., MD Chest X-Ray 02/04/17 0000 Signed Impressions: Service Date/Time: Saturday, February 04, 2017 01:47 - CONCLUSION: Right jugular line as above. Maninder Berg MD Head CT 02/03/17 0000 Signed Impressions: Service Date/Time: January 15:02 - CONCLUSION: Slight atrophic and small vessel ischemic changes without any evidence for acute hemorrhage or mass effect. Antoine Ramires MD Ankle X-Ray 02/03/17 0000 Signed Impressions: Service Date/Time: January 15:18 - CONCLUSION: No definite fracture is seen for technique. Antoine Ramires MD Objective Remarks obese, nad, heard of hearing lungs clear to auscultation BL S1S2 RRR no MRG +2 edema in BL lower extremities BL Procedures none Medications and IVs Current Medications Medications (Trade) Dose Ordered Sig/Blaire Route Start Time Stop Time Status Last Admin (Brethine Inj) 1 mg UNSCH PRN SQ 02/03/17 16:00 (NS Flush) 2 ml UNSCH PRN IV FLUSH 02/03/17 17:00 02/08/17 04:06 (NS Flush) 2 ml BID IV FLUSH 02/03/17 21:00 02/14/17 09:48 (Morphine Inj) 2 mg Q2H PRN IV PUSH 02/03/17 17:00 02/12/17 10:18 (Tears Naturale Opth Soln) 1 drop TID EACH EYE 02/03/17 18:00 02/14/17 09:00 (Zofran Inj) 4 mg Q6H PRN IV 02/03/17 17:00 (Minna-Colace) 1 tab BID PO 02/03/17 21:00 02/14/17 09:47 (Milk Of Magnesia Liq) 30 ml Q12H PRN PO 02/03/17 17:00 (Senokot) 17.2 mg Q12H PRN PO 02/03/17 17:00 (Dulcolax Supp) 10 mg DAILY PRN RECTAL 02/03/17 17:00 (Lactulose Liq) 30 ml DAILY PRN PO 02/03/17 17:00 (Roxicodone) 5 mg Q4H PRN PO 02/03/17 17:00 02/14/17 09:47 (Protonix) 40 mg DAILY PO 02/07/17 09:00 02/14/17 09:47 (K-Phos Neutral) 250 mg Q8HR PO 02/10/17 14:00 02/14/17 05:59 (Norvasc) 5 mg DAILY PO 02/12/17 09:00 02/14/17 09:47 Vascular Central Line Catheter: Yes Assessment to: Continue Date of Insertion: Feb 04, 2017 Line: Central Venous Catheter Side: Right Location: Internal, Jugular A/P Problem List: (1) Septic shock ICD Code: A41.9 Status: Acute (2) Fever ICD Code: R50.9 Status: Resolved (3) UTI (urinary tract infection) ICD Code: N39.0 Status: Acute (4) Diskitis ICD Code: M46.40 Status: Acute (5) Thrombocytopenia ICD Code: D69.6 Status: Chronic (6) Hyperbilirubinemia ICD Code: E80.6 Status: Acute (7) Anemia ICD Code: D64.9 Status: Acute (8) Coagulopathy ICD Code: D68.9 Status: Acute (9) Hypertension ICD Code: I10 Status: Chronic (10) Headache ICD Code: R51 Status: Acute Plan: Patient complains of persistent headache which is chronic and starts in the posterior back of the head and extends to the back and the rest of his body as per the patient's account. Patient described the headache as pounding. Patient states he has hit his head many times in the past. CT of the head obtained on 02/03 shows a slight atrophic and small vessel ischemic changes without any evidence for acute hemorrhage or mass effect. 02/13 appreciate neurology consultation recommendations. Imitrex was partially effective. The patient had decreasing oxygen saturation when ambulating. Headache could be possibly secondary to hypoxemia. We'll check a respiratory walk test to determine if the patient needs oxygen permanently to ambulate. 02/14 Resp home walk test was negative. Assessment and Plan (1) Septic shock Plan: This is a 66-year-old male with past medical history for CAD status post CABG, history of alcohol abuse, liver cirrhosis, liver disease, history of strep viridans endocarditis, who presents to the emergency department with hypotension. Patient presented severe septic shock, secondary to presumed infectious etiology which initially was managed by the instrument specialist The patient treated with IV antibiotics - IV Zosyn. ID consulted Blood cultures positive for staph epidermidis 2 bottles Cardiology consulted for JUANITA as per infectious recommendations. The case was discussed with Dr. Kebede from cardiology. In this patient with such a degree of thrombocytopenia and coagulopathy, JUANITA is risky at this moment. JUANITA not performed. 02/11 Sepsis seems to be resolving with resolving leukopenia and stable vital signs. Patient also afebrile. IV Vancomycin discontinued. The patient will need a repeat blood culture in 2 weeks and if still bacteremic with the same organism will need JUANITA as per ID recommendations. The patient could then be discharged to rehabilitation. (2) Fever Plan: Likely secondary to bacteremia due to staph epidermidis. TTE performed which failed to show any vegetations, although report states that valves were not well seen. (3) UTI (urinary tract infection) Plan: Suspect UTI. Patient currently on IV antibiotics as per infectious disease. Patient initially on IV Zosyn empirically, discontinued and now on IV vancomycin. (4) Diskitis Plan: Patient complains of back pain. Patient has history of discitis at T8- T9. Status post treatment with 8 weeks of antibiotic therapy with IV Rocephin. MRI of the thoracic spine shows possible discitis. As per ID Diskitis present on september study - likely postinflammatory changes as per ID. (5) Thrombocytopenia Plan: Hematology consulted on following. Appreciate recommendations. Acute on chronic thrombus cytopenia likely due to acute illness/DAC/consumption No active bleeding. Platelets are slowly improving. Continue to monitor platelets. (6) Hyperbilirubinemia Plan: Both direct and indirect bilirubin elevation. Likely secondary to liver disease. Haptoglobin likely low due to liver disease. Possibly some degree of hemolysis. (7) Anemia Plan: Iron studies consistent with anemia of chronic disease. B12 within normal range Hemoglobin was falling slowly. Stool Hemoccult negative (8) Coagulopathy Plan: Colopathy sympathetic to sepsis and liver disease. Hematology following, appreciate recommendations. 02/10 Keep Fibrinogen above 150 - Will order 2 units of cryoprecipitate to be given. 02/11 Fibrinogen within normal range at 232. no need for cryoprecipitate. 02/12 Fibrinogen at 175. Continue to monitor. (9) Hypertension Plan: Blood pressure seems to be stable. Home antihypertensives which include amlodipine and metoprolol were held. 02/12 BP starting to get elevated - will resume amlodipine. 02/13 BP stable. Continue amlodipine. Continue to monitor in the medical floor. Discharge Planning DC to SNF today Problem Qualifiers (1) UTI (urinary tract infection): Qualified Code: N39.0 - Urinary tract infection with hematuria, site unspecified (2) Diskitis: Qualified Code: M46.44 - Discitis of thoracic region (3) Anemia: Qualified Code: D64.9 - Anemia, unspecified type (4) Headache: Qualified Code: R51 - Nonintractable episodic headache, unspecified headache type Wayne Blunt MD Feb 14, 2017 12:32
[2017-02-14] MEDS ORDERED: HYDR-3366 PO (12:44)
--- NOTE | 2017-02-14 12:56 | HHI.DCPOC ---
Discharge Care Plan Diagnosis: (1) Fever (2) Headache (3) Hypertension (4) UTI (urinary tract infection) (5) Hyperbilirubinemia (6) Anemia (7) History of discitis (8) Alcoholic cirrhosis of liver with ascites (9) Sepsis (10) Thrombocytopenia (11) S/P TAVR (transcatheter aortic valve replacement) Goals to Promote Your Health * To prevent worsening of your condition and complications * To maintain your health at the optimal level Directions to Meet Your Goals Take your medications as prescribed Follow your dietary instruction Follow activity as directed Keep your appointments as scheduled Take your immunizations and boosters as scheduled If your symptoms worsen call your PCP, if no PCP go to Urgent Care Center or Emergency Room Smoking is Dangerous to Your Health. Avoid second hand smoke Call the 24-hour hour crisis hotline for domestic abuse at Wayne Blunt MD Feb 14, 2017 12:56
--- NOTE | 2017-02-14 12:57 | HHI.FF ---
Face to Face Verification Diagnosis: (1) Fever (2) Headache (3) Hypertension (4) UTI (urinary tract infection) (5) Hyperbilirubinemia (6) Anemia (7) History of discitis (8) Alcoholic cirrhosis of liver with ascites (9) Elevated troponin (10) Sepsis (11) S/P TAVR (transcatheter aortic valve replacement) Physical Therapy Order: Improve ambulation, Strength and gait training Home Health Nursing Order: Nursing assessment with vital signs I have seen patient Dallas Stovall on 02/14/17. My clinical findings support the need for the requested home health care services because: Need for psychosocial assistance High risk of falls Infection w/ risk of complications I certify that my clinical findings support that this patient is homebound because: Impaired cognitive ability/safety Unsteady gait/balance Unsafe to leave home unassisted Need for psychosocial assistance Unable to use public transportation Wayne Blunt MD Feb 14, 2017 12:57
== END 2017-02-14 17:40 | disposition home health service (06) | DRG 871 ==
LOC: NEPC 13:31 → NEDA 16:08 → HIMW 16:55 → HOCB 02-05 23:05
PROVIDERS: ADMIT Internal Medicine Critical Care Medicine; ATTEND Hospitalist
PROC: 30233R1 Transfusion of Nonautologous Platelets into Peripheral Vein, Percutaneous Approach (ICD-10-PCS; principal; 2017-02-03)
PROC: 30233K1 Transfusion of Nonautologous Frozen Plasma into Peripheral Vein, Percutaneous Approach (ICD-10-PCS; 2017-02-03)
PROC: 30233M1 Transfusion of Nonautologous Plasma Cryoprecipitate into Peripheral Vein, Percutaneous Approach (ICD-10-PCS; 2017-02-10)
DX: A41.1 Sepsis due to other specified staphylococcus (principal); R65.21 Severe sepsis with septic shock; D65 Disseminated intravascular coagulation [defibrination syndrome]; N17.9 Acute kidney failure, unspecified; D61.818 Other pancytopenia; E87.2 Acidosis; I11.0 Hypertensive heart disease with heart failure; D69.59 Other secondary thrombocytopenia; E87.1 Hypo-osmolality and hyponatremia; N39.0 Urinary tract infection, site not specified; E88.09 Other disorders of plasma-protein metabolism, not elsewhere classified; I25.10 Atherosclerotic heart disease of native coronary artery without angina pectoris; I48.2 Chronic atrial fibrillation; B18.2 Chronic viral hepatitis C; D53.9 Nutritional anemia, unspecified; E83.42 Hypomagnesemia; B96.89 Other specified bacterial agents as the cause of diseases classified elsewhere; K70.30 Alcoholic cirrhosis of liver without ascites; D73.5 Infarction of spleen; H90.0 Conductive hearing loss, bilateral; I25.2 Old myocardial infarction; M46.44 Discitis, unspecified, thoracic region; R51 Headache; Z95.1 Presence of aortocoronary bypass graft; Z95.2 Presence of prosthetic heart valve; Z95.5 Presence of coronary angioplasty implant and graft; Z86.73 Personal history of transient ischemic attack (TIA), and cerebral infarction without residual deficits; Z87.891 Personal history of nicotine dependence; Z88.8 Allergy status to other drugs, medicaments and biological substances
CPT/HCPCS: 36430; 36556; 36600; 51702; 70450; 71010; 72157; 73610; 74174; 74176; 76937; 80048; 80053; 80076; 80202; 81001; 82140; 82150; 82247; 82248; 82272; 82533; 82550; 82570; 82607; 82747; 82805; 82948; 83010; 83540; 83550; 83605; 83615; 83690; 83735; 84100; 84300; 84443; 84466; 84484; 85007; 85025; 85027; 85060; 85384; 85397; 85610; 85730; 86403; 86927; 86965; 87040; 87077; 87086; 87186; 87205; 87641; 93005; 93308; 93880; 94150; 94620; A9579; C9113; J2270; J2543; J3370; J3475; J7030; J7040; J7050; P9017; P9035; Q9967

== ENCOUNTER 2017-03-13 12:41 | Inpatient (IN) | payer OTHER, MEDICARE ==
[2017-03-13] VITALS (13 sets, daily range): BP systolic 91–130; BP diastolic 52–75; PULSE 84–138; RESP 18–24; TEMP 98.7; O2SAT 93–99
[~2017-03-13] VITALS: Ht 182.9 cm; Wt 123.4 kg
[~2017-03-13 12:41] MED LIST changes: +AMLO5TAB2 PO; +FURO1TAB60 PO; +GETGO ROLLING W1 MI1; -[UNRECOGNIZED DRUG - REMARK]; -water pill
[2017-03-13] MEDS ORDERED: SODIUM CHLOR 0.9% 1000 ML INJ 1,000 ML IV SCH (13:05)
[2017-03-13] MEDS ORDERED: MORPHINE SULFATE 4 MG/ML INJ IV PUSH ONE (13:15)
[2017-03-13] MEDS ORDERED: ONDANSETRON HCL 4 MG/2 ML VIAL IVP ONE (13:15)
[2017-03-13] MEDS ORDERED: SODIUM CHLORIDE 0.9% FLUSH 10 ML FLUSH IV FLUSH PRN ×2 (13:15→18:15)
--- NOTE | 2017-03-13 13:19 | PD ---
HPI Chief Complaint: Abdominal Pain Time Seen by Provider: 13:14 Travel History International Travel<30 days: No Contact w/Intl Traveler<30days: No Traveled to known affect area: No History of Present Illness HPI Patient comes in complaining of Abdominal pain throughout his abdomen that began yesterday. Patient states that he's vomited 14-15 times. Patient denies doing anything for this. Patient states pain is more right that radiates throughout his abdomen. Denies any chest pain, fevers, change in bowel or bladder, or back pain. Denies anything making this better or worse. Denies any hematemesis or coffee-ground emesis. 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) Glaucoma: Yes Genitourinary: No Hypertension: Yes Immune Disorder: No Implanted Vascular Access Dvce: Yes (picc line r arm ) Musculoskeletal: Yes (Arthritis ) Neurologic: No Psychiatric: No Reproductive: No Respiratory: Yes Immunizations Current: Yes Myocardial Infarction: Yes Pneumonia: Yes Radiation Therapy: No Sickle Cell Disease: No Sleep Apnea: No Thyroid Disease: No Past Surgical History Abdominal Surgery: Yes (paracentesis) Appendectomy: Yes Cardiac Surgery: Yes (VALVE REPLACEMENT, CABG x3 ) Coronary Stent: Yes Ear Surgery: No Eye Surgery: No Genitourinary Surgery: No Gynecologic Surgery: No Neurologic Surgery: No Oral Surgery: No Thoracic Surgery: No Tonsillectomy: Yes Other Surgery: Yes (Paracentesis) Social History Alcohol Use: No Tobacco Use: No Substance Use: No (HX OF DRUG AND ALCOHOL ABUSE) Allergies-Medications (Allergen,Severity, Reaction): Coded Allergies: lisinopril (Unverified Allergy, Intermediate, 03/09/17) Reported Meds & Prescriptions Reported Meds & Active Scripts Active [place] (Hydrocodone-Acetaminophen) 10-325 Mg Tab 1 Tab PO Q4H PRN Walker Rolling/GetGo (Device) 1 Mis Mis 1 Ea .ROUTE DIRECTED Reported Lasix (Furosemide) 40 Mg Tab 40 Mg PO DAILY Amlodipine (Amlodipine Besylate) 5 Mg Tab 5 Mg PO DAILY Review of Systems Except as stated in HPI: all other systems reviewed are Neg Physical Exam Narrative GENERAL: Well-developed, overly nourished, in no acute distress, and non-ill appearing. SKIN: Focused skin assessment warm and dry. Mild ecchymosis noted lower abdominal patient states is from his dog jumping on him. Patient's chronic venous stasis dermatitis noted bilateral lower extremities that he states is unchanged. HEAD: Atraumatic. Normocephalic. EYES: Pupils equal and round. EOMI. No scleral icterus. No injection or drainage. ENT: No nasal bleeding or discharge. Mucous membranes pink and moist. NECK: Trachea midline. Supple. No nuclear rigidity. CARDIOVASCULAR: Tachycardia rate and rhythm. No murmur appreciated. RESPIRATORY: No accessory muscle use. No respiratory distress. Clear to auscultation. Breath sounds equal bilaterally. GASTROINTESTINAL: Abdomen soft, nondistended, and no guarding. Hepatic margins palpable. Hypoactive bowel sounds 4. No pulsatile mass. Patient reports tenderness throughout. MUSCULOSKELETAL: No obvious deformities. No clubbing. No cyanosis. No edema. Full range of motion. NEUROLOGICAL: Awake and alert. Motor grossly within normal limits. Normal speech. PSYCHIATRIC: Appropriate mood and affect; insight and judgment normal. Data Data Last Documented VS Vital Signs Date Time Temp Pulse Resp B/P (MAP) Pulse Ox O2 Delivery O2 Flow Rate FiO2 03/13/17 17:46 93 99/55 (70) 03/13/17 17:18 20 99 Room Air 03/13/17 12:53 98.7 Orders Orders Complete Blood Count With Diff (03/13/17 13:05) Comprehensive Metabolic Panel (03/13/17 13:05) Lipase (03/13/17 13:05) Prothrombin Time / Inr (Pt) (03/13/17 13:05) Act Partial Throm Time (Ptt) (03/13/17 13:05) Ct Abd/Pel W Iv Contrast(Rout) (03/13/17 13:05) Iv Access Insert/Monitor (03/13/17 13:05) Ecg Monitoring (03/13/17 13:05) Oximetry (03/13/17 13:05) Morphine Inj (Morphine Inj) (03/13/17 13:15) Ondansetron Inj (Zofran Inj) (03/13/17 13:15) Sodium Chlor 0.9% 1000 Ml Inj (Ns 1000 M (03/13/17 13:05) Sodium Chloride 0.9% Flush (Ns Flush) (03/13/17 13:15) Electrocardiogram (03/13/17 13:05) Chest, Single Ap (03/13/17 13:05) Urinalysis - C+S If Indicated (03/13/17 13:15) Diltiazem Inj (Cardizem Inj) (03/13/17 14:00) Ckmb (Isoenzyme) Profile (03/13/17 13:55) Troponin I (03/13/17 13:55) Diltiazem Inj (Cardizem Inj) (03/13/17 14:45) Lactic Acid Sepsis Protocol (03/13/17 14:42) Blood Culture (03/13/17 14:42) Piperacil-Tazo 4.5 Gm Premix (Zosyn 4.5 (03/13/17 14:45) Azithromycin Inj (Zithromax Inj) (03/13/17 14:45) Albuterol-Ipratropium Neb (Duoneb Neb) (03/13/17 14:45) Vascular Access Team Consult/P PRN (03/13/17 16:21) Vascular Poc Ultrasound (03/13/17 ) Sodium Chlor 0.9% 1000 Ml Inj (Ns 1000 M (03/13/17 16:30) Sodium Chlor 0.9% 1000 Ml Inj (Ns 1000 M (03/13/17 16:30) Vancomycin Inj (Vancomycin Inj) (03/13/17 16:30) Metronidazole 500 Mg Inj (Flagyl 500 Mg (03/13/17 16:30) Iohexol 350 Inj (Omnipaque 350 Inj) (03/13/17 17:15) Furosemide (Lasix) (03/14/17 09:00) Acetamin-Hydrocod 325-10 Mg ([place] 10-32 (03/13/17 18:15) Admit To Inpatient (03/13/17 ) Code Status (03/13/17 18:10) Vital Signs (Adult) Q4H (03/13/17 18:10) Activity Oob Ad Elise (03/13/17 18:10) Humidifier Maintenance Worker / Telemetry .CONTINUOUS (03/13/17 18:10) Intake + Output TED.QSHIFT (03/13/17 18:10) Notify Dr: Other (03/13/17 18:10) Diet Heart Healthy (03/13/17 Dinner) Sodium Chlor 0.9% 1000 Ml Inj (Ns 1000 M (03/13/17 18:10) Sodium Chloride 0.9% Flush (Ns Flush) (03/13/17 18:15) Sodium Chloride 0.9% Flush (Ns Flush) (03/13/17 21:00) Acetaminophen (Tylenol) (03/13/17 18:15) Ondansetron Inj (Zofran Inj) (03/13/17 18:15) Basic Metabolic Panel (Bmp) (03/14/17 06:00) Complete Blood Count With Diff (03/14/17 06:00) Prothrombin Time / Inr (Pt) (03/14/17 06:00) Blood Culture (03/13/17 18:10) Resp Oxygen Armaan C Titrat 1-4 L (03/13/17 ) Pt Request For Service (03/13/17 18:10) Case Management Consult (03/13/17 18:10) Naloxone Inj (Narcan Inj) (03/13/17 18:15) Docusate Sodium-Senna (Minna-Colace) (03/13/17 21:00) Magnesium Hydroxide Liq (Milk Of Magnesi (03/13/17 18:15) Sennosides (Senokot) (03/13/17 18:15) Bisacodyl Supp (Dulcolax Supp) (03/13/17 18:15) Lactulose Liq (Lactulose Liq) (03/13/17 18:15) Inpatient Certification (03/13/17 ) Admit Order (Ed Use Only) (03/13/17 18:25) Labs Laboratory Tests Test 03/13/17 13:40 03/13/17 14:55 03/13/17 17:56 03/13/17 18:00 White Blood Count 6.4 TH/MM3 Red Blood Count 3.40 MIL/MM3 Hemoglobin 13.2 GM/DL Hematocrit 39.0 % Mean Corpuscular Volume 114.6 FL Mean Corpuscular Hemoglobin 38.9 PG Mean Corpuscular Hemoglobin Concent 34.0 % Red Cell Distribution Width 17.5 % Platelet Count 32 TH/MM3 Mean Platelet Volume 8.9 FL Neutrophils (%) (Auto) 90.6 % Lymphocytes (%) (Auto) 6.7 % Monocytes (%) (Auto) 1.9 % Eosinophils (%) (Auto) 0.7 % Basophils (%) (Auto) 0.1 % Neutrophils # (Auto) 5.8 TH/MM3 Lymphocytes # (Auto) 0.4 TH/MM3 Monocytes # (Auto) 0.1 TH/MM3 Eosinophils # (Auto) 0.0 TH/MM3 Basophils # (Auto) 0.0 TH/MM3 CBC Comment AUTO DIFF Differential Total Cells Counted 100 Neutrophils % (Manual) 71 % Band Neutrophils % 22 % Lymphocytes % 3 % Monocytes % 3 % Eosinophils % 1 % Neutrophils # (Manual) 6.0 TH/MM3 Differential Comment FINAL DIFF MANUAL Platelet Estimate LOW Platelet Morphology Comment NORMAL Prothrombin Time 17.7 SEC Prothromb Time International Ratio 1.6 RATIO Activated Partial Thromboplast Time 32.9 SEC Blood Urea Nitrogen 25 MG/DL Creatinine 1.31 MG/DL Random Glucose 63 MG/DL Total Protein 6.2 GM/DL Albumin 2.2 GM/DL Calcium Level 8.7 MG/DL Alkaline Phosphatase 99 U/L Aspartate Amino Transf (AST/SGOT) 59 U/L Alanine Aminotransferase (ALT/SGPT) 27 U/L Total Bilirubin 5.4 MG/DL Sodium Level 133 MEQ/L Potassium Level 4.1 MEQ/L Chloride Level 102 MEQ/L Carbon Dioxide Level 20.7 MEQ/L Anion Gap 10 MEQ/L Estimat Glomerular Filtration Rate 55 ML/MIN Total Creatine Kinase 73 U/L Troponin I 0.05 NG/ML Lipase 60 U/L Lactic Acid Level 4.2 mmol/L Urine Color LIGHT-BROWN Urine Turbidity HAZY Urine pH 5.5 Urine Specific [place] 1.030 Urine Protein 30 mg/dL Urine Glucose (UA) NEG mg/dL Urine Ketones NEG mg/dL Urine Occult Blood NEG Urine Nitrite NEG Urine Bilirubin SMALL Urine Urobilinogen 2.0 MG/DL Urine Leukocyte Esterase TRACE Urine RBC 1 /hpf Urine WBC 3 /hpf Urine Squamous Epithelial Cells 1 /hpf Urine Hyaline Casts 6 /lpf Urine Mucus FEW /lpf Microscopic Urinalysis Comment CULT NOT INDICATED MDM Medical Decision Making Medical Screen Exam Complete: Yes Emergency Medical Condition: Yes Interpretation(s) EKG reviewed by Dr. Correa shows atrial fibrillation with RVR ventricular rate of 131. No STEMI. Chest x-ray by the radiologist shows: 1. Right basilar consolidation. 2. Suspected right pleural effusion. CT the abdomen and pelvis read by the radiologist shows: 1. Multiple splenic infarctions. 2. Cirrhosis and signs of portal venous hypertension not significantly changed. 3. There is passive congestion of the mesentery with edematous small and large bowel loops in addition to anasarca worse since the prior exam. Differential Diagnosis Diverticulitis, ascites, obstruction, colitis, peritonitis, ileus, other Narrative Course Patient was seen and examined. IV is established. Patient is placed on director product. Initial laboratory looks studies were ordered. Patient is given morphine for pain, Zofran for nausea, and hydrated with IV fluids. 1410 patient reassessed resting comfortably in bed. No active vomiting. Heart rate on cardiac monitors noted to be in the 80s. 1436 patient reassessed found sleeping comfortably in no acute distress heart rate monitor going between 90s and low 110s. We'll start patient on a Cardizem drip. After the chest x-ray patient was started on IV antibiotics for hospital- acquired pneumonia as patient was just released from the hospital approximately one month ago. Vancomycin and Flagyl also added to cover SBP secondary to the elevated lactic acid and patient's abdominal exam. Discussed patient with Dr. Correa saw and evaluated the patient is given plan of care and disposition. Discussed all findings with patient, who is agreeable for admission. Discussed patient with hospitalist, who is agreeable to admit the patient. Physician Communication Physician Communication [id number] Burkett, who is agreeable to admit the patient. Diagnosis Primary Impression: Pneumonia Qualified Codes: J18.1 - Lobar pneumonia, unspecified organism Additional Impressions: Atrial fibrillation with RVR Abdominal pain Qualified Codes: R10.84 - Generalized abdominal pain Admitting Information Admitting Physician Requests: Admit Condition: Stable Chuy Delaney Mar 13, 2017 13:19
[2017-03-13 13:51] LABS: AUTOMATED NEUTROPHIL # 5.8 TH/MM3 (1.8-7.7); BASOPHIL % 0.1 % (0.0-2.0); EOSINOPHIL % 0.7 % (0.0-4.0); LYMPH % 6.7 % (9.0-44.0); LYMPHOCYTE # 0.4 TH/MM3 (1.0-4.8); MEAN CELL VOLUME 114.6 FL (80.0-100.0); MEAN CORPUSCULAR HEMOGLOBIN 38.9 PG (27.0-34.0); MONO % 1.9 % (0.0-8.0); NEUT % 90.6 % (16.0-70.0); PLATELET COUNT 32 TH/MM3 (150-450); RED CELL DISTRIBUTION WIDTH 17.5 % (11.6-17.2); WHITE BLOOD COUNT 6.4 TH/MM3 (4.0-11.0)
[2017-03-13 13:52] LABS: HEMO FLAGS AUTO DIFF
--- NOTE | 2017-03-13 13:58 | RADRPT ---
EXAM DATE/TIME: 03/13/2017 13:32 [facility] COMPARISON: CHEST SINGLE AP, February 04, 2017, 1:47. INDICATIONS : Chest pain. MEDICAL HISTORY : Hypertension. Diabetes mellitus type II. Congestive heart failure. Myocardial infarction. Coronar y artery disease. Asthma. SURGICAL HISTORY : ENCOUNTER: Initial ACUITY: 1 day PAIN SCORE: 1/10 LOCATION: Bilateral lower chest FINDINGS: A single view of the chest demonstrates right basilar consolidation. Small right pleural effusion junior pected. Heart is large. Left lung clear.. Osseous structures are intact. CONCLUSION: 1. Right basilar consolidation. 2. Suspected right pleural effusion. Iain Villa MD on March 13, 2017 at 13:56 Board Certified Radiologist. This report was verified electronically.
[2017-03-13] MEDS ORDERED: DILTIAZEM HCL 25 MG/5 ML VIAL IV ONE (14:00)
[2017-03-13 14:01] LABS: APTT (PATIENT) 32.9 SEC (24.3-30.1); INTERNATIONAL NORMALIZED RATIO 1.6 RATIO; PROTHROMBIN TIME - PATIENT 17.7 SEC (9.8-11.6)
[2017-03-13 14:09] LABS: ALKALINE PHOSPHATASE 99 U/L (45-117); TOTAL BILIRUBIN ADULT 5.4 MG/DL (0.2-1.0)
[2017-03-13 14:15] LABS: ALT (GPT) 27 U/L (12-78); ANION GAP 10 MEQ/L (5-15); AST (GOT) 59 U/L (15-37); BICARBONATE 20.7 MEQ/L (21.0-32.0); BLOOD UREA NITROGEN 25 MG/DL (7-18); CHLORIDE 102 MEQ/L (98-107); GLOMERULAR FILTRATION RATE 55 ML/MIN (>89); SODIUM (NA) 133 MEQ/L (136-145)
[2017-03-13 14:17] LABS: POTASSIUM 4.1 MEQ/L (3.5-5.1)
[2017-03-13 14:24] LABS: BANDS 22 % (0-6); EOSINOPHILS 1 % (0-4); POLYS (SEG NEUTROPHILS) 71 % (16-70); WBC DIFF SAMPLE 100
[2017-03-13 14:25] LABS: PLATELET ESTIMATE SMEAR LOW (NORMAL); PLATELET MORPHOLOGY NORMAL (NORMAL); SCAN/DIFF FINAL DIFF MANUAL
[2017-03-13] MEDS ORDERED: AZITHROMYCIN INJ 500 MG in SODIUM CHLOR 0.9% 250 ML INJ 250 ML IV ONE (14:45)
[2017-03-13] MEDS ORDERED: PIPERACIL-TAZO 4.5 GM PREMIX 100 ML IV ONE (14:45)
[2017-03-13] MEDS ORDERED: RESP: ALBUTEROL 2.5 MG/IPRATROPIUM 0.5 MG NEB (SCH) INH ONE (14:45)
[2017-03-13] MEDS: DILTIAZEM INJ 125 MG in SODIUM CHLORIDE 0.9% INJ 100 ML IV SCH (15:48)
[2017-03-13] MEDS ORDERED: VANCOMYCIN INJ 1,000 MG in SODIUM CHLOR 0.9% 250 ML INJ 250 ML IV ONE (16:30)
[2017-03-13] MEDS ORDERED: metroNIDAZOLE 500 MG INJ 100 ML IV ONE (16:30)
[2017-03-13] MEDS ORDERED: SODIUM CHLOR 0.9% 1000 ML INJ 1,000 ML IV ONE ×2 (16:30)
--- NOTE | 2017-03-13 16:39 | PD ---
Data Data Last Documented VS Vital Signs Date Time Temp Pulse Resp B/P (MAP) Pulse Ox O2 Delivery O2 Flow Rate FiO2 03/13/17 18:15 90 20 95/57 (70) 94 Room Air 03/13/17 12:53 98.7 Orders Orders Complete Blood Count With Diff (03/13/17 13:05) Comprehensive Metabolic Panel (03/13/17 13:05) Lipase (03/13/17 13:05) Prothrombin Time / Inr (Pt) (03/13/17 13:05) Act Partial Throm Time (Ptt) (03/13/17 13:05) Ct Abd/Pel W Iv Contrast(Rout) (03/13/17 13:05) Iv Access Insert/Monitor (03/13/17 13:05) Ecg Monitoring (03/13/17 13:05) Oximetry (03/13/17 13:05) Morphine Inj (Morphine Inj) (03/13/17 13:15) Ondansetron Inj (Zofran Inj) (03/13/17 13:15) Sodium Chlor 0.9% 1000 Ml Inj (Ns 1000 M (03/13/17 13:05) Sodium Chloride 0.9% Flush (Ns Flush) (03/13/17 13:15) Electrocardiogram (03/13/17 13:05) Chest, Single Ap (03/13/17 13:05) Urinalysis - C+S If Indicated (03/13/17 13:15) Diltiazem Inj (Cardizem Inj) (03/13/17 14:00) Ckmb (Isoenzyme) Profile (03/13/17 13:55) Troponin I (03/13/17 13:55) Diltiazem Inj (Cardizem Inj) (03/13/17 14:45) Lactic Acid Sepsis Protocol (03/13/17 14:42) Blood Culture (03/13/17 14:42) Piperacil-Tazo 4.5 Gm Premix (Zosyn 4.5 (03/13/17 14:45) Azithromycin Inj (Zithromax Inj) (03/13/17 14:45) Albuterol-Ipratropium Neb (Duoneb Neb) (03/13/17 14:45) Vascular Access Team Consult/P PRN (03/13/17 16:21) Vascular Poc Ultrasound (03/13/17 ) Sodium Chlor 0.9% 1000 Ml Inj (Ns 1000 M (03/13/17 16:30) Sodium Chlor 0.9% 1000 Ml Inj (Ns 1000 M (03/13/17 16:30) Vancomycin Inj (Vancomycin Inj) (03/13/17 16:30) Metronidazole 500 Mg Inj (Flagyl 500 Mg (03/13/17 16:30) Iohexol 350 Inj (Omnipaque 350 Inj) (03/13/17 17:15) Furosemide (Lasix) (03/14/17 09:00) Acetamin-Hydrocod 325-10 Mg ([place] 10-32 (03/13/17 18:15) Admit To Inpatient (03/13/17 ) Code Status (03/13/17 18:10) Vital Signs (Adult) Q4H (03/13/17 18:10) Activity Oob Ad Elise (03/13/17 18:10) Stave Saw Operator / Telemetry .CONTINUOUS (03/13/17 18:10) Intake + Output TED.QSHIFT (03/13/17 18:10) Notify Dr: Other (03/13/17 18:10) Sodium Chlor 0.9% 1000 Ml Inj (Ns 1000 M (03/13/17 18:10) Sodium Chloride 0.9% Flush (Ns Flush) (03/13/17 18:15) Sodium Chloride 0.9% Flush (Ns Flush) (03/13/17 21:00) Acetaminophen (Tylenol) (03/13/17 18:15) Ondansetron Inj (Zofran Inj) (03/13/17 18:15) Basic Metabolic Panel (Bmp) (03/14/17 06:00) Complete Blood Count With Diff (03/14/17 06:00) Prothrombin Time / Inr (Pt) (03/14/17 06:00) Resp Oxygen Armaan C Titrat 1-4 L (03/13/17 ) Pt Request For Service (03/13/17 18:10) Case Management Consult (03/13/17 18:10) Naloxone Inj (Narcan Inj) (03/13/17 18:15) Docusate Sodium-Senna (Minna-Colace) (03/13/17 21:00) Magnesium Hydroxide Liq (Milk Of Magnesi (03/13/17 18:15) Sennosides (Senokot) (03/13/17 18:15) Bisacodyl Supp (Dulcolax Supp) (03/13/17 18:15) Lactulose Liq (Lactulose Liq) (03/13/17 18:15) Inpatient Certification (03/13/17 ) Admit Order (Ed Use Only) (03/13/17 18:25) Labs Laboratory Tests Test 03/13/17 13:40 03/13/17 14:45 03/13/17 14:55 03/13/17 17:56 White Blood Count 6.4 TH/MM3 Red Blood Count 3.40 MIL/MM3 Hemoglobin 13.2 GM/DL Hematocrit 39.0 % Mean Corpuscular Volume 114.6 FL Mean Corpuscular Hemoglobin 38.9 PG Mean Corpuscular Hemoglobin Concent 34.0 % Red Cell Distribution Width 17.5 % Platelet Count 32 TH/MM3 Mean Platelet Volume 8.9 FL Neutrophils (%) (Auto) 90.6 % Lymphocytes (%) (Auto) 6.7 % Monocytes (%) (Auto) 1.9 % Eosinophils (%) (Auto) 0.7 % Basophils (%) (Auto) 0.1 % Neutrophils # (Auto) 5.8 TH/MM3 Lymphocytes # (Auto) 0.4 TH/MM3 Monocytes # (Auto) 0.1 TH/MM3 Eosinophils # (Auto) 0.0 TH/MM3 Basophils # (Auto) 0.0 TH/MM3 CBC Comment AUTO DIFF Differential Total Cells Counted 100 Neutrophils % (Manual) 71 % Band Neutrophils % 22 % Lymphocytes % 3 % Monocytes % 3 % Eosinophils % 1 % Neutrophils # (Manual) 6.0 TH/MM3 Differential Comment FINAL DIFF MANUAL Platelet Estimate LOW Platelet Morphology Comment NORMAL Prothrombin Time 17.7 SEC Prothromb Time International Ratio 1.6 RATIO Activated Partial Thromboplast Time 32.9 SEC Blood Urea Nitrogen 25 MG/DL Creatinine 1.31 MG/DL Random Glucose 63 MG/DL Total Protein 6.2 GM/DL Albumin 2.2 GM/DL Calcium Level 8.7 MG/DL Alkaline Phosphatase 99 U/L Aspartate Amino Transf (AST/SGOT) 59 U/L Alanine Aminotransferase (ALT/SGPT) 27 U/L Total Bilirubin 5.4 MG/DL Sodium Level 133 MEQ/L Potassium Level 4.1 MEQ/L Chloride Level 102 MEQ/L Carbon Dioxide Level 20.7 MEQ/L Anion Gap 10 MEQ/L Estimat Glomerular Filtration Rate 55 ML/MIN Total Creatine Kinase 73 U/L Troponin I 0.05 NG/ML Lipase 60 U/L Ethyl Alcohol Level LESS THAN 3 MG/DL Urine Opiates Screen NEG Urine Barbiturates Screen NEG Urine Amphetamines Screen NEG Urine Benzodiazepines Screen NEG Urine Cocaine Screen NEG Urine Cannabinoids Screen NEG Lactic Acid Level 4.2 mmol/L Urine Color LIGHT-BROWN Urine Turbidity HAZY Urine pH 5.5 Urine Specific [place] 1.030 Urine Protein 30 mg/dL Urine Glucose (UA) NEG mg/dL Urine Ketones NEG mg/dL Urine Occult Blood NEG Urine Nitrite NEG Urine Bilirubin SMALL Urine Urobilinogen 2.0 MG/DL Urine Leukocyte Esterase TRACE Urine RBC 1 /hpf Urine WBC 3 /hpf Urine Squamous Epithelial Cells 1 /hpf Urine Hyaline Casts 6 /lpf Urine Mucus FEW /lpf Microscopic Urinalysis Comment CULT NOT INDICATED Test 03/13/17 18:00 Lactic Acid Level 1.6 mmol/L MDM Supervised Visit with BERTA: Yes Narrative Course I, Dr. Correa, have reviewed the advance practice practitioner's documentation and am in agreement, met with the patient face to face, made the diagnosis, and the medical decision making was done by me. *My assessment and Findings: This is a 66-year-old male presents emergency Department with abdominal pain, does have a history of cirrhosis. After my physical exam with him he does have some peritoneal signs and is fairly tender, probably out of proportion. Differential diagnosis does include ischemic bowel disease as well as spontaneous bacterial peritonitis. However the patient's platelet count is in the 30s and I do not think he is safe for anticoagulation nor paracentesis in the emergency department. He was started on empiric antibiotics and will be admitted to the hospital. Condition: Serious Alexandr Correa MD Mar 13, 2017 16:39
[2017-03-13 17:12] LABS: LACTIC ACID GHOST NOT REPORTABLE
[2017-03-13] MEDS ORDERED: IOHEXOL 350 MG/ML 10 ML VIAL (for RAD DIAG) IVCONTRAST ONE (17:15)
--- NOTE | 2017-03-13 17:41 | RADRPT ---
EXAM DATE/TIME: 03/13/2017 17:07 [facility] COMPARISON: CT ABDOMEN & PELVIS W/O CONTRAST, February 03, 2017, 15:04. INDICATIONS : Abdominal pain ans swelling. Vomiting and diarrhea. IV CONTRAST: 96 cc Omnipaque 350 (iohexol) IV ORAL CONTRAST: No oral contrast ingested. RADIATION DOSE: 36.04 CTDIvol (mGy) MEDICAL HISTORY : Cardiovascular disease. Cerebrovascular disease. Hypertension.Afib, Diabetes. SURGICAL HISTORY : Appendectomy. CABGScheduled for heart valve replacement. ENCOUNTER: Initial ACUITY: 2 days PAIN SCALE: 7/10 LOCATION: Bilateral abdomen. TECHNIQUE: Volumetric scanning of the abdomen and pelvis was performed. Using automated exposure control and adjustment of the mA and/or kV according to patient size, radiation dose was kept as low as reasonably achievable to obtain optimal diagnostic quality images. DICOM format image data is av ailable electronically for review and comparison. FINDINGS: CT Abdomen: The liver appears cirrhotic multiple varices at the level of the gastroesophageal junctio n, recanalized paraumbilical vein. There is a large area of low attenuating defect in the spleen mike ures 7.6 cm in size most likely a large area of infarction. 2 cm simple cyst is present in the right kidney. The pancreas, left kidney, adrenals are unremarkable. There is no evidence for any appreciabl e pathological adenopathy, or bowel obstruction. There is degenerative change within the patient's s pine with wedging of multiple vertebrae chronic in nature. Large right pleural effusion is present in the right lung with consolidation and/or compressive collapse with a tiny left pleural effusion. The re is haziness involving the fat planes throughout the abdominal and pelvic wall in addition to mesen elan slight ascites. There is edema involving numerous loops of small bowel with significant bowel wa ll thickening of the hepatic flexure and ascending colon could be due to passive congestion. The appe arance is however nonspecific. CT pelvis: There is no evidence for mass, abscess formation, or any significant adenopathy within the pelvis. CONCLUSION: 1. Multiple splenic infarctions. 2. Cirrhosis and signs of portal venous hypertension not significantly changed. 3. There is passive congestion of the mesentery with edematous small and large bowel loops in additio n to anasarca worse since the prior exam. Antoine Ramires MD on March 13, 2017 at 17:31 Board Certified Radiologist. This report was verified electronically.
[2017-03-13] MEDS ORDERED: SENNOSIDES 8.6 MG TAB PO PRN (18:15)
[2017-03-13] MEDS ORDERED: BISACODYL 10 MG SUPP RECTAL PRN (18:15)
[2017-03-13] MEDS ORDERED: ACETAMINOPHEN 325 MG TAB PO PRN (18:15)
[2017-03-13] MEDS ORDERED: NALOXONE HCL 0.4 MG/ML AMP IV PRN (18:15)
[2017-03-13] MEDS ORDERED: LACTULOSE SYRUP 20 GM/30 ML CUP PO PRN (18:15)
[2017-03-13] MEDS ORDERED: ONDANSETRON HCL 4 MG/2 ML VIAL IVP PRN (18:15)
[2017-03-13] MEDS ORDERED: MAGNESIUM HYDROXIDE SUSP 30 ML CUP PO PRN (18:15)
--- NOTE | 2017-03-13 18:22 | HHI.HP ---
[facility] Phys[facility] Unknown Admission Diagnosis Diagnoses: Chief Complaint: Abdominal Pain Travel History International Travel<30 Days: No Contact w/Intl Traveler <30 Da: No Traveled to Known Affected Are: No History of Present Illness This is a pleasant 66 y/o Male who came today with Abdominal pain that started yesterday, he vomited 14 to 15 times, Patient states pain is more right now radiates throughout his abdomen. Denies any chest pain, fevers, change in bowel or bladder, or back pain. Denies anything making this better or worse. Denies any hematemesis or coffee-ground emesis. The patient has Severe Thrombocytopenia, Lactic Acidosis is chronic issue, Hepatitic C, DM II, Hypertension, CAD with history of PCI and CABG x 3, Atrial Fibrillation with RVR on Cardizem drip on this admission, Aortic Stenosis, Esophageal Varices, recently hospitalized to this facility on 02/03/17, he has history of Aortic Valve Endocarditis, Strep Viridans/T8/T9 discitis, EtOH ongoing, History of TAVR at [facility], Seen in ER the patient is deaf difficult to perform a good history. Review of Systems Constitutional: DENIES: Fever, Chills, Change in appetite Endocrine: DENIES: Heat/cold intolerance Eyes: DENIES: Blurred vision, Eye pain Except as stated in HPI: all other systems reviewed are Neg Past Family Social History Past Medical History OA Asthma Atrial Fibrillation with RVR PCI history of CAD CHF by history CVA on 2004 DM II Deaf Glaucoma Cirrhosis Hypertension Past Surgical History Paracentesis Appendectomy Valve replacement, CABG x 3 Tonsillectomy Reported Medications Reported Meds & Active Scripts Active [place] (Hydrocodone-Acetaminophen) 10-325 Mg Tab 1 Tab PO Q4H PRN Walker Rolling/GetGo (Device) 1 Mis Mis 1 Ea .ROUTE DIRECTED Reported Lasix (Furosemide) 40 Mg Tab 40 Mg PO DAILY Amlodipine (Amlodipine Besylate) 5 Mg Tab 5 Mg PO DAILY Allergies: Coded Allergies: lisinopril (Unverified Allergy, Intermediate, 03/09/17) Active Ordered Medications Current Medications Medications (Trade) Dose Ordered Sig/Blaire Route Start Time Stop Time Status Last Admin (NS Flush) 2 ml UNSCH PRN IV FLUSH 03/13/17 13:15 Diltiazem HCl 125 mg/Sodium Chloride 125 ml @ 0 mls/hr TITRATE IV 03/13/17 14:45 03/13/17 15:48 (Lasix) 40 mg DAILY PO 03/14/17 09:00 ([place] 10-325 Mg) 1 tab Q4H PRN PO 03/13/17 18:15 Sodium Chloride 1,000 ml @ 100 mls/hr Q10H IV 03/13/17 18:10 (NS Flush) 2 ml UNSCH PRN IV FLUSH 03/13/17 18:15 (NS Flush) 2 ml BID IV FLUSH 03/13/17 21:00 (Tylenol) 650 mg Q4H PRN PO 03/13/17 18:15 (Zofran Inj) 4 mg Q6H PRN IVP 03/13/17 18:15 (Narcan Inj) 0.4 mg UNSCH PRN IV 03/13/17 18:15 (Minna-Colace) 1 tab BID PO 03/13/17 21:00 (Milk Of Magnesia Liq) 30 ml Q12H PRN PO 03/13/17 18:15 (Senokot) 17.2 mg Q12H PRN PO 03/13/17 18:15 (Dulcolax Supp) 10 mg DAILY PRN RECTAL 03/13/17 18:15 (Lactulose Liq) 30 ml DAILY PRN PO 03/13/17 18:15 (Protonix Inj) 40 mg Q24H IV PUSH 03/13/17 20:00 (Atrovent Neb) 0.5 mg Q4HR NEB NEB 03/13/17 20:00 (Pulmicort Respule Neb) 0.5 mg Q12HR NEB NEB 03/13/17 20:00 (Mucinex Er) 600 mg BID PO 03/13/17 21:00 Multivitamins 10 ml/Folic Acid 1 mg/Sodium Chloride 510.2 ml @ 125 mls/hr Q24H IV 03/13/17 20:00 03/18/17 19:59 Thiamine HCl 100 mg/Sodium Chloride 101 ml @ 100 mls/hr Q24H IV 03/13/17 20:00 03/16/17 19:59 (Vitamin B1) 100 mg DAILY PO 03/17/17 09:00 (Romazicon Inj) 0.2 mg Q1M PRN IV PUSH 03/13/17 18:45 (Ativan Inj) 1 mg Q4H PRN IV PUSH 03/13/17 18:45 (Ativan Inj) 2 mg Q2H PRN IV PUSH 03/13/17 18:45 (NovoLIN R SUPPLEMENTAL SCALE) 1 ACHS SLIDING SCALE SQ 03/13/17 21:00 (Albumin 25% Inj) 25 gm Q12H IV 03/13/17 19:00 UNV Family History Positive for EtOH with father. No history of coronary artery disease. Social History History of Drug and alcohol abuse Physical Exam Vital Signs Vital Signs Date Time Temp Pulse Resp B/P (MAP) Pulse Ox O2 Delivery O2 Flow Rate FiO2 03/13/17 17:46 93 99/55 (70) 03/13/17 17:18 95 20 105/52 (69) 99 Room Air 03/13/17 16:48 91 24 130/58 (82) 96 Room Air 03/13/17 16:18 138 22 93/60 (71) 97 Room Air 03/13/17 16:17 138 03/13/17 13:10 94 Room Air 03/13/17 12:53 98.7 92 24 130/75 (93) 93 Physical Exam GENERAL: Obese patient in no apparent distress. SKIN: Focused skin assessment warm and dry. ecchymosis on both arms and legs. HEAD: Atraumatic. Normocephalic. EYES: Pupils equal and round. EOMI. No scleral icterus. No injection or drainage. ENT: No nasal bleeding or discharge.deaf NECK: Trachea midline. Supple. No nuclear rigidity. CARDIOVASCULAR: Irregular rate and rhythm tachycardia, no murmurs. RESPIRATORY: Decreased breath sounds bilateral, no wheezing or crackles. GASTROINTESTINAL: Abdomen soft, distended and tender on palpation. MUSCULOSKELETAL: anasarca, NEUROLOGICAL: Awake and alert. Motor grossly within normal limits. Normal speech. PSYCHIATRIC: Appropriate mood and affect; insight and judgment normal. Laboratory Laboratory Tests Test 03/13/17 13:40 03/13/17 14:55 White Blood Count 6.4 Red Blood Count 3.40 Hemoglobin 13.2 Hematocrit 39.0 Mean Corpuscular Volume 114.6 Mean Corpuscular Hemoglobin 38.9 Mean Corpuscular Hemoglobin Concent 34.0 Red Cell Distribution Width 17.5 Platelet Count 32 Mean Platelet Volume 8.9 Neutrophils (%) (Auto) 90.6 Lymphocytes (%) (Auto) 6.7 Monocytes (%) (Auto) 1.9 Eosinophils (%) (Auto) 0.7 Basophils (%) (Auto) 0.1 Neutrophils # (Auto) 5.8 Lymphocytes # (Auto) 0.4 Monocytes # (Auto) 0.1 Eosinophils # (Auto) 0.0 Basophils # (Auto) 0.0 CBC Comment AUTO DIFF Differential Total Cells Counted 100 Neutrophils % (Manual) 71 Band Neutrophils % 22 Lymphocytes % 3 Monocytes % 3 Eosinophils % 1 Neutrophils # (Manual) 6.0 Differential Comment FINAL DIFF MANUAL Platelet Estimate LOW Platelet Morphology Comment NORMAL Prothrombin Time 17.7 Prothromb Time International Ratio 1.6 Activated Partial Thromboplast Time 32.9 Blood Urea Nitrogen 25 Creatinine 1.31 Random Glucose 63 Total Protein 6.2 Albumin 2.2 Calcium Level 8.7 Alkaline Phosphatase 99 Aspartate Amino Transf (AST/SGOT) 59 Alanine Aminotransferase (ALT/SGPT) 27 Total Bilirubin 5.4 Sodium Level 133 Potassium Level 4.1 Chloride Level 102 Carbon Dioxide Level 20.7 Anion Gap 10 Estimat Glomerular Filtration Rate 55 Total Creatine Kinase 73 Troponin I 0.05 Lipase 60 Lactic Acid Level 4.2 Date/Time Source Procedure Growth Status 03/13/17 14:50 Blood Peripheral Aerobic Blood Culture Pending Received 03/13/17 14:50 Blood Peripheral Anaerobic Blood Culture Pending Received Result Diagram: 03/13/17 1340 03/13/17 1340 Imaging CXR 1. Right basilar consolidation 2. Suspected right pleural effusion CT the abdomen and pelvis read by the radiologist shows: 1. Multiple splenic infarctions. 2. Cirrhosis and signs of portal venous hypertension not significantly changed. 3. There is passive congestion of the mesentery with edematous small and large bowel loops in addition to anasarca worse since the prior exam. Caprini VTE Risk Assessment Caprini VTE Risk Assessment: Mod/High Risk (score >= 2) Caprini Risk Assessment Model Point Value = 1 Point Value = 2 Point Value = 3 Point Value = 5 Age 41-60 Minor surgery BMI > 25 kg/m2 Swollen legs Varicose veins or History of unexplained or recurrent spontaneous Oral contraceptives or hormone replacement Sepsis (< 1 month) Serious lung disease, including pneumonia (< 1 month) Abnormal pulmonary function Acute myocardial infarction Congestive heart failure (< 1 month) History of inflammatory bowel disease Medical patient at bed rest Age 61-74 Arthroscopic surgery Major open surgery (> 45 min) Laparoscopic surgery (> 45 min) Malignancy Confined to bed (> 72 hours) Immobilizing plaster cast Central venous access Age >= 75 History of VTE Family history of VTE Factor V Leiden Prothrombin [id number] Lupus anticoagulant Anticardiolipin antibodies Elevated serum homocysteine Heparin-induced thrombocytopenia Other congenital or acquired thrombophilia Stroke (< 1 month) Elective arthroplasty Hip, pelvis, or leg fracture Acute spinal cord injury (< 1 month) Prophylaxis Regimen Total Risk Factor Score Risk Level Prophylaxis Regimen 0-1 Low Early ambulation 2 Moderate Order ONE of the following: *Sequential Compression Device (SCD) *Heparin 5000 units SQ BID 3-4 Higher Order ONE of the following medications: *Heparin 5000 units SQ TID *Enoxaparin/Lovenox 40 mg SQ daily (WT < 150 kg, CrCl > 30 mL/min) *Enoxaparin/Lovenox 30 mg SQ daily (WT < 150 kg, CrCl > 10-29 mL/min) *Enoxaparin/Lovenox 30 mg SQ BID (WT < 150 kg, CrCl > 30 mL/min) AND/OR *Sequential Compression Device (SCD) 5 or more Highest Order ONE of the following medications: *Heparin 5000 units SQ TID (Preferred with Epidurals) *Enoxaparin/Lovenox 40 mg SQ daily (WT < 150 kg, CrCl > 30 mL/min) *Enoxaparin/Lovenox 30 mg SQ daily (WT < 150 kg, CrCl > 10-29 mL/min) *Enoxaparin/Lovenox 30 mg SQ BID (WT < 150 kg, CrCl > 30 mL/min) AND *Sequential Compression Device (SCD) Assessment and Plan Assessment and Plan 1. Sepsis/Pneumonia in a patient recently hospitalized and discharged from this facility, new CXR showing Right basilar consolidation to continue Bronchodilator, Mucolytic, Incentive spirometry, Suspected right pleural effusion, CT abdomen and Pelvis with Multiple splenic infarctions, Cirrhosis and signs of portal venous hypertension, passive congestion fo the mesentery with edematous small and large bowel loops, in addition to anasarca worse since the prior admission. Blood cultures, Urine culture, Sputum culture, Legionella antigen, Pneumococcal antigen. Vancomycin and Zosyn started due to Health Care Associated Pneumonia. 2. EtOH Thiamine, Folate Multivitamins, CIWA protocol 3. CAD Atrial Fibrillation with RVR to continue Cardizem drip and switch Amlodipine to beta blockers as tolerated JUANITA 01/08 revealed EF 60-65%, Moderate aVR 4. Hypertension at this time hypotensive on hold Amlodipine 5. Chronic Right Rib fractures 6. 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 7. DM II Sliding-scale insulin with Accu-Cheks to maintain euglycemia/low regimen 8. Severe Thrombocytopenia secondary to underlying liver disease 9. 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 Prophylaxis - GI - Protonix - DVT - SCD/pharmacological prophylaxis contraindicated secondary to thrombocytopenia/underlying coagulopathy Code Status Full code Discussed Condition With patient and ER PA. Code Status Full Code. Discussed Condition With PA and patient Physician Certification 2 Midnight Certification Type: Admission for Inpatient Services Order for Inpatient Services The services are ordered in accordance with Medicare regulations or non- Medicare payer requirements, as applicable. In the case of services not specified as inpatient-only, they are appropriately provided as inpatient services in accordance with the 2-midnight benchmark. Estimated LOS (days): 3 days is the estimated time the patient will need to remain in the hospital, assuming treatment plan goals are met and no additional complications. Post-Hospital Plan: Not yet determined Trae Crain MD Mar 13, 2017 18:22
[2017-03-13 18:26] LABS: BLOOD, URINE NEG (NEG); GLUCOSE,URINE NEG (NEG); HYALINE CAST, URINE 6 /lpf (RARE); KETONE, URINE NEG (NEG); MUCUS URINE FEW /lpf (OCC); NITRITE,URINE NEG (NEG); PH, URINE 5.5 (5.0-8.5); SQUAMOUS EPITHELIAL CELL URINE 1 /hpf (0-5); URINE COLOR LIGHT-BROWN (YELLW/STRAW)
[2017-03-13 18:29] LABS: COMMENT (UR) CULT NOT INDICATED; CULTURE IF INDICATED CULT NOT INDICATED
[2017-03-13] MEDS ORDERED: FLUMAZENIL 0.5 MG/5 ML VIAL IV PUSH PRN (18:45)
[2017-03-13] MEDS ORDERED: LORazepam 2 MG/ML VIAL IV PUSH PRN ×2 (18:45)
[2017-03-13] MEDS ORDERED: Vancomycin Consult Pharmacy 1 EA OTHER SCH (19:00)
[2017-03-13] MEDS ORDERED: VANCOMYCIN INJ 1,500 MG in SODIUM CHLORID 0.9% 500 ML INJ 500 ML IV ONE (19:00)
[2017-03-13] MEDS: RESP: IPRATROPIUM 0.5 MG/2.5 ML NEB NEB SCH ×2 (19:32→23:39)
[2017-03-13] MEDS: RESP: BUDESONIDE 0.5 MG/2 ML NEB NEB SCH (19:32)
[2017-03-13] MEDS: SODIUM CHLOR 0.9% 1000 ML INJ 1,000 ML IV SCH (19:53)
[2017-03-13] MEDS: ALBUMIN HUMAN 25% 25 GM/100 ML BAGP IV SCH (20:30)
[2017-03-13] MEDS: SODIUM CHLORIDE 0.9% FLUSH 10 ML FLUSH IV FLUSH SCH (21:00)
--- NOTE | 2017-03-13 21:47 | EKG ---
Date Performed: 03/13/2017 Time Performed: 13:47:50 PTAGE: 66 years EKG: ATRIAL FIBRILLATION WITH RAPID VENTRICULAR RESPONSE POSSIBLE ANTERIOR MYOCARDIAL INFARCTION ABNORMAL ECG PREVIOUS TRACING : 02/03/2017 18.12 No significant change from previous tracing noted. DOCTOR: Arturo Jung Interpretating Date/Time 03/13/2017 21:44:48
[2017-03-13] MEDS: MULTIVITAMIN INJ 10 ML, FOLIC ACID INJ 1 MG in SODIUM CHLORID 0.9% 500 ML INJ 500 ML IV SCH (22:15)
[2017-03-13] MEDS: THIAMINE INJ 100 MG in SODIUM CHLORIDE 0.9% INJ 100 ML IV SCH (22:15)
[2017-03-14] VITALS (10 sets, daily range): BP systolic 103–118; BP diastolic 56–67; PULSE 75–107; RESP 18–20; TEMP 97.4–98.2; O2SAT 93–98
[2017-03-14] MEDS: DILTIAZEM INJ 125 MG in SODIUM CHLORIDE 0.9% INJ 100 ML IV SCH ×3 (02:23→22:50)
[2017-03-14] MEDS: RESP: IPRATROPIUM 0.5 MG/2.5 ML NEB NEB SCH ×5 (04:15→19:50)
[2017-03-14] MEDS: PIPERACIL-TAZO 3.375 GM PREMIX 50 ML IV SCH ×4 (04:43→22:52)
[2017-03-14] MEDS: ACETAMINOPHEN/HYDROcodone 325 MG/10 MG TAB PO PRN ×4 (04:43→21:23)
[2017-03-14] MEDS: VANCOMYCIN INJ 1,200 MG in SODIUM CHLOR 0.9% 250 ML INJ 250 ML IV SCH ×2 (04:43→16:38)
[2017-03-14] MEDS: SODIUM CHLOR 0.9% 1000 ML INJ 1,000 ML IV SCH (05:03)
[2017-03-14] MEDS: INSULIN NovoLIN REGULAR SUPPLEMENTAL SCALE SQ SCH ×4 (06:04→21:00)
[2017-03-14] MEDS: RESP: BUDESONIDE 0.5 MG/2 ML NEB NEB SCH ×2 (08:06→19:50)
[2017-03-14 08:39] LABS: PROTHROMBIN TIME - PATIENT 22.6 SEC (9.8-11.6)
[2017-03-14] MEDS: guaiFENesin E.R. 600 MG TAB PO SCH ×2 (08:51→21:23)
[2017-03-14] MEDS: ALBUMIN HUMAN 25% 25 GM/100 ML BAGP IV SCH ×2 (08:51→21:22)
[2017-03-14] MEDS: DOCUSATE SODIUM 50 MG/SENNA 8.6 MG TAB PO SCH ×2 (08:51→21:00)
[2017-03-14] MEDS: SODIUM CHLORIDE 0.9% FLUSH 10 ML FLUSH IV FLUSH SCH ×2 (08:51→21:00)
[2017-03-14] MEDS: FUROSEMIDE 40 MG TAB PO SCH (08:51)
[2017-03-14 08:52] LABS: BICARBONATE 18.8 MEQ/L (21.0-32.0); MAGNESIUM 1.9 MG/DL (1.5-2.5); POTASSIUM 3.9 MEQ/L (3.5-5.1)
[2017-03-14 09:20] LABS: MEAN CELL VOLUME 117.7 FL (80.0-100.0); MEAN CORPUSCULAR HEMOGLOBIN 38.7 PG (27.0-34.0); MEAN CORPUSCULAR HGB CONC 32.9 % (32.0-36.0); PLATELET COUNT 31 TH/MM3 (150-450); RED BLOOD COUNT 2.81 MIL/MM3 (4.50-5.90); RED CELL DISTRIBUTION WIDTH 17.9 % (11.6-17.2); WHITE BLOOD COUNT 8.9 TH/MM3 (4.0-11.0)
[2017-03-14 09:28] LABS: HEMO FLAGS AUTO DIFF
[2017-03-14 10:33] LABS: BANDS 36 % (0-6); METAMYELOCYTES 1 % (0-1); NEUTROPHIL # MANUAL DIFF 8.5 TH/MM3 (1.8-7.7); POLYS (SEG NEUTROPHILS) 59 % (16-70); WBC DIFF SAMPLE 100
[2017-03-14 10:34] LABS: PLATELET ESTIMATE SMEAR LOW (NORMAL); PLATELET MORPHOLOGY NORMAL (NORMAL); SCAN/DIFF FINAL DIFF MANUAL
--- NOTE | 2017-03-14 11:24 | HHI.PR ---
Subjective Remarks This is a pleasant 66 y/o Male who came today with Abdominal pain that started yesterday, he vomited 14 to 15 times, Patient states pain is more right now radiates throughout his abdomen. Denies any chest pain, fevers, change in bowel or bladder, or back pain. Denies anything making this better or worse. Denies any hematemesis or coffee-ground emesis. The patient has Severe Thrombocytopenia, Lactic Acidosis is chronic issue, Hepatitic C, DM II, Hypertension, CAD with history of PCI and CABG x 3, Atrial Fibrillation with RVR on Cardizem drip on this admission, Aortic Stenosis, Esophageal Varices, recently hospitalized to this facility on 02/03/17, he has history of Aortic Valve Endocarditis, Strep Viridans/T8/T9 discitis, EtOH ongoing, History of T[facility]R at [facility], Seen in ER the patient is deaf difficult to perform a good history. 03/14: today seen in his bedroom, industrial engineering technician present facilitate communication with the patient he continue with Low back pain, I think his pain is more related to lumbar pain, [facility] CT abdomen and Pelvis did not found major abdominal or Pelvic pathology. he states he has lower extremity edema for the last 20 years, improving condition today sitting in chair. Objective Vital Signs Date Time Temp Pulse Resp B/P (MAP) Pulse Ox O2 Delivery O2 Flow Rate FiO2 03/14/17 09:02 98 03/14/17 09:02 Room Air 03/14/17 08:07 94 21 03/14/17 08:00 97.8 104 19 108/62 (77) 95 03/14/17 04:00 98.0 107 20 103/59 (74) 96 03/14/17 00:30 03/14/17 00:00 97.7 94 20 118/56 (76) 98 03/14/17 00:00 Room Air 03/13/17 22:43 106 18 99/63 (75) 96 Room Air 03/13/17 20:53 84 18 91/58 (69) 97 Room Air 03/13/17 19:30 96 03/13/17 19:26 22 03/13/17 19:25 93 22 105/64 (78) 97 Room Air 03/13/17 18:39 98 93/54 (67) 03/13/17 18:15 90 20 95/57 (70) 94 Room Air 03/13/17 17:46 93 99/55 (70) 03/13/17 17:18 95 20 105/52 (69) 99 Room Air 03/13/17 16:48 91 24 130/58 (82) 96 Room Air 03/13/17 16:18 138 22 93/60 (71) 97 Room Air 03/13/17 16:17 138 03/13/17 13:10 94 Room Air 03/13/17 12:53 98.7 92 24 130/75 (93) 93 I/O 03/13/17 03/13/17 03/13/17 03/14/17 03/14/17 03/14/17 07:00 15:00 23:00 07:00 15:00 23:00 Intake Total 1000 ml 0 ml Output Total 150 ml Balance 1000 ml -150 ml Intake Oral 0 ml IV Total 1000 ml Output Urine Total 150 ml Result Diagram: 03/14/17 0644 03/14/17 0644 Imaging CXR 1. Right basilar consolidation 2. Suspected right pleural effusion CT the abdomen and pelvis read by the radiologist shows: 1. Multiple splenic infarctions. 2. Cirrhosis and signs of portal venous hypertension not significantly changed. 3. There is passive congestion of the mesentery with edematous small and large bowel loops in addition to anasarca worse since the prior exam. Procedures None Other Results Laboratory Tests Test 03/13/17 13:40 03/13/17 14:45 03/13/17 17:56 03/13/17 18:00 Neutrophils (%) (Auto) 90.6 % Lymphocytes (%) (Auto) 6.7 % Monocytes (%) (Auto) 1.9 % Eosinophils (%) (Auto) 0.7 % Basophils (%) (Auto) 0.1 % Neutrophils # (Auto) 5.8 TH/MM3 Lymphocytes # (Auto) 0.4 TH/MM3 Monocytes # (Auto) 0.1 TH/MM3 Eosinophils # (Auto) 0.0 TH/MM3 Basophils # (Auto) 0.0 TH/MM3 Eosinophils % 1 % Activated Partial Thromboplast Time 32.9 SEC Blood Urea Nitrogen 25 MG/DL Creatinine 1.31 MG/DL Random Glucose 63 MG/DL Total Protein 6.2 GM/DL Albumin 2.2 GM/DL Calcium Level 8.7 MG/DL Alkaline Phosphatase 99 U/L Aspartate Amino Transf (AST/SGOT) 59 U/L Alanine Aminotransferase (ALT/SGPT) 27 U/L Total Bilirubin 5.4 MG/DL Sodium Level 133 MEQ/L Potassium Level 4.1 MEQ/L Chloride Level 102 MEQ/L Carbon Dioxide Level 20.7 MEQ/L Total Creatine Kinase 73 U/L Troponin I 0.05 NG/ML Lipase 60 U/L Ethyl Alcohol Level LESS THAN 3 MG/DL Urine Opiates Screen NEG Urine Barbiturates Screen NEG Urine Amphetamines Screen NEG Urine Benzodiazepines Screen NEG Urine Cocaine Screen NEG Urine Cannabinoids Screen NEG Urine Color LIGHT-BROWN Urine Turbidity HAZY Urine pH 5.5 Urine Specific Terral 1.030 Urine Protein 30 mg/dL Urine Glucose (UA) NEG mg/dL Urine Ketones NEG mg/dL Urine Occult Blood NEG Urine Nitrite NEG Urine Bilirubin SMALL Urine Urobilinogen 2.0 MG/DL Urine Leukocyte Esterase TRACE Urine RBC 1 /hpf Urine WBC 3 /hpf Urine Squamous Epithelial Cells 1 /hpf Urine Hyaline Casts 6 /lpf Urine Mucus FEW /lpf Microscopic Urinalysis Comment CULT NOT INDICATED Lactic Acid Level 1.6 mmol/L Test 03/14/17 06:44 White Blood Count 8.9 TH/MM3 Red Blood Count 2.81 MIL/MM3 Hemoglobin 10.9 GM/DL Hematocrit 33.0 % Mean Corpuscular Volume 117.7 FL Mean Corpuscular Hemoglobin 38.7 PG Mean Corpuscular Hemoglobin Concent 32.9 % Red Cell Distribution Width 17.9 % Platelet Count 31 TH/MM3 Mean Platelet Volume 9.4 FL CBC Comment AUTO DIFF Differential Total Cells Counted 100 Neutrophils % (Manual) 59 % Band Neutrophils % 36 % Lymphocytes % 2 % Monocytes % 2 % Neutrophils # (Manual) 8.5 TH/MM3 Metamyelocytes 1 % Differential Comment FINAL DIFF MANUAL Platelet Estimate LOW Platelet Morphology Comment NORMAL Prothrombin Time 22.6 SEC Prothromb Time International Ratio 2.0 RATIO Blood Urea Nitrogen 27 MG/DL Creatinine 1.17 MG/DL Random Glucose 82 MG/DL Calcium Level 8.0 MG/DL Magnesium Level 1.9 MG/DL Sodium Level 134 MEQ/L Potassium Level 3.9 MEQ/L Chloride Level 104 MEQ/L Carbon Dioxide Level 18.8 MEQ/L Anion Gap 11 MEQ/L Estimat Glomerular Filtration Rate 63 ML/MIN Objective Remarks GENERAL: Obese patient in no apparent distress. SKIN: Focused skin assessment warm and dry. ecchymosis on both arms and legs. HEAD: Atraumatic. Normocephalic. EYES: Pupils equal and round. EOMI. No scleral icterus. No injection or drainage. ENT: No nasal bleeding or discharge.deaf NECK: Trachea midline. Supple. No nuclear rigidity. CARDIOVASCULAR: Irregular rate and rhythm tachycardia, no murmurs. RESPIRATORY: Decreased breath sounds bilateral, no wheezing or crackles. GASTROINTESTINAL: Abdomen soft, distended and tender on palpation. MUSCULOSKELETAL: anasarca, NEUROLOGICAL: Awake and alert. Motor grossly within normal limits. Normal speech. PSYCHIATRIC: Appropriate mood and affect; insight and judgment normal. Medications and IVs Current Medications Medications (Trade) Dose Ordered Sig/Blaire Route Start Time Stop Time Status Last Admin Diltiazem HCl 125 mg/Sodium Chloride 125 ml @ 0 mls/hr TITRATE IV 03/13/17 14:45 03/14/17 02:23 (Lasix) 40 mg DAILY PO 03/14/17 09:00 03/14/17 08:51 ([place] 10-325 Mg) 1 tab Q4H PRN PO 03/13/17 18:15 03/14/17 09:00 Sodium Chloride 1,000 ml @ 100 mls/hr Q10H IV 03/13/17 18:10 03/14/17 05:03 (NS Flush) 2 ml UNSCH PRN IV FLUSH 03/13/17 18:15 (NS Flush) 2 ml BID IV FLUSH 03/13/17 21:00 03/14/17 08:51 (Tylenol) 650 mg Q4H PRN PO 03/13/17 18:15 (Zofran Inj) 4 mg Q6H PRN IVP 03/13/17 18:15 (Narcan Inj) 0.4 mg UNSCH PRN IV 03/13/17 18:15 (Minna-Colace) 1 tab BID PO 03/13/17 21:00 03/14/17 08:51 (Milk Of Magnesia Liq) 30 ml Q12H PRN PO 03/13/17 18:15 (Senokot) 17.2 mg Q12H PRN PO 03/13/17 18:15 (Dulcolax Supp) 10 mg DAILY PRN RECTAL 03/13/17 18:15 (Lactulose Liq) 30 ml DAILY PRN PO 03/13/17 18:15 (Protonix Inj) 40 mg Q24H IV PUSH 03/13/17 20:00 (Atrovent Neb) 0.5 mg Q4HR NEB NEB 03/13/17 20:00 03/14/17 11:00 (Pulmicort Respule Neb) 0.5 mg Q12HR NEB NEB 03/13/17 20:00 03/14/17 08:06 (Mucinex Er) 600 mg BID PO 03/13/17 21:00 03/14/17 08:51 Multivitamins 10 ml/Folic Acid 1 mg/Sodium Chloride 510.2 ml @ 125 mls/hr Q24H IV 03/13/17 20:00 03/18/17 19:59 03/13/17 22:15 Thiamine HCl 100 mg/Sodium Chloride 101 ml @ 100 mls/hr Q24H IV 03/13/17 20:00 03/16/17 19:59 03/13/17 22:15 (Vitamin B1) 100 mg DAILY PO 03/17/17 09:00 (Romazicon Inj) 0.2 mg Q1M PRN IV PUSH 03/13/17 18:45 (Ativan Inj) 1 mg Q4H PRN IV PUSH 03/13/17 18:45 (Ativan Inj) 2 mg Q2H PRN IV PUSH 03/13/17 18:45 (NovoLIN R SUPPLEMENTAL SCALE) 1 ACHS SLIDING SCALE SQ 03/13/17 21:00 (Albumin 25% Inj) 25 gm Q12H IV 03/13/17 20:00 03/14/17 08:51 Pharmacy Profile Note 0 ml @ 0 mls/hr UNSCH OTHER 03/13/17 19:00 Piperacillin Sod/ Tazobactam Sod 50 ml @ 100 mls/hr Q6H IV 03/13/17 23:00 03/14/17 04:43 Vancomycin HCl 1200 mg/Sodium Chloride 262 ml @ 250 mls/hr Q12H IV 03/14/17 03:00 03/14/17 04:43 Miscellaneous Information SPECIFIC LAB TO BE ... ONCE ONCE .XX 03/15/17 14:45 03/15/17 14:46 A/P Assessment and Plan 1. Sepsis/Pneumonia in a patient recently hospitalized and discharged from this facility, new CXR showing Right basilar consolidation to continue Bronchodilator, Mucolytic, Incentive spirometry, Suspected right pleural effusion, CT abdomen and Pelvis with Multiple splenic infarctions, Cirrhosis and signs of portal venous hypertension, passive congestion fo the mesentery with edematous small and large bowel loops, in addition to anasarca worse since the prior admission. Blood cultures negative, Negative Legionella antigen, Negative Pneumococcal antigen. continue Vancomycin and Zosyn started due to Health Care Associated Pneumonia. improving condition today. 2. EtOH Thiamine, Folate Multivitamins, CIWA protocol, strongly recommended to stop drinking alcohol. 3. CAD Atrial Fibrillation with RVR to continue Cardizem drip and switch Amlodipine to beta blockers as tolerated JUANITA 01/08 revealed EF 60-65%, Moderate aVR 4. Hypertension stable on hold Amlodipine. 5. Chronic Right Rib fractures 6. 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 INR 2. 7. DM II Sliding-scale insulin with Accu-Cheks to maintain euglycemia/low regimen, controlled. 8. Severe Thrombocytopenia secondary to underlying liver disease today decreased to 31 from 32 yesterday. 9. History of Strep Viridans Endocarditis, history of T8/T9 Discitis Discussed in the room with Nurse and Physical Therapy, also Dynamics Ax Solution Architect, all questions answered to the best of my abilities. Prophylaxis - GI - Protonix - DVT - SCD/pharmacological prophylaxis contraindicated secondary to thrombocytopenia/underlying coagulopathy Code Status Full code Continue present care, CXR in am tomorrow. Trae Crain MD Mar 14, 2017 11:24
[2017-03-14] MEDS: PANTOPRAZOLE SODIUM 40 MG VIAL IV PUSH SCH ×2 (20:00→21:22)
[2017-03-14] MEDS: METOPROLOL TARTRATE 25 MG TAB PO SCH (21:00)
[2017-03-14] MEDS: MULTIVITAMIN INJ 10 ML, FOLIC ACID INJ 1 MG in SODIUM CHLORID 0.9% 500 ML INJ 500 ML IV SCH (21:22)
[2017-03-14] MEDS: THIAMINE INJ 100 MG in SODIUM CHLORIDE 0.9% INJ 100 ML IV SCH (21:22)
[2017-03-15] VITALS (12 sets, daily range): BP systolic 100–120; BP diastolic 59–70; PULSE 57–83; RESP 18; TEMP 97.1–98.1; O2SAT 94–97
[2017-03-15] MEDS: RESP: IPRATROPIUM 0.5 MG/2.5 ML NEB NEB SCH ×6 (00:30→23:54)
[2017-03-15] MEDS: VANCOMYCIN INJ 1,200 MG in SODIUM CHLOR 0.9% 250 ML INJ 250 ML IV SCH ×2 (03:34→17:00)
[2017-03-15] MEDS: ACETAMINOPHEN/HYDROcodone 325 MG/10 MG TAB PO PRN ×3 (04:39→21:56)
[2017-03-15] MEDS: PIPERACIL-TAZO 3.375 GM PREMIX 50 ML IV SCH ×4 (04:41→21:56)
[2017-03-15] MEDS: INSULIN NovoLIN REGULAR SUPPLEMENTAL SCALE SQ SCH ×4 (05:21→19:59)
[2017-03-15] MEDS: DILTIAZEM HCL 30 MG TAB PO SCH ×3 (05:22→18:42)
--- NOTE | 2017-03-15 09:19 | RADRPT ---
EXAM DATE/TIME: 03/15/2017 08:52 [facility] COMPARISON: No previous studies available for comparison. INDICATIONS : Short of breath, evaluate pneumonia MEDICAL HISTORY : Hypertension. Diabetes mellitus type II. Congestive heart failure. WI, asthma SURGICAL HISTORY : None. ENCOUNTER: Subsequent ACUITY: 4 - 6 days PAIN SCORE: 0/10 LOCATION: Bilateral chest FINDINGS: PA and lateral views of the chest show mild cardiomegaly. A stent mounted prosthetic aortic valve. Pu lmonary vascular engorgement noted. A moderate right and tiny left pleural effusion. The right lower lobe infiltrate. Bony structures are unremarkable. CONCLUSION: 1. Cardiomegaly with pulmonary vascular engorgement. 2. Bilateral pleural effusions, right larger than left, with right lower lobe infiltrate. Todd Cortes Jr., MD on March 15, 2017 at 9:04 Board Certified Radiologist. This report was verified electronically.
[2017-03-15] MEDS: METOPROLOL TARTRATE 25 MG TAB PO SCH ×2 (10:00→19:58)
[2017-03-15] MEDS: ALBUMIN HUMAN 25% 25 GM/100 ML BAGP IV SCH ×2 (10:00→19:56)
[2017-03-15] MEDS: FUROSEMIDE 40 MG TAB PO SCH (10:00)
[2017-03-15] MEDS: guaiFENesin E.R. 600 MG TAB PO SCH ×2 (10:01→19:59)
[2017-03-15] MEDS: SODIUM CHLORIDE 0.9% FLUSH 10 ML FLUSH IV FLUSH SCH ×2 (10:01→19:57)
[2017-03-15] MEDS: DOCUSATE SODIUM 50 MG/SENNA 8.6 MG TAB PO SCH ×2 (10:01→19:59)
--- NOTE | 2017-03-15 11:46 | HHI.PR ---
Subjective Remarks in no acute distress. has on and off pain to the groins. no fever. Objective Vitals Vital Signs Date Time Temp Pulse Resp B/P (MAP) Pulse Ox O2 Delivery O2 Flow Rate FiO2 03/15/17 11:15 97 03/15/17 04:00 Room Air 03/15/17 04:00 97.4 75 18 103/70 (81) 95 03/15/17 04:00 57 03/15/17 03:38 65 03/15/17 00:10 73 03/15/17 00:00 98.1 83 18 105/61 (76) 94 03/14/17 23:42 Room Air 03/14/17 20:28 75 03/14/17 20:09 75 03/14/17 20:00 98.2 90 18 103/63 (76) 94 03/14/17 20:00 Room Air 03/14/17 16:00 97.4 91 19 107/67 (80) 97 03/14/17 12:00 98.1 90 19 105/65 (78) 93 I/O 03/14/17 03/14/17 03/14/17 03/15/17 03/15/17 03/15/17 07:00 15:00 23:00 07:00 15:00 23:00 Intake Total 0 ml 2562 ml 2522.2 ml Output Total 150 ml 550 ml 700 ml Balance -150 ml 2012 ml 1822.2 ml Intake Oral 0 ml 960 ml 240 ml IV Total 1602 ml 2082.2 ml Albumin 200 ml Output Urine Total 150 ml 550 ml 700 ml # Bowel Movements 0 Result Diagram: 03/14/17 0644 03/14/17 0644 Imaging Last Impressions Chest X-Ray 03/13/17 1305 Signed Impressions: Service Date/Time: Monday, March 13, 2017 13:32 - CONCLUSION: 1. Right basilar consolidation. 2. Suspected right pleural effusion. Iain Villa MD Abdomen/Pelvis CT 03/13/17 1303 Signed Impressions: Service Date/Time: Monday, March 13, 2017 17:07 - CONCLUSION: 1. Multiple splenic infarctions. 2. Cirrhosis and signs of portal venous hypertension not significantly changed. 3. There is passive congestion of the mesentery with edematous small and large bowel loops in addition to anasarca worse since the prior exam. Antoine Ramires MD Objective Remarks GENERAL: This is a well-nourished, well-developed patient, in no apparent distress. CARDIOVASCULAR: Regular rate and regular rhythm without murmurs, gallops, or rubs. RESPIRATORY: Clear to auscultation. Breath sounds equal bilaterally. No wheezes , rales, or rhonchi. GASTROINTESTINAL: Abdomen soft, non-tender, nondistended. Normal, active bowel sounds MUSCULOSKELETAL: Extremities with bilateral pedal edema. NEURO: Alert & Oriented x4 to person, place, time, situation. Moves all ext x4 Medications and IVs Current Medications Morphine Sulfate (Morphine Inj) 2 mg ONCE ONCE IV PUSH Last administered on 13:39; Start 03/13/17 at 13:15; Stop 03/13/17 at 13:16; Status DC Ondansetron HCl (Zofran Inj) 4 mg ONCE ONCE IVP Last administered on 13:38; Start 03/13/17 at 13:15; Stop 03/13/17 at 13:16; Status DC Sodium Chloride 1,000 ml @ 1,000 mls/hr Q1H IV Last administered on 03/13/17 13:38; Start 03/13/17 at 13:05; Stop 03/13/17 at 14:04; Status DC Sodium Chloride (NS Flush) 2 ml UNSCH PRN IV FLUSH FLUSH AFTER USING IV ACCESS ; Start 03/13/17 at 13:15; Stop 03/13/17 at 19:22; Status DC Diltiazem HCl (Cardizem Inj) 20 mg ONCE ONCE IV Last administered on 14:02; Start 03/13/17 at 14:00; Stop 03/13/17 at 14:01; Status DC Diltiazem HCl 125 mg/Sodium Chloride 125 ml @ 0 mls/hr TITRATE IV Last administered on 03/14/17 22:50; Start 03/13/17 at 14:45; Stop 03/15/17 at 04:35 ; Status DC Piperacillin Sod/ Tazobactam Sod 100 ml @ 200 mls/hr ONCE ONCE IV Last administered on 03/13/17 17:13; Start 03/13/17 at 14:45; Stop 03/13/17 at 15:14 ; Status DC Azithromycin 500 mg/Sodium Chloride 250 ml @ 250 mls/hr ONCE ONCE IV Last administered on 03/13/17 17:56; Start 03/13/17 at 14:45; Stop 03/13/17 at 15:44 ; Status DC Albuterol/ Ipratropium (Duoneb Neb) 1 ampule ONCE ONCE INH Last administered on 03/13/17 14:49; Start 03/13/17 at 14:45; Stop 03/13/17 at 14:46; Status DC Sodium Chloride 1,000 ml @ 999 mls/hr BOLUS ONCE IV Last administered on 03/13 19:53; Start 03/13/17 at 16:30; Stop 03/13/17 at 17:30; Status DC Sodium Chloride 1,000 ml @ 999 mls/hr BOLUS ONCE IV ; Start 03/13/17 at 16:30 ; Stop 03/13/17 at 16:40; Status DC Vancomycin HCl 1000 mg/Sodium Chloride 250 ml @ 250 mls/hr ONCE ONCE IV Last administered on 03/13/17 17:25; Start 03/13/17 at 16:30; Stop 03/13/17 at 17:30 ; Status DC Metronidazole 100 ml @ 100 mls/hr ONCE ONCE IV Last administered on 19:15; Start 03/13/17 at 16:30; Stop 03/13/17 at 17:30; Status DC Iohexol (Omnipaque 350 Inj) 96 ml STK-MED ONCE IVCONTRAST Last administered on 03/13/17 17:15; Start 03/13/17 at 17:15; Stop 03/13/17 at 17:30; Status DC Furosemide (Lasix) 40 mg DAILY PO Last administered on 03/15/17 10:00; Start 03/14/17 at 09:00 Acetaminophen/ Hydrocodone Bitart ([place] 10-325 Mg) 1 tab Q4H PRN PO PAIN Last administered on 03/15/17 10:02; Start 03/13/17 at 18:15 Sodium Chloride 1,000 ml @ 100 mls/hr Q10H IV Last administered on 03/14/17 05:03; Start 03/13/17 at 18:10; Stop 03/14/17 at 13:10; Status DC Sodium Chloride (NS Flush) 2 ml UNSCH PRN IV FLUSH FLUSH AFTER USING IV ACCESS ; Start 03/13/17 at 18:15 Sodium Chloride (NS Flush) 2 ml BID IV FLUSH Last administered on 03/15/17 10: 01; Start 03/13/17 at 21:00 Acetaminophen (Tylenol) 650 mg Q4H PRN PO TEMP > 100.4; Start 03/13/17 at 18:15 Ondansetron HCl (Zofran Inj) 4 mg Q6H PRN IVP NAUSEA OR VOMITING Last administered on 03/15/17 05:28; Start 03/13/17 at 18:15 Naloxone HCl (Narcan Inj) 0.4 mg UNSCH PRN IV SEE LABEL COMMENTS; Start at 18:15 Senna/Docusate Sodium (Minna-Colace) 1 tab BID PO Last administered on 10:01; Start 03/13/17 at 21:00 Magnesium Hydroxide (Milk Of Magnesia Liq) 30 ml Q12H PRN PO MILD - MODERATE CONSTIPATION; Start 03/13/17 at 18:15 Sennosides (Senokot) 17.2 mg Q12H PRN PO MODERATE - SEVERE CONSTIPATION; Start 03/13/17 at 18:15 Bisacodyl (Dulcolax Supp) 10 mg DAILY PRN RECTAL SEVERE CONSITIPATION; Start at 18:15 Lactulose (Lactulose Liq) 30 ml DAILY PRN PO SEVERE CONSITIPATION; Start at 18:15 Pantoprazole Sodium (Protonix Inj) 40 mg Q24H IV PUSH Last administered on 03/14 20:00; Start 03/13/17 at 20:00 Ipratropium [place] (Atrovent Neb) 0.5 mg Q4HR NEB NEB Last administered on 11:10; Start 03/13/17 at 20:00 Budesonide (Pulmicort Respule Neb) 0.5 mg Q12HR NEB NEB Last administered on 19:50; Start 03/13/17 at 20:00 Guaifenesin (Mucinex Er) 600 mg BID PO Last administered on 8/22/17at 10:01; Start 03/13/17 at 21:00 Multivitamins 10 ml/Folic Acid 1 mg/Sodium Chloride 510.2 ml @ 125 mls/hr Q24H IV Last administered on 03/14/17 21:22; Start 03/13/17 at 20:00; Stop at 19:59 Thiamine HCl 100 mg/Sodium Chloride 101 ml @ 100 mls/hr Q24H IV Last administered on 03/14/17 21:22; Start 03/13/17 at 20:00; Stop 03/16/17 at 19:59 Thiamine HCl (Vitamin B1) 100 mg DAILY PO ; Start 03/17/17 at 09:00 Flumazenil (Romazicon Inj) 0.2 mg Q1M PRN IV PUSH SEE LABEL COMMENTS; Start at 18:45 Lorazepam (Ativan Inj) 1 mg Q4H PRN IV PUSH CIWA 8 - 10; Start 03/13/17 at 18: 45 Lorazepam (Ativan Inj) 2 mg Q2H PRN IV PUSH CIWA 11-14; Start 03/13/17 at 18:45 Insulin Human Regular (NovoLIN R SUPPLEMENTAL SCALE) 1 ACHS SLIDING SCALE SQ ; Start 03/13/17 at 21:00 Albumin Human (Albumin 25% Inj) 25 gm Q12H IV Last administered on 03/15/17 10 :00; Start 03/13/17 at 20:00 Vancomycin HCl 1500 mg/Sodium Chloride 515 ml @ 257.5 mls/ hr ONCE ONCE IV ; Start 03/13/17 at 19:00; Stop 03/13/17 at 20:59; Status UNV Pharmacy Profile Note 0 ml @ 0 mls/hr UNSCH OTHER ; Start 03/13/17 at 19:00 Piperacillin Sod/ Tazobactam Sod 50 ml @ 100 mls/hr Q6H IV Last administered on 03/15/17 04:41; Start 03/13/17 at 23:00 Vancomycin HCl 1200 mg/Sodium Chloride 262 ml @ 250 mls/hr Q12H IV Last administered on 03/15/17 03:34; Start 03/14/17 at 03:00 Miscellaneous Information SPECIFIC LAB TO BE ... ONCE ONCE .XX ; Start 03/15 at 14:45; Stop 03/15/17 at 14:46 Metoprolol Tartrate (Lopressor) 12.5 mg Q12HR PO Last administered on t 10:00; Start 03/14/17 at 21:00 Diltiazem HCl (Cardizem) 30 mg Q6HR PO ; Start 03/15/17 at 06:00 A/P Assessment and Plan A/P 1. Sepsis/Pneumonia in a patient recently hospitalized and discharged from this facility, new CXR showing Right basilar consolidation to continue Bronchodilator, Mucolytic, Incentive spirometry, Suspected right pleural effusion, CT abdomen and Pelvis with Multiple splenic infarctions, Cirrhosis and signs of portal venous hypertension, passive congestion fo the mesentery with edematous small and large bowel loops, in addition to anasarca worse since the prior admission. Blood cultures negative, Negative Legionella antigen, Negative Pneumococcal antigen. continue Vancomycin and Zosyn started due to Health Care Associated Pneumonia. will deescalate the antibiotic regimen soon if remains stable. 2. EtOH Thiamine, Folate Multivitamins, CIWA protocol, strongly recommended to stop drinking alcohol. 3. CAD Atrial Fibrillation with RVR - now HR better controlled- continue Cardizem and metoprolol. continue to monitor. 4. Hypertension stable- will monitor. 5. Chronic Right Rib fractures 6. 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 INR 2. 7. DM II Sliding-scale insulin with Accu-Cheks to maintain euglycemia/low regimen, controlled. 8. Severe Thrombocytopenia secondary to underlying liver disease - will monitor. 9. History of Strep Viridans Endocarditis, history of T8/T9 Discitis Prophylaxis - GI - Protonix - DVT - SCD/pharmacological prophylaxis contraindicated secondary to thrombocytopenia/underlying coagulopathy Bradford White MD Mar 15, 2017 11:46
--- NOTE | 2017-03-15 11:47 | HHI.FF ---
Face to Face Verification Diagnosis: (1) Pneumonia Physical Therapy Order: Evaluate and Treat Home Health Nursing Order: Medical education Signs/symptoms of disease process Medication education-adverse effect Nursing assessment with vital signs I have seen patient Dallas Stovall on 03/15/17. My clinical findings support the need for the requested home health care services because: Ltd mobility - disease progression I certify that my clinical findings support that this patient is homebound because: Unsteady gait/balance Bradford White MD Mar 15, 2017 11:47
[2017-03-15] MEDS ORDERED: PHARMACY ORDERED LAB ONE (14:45)
[2017-03-15] MEDS: RESP: BUDESONIDE 0.5 MG/2 ML NEB NEB SCH (19:23)
[2017-03-15] MEDS: PANTOPRAZOLE SODIUM 40 MG VIAL IV PUSH SCH (19:57)
[2017-03-15] MEDS: THIAMINE INJ 100 MG in SODIUM CHLORIDE 0.9% INJ 100 ML IV SCH (19:57)
[2017-03-15] MEDS: MULTIVITAMIN INJ 10 ML, FOLIC ACID INJ 1 MG in SODIUM CHLORID 0.9% 500 ML INJ 500 ML IV SCH (19:59)
[2017-03-16] VITALS (11 sets, daily range): BP systolic 114–152; BP diastolic 60–70; PULSE 68–83; RESP 18–20; TEMP 97.3–97.8; O2SAT 93–98
[2017-03-16] MEDS: DILTIAZEM HCL 30 MG TAB PO SCH ×5 (01:00→23:20)
[2017-03-16] MEDS: ACETAMINOPHEN/HYDROcodone 325 MG/10 MG TAB PO PRN ×3 (03:50→20:43)
[2017-03-16] MEDS: PIPERACIL-TAZO 3.375 GM PREMIX 50 ML IV SCH ×4 (03:51→23:20)
[2017-03-16] MEDS: RESP: IPRATROPIUM 0.5 MG/2.5 ML NEB NEB SCH ×6 (03:57→23:55)
[2017-03-16] MEDS ORDERED: VANCOMYCIN INJ 1,100 MG in SODIUM CHLOR 0.9% 250 ML INJ 250 ML IV SCH (05:00)
[2017-03-16] MEDS: INSULIN NovoLIN REGULAR SUPPLEMENTAL SCALE SQ SCH ×4 (05:24→20:44)
[2017-03-16] MEDS: RESP: BUDESONIDE 0.5 MG/2 ML NEB NEB SCH ×2 (08:13→19:40)
[2017-03-16] MEDS: guaiFENesin E.R. 600 MG TAB PO SCH ×2 (09:56→20:43)
[2017-03-16] MEDS: FUROSEMIDE 40 MG TAB PO SCH (09:56)
[2017-03-16] MEDS: DOCUSATE SODIUM 50 MG/SENNA 8.6 MG TAB PO SCH ×2 (09:56→20:42)
[2017-03-16] MEDS: METOPROLOL TARTRATE 25 MG TAB PO SCH ×2 (09:57→20:42)
[2017-03-16] MEDS: SODIUM CHLORIDE 0.9% FLUSH 10 ML FLUSH IV FLUSH SCH ×2 (09:57→20:44)
[2017-03-16] MEDS: ALBUMIN HUMAN 25% 25 GM/100 ML BAGP IV SCH ×2 (09:57→20:43)
--- NOTE | 2017-03-16 11:38 | HHI.PR ---
Subjective Remarks in no acute distress. afebrile. d/w the RN. Objective Vitals Vital Signs Date Time Temp Pulse Resp B/P (MAP) Pulse Ox O2 Delivery O2 Flow Rate FiO2 03/16/17 08:16 95 03/16/17 04:24 Room Air 03/16/17 04:00 97.3 68 18 117/60 (79) 95 03/16/17 00:17 Room Air 03/16/17 00:00 97.7 71 18 150/67 (94) 96 03/15/17 23:57 94 21 03/15/17 20:23 80 03/15/17 20:00 97.7 76 18 103/62 (76) 96 03/15/17 20:00 Room Air 03/15/17 16:00 97.5 69 18 119/59 (79) 96 120/65 (83) 03/15/17 12:00 97.1 70 18 110/61 (77) 94 I/O 03/15/17 03/15/17 03/15/17 03/16/17 03/16/17 03/16/17 07:00 15:00 23:00 07:00 15:00 23:00 Intake Total 2522.2 ml 480 ml 896 ml 1061 ml Output Total 700 ml 600 ml 800 ml Balance 1822.2 ml -120 ml 896 ml 261 ml Intake Oral 240 ml 480 ml 240 ml IV Total 2082.2 ml 896 ml 821 ml Albumin 200 ml Output Urine Total 700 ml 600 ml 800 ml # Bowel Movements 0 0 0 Result Diagram: 03/14/17 0644 03/14/17 0644 Imaging Last Impressions Chest X-Ray 03/15/17 0700 Signed Impressions: Service Date/Time: Wednesday, March 15, 2017 08:52 - CONCLUSION: 1. Cardiomegaly with pulmonary vascular engorgement. 2. Bilateral pleural effusions, right larger than left, with right lower lobe infiltrate. Todd Cortes Jr., MD Abdomen/Pelvis CT 03/13/17 1305 Signed Impressions: Service Date/Time: Monday, March 13, 2017 17:07 - CONCLUSION: 1. Multiple splenic infarctions. 2. Cirrhosis and signs of portal venous hypertension not significantly changed. 3. There is passive congestion of the mesentery with edematous small and large bowel loops in addition to anasarca worse since the prior exam. Antoine Ramires MD Objective Remarks GENERAL: This is a well-nourished, well-developed patient, in no apparent distress. CARDIOVASCULAR: Regular rate and regular rhythm without murmurs, gallops, or rubs. RESPIRATORY: Clear to auscultation. Breath sounds equal bilaterally. No wheezes , rales, or rhonchi. GASTROINTESTINAL: Abdomen soft, non-tender, nondistended. Normal, active bowel sounds MUSCULOSKELETAL: Extremities with bilateral pedal edema. NEURO: Alert & Oriented x4 to person, place, time, situation. Moves all ext x4 Medications and IVs Current Medications Morphine Sulfate (Morphine Inj) 2 mg ONCE ONCE IV PUSH Last administered on 13:39; Start 03/13/17 at 13:15; Stop 03/13/17 at 13:16; Status DC Ondansetron HCl (Zofran Inj) 4 mg ONCE ONCE IVP Last administered on 13:38; Start 03/13/17 at 13:15; Stop 03/13/17 at 13:16; Status DC Sodium Chloride 1,000 ml @ 1,000 mls/hr Q1H IV Last administered on 03/13/17 13:38; Start 03/13/17 at 13:05; Stop 03/13/17 at 14:04; Status DC Sodium Chloride (NS Flush) 2 ml UNSCH PRN IV FLUSH FLUSH AFTER USING IV ACCESS ; Start 03/13/17 at 13:15; Stop 03/13/17 at 19:22; Status DC Diltiazem HCl (Cardizem Inj) 20 mg ONCE ONCE IV Last administered on 14:02; Start 03/13/17 at 14:00; Stop 03/13/17 at 14:01; Status DC Diltiazem HCl 125 mg/Sodium Chloride 125 ml @ 0 mls/hr TITRATE IV Last administered on 03/14/17 22:50; Start 03/13/17 at 14:45; Stop 03/15/17 at 04:35 ; Status DC Piperacillin Sod/ Tazobactam Sod 100 ml @ 200 mls/hr ONCE ONCE IV Last administered on 03/13/17 17:13; Start 03/13/17 at 14:45; Stop 03/13/17 at 15:14 ; Status DC Azithromycin 500 mg/Sodium Chloride 250 ml @ 250 mls/hr ONCE ONCE IV Last administered on 03/13/17 17:56; Start 03/13/17 at 14:45; Stop 03/13/17 at 15:44 ; Status DC Albuterol/ Ipratropium (Duoneb Neb) 1 ampule ONCE ONCE INH Last administered on 03/13/17 14:49; Start 03/13/17 at 14:45; Stop 03/13/17 at 14:46; Status DC Sodium Chloride 1,000 ml @ 999 mls/hr BOLUS ONCE IV Last administered on 03/13 19:53; Start 03/13/17 at 16:30; Stop 03/13/17 at 17:30; Status DC Sodium Chloride 1,000 ml @ 999 mls/hr BOLUS ONCE IV ; Start 03/13/17 at 16:30 ; Stop 03/13/17 at 16:40; Status DC Vancomycin HCl 1000 mg/Sodium Chloride 250 ml @ 250 mls/hr ONCE ONCE IV Last administered on 03/13/17 17:25; Start 03/13/17 at 16:30; Stop 03/13/17 at 17:30 ; Status DC Metronidazole 100 ml @ 100 mls/hr ONCE ONCE IV Last administered on 19:15; Start 03/13/17 at 16:30; Stop 03/13/17 at 17:30; Status DC Iohexol (Omnipaque 350 Inj) 96 ml STK-MED ONCE IVCONTRAST Last administered on 03/13/17 17:15; Start 03/13/17 at 17:15; Stop 03/13/17 at 17:30; Status DC Furosemide (Lasix) 40 mg DAILY PO Last administered on 03/16/17 09:56; Start 03/14/17 at 09:00 Acetaminophen/ Hydrocodone Bitart ([place] 10-325 Mg) 1 tab Q4H PRN PO PAIN Last administered on 03/16/17 09:56; Start 03/13/17 at 18:15 Sodium Chloride 1,000 ml @ 100 mls/hr Q10H IV Last administered on 03/14/17 05:03; Start 03/13/17 at 18:10; Stop 03/14/17 at 13:10; Status DC Sodium Chloride (NS Flush) 2 ml UNSCH PRN IV FLUSH FLUSH AFTER USING IV ACCESS ; Start 03/13/17 at 18:15 Sodium Chloride (NS Flush) 2 ml BID IV FLUSH Last administered on 03/16/17 09: 57; Start 03/13/17 at 21:00 Acetaminophen (Tylenol) 650 mg Q4H PRN PO TEMP > 100.4; Start 03/13/17 at 18:15 Ondansetron HCl (Zofran Inj) 4 mg Q6H PRN IVP NAUSEA OR VOMITING Last administered on 03/15/17 05:28; Start 03/13/17 at 18:15 Naloxone HCl (Narcan Inj) 0.4 mg UNSCH PRN IV SEE LABEL COMMENTS; Start at 18:15 Senna/Docusate Sodium ([place]-Colace) 1 tab BID PO Last administered on 09:56; Start 03/13/17 at 21:00 Magnesium Hydroxide (Milk Of Magnesia Liq) 30 ml Q12H PRN PO MILD - MODERATE CONSTIPATION; Start 03/13/17 at 18:15 Sennosides (Senokot) 17.2 mg Q12H PRN PO MODERATE - SEVERE CONSTIPATION; Start 03/13/17 at 18:15 Bisacodyl (Dulcolax Supp) 10 mg DAILY PRN RECTAL SEVERE CONSITIPATION; Start at 18:15 Lactulose (Lactulose Liq) 30 ml DAILY PRN PO SEVERE CONSITIPATION; Start at 18:15 Pantoprazole Sodium (Protonix Inj) 40 mg Q24H IV PUSH Last administered on 03/15 19:57; Start 03/13/17 at 20:00 Ipratropium [place] (Atrovent Neb) 0.5 mg Q4HR NEB NEB Last administered on 08:13; Start 03/13/17 at 20:00 Budesonide (Pulmicort Respule Neb) 0.5 mg Q12HR NEB NEB Last administered on 08:13; Start 03/13/17 at 20:00 Guaifenesin (Mucinex Er) 600 mg BID PO Last administered on 03/16/17 09:56; Start 03/13/17 at 21:00 Multivitamins 10 ml/Folic Acid 1 mg/Sodium Chloride 510.2 ml @ 125 mls/hr Q24H IV Last administered on 03/15/17 19:59; Start 03/13/17 at 20:00; Stop at 19:59 Thiamine HCl 100 mg/Sodium Chloride 101 ml @ 100 mls/hr Q24H IV Last administered on 03/15/17 19:57; Start 03/13/17 at 20:00; Stop 03/16/17 at 19:59 Thiamine HCl (Vitamin B1) 100 mg DAILY PO ; Start 03/17/17 at 09:00 Flumazenil (Romazicon Inj) 0.2 mg Q1M PRN IV PUSH SEE LABEL COMMENTS; Start at 18:45 Lorazepam (Ativan Inj) 1 mg Q4H PRN IV PUSH CIWA 8 - 10; Start 03/13/17 at 18: 45 Lorazepam (Ativan Inj) 2 mg Q2H PRN IV PUSH CIWA 11-14; Start 03/13/17 at 18:45 Insulin Human Regular (NovoLIN R SUPPLEMENTAL SCALE) 1 ACHS SLIDING SCALE SQ ; Start 03/13/17 at 21:00 Albumin Human (Albumin 25% Inj) 25 gm Q12H IV Last administered on 03/16/17 09 :57; Start 03/13/17 at 20:00 Vancomycin HCl 1500 mg/Sodium Chloride 515 ml @ 257.5 mls/ hr ONCE ONCE IV ; Start 03/13/17 at 19:00; Stop 03/13/17 at 20:59; Status UNV Pharmacy Profile Note 0 ml @ 0 mls/hr UNSCH OTHER ; Start 03/13/17 at 19:00 Piperacillin Sod/ Tazobactam Sod 50 ml @ 100 mls/hr Q6H IV Last administered on 03/16/17 03:51; Start 03/13/17 at 23:00 Vancomycin HCl 1200 mg/Sodium Chloride 262 ml @ 250 mls/hr Q12H IV Last administered on 03/15/17 17:00; Start 03/14/17 at 03:00; Stop 03/15/17 at 20:06 ; Status DC Miscellaneous Information SPECIFIC LAB TO BE ... ONCE ONCE .XX Last administered on 03/15/17 16:59; Start 03/15/17 at 14:45; Stop 03/15/17 at 14:46 ; Status DC Metoprolol Tartrate (Lopressor) 12.5 mg Q12HR PO Last administered on 09:57; Start 03/14/17 at 21:00 Diltiazem HCl (Cardizem) 30 mg Q6HR PO Last administered on 03/16/17 05:24; Start 03/15/17 at 06:00 Vancomycin HCl 1100 mg/Sodium Chloride 261 ml @ 250 mls/hr Q12H IV Last administered on 03/16/17 03:51; Start 03/16/17 at 05:00; Stop 03/16/17 at 10:57 ; Status DC Miscellaneous Information SPECIFIC LAB TO BE DRAWN:VANCO TROUGH DATE TO BE DR... ONCE ONCE .XX ; Start 03/16/17 at 16:45; Stop 03/16/17 at 16:46; Status Cancel Vancomycin HCl 1500 mg/Sodium Chloride 515 ml @ 250 mls/hr Q18H IV ; Start at 18:00 Miscellaneous Information SPECIFIC LAB TO BE DRAWN:VANCOMYCIN TROUGH DATE TO... ONCE ONCE .XX ; Start 03/18/17 at 05:45; Stop 03/18/17 at 05:46 A/P Assessment and Plan A/P 1. Sepsis/Pneumonia in a patient recently hospitalized and discharged from this facility, new CXR showing Right basilar consolidation to continue Bronchodilator, Mucolytic, Incentive spirometry CT abdomen and Pelvis with Multiple splenic infarctions, Cirrhosis and signs of portal venous hypertension, passive congestion fo the mesentery with edematous small and large bowel loops, in addition to anasarca worse since the prior admission. Blood cultures negative, Negative Legionella antigen, Negative Pneumococcal antigen. continue Vancomycin and Zosyn started due to Health Care Associated Pneumonia. will deescalate the antibiotic regimen soon if remains stable. CXR in am- will consider thoracentesis if pleural effusion doesn't improve. 2. EtOH Thiamine, Folate Multivitamins, CIWA protocol, strongly recommended to stop drinking alcohol. 3. CAD Atrial Fibrillation with RVR - now HR better controlled- continue Cardizem and metoprolol. continue to monitor. 4. Hypertension stable- will monitor. 5. Chronic Right Rib fractures 6. 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 INR 2. 7. DM II Sliding-scale insulin with Accu-Cheks to maintain euglycemia/low regimen, controlled. 8. Severe Thrombocytopenia secondary to underlying liver disease - will monitor. 9. History of Strep Viridans Endocarditis, history of T8/T9 Discitis Prophylaxis - GI - Protonix - DVT - SCD/pharmacological prophylaxis contraindicated secondary to thrombocytopenia/underlying coagulopathy Bradford White MD Mar 16, 2017 11:38
[2017-03-16] MEDS ORDERED: PHARMACY ORDERED LAB ONE (16:45)
[2017-03-16] MEDS: VANCOMYCIN INJ 1,500 MG in SODIUM CHLORID 0.9% 500 ML INJ 500 ML IV SCH (18:43)
[2017-03-16 19:22] LABS: AUTOMATED NEUTROPHIL # 6.5 TH/MM3 (1.8-7.7); BASOPHIL % 0.4 % (0.0-2.0); EOSINOPHIL % 0.6 % (0.0-4.0); HEMATOCRIT 31.4 % (39.0-51.0); LYMPH % 4.6 % (9.0-44.0); LYMPHOCYTE # 0.3 TH/MM3 (1.0-4.8); MEAN CELL VOLUME 115.1 FL (80.0-100.0); MEAN CORPUSCULAR HEMOGLOBIN 39.6 PG (27.0-34.0); MEAN CORPUSCULAR HGB CONC 34.4 % (32.0-36.0); MONO % 8.5 % (0.0-8.0); NEUT % 85.9 % (16.0-70.0); PLATELET COUNT 23 TH/MM3 (150-450); RED BLOOD COUNT 2.73 MIL/MM3 (4.50-5.90); RED CELL DISTRIBUTION WIDTH 17.4 % (11.6-17.2); WHITE BLOOD COUNT 7.6 TH/MM3 (4.0-11.0)
[2017-03-16 19:23] LABS: HEMO FLAGS AUTO DIFF
[2017-03-16 19:48] LABS: BANDS 22 % (0-6); NEUTROPHIL # MANUAL DIFF 6.9 TH/MM3 (1.8-7.7); POLYS (SEG NEUTROPHILS) 69 % (16-70); WBC DIFF SAMPLE 100
[2017-03-16 19:49] LABS: PLATELET ESTIMATE SMEAR LOW (NORMAL); PLATELET MORPHOLOGY NORMAL (NORMAL); SCAN/DIFF FINAL DIFF MANUAL
[2017-03-16] MEDS: PANTOPRAZOLE SODIUM 40 MG VIAL IV PUSH SCH (20:42)
[2017-03-16] MEDS: MULTIVITAMIN INJ 10 ML, FOLIC ACID INJ 1 MG in SODIUM CHLORID 0.9% 500 ML INJ 500 ML IV SCH (20:43)
[2017-03-17] VITALS (7 sets, daily range): BP systolic 101–145; BP diastolic 55–80; PULSE 73–100; RESP 16–20; TEMP 97.4–98.1; O2SAT 91–98
[2017-03-17] MEDS: RESP: IPRATROPIUM 0.5 MG/2.5 ML NEB NEB SCH ×6 (03:22→23:18)
[2017-03-17] MEDS: INSULIN NovoLIN REGULAR SUPPLEMENTAL SCALE SQ SCH ×4 (06:09→21:00)
[2017-03-17] MEDS: DILTIAZEM HCL 30 MG TAB PO SCH ×4 (06:09→22:49)
[2017-03-17] MEDS: PIPERACIL-TAZO 3.375 GM PREMIX 50 ML IV SCH ×2 (06:09→11:00)
--- NOTE | 2017-03-17 07:07 | RADRPT ---
EXAM DATE/TIME: 03/17/2017 06:25 [facility] COMPARISON: CHEST PA & LAT, March 15, 2017, 8:52. INDICATIONS : Short of breath, evaluate pneumonia MEDICAL HISTORY : Hypertension. Diabetes mellitus type II. Congestive heart failure. MO,asthma SURGICAL HISTORY : None. ENCOUNTER: Subsequent ACUITY: 1 week PAIN SCORE: 0/10 LOCATION: Bilateral chest FINDINGS: Getting noted atherosclerotic cardiovascular disease with cardiomegaly decompensated with pulmonary v ascular congestion CHF. Probable right effusion and asymmetric density in the right lung base maybe s econdary to this or potentially a subtle infiltrate superimposed. Overall findings are stable CONCLUSION: Stable chest Dino Lucero MD on March 17, 2017 at 7:03 Board Certified Radiologist. This report was verified electronically.
[2017-03-17] MEDS: RESP: BUDESONIDE 0.5 MG/2 ML NEB NEB SCH ×2 (08:00→19:50)
[2017-03-17] MEDS: ACETAMINOPHEN/HYDROcodone 325 MG/10 MG TAB PO PRN ×3 (08:28→22:22)
[2017-03-17] MEDS: guaiFENesin E.R. 600 MG TAB PO SCH ×2 (08:28→22:22)
[2017-03-17] MEDS: THIAMINE HCL 100 MG TAB PO SCH (08:28)
[2017-03-17] MEDS: DOCUSATE SODIUM 50 MG/SENNA 8.6 MG TAB PO SCH ×2 (08:29→22:22)
[2017-03-17] MEDS: METOPROLOL TARTRATE 25 MG TAB PO SCH ×2 (08:29→22:21)
[2017-03-17] MEDS: ALBUMIN HUMAN 25% 25 GM/100 ML BAGP IV SCH ×2 (08:29→22:40)
[2017-03-17] MEDS: FUROSEMIDE 40 MG TAB PO SCH (08:29)
[2017-03-17] MEDS: SODIUM CHLORIDE 0.9% FLUSH 10 ML FLUSH IV FLUSH SCH ×2 (08:34→22:40)
--- NOTE | 2017-03-17 10:24 | HHI.PR ---
Subjective Remarks in no acute distress. denies sob. afebrile. has some pain to the knees. Objective Vitals Vital Signs Date Time Temp Pulse Resp B/P (MAP) Pulse Ox O2 Delivery O2 Flow Rate FiO2 03/17/17 08:00 97.6 91 20 119/64 (82) 97 03/17/17 05:22 97.5 80 18 101/55 (70) 94 03/16/17 23:56 95 21 03/16/17 23:12 97.8 81 18 114/69 (84) 93 03/16/17 20:30 Room Air 03/16/17 20:00 79 03/16/17 19:49 97.4 83 18 135/70 (91) 95 Automatic Cuff 03/16/17 19:41 97 03/16/17 16:00 97.3 80 20 123/64 (83) 98 03/16/17 12:00 97.3 78 20 152/64 (93) 98 03/16/17 11:29 16 I/O 03/16/17 03/16/17 03/16/17 03/17/17 03/17/17 03/17/17 06:59 14:59 22:59 06:59 14:59 22:59 Intake Total 1061 ml 1095 ml 910.2 ml Output Total 800 ml 1200 ml 1300 ml Balance 261 ml -105 ml -389.8 ml Intake Oral 240 ml 480 ml 300 ml IV Total 821 ml 615 ml 610.2 ml Output Urine Total 800 ml 1200 ml 1300 ml # Bowel Movements 0 0 1 Result Diagram: 03/16/17 1745 03/16/17 1345 Imaging Last Impressions Chest X-Ray 03/17/17 0600 Signed Impressions: Service Date/Time: February 06:25 - CONCLUSION: Stable chest Dino Lucero MD Abdomen/Pelvis CT 03/13/17 1305 Signed Impressions: Service Date/Time: Monday, March 13, 2017 17:07 - CONCLUSION: 1. Multiple splenic infarctions. 2. Cirrhosis and signs of portal venous hypertension not significantly changed. 3. There is passive congestion of the mesentery with edematous small and large bowel loops in addition to anasarca worse since the prior exam. Antoine Ramires MD Objective Remarks GENERAL: This is a well-nourished, well-developed patient, in no apparent distress. CARDIOVASCULAR: Regular rate and regular rhythm without murmurs, gallops, or rubs. RESPIRATORY: Clear to auscultation. Breath sounds equal bilaterally. No wheezes , rales, or rhonchi. GASTROINTESTINAL: Abdomen soft, non-tender, nondistended. Normal, active bowel sounds MUSCULOSKELETAL: Extremities with bilateral pedal edema. NEURO: Alert & Oriented x4 to person, place, time, situation. Moves all ext x4 Medications and IVs Current Medications Morphine Sulfate (Morphine Inj) 2 mg ONCE ONCE IV PUSH Last administered on 13:39; Start 03/13/17 at 13:15; Stop 03/13/17 at 13:16; Status DC Ondansetron HCl (Zofran Inj) 4 mg ONCE ONCE IVP Last administered on 13:38; Start 03/13/17 at 13:15; Stop 03/13/17 at 13:16; Status DC Sodium Chloride 1,000 ml @ 1,000 mls/hr Q1H IV Last administered on 03/13/17 13:38; Start 03/13/17 at 13:05; Stop 03/13/17 at 14:04; Status DC Sodium Chloride (NS Flush) 2 ml UNSCH PRN IV FLUSH FLUSH AFTER USING IV ACCESS ; Start 03/13/17 at 13:15; Stop 03/13/17 at 19:22; Status DC Diltiazem HCl (Cardizem Inj) 20 mg ONCE ONCE IV Last administered on 14:02; Start 03/13/17 at 14:00; Stop 03/13/17 at 14:01; Status DC Diltiazem HCl 125 mg/Sodium Chloride 125 ml @ 0 mls/hr TITRATE IV Last administered on 03/14/17 22:50; Start 03/13/17 at 14:45; Stop 03/15/17 at 04:35 ; Status DC Piperacillin Sod/ Tazobactam Sod 100 ml @ 200 mls/hr ONCE ONCE IV Last administered on 03/13/17 17:13; Start 03/13/17 at 14:45; Stop 03/13/17 at 15:14 ; Status DC Azithromycin 500 mg/Sodium Chloride 250 ml @ 250 mls/hr ONCE ONCE IV Last administered on 03/13/17 17:56; Start 03/13/17 at 14:45; Stop 03/13/17 at 15:44 ; Status DC Albuterol/ Ipratropium (Duoneb Neb) 1 ampule ONCE ONCE INH Last administered on 03/13/17 14:49; Start 03/13/17 at 14:45; Stop 03/13/17 at 14:46; Status DC Sodium Chloride 1,000 ml @ 999 mls/hr BOLUS ONCE IV Last administered on 03/13 19:53; Start 03/13/17 at 16:30; Stop 03/13/17 at 17:30; Status DC Sodium Chloride 1,000 ml @ 999 mls/hr BOLUS ONCE IV ; Start 03/13/17 at 16:30 ; Stop 03/13/17 at 16:40; Status DC Vancomycin HCl 1000 mg/Sodium Chloride 250 ml @ 250 mls/hr ONCE ONCE IV Last administered on 03/13/17 17:25; Start 03/13/17 at 16:30; Stop 03/13/17 at 17:30 ; Status DC Metronidazole 100 ml @ 100 mls/hr ONCE ONCE IV Last administered on 19:15; Start 03/13/17 at 16:30; Stop 03/13/17 at 17:30; Status DC Iohexol (Omnipaque 350 Inj) 96 ml STK-MED ONCE IVCONTRAST Last administered on 03/13/17 17:15; Start 03/13/17 at 17:15; Stop 03/13/17 at 17:30; Status DC Furosemide (Lasix) 40 mg DAILY PO Last administered on 03/17/17 08:29; Start 03/14/17 at 09:00 Acetaminophen/ Hydrocodone Bitart ([place] 10-325 Mg) 1 tab Q4H PRN PO PAIN Last administered on 03/17/17 08:28; Start 03/13/17 at 18:15 Sodium Chloride 1,000 ml @ 100 mls/hr Q10H IV Last administered on 03/14/17 05:03; Start 03/13/17 at 18:10; Stop 03/14/17 at 13:10; Status DC Sodium Chloride (NS Flush) 2 ml UNSCH PRN IV FLUSH FLUSH AFTER USING IV ACCESS ; Start 03/13/17 at 18:15 Sodium Chloride (NS Flush) 2 ml BID IV FLUSH Last administered on 03/17/17 08: 34; Start 03/13/17 at 21:00 Acetaminophen (Tylenol) 650 mg Q4H PRN PO TEMP > 100.4; Start 03/13/17 at 18:15 Ondansetron HCl (Zofran Inj) 4 mg Q6H PRN IVP NAUSEA OR VOMITING Last administered on 03/15/17 05:28; Start 03/13/17 at 18:15 Naloxone HCl (Narcan Inj) 0.4 mg UNSCH PRN IV SEE LABEL COMMENTS; Start at 18:15 Senna/Docusate Sodium (Minna-Colace) 1 tab BID PO Last administered on 08:29; Start 03/13/17 at 21:00 Magnesium Hydroxide (Milk Of Magnesia Liq) 30 ml Q12H PRN PO MILD - MODERATE CONSTIPATION; Start 03/13/17 at 18:15 Sennosides (Senokot) 17.2 mg Q12H PRN PO MODERATE - SEVERE CONSTIPATION; Start 03/13/17 at 18:15 Bisacodyl (Dulcolax Supp) 10 mg DAILY PRN RECTAL SEVERE CONSITIPATION; Start at 18:15 Lactulose (Lactulose Liq) 30 ml DAILY PRN PO SEVERE CONSITIPATION; Start at 18:15 Pantoprazole Sodium (Protonix Inj) 40 mg Q24H IV PUSH Last administered on 03/16 20:42; Start 03/13/17 at 20:00 Ipratropium [place] (Atrovent Neb) 0.5 mg Q4HR NEB NEB Last administered on 23:55; Start 03/13/17 at 20:00 Budesonide (Pulmicort Respule Neb) 0.5 mg Q12HR NEB NEB Last administered on 19:40; Start 03/13/17 at 20:00 Guaifenesin (Mucinex Er) 600 mg BID PO Last administered on 03/17/17 08:28; Start 03/13/17 at 21:00 Multivitamins 10 ml/Folic Acid 1 mg/Sodium Chloride 510.2 ml @ 125 mls/hr Q24H IV Last administered on 03/16/17 20:43; Start 03/13/17 at 20:00; Stop at 19:59 Thiamine HCl 100 mg/Sodium Chloride 101 ml @ 100 mls/hr Q24H IV Last administered on 03/15/17 19:57; Start 03/13/17 at 20:00; Stop 03/16/17 at 19:59 ; Status DC Thiamine HCl (Vitamin B1) 100 mg DAILY PO Last administered on 03/17/17 08:28 ; Start 03/17/17 at 09:00 Flumazenil (Romazicon Inj) 0.2 mg Q1M PRN IV PUSH SEE LABEL COMMENTS; Start at 18:45 Lorazepam (Ativan Inj) 1 mg Q4H PRN IV PUSH CIWA 8 - 10; Start 03/13/17 at 18: 45 Lorazepam (Ativan Inj) 2 mg Q2H PRN IV PUSH CIWA 11-14; Start 03/13/17 at 18:45 Insulin Human Regular (NovoLIN R SUPPLEMENTAL SCALE) 1 ACHS SLIDING SCALE SQ ; Start 03/13/17 at 21:00 Albumin Human (Albumin 25% Inj) 25 gm Q12H IV Last administered on 03/17/17 08 :29; Start 03/13/17 at 20:00 Vancomycin HCl 1500 mg/Sodium Chloride 515 ml @ 257.5 mls/ hr ONCE ONCE IV ; Start 03/13/17 at 19:00; Stop 03/13/17 at 20:59; Status UNV Pharmacy Profile Note 0 ml @ 0 mls/hr UNSCH OTHER ; Start 03/13/17 at 19:00 Piperacillin Sod/ Tazobactam Sod 50 ml @ 100 mls/hr Q6H IV Last administered on 03/17/17 06:09; Start 03/13/17 at 23:00 Vancomycin HCl 1200 mg/Sodium Chloride 262 ml @ 250 mls/hr Q12H IV Last administered on 03/15/17 17:00; Start 03/14/17 at 03:00; Stop 03/15/17 at 20:06 ; Status DC Miscellaneous Information SPECIFIC LAB TO BE ... ONCE ONCE .XX Last administered on 03/15/17 16:59; Start 03/15/17 at 14:45; Stop 03/15/17 at 14:46 ; Status DC Metoprolol Tartrate (Lopressor) 12.5 mg Q12HR PO Last administered on 08:29; Start 03/14/17 at 21:00 Diltiazem HCl (Cardizem) 30 mg Q6HR PO Last administered on 03/17/17 06:09; Start 03/15/17 at 06:00 Vancomycin HCl 1100 mg/Sodium Chloride 261 ml @ 250 mls/hr Q12H IV Last administered on 03/16/17 03:51; Start 03/16/17 at 05:00; Stop 03/16/17 at 10:57 ; Status DC Miscellaneous Information SPECIFIC LAB TO BE DRAWN:VANCO TROUGH DATE TO BE DR... ONCE ONCE .XX ; Start 03/16/17 at 16:45; Stop 03/16/17 at 16:46; Status Cancel Vancomycin HCl 1500 mg/Sodium Chloride 515 ml @ 250 mls/hr Q18H IV Last administered on 03/16/17 18:43; Start 03/16/17 at 18:00 Miscellaneous Information SPECIFIC LAB TO BE DRAWN:VANCOMYCIN TROUGH DATE TO... ONCE ONCE .XX ; Start 03/18/17 at 05:45; Stop 03/18/17 at 05:46 A/P Assessment and Plan A/P 1. Sepsis/Pneumonia in a patient recently hospitalized and discharged from this facility, new CXR showing Right basilar consolidation to continue Bronchodilator, Mucolytic, Incentive spirometry CT abdomen and Pelvis with Multiple splenic infarctions, Cirrhosis and signs of portal venous hypertension, passive congestion fo the mesentery with edematous small and large bowel loops, in addition to anasarca worse since the prior admission. Blood cultures negative, Negative Legionella antigen, Negative Pneumococcal antigen. continue antibiotics. repeated CXR today stable. 2. EtOH Thiamine, Folate Multivitamins, CIWA protocol, strongly recommended to stop drinking alcohol. 3. CAD Atrial Fibrillation with RVR - now HR better controlled- continue Cardizem and metoprolol. continue to monitor. 4. Hypertension stable- will monitor. 5. Chronic Right Rib fractures 6. 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 INR 2. 7. DM II Sliding-scale insulin with Accu-Cheks to maintain euglycemia/low regimen, controlled. 8. Severe Thrombocytopenia secondary to underlying liver disease - will monitor. 9. History of Strep Viridans Endocarditis, history of T8/T9 Discitis Prophylaxis - GI - Protonix - DVT - SCD/pharmacological prophylaxis contraindicated secondary to thrombocytopenia/underlying coagulopathy Discharge Planning dc home with C. see med list. f/u with pcp. rehab was offered but the patient declined. d/w the patient and his daughter. d/w the case management. time spent 35 min. Bradford White MD Mar 17, 2017 10:24
[2017-03-17] MEDS ORDERED: MULT1TAB46 PO (10:30)
[2017-03-17] MEDS ORDERED: GNP100TA3 PO (10:30)
[2017-03-17] MEDS ORDERED: METO25TA3 PO (10:30)
[2017-03-17] MEDS ORDERED: OXYC-395 PO (10:30)
[2017-03-17] MEDS ORDERED: CARD120C4 PO (10:30)
[2017-03-17] MEDS ORDERED: LEVA500T20 PO (10:30)
--- NOTE | 2017-03-17 10:32 | HHI.DS ---
Discharge Summary Admission Date Mar 13, 2017 at 18:26 Discharge Date: Mar 17, 2017 Admitting Diagnosis pneumonia (1) Pneumonia ICD Code: J18.9 - Pneumonia, unspecified organism Diagnosis: Principal Status: Acute Procedures none Brief History - From Admission This is a pleasant 66 y/o Male who came today with Abdominal pain that started yesterday, he vomited 14 to 15 times, Patient states pain is more right now radiates throughout his abdomen. Denies any chest pain, fevers, change in bowel or bladder, or back pain. Denies anything making this better or worse. Denies any hematemesis or coffee-ground emesis. The patient has Severe Thrombocytopenia, Lactic Acidosis is chronic issue, Hepatitic C, DM II, Hypertension, CAD with history of PCI and CABG x 3, Atrial Fibrillation with RVR on Cardizem drip on this admission, Aortic Stenosis, Esophageal Varices, recently hospitalized to this facility on 02/03/17, he has history of Aortic Valve Endocarditis, Strep Viridans/T8/T9 discitis, EtOH ongoing, History of T[facility]R at [facility], Seen in ER the patient is deaf difficult to perform a good history. CBC/BMP: 03/16/17 1745 03/16/17 1345 Significant Findings Laboratory Tests Test 03/15/17 17:00 03/16/17 13:45 03/16/17 17:45 Vancomycin Level Trough 19.1 MCG/ML (5.0-10.0) Creatinine 1.36 MG/DL (0.60-1.30) Estimat Glomerular Filtration Rate 53 ML/MIN (>89) Red Blood Count 2.73 MIL/MM3 (4.50-5.90) Hemoglobin 10.8 GM/DL (13.0-17.0) Hematocrit 31.4 % (39.0-51.0) Mean Corpuscular Volume 115.1 FL (80.0-100.0) Mean Corpuscular Hemoglobin 39.6 PG (27.0-34.0) Red Cell Distribution Width 17.4 % (11.6-17.2) Platelet Count 23 TH/MM3 (150-450) Neutrophils (%) (Auto) 85.9 % (16.0-70.0) Lymphocytes (%) (Auto) 4.6 % (9.0-44.0) Monocytes (%) (Auto) 8.5 % (0.0-8.0) Lymphocytes # (Auto) 0.3 TH/MM3 (1.0-4.8) Band Neutrophils % 22 % (0-6) Lymphocytes % 4 % (9-44) Platelet Estimate LOW (NORMAL) Imaging Last Impressions Chest X-Ray 03/17/17 0600 Signed Impressions: Service Date/Time: February 06:25 - CONCLUSION: Stable chest Dino Lucero MD Abdomen/Pelvis CT 03/13/17 1305 Signed Impressions: Service Date/Time: Monday, March 13, 2017 17:07 - CONCLUSION: 1. Multiple splenic infarctions. 2. Cirrhosis and signs of portal venous hypertension not significantly changed. 3. There is passive congestion of the mesentery with edematous small and large bowel loops in addition to anasarca worse since the prior exam. Antoine Ramires MD PE at Discharge GENERAL: This is a well-nourished, well-developed patient, in no apparent distress. CARDIOVASCULAR: Regular rate and regular rhythm without murmurs, gallops, or rubs. RESPIRATORY: Clear to auscultation. Breath sounds equal bilaterally. No wheezes , rales, or rhonchi. GASTROINTESTINAL: Abdomen soft, non-tender, nondistended. Normal, active bowel sounds MUSCULOSKELETAL: Extremities with bilateral pedal edema. NEURO: Alert & Oriented x4 to person, place, time, situation. Moves all ext x4 Hospital Course 1. Sepsis/Pneumonia in a patient recently hospitalized and discharged from this facility, new CXR showing Right basilar consolidation to continue Bronchodilator, Mucolytic, Incentive spirometry CT abdomen and Pelvis with Multiple splenic infarctions, Cirrhosis and signs of portal venous hypertension, passive congestion fo the mesentery with edematous small and large bowel loops, in addition to anasarca worse since the prior admission. Blood cultures negative, Negative Legionella antigen, Negative Pneumococcal antigen. continue antibiotics. repeated CXR today stable. 2. EtOH Thiamine, Folate Multivitamins, CIWA protocol, strongly recommended to stop drinking alcohol. 3. CAD Atrial Fibrillation with RVR - now HR better controlled- continue Cardizem and metoprolol. continue to monitor. 4. Hypertension stable- will monitor. 5. Chronic Right Rib fractures 6. 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 INR 2. 7. DM II Sliding-scale insulin with Accu-Cheks to maintain euglycemia/low regimen, controlled. 8. Severe Thrombocytopenia secondary to underlying liver disease - will monitor. 9. History of Strep Viridans Endocarditis, history of T8/T9 Discitis Prophylaxis - GI - Protonix - DVT - SCD/pharmacological prophylaxis contraindicated secondary to thrombocytopenia/underlying coagulopathy Pt Condition on Discharge: Fair Discharge Disposition: Disch w/ Home Health Serv Discharge Time: > 30 minutes Discharge Instructions DIET: Follow Instructions for: Heart Healthy Diet Activities you can perform: Regular-No Restrictions Follow up Referrals: PCP Follow-up New Medications: Diltiazem CD 24 HR (Cardizem CD 24 HR) 120 Mg Caper 120 MG PO DAILY for a-fib for 30 Days, #30 CAP 0 Refills Levofloxacin (Levaquin) 500 Mg Tablet 500 MG PO DAILY for Infection for 5 Days, TAB 0 Refills Multiple Vitamin (Multi Vitamin Daily) 1 Tab Tab 1 TAB PO DAILY for vitamin for 30 Days, TAB 0 Refills Oxycodone (Oxycodone) 10 Mg Tab 10 MG PO Q6H PRN for PAIN, #15 TAB 0 Refills Metoprolol Tartrate (Metoprolol Tartrate) 25 Mg Tab 12.5 MG PO Q12HR for a-fib for 30 Days, TAB 0 Refills Thiamine HCl (Gnp Vitamin B-1) 100 Mg Tab 100 MG PO DAILY for vitamin for 30 Days, TAB 0 Refills Continued Medications: Furosemide (Lasix) 40 Mg Tab 40 MG PO DAILY, #30 TAB 0 Refills Discontinued Medications: Amlodipine (Amlodipine) 5 Mg Tab 5 MG PO DAILY for Blood Pressure Management, #30 TAB 0 Refills Hydrocodone-Acetaminophen ([place]) 10-325 Mg Tab 1 TAB PO Q4H PRN for PAIN, #30 TAB 0 Refills Bradford White MD Mar 17, 2017 10:32
[2017-03-17 11:58] LABS: BICARBONATE 24.9 MEQ/L (21.0-32.0); POTASSIUM 3.6 MEQ/L (3.5-5.1)
[2017-03-17] MEDS: VANCOMYCIN INJ 1,500 MG in SODIUM CHLORID 0.9% 500 ML INJ 500 ML IV SCH (12:00)
--- NOTE | 2017-03-17 14:16 | HHI.PR ---
Addendum To [facility] Progress Not Reason for addendum: Additonal documentation (was notified by the RN that the patient had a fall- will hold dc planning-) Bradford White MD Mar 17, 2017 14:16
[2017-03-17] MEDS: LEVOFLOXACIN 500 MG TAB PO SCH (16:24)
[2017-03-17] MEDS: MULTIVITAMIN INJ 10 ML, FOLIC ACID INJ 1 MG in SODIUM CHLORID 0.9% 500 ML INJ 500 ML IV SCH (22:40)
[2017-03-17] MEDS: PANTOPRAZOLE SODIUM 40 MG VIAL IV PUSH SCH (22:40)
[2017-03-18] VITALS: BP 109/60; PULSE 84; RESP 16; TEMP 97.4; O2SAT 98
[2017-03-18 03:37] VITALS: BP 111/71; PULSE 73; RESP 16; TEMP 97.6; O2SAT 95
[2017-03-18] MEDS: RESP: IPRATROPIUM 0.5 MG/2.5 ML NEB NEB SCH ×3 (04:00→12:41)
[2017-03-18] MEDS ORDERED: PHARMACY ORDERED LAB ONE (05:45)
[2017-03-18] MEDS: DILTIAZEM HCL 30 MG TAB PO SCH ×2 (06:28→12:36)
[2017-03-18] MEDS: ACETAMINOPHEN/HYDROcodone 325 MG/10 MG TAB PO PRN (06:28)
[2017-03-18] MEDS: INSULIN NovoLIN REGULAR SUPPLEMENTAL SCALE SQ SCH ×2 (06:33→12:33)
[2017-03-18 08:00] VITALS: BP 128/74; PULSE 87; RESP 18; TEMP 97.7; O2SAT 98
[2017-03-18] MEDS: METOPROLOL TARTRATE 25 MG TAB PO SCH (08:06)
[2017-03-18] MEDS: LEVOFLOXACIN 500 MG TAB PO SCH (08:06)
[2017-03-18] MEDS: THIAMINE HCL 100 MG TAB PO SCH (08:06)
[2017-03-18] MEDS: ALBUMIN HUMAN 25% 25 GM/100 ML BAGP IV SCH (08:06)
[2017-03-18] MEDS: DOCUSATE SODIUM 50 MG/SENNA 8.6 MG TAB PO SCH (08:06)
[2017-03-18] MEDS: FUROSEMIDE 40 MG TAB PO SCH (08:07)
[2017-03-18] MEDS: guaiFENesin E.R. 600 MG TAB PO SCH (08:07)
[2017-03-18] MEDS: SODIUM CHLORIDE 0.9% FLUSH 10 ML FLUSH IV FLUSH SCH (08:12)
[2017-03-18] MEDS: RESP: BUDESONIDE 0.5 MG/2 ML NEB NEB SCH (08:29)
[2017-03-18 08:31] VITALS: O2SAT 95
[2017-03-18 12:00] VITALS: BP 110/67; PULSE 89; RESP 18; TEMP 98.2; O2SAT 94
--- NOTE | 2017-03-18 12:10 | HHI.PR ---
Subjective Remarks resting comfortably with no distress. no new complaints. awaiting discharge to rehab. Objective Vitals Vital Signs Date Time Temp Pulse Resp B/P (MAP) Pulse Ox O2 Delivery O2 Flow Rate FiO2 03/18/17 08:31 95 03/18/17 08:10 Room Air 03/18/17 08:00 97.7 87 18 128/74 (92) 98 03/18/17 03:37 97.6 73 16 111/71 (84) 95 03/18/17 00:00 97.4 84 16 109/60 (76) 98 03/17/17 23:20 95 21 03/17/17 20:15 Room Air 03/17/17 19:52 92 21 03/17/17 19:45 97.5 100 16 112/70 (84) 92 03/17/17 16:00 97.4 73 18 129/76 (93) 98 03/17/17 12:16 98.1 86 18 145/80 (101) 91 I/O 03/17/17 03/17/17 03/17/17 03/18/17 03/18/17 03/18/17 07:00 15:00 23:00 07:00 15:00 23:00 Intake Total 400 ml 960 ml 1090.2 ml Output Total 1300 ml 1200 ml 2250 ml Balance -900 ml -240 ml -1159.8 ml Intake Oral 300 ml 960 ml 480 ml IV Total 100 ml 610.2 ml Output Urine Total 1300 ml 1200 ml 2250 ml # Bowel Movements 1 0 0 Result Diagram: 03/16/17 1745 03/17/17 1114 Imaging Last Impressions Chest X-Ray 03/17/17 0600 Signed Impressions: Service Date/Time: February 06:25 - CONCLUSION: Stable chest Dino Lucero MD Abdomen/Pelvis CT 03/13/17 1305 Signed Impressions: Service Date/Time: Monday, March 13, 2017 17:07 - CONCLUSION: 1. Multiple splenic infarctions. 2. Cirrhosis and signs of portal venous hypertension not significantly changed. 3. There is passive congestion of the mesentery with edematous small and large bowel loops in addition to anasarca worse since the prior exam. Antoine Ramires MD Objective Remarks GENERAL: This is a well-nourished, well-developed patient, in no apparent distress. CARDIOVASCULAR: Regular rate and regular rhythm without murmurs, gallops, or rubs. RESPIRATORY: Clear to auscultation. Breath sounds equal bilaterally. No wheezes , rales, or rhonchi. GASTROINTESTINAL: Abdomen soft, non-tender, nondistended. Normal, active bowel sounds MUSCULOSKELETAL: Extremities with bilateral pedal edema. NEURO: Alert & Oriented x4 to person, place, time, situation. Moves all ext x4 Procedures none Medications and IVs Current Medications Morphine Sulfate (Morphine Inj) 2 mg ONCE ONCE IV PUSH Last administered on 13:39; Start 03/13/17 at 13:15; Stop 03/13/17 at 13:16; Status DC Ondansetron HCl (Zofran Inj) 4 mg ONCE ONCE IVP Last administered on 13:38; Start 03/13/17 at 13:15; Stop 03/13/17 at 13:16; Status DC Sodium Chloride 1,000 ml @ 1,000 mls/hr Q1H IV Last administered on 03/13/17 13:38; Start 03/13/17 at 13:05; Stop 03/13/17 at 14:04; Status DC Sodium Chloride (NS Flush) 2 ml UNSCH PRN IV FLUSH FLUSH AFTER USING IV ACCESS ; Start 03/13/17 at 13:15; Stop 03/13/17 at 19:22; Status DC Diltiazem HCl (Cardizem Inj) 20 mg ONCE ONCE IV Last administered on 14:02; Start 03/13/17 at 14:00; Stop 03/13/17 at 14:01; Status DC Diltiazem HCl 125 mg/Sodium Chloride 125 ml @ 0 mls/hr TITRATE IV Last administered on 03/14/17 22:50; Start 03/13/17 at 14:45; Stop 03/15/17 at 04:35 ; Status DC Piperacillin Sod/ Tazobactam Sod 100 ml @ 200 mls/hr ONCE ONCE IV Last administered on 03/13/17 17:13; Start 03/13/17 at 14:45; Stop 03/13/17 at 15:14 ; Status DC Azithromycin 500 mg/Sodium Chloride 250 ml @ 250 mls/hr ONCE ONCE IV Last administered on 03/13/17 17:56; Start 03/13/17 at 14:45; Stop 03/13/17 at 15:44 ; Status DC Albuterol/ Ipratropium (Duoneb Neb) 1 ampule ONCE ONCE INH Last administered on 03/13/17 14:49; Start 03/13/17 at 14:45; Stop 03/13/17 at 14:46; Status DC Sodium Chloride 1,000 ml @ 999 mls/hr BOLUS ONCE IV Last administered on 03/13 19:53; Start 03/13/17 at 16:30; Stop 03/13/17 at 17:30; Status DC Sodium Chloride 1,000 ml @ 999 mls/hr BOLUS ONCE IV ; Start 03/13/17 at 16:30 ; Stop 03/13/17 at 16:40; Status DC Vancomycin HCl 1000 mg/Sodium Chloride 250 ml @ 250 mls/hr ONCE ONCE IV Last administered on 03/13/17 17:25; Start 03/13/17 at 16:30; Stop 03/13/17 at 17:30 ; Status DC Metronidazole 100 ml @ 100 mls/hr ONCE ONCE IV Last administered on 19:15; Start 03/13/17 at 16:30; Stop 03/13/17 at 17:30; Status DC Iohexol (Omnipaque 350 Inj) 96 ml STK-MED ONCE IVCONTRAST Last administered on 03/13/17 17:15; Start 03/13/17 at 17:15; Stop 03/13/17 at 17:30; Status DC Furosemide (Lasix) 40 mg DAILY PO Last administered on 03/18/17 08:07; Start 03/14/17 at 09:00 Acetaminophen/ Hydrocodone Bitart ([place] 10-325 Mg) 1 tab Q4H PRN PO PAIN Last administered on 03/18/17 06:28; Start 03/13/17 at 18:15 Sodium Chloride 1,000 ml @ 100 mls/hr Q10H IV Last administered on 03/14/17 05:03; Start 03/13/17 at 18:10; Stop 03/14/17 at 13:10; Status DC Sodium Chloride (NS Flush) 2 ml UNSCH PRN IV FLUSH FLUSH AFTER USING IV ACCESS ; Start 03/13/17 at 18:15 Sodium Chloride (NS Flush) 2 ml BID IV FLUSH Last administered on 03/18/17 08: 12; Start 03/13/17 at 21:00 Acetaminophen (Tylenol) 650 mg Q4H PRN PO TEMP > 100.4; Start 03/13/17 at 18:15 Ondansetron HCl (Zofran Inj) 4 mg Q6H PRN IVP NAUSEA OR VOMITING Last administered on 03/15/17 05:28; Start 03/13/17 at 18:15 Naloxone HCl (Narcan Inj) 0.4 mg UNSCH PRN IV SEE LABEL COMMENTS; Start at 18:15 Senna/Docusate Sodium (Minna-Colace) 1 tab BID PO Last administered on 08:06; Start 03/13/17 at 21:00 Magnesium Hydroxide (Milk Of Magnesia Liq) 30 ml Q12H PRN PO MILD - MODERATE CONSTIPATION; Start 03/13/17 at 18:15 Sennosides (Senokot) 17.2 mg Q12H PRN PO MODERATE - SEVERE CONSTIPATION; Start 03/13/17 at 18:15 Bisacodyl (Dulcolax Supp) 10 mg DAILY PRN RECTAL SEVERE CONSITIPATION; Start at 18:15 Lactulose (Lactulose Liq) 30 ml DAILY PRN PO SEVERE CONSITIPATION; Start at 18:15 Pantoprazole Sodium (Protonix Inj) 40 mg Q24H IV PUSH Last administered on 03/17 22:40; Start 03/13/17 at 20:00 Ipratropium Supply (Atrovent Neb) 0.5 mg Q4HR NEB NEB Last administered on 08:29; Start 03/13/17 at 20:00 Budesonide (Pulmicort Respule Neb) 0.5 mg Q12HR NEB NEB Last administered on 08:29; Start 03/13/17 at 20:00 Guaifenesin (Mucinex Er) 600 mg BID PO Last administered on 03/18/17 08:07; Start 03/13/17 at 21:00 Multivitamins 10 ml/Folic Acid 1 mg/Sodium Chloride 510.2 ml @ 125 mls/hr Q24H IV Last administered on 03/17/17 22:40; Start 03/13/17 at 20:00; Stop at 19:59 Thiamine HCl 100 mg/Sodium Chloride 101 ml @ 100 mls/hr Q24H IV Last administered on 03/15/17 19:57; Start 03/13/17 at 20:00; Stop 03/16/17 at 19:59 ; Status DC Thiamine HCl (Vitamin B1) 100 mg DAILY PO Last administered on 03/18/17 08:06 ; Start 03/17/17 at 09:00 Flumazenil (Romazicon Inj) 0.2 mg Q1M PRN IV PUSH SEE LABEL COMMENTS; Start at 18:45 Lorazepam (Ativan Inj) 1 mg Q4H PRN IV PUSH CIWA 8 - 10; Start 03/13/17 at 18: 45 Lorazepam (Ativan Inj) 2 mg Q2H PRN IV PUSH CIWA 11-14; Start 03/13/17 at 18:45 Insulin Human Regular (NovoLIN R SUPPLEMENTAL SCALE) 1 ACHS SLIDING SCALE SQ Last administered on 03/18/17 06:33; Start 03/13/17 at 21:00 Albumin Human (Albumin 25% Inj) 25 gm Q12H IV Last administered on 03/18/17 08 :06; Start 03/13/17 at 20:00 Vancomycin HCl 1500 mg/Sodium Chloride 515 ml @ 257.5 mls/ hr ONCE ONCE IV ; Start 03/13/17 at 19:00; Stop 03/13/17 at 20:59; Status UNV Pharmacy Profile Note 0 ml @ 0 mls/hr UNSCH OTHER ; Start 03/13/17 at 19:00; Stop 03/17/17 at 14:16; Status DC Piperacillin Sod/ Tazobactam Sod 50 ml @ 100 mls/hr Q6H IV Last administered on 03/17/17 06:09; Start 03/13/17 at 23:00; Stop 03/17/17 at 14:16; Status DC Vancomycin HCl 1200 mg/Sodium Chloride 262 ml @ 250 mls/hr Q12H IV Last administered on 03/15/17 17:00; Start 03/14/17 at 03:00; Stop 03/15/17 at 20:06 ; Status DC Miscellaneous Information SPECIFIC LAB TO BE SEVERIANO... ONCE ONCE .XX Last administered on 03/15/17 16:59; Start 03/15/17 at 14:45; Stop 03/15/17 at 14:46 ; Status DC Metoprolol Tartrate (Lopressor) 12.5 mg Q12HR PO Last administered on 08:06; Start 03/14/17 at 21:00 Diltiazem HCl (Cardizem) 30 mg Q6HR PO Last administered on 03/18/17 06:28; Start 03/15/17 at 06:00 Vancomycin HCl 1100 mg/Sodium Chloride 261 ml @ 250 mls/hr Q12H IV Last administered on 03/16/17 03:51; Start 03/16/17 at 05:00; Stop 03/16/17 at 10:57 ; Status DC Miscellaneous Information SPECIFIC LAB TO BE DRAWN:VANCO TROUGH DATE TO BE DRMode ONCE ONCE .XX ; Start 03/16/17 at 16:45; Stop 03/16/17 at 16:46; Status Cancel Vancomycin HCl 1500 mg/Sodium Chloride 515 ml @ 250 mls/hr Q18H IV Last administered on 03/16/17 18:43; Start 03/16/17 at 18:00; Stop 03/17/17 at 14:16 ; Status DC Miscellaneous Information SPECIFIC LAB TO BE DRAWN:VANCOMYCIN TROUGH DATE TO... ONCE ONCE .XX ; Start 03/18/17 at 05:45; Stop 03/18/17 at 05:46; Status Cancel Levofloxacin (Levaquin) 500 mg DAILY PO Last administered on 03/18/17 08:06; Start 03/17/17 at 15:00 A/P Assessment and Plan A/P 1. Sepsis/Pneumonia in a patient recently hospitalized and discharged from this facility, new CXR showing Right basilar consolidation to continue Bronchodilator, Mucolytic, Incentive spirometry CT abdomen and Pelvis with Multiple splenic infarctions, Cirrhosis and signs of portal venous hypertension, passive congestion fo the mesentery with edematous small and large bowel loops, in addition to anasarca worse since the prior admission. Blood cultures negative, Negative Legionella antigen, Negative Pneumococcal antigen. continue antibiotics. repeated CXR stable. continue po levaquin. 2. EtOH Thiamine, Folate Multivitamins, CIWA protocol, strongly recommended to stop drinking alcohol. 3. CAD Atrial Fibrillation with RVR - now HR better controlled- continue Cardizem and metoprolol. continue to monitor. 4. Hypertension stable- will monitor. 5. Chronic Right Rib fractures 6. 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 INR 2. 7. DM II Sliding-scale insulin with Accu-Cheks to maintain euglycemia/low regimen, controlled. 8. Severe Thrombocytopenia secondary to underlying liver disease - will monitor. 9. History of Strep Viridans Endocarditis, history of T8/T9 Discitis 10- fall- d/w the patient and he agreed with rehab. Prophylaxis - GI - Protonix - DVT - SCD/pharmacological prophylaxis contraindicated secondary to thrombocytopenia/underlying coagulopathy Discharge Planning dc to rehab today. see med list. f/u with pcp. d/w the patient and previously with his daughter. d/w the case management. time spent 35 min. Bradford White MD Mar 18, 2017 12:09
== END 2017-03-18 14:46 | DRG 871 ==
LOC: NEPE 12:41 → NEDA 18:26 → N04B 23:49
PROVIDERS: ADMIT Internal Medicine; ATTEND Internal Medicine
DX: A41.9 Sepsis, unspecified organism (principal); J18.1 Lobar pneumonia, unspecified organism; E87.2 Acidosis; I11.0 Hypertensive heart disease with heart failure; D68.9 Coagulation defect, unspecified; I50.9 Heart failure, unspecified; D69.6 Thrombocytopenia, unspecified; M84.48XA Pathological fracture, other site, initial encounter for fracture; I48.91 Unspecified atrial fibrillation; K70.30 Alcoholic cirrhosis of liver without ascites; B19.20 Unspecified viral hepatitis C without hepatic coma; E11.9 Type 2 diabetes mellitus without complications; I25.2 Old myocardial infarction; I25.10 Atherosclerotic heart disease of native coronary artery without angina pectoris; I35.0 Nonrheumatic aortic (valve) stenosis; J45.909 Unspecified asthma, uncomplicated; M19.90 Unspecified osteoarthritis, unspecified site; Z86.73 Personal history of transient ischemic attack (TIA), and cerebral infarction without residual deficits; H40.9 Unspecified glaucoma; H91.90 Unspecified hearing loss, unspecified ear; M46.44 Discitis, unspecified, thoracic region; Z95.1 Presence of aortocoronary bypass graft; Z95.2 Presence of prosthetic heart valve; Z98.61 Coronary angioplasty status; Y95 Nosocomial condition
CPT/HCPCS: 71010; 71020; 74177; 76937; 80048; 80053; 80202; 80307; 81001; 82550; 82565; 82948; 83605; 83690; 83735; 84484; 85007; 85027; 85610; 85730; 87040; 87449; 93005; 94150; 94640; 94664; 96374; 96375; C9113; J0456; J2270; J2405; J2543; J3370; J3411; J7030; J7040; J7050; J7626; J7644; P9047; Q9967

== ENCOUNTER 2017-04-25 20:15 | Inpatient (IN) | payer OTHER, MEDICARE ==
[~2017-04-25] VITALS: Ht 185.4 cm; Wt 123.0 kg
[~2017-04-25 20:15] MED LIST changes: -AMLO5TAB2 PO; +CARD120C4 PO; +GNP100TA3 PO; -HYDR-3366 PO; +LEVA500T20 PO; +METO25TA3 PO; +MULT1TAB46 PO; +OXYC-395 PO
[2017-04-25 20:34] VITALS: BP 119/81; PULSE 77; RESP 20; TEMP 100.1; O2SAT 98
[2017-04-25] MEDS ORDERED: SODIUM CHLOR 0.9% 1000 ML INJ 1,000 ML IV ONE ×3 (20:36)
[2017-04-25] MEDS ORDERED: ACETAMINOPHEN 325 MG TAB PO ONE (20:45)
[2017-04-25 20:53] VITALS: RESP 20
--- NOTE | 2017-04-25 20:55 | PD ---
HPI . Chest pain Chief Complaint: Cardiac Complaint Time Seen by Provider: 20:20 Travel History International Travel<30 days: No Contact w/Intl Traveler<30days: No Traveled to known affect area: No History of Present Illness HPI This patient is deaf making history difficult. He has a family member here who is interpreting. He had the onset of nausea and vomiting at about 2 PM. He had the onset of chest pain at about 3 PM. He reports 3 episodes of emesis. He does report shortness of breath and states that he feels hot. No diaphoresis. He was found to be in AF with RVR by EMS and was treated with Cardizem. The patient told me that he did not have any improvement in symptoms with them. The patient was also given aspirin and nitroglycerin per EMS. Patient is noted to have a low-grade fever here. He has had emesis but no other symptoms to explain fever. 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) Glaucoma: Yes Genitourinary: No Hypertension: Yes Immune Disorder: No Implanted Vascular Access Dvce: Yes (picc line r arm ) Musculoskeletal: Yes (Arthritis ) Neurologic: No Psychiatric: No Reproductive: No Respiratory: Yes Immunizations Current: Yes Myocardial Infarction: Yes Pneumonia: Yes Radiation Therapy: No Sickle Cell Disease: No Sleep Apnea: No Thyroid Disease: No Influenza Vaccination: Yes Past Surgical History Abdominal Surgery: Yes (paracentesis) Appendectomy: Yes Cardiac Surgery: Yes (VALVE REPLACEMENT, CABG x3 ) Coronary Stent: Yes Ear Surgery: No Eye Surgery: No Genitourinary Surgery: No Gynecologic Surgery: No Neurologic Surgery: No Oral Surgery: No Thoracic Surgery: No Tonsillectomy: Yes Other Surgery: Yes (Paracentesis) Social History Alcohol Use: No Tobacco Use: No Substance Use: No (HX OF DRUG AND ALCOHOL ABUSE) Allergies-Medications (Allergen,Severity, Reaction): Coded Allergies: lisinopril (Unverified Allergy, Intermediate, 03/09/17) Reported Meds & Prescriptions Reported Meds & Active Scripts Active Multi Vitamin Daily (Multiple Vitamin) 1 Tab Tab 1 Tab PO DAILY 30 Days Oxycodone (Oxycodone HCl) 10 Mg Tab 10 Mg PO Q6H PRN Cardizem CD 24 HR (Diltiazem CD 24 HR) 120 Mg Caper 120 Mg PO DAILY 30 Days Gnp Vitamin B-1 (Thiamine HCl) 100 Mg Tab 100 Mg PO DAILY 30 Days Metoprolol Tartrate 25 Mg Tab 12.5 Mg PO Q12HR 30 Days Reported Lasix (Furosemide) 40 Mg Tab 40 Mg PO DAILY Review of Systems Except as stated in HPI: all other systems reviewed are Neg General / Constitutional: Positive: Fever, Other (feels hot) HENT: Positive: Neck Pain, No: Headaches, Sore Throat, Rhinorrhea, Congestion, Neck Stiffness Cardiovascular: Positive: Chest Pain or Discomfort Respiratory: Positive: Shortness of Breath, No: Cough Gastrointestinal: Positive: Nausea, Vomiting, No: Diarrhea, Abdominal Pain Genitourinary: No: Urgency, Frequency, Dysuria Musculoskeletal: No: Myalgias, Arthralgias Skin: No Rash Neurologic: No: Dizziness Physical Exam Narrative GENERAL: Patient is awake and alert and does not appear to be in any acute distress. He is deaf but appears to be able to read lips. SKIN: warm/dry. Hot to touch. Skin changes to the lower extremities compatible with chronic peripheral vascular disease. That is, skin is darkened. He also has some erythema of the right medial thigh consistent with cellulitis. HEAD: Normocephalic. Atraumatic. EYES: Pupils equal and round. Mild scleral icterus. No injection or drainage. ENT: No nasal bleeding or discharge. Mucous membranes dry. He NECK: Trachea midline. Full range of motion without pain.. He has some paraspinous muscle tenderness. However, the neck is supple. CARDIOVASCULAR: Irregularly irregular rate and rhythm. Rate at presentation was around 120. RESPIRATORY: No accessory muscle use. Clear to auscultation. Breath sounds equal bilaterally. GASTROINTESTINAL: Abdomen soft. Nontender. Bowel sounds present. Nondistended. MUSCULOSKELETAL: No obvious deformities. No edema. NEUROLOGICAL: Awake and alert. No obvious cranial nerve deficits. Motor grossly within normal limits. PSYCHIATRIC: Appropriate mood and affect; insight and judgment normal. Data Data Last Documented VS Vital Signs Date Time Temp Pulse Resp B/P (MAP) Pulse Ox O2 Delivery O2 Flow Rate FiO2 04/25/17 22:50 98.5 102 20 94/65 (75) 95 Nasal Cannula 2.00 Orders Orders Complete Blood Count With Diff (04/25/17 20:36) Comprehensive Metabolic Panel (04/25/17 20:36) Lactic Acid Sepsis Protocol (04/25/17 20:36) Ckmb (Isoenzyme) Profile (04/25/17 20:36) Urinalysis - C+S If Indicated (04/25/17 20:36) Influenzae A/B Antigen (04/25/17 20:36) Blood Culture (04/25/17 20:36) Chest, Single Ap (04/25/17 20:36) Ecg Monitoring (04/25/17 20:36) Iv Access Insert/Monitor (04/25/17 20:36) Cath For Specimen (04/25/17 20:36) Oximetry (04/25/17 20:36) Acetaminophen (Tylenol) (04/25/17 20:45) Sodium Chlor 0.9% 1000 Ml Inj (Ns 1000 M (04/25/17 20:36) Sodium Chlor 0.9% 1000 Ml Inj (Ns 1000 M (04/25/17 20:36) Sodium Chlor 0.9% 1000 Ml Inj (Ns 1000 M (04/25/17 20:36) Troponin I (04/25/17 20:40) Blood Culture (04/25/17 21:00) Diltiazem Inj (Cardizem Inj) (04/25/17 21:15) Diltiazem Inj (Cardizem Inj) (04/25/17 21:45) Cefepime Inj (Maxipime Inj) (04/25/17 23:00) Vancomycin Inj (Vancomycin Inj) (04/25/17 23:00) Gentamicin 80 Mg Premix (Gentamicin 80 M (04/25/17 23:00) Gentamicin 80 Mg Premix (Gentamicin 80 M (04/25/17 22:59) Labs Laboratory Tests Test 04/25/17 20:45 04/25/17 22:45 White Blood Count 8.9 TH/MM3 Red Blood Count 3.15 MIL/MM3 Hemoglobin 12.1 GM/DL Hematocrit 35.8 % Mean Corpuscular Volume 113.6 FL Mean Corpuscular Hemoglobin 38.5 PG Mean Corpuscular Hemoglobin Concent 33.9 % Red Cell Distribution Width 15.2 % Platelet Count 67 TH/MM3 Mean Platelet Volume 8.9 FL Neutrophils (%) (Auto) 88.1 % Lymphocytes (%) (Auto) 6.5 % Monocytes (%) (Auto) 4.1 % Eosinophils (%) (Auto) 0.5 % Basophils (%) (Auto) 0.8 % Neutrophils # (Auto) 7.8 TH/MM3 Lymphocytes # (Auto) 0.6 TH/MM3 Monocytes # (Auto) 0.4 TH/MM3 Eosinophils # (Auto) 0.0 TH/MM3 Basophils # (Auto) 0.1 TH/MM3 CBC Comment AUTO DIFF Differential Total Cells Counted 100 Neutrophils % (Manual) 84 % Band Neutrophils % 11 % Lymphocytes % 1 % Monocytes % 4 % Neutrophils # (Manual) 8.5 TH/MM3 Differential Comment FINAL DIFF MANUAL Platelet Estimate LOW Platelet Morphology Comment NORMAL Blood Urea Nitrogen 11 MG/DL Creatinine 0.90 MG/DL Random Glucose 91 MG/DL Total Protein 7.0 GM/DL Albumin 2.3 GM/DL Calcium Level 8.2 MG/DL Alkaline Phosphatase 130 U/L Aspartate Amino Transf (AST/SGOT) 73 U/L Alanine Aminotransferase (ALT/SGPT) 30 U/L Total Bilirubin 5.3 MG/DL Sodium Level 142 MEQ/L Potassium Level 3.4 MEQ/L Chloride Level 106 MEQ/L Carbon Dioxide Level 25.8 MEQ/L Anion Gap 10 MEQ/L Estimat Glomerular Filtration Rate 85 ML/MIN Lactic Acid Level 3.7 mmol/L Total Creatine Kinase 50 U/L Urine Color YELLOW Urine Turbidity CLEAR Urine pH 7.0 Urine Specific Orange 1.015 Urine Protein 300 mg/dL Urine Glucose (UA) NEG mg/dL Urine Ketones NEG mg/dL Urine Occult Blood MOD Urine Nitrite NEG Urine Bilirubin SMALL Urine Urobilinogen 2.0 MG/DL Urine Leukocyte Esterase NEG Urine RBC 32 /hpf Urine WBC 3 /hpf Urine Squamous Epithelial Cells 1 /hpf Urine Amorphous Sediment RARE Urine Hyaline Casts 1 /lpf Urine Mucus FEW /lpf Microscopic Urinalysis Comment CATH-CULT NOT IND MDM Medical Decision Making Medical Screen Exam Complete: Yes Emergency Medical Condition: Yes Medical Record Reviewed: Yes (medical history is significant for A. fib, previous nonsustained V. tach, diabetes, hypertension, alcoholic cirrhosis, hepatitis C and previous aortic valve replacement.) Interpretation(s) EKG shows atrial fibrillation with a rate of 118. No acute ischemic changes. Unchanged from previous. Differential Diagnosis Differential diagnosis of chest pain includes but is not limited to musculoskeletal pain, pulmonary embolism, acute coronary syndrome, pneumonia, pleurisy Differential diagnosis of fever includes but is not limited to viral illness, strep throat, otitis media, pneumonia, sepsis, UTI Narrative Course This patient presents with the chief complaint of chest pain. He was found to be in AF with RVR by EMS and treated with Cardizem. Heart rate slowed with Cardizem. Patient was also found to have a low-grade fever. He has an artificial aortic valve. SBE must be ruled out. CBC & BMP Diagram 04/25/17 20:45 Total Protein 7.0, Albumin 2.3 L, Calcium Level 8.2 L, Alkaline Phosphatase 130 H, Aspartate Amino Transf (AST/SGOT) 73 H, Alanine Aminotransferase (ALT/SGPT) 30, Total Bilirubin 5.3 H CXR>>Cardiomegaly. There is a possible mild right effusion. He has a bandemia with 11% bands. He also has a lactic acidosis with a level of 3.7. UA is negative for infection. This patient has a history of a prosthetic aortic valve. He has a fever. I have treated him empirically for SBE with cefepime, vancomycin and gentamicin. He was also in atrial fibrillation with a rapid ventricular response. He was treated initially with a Cardizem bolus per EMS. The tachycardia persisted so he was given a second bolus followed by a drip. For these reasons, the patient needs to be admitted to the hospital. Critical Care Narrative Aggregate critical care time was 45 minutes. Time to perform other separately billable procedures was not included in the critical care time. My time did not include minutes spent treating any other patients simultaneously or on activities that did not directly contribute to the patient's treatment. The services I provided to this patient were to treat and/or prevent clinically significant deterioration due to AF with RVR, possible sepsis I provided critical care services requiring my management, as noted below: Chart data review, documentation time, medication orders and management, vital sign assessments/reviewing monitor data, ordering and reviewing lab tests, ordering and interpreting/reviewing x-rays and diagnostic studies, care of the patient and discussion of the patient with the admitting physicians Sepsis Criteria SIRS Criteria (2 or more): Heart rate over [address] Phys[address] Communication Dr. Gaspar feels that the patient needs to be admitted to the web administrator. Dr. Gallegos will admit. Diagnosis Primary Impression: Atrial fibrillation with RVR Additional Impressions: Fever Qualified Codes: R50.9 - Fever, unspecified S/P TAVR (transcatheter aortic valve replacement) Admitting Information Admitting Physician Requests: Admit Condition: Stable Madelin Galaviz MD Apr 25, 2017 20:55
[2017-04-25 21:25] LABS: AUTOMATED NEUTROPHIL # 7.8 TH/MM3 (1.8-7.7); BASOPHIL # 0.1 TH/MM3 (0-0.2); BASOPHIL % 0.8 % (0.0-2.0); EOSINOPHIL % 0.5 % (0.0-4.0); HEMATOCRIT 35.8 % (39.0-51.0); LYMPH % 6.5 % (9.0-44.0); LYMPHOCYTE # 0.6 TH/MM3 (1.0-4.8); MEAN CELL VOLUME 113.6 FL (80.0-100.0); MEAN CORPUSCULAR HEMOGLOBIN 38.5 PG (27.0-34.0); MEAN CORPUSCULAR HGB CONC 33.9 % (32.0-36.0); MONO % 4.1 % (0.0-8.0); NEUT % 88.1 % (16.0-70.0); PLATELET COUNT 67 TH/MM3 (150-450); RED BLOOD COUNT 3.15 MIL/MM3 (4.50-5.90); RED CELL DISTRIBUTION WIDTH 15.2 % (11.6-17.2); WHITE BLOOD COUNT 8.9 TH/MM3 (4.0-11.0)
[2017-04-25 21:28] LABS: HEMO FLAGS AUTO DIFF
[2017-04-25] MEDS ORDERED: DILTIAZEM HCL 50 MG/10 ML VIAL IV PUSH ONE (21:45)
[2017-04-25 21:50] LABS: ALT (GPT) 30 U/L (12-78); ANION GAP 10 MEQ/L (5-15); AST (GOT) 73 U/L (15-37); BICARBONATE 25.8 MEQ/L (21.0-32.0); BLOOD UREA NITROGEN 11 MG/DL (7-18); CHLORIDE 106 MEQ/L (98-107); GLOMERULAR FILTRATION RATE 85 ML/MIN (>89); POTASSIUM 3.4 MEQ/L (3.5-5.1); SODIUM (NA) 142 MEQ/L (136-145)
--- NOTE | 2017-04-25 21:52 | RADRPT ---
EXAM DATE/TIME: 04/25/2017 20:39 [facility] COMPARISON: CHEST PA & LAT, March 15, 2017, 8:52. CHEST SINGLE AP, March 17, 2017, 6:25. INDICATIONS : Chest pain. MEDICAL HISTORY : Hypertension. Diabetes mellitus type II. Congestive heart failure. SURGICAL HISTORY : None. ENCOUNTER: Initial ACUITY: 1 day PAIN SCORE: 10/10 LOCATION: Bilateral chest FINDINGS: The heart size mildly enlarged. There is a stent seen over the aortic valve region. The lungs are gr ossly clear. There some minimal blunting of the right cusp angle and a mild right effusion cannot be excluded. CONCLUSION: Cardiomegaly. There is a possible mild right effusion. Fortino Woodson MD on April 25, 2017 at 21:49 Board Certified Radiologist. This report was verified electronically.
[2017-04-25 21:53] LABS: ALKALINE PHOSPHATASE 130 U/L (45-117); TOTAL BILIRUBIN ADULT 5.3 MG/DL (0.2-1.0)
[2017-04-25] MEDS: DILTIAZEM INJ 125 MG in SODIUM CHLORIDE 0.9% INJ 100 ML IV PRN (21:58)
[2017-04-25 22:05] LABS: BANDS 11 % (0-6); NEUTROPHIL # MANUAL DIFF 8.5 TH/MM3 (1.8-7.7); POLYS (SEG NEUTROPHILS) 84 % (16-70); WBC DIFF SAMPLE 100
[2017-04-25 22:06] LABS: PLATELET ESTIMATE SMEAR LOW (NORMAL); PLATELET MORPHOLOGY NORMAL (NORMAL); SCAN/DIFF FINAL DIFF MANUAL
[2017-04-25 22:14] LABS: CREATINE KINASE 50 U/L (39-308)
[2017-04-25 22:50] VITALS: BP 94/65; PULSE 102; RESP 20; TEMP 98.5; O2SAT 95
[2017-04-25 22:55] LABS: BLOOD, URINE MOD (NEG); GLUCOSE,URINE NEG (NEG); HYALINE CAST, URINE 1 /lpf (RARE); KETONE, URINE NEG (NEG); MUCUS URINE FEW /lpf (OCC); NITRITE,URINE NEG (NEG); SQUAMOUS EPITHELIAL CELL URINE 1 /hpf (0-5); URINE COLOR YELLOW (YELLW/STRAW)
[2017-04-25] MEDS ORDERED: GENTAMICIN 80 MG PREMIX 100 ML ONE (22:59)
[2017-04-25 23:00] LABS: COMMENT (UR) CATH-CULT NOT IND; CULTURE IF INDICATED CATH CULTURE NOT IND
[2017-04-25] MEDS ORDERED: GENTAMICIN 80 MG PREMIX 100 ML IV ONE (23:00)
[2017-04-25] MEDS ORDERED: VANCOMYCIN INJ 1,000 MG in SODIUM CHLOR 0.9% 250 ML INJ 250 ML IV ONE (23:00)
[2017-04-25] MEDS ORDERED: CEFEPIME INJ 2,000 MG in SODIUM CHLORIDE 0.9% INJ 100 ML IV ONE (23:00)
[2017-04-25 23:06] LABS: LACTIC ACID GHOST NOT REPORTABLE
[2017-04-25] MEDS ORDERED: SODIUM CHLOR 0.9% 1000 ML INJ 1,000 ML IV SCH (23:37)
--- NOTE | 2017-04-25 23:37 | HHI.HP ---
HPI Service Critical Care Medicine Primary Care Physician No Primary Care Physician Admission Diagnosis AF with RVR, fever, lactic acidosis, bandemia Diagnosis: Travel History International Travel<30 Days: No Contact w/Intl Traveler <30 Da: No Traveled to Known Affected Are: No History of Present Illness 66-year-old deaf gentleman presents after he had the onset of nausea and vomiting at about 2 PM. He had the onset of chest pain at about 3 PM. He reports 3 episodes of emesis. He also some shortness of breath and states that he feels hot. No diaphoresis. He was found to be in AF with RVR by EMS and was treated with Cardizem. He was also given aspirin and nitroglycerin per EMS. In the emergency department he was found to have a low-grade fever as well. Review of Systems Constitutional: COMPLAINS OF: Fever, Dizziness, DENIES: Diaphoretic episodes, Fatigue, Weight gain, Weight loss, Chills, Change in appetite, Night Sweats Endocrine: DENIES: Heat/cold intolerance, Polydipsia, Polyuria, Polyphagia Eyes: DENIES: Blurred vision, Diplopia, Eye inflammation, Eye pain, Vision loss , Photosensitivity, Double Vision Ears, nose, mouth, throat: DENIES: Tinnitus, Hearing loss, Vertigo, Nasal discharge, Oral lesions, Throat pain, Hoarseness, Ear Pain, Running Nose, Epistaxis, Sinus Pain, Toothache, Odynophagia Respiratory: COMPLAINS OF: Shortness of breath, DENIES: Apneas, Cough, Snoring , Wheezing, Hemoptysis, Sputum production Cardiovascular: COMPLAINS OF: Chest pain, Palpitations, Dyspnea on Exertion, DENIES: Syncope, PND, Lower Extremity Edema, Orthopnea, Claudication Gastrointestinal: COMPLAINS OF: Nausea, Vomiting, DENIES: Abdominal pain, Black stools, Bloody stools, Constipation, Diarrhea, Difficulty Swallowing, Anorexia Genitourinary: DENIES: Sexual dysfunction, Urinary frequency, Urinary incontinence, Urgency, Hematuria, Dysuria, Nocturia, Penile Discharge, Testicular Pain, Testicular Swelling Musculoskeletal: DENIES: Joint pain, Muscle aches, Stiffness, Joint Swelling, Back pain, Neck pain Integumentary: DENIES: Abnormal pigmentation, Nail changes, Pruritus, Rash Hematologic/lymphatic: DENIES: Bruising, Lymphadenopathy Immunologic/allergic: DENIES: Eczema, Urticaria Neurologic: DENIES: Abnormal gait, Headache, Localized weakness, Paresthesias, Seizures, Speech Problems, Tremor, Poor Balance Psychiatric: DENIES: Anxiety, Confusion, Mood changes, Depression, Hallucinations, Agitation, Suicidal Ideation, Homicidal Ideation, Delusions Past Family Social History Allergies: Coded Allergies: lisinopril (Unverified Allergy, Intermediate, 03/09/17) Past Medical History OA Asthma Atrial Fibrillation with RVR PCI history of CAD CHF by history CVA on 2004 DM II Deaf Glaucoma Cirrhosis Hypertension Past Surgical History Paracentesis Appendectomy Valve replacement, CABG x 3 Tonsillectomy Reported Medications Reported Meds & Active Scripts Active Multi Vitamin Daily (Multiple Vitamin) 1 Tab Tab 1 Tab PO DAILY 30 Days Oxycodone (Oxycodone HCl) 10 Mg Tab 10 Mg PO Q6H PRN Cardizem CD 24 HR (Diltiazem CD 24 HR) 120 Mg Caper 120 Mg PO DAILY 30 Days Gnp Vitamin B-1 (Thiamine HCl) 100 Mg Tab 100 Mg PO DAILY 30 Days Metoprolol Tartrate 25 Mg Tab 12.5 Mg PO Q12HR 30 Days Reported Lasix (Furosemide) 40 Mg Tab 40 Mg PO DAILY Active Ordered Medications Current Medications Medications (Trade) Dose Ordered Sig/Blaire Route PRN Reason Start Time Stop Time Status Last Admin Dose Admin Diltiazem HCl 125 mg/Sodium Chloride 125 ml @ 5 mls/hr TITRATE PRN IV tachycardia 04/25/17 21:15 04/25/17 21:58 Diltiazem HCl (Cardizem Cd) 120 mg DAILY PO 04/26/17 09:00 Metoprolol Tartrate (Lopressor) 12.5 mg Q12HR PO 04/26/17 09:00 Oxycodone HCl (Roxicodone) 10 mg Q6H PRN PO PAIN 04/25/17 23:30 Thiamine HCl (Vitamin B1) 100 mg DAILY PO 04/26/17 09:00 Multivitamins (Theragran) 1 tab DAILY PO 04/26/17 09:00 Sodium Chloride 1,000 ml @ 84 mls/hr [id number] IV 04/25/17 23:37 04/26/17 00:38 Sodium Chloride (NS Flush) 2 ml UNSCH PRN IV FLUSH FLUSH AFTER USING IV ACCESS 04/25/17 23:45 Sodium Chloride (NS Flush) 2 ml BID IV FLUSH 04/26/17 09:00 Acetaminophen (Tylenol) 650 mg Q6H PRN PO PAIN 1-10 AND/OR FEVER >101F 04/25/17 23:45 Acetaminophen/ Hydrocodone Bitart ([employer] 5-325 Mg) 1 tab Q4H PRN PO PAIN SCALE 1 TO 5 04/25/17 23:45 Morphine Sulfate (Morphine Inj) 2 mg Q2H PRN IV PUSH PAIN SCALE 6 TO 10 04/25/17 23:45 Famotidine (Pepcid) 20 mg Q12HR PO 04/26/17 09:00 Lorazepam (Ativan Inj) 1 mg Q1H PRN IV PUSH Agitation/Sedation 04/25/17 23:45 Ondansetron HCl (Zofran Inj) 4 mg Q6H PRN IV PUSH NAUSEA OR VOMITING 04/25/17 23:45 Zolpidem Tartrate (Ambien) 5 mg HS PRN PO INSOMNIA 04/25/17 23:45 Albuterol/ Ipratropium (Duoneb Neb) 1 ampule Q2HR NEB PRN INH WHEEZING 04/25/17 23:45 Heparin Sodium (Porcine) (Heparin Inj) 5,000 units Q8H SQ 04/25/17 23:45 04/26/17 00:39 Miscellaneous Information 1 [id number] XX 04/25/17 23:45 Chlorhexidine Gluconate (Chlorhexidine 2% Cloth) 3 pack Taper DAILY@04 TOP 04/26/17 04:00 04/22/18 03:59 04/26/17 02:58 Chlorhexidine Gluconate (Chlorhexidine 2% Cloth) 3 pack UNSCH PRN TOP HYGIENIC CARE 04/25/17 23:45 Senna/Docusate Sodium (Minna-Colace) 1 tab BID PO 04/26/17 09:00 Magnesium Hydroxide (Milk Of Magnesia Liq) 30 ml Q12H PRN PO MILD - MODERATE CONSTIPATION 04/25/17 23:45 Sennosides (Senokot) 17.2 mg Q12H PRN PO MODERATE - SEVERE CONSTIPATION 04/25/17 23:45 Bisacodyl (Dulcolax Supp) 10 mg DAILY PRN RECTAL SEVERE CONSITIPATION 04/25/17 23:45 Lactulose (Lactulose Liq) 30 ml DAILY PRN PO SEVERE CONSITIPATION 04/25/17 23:45 Cefepime HCl 2000 mg/Sodium Chloride 100 ml @ 200 mls/hr Q8H IV 04/27/17 08:00 Vancomycin HCl 1000 mg/Sodium Chloride 250 ml @ 250 mls/hr DAILY@0100 IV 04/27/17 01:00 04/27/17 04:00 Pharmacy Profile Note 0 ml @ 0 mls/hr UNSCH OTHER 04/25/17 23:45 Family History Positive for EtOH with father. No history of coronary artery disease. Social History Remote History of Drug and alcohol abuse Physical Exam Vital Signs Vital Signs Date Time Temp Pulse Resp B/P (MAP) Pulse Ox O2 Delivery O2 Flow Rate FiO2 04/25/17 22:50 98.5 102 20 94/65 (75) 95 Nasal Cannula 2.00 04/25/17 21:58 121 133/86 04/25/17 20:53 105 96 Nasal Cannula 2.00 04/25/17 20:53 20 Nasal Cannula 04/25/17 20:34 100.1 77 20 119/81 (94) 98 Physical Exam GENERAL: Well-nourished, well-developed patient. SKIN: Warm and dry. HEAD: Normocephalic. EYES: No scleral icterus. No injection or drainage. NECK: Supple, trachea midline. No JVD or lymphadenopathy. CARDIOVASCULAR: Regular rate and rhythm without murmurs, gallops, or rubs. RESPIRATORY: Breath sounds equal bilaterally. No accessory muscle use. GASTROINTESTINAL: Abdomen soft, non-tender, nondistended. MUSCULOSKELETAL: No cyanosis, or edema. BACK: Nontender without obvious deformity. NEURO EXAM: Mental Status: The patient is alert and oriented to person, place, and time. Cranial Nerves:Pupils are round, reactive to light. Reflexes: Biceps, patellar, and Achilles are 2/4 bilaterally. No clonus. Laboratory Laboratory Tests Test 04/25/17 20:45 04/25/17 22:45 White Blood Count 8.9 Red Blood Count 3.15 Hemoglobin 12.1 Hematocrit 35.8 Mean Corpuscular Volume 113.6 Mean Corpuscular Hemoglobin 38.5 Mean Corpuscular Hemoglobin Concent 33.9 Red Cell Distribution Width 15.2 Platelet Count 67 Mean Platelet Volume 8.9 Neutrophils (%) (Auto) 88.1 Lymphocytes (%) (Auto) 6.5 Monocytes (%) (Auto) 4.1 Eosinophils (%) (Auto) 0.5 Basophils (%) (Auto) 0.8 Neutrophils # (Auto) 7.8 Lymphocytes # (Auto) 0.6 Monocytes # (Auto) 0.4 Eosinophils # (Auto) 0.0 Basophils # (Auto) 0.1 CBC Comment AUTO DIFF Differential Total Cells Counted 100 Neutrophils % (Manual) 84 Band Neutrophils % 11 Lymphocytes % 1 Monocytes % 4 Neutrophils # (Manual) 8.5 Differential Comment FINAL DIFF MANUAL Platelet Estimate LOW Platelet Morphology Comment NORMAL Blood Urea Nitrogen 11 Creatinine 0.90 Random Glucose 91 Total Protein 7.0 Albumin 2.3 Calcium Level 8.2 Alkaline Phosphatase 130 Aspartate Amino Transf (AST/SGOT) 73 Alanine Aminotransferase (ALT/SGPT) 30 Total Bilirubin 5.3 Sodium Level 142 Potassium Level 3.4 Chloride Level 106 Carbon Dioxide Level 25.8 Anion Gap 10 Estimat Glomerular Filtration Rate 85 Lactic Acid Level 3.7 Total Creatine Kinase 50 Urine Color YELLOW Urine Turbidity CLEAR Urine pH 7.0 Urine Specific [place] 1.015 Urine Protein 300 Urine Glucose (UA) NEG Urine Ketones NEG Urine Occult Blood MOD Urine Nitrite NEG Urine Bilirubin SMALL Urine Urobilinogen 2.0 Urine Leukocyte Esterase NEG Urine RBC 32 Urine WBC 3 Urine Squamous Epithelial Cells 1 Urine Amorphous Sediment RARE Urine Hyaline Casts 1 Urine Mucus FEW Microscopic Urinalysis Comment CATH-CULT NOT IND Date/Time Source Procedure Growth Status 04/25/17 23:00 Blood Peripheral Aerobic Blood Culture Pending Received 04/25/17 23:00 Blood Peripheral Anaerobic Blood Culture Pending Received 04/25/17 20:45 Nasal Washing Influenza Types A,B Antigen (ANICETO) - Final NEGATIVE FOR FLU A AND B ANTIGEN.... Complete Result Diagram: 04/25/17204404/25/172044 Caprini VTE Risk Assessment Caprini VTE Risk Assessment: Mod/High Risk (score >= 2) Caprini Risk Assessment Model Point Value = 1 Point Value = 2 Point Value = 3 Point Value = 5 Age 41-60 Minor surgery BMI > 25 kg/m2 Swollen legs Varicose veins or History of unexplained or recurrent spontaneous Oral contraceptives or hormone replacement Sepsis (< 1 month) Serious lung disease, including pneumonia (< 1 month) Abnormal pulmonary function Acute myocardial infarction Congestive heart failure (< 1 month) History of inflammatory bowel disease Medical patient at bed rest Age 61-74 Arthroscopic surgery Major open surgery (> 45 min) Laparoscopic surgery (> 45 min) Malignancy Confined to bed (> 72 hours) Immobilizing plaster cast Central venous access Age >= 75 History of VTE Family history of VTE Factor V Leiden Prothrombin [id number] Lupus anticoagulant Anticardiolipin antibodies Elevated serum homocysteine Heparin-induced thrombocytopenia Other congenital or acquired thrombophilia Stroke (< 1 month) Elective arthroplasty Hip, pelvis, or leg fracture Acute spinal cord injury (< 1 month) Prophylaxis Regimen Total Risk Factor Score Risk Level Prophylaxis Regimen 0-1 Low Early ambulation 2 Moderate Order ONE of the following: *Sequential Compression Device (SCD) *Heparin 5000 units SQ BID 3-4 Higher Order ONE of the following medications: *Heparin 5000 units SQ TID *Enoxaparin/Lovenox 40 mg SQ daily (WT < 150 kg, CrCl > 30 mL/min) *Enoxaparin/Lovenox 30 mg SQ daily (WT < 150 kg, CrCl > 10-29 mL/min) *Enoxaparin/Lovenox 30 mg SQ BID (WT < 150 kg, CrCl > 30 mL/min) AND/OR *Sequential Compression Device (SCD) 5 or more Highest Order ONE of the following medications: *Heparin 5000 units SQ TID (Preferred with Epidurals) *Enoxaparin/Lovenox 40 mg SQ daily (WT < 150 kg, CrCl > 30 mL/min) *Enoxaparin/Lovenox 30 mg SQ daily (WT < 150 kg, CrCl > 10-29 mL/min) *Enoxaparin/Lovenox 30 mg SQ BID (WT < 150 kg, CrCl > 30 mL/min) AND *Sequential Compression Device (SCD) Assessment and Plan Assessment and Plan A. fib with RVR - Cardizem drip - Series of troponins - Series of EKGs - 2-D echo - Hold anticoagulation due to thrombocytopenia, 54 Elevated troponin - No ST changes on EKG - Cardiology consult - 2-D echo - Aspirin - Atorvastatin - Hold anticoagulation due to severe thrombocytopenia Fever with tachycardia and bandemia - Broad-spectrum antibiotic - Pancultures - De-escalate per sensitivity Diabetes - Insulin sliding scale Thrombocytopenia - Underlying liver cirrhosis - Monitor trend transfuse for platelets less than 20 Liver cirrhosis - Supportive care DVT GI prophylaxis - Teds SCDs - Hold pharmacological DVT prophylaxis due to severe thrombocytopenia - Pepcid Critical Care: The total critical care time was 35 minutes. Time to perform other separately billable procedures was not included in the critical care time. Ramon Gallegos MD Apr 25, 2017 23:37
[2017-04-25] MEDS ORDERED: MAGNESIUM HYDROXIDE SUSP 30 ML CUP PO PRN (23:45)
[2017-04-25] MEDS ORDERED: CHLORHEXIDINE GLUCONATE 2 % 1 PACK (2 CLOTHS) TOP PRN (23:45)
[2017-04-25] MEDS ORDERED: ONDANSETRON HCL 4 MG/2 ML VIAL IV PUSH PRN (23:45)
[2017-04-25] MEDS ORDERED: Vancomycin Consult Pharmacy 1 EA OTHER SCH (23:45)
[2017-04-25] MEDS ORDERED: RESP: ALBUTEROL 2.5 MG/IPRATROPIUM 0.5 MG NEB (PRN) INH (23:45)
[2017-04-25] MEDS ORDERED: LORazepam 2 MG/ML VIAL IV PUSH PRN (23:45)
[2017-04-25] MEDS ORDERED: ACETAMINOPHEN 325 MG TAB PO PRN (23:45)
[2017-04-25] MEDS ORDERED: MISCELLANEOUS NURSING INFORMATION XX SCH (23:45)
[2017-04-25] MEDS ORDERED: ZOLPIDEM TARTRATE 5 MG TAB PO PRN (23:45)
[2017-04-25] MEDS ORDERED: BISACODYL 10 MG SUPP RECTAL PRN (23:45)
[2017-04-25] MEDS ORDERED: SENNOSIDES 8.6 MG TAB PO PRN (23:45)
[2017-04-25] MEDS ORDERED: SODIUM CHLORIDE 0.9% FLUSH 10 ML FLUSH IV FLUSH PRN (23:45)
[2017-04-25] MEDS ORDERED: ACETAMINOPHEN/HYDROcodone 325 MG/5 MG TAB PO PRN (23:45)
[2017-04-25] MEDS ORDERED: HEPARIN SODIUM - SQ 10,000 UNITS/ML VIAL SQ SCH (23:45)
[2017-04-25] MEDS ORDERED: LACTULOSE SYRUP 20 GM/30 ML CUP PO PRN (23:45)
[2017-04-26] VITALS (16 sets, daily range): BP systolic 85–134; BP diastolic 59–75; PULSE 82–120; RESP 20–28; TEMP 97.6–98.7; O2SAT 92–100
[2017-04-26] MEDS ORDERED: SODIUM CHLOR 0.9% 1000 ML INJ 1,000 ML IV ONE
[2017-04-26] MEDS: CHLORHEXIDINE GLUCONATE 2 % 1 PACK (2 CLOTHS) TOP SCH (02:58)
[2017-04-26 04:03] LABS: AUTOMATED NEUTROPHIL # 9.8 TH/MM3 (1.8-7.7); BASOPHIL # 0.1 TH/MM3 (0-0.2); BASOPHIL % 0.5 % (0.0-2.0); EOSINOPHIL % 0.1 % (0.0-4.0); HEMATOCRIT 33.8 % (39.0-51.0); LYMPH % 4.3 % (9.0-44.0); LYMPHOCYTE # 0.5 TH/MM3 (1.0-4.8); MEAN CELL VOLUME 115.2 FL (80.0-100.0); MEAN CORPUSCULAR HEMOGLOBIN 39.2 PG (27.0-34.0); MONO % 4.3 % (0.0-8.0); NEUT % 90.8 % (16.0-70.0); PLATELET COUNT 54 TH/MM3 (150-450); RED BLOOD COUNT 2.93 MIL/MM3 (4.50-5.90); RED CELL DISTRIBUTION WIDTH 15.3 % (11.6-17.2); WHITE BLOOD COUNT 10.8 TH/MM3 (4.0-11.0)
[2017-04-26 04:06] LABS: HEMO FLAGS AUTO DIFF
[2017-04-26 04:14] LABS: INTERNATIONAL NORMALIZED RATIO 1.5 RATIO; PROTHROMBIN TIME - PATIENT 17.4 SEC (9.8-11.6)
[2017-04-26 04:31] LABS: ALT (GPT) 33 U/L (12-78); ANION GAP 8 MEQ/L (5-15); AST (GOT) 68 U/L (15-37); BICARBONATE 26.5 MEQ/L (21.0-32.0); BLOOD UREA NITROGEN 11 MG/DL (7-18); CHLORIDE 106 MEQ/L (98-107); GLOMERULAR FILTRATION RATE 74 ML/MIN (>89); MAGNESIUM 1.7 MG/DL (1.5-2.5); POTASSIUM 3.5 MEQ/L (3.5-5.1); SODIUM (NA) 140 MEQ/L (136-145)
[2017-04-26 04:34] LABS: ALKALINE PHOSPHATASE 112 U/L (45-117); TOTAL BILIRUBIN ADULT 6.1 MG/DL (0.2-1.0)
[2017-04-26] MEDS ORDERED: GLUCAGON 1 MG/ML VIAL OTHER PRN (05:45)
[2017-04-26] MEDS ORDERED: DEXTROSE 50% IN WATER 50 ML VIAL(D50) IV PUSH PRN (05:45)
[2017-04-26] MEDS ORDERED: ENOXAPARIN SODIUM 120 MG/0.8 ML SYRINGE SQ SCH (06:00)
[2017-04-26 06:51] LABS: BANDS 20 % (0-6); NEUTROPHIL # MANUAL DIFF 10.6 TH/MM3 (1.8-7.7); PLATELET ESTIMATE SMEAR LOW (NORMAL); PLATELET MORPHOLOGY NORMAL (NORMAL); POLYS (SEG NEUTROPHILS) 78 % (16-70); WBC DIFF SAMPLE 100
[2017-04-26 06:54] LABS: SCAN/DIFF FINAL DIFF MANUAL; TOXIC GRANULATION 1+ (NORMAL)
[2017-04-26] MEDS: INSULIN ASPART SUPPLEMENTAL SCALE SQ SCH ×4 (07:50→21:00)
[2017-04-26] MEDS: ATORVASTATIN 80 MG TAB PO SCH (09:00)
[2017-04-26] MEDS: DILTIAZEM-CD 120 MG CAP ER PO SCH (09:00)
[2017-04-26] MEDS: MULTIVITAMIN TAB PO SCH (09:00)
[2017-04-26] MEDS: ASPIRIN 325 MG TAB PO SCH (09:00)
[2017-04-26] MEDS: FAMOTIDINE 20 MG TAB PO SCH ×2 (09:00→21:59)
[2017-04-26] MEDS: METOPROLOL TARTRATE 25 MG TAB PO SCH ×2 (09:00→21:00)
[2017-04-26] MEDS: SODIUM CHLORIDE 0.9% FLUSH 10 ML FLUSH IV FLUSH SCH ×2 (09:00→21:59)
[2017-04-26] MEDS: DOCUSATE SODIUM 50 MG/SENNA 8.6 MG TAB PO SCH ×2 (09:00→21:59)
[2017-04-26] MEDS: THIAMINE HCL 100 MG TAB PO SCH (09:00)
--- NOTE | 2017-04-26 10:09 | HHI.CCPN ---
Subjective Remarks/Hospital Course 04/25: 66-year-old deaf gentleman presents after he had the onset of nausea and vomiting at about 2 PM. He had the onset of chest pain at about 3 PM. He reports 3 episodes of emesis. He also some shortness of breath and states that he feels hot. No diaphoresis. He was found to be in AF with RVR by EMS and was treated with Cardizem. He was also given aspirin and nitroglycerin per EMS. In the emergency department he was found to have a low-grade fever as well. 04/26: Patient received 4 L of IV fluids overnight for hypotension. Discussed with Dr. Tucker Hoffman from cardiology this morning. Patient was reportedly on hospice following a tablet done at [facility] and had refused follow-up with [facility] at that time. When I evaluated the patient he was resting in bed and did not appear to be in any acute distress on nasal cannula. He was on a Cardizem drip at 10 mg per hour with rate controlled A. fib. Objective Vital Signs Date Time Temp Pulse Resp B/P (MAP) Pulse Ox O2 Delivery O2 Flow Rate FiO2 04/26/17 07:05 97 2.00 04/26/17 06:00 108 22 106/72 (83) 04/26/17 04:00 98.2 04/26/17 00:11 Nasal Cannula Intake and Output 04/26/17 04/26/17 04/27/17 08:00 16:00 00:00 Intake Total 1917 ml Output Total 700 ml Balance 1217 ml Result Diagram: 04/26/17 0350 04/26/17 0350 Other Results Microbiology Date/Time Source Procedure Growth Status 04/25/17 20:45 Nasal Washing Influenza Types A,B Antigen (ANICETO) - Final NEGATIVE FOR FLU A AND B ANTIGEN.... Complete Imaging Last Impressions Chest X-Ray 04/25/172035 Signed Impressions: Service Date/Time: Tuesday, April 25, 2017 20:39 - CONCLUSION: Cardiomegaly. There is a possible mild right effusion. Fortino Woodson MD Objective Remarks GENERAL: Well-nourished, well-developed patient. SKIN: Warm and dry. HEAD: Normocephalic. EYES: No scleral icterus. No injection or drainage. NECK: Supple, trachea midline. No JVD or lymphadenopathy. CARDIOVASCULAR: S1 and S2 irregularly irregular. RESPIRATORY: Breath sounds equal bilaterally. No accessory muscle use. No wheezing or crackles. GASTROINTESTINAL: Abdomen soft, non-tender, nondistended. MUSCULOSKELETAL: No cyanosis. Bilateral pedal edema BACK: Nontender without obvious deformity. NEURO EXAM: Awake alert, following commands, has deafness(long-standing), moves all 4 extremities A/P Assessment and Plan A. fib with RVR - Cardizem drip - Series of troponins - Series of EKGs - 2-D echo - Hold anticoagulation due to thrombocytopenia, 54 Elevated troponin - No ST changes on EKG - Cardiology consult - 2-D echo - Aspirin - Atorvastatin - Hold anticoagulation due to severe thrombocytopenia - KVO IVF. Lasix if needed. -Patient apparently has had a tablet a chance before per Dr. Tucker Hoffman however subsequently was on hospice and missed follow-up cardiology appointments. He is not planning any intervention at this time and recommends palliative care/ hospice evaluation. Fever with tachycardia and bandemia - Broad-spectrum antibiotic - Pancultures - De-escalate per sensitivity Diabetes - Insulin sliding scale Thrombocytopenia - Underlying liver cirrhosis - Monitor trend transfuse for platelets less than 20 Liver cirrhosis - Supportive care DVT GI prophylaxis - Teds SCDs - Hold pharmacological DVT prophylaxis due to severe thrombocytopenia - Pepcid We will consult palliative care to assist with deciding goals of therapy as patient is currently full CODE STATUS. Probably hospice appropriate at this time. Rigo Stone MD Apr 26, 2017 10:09
[2017-04-26] MEDS: DILTIAZEM INJ 125 MG in SODIUM CHLORIDE 0.9% INJ 100 ML IV PRN (10:50)
[2017-04-26] MEDS: VANCOMYCIN INJ 1,500 MG in SODIUM CHLORID 0.9% 500 ML INJ 500 ML IV SCH (12:16)
--- NOTE | 2017-04-26 13:16 | PD.CONS ---
Consult Service Palliative Care Consult Requested By Dr. Stone Primary Care Physician No Primary Care Physician Reason for Consultation a. To assist with evaluation and management of symptoms including:dyspnea b. To assist medical decision maker(s) with: better understanding of current medical conditions; weighing benefits/burdens of medical treatment options; making medical treatment decisions. HPI History of Present Illness Is a 66-year-old with a past medical history significant for but not limited to liver disease, hepatitis C, CAD, aortic stenosis, CHF, blind/, glaucoma, hypertension, RI, esophageal varices, alcohol but abuse, aortic valve endocarditis and pancytopenia. Patient last hospitalization in [place] was from 03/21/2017 to 03/17/2017. At the time patient had abdominal pain with intractable vomiting, and hematemesis. Patient was also found to have severe thrombocytopenia, lactic acidosis, atrial fibrillation with RVR and placed on Cardizem drip, pneumonia. CT of the abdomen and pelvic shows multiple splenic infarction, cirrhosis with signs of portal hypertension, anasarca. Patient was referred to [place] [facility] on 2015, but was never admitted to [place] [facility] as family went to rehab 2016. For current hospitalization, patient was brought to the ER again with onset of nausea and vomiting on 04/25/2017. He then had associated chest pain and 3 episodes of emesis. He reports dyspnea and diaphoresis. . On the way patient was given aspirin and nitroglycerin by EMS. In the ER * Temperature is 100.1, pulse is 77, respirations 20, blood pressure 119/81, pulse is 98% * WBCs 8.9, hemoglobin is 12.1, hematocrit is 35.8, platelet is 15.2 * Sodium is 142, potassium 3.4, chloride is 106, bicarbonate is 25.8, BUN is 11 , creatinine 0.90 * AST 73, ALT is 30, alkaline phosphatase is 130 * Chest x-ray shows cardiomegaly and possible mild right effusion * Patient was found to be in A. fib and was treated with Cardizem, and given history of prosthetic aortic valve, which treated with empiric cefepime and vancomycin and gentamicin. * Tachycardia persist and pt transferred to ICU, critical medicine consulted. Cardiology also consulted. In the icu; cultures collected, plts monitored, 2Decho ordered. troponin followed Trop I 0.87. Pt received 4 L IV fluid for hypotension. Parts Counterperson spoke with cardiology. There has been some confusion if patient has been in hospice or not. Palliative care consulted to review goals of care. I used [employer] translator/interpreter Services for intepretation as pt is deaf. Pt on my visit endorse dyspnea, and pain when he first got here, but currently no pain. When I ask him if he know where it is? He stated "I don't know ask my daughter. " When I ask him if he was on hospice, he nodded yes. When I ask him "What is hospice, what services does hospice do?" He started describing his hospitalization in 2004, about his heart valve. When I ask him "How many children do you have?" He listed 4 children. He endorse full code, but then say things like "If I am dying just put me underwater" Pt through longer conversation, I am able to acertain that he is confused, and not able to weigh benefits or risk for medical decisions. Case was d/w with Dr. Stone and Dr. Hoffman. I was able to reach Tawny, pts daughter. Per Tawny, she states he has a hard time with the stratus as he cannot see that well. Regardless however, she does concede even she has a hard time communicating with Dad, and that he has been more confused. She states that he has 1 Child and the other names tatoo on his chest are his grandchildren. She Confirmed that pt was not in HOSPICE, and that he miss his appointment at [facility] because he went to the ER. She also state logistically/transportation [place], it has been hard for him to get up to [facility] to make it to that appointment to fix his heart valve. Pt had underwent TAVR and has know regurgitation. Reviewed my discussion with the credit collections rep daughter. Cardiolgy in terms of his heart feels surgery can benefit him, but also sees compliance as an issue, and that if family/pt wants hospice, it will be appropriate as well. Reviewed his liver/ cirrhosis, his hospitalizations, his mental status and his questionable compliance with the surgery and rehab if he was able to make it to [facility]. Daughter is overwhelm with his care. She states she feels like giving up and just get hospice involve, but at the same time, pt is his only parent. We discuss his quality of life and that pt overall has been dyspneic, and at times require assitance with dressing, when he is able to do it by himself, he takes a long time. Overall he just spends time in his recliner. We discussed hospice as an option. For the time being daughter wants to "think about things more" 1)She endorse full code, but if he needs prolong ventilation, she states pt would not want that. I encourage Tawny to weigh the risk and benefits again. Pt had a tracheostomy before, but I suspect clinical outcome and quality of life would not be like last time. 2). She wants him to try to make it to [place] if able to for follow up. 3) She will think about risk and benefits, and quality some more. She is open to hospice should pt could not tolerate surgery/procedure or his mentation/ functional status simply does not allow him to get surgery for his heart valve or participate in rehab. 4) She request a live translator/interpreter to be used, not stratus. I told her we can try, but it may not be always available. Function/Cognitive Trajectory Pt getting more dyspneic, spends majority of time in chair. Able to do some adls such as putting on his clothes but takes an extremely long time. daughter endorse he is confused at times and won't listen to her, and blames her for his decline. Pt has been frustrated his license has been taken away. Review of Systems ROS Limitations: Clinical Condition Constitutional: COMPLAINS OF: Fatigue Respiratory: COMPLAINS OF: Shortness of breath Gastrointestinal: COMPLAINS OF: Nausea Neurologic: COMPLAINS OF: Localized weakness Psychiatric: COMPLAINS OF: Confusion Past Family Social History Coded Allergies: lisinopril (Unverified Allergy, Intermediate, 03/09/17) Past Medical History OA Asthma Atrial Fibrillation with RVR PCI history of CAD CHF by history CVA on 2004 DM II Deaf Glaucoma Cirrhosis Hypertension Past Surgical History Paracentesis Appendectomy Valve replacement, CABG x 3 Tonsillectomy Reported Medications Lasix (Furosemide) 40 Mg Tab 40 Mg PO DAILY Amlodipine (Amlodipine Besylate) 5 Mg Tab 5 Mg PO DAILY Current Medications Medications (Trade) Dose Ordered Sig/Blaire Route Start Time Stop Time Status Last Admin Diltiazem HCl 125 mg/Sodium Chloride 125 ml @ 5 mls/hr TITRATE PRN IV 04/25/17 21:15 04/26/17 10:50 (Cardizem Cd) 120 mg DAILY PO 04/26/17 09:00 04/26/17 09:00 (Lopressor) 12.5 mg Q12HR PO 04/26/17 09:00 (Roxicodone) 10 mg Q6H PRN PO 04/25/17 23:30 (Vitamin B1) 100 mg DAILY PO 04/26/17 09:00 04/26/17 09:00 (Theragran) 1 tab DAILY PO 04/26/17 09:00 04/26/17 09:00 (NS Flush) 2 ml UNSCH PRN IV FLUSH 04/25/17 23:45 (NS Flush) 2 ml BID IV FLUSH 04/26/17 09:00 04/26/17 09:00 (Tylenol) 650 mg Q6H PRN PO 04/25/17 23:45 ([place] 5-325 Mg) 1 tab Q4H PRN PO 04/25/17 23:45 04/26/17 03:56 (Morphine Inj) 2 mg Q2H PRN IV PUSH 04/25/17 23:45 (Pepcid) 20 mg Q12HR PO 04/26/17 09:00 04/26/17 09:00 (Ativan Inj) 1 mg Q1H PRN IV PUSH 04/25/17 23:45 (Zofran Inj) 4 mg Q6H PRN IV PUSH 04/25/17 23:45 (Ambien) 5 mg HS PRN PO 04/25/17 23:45 (Duoneb Neb) 1 ampule Q2HR NEB PRN INH 04/25/17 23:45 Miscellaneous Information 1 Q361D XX 04/25/17 23:45 (Chlorhexidine 2% Cloth) 3 pack Taper DAILY@04 TOP 04/26/17 04:00 04/22/18 03:59 04/26/17 02:58 (Chlorhexidine 2% Cloth) 3 pack UNSCH PRN TOP 04/25/17 23:45 (Minna-Colace) 1 tab BID PO 04/26/17 09:00 04/26/17 09:00 (Milk Of Magnesia Liq) 30 ml Q12H PRN PO 04/25/17 23:45 (Senokot) 17.2 mg Q12H PRN PO 04/25/17 23:45 (Dulcolax Supp) 10 mg DAILY PRN RECTAL 04/25/17 23:45 (Lactulose Liq) 30 ml DAILY PRN PO 04/25/17 23:45 Cefepime HCl 2000 mg/Sodium Chloride 100 ml @ 200 mls/hr Q8H IV 04/27/17 08:00 Pharmacy Profile Note 0 ml @ 0 mls/hr UNSCH OTHER 04/25/17 23:45 (D50w (Vial) Inj) 50 ml UNSCH PRN IV PUSH 04/26/17 05:45 (Glucagon Inj) 1 mg UNSCH PRN OTHER 04/26/17 05:45 (NovoLOG SUPPLEMENTAL SCALE) 1 ACHS SLIDING SCALE SQ 04/26/17 08:00 (Aspirin) 325 mg DAILY PO 04/26/17 09:00 (Lipitor) 80 mg DAILY PO 04/26/17 09:00 04/26/17 09:00 Vancomycin HCl 1500 mg/Sodium Chloride 515 ml @ 250 mls/hr Q18H IV 04/26/17 12:00 04/26/17 12:16 Miscellaneous Information SPECIFIC LAB TO BE DRAWN:VANCOMYCIN TROUGH DATE TO... ONCE ONCE .XX 04/28/17 17:45 04/28/17 17:46 Family History Positive for EtOH with father. No history of coronary artery disease. Substance Use Tobacco:no Alcohol: hx of abuse Illicits:hx of abuse Psychosocial History Orignally From [place] Has been deaf since 7 years old. Not . Only child is Tawny, daughter. Spiritual/Cultural Factors Anabaptism Living Will: Never completed Health Care Surrogate: Never completed Durable Power of Pattern Room Attendant: Never completed Physical Exam Vital Signs Date Time Temp Pulse Resp B/P (MAP) Pulse Ox O2 Delivery O2 Flow Rate FiO2 04/26/17 10:50 97 105/69 04/26/17 08:00 97.6 97 21 114/63 (80) 98 04/26/17 07:05 97 2.00 04/26/17 07:00 101 04/26/17 06:00 108 22 106/72 (83) 99 04/26/17 05:00 106 21 107/73 (84) 97 04/26/17 04:00 98.2 113 26 115/65 (82) 100 04/26/17 03:00 112 24 125/70 (88) 97 04/26/17 02:00 114 27 134/59 (84) 94 04/26/17 02:00 114 134/59 04/26/17 01:39 129 113/75 04/26/17 01:30 97.9 120 26 113/75 (88) 99 04/26/17 01:25 04/26/17 00:11 115 20 106/62 (77) 95 Nasal Cannula 2.00 04/25/17 22:50 98.5 102 20 94/65 (75) 95 Nasal Cannula 2.00 04/25/17 21:58 121 133/86 04/25/17 20:53 105 96 Nasal Cannula 2.00 04/25/17 20:53 20 Nasal Cannula 04/25/17 20:34 100.1 77 20 119/81 (94) 98 Exam CONSTITUTIONAL/GENERAL: This is an adequately nourished patient, in no apparent distress. On 2 L NC TUBES/LINES/DRAINS:montoya, PIV SKIN:some jaundice HEAD: Atraumatic. Normocephalic. EYES: Pupils equal and round and reactive. Extraocular motions intact. . No injection or drainage. Fundi not examined. ENT: Hearing grossly normal. Nose without bleeding or purulent drainage. Throat without visible erythema, exudates, masses, or lesions. NECK: Trachea midline. Supple, nontender. No palpable thyroid enlargement or nodularity. CARDIOVASCULAR: IR IR 2/6 CESIA murmurs, No gallop. RESPIRATORY/CHEST: Symmetric, some dyspnea with conversation, Clear to auscultation. Breath sounds equal bilaterally. No wheezes, rales, or rhonchi. GASTROINTESTINAL: Abdomen soft, non-tender, nondistended. No hepato-splenomegaly , or palpable masses. No guarding. Bowel sounds present. GENITOURINARY: Without palpable bladder distension. Montoya catheter in place. MUSCULOSKELETAL: Extremities 2+ pedal edema. No joint tenderness or effusion noted. No calf tenderness. No mottling or clubbing. LYMPHATICS: No palpable cervical or supraclavicular adenopathy. NEUROLOGICAL: Awake and alert. Motor and sensory grossly within normal limits. Follows commands only at times, but confused overall. Moves all extremities. PSYCHIATRIC: No obvious anxiety/depression. no apparent hallucinations or other psychotic thought process. Intermittent confusion. Diagnostic Tests Laboratory Laboratory Tests Test 04/25/17 20:45 04/25/17 22:45 04/25/17 23:35 04/26/17 01:30 White Blood Count 8.9 TH/MM3 (4.0-11.0) Red Blood Count 3.15 MIL/MM3 (4.50-5.90) Hemoglobin 12.1 GM/DL (13.0-17.0) Hematocrit 35.8 % (39.0-51.0) Mean Corpuscular Volume 113.6 FL (80.0-100.0) Mean Corpuscular Hemoglobin 38.5 PG (27.0-34.0) Mean Corpuscular Hemoglobin Concent 33.9 % (32.0-36.0) Red Cell Distribution Width 15.2 % (11.6-17.2) Platelet Count 67 TH/MM3 (150-450) Mean Platelet Volume 8.9 FL (7.0-11.0) Neutrophils (%) (Auto) 88.1 % (16.0-70.0) Lymphocytes (%) (Auto) 6.5 % (9.0-44.0) Monocytes (%) (Auto) 4.1 % (0.0-8.0) Eosinophils (%) (Auto) 0.5 % (0.0-4.0) Basophils (%) (Auto) 0.8 % (0.0-2.0) Neutrophils # (Auto) 7.8 TH/MM3 (1.8-7.7) Lymphocytes # (Auto) 0.6 TH/MM3 (1.0-4.8) Monocytes # (Auto) 0.4 TH/MM3 (0-0.9) Eosinophils # (Auto) 0.0 TH/MM3 (0-0.4) Basophils # (Auto) 0.1 TH/MM3 (0-0.2) CBC Comment AUTO DIFF Differential Total Cells Counted 100 Neutrophils % (Manual) 84 % (16-70) Band Neutrophils % 11 % (0-6) Lymphocytes % 1 % (9-44) Monocytes % 4 % (0-8) Neutrophils # (Manual) 8.5 TH/MM3 (1.8-7.7) Differential Comment FINAL DIFF MANUAL Platelet Estimate LOW (NORMAL) Platelet Morphology Comment NORMAL (NORMAL) Blood Urea Nitrogen 11 MG/DL (7-18) Creatinine 0.90 MG/DL (0.60-1.30) Random Glucose 91 MG/DL (74-106) Total Protein 7.0 GM/DL (6.4-8.2) Albumin 2.3 GM/DL (3.4-5.0) Calcium Level 8.2 MG/DL (8.5-10.1) Alkaline Phosphatase 130 U/L (45-117) Aspartate Amino Transf (AST/SGOT) 73 U/L (15-37) Alanine Aminotransferase (ALT/SGPT) 30 U/L (12-78) Total Bilirubin 5.3 MG/DL (0.2-1.0) Sodium Level 142 MEQ/L (136-145) Potassium Level 3.4 MEQ/L (3.5-5.1) Chloride Level 106 MEQ/L (98-107) Carbon Dioxide Level 25.8 MEQ/L (21.0-32.0) Anion Gap 10 MEQ/L (5-15) Estimat Glomerular Filtration Rate 85 ML/MIN (>89) Lactic Acid Level 3.7 mmol/L (0.4-2.0) 2.7 mmol/L (0.4-2.0) Total Creatine Kinase 50 U/L (39-308) Troponin I 0.12 NG/ML (0.02-0.05) Urine Color YELLOW (YELLW/STRAW) Urine Turbidity CLEAR (CLEAR) Urine pH 7.0 (5.0-8.5) Urine Specific [place] 1.015 (1.002-1.035) Urine Protein 300 mg/dL (NEG-TRACE) Urine Glucose (UA) NEG mg/dL (NEG) Urine Ketones NEG mg/dL (NEG) Urine Occult Blood MOD (NEG) Urine Nitrite NEG (NEG) Urine Bilirubin SMALL (NEG) Urine Urobilinogen 2.0 MG/DL (LESS THAN Urine Leukocyte Esterase NEG (NEG) Urine RBC 32 /hpf (0-3) Urine WBC 3 /hpf (0-5) Urine Squamous Epithelial Cells 1 /hpf (0-5) Urine Amorphous Sediment RARE Urine Hyaline Casts 1 /lpf (RARE) Urine Mucus FEW /lpf (OCC) Microscopic Urinalysis Comment CATH-CULT NOT IND Urine Opiates Screen NEG (NEG) Urine Barbiturates Screen NEG (NEG) Urine Amphetamines Screen NEG (NEG) Urine Benzodiazepines Screen NEG (NEG) Urine Cocaine Screen NEG (NEG) Urine Cannabinoids Screen NEG (NEG) Nasal Screen MRSA (PCR) MRSA NOT DETECTED (NOT Test 04/26/17 03:50 White Blood Count 10.8 TH/MM3 (4.0-11.0) Red Blood Count 2.93 MIL/MM3 (4.50-5.90) Hemoglobin 11.5 GM/DL (13.0-17.0) Hematocrit 33.8 % (39.0-51.0) Mean Corpuscular Volume 115.2 FL (80.0-100.0) Mean Corpuscular Hemoglobin 39.2 PG (27.0-34.0) Mean Corpuscular Hemoglobin Concent 34.0 % (32.0-36.0) Red Cell Distribution Width 15.3 % (11.6-17.2) Platelet Count 54 TH/MM3 (150-450) Mean Platelet Volume 7.8 FL (7.0-11.0) Neutrophils (%) (Auto) 90.8 % (16.0-70.0) Lymphocytes (%) (Auto) 4.3 % (9.0-44.0) Monocytes (%) (Auto) 4.3 % (0.0-8.0) Eosinophils (%) (Auto) 0.1 % (0.0-4.0) Basophils (%) (Auto) 0.5 % (0.0-2.0) Neutrophils # (Auto) 9.8 TH/MM3 (1.8-7.7) Lymphocytes # (Auto) 0.5 TH/MM3 (1.0-4.8) Monocytes # (Auto) 0.5 TH/MM3 (0-0.9) Eosinophils # (Auto) 0.0 TH/MM3 (0-0.4) Basophils # (Auto) 0.1 TH/MM3 (0-0.2) CBC Comment AUTO DIFF Differential Total Cells Counted 100 Neutrophils % (Manual) 78 % (16-70) Band Neutrophils % 20 % (0-6) Lymphocytes % 1 % (9-44) Monocytes % 1 % (0-8) Neutrophils # (Manual) 10.6 TH/MM3 (1.8-7.7) Differential Comment FINAL DIFF MANUAL Toxic Granulation 1+ (NORMAL) Platelet Estimate LOW (NORMAL) Platelet Morphology Comment NORMAL (NORMAL) Prothrombin Time 17.4 SEC (9.8-11.6) Prothromb Time International Ratio 1.5 RATIO Blood Urea Nitrogen 11 MG/DL (7-18) Creatinine 1.01 MG/DL (0.60-1.30) Random Glucose 139 MG/DL (74-106) Total Protein 7.0 GM/DL (6.4-8.2) Albumin 2.4 GM/DL (3.4-5.0) Calcium Level 7.7 MG/DL (8.5-10.1) Phosphorus Level 2.7 MG/DL (2.5-4.9) Magnesium Level 1.7 MG/DL (1.5-2.5) Alkaline Phosphatase 112 U/L (45-117) Aspartate Amino Transf (AST/SGOT) 68 U/L (15-37) Alanine Aminotransferase (ALT/SGPT) 33 U/L (12-78) Total Bilirubin 6.1 MG/DL (0.2-1.0) Sodium Level 140 MEQ/L (136-145) Potassium Level 3.5 MEQ/L (3.5-5.1) Chloride Level 106 MEQ/L (98-107) Carbon Dioxide Level 26.5 MEQ/L (21.0-32.0) Anion Gap 8 MEQ/L (5-15) Estimat Glomerular Filtration Rate 74 ML/MIN (>89) Lactic Acid Level 2.8 mmol/L (0.4-2.0) Total Creatine Kinase 65 U/L (39-308) Troponin I 0.87 NG/ML (0.02-0.05) Result Diagram: 04/26/17 0350 04/26/17 0350 Microbiology Microbiology Date/Time Source Procedure Growth Status 04/25/17 23:00 Blood Peripheral Aerobic Blood Culture - Preliminary NO GROWTH IN 1 DAY Resulted 04/25/17 23:00 Blood Peripheral Anaerobic Blood Culture - Preliminary NO GROWTH IN 1 DAY Resulted 04/25/17 23:00 Blood Peripheral Aerobic Blood Culture - Preliminary NO GROWTH IN 1 DAY Resulted 04/25/17 23:00 Blood Peripheral Anaerobic Blood Culture - Preliminary NO GROWTH IN 1 DAY Resulted 04/25/17 20:45 Blood Peripheral Aerobic Blood Culture - Preliminary NO GROWTH IN 1 DAY Resulted 04/25/17 20:45 Blood Peripheral Anaerobic Blood Culture - Preliminary NO GROWTH IN 1 DAY Resulted 04/25/17 20:40 Blood Peripheral Aerobic Blood Culture - Preliminary Gram Positive Cocci Resulted 04/25/17 20:40 Blood Peripheral Anaerobic Blood Culture - Preliminary NO GROWTH IN 1 DAY Resulted 04/25/17 20:45 Nasal Washing Influenza Types A,B Antigen (ANICETO) - Final NEGATIVE FOR FLU A AND B ANTIGEN.... Complete 04/25/17 22:45 Urine Random Urine Urine Culture Pending Received Imaging Last Impressions Chest X-Ray 04/25/172035 Signed Impressions: Service Date/Time: Tuesday, April 25, 2017 20:39 - CONCLUSION: Cardiomegaly. There is a possible mild right effusion. Fortino Woodson MD Patient/Family Conference Present at Family Conference: Patient Pt's daughter via telephone Family Conference Time (mins): 50 Family Conference Location: Telephone Issues Discussed: * Palliative care role, purpose, approach * Additional medical, psychosocial, and spiritual history * Patients general health, functional status, and cognitive changes in the months leading up to the current hospitalization * Patient/family understanding of the current medical problems * Patient/family understanding of prognosis * Patients goals of care as best understood from advance directives and/or conversations and/or values * Current medical treatment options and benefits/burdens of those options * Likely scenarios comparing ongoing aggressive care with a transition to comfort measures only * Questions answered to the best of my ability * Palliative care contact information provided Assessment and Plan Disease Oriented Problem List: (1) Atrial fibrillation with RVR (2) Chronic diastolic congestive heart failure (3) S/P TAVR (transcatheter aortic valve replacement) (4) Alcoholic cirrhosis of liver with ascites (5) Hepatitis C (6) Varices, esophageal Comment: hx of (7) Fever (8) Chronic low back pain (9) Deafness (10) History of discitis (11) ETOH abuse Comment: hx of (12) Drug abuse Comment: hx of. (13) Pancytopenia Symptom Scale: (1) Pain 0-10 Scale: 0 (2) Dyspnea 0-10 Scale: 0 Pertinent Non-Medical Issues Psychosocial: Spiritual: Legal: Ethical issues impacting care: Important Contacts Tawny Reno [phone] (daughter ). Nitish Ordoñez , (friend) Prognosis Hx of substance abuse, prothetic valve, hepatitic C, cirrohsis, gi bleed. currently in Afib. Given functional status, multiple hospitalizations, and multiple comorbidities, pt is appropriate for hospice if goals of care is consistent with comfort mesures only. Code Status: Full Code Plan == Capacity: I used [employer] translator/interpreter Services for intepretation as pt is deaf. Pt on my visit endorse dyspnea, and pain when he first got here, but currently no pain. When I ask him if he know where it is? He stated "I don't know ask my daughter." When I ask him if he was on hospice, he nodded yes. When I ask him "What is hospice, what services does hospice do?" He started describing his hospitalization in 2004, about his heart valve. When I ask him "How many children do you have?" He listed 4 children. (Pt only has 1 child) He endorse full code, but then say things like "If I am dying just put me underwater" As conversation progress, I am able to acertain that he is confused, and not able to weigh benefits or risk for medical decisions. Spoke with pt's daughter who agree that pt has been confused and its has been hard for her to communicate with him and it has been hard for him to understand. Pt has confusion, I do not think he has capacity to weigh risk and benefits of medical decision, on my visit. He likely fluctuates, at most it would be joint decision making with pt's daughter Tawny, but pt alone on my visit today could not make medical decision himself. == Decision Maker: Pt is not . No advance directive completed. By [employer] Proxy would be Daughter Tawny Bojorquez. == Code: Full == Goals: Case was d/w with Dr. Stone and Dr. Hoffman. I was able to reach Tawny, pts daughter. She Confirmed that pt was not in HOSPICE, and that he miss his appointment because he went to the ER. She also state logistically (transportation, no one to take him) it has been hard for him to get up to [place] to make it to that appointment to fix his heart valve. Reviewed my discussion with the credit collections rep. Cardiolgy in terms of his heart feels surgery may/can benefit him, but also sees compliance/functional status as an issue, and that if family/pt wants hospice, it will be appropriate as well. He has elevated troponins and is being treated medically only currently. Reviewed with daughter, pt's liver/ cirrhosis, his hospitalizations, his mental state and his compliance with the surgery and rehab even if he was able to make it to [place]. Daughter is overwhelm with his care. She states she feels like giving up and just get hospice involve, but at the same time, pt is his only parent. We discuss his quality of life and that pt overall has been dyspneic, and at times require assitance with dressing, when he is able to do it by himself, he takes a long time. Overall he just spends time in his recliner. We discussed hospice as an option. For the time being daughter wants to "think about things more" 1)She endorse full code, but if he needs prolong ventilation, she states pt would not want that. I encourage Tawny to weigh the risk and benefits again. Pt had a tracheostomy before, but I suspect clinical outcome and quality of life would not be like last time. 2). She wants him to try to make it to [place] if able to for follow up for his TAVR with moderate aortic regurgitation. 3) She will think about risk and benefits, and quality some more. She is open to hospice should pt could not tolerate surgery/procedure or his mentation/ functional status, simply does not allow him to get surgery for his heart valve or participate in rehab. For now though goals are aggressive. 4) She request a live intepreter to be used, not stratus. I told her we can try , but it may not be always available. Symptoms/ no dyspnea for now, but may easily decompensate. no new med rec. Pain- no pain for the time being. Confusion- likely mutifactorial, general decline, liver cirrhosis, hx of etoh abuse. == palliative care will follow up. case d/w with cardiology and icing coater. Time Spent Total Floor Time (mins): 90 Face to Face Time (mins): 45 Thank you for the opportunity to participate in the care of Mr. Stovall. Attestation To help prompt me to consider important information that might be impacting today's encounter and assessment, information from prior notes written by myself or my colleagues may have been "brought forward" into today's note. My signature on this note, however, is an attestation that I personally performed the exam, history, and/or decision-making noted today, and, unless otherwise indicated, the interactions with patient, family, and staff as well as the review of records all occurred today. I also attest that the listed assessment and stated plan reflect my best clinical judgment today based on the combination of historical information, prior notes, and today's exam/ interactions. When time spent is documented, it refers only to time spent today by the signer, or if indicated, combined time spent today by collaborating physician/nurse practitioner. Guanako England MD Apr 26, 2017 13:16
[2017-04-26] MEDS ORDERED: FUROSEMIDE 40 MG/4 ML VIAL IV PUSH ONE (15:30)
--- NOTE | 2017-04-26 16:03 | MB ---
cc: BRADLY ALCANTARA DO DATE OF CONSULTATION: 04/26/2017 REASON FOR CONSULTATION: Atrial fibrillation, elevated troponin. HISTORY OF PRESENT ILLNESS Dallas Stovall is a pleasant 66-year-old male who is known to my partner Dr. Tellez, and presented to the [facility] on April 25, 2017 for nausea and vomiting. After the episode of nausea and vomiting, he had chest pain. He has also noticed that he is somewhat short of breath and had fevers. On arrival he was found to be in A-fib with RVR and treated with Cardizem. Because of his presentation as well as his low blood pressure, he was given 4-5 liters of fluid. In seeing him he is currently stable without chest pain or shortness of breath. 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 History was discussed with Dr. Tellez who states that he missed his last office visit because he was on hospice. He also was supposed to follow up multiple times with [facility] and has been unable to. In speaking to the patient he states he was on Hospice although there is some confusion about this. PAST MEDICAL HISTORY 1. Atrial fibrillation 2. Coronary artery disease. 3. Diastolic congestive heart failure. 4. History of CVA (2004) 5. Diabetes mellitus type 2. 6. Deafness 7. Glaucoma 8. Cirrhosis with extensive thrombocytopenia. 9. Hypertension. 10. Asthma. PAST SURGICAL HISTORY 1. TAVR with a 29 millimeter Hernández valve at [facility]. 2. CABG x3. 3. Appendectomy. 4. Paracentesis. 5. Tonsillectomy. ALLERGIES Lisinopril. MEDICATIONS 1. Metoprolol tartrate 12.5 milligrams b.i.d. 2. Cardizem 120 milligrams daily. 3. Oxycodone 10 milligrams every six hours as needed for pain. 4. Lasix 40 milligrams daily. FAMILY HISTORY Denies sudden cardiac within the family. SOCIAL HISTORY Denies tobacco abuse. He has a history of alcohol and drug abuse. REVIEW OF SYSTEMS 14-systems were reviewed including osteopathic, pertinent positives and negatives above, otherwise negative. PHYSICAL EXAMINATION Vital signs: Temperature 97.9, heart rate 120, blood pressure 113/75, respirations 25, pulse ox 99% on 2 liters. In general the patient appears well in no acute distress, alert awake and oriented x3. HEENT: Extraocular muscles intact. Mucous membranes moist. Neck: Supple. No JVD at 45 degrees. No carotid bruits heard bilaterally. Carotid upstroke is brisk in nature. Heart: Irregularly irregular, positive first and second heart sounds with a 2/6 crescendo-decrescendo murmur to the right sternal border. Lungs: Lungs have decreased breath sounds bilaterally but no overt wheezes, rales or rhonchi. Abdomen: Soft, nontender, nondistended, no organomegaly noted. Extremities: Trace edema bilaterally but no clubbing or cyanosis. Neurologically, no focal deficits. Skin: Warm, dry and intact. Osteopathic: No kyphoscoliosis, lordosis or paraspinal tender points. LABORATORY WORK: Hemoglobin 11.5, hematocrit 33.8, platelets 54, potassium 3.5, BUN 11, creatinine 1.01, lactic acid 2.8, troponin 0.87. Electrocardiogram (April 26, 2017 at 03:36) atrial fibrillation with rapid ventricular response, possible anterior septal infarct age undetermined, nonspecific ST-T wave changes. IMPRESSION 1. Elevated troponin, possible type 1 versus type 2, troponin spill. 2. Atrial fibrillation with rapid ventricular response. 3. Fever with tachycardia and bandemia 4. Diabetes mellitus 5. History of TAVR. 6. History of coronary artery disease with a history of coronary artery bypass grafting x3. 7. Thrombocytopenia. 8. Liver cirrhosis. RECOMMENDATIONS Mr. Stovall presented with A-fib with RVR and an elevated troponin. We will attempt to try to control his heart rate with Cardizem drip and further with oral medications. As far as his elevated troponin, he is not a candidate for invasive management due to his extensive thrombocytopenia. He has a known TAVR with moderate aortic regurgitation and then received 4-5 liters of fluid which may have stressed his heart and increased his troponin level. We will less likely need to diurese him somewhat. TAVR care has been consulted to further determine patient's wishes on whether to continue with Hospice or possible further aggressive measures. Overall any further cardiac intervention would be difficult with his current level of platelets. We will attempt to treat him medically as best we can at this time. Further recommendations will be made based on the hospital course. Thank you for allowing me to see Dallas Stovall. If there are any questions please do not hesitate to call. Bradly HERNÁNDEZ/POONAM /2:57 PM /3:22 PM
--- NOTE | 2017-04-26 16:42 | EKG ---
Date Performed: 04/26/2017 Time Performed: 03:36:18 PTAGE: 66 years EKG: Atrial fibrillation with rapid ventricular response. Possible anteroseptal infarct - age un determined Lateral T wave changes are nonspecific Generalized low QRS voltages Compared to prior trac ing no significant change Abnormal ECG PREVIOUS TRACING : 04/25/2017 01.47 DOCTOR: Shanita Kim Interpretating Date/Time 04/26/2017 16:39:53
[2017-04-26] MEDS: SODIUM CHLOR 0.9% 1000 ML INJ 1,000 ML IV SCH (18:45)
--- NOTE | 2017-04-26 18:46 | ECHRPT ---
Indication: A-fib CONCLUSIONS The left ventricular systolic function is mildly reduced with an estimated ejection fraction in the range of 45- 50%. Mild mitral valve regurgitation. Aortic valve prosthesis noted, not well visualized (known TAVR 29mm by history). Moderate aortic valve regurgitation. Mild aortic valve stenosis (mean 12.6, peak 20.5, WILBERTO 2.1) There is trace tricuspid valve regurgitation. BP: 106 / 72 HR: 108 Rhythm: Atrial fibrillation MEASUREMENTS (Male / Female) Normal Values Technical Quality:Fair 2D ECHO LV Diastolic Diameter PLAX 5.1 cm 4.2 - 5.9 / 3.9 - 5.3 cm LV Systolic Diameter PLAX 3.8 cm IVS Diastolic Thickness 1.1 cm 0.6 - 1.0 / 0.6 - 0.9 cm LVPW Diastolic Thickness 1.1 cm 0.6 - 1.0 / 0.6 - 0.9 cm LV Relative Wall Thickness 0.4 RV Internal Dim ED PLAX 3.1 cm LVOT Diameter 2.1 cm LA Systolic Diameter LX 4.0 cm 3.0 - 4.0 / 2.7 - 3.8 cm LV Ejection Fraction MOD 4C 50.0 % LV Cardiac Index MOD 4C 2941.9 cm/minm LV Ejection Fraction 4C AL 50.5 % LV Cardiac Index 4C AL 3079.7 cm/minm M-MODE Aortic Root Diameter MM 2.8 cm AV Cusp Separation MM 1.2 cm DOPPLER AV Peak Velocity 226.4 cm/s AV Peak Gradient 20.5 mmHg AV Mean Gradient 12.6 mmHg AV Velocity Time Integral 37.9 cm AI Peak Velocity 334.0 cm/s AI Peak Gradient 44.6 mmHg AI Pressure Half Time 337.5 ms LVOT Peak Velocity 164.0 cm/s LVOT Peak Gradient 10.8 mmHg LVOT Velocity Time Integral 29.0 cm LVOT Cardiac Index 4345.6 cm/minm AV Area Cont Eq vti 2.6 cm AV Area Cont Eq pk 2.5 cm MV Area PHT 5.4 cm LV E' Lateral Velocity 4.2 cm/s LV E' Septal Velocity 4.8 cm/s TR Peak Velocity 217.0 cm/s TR Peak Gradient 18.8 mmHg Right Atrial Pressure 10.0 mmHg Pulmonary Artery Systolic Pressu 28.8 mmHg Right Ventricular Systolic Press 28.8 mmHg PV Peak Velocity 106.0 cm/s PV Peak Gradient 4.5 mmHg FINDINGS LEFT VENTRICLE The left ventricular systolic function is mildly reduced with an estimated ejection fraction in the range of 45- 50%. Normal left ventricular size. Wall thickness is measured at the upper limits of normal. RIGHT VENTRICLE Normal right ventricular size and systolic function. LEFT ATRIUM The left atrial size is mildly dilated. RIGHT ATRIUM The right atrial size is mildly dilated. ATRIAL SEPTUM Normal atrial septal thickness without atrial level shunting by limited color doppler interrogation. AORTA The aortic root and proximal ascending aorta are normal in size on limited imaging. MITRAL VALVE Structurally normal mitral valve. No mitral valve stenosis. Mild mitral valve regurgitation. AORTIC VALVE Aortic valve prosthesis noted, not well visualized (known TAVR 29mm by history). Moderate aortic valve regurgitation. Mild aortic valve stenosis (mean 12.6, peak 20.5, WILBERTO 2.1) TRICUSPID VALVE There is trace tricuspid valve regurgitation. The estimated pulmonary arterial pressure is 28.8 mmHg. Structurally normal tricuspid valve. PULMONARY VALVE No pulmonary valve regurgitation or stenosis. VESSELS The inferior vena cava is normal in size. PERICARDIUM No pericardial effusion. Bradly Hoffman DO (Electronically Signed) Final Date:26 April 2017 18:45
[2017-04-27] VITALS (19 sets, daily range): BP systolic 80–145; BP diastolic 53–84; PULSE 77–125; RESP 12–25; TEMP 97.9–98.9; O2SAT 90–100
[2017-04-27] MEDS ORDERED: VANCOMYCIN INJ 1,000 MG in SODIUM CHLOR 0.9% 250 ML INJ 250 ML IV SCH (01:00)
[2017-04-27] MEDS: MORPHINE SULFATE 4 MG/ML INJ IV PUSH PRN ×2 (01:36→04:44)
[2017-04-27] MEDS: CHLORHEXIDINE GLUCONATE 2 % 1 PACK (2 CLOTHS) TOP SCH (04:00)
[2017-04-27] MEDS: VANCOMYCIN INJ 1,500 MG in SODIUM CHLORID 0.9% 500 ML INJ 500 ML IV SCH (04:44)
--- NOTE | 2017-04-27 05:48 | RADRPT ---
EXAM DATE/TIME: 04/27/2017 04:57 [facility] COMPARISON: CHEST SINGLE AP, April 25, 2017, 20:39. INDICATIONS : Short of breath. MEDICAL HISTORY : Hypertension. Diabetes mellitus type II. Congestive heart failure. SURGICAL HISTORY : None. ENCOUNTER: Subsequent ACUITY: 2 days PAIN SCORE: 0/10 LOCATION: Bilateral chest FINDINGS: Worsening bilateral airspace opacities, midlung and basilar predominant on the right, basilar predomi nant on the left. A small right pleural effusion is present with some lateral loculation, larger. Heart size stable, upper limits of normal. CONCLUSION: Worsening bilateral airspace disease and right effusion. Fortino Cruz MD on April 27, 2017 at 5:45 Board Certified Radiologist. This report was verified electronically.
[2017-04-27 06:09] LABS: AUTOMATED NEUTROPHIL # 5.9 TH/MM3 (1.8-7.7); BASOPHIL # 0.1 TH/MM3 (0-0.2); BASOPHIL % 1.2 % (0.0-2.0); EOSINOPHIL # 0.1 TH/MM3 (0-0.4); EOSINOPHIL % 1.1 % (0.0-4.0); HEMATOCRIT 36.8 % (39.0-51.0); LYMPH % 15.7 % (9.0-44.0); LYMPHOCYTE # 1.3 TH/MM3 (1.0-4.8); MEAN CELL VOLUME 115.3 FL (80.0-100.0); MEAN CORPUSCULAR HEMOGLOBIN 38.7 PG (27.0-34.0); MEAN CORPUSCULAR HGB CONC 33.5 % (32.0-36.0); MONO % 8.9 % (0.0-8.0); NEUT % 73.1 % (16.0-70.0); PLATELET COUNT 68 TH/MM3 (150-450); RED BLOOD COUNT 3.19 MIL/MM3 (4.50-5.90)
[2017-04-27 06:17] LABS: HEMO FLAGS AUTO DIFF
[2017-04-27 06:37] LABS: ALT (GPT) 32 U/L (12-78); ANION GAP 4 MEQ/L (5-15); AST (GOT) 67 U/L (15-37); BICARBONATE 29.9 MEQ/L (21.0-32.0); BLOOD UREA NITROGEN 15 MG/DL (7-18); CHLORIDE 103 MEQ/L (98-107); GLOMERULAR FILTRATION RATE 65 ML/MIN (>89); POTASSIUM 3.7 MEQ/L (3.5-5.1); SODIUM (NA) 137 MEQ/L (136-145)
[2017-04-27 06:39] LABS: ALKALINE PHOSPHATASE 130 U/L (45-117); TOTAL BILIRUBIN ADULT 4.4 MG/DL (0.2-1.0)
[2017-04-27] MEDS: CEFEPIME INJ 2,000 MG in SODIUM CHLORIDE 0.9% INJ 100 ML IV SCH ×2 (08:00→18:38)
[2017-04-27] MEDS ORDERED: DEXMEDETOMIDINE INJ 200 MCG in SODIUM CHLORIDE 0.9% INJ 50 ML IV PRN (08:15)
[2017-04-27] MEDS ORDERED: DEXMEDETOMIDINE HCL 200 MCG/2 ML VIAL IV PUSH ONE (08:15)
[2017-04-27] MEDS ORDERED: FUROSEMIDE 100 MG/10 ML VIAL IV PUSH ONE (08:15)
[2017-04-27] MEDS ORDERED: DILTIAZEM HCL 25 MG/5 ML VIAL IV ONE (08:30)
[2017-04-27] MEDS ORDERED: DILTIAZEM INJ 125 MG in SODIUM CHLORIDE 0.9% INJ 100 ML IV PRN (08:30)
[2017-04-27] MEDS: ATORVASTATIN 80 MG TAB PO SCH (09:00)
[2017-04-27] MEDS: SODIUM CHLORIDE 0.9% FLUSH 10 ML FLUSH IV FLUSH SCH (09:00)
[2017-04-27] MEDS: FAMOTIDINE 20 MG TAB PO SCH ×2 (09:00→21:00)
[2017-04-27] MEDS: DILTIAZEM-CD 120 MG CAP ER PO SCH (09:00)
[2017-04-27] MEDS: MULTIVITAMIN TAB PO SCH (09:00)
[2017-04-27] MEDS: DOCUSATE SODIUM 50 MG/SENNA 8.6 MG TAB PO SCH ×2 (09:00→21:00)
[2017-04-27] MEDS: ASPIRIN 325 MG TAB PO SCH (09:00)
[2017-04-27] MEDS ORDERED: DEXMEDETOMIDINE INJ 1,000 MCG in SODIUM CHLOR 0.9% 250 ML INJ 250 ML IV PRN (09:00)
[2017-04-27] MEDS: THIAMINE HCL 100 MG TAB PO SCH (09:00)
[2017-04-27] MEDS: METOPROLOL TARTRATE 25 MG TAB PO SCH ×2 (09:00→21:00)
[2017-04-27] MEDS ORDERED: FUROSEMIDE 40 MG/4 ML VIAL ONE (09:54)
[2017-04-27 10:31] LABS: BANDS 18 % (0-6); METAMYELOCYTES 1 % (0-1); NEUTROPHIL # MANUAL DIFF 7.1 TH/MM3 (1.8-7.7); PLATELET ESTIMATE SMEAR LOW (NORMAL); PLATELET MORPHOLOGY NORMAL (NORMAL); POLYS (SEG NEUTROPHILS) 70 % (16-70); WBC DIFF SAMPLE 100
[2017-04-27 10:32] LABS: SCAN/DIFF FINAL DIFF MANUAL
--- NOTE | 2017-04-27 11:25 | HHI.HCPN ---
Reason for visit a. To assist with evaluation and management of symptoms including:dyspnea, pain, confusion b. To assist medical decision maker(s) with: better understanding of current medical conditions; weighing benefits/burdens of medical treatment options; making medical treatment decisions. . Subjective/Interval History [place] [facility] [place] Oxygen saturations in the low 90s on 7L via simple mask; respirations are shallow; respiratory rate of 9. Follow- up chest x-ray this morning showing worsening bilateral airspace disease and right effusion. On Cardizem and Precedex drip. Lab work 04/27/2017 ==WBC: 8.0, hemoglobin 12.3, hematocrit 36.8, platelets 68, neutrophils 73.1% ==Sodium: 137, potassium 3.7, chloride 103, carbon dioxide 29.9, glucose 111, calcium 8.3 ==BUN: 15, creatinine 1.14, GFR 15 ==Total bilirubin: 4.4, AST 67, ALT 62 ==Alkaline phosphatase: 1:30 ==Total protein: 7.9, albumin 2.7 Cardiology was consulted on secondary to patient's atrial fibrillation and elevated troponin of 0.87. Dr. Hoffman evaluated the patient who is on a Cardizem drip for rate control secondary to his A. fib with RVR. He has a TAVR with moderate aortic regurgitation; he received 4-5 liters of fluid which may have stressed his heart causing his troponin level to be elevated. Patient is not a candidate for aggressive cardiac interventions at this time given his thrombocytopenia. Platelets of 68. Recommendations to treat the patient medically. . Family/friend interactions Spoke to patient's significant other, Adina, via telephone. Met with patient's daughter, Tawny, at bedside and privately and the patient conference room. Tawny IS NOT the patient's biological daughter and therefore is not the healthcare proxy decision maker. She states she is all that the patient has. Patient is single with no children or siblings; his parents are reportedly . In reviewing the patient's medical record, it was noted that a healthcare surrogate designation form was completed on 02/20/2016. Anh Ordoñez is designated as the healthcare surrogate decision maker; the patient's stepdaughter (Tawny Gamez) is designated as the alternate health care surrogate. However, I spoke with with Anh Ordoñez who stated she is no longer involved in the patient's life; she subsequently opted out of role of the healthcare surrogate decision maker. The patient's stepdaughter, Tawny, is willing to act in this role. . Advance Directives Living Will: Never completed Health Care Surrogate: Never completed Durable Power of Coffee Urn Attendant: Never completed Objective Vital Signs Date Time Temp Pulse Resp B/P (MAP) Pulse Ox O2 Delivery O2 Flow Rate FiO2 04/27/17 07:10 93 Simple Mask 7.00 04/27/17 04:00 98.2 112 25 121/75 (90) 90 04/27/17 00:00 98.4 97 18 106/67 (80) 92 04/26/17 23:00 91 04/26/17 20:00 98.6 103 23 109/67 (81) 96 04/26/17 19:05 95 21 04/26/17 16:00 98.7 88 25 98 04/26/17 15:00 82 04/26/17 12:00 98.4 98 28 85/64 (71) 92 Intake & Output 04/27/17 04/27/17 07:00 19:00 Output Total 425 ml Balance -425 ml Output Urine Total 425 ml # Bowel Movements 0 . Physical Exam CONSTITUTIONAL/GENERAL: This is an adequately nourished patient with deteriorating respiratory status, now on 7L oxygen via simple mask. TUBES/LINES/DRAINS: Dash cath, PIV SKIN: Warm and dry. Ecchymosis noted on right thigh HEAD: Atraumatic. Normocephalic. EYES: Pupils equal and round. No injection or drainage. Fundi not examined. ENT: Nose without bleeding or purulent drainage. NECK: Trachea midline. CARDIOVASCULAR: Irregularly irregular RESPIRATORY/CHEST: Respirations shallow on 7L oxygen via simple mask. Breath sounds diminished bilaterally GASTROINTESTINAL: Abdomen soft, non-tender, nondistended. No guarding. Bowel sounds present. GENITOURINARY: Without palpable bladder distension. Dash catheter in place. MUSCULOSKELETAL: Extremities 2+ edema up to knee bilaterally. No mottling or clubbing. LYMPHATICS: No palpable cervical or supraclavicular adenopathy. NEUROLOGICAL: Sedated PSYCHIATRIC: No obvious anxiety/depression. no apparent hallucinations or other psychotic thought process. Intermittent confusion. . Diagnostic Tests Laboratory Laboratory Tests Test 04/25/17 20:45 04/25/17 22:45 04/25/17 23:35 04/26/17 01:30 White Blood Count 8.9 TH/MM3 (4.0-11.0) Red Blood Count 3.15 MIL/MM3 (4.50-5.90) Hemoglobin 12.1 GM/DL (13.0-17.0) Hematocrit 35.8 % (39.0-51.0) Mean Corpuscular Volume 113.6 FL (80.0-100.0) Mean Corpuscular Hemoglobin 38.5 PG (27.0-34.0) Mean Corpuscular Hemoglobin Concent 33.9 % (32.0-36.0) Red Cell Distribution Width 15.2 % (11.6-17.2) Platelet Count 67 TH/MM3 (150-450) Mean Platelet Volume 8.9 FL (7.0-11.0) Neutrophils (%) (Auto) 88.1 % (16.0-70.0) Lymphocytes (%) (Auto) 6.5 % (9.0-44.0) Monocytes (%) (Auto) 4.1 % (0.0-8.0) Eosinophils (%) (Auto) 0.5 % (0.0-4.0) Basophils (%) (Auto) 0.8 % (0.0-2.0) Neutrophils # (Auto) 7.8 TH/MM3 (1.8-7.7) Lymphocytes # (Auto) 0.6 TH/MM3 (1.0-4.8) Monocytes # (Auto) 0.4 TH/MM3 (0-0.9) Eosinophils # (Auto) 0.0 TH/MM3 (0-0.4) Basophils # (Auto) 0.1 TH/MM3 (0-0.2) CBC Comment AUTO DIFF Differential Total Cells Counted 100 Neutrophils % (Manual) 84 % (16-70) Band Neutrophils % 11 % (0-6) Lymphocytes % 1 % (9-44) Monocytes % 4 % (0-8) Neutrophils # (Manual) 8.5 TH/MM3 (1.8-7.7) Differential Comment FINAL DIFF MANUAL Platelet Estimate LOW (NORMAL) Platelet Morphology Comment NORMAL (NORMAL) Blood Urea Nitrogen 11 MG/DL (7-18) Creatinine 0.90 MG/DL (0.60-1.30) Random Glucose 91 MG/DL (74-106) Total Protein 7.0 GM/DL (6.4-8.2) Albumin 2.3 GM/DL (3.4-5.0) Calcium Level 8.2 MG/DL (8.5-10.1) Alkaline Phosphatase 130 U/L (45-117) Aspartate Amino Transf (AST/SGOT) 73 U/L (15-37) Alanine Aminotransferase (ALT/SGPT) 30 U/L (12-78) Total Bilirubin 5.3 MG/DL (0.2-1.0) Sodium Level 142 MEQ/L (136-145) Potassium Level 3.4 MEQ/L (3.5-5.1) Chloride Level 106 MEQ/L (98-107) Carbon Dioxide Level 25.8 MEQ/L (21.0-32.0) Anion Gap 10 MEQ/L (5-15) Estimat Glomerular Filtration Rate 85 ML/MIN (>89) Lactic Acid Level 3.7 mmol/L (0.4-2.0) 2.7 mmol/L (0.4-2.0) Total Creatine Kinase 50 U/L (39-308) Troponin I 0.12 NG/ML (0.02-0.05) Urine Color YELLOW (YELLW/STRAW) Urine Turbidity CLEAR (CLEAR) Urine pH 7.0 (5.0-8.5) Urine Specific [place] 1.015 (1.002-1.035) Urine Protein 300 mg/dL (NEG-TRACE) Urine Glucose (UA) NEG mg/dL (NEG) Urine Ketones NEG mg/dL (NEG) Urine Occult Blood MOD (NEG) Urine Nitrite NEG (NEG) Urine Bilirubin SMALL (NEG) Urine Urobilinogen 2.0 MG/DL (LESS THAN Urine Leukocyte Esterase NEG (NEG) Urine RBC 32 /hpf (0-3) Urine WBC 3 /hpf (0-5) Urine Squamous Epithelial Cells 1 /hpf (0-5) Urine Amorphous Sediment RARE Urine Hyaline Casts 1 /lpf (RARE) Urine Mucus FEW /lpf (OCC) Microscopic Urinalysis Comment CATH-CULT NOT IND Urine Opiates Screen NEG (NEG) Urine Barbiturates Screen NEG (NEG) Urine Amphetamines Screen NEG (NEG) Urine Benzodiazepines Screen NEG (NEG) Urine Cocaine Screen NEG (NEG) Urine Cannabinoids Screen NEG (NEG) Nasal Screen MRSA (PCR) MRSA NOT DETECTED (NOT Test 04/26/17 03:50 04/27/17 04:47 White Blood Count 10.8 TH/MM3 (4.0-11.0) 8.0 TH/MM3 (4.0-11.0) Red Blood Count 2.93 MIL/MM3 (4.50-5.90) 3.19 MIL/MM3 (4.50-5.90) Hemoglobin 11.5 GM/DL (13.0-17.0) 12.3 GM/DL (13.0-17.0) Hematocrit 33.8 % (39.0-51.0) 36.8 % (39.0-51.0) Mean Corpuscular Volume 115.2 FL (80.0-100.0) 115.3 FL (80.0-100.0) Mean Corpuscular Hemoglobin 39.2 PG (27.0-34.0) 38.7 PG (27.0-34.0) Mean Corpuscular Hemoglobin Concent 34.0 % (32.0-36.0) 33.5 % (32.0-36.0) Red Cell Distribution Width 15.3 % (11.6-17.2) 16.0 % (11.6-17.2) Platelet Count 54 TH/MM3 (150-450) 68 TH/MM3 (150-450) Mean Platelet Volume 7.8 FL (7.0-11.0) 8.8 FL (7.0-11.0) Neutrophils (%) (Auto) 90.8 % (16.0-70.0) 73.1 % (16.0-70.0) Lymphocytes (%) (Auto) 4.3 % (9.0-44.0) 15.7 % (9.0-44.0) Monocytes (%) (Auto) 4.3 % (0.0-8.0) 8.9 % (0.0-8.0) Eosinophils (%) (Auto) 0.1 % (0.0-4.0) 1.1 % (0.0-4.0) Basophils (%) (Auto) 0.5 % (0.0-2.0) 1.2 % (0.0-2.0) Neutrophils # (Auto) 9.8 TH/MM3 (1.8-7.7) 5.9 TH/MM3 (1.8-7.7) Lymphocytes # (Auto) 0.5 TH/MM3 (1.0-4.8) 1.3 TH/MM3 (1.0-4.8) Monocytes # (Auto) 0.5 TH/MM3 (0-0.9) 0.7 TH/MM3 (0-0.9) Eosinophils # (Auto) 0.0 TH/MM3 (0-0.4) 0.1 TH/MM3 (0-0.4) Basophils # (Auto) 0.1 TH/MM3 (0-0.2) 0.1 TH/MM3 (0-0.2) CBC Comment AUTO DIFF AUTO DIFF Differential Total Cells Counted 100 100 Neutrophils % (Manual) 78 % (16-70) 70 % (16-70) Band Neutrophils % 20 % (0-6) 18 % (0-6) Lymphocytes % 1 % (9-44) 6 % (9-44) Monocytes % 1 % (0-8) 5 % (0-8) Neutrophils # (Manual) 10.6 TH/MM3 (1.8-7.7) 7.1 TH/MM3 (1.8-7.7) Differential Comment FINAL DIFF MANUAL FINAL DIFF MANUAL Toxic Granulation 1+ (NORMAL) Platelet Estimate LOW (NORMAL) LOW (NORMAL) Platelet Morphology Comment NORMAL (NORMAL) NORMAL (NORMAL) Prothrombin Time 17.4 SEC (9.8-11.6) Prothromb Time International Ratio 1.5 RATIO Blood Urea Nitrogen 11 MG/DL (7-18) 15 MG/DL (7-18) Creatinine 1.01 MG/DL (0.60-1.30) 1.14 MG/DL (0.60-1.30) Random Glucose 139 MG/DL (74-106) 111 MG/DL (74-106) Total Protein 7.0 GM/DL (6.4-8.2) 7.9 GM/DL (6.4-8.2) Albumin 2.4 GM/DL (3.4-5.0) 2.7 GM/DL (3.4-5.0) Calcium Level 7.7 MG/DL (8.5-10.1) 8.3 MG/DL (8.5-10.1) Phosphorus Level 2.7 MG/DL (2.5-4.9) Magnesium Level 1.7 MG/DL (1.5-2.5) Alkaline Phosphatase 112 U/L (45-117) 130 U/L (45-117) Aspartate Amino Transf (AST/SGOT) 68 U/L (15-37) 67 U/L (15-37) Alanine Aminotransferase (ALT/SGPT) 33 U/L (12-78) 32 U/L (12-78) Total Bilirubin 6.1 MG/DL (0.2-1.0) 4.4 MG/DL (0.2-1.0) Sodium Level 140 MEQ/L (136-145) 137 MEQ/L (136-145) Potassium Level 3.5 MEQ/L (3.5-5.1) 3.7 MEQ/L (3.5-5.1) Chloride Level 106 MEQ/L (98-107) 103 MEQ/L (98-107) Carbon Dioxide Level 26.5 MEQ/L (21.0-32.0) 29.9 MEQ/L (21.0-32.0) Anion Gap 8 MEQ/L (5-15) 4 MEQ/L (5-15) Estimat Glomerular Filtration Rate 74 ML/MIN (>89) 65 ML/MIN (>89) Lactic Acid Level 2.8 mmol/L (0.4-2.0) Total Creatine Kinase 65 U/L (39-308) Troponin I 0.87 NG/ML (0.02-0.05) Metamyelocytes 1 % (0-1) . Result Diagram: 04/27/17 0447 04/27/17 0447 Microbiology Microbiology Date/Time Source Procedure Growth Status 04/25/17 23:00 Blood Peripheral Aerobic Blood Culture - Preliminary NO GROWTH IN 2 DAYS Resulted 04/25/17 23:00 Blood Peripheral Anaerobic Blood Culture - Preliminary NO GROWTH IN 2 DAYS Resulted 04/25/17 23:00 Blood Peripheral Aerobic Blood Culture - Preliminary NO GROWTH IN 2 DAYS Resulted 04/25/17 23:00 Blood Peripheral Anaerobic Blood Culture - Preliminary NO GROWTH IN 2 DAYS Resulted 04/25/17 20:45 Blood Peripheral Aerobic Blood Culture - Preliminary NO GROWTH IN 2 DAYS Resulted 04/25/17 20:45 Anaerobic Blood Culture - Preliminary Gram Positive Cocci Resulted 04/25/17 20:40 Blood Peripheral Aerobic Blood Culture - Preliminary Streptococcus Species Resulted 04/25/17 20:40 Blood Peripheral Anaerobic Blood Culture - Preliminary NO GROWTH IN 2 DAYS Resulted 04/25/17 20:45 Nasal Washing Influenza Types A,B Antigen (ANICETO) - Final NEGATIVE FOR FLU A AND B ANTIGEN.... Complete 04/25/17 22:45 Urine Random Urine Urine Culture Pending Received . Imaging Last 72 hours Impressions Chest X-Ray 04/27/17 0600 Signed Impressions: Service Date/Time: Thursday, April 27, 2017 04:57 - CONCLUSION: Worsening bilateral airspace disease and right effusion. Fortino Cruz MD Chest X-Ray 04/25/172035 Signed Impressions: Service Date/Time: Tuesday, April 25, 2017 20:39 - CONCLUSION: Cardiomegaly. There is a possible mild right effusion. Fortino Woodson MD . Assessment and Plan Disease Oriented Problem List: (1) Atrial fibrillation with RVR (2) Chronic diastolic congestive heart failure (3) S/P TAVR (transcatheter aortic valve replacement) (4) Alcoholic cirrhosis of liver with ascites (5) Hepatitis C (6) Varices, esophageal Comment: hx of (7) Fever (8) Chronic low back pain (9) Deafness (10) History of discitis (11) ETOH abuse Comment: hx of (12) Drug abuse Comment: hx of. (13) Pancytopenia Symptom Scale: (1) Pain 0-10 Scale: 0 (2) Dyspnea 0-10 Scale: 0 Pertinent Non-Medical Issues Psychosocial: Spiritual: Legal: Ethical issues impacting care: Important Contacts Tawny Reno [phone] (daughter ). Nitish Ordoñez , (friend) Prognosis Hx of substance abuse, prothetic valve, hepatitic C, cirrohsis, gi bleed. currently in Afib. Given functional status, multiple hospitalizations, and multiple comorbidities, pt is appropriate for hospice if goals of care is consistent with comfort mesures only. Code Status: No Code Plan == NO CODE/DNR/DNI == Decision Maker: Healthcare surrogate designation form was completed on 2015 naming Anh Tiago as the healthcare surrogate decision maker, and the patient's stepdaughter (Tawny Gamez) as the alternate health care surrogate. However, I spoke with with Anh Ordoñez who stated she is no longer involved in the patient's life; she subsequently opted out of role of the healthcare surrogate decision maker. The patient's stepdaughter, Tawny, is the healthcare surrogate decision maker. == Patient's step-daughter reports her father has been declining. She states he spends most of he day in the recliner; he is needing more assistance with ADLs. She states when she arrives at his home to give him a bath he is often soaked in urine and covered in feces. 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 Unfortunately, patient has difficulty getting to his medical appointments locally. Tawny is not able to do this because she has 3 children and works 2 jobs. She states he has a history of medical non- compliance. == Cardiology states any further cardiac interventions would be difficult secondary to the patient's current thrombocytopenia. Recommendations were made for conservative, medical management at this time. == Palliative care met with the patient's step-daughter/HCS. Tawny's mother participated via conference call. We discussed patient's current clinical condition including patient's worsening respiratory status this morning, Cardizem drip, Precedex and thrombocytopenia. We again discussed ongoing aggressive interventions versus comfort focused care. The process of cardiopulmonary resuscitation including ACLS medications, compressions, cardioversion and intubation/mechanical ventilation was reviewed. Family has requested patient's CODE STATUS be changed to NO CODE-DNR/DNI. They ask that the patient be allowed to pass peacefully and naturally in the event that cardiac/respiratory arrest occurs. Requesting no further escalation in care such as vasopressors or invasive procedures. == Hospice consult pending, spoke with Arlette at hospice intake. == Discussed with Dr. Stone and bedside nurse. == Symptoms: * Dyspnea: Patient decompensated with morning; oxygen saturation in the low 90s on 7L via simple mask. CXR on admission showing cardiomegaly and possible mild right effusion. * Pain: No nonverbal signs or symptoms of pain on exam, on Precedex * Confusion: Likely multi-factorial, general decline, liver cirrhosis, hx of etoh abuse. == Palliative care will continue to follow patient throughout his hospitalization to establish trust, assist with symptom management and clarification of medical treatment goals. . Attestation To help prompt me to consider important information that might be impacting today's encounter and assessment, information from prior notes written by myself or my colleagues may have been "brought forward" into today's note. My signature on this note, however, is an attestation that I personally performed the exam, history, and/or decision-making noted today, and, unless otherwise indicated, the interactions with patient, family, and staff as well as the review of records all occurred today. I also attest that the listed assessment and stated plan reflect my best clinical judgment today based on the combination of historical information, prior notes, and today's exam/ interactions. When time spent is documented, it refers only to time spent today by the signer, or if indicated, combined time spent today by collaborating physician/nurse practitioner. . Arabella Mclaughlin Apr 27, 2017 11:25 am
[2017-04-27] MEDS: INSULIN ASPART SUPPLEMENTAL SCALE SQ SCH ×3 (11:48→21:00)
--- NOTE | 2017-04-27 14:16 | PD.CARD.PN ---
Subjective Subjective Remarks Patient seen this morning Appears confused, concern for respiratory status Objective Medications Current Medications Medications (Trade) Dose Ordered Sig/Blaire Route Start Time Stop Time Status Last Admin (Cardizem Cd) 120 mg DAILY PO 04/26/17 09:00 04/26/17 09:00 (Lopressor) 12.5 mg Q12HR PO 04/26/17 09:00 (Roxicodone) 10 mg Q6H PRN PO 04/25/17 23:30 04/26/17 21:59 (Vitamin B1) 100 mg DAILY PO 04/26/17 09:00 04/26/17 09:00 (Theragran) 1 tab DAILY PO 04/26/17 09:00 04/26/17 09:00 (NS Flush) 2 ml UNSCH PRN IV FLUSH 04/25/17 23:45 (NS Flush) 2 ml BID IV FLUSH 04/26/17 09:00 04/27/17 09:00 (Tylenol) 650 mg Q6H PRN PO 04/25/17 23:45 ([place] 5-325 Mg) 1 tab Q4H PRN PO 04/25/17 23:45 04/26/17 03:56 (Morphine Inj) 2 mg Q2H PRN IV PUSH 04/25/17 23:45 04/27/17 04:44 (Pepcid) 20 mg Q12HR PO 04/26/17 09:00 04/26/17 21:59 (Ativan Inj) 1 mg Q1H PRN IV PUSH 04/25/17 23:45 (Zofran Inj) 4 mg Q6H PRN IV PUSH 04/25/17 23:45 (Ambien) 5 mg HS PRN PO 04/25/17 23:45 (Duoneb Neb) 1 ampule Q2HR NEB PRN INH 04/25/17 23:45 Miscellaneous Information 1 Q361D XX 04/25/17 23:45 (Chlorhexidine 2% Cloth) 3 pack Taper DAILY@04 TOP 04/26/17 04:00 04/22/18 03:59 04/27/17 04:00 (Chlorhexidine 2% Cloth) 3 pack UNSCH PRN TOP 04/25/17 23:45 (Minna-Colace) 1 tab BID PO 04/26/17 09:00 04/26/17 21:59 (Milk Of Magnesia Liq) 30 ml Q12H PRN PO 04/25/17 23:45 (Senokot) 17.2 mg Q12H PRN PO 04/25/17 23:45 (Dulcolax Supp) 10 mg DAILY PRN RECTAL 04/25/17 23:45 (Lactulose Liq) 30 ml DAILY PRN PO 04/25/17 23:45 Cefepime HCl 2000 mg/Sodium Chloride 100 ml @ 200 mls/hr Q8H IV 04/27/17 08:00 (D50w (Vial) Inj) 50 ml UNSCH PRN IV PUSH 04/26/17 05:45 (Glucagon Inj) 1 mg UNSCH PRN OTHER 04/26/17 05:45 (NovoLOG SUPPLEMENTAL SCALE) 1 ACHS SLIDING SCALE SQ 04/26/17 08:00 (Aspirin) 325 mg DAILY PO 04/26/17 09:00 (Lipitor) 80 mg DAILY PO 04/26/17 09:00 04/26/17 09:00 Sodium Chloride 1,000 ml @ 15 mls/hr Q24H IV 04/26/17 18:45 (Lasix Inj) 40 mg BID@09,18 IV PUSH 04/27/17 18:00 Diltiazem HCl 125 mg/Sodium Chloride 125 ml @ 5 mls/hr TITRATE PRN IV 04/27/17 08:30 04/27/17 09:00 Vital Signs / I&O Vital Signs Date Time Temp Pulse Resp B/P (MAP) Pulse Ox O2 Delivery O2 Flow Rate FiO2 04/27/17 13:11 98.0 87 13 96/56 (69) 99 04/27/17 09:15 98.9 102 18 99 04/27/17 09:00 121 149/82 04/27/17 08:56 98.7 93 13 135/77 (96) 97 04/27/17 08:41 98.1 125 13 98 04/27/17 08:26 98.6 120 12 145/84 (104) 98 04/27/17 07:10 93 Simple Mask 7.00 04/27/17 04:00 98.2 112 25 121/75 (90) 90 04/27/17 00:00 98.4 97 18 106/67 (80) 92 04/26/17 23:00 91 04/26/17 20:00 98.6 103 23 109/67 (81) 96 04/26/17 19:05 95 21 04/26/17 16:00 98.7 88 25 98 04/26/17 15:00 82 I/O 04/26/17 04/26/17 04/26/17 04/27/17 04/27/17 04/27/17 07:00 15:00 23:00 07:00 15:00 23:00 Intake Total 2117 ml 510 ml 993 ml 515 ml Output Total 700 ml 250 ml 425 ml Balance 1417 ml 510 ml 743 ml -425 ml 515 ml Intake Oral 240 ml 400 ml IV Total 1877 ml 510 ml 593 ml 515 ml Output Urine Total 700 ml 250 ml 425 ml # Voids 1 # Bowel Movements 1 0 Physical Exam GENERAL: Increased respiratory drive SKIN: Warm and dry. HEAD: Atraumatic. Normocephalic. EYES: Pupils equal and round. No scleral icterus. No injection or drainage. ENT: No nasal bleeding or discharge. Mucous membranes pink and moist. NECK: Trachea midline. No JVD. CARDIOVASCULAR: Irregularly irregular RESPIRATORY: No accessory muscle use. Decreased breath sounds bilaterally GASTROINTESTINAL: Abdomen soft, non-tender, nondistended. Hepatic and splenic margins not palpable. MUSCULOSKELETAL: Extremities without clubbing, cyanosis, or edema. No obvious deformities. NEUROLOGICAL: Awake and alert. No obvious cranial nerve deficits. Motor grossly within normal limits. Five out of 5 muscle strength in the arms and legs. Normal speech. PSYCHIATRIC: Appropriate mood and affect; insight and judgment normal. Laboratory Laboratory Tests Test 04/27/17 04:47 White Blood Count 8.0 TH/MM3 Red Blood Count 3.19 MIL/MM3 Hemoglobin 12.3 GM/DL Hematocrit 36.8 % Mean Corpuscular Volume 115.3 FL Mean Corpuscular Hemoglobin 38.7 PG Mean Corpuscular Hemoglobin Concent 33.5 % Red Cell Distribution Width 16.0 % Platelet Count 68 TH/MM3 Mean Platelet Volume 8.8 FL Neutrophils (%) (Auto) 73.1 % Lymphocytes (%) (Auto) 15.7 % Monocytes (%) (Auto) 8.9 % Eosinophils (%) (Auto) 1.1 % Basophils (%) (Auto) 1.2 % Neutrophils # (Auto) 5.9 TH/MM3 Lymphocytes # (Auto) 1.3 TH/MM3 Monocytes # (Auto) 0.7 TH/MM3 Eosinophils # (Auto) 0.1 TH/MM3 Basophils # (Auto) 0.1 TH/MM3 CBC Comment AUTO DIFF Differential Total Cells Counted 100 Neutrophils % (Manual) 70 % Band Neutrophils % 18 % Lymphocytes % 6 % Monocytes % 5 % Neutrophils # (Manual) 7.1 TH/MM3 Metamyelocytes 1 % Differential Comment FINAL DIFF MANUAL Platelet Estimate LOW Platelet Morphology Comment NORMAL Blood Urea Nitrogen 15 MG/DL Creatinine 1.14 MG/DL Random Glucose 111 MG/DL Total Protein 7.9 GM/DL Albumin 2.7 GM/DL Calcium Level 8.3 MG/DL Alkaline Phosphatase 130 U/L Aspartate Amino Transf (AST/SGOT) 67 U/L Alanine Aminotransferase (ALT/SGPT) 32 U/L Total Bilirubin 4.4 MG/DL Sodium Level 137 MEQ/L Potassium Level 3.7 MEQ/L Chloride Level 103 MEQ/L Carbon Dioxide Level 29.9 MEQ/L Anion Gap 4 MEQ/L Estimat Glomerular Filtration Rate 65 ML/MIN Assessment and Plan Problem List: (1) Paravalvular leak of prosthetic heart valve ICD Codes: T82.03XA - Leakage of heart valve prosthesis, initial encounter (2) Chronic diastolic congestive heart failure ICD Codes: I50.32 - Chronic diastolic (congestive) heart failure Status: Chronic (3) Atrial fibrillation with RVR ICD Codes: I48.91 - Unspecified atrial fibrillation Status: Resolved (4) S/P TAVR (transcatheter aortic valve replacement) ICD Codes: Z95.2 - Presence of prosthetic heart valve Status: Acute (5) Alcoholic cirrhosis of liver with ascites ICD Codes: K70.31 - Alcoholic cirrhosis of liver with ascites Status: Chronic (6) Pancytopenia ICD Codes: D61.818 - Other pancytopenia Status: Acute (7) Varices, esophageal ICD Codes: I85.00 - Esophageal varices without bleeding Status: Acute (8) Deafness ICD Codes: H91.90 - Unspecified hearing loss, unspecified ear Status: Chronic (9) Dyspnea ICD Codes: R06.00 - Dyspnea, unspecified (10) Elevated troponin ICD Codes: R74.8 - Abnormal levels of other serum enzymes Status: Acute Assessment and Plan 1) Afib with RVR Cardizem to try for heart rate control 2) Moderate paravalvular leak from previous TAVR Fluid overload state after 4-5L Lasix 80mg IV this am Place [place] 3) Elevated troponin Possible Type 1 vs Type 2 Not an invasive candidate at this time with significant thrombocytopenia 4) SOB Most likely due to fluid overload state with moderate paravalvular AR 5) Discussed with Bradly Brannon DO Apr 27, 2017 14:16
--- NOTE | 2017-04-27 16:12 | HHI.CCPN ---
Subjective Remarks/Hospital Course 04/25: 66-year-old deaf gentleman presents after he had the onset of nausea and vomiting at about 2 PM. He had the onset of chest pain at about 3 PM. He reports 3 episodes of emesis. He also some shortness of breath and states that he feels hot. No diaphoresis. He was found to be in AF with RVR by EMS and was treated with Cardizem. He was also given aspirin and nitroglycerin per EMS. In the emergency department he was found to have a low-grade fever as well. 04/26: Patient received 4 L of IV fluids overnight for hypotension. Discussed with Dr. Tucker Hoffman from cardiology this morning. Patient was reportedly on hospice following a tablet done at [facility] and had refused follow-up with [facility] at that time. When I evaluated the patient he was resting in bed and did not appear to be in any acute distress on nasal cannula. He was on a Cardizem drip at 10 mg per hour with rate controlled A. fib. 04/27: Drowsy, arousable. Remains in A. fib RVR. Having difficulties with breathing. Objective Vital Signs Date Time Temp Pulse Resp B/P (MAP) Pulse Ox O2 Delivery O2 Flow Rate FiO2 04/27/17 14:00 83 04/27/17 13:11 98.0 13 96/56 (69) 99 04/27/17 07:10 Simple Mask 7.00 04/26/17 19:05 21 Intake and Output 04/27/17 04/27/17 04/28/17 08:00 16:00 00:00 Intake Total 515 ml Output Total 425 ml Balance -425 ml 515 ml Result Diagram: 04/27/17 0447 04/27/17 0447 Other Results Microbiology Date/Time Source Procedure Growth Status 04/25/17 20:45 Nasal Washing Influenza Types A,B Antigen (ANICETO) - Final NEGATIVE FOR FLU A AND B ANTIGEN.... Complete 04/25/17 22:45 Urine Random Urine Urine Culture - Final 50-100,000 CFU/ML MIXED ROBERT... Complete Imaging Last Impressions Chest X-Ray 04/25/172035 Signed Impressions: Service Date/Time: Tuesday, April 25, 2017 20:39 - CONCLUSION: Cardiomegaly. There is a possible mild right effusion. Fortino Woodson MD Objective Remarks GENERAL: Well-nourished, well-developed patient. SKIN: Warm and dry. HEAD: Normocephalic. EYES: No scleral icterus. No injection or drainage. NECK: Supple, trachea midline. No JVD or lymphadenopathy. CARDIOVASCULAR: S1 and S2 irregularly irregular. RESPIRATORY: Breath sounds equal bilaterally. No accessory muscle use. No wheezing or crackles. GASTROINTESTINAL: Abdomen soft, non-tender, nondistended. MUSCULOSKELETAL: No cyanosis. Bilateral pedal edema BACK: Nontender without obvious deformity. NEURO EXAM: Drowsy, easily arousable,, following commands, has deafness(long-standing), moves all 4 extremities A/P Assessment and Plan A. fib with RVR - Cardizem drip - Series of troponins - Series of EKGs - 2-D echo - Hold anticoagulation due to thrombocytopenia, 54 Elevated troponin - No ST changes on EKG - Cardiology consult - 2-D echo - Aspirin - Atorvastatin - Hold anticoagulation due to severe thrombocytopenia - KVO IVF. Not responding with diuretics. -Patient apparently has had a TAVR before per Dr. Tucker Hoffman Fever with tachycardia and bandemia - Broad-spectrum antibiotic - Pancultures - De-escalate per sensitivity Diabetes - Insulin sliding scale Thrombocytopenia - Underlying liver cirrhosis - Monitor trend transfuse for platelets less than 20 Liver cirrhosis - Supportive care DVT GI prophylaxis - Teds SCDs - Hold pharmacological DVT prophylaxis due to severe thrombocytopenia - Pepcid Patient being followed by palliative care team. They have discussed his condition with his daughter and she has elected to make him DNR status with no further invasive procedures. Considering hospice. DNR status currently. Rigo Stone MD Apr 27, 2017 16:12
[2017-04-27] MEDS: FUROSEMIDE 40 MG/4 ML VIAL IV PUSH SCH (18:00)
[2017-04-27] MEDS: SODIUM CHLOR 0.9% 1000 ML INJ 1,000 ML IV SCH (18:45)
[2017-04-28] VITALS (14 sets, daily range): BP systolic 68–108; BP diastolic 43–65; PULSE 70–99; RESP 12–29; TEMP 96.9–98.4; O2SAT 88–100
[2017-04-28] MEDS: CEFEPIME INJ 2,000 MG in SODIUM CHLORIDE 0.9% INJ 100 ML IV SCH ×2 (01:58→09:23)
[2017-04-28] MEDS: SODIUM CHLORIDE 0.9% FLUSH 10 ML FLUSH IV FLUSH SCH ×3 (01:59→19:55)
[2017-04-28] MEDS: CHLORHEXIDINE GLUCONATE 2 % 1 PACK (2 CLOTHS) TOP SCH (04:00)
--- NOTE | 2017-04-28 05:26 | RADRPT ---
EXAM DATE/TIME: 04/28/2017 04:11 [place] COMPARISON: CHEST SINGLE AP, April 27, 2017, 4:57. INDICATIONS : Shortness of breath, possible pulmonary disease. MEDICAL HISTORY : Hypertension. Diabetes mellitus type II. Congestive heart failure. SURGICAL HISTORY : None. ENCOUNTER: Subsequent ACUITY: 3 days PAIN SCORE: Non-responsive. LOCATION: Bilateral chest FINDINGS: Right greater than left basilar predominant consolidation with small effusions again noted, both side s slightly improved in the interim. No pneumothorax. Mild cardiomegaly is stable. CONCLUSION: Slightly improved. Fortino Cruz MD on April 28, 2017 at 5:24 Board Certified Radiologist. This report was verified electronically.
[2017-04-28 07:13] LABS: AUTOMATED NEUTROPHIL # 5.4 TH/MM3 (1.8-7.7); BASOPHIL % 0.7 % (0.0-2.0); EOSINOPHIL % 0.6 % (0.0-4.0); HEMATOCRIT 35.4 % (39.0-51.0); LYMPH % 13.2 % (9.0-44.0); LYMPHOCYTE # 0.9 TH/MM3 (1.0-4.8); MEAN CELL VOLUME 119.3 FL (80.0-100.0); MEAN CORPUSCULAR HEMOGLOBIN 38.3 PG (27.0-34.0); MEAN CORPUSCULAR HGB CONC 32.1 % (32.0-36.0); MONO % 10.7 % (0.0-8.0); NEUT % 74.8 % (16.0-70.0); PLATELET COUNT 46 TH/MM3 (150-450); RED BLOOD COUNT 2.97 MIL/MM3 (4.50-5.90); RED CELL DISTRIBUTION WIDTH 16.3 % (11.6-17.2); WHITE BLOOD COUNT 7.2 TH/MM3 (4.0-11.0)
[2017-04-28 07:14] LABS: ALT (GPT) 26 U/L (12-78); ANION GAP 6 MEQ/L (5-15); AST (GOT) 53 U/L (15-37); BICARBONATE 27.9 MEQ/L (21.0-32.0); BLOOD UREA NITROGEN 20 MG/DL (7-18); CHLORIDE 105 MEQ/L (98-107); GLOMERULAR FILTRATION RATE 41 ML/MIN (>89); POTASSIUM 4.3 MEQ/L (3.5-5.1); SODIUM (NA) 139 MEQ/L (136-145)
[2017-04-28 07:15] LABS: ALKALINE PHOSPHATASE 96 U/L (45-117); TOTAL BILIRUBIN ADULT 3.1 MG/DL (0.2-1.0)
[2017-04-28 07:22] LABS: HEMO FLAGS AUTO DIFF
[2017-04-28] MEDS: INSULIN ASPART SUPPLEMENTAL SCALE SQ SCH ×3 (08:00→17:00)
[2017-04-28] MEDS: DILTIAZEM-CD 120 MG CAP ER PO SCH (09:00)
[2017-04-28] MEDS: ASPIRIN 325 MG TAB PO SCH (09:00)
[2017-04-28] MEDS: FAMOTIDINE 20 MG TAB PO SCH ×2 (09:00→19:45)
[2017-04-28] MEDS: THIAMINE HCL 100 MG TAB PO SCH (09:00)
[2017-04-28] MEDS: METOPROLOL TARTRATE 25 MG TAB PO SCH ×2 (09:00→19:45)
[2017-04-28] MEDS: MULTIVITAMIN TAB PO SCH (09:00)
[2017-04-28] MEDS: ATORVASTATIN 80 MG TAB PO SCH (09:00)
[2017-04-28] MEDS: DOCUSATE SODIUM 50 MG/SENNA 8.6 MG TAB PO SCH ×2 (09:00→19:45)
[2017-04-28] MEDS: FUROSEMIDE 40 MG/4 ML VIAL IV PUSH SCH ×2 (09:22→17:55)
[2017-04-28 09:52] LABS: SCAN/DIFF AUTO DIFF CONFIRMED
--- NOTE | 2017-04-28 11:53 | PD.CARD.PN ---
Subjective Subjective Remarks More lethargic today Barely arousable this morning Objective Medications Current Medications Medications (Trade) Dose Ordered Sig/[place] Route Start Time Stop Time Status Last Admin (Cardizem Cd) 120 mg DAILY PO 04/26/17 09:00 04/26/17 09:00 (Lopressor) 12.5 mg Q12HR PO 04/26/17 09:00 (Roxicodone) 10 mg Q6H PRN PO 04/25/17 23:30 04/26/17 21:59 (Vitamin B1) 100 mg DAILY PO 04/26/17 09:00 04/26/17 09:00 (Theragran) 1 tab DAILY PO 04/26/17 09:00 04/26/17 09:00 (NS Flush) 2 ml UNSCH PRN IV FLUSH 04/25/17 23:45 (NS Flush) 2 ml BID IV FLUSH 04/26/17 09:00 04/28/17 09:22 (Tylenol) 650 mg Q6H PRN PO 04/25/17 23:45 ([place] 5-325 Mg) 1 tab Q4H PRN PO 04/25/17 23:45 04/26/17 03:56 (Morphine Inj) 2 mg Q2H PRN IV PUSH 04/25/17 23:45 04/27/17 04:44 (Pepcid) 20 mg Q12HR PO 04/26/17 09:00 04/26/17 21:59 (Ativan Inj) 1 mg Q1H PRN IV PUSH 04/25/17 23:45 (Zofran Inj) 4 mg Q6H PRN IV PUSH 04/25/17 23:45 (Ambien) 5 mg HS PRN PO 04/25/17 23:45 (Duoneb Neb) 1 ampule Q2HR NEB PRN INH 04/25/17 23:45 Miscellaneous Information 1 Q361D XX 04/25/17 23:45 (Chlorhexidine 2% Cloth) 3 pack Taper DAILY@04 TOP 04/26/17 04:00 04/22/18 03:59 04/28/17 04:00 (Chlorhexidine 2% Cloth) 3 pack UNSCH PRN TOP 04/25/17 23:45 (Minna-Colace) 1 tab BID PO 04/26/17 09:00 04/26/17 21:59 (Milk Of Magnesia Liq) 30 ml Q12H PRN PO 04/25/17 23:45 (Senokot) 17.2 mg Q12H PRN PO 04/25/17 23:45 (Dulcolax Supp) 10 mg DAILY PRN RECTAL 04/25/17 23:45 (Lactulose Liq) 30 ml DAILY PRN PO 04/25/17 23:45 Cefepime HCl 2000 mg/Sodium Chloride 100 ml @ 200 mls/hr Q8H IV 04/27/17 08:00 04/28/17 09:23 (D50w (Vial) Inj) 50 ml UNSCH PRN IV PUSH 04/26/17 05:45 (Glucagon Inj) 1 mg UNSCH PRN OTHER 04/26/17 05:45 (NovoLOG SUPPLEMENTAL SCALE) 1 ACHS SLIDING SCALE SQ 04/26/17 08:00 (Aspirin) 325 mg DAILY PO 04/26/17 09:00 (Lipitor) 80 mg DAILY PO 04/26/17 09:00 04/26/17 09:00 Sodium Chloride 1,000 ml @ 15 mls/hr Q24H IV 04/26/17 18:45 (Lasix Inj) 40 mg BID@09,18 IV PUSH 04/27/17 18:00 04/28/17 09:22 Diltiazem HCl 125 mg/Sodium Chloride 125 ml @ 5 mls/hr TITRATE PRN IV 04/27/17 08:30 04/27/17 09:00 Vital Signs / I&O Vital Signs Date Time Temp Pulse Resp B/P (MAP) Pulse Ox O2 Delivery O2 Flow Rate FiO2 04/28/17 10:00 78 04/28/17 08:02 100 Simple Mask 8.00 04/28/17 08:00 80 04/28/17 08:00 97.9 80 12 87/49 (62) 100 04/28/17 06:00 81 04/28/17 04:00 70 04/28/17 04:00 98.3 70 15 68/43 (51) 100 04/28/17 03:33 100 Simple Mask 04/28/17 02:00 76 04/28/17 00:00 76 04/28/17 00:00 98.1 76 13 79/48 (58) 100 04/27/17 23:44 100 Simple Mask 8.00 10/4/17 22:00 77 04/27/17 20:15 100 Simple Mask 8.00 04/27/17 20:00 98.3 77 14 80/53 (62) 100 04/27/17 20:00 77 04/27/17 18:00 86 04/27/17 17:11 97.9 85 13 88/56 (67) 100 04/27/17 16:00 83 04/27/17 14:00 83 04/27/17 13:11 98.0 87 13 96/56 (69) 99 04/27/17 12:00 91 I/O 04/27/17 04/27/17 04/27/17 04/28/17 04/28/17 04/28/17 07:00 15:00 23:00 07:00 15:00 23:00 Intake Total 515 ml 150 ml Output Total 425 ml 75 ml 100 ml Balance -425 ml 515 ml -75 ml 50 ml IV Total 515 ml 150 ml Output Urine Total 425 ml 75 ml 100 ml # Bowel Movements 0 0 0 Physical Exam GENERAL: NAD, lethargic SKIN: Warm and dry. HEAD: Atraumatic. Normocephalic. EYES: Pupils equal and round. No scleral icterus. No injection or drainage. ENT: No nasal bleeding or discharge. Mucous membranes pink and moist. NECK: Trachea midline. No JVD. CARDIOVASCULAR: Irregularly irregular RESPIRATORY: No accessory muscle use. Decreased breath sounds bilaterally GASTROINTESTINAL: Abdomen soft, non-tender, nondistended. Hepatic and splenic margins not palpable. MUSCULOSKELETAL: Extremities without clubbing, cyanosis, or edema. No obvious deformities. NEUROLOGICAL: Awake and alert. No obvious cranial nerve deficits. Motor grossly within normal limits. Five out of 5 muscle strength in the arms and legs. Normal speech. PSYCHIATRIC: Appropriate mood and affect; insight and judgment normal. Laboratory Laboratory Tests Test 04/28/17 05:32 White Blood Count 7.2 TH/MM3 Red Blood Count 2.97 MIL/MM3 Hemoglobin 11.4 GM/DL Hematocrit 35.4 % Mean Corpuscular Volume 119.3 FL Mean Corpuscular Hemoglobin 38.3 PG Mean Corpuscular Hemoglobin Concent 32.1 % Red Cell Distribution Width 16.3 % Platelet Count 46 TH/MM3 Mean Platelet Volume 9.3 FL Neutrophils (%) (Auto) 74.8 % Lymphocytes (%) (Auto) 13.2 % Monocytes (%) (Auto) 10.7 % Eosinophils (%) (Auto) 0.6 % Basophils (%) (Auto) 0.7 % Neutrophils # (Auto) 5.4 TH/MM3 Lymphocytes # (Auto) 0.9 TH/MM3 Monocytes # (Auto) 0.8 TH/MM3 Eosinophils # (Auto) 0.0 TH/MM3 Basophils # (Auto) 0.0 TH/MM3 CBC Comment AUTO DIFF Differential Comment AUTO DIFF CONFIRMED Basophilic Stippling MOD Blood Urea Nitrogen 20 MG/DL Creatinine 1.70 MG/DL Random Glucose 99 MG/DL Total Protein 6.5 GM/DL Albumin 2.2 GM/DL Calcium Level 8.2 MG/DL Alkaline Phosphatase 96 U/L Aspartate Amino Transf (AST/SGOT) 53 U/L Alanine Aminotransferase (ALT/SGPT) 26 U/L Total Bilirubin 3.1 MG/DL Sodium Level 139 MEQ/L Potassium Level 4.3 MEQ/L Chloride Level 105 MEQ/L Carbon Dioxide Level 27.9 MEQ/L Anion Gap 6 MEQ/L Estimat Glomerular Filtration Rate 41 ML/MIN Assessment and Plan Problem List: (1) Paravalvular leak of prosthetic heart valve ICD Codes: T82.03XA - Leakage of heart valve prosthesis, initial encounter (2) Chronic diastolic congestive heart failure ICD Codes: I50.32 - Chronic diastolic (congestive) heart failure Status: Chronic (3) Atrial fibrillation with RVR ICD Codes: I48.91 - Unspecified atrial fibrillation Status: Resolved (4) S/P TAVR (transcatheter aortic valve replacement) ICD Codes: Z95.2 - Presence of prosthetic heart valve Status: Acute (5) Alcoholic cirrhosis of liver with ascites ICD Codes: K70.31 - Alcoholic cirrhosis of liver with ascites Status: Chronic (6) Pancytopenia ICD Codes: D61.818 - Other pancytopenia Status: Acute (7) Varices, esophageal ICD Codes: I85.00 - Esophageal varices without bleeding Status: Acute (8) Deafness ICD Codes: H91.90 - Unspecified hearing loss, unspecified ear Status: Chronic (9) Dyspnea ICD Codes: R06.00 - Dyspnea, unspecified (10) Elevated troponin ICD Codes: R74.8 - Abnormal levels of other serum enzymes Status: Acute (11) Bacteremia ICD Codes: R78.81 - Bacteremia Status: Acute Assessment and Plan 1) Afib with RVR Cardizem to try for heart rate control 2) Moderate paravalvular leak from previous TAVR Fluid overload state after 4-5L Dash placed Lasix given 3) Elevated troponin Possible Type 1 vs Type 2 Not an invasive candidate at this time with significant thrombocytopenia 4) SOB Most likely due to fluid overload state with moderate paravalvular AR 5) Blood cultures positive for Strep [facility] Bradly Hoffman DO Apr 28, 2017 11:53
--- NOTE | 2017-04-28 14:01 | HHI.HCPN ---
Reason for visit a. To assist with evaluation and management of symptoms including:dyspnea, pain, confusion b. To assist medical decision maker(s) with: better understanding of current medical conditions; weighing benefits/burdens of medical treatment options; making medical treatment decisions. . (Arabella Mclaughlin) Subjective/Interval History Patient seen and assessed in [facility] – [place], [place], room 504. Oxygen saturations 92% on 8L via simple mask; respirations are shallow; respiratory rate of 13. Hypotensive, BP 90/53. Follow-up chest x-ray on 04/27/2017 showing worsening bilateral airspace disease and right effusion, slightly improved this morning. Patient is deaf. He arouses to tactile stimuli on exam. Grimacing and saying "my hip." Nurse, Chaim, notified. Cardiology was consulted on secondary to patient's atrial fibrillation and elevated troponin of 0.87. Dr. Hoffman evaluated the patient who is on a Cardizem drip for rate control secondary to his A. fib with RVR. He has a TAVR with moderate aortic regurgitation; he received 4-5 liters of fluid which may have stressed his heart causing his troponin level to be elevated. Patient is not a candidate for aggressive cardiac interventions at this time given his thrombocytopenia. Platelets of 68. Recommendations to treat the patient medically. Palliative care spoke with patient's step-daughter (Tawny) yesterday. She is the designated HCS. After discussing the patient current clinical decision and recent decline, she requested the patient's CODE STATUS be changed to NO CODE. She requested no escalation in the patient's care with no further invasive procedures. Hospice consulted yesterday. . (Arabella Mclaughlin) Advance Directives Living Will: Never completed Health Care Surrogate: Never completed Durable Power of Family Support Specialist: Never completed (Arabella Mclaughlin) Advance Directive Specifics Significant change in goals: Hospice consult pending. . (Arabella Mclaughlin) Objective Vital Signs Date Time Temp Pulse Resp B/P (MAP) Pulse Ox O2 Delivery O2 Flow Rate FiO2 04/28/17 10:00 78 04/28/17 08:02 100 Simple Mask 8.00 04/28/17 08:00 80 04/28/17 08:00 97.9 80 12 87/49 (62) 100 04/28/17 06:00 81 04/28/17 04:00 70 04/28/17 04:00 98.3 70 15 68/43 (51) 100 04/28/17 03:33 100 Simple Mask 04/28/17 02:00 76 04/28/17 00:00 76 04/28/17 00:00 98.1 76 13 79/48 (58) 100 04/27/17 23:44 100 Simple Mask 8.00 04/27/17 22:00 77 04/27/17 20:15 100 Simple Mask 8.00 04/27/17 20:00 98.3 77 14 80/53 (62) 100 04/27/17 20:00 77 04/27/17 18:00 86 04/27/17 17:11 97.9 85 13 88/56 (67) 100 04/27/17 16:00 83 04/27/17 14:00 83 Intake & Output 04/28/17 04/28/17 07:00 19:00 Intake Total 150 ml Output Total 100 ml Balance 50 ml IV Total 150 ml Output Urine Total 100 ml # Bowel Movements 0 . Physical Exam CONSTITUTIONAL/GENERAL: This is an adequately nourished patient with deteriorating respiratory status, now on 8L oxygen via simple mask. TUBES/LINES/DRAINS: Dash cath, PIV SKIN: Warm and dry. HEAD: Atraumatic. Normocephalic. EYES: Pupils equal and round. No injection or drainage. Fundi not examined. ENT: Deaf. Nose without bleeding or purulent drainage. NECK: Trachea midline. CARDIOVASCULAR: Irregularly irregular RESPIRATORY/CHEST: Respirations shallow on 8L oxygen via simple mask. Breath sounds diminished bilaterally GASTROINTESTINAL: Abdomen soft, non-tender, nondistended. No guarding. Bowel sounds present. GENITOURINARY: Without palpable bladder distension. Dash catheter in place. MUSCULOSKELETAL: Extremities 2+ edema up to knee bilaterally. No mottling or clubbing. LYMPHATICS: No palpable cervical or supraclavicular adenopathy. NEUROLOGICAL: Arouses to tactile stimuli, moving upper extremities PSYCHIATRIC: No obvious anxiety/depression. no apparent hallucinations or other psychotic thought process. Intermittent confusion. . (Arabella Mclaughlin) Diagnostic Tests Laboratory Laboratory Tests Test 04/25/17 20:45 04/25/17 22:45 04/25/17 23:35 04/26/17 01:30 White Blood Count 8.9 TH/MM3 (4.0-11.0) Red Blood Count 3.15 MIL/MM3 (4.50-5.90) Hemoglobin 12.1 GM/DL (13.0-17.0) Hematocrit 35.8 % (39.0-51.0) Mean Corpuscular Volume 113.6 FL (80.0-100.0) Mean Corpuscular Hemoglobin 38.5 PG (27.0-34.0) Mean Corpuscular Hemoglobin Concent 33.9 % (32.0-36.0) Red Cell Distribution Width 15.2 % (11.6-17.2) Platelet Count 67 TH/MM3 (150-450) Mean Platelet Volume 8.9 FL (7.0-11.0) Neutrophils (%) (Auto) 88.1 % (16.0-70.0) Lymphocytes (%) (Auto) 6.5 % (9.0-44.0) Monocytes (%) (Auto) 4.1 % (0.0-8.0) Eosinophils (%) (Auto) 0.5 % (0.0-4.0) Basophils (%) (Auto) 0.8 % (0.0-2.0) Neutrophils # (Auto) 7.8 TH/MM3 (1.8-7.7) Lymphocytes # (Auto) 0.6 TH/MM3 (1.0-4.8) Monocytes # (Auto) 0.4 TH/MM3 (0-0.9) Eosinophils # (Auto) 0.0 TH/MM3 (0-0.4) Basophils # (Auto) 0.1 TH/MM3 (0-0.2) CBC Comment AUTO DIFF Differential Total Cells Counted 100 Neutrophils % (Manual) 84 % (16-70) Band Neutrophils % 11 % (0-6) Lymphocytes % 1 % (9-44) Monocytes % 4 % (0-8) Neutrophils # (Manual) 8.5 TH/MM3 (1.8-7.7) Differential Comment FINAL DIFF MANUAL Platelet Estimate LOW (NORMAL) Platelet Morphology Comment NORMAL (NORMAL) Blood Urea Nitrogen 11 MG/DL (7-18) Creatinine 0.90 MG/DL (0.60-1.30) Random Glucose 91 MG/DL (74-106) Total Protein 7.0 GM/DL (6.4-8.2) Albumin 2.3 GM/DL (3.4-5.0) Calcium Level 8.2 MG/DL (8.5-10.1) Alkaline Phosphatase 130 U/L (45-117) Aspartate Amino Transf (AST/SGOT) 73 U/L (15-37) Alanine Aminotransferase (ALT/SGPT) 30 U/L (12-78) Total Bilirubin 5.3 MG/DL (0.2-1.0) Sodium Level 142 MEQ/L (136-145) Potassium Level 3.4 MEQ/L (3.5-5.1) Chloride Level 106 MEQ/L (98-107) Carbon Dioxide Level 25.8 MEQ/L (21.0-32.0) Anion Gap 10 MEQ/L (5-15) Estimat Glomerular Filtration Rate 85 ML/MIN (>89) Lactic Acid Level 3.7 mmol/L (0.4-2.0) 2.7 mmol/L (0.4-2.0) Total Creatine Kinase 50 U/L (39-308) Troponin I 0.12 NG/ML (0.02-0.05) Urine Color YELLOW (YELLW/STRAW) Urine Turbidity CLEAR (CLEAR) Urine pH 7.0 (5.0-8.5) Urine Specific [place] 1.015 (1.002-1.035) Urine Protein 300 mg/dL (NEG-TRACE) Urine Glucose (UA) NEG mg/dL (NEG) Urine Ketones NEG mg/dL (NEG) Urine Occult Blood MOD (NEG) Urine Nitrite NEG (NEG) Urine Bilirubin SMALL (NEG) Urine Urobilinogen 2.0 MG/DL (LESS THAN Urine Leukocyte Esterase NEG (NEG) Urine RBC 32 /hpf (0-3) Urine WBC 3 /hpf (0-5) Urine Squamous Epithelial Cells 1 /hpf (0-5) Urine Amorphous Sediment RARE Urine Hyaline Casts 1 /lpf (RARE) Urine Mucus FEW /lpf (OCC) Microscopic Urinalysis Comment CATH-CULT NOT IND Urine Opiates Screen NEG (NEG) Urine Barbiturates Screen NEG (NEG) Urine Amphetamines Screen NEG (NEG) Urine Benzodiazepines Screen NEG (NEG) Urine Cocaine Screen NEG (NEG) Urine Cannabinoids Screen NEG (NEG) Nasal Screen MRSA (PCR) MRSA NOT DETECTED (NOT Test 04/26/17 03:50 04/27/17 04:47 04/28/17 05:32 White Blood Count 10.8 TH/MM3 (4.0-11.0) 8.0 TH/MM3 (4.0-11.0) 7.2 TH/MM3 (4.0-11.0) Red Blood Count 2.93 MIL/MM3 (4.50-5.90) 3.19 MIL/MM3 (4.50-5.90) 2.97 MIL/MM3 (4.50-5.90) Hemoglobin 11.5 GM/DL (13.0-17.0) 12.3 GM/DL (13.0-17.0) 11.4 GM/DL (13.0-17.0) Hematocrit 33.8 % (39.0-51.0) 36.8 % (39.0-51.0) 35.4 % (39.0-51.0) Mean Corpuscular Volume 115.2 FL (80.0-100.0) 115.3 FL (80.0-100.0) 119.3 FL (80.0-100.0) Mean Corpuscular Hemoglobin 39.2 PG (27.0-34.0) 38.7 PG (27.0-34.0) 38.3 PG (27.0-34.0) Mean Corpuscular Hemoglobin Concent 34.0 % (32.0-36.0) 33.5 % (32.0-36.0) 32.1 % (32.0-36.0) Red Cell Distribution Width 15.3 % (11.6-17.2) 16.0 % (11.6-17.2) 16.3 % (11.6-17.2) Platelet Count 54 TH/MM3 (150-450) 68 TH/MM3 (150-450) 46 TH/MM3 (150-450) Mean Platelet Volume 7.8 FL (7.0-11.0) 8.8 FL (7.0-11.0) 9.3 FL (7.0-11.0) Neutrophils (%) (Auto) 90.8 % (16.0-70.0) 73.1 % (16.0-70.0) 74.8 % (16.0-70.0) Lymphocytes (%) (Auto) 4.3 % (9.0-44.0) 15.7 % (9.0-44.0) 13.2 % (9.0-44.0) Monocytes (%) (Auto) 4.3 % (0.0-8.0) 8.9 % (0.0-8.0) 10.7 % (0.0-8.0) Eosinophils (%) (Auto) 0.1 % (0.0-4.0) 1.1 % (0.0-4.0) 0.6 % (0.0-4.0) Basophils (%) (Auto) 0.5 % (0.0-2.0) 1.2 % (0.0-2.0) 0.7 % (0.0-2.0) Neutrophils # (Auto) 9.8 TH/MM3 (1.8-7.7) 5.9 TH/MM3 (1.8-7.7) 5.4 TH/MM3 (1.8-7.7) Lymphocytes # (Auto) 0.5 TH/MM3 (1.0-4.8) 1.3 TH/MM3 (1.0-4.8) 0.9 TH/MM3 (1.0-4.8) Monocytes # (Auto) 0.5 TH/MM3 (0-0.9) 0.7 TH/MM3 (0-0.9) 0.8 TH/MM3 (0-0.9) Eosinophils # (Auto) 0.0 TH/MM3 (0-0.4) 0.1 TH/MM3 (0-0.4) 0.0 TH/MM3 (0-0.4) Basophils # (Auto) 0.1 TH/MM3 (0-0.2) 0.1 TH/MM3 (0-0.2) 0.0 TH/MM3 (0-0.2) CBC Comment AUTO DIFF AUTO DIFF AUTO DIFF Differential Total Cells Counted 100 100 Neutrophils % (Manual) 78 % (16-70) 70 % (16-70) Band Neutrophils % 20 % (0-6) 18 % (0-6) Lymphocytes % 1 % (9-44) 6 % (9-44) Monocytes % 1 % (0-8) 5 % (0-8) Neutrophils # (Manual) 10.6 TH/MM3 (1.8-7.7) 7.1 TH/MM3 (1.8-7.7) Differential Comment FINAL DIFF MANUAL FINAL DIFF MANUAL AUTO DIFF CONFIRMED Toxic Granulation 1+ (NORMAL) Platelet Estimate LOW (NORMAL) LOW (NORMAL) Platelet Morphology Comment NORMAL (NORMAL) NORMAL (NORMAL) Prothrombin Time 17.4 SEC (9.8-11.6) Prothromb Time International Ratio 1.5 RATIO Blood Urea Nitrogen 11 MG/DL (7-18) 15 MG/DL (7-18) 20 MG/DL (7-18) Creatinine 1.01 MG/DL (0.60-1.30) 1.14 MG/DL (0.60-1.30) 1.70 MG/DL (0.60-1.30) Random Glucose 139 MG/DL (74-106) 111 MG/DL (74-106) 99 MG/DL (74-106) Total Protein 7.0 GM/DL (6.4-8.2) 7.9 GM/DL (6.4-8.2) 6.5 GM/DL (6.4-8.2) Albumin 2.4 GM/DL (3.4-5.0) 2.7 GM/DL (3.4-5.0) 2.2 GM/DL (3.4-5.0) Calcium Level 7.7 MG/DL (8.5-10.1) 8.3 MG/DL (8.5-10.1) 8.2 MG/DL (8.5-10.1) Phosphorus Level 2.7 MG/DL (2.5-4.9) Magnesium Level 1.7 MG/DL (1.5-2.5) Alkaline Phosphatase 112 U/L (45-117) 130 U/L (45-117) 96 U/L (45-117) Aspartate Amino Transf (AST/SGOT) 68 U/L (15-37) 67 U/L (15-37) 53 U/L (15-37) Alanine Aminotransferase (ALT/SGPT) 33 U/L (12-78) 32 U/L (12-78) 26 U/L (12-78) Total Bilirubin 6.1 MG/DL (0.2-1.0) 4.4 MG/DL (0.2-1.0) 3.1 MG/DL (0.2-1.0) Sodium Level 140 MEQ/L (136-145) 137 MEQ/L (136-145) 139 MEQ/L (136-145) Potassium Level 3.5 MEQ/L (3.5-5.1) 3.7 MEQ/L (3.5-5.1) 4.3 MEQ/L (3.5-5.1) Chloride Level 106 MEQ/L (98-107) 103 MEQ/L (98-107) 105 MEQ/L (98-107) Carbon Dioxide Level 26.5 MEQ/L (21.0-32.0) 29.9 MEQ/L (21.0-32.0) 27.9 MEQ/L (21.0-32.0) Anion Gap 8 MEQ/L (5-15) 4 MEQ/L (5-15) 6 MEQ/L (5-15) Estimat Glomerular Filtration Rate 74 ML/MIN (>89) 65 ML/MIN (>89) 41 ML/MIN (>89) Lactic Acid Level 2.8 mmol/L (0.4-2.0) Total Creatine Kinase 65 U/L (39-308) Troponin I 0.87 NG/ML (0.02-0.05) Metamyelocytes 1 % (0-1) Basophilic Stippling MOD (NORMAL) . (Arabella Mclaughlin) Result Diagram: 04/28/1753104/28/1732 Microbiology Microbiology Date/Time Source Procedure Growth Status 04/25/17 23:00 Blood Peripheral Aerobic Blood Culture - Preliminary NO GROWTH IN 3 DAYS Resulted 04/25/17 23:00 Blood Peripheral Anaerobic Blood Culture - Preliminary NO GROWTH IN 3 DAYS Resulted 04/25/17 23:00 Blood Peripheral Aerobic Blood Culture - Preliminary Staph Sp Coagulase Negative Resulted 04/25/17 23:00 Blood Peripheral Anaerobic Blood Culture - Preliminary NO GROWTH IN 3 DAYS Resulted 04/25/17 20:45 Blood Peripheral Aerobic Blood Culture - Preliminary NO GROWTH IN 3 DAYS Resulted 04/25/17 20:45 Anaerobic Blood Culture - Final Viridans Streptococcus Grp Resulted 04/25/17 20:40 Blood Peripheral Aerobic Blood Culture - Final Viridans Streptococcus Grp Resulted 04/25/17 20:40 Blood Peripheral Anaerobic Blood Culture - Preliminary NO GROWTH IN 3 DAYS Resulted 04/25/17 20:45 Nasal Washing Influenza Types A,B Antigen (ANICETO) - Final NEGATIVE FOR FLU A AND B ANTIGEN.... Complete 04/25/17 22:45 Urine Random Urine Urine Culture - Final 50-100,000 CFU/ML MIXED ROBERT... Complete Imaging Last 72 hours Impressions Chest X-Ray 04/28/17599 Signed Impressions: Service Date/Time: April 04:11 - CONCLUSION: Slightly improved. Fortino Cruz MD Chest X-Ray 04/27/17599 Signed Impressions: Service Date/Time: Thursday, April 27, 2017 04:57 - CONCLUSION: Worsening bilateral airspace disease and right effusion. Fortino Cruz MD Chest X-Ray 04/25/172035 Signed Impressions: Service Date/Time: Tuesday, April 25, 2017 20:39 - CONCLUSION: Cardiomegaly. There is a possible mild right effusion. Fortino Woodson MD . (Arabella Mclaughlin) Assessment and Plan Disease Oriented Problem List: (1) Atrial fibrillation with RVR (2) Chronic diastolic congestive heart failure (3) S/P TAVR (transcatheter aortic valve replacement) (4) Alcoholic cirrhosis of liver with ascites (5) Hepatitis C (6) Varices, esophageal Comment: hx of (7) Fever (8) Chronic low back pain (9) Deafness (10) History of discitis (11) ETOH abuse Comment: hx of (12) Drug abuse Comment: hx of. (13) Pancytopenia Symptom Scale: (1) Pain 0-10 Scale: 0 (2) Dyspnea 0-10 Scale: 0 Pertinent Non-Medical Issues Psychosocial: Spiritual: Legal: Ethical issues impacting care: Important Contacts Tawny Gamez [phone] (daughter ). Nitish Ordoñez , (friend) Prognosis Hx of substance abuse, prothetic valve, hepatitic C, cirrohsis, gi bleed. currently in Afib. Given functional status, multiple hospitalizations, and multiple comorbidities, pt is appropriate for hospice if goals of care is consistent with comfort mesures only. Code Status: No Code Plan == NO CODE/DNR/DNI == Decision Maker: Healthcare surrogate designation form was completed on 2015 naming Anh Ordoñez as the healthcare surrogate decision maker, and the patient's stepdaughter (Tawny Gamez) as the alternate health care surrogate. However, I spoke with with Anh Ordoñez who stated she is no longer involved in the patient's life; she subsequently opted out of role of the healthcare surrogate decision maker. The patient's stepdaughter, Tawny, is the healthcare surrogate decision maker. == Patient's step-daughter reports her father has been declining. She states he spends most of he day in the recliner; he is needing more assistance with ADLs. She states when she arrives at his home to give him a bath he is often soaked in urine and covered in feces. She states the patient's missed his appointment at [facility] because he was hospitalized and and now needs to get another referral from his adult daycare coordinator. Unfortunately, patient has difficulty getting to his medical appointments locally. Tawny is not able to do this because she has 3 children and works 2 jobs. She states he has a history of medical non- compliance. == Cardiology states any further cardiac interventions would be difficult secondary to the patient's current thrombocytopenia. Recommendations were made for conservative, medical management at this time. == Palliative care spoke with patient's step-daughter (Tawny) yesterday on 2016. She is also the designated HCS. After discussing the patient current clinical decision and recent decline, she requested the patient's CODE STATUS be changed to NO CODE. She requested no escalation in the patient's care with no further invasive procedures. Hospice consulted yesterday. == Hospice consult pending == Discussed with bedside nurse (Chaim). == Symptoms: * Dyspnea: Patient decompensated with morning; oxygen saturation in the low 90s on 8 L via simple mask. CXR on admission showing cardiomegaly and possible mild right effusion; follow-up chest x-ray this morning showing improvement * Pain: Patient grimacing and moaning, loudly stating "My hip". Nurse, Chaim, was notified. PRN Morphine, Oxycodone and Edna are available but have not been utilized in the past 24 hours * Confusion: Likely multi-factorial, general decline, liver cirrhosis, hx of etoh abuse. == Palliative care will continue to follow patient throughout his hospitalization to establish trust, assist with symptom management and clarification of medical treatment goals. . (Arabella Mclaughlin) Attestation To help prompt me to consider important information that might be impacting today's encounter and assessment, information from prior notes written by myself or my colleagues may have been "brought forward" into today's note. My signature on this note, however, is an attestation that I personally performed the exam, history, and/or decision-making noted today, and, unless otherwise indicated, the interactions with patient, family, and staff as well as the review of records all occurred today. I also attest that the listed assessment and stated plan reflect my best clinical judgment today based on the combination of historical information, prior notes, and today's exam/ interactions. When time spent is documented, it refers only to time spent today by the signer, or if indicated, combined time spent today by collaborating physician/nurse practitioner. . (Arabella Mclaughlin) Collaborating MD Comments Chart reviewed. Case discussed with palliative care UX SPECIALIST. Above UX SPECIALIST note reviewed and I concur. . (Nitesh Velazquez MD) Arabella Mclaughlin Apr 28, 2017 14:01 Nitesh Velazquez MD May 01, 2017 18:27
--- NOTE | 2017-04-28 14:39 | HHI.CCPN ---
Subjective Remarks/Hospital Course 04/25: 66-year-old deaf gentleman presents after he had the onset of nausea and vomiting at about 2 PM. He had the onset of chest pain at about 3 PM. He reports 3 episodes of emesis. He also some shortness of breath and states that he feels hot. No diaphoresis. He was found to be in AF with RVR by EMS and was treated with Cardizem. He was also given aspirin and nitroglycerin per EMS. In the emergency department he was found to have a low-grade fever as well. 04/26: Patient received 4 L of IV fluids overnight for hypotension. Discussed with Dr. Tucker Hoffman from cardiology this morning. Patient was reportedly on hospice following a tablet done at [facility] and had refused follow-up with [facility] at that time. When I evaluated the patient he was resting in bed and did not appear to be in any acute distress on nasal cannula. He was on a Cardizem drip at 10 mg per hour with rate controlled A. fib. 04/27: Drowsy, arousable. Remains in A. fib RVR. Having difficulties with breathing. 04/28: Remains drowsy, encephalopathic. Blood cultures growing strep viridans. Family decided regarding no escalation of therapy and he is a DNR status. Objective Vital Signs Date Time Temp Pulse Resp B/P (MAP) Pulse Ox O2 Delivery O2 Flow Rate FiO2 04/28/17 14:00 83 04/28/17 12:00 98.4 27 106/65 (79) 92 04/28/17 08:02 Simple Mask 8.00 04/26/17 19:05 21 Intake and Output 04/28/17 04/28/17 04/29/17 08:00 16:00 00:00 Intake Total 150 ml Output Total 100 ml Balance 50 ml Result Diagram: 04/28/17 0532 04/28/17 0532 Other Results Microbiology Date/Time Source Procedure Growth Status 04/25/17 20:45 Nasal Washing Influenza Types A,B Antigen (ANICETO) - Final NEGATIVE FOR FLU A AND B ANTIGEN.... Complete 04/25/17 22:45 Urine Random Urine Urine Culture - Final 50-100,000 CFU/ML MIXED ROBERT... Complete Imaging Last Impressions Chest X-Ray 04/25/172035 Signed Impressions: Service Date/Time: Tuesday, April 25, 2017 20:39 - CONCLUSION: Cardiomegaly. There is a possible mild right effusion. Fortino Woodson MD Objective Remarks GENERAL: Well-nourished, well-developed patient. SKIN: Warm and dry. HEAD: Normocephalic. EYES: No scleral icterus. No injection or drainage. NECK: Supple, trachea midline. No JVD or lymphadenopathy. CARDIOVASCULAR: S1 and S2 irregularly irregular. RESPIRATORY: Breath sounds equal bilaterally. No accessory muscle use. No wheezing or crackles. Scattered rhonchi GASTROINTESTINAL: Abdomen soft, non-tender, nondistended. MUSCULOSKELETAL: No cyanosis. Bilateral pedal edema BACK: Nontender without obvious deformity. NEURO EXAM: Drowsy, arousable, confused and disoriented, has deafness(long-standing), moves all 4 extremities A/P Assessment and Plan A. fib with RVR - Cardizem drip as needed, by mouth Cardizem - Series of troponins - Series of EKGs - 2-D echo - Hold anticoagulation due to thrombocytopenia, 54 Elevated troponin - No ST changes on EKG - Cardiology consulted - 2-D echo - Aspirin - Atorvastatin - Hold anticoagulation due to severe thrombocytopenia - KVO IVF. Not responding with diuretics. -Patient has had a TAVR before per Dr. Tucker Hoffman Fever with tachycardia and bandemia - Broad-spectrum antibiotic -Blood cultures growing strep viridans. Discussed with Dr. Hoffman. Patient had a JUANITA recently with no evidence of vegetations. In either case he is not a candidate for a repeat JUANITA at this time due to poor respiratory status and the fact that family does not want any further escalation of therapy. Diabetes - Insulin sliding scale Thrombocytopenia - Underlying liver cirrhosis - Monitor trend transfuse for platelets less than 20 Liver cirrhosis - Supportive care DVT GI prophylaxis - Teds SCDs - Hold pharmacological DVT prophylaxis due to severe thrombocytopenia - Pepcid Patient being followed by palliative care team. They have discussed his condition with his daughter and she has elected to make him DNR status with no further invasive procedures. Considering hospice. DNR status currently. Prognosis appears poor. Discussed with Dr. Ronald Hoffman from cardiology. Rigo Stone MD Apr 28, 2017 14:39
[2017-04-28] MEDS ORDERED: PHARMACY ORDERED LAB ONE (17:45)
[2017-04-28] MEDS ORDERED: CEFEPIME INJ 2,000 MG in SODIUM CHLORIDE 0.9% INJ 100 ML IV SCH (20:00)
== END 2017-04-28 20:45 | disposition hospice, inpatient (51) | DRG 308 ==
LOC: NEPE 20:15 → NEDA 23:21 → HIMW 04-26 01:15
PROVIDERS: ADMIT Internal Medicine Critical Care Medicine; ATTEND Internal Medicine Critical Care Medicine
DX: I48.91 Unspecified atrial fibrillation (principal); G93.40 Encephalopathy, unspecified; D61.818 Other pancytopenia; J18.9 Pneumonia, unspecified organism; K92.0 Hematemesis; I11.0 Hypertensive heart disease with heart failure; I50.32 Chronic diastolic (congestive) heart failure; E87.2 Acidosis; I85.00 Esophageal varices without bleeding; F10.188 Alcohol abuse with other alcohol-induced disorder; T82.03XA Leakage of heart valve prosthesis, initial encounter; D73.5 Infarction of spleen; E11.9 Type 2 diabetes mellitus without complications; B19.20 Unspecified viral hepatitis C without hepatic coma; G89.29 Other chronic pain; M54.5 Low back pain; I25.10 Atherosclerotic heart disease of native coronary artery without angina pectoris; K70.31 Alcoholic cirrhosis of liver with ascites; J45.909 Unspecified asthma, uncomplicated; Y71.2 Prosthetic and other implants, materials and accessory cardiovascular devices associated with adverse incidents; H40.9 Unspecified glaucoma; H54.7 Unspecified visual loss; H91.90 Unspecified hearing loss, unspecified ear; Z51.5 Encounter for palliative care; Z66 Do not resuscitate; Z86.73 Personal history of transient ischemic attack (TIA), and cerebral infarction without residual deficits; Z91.19 Patient's noncompliance with other medical treatment and regimen; Z95.1 Presence of aortocoronary bypass graft; Z95.2 Presence of prosthetic heart valve; Z79.01 Long term (current) use of anticoagulants; M19.90 Unspecified osteoarthritis, unspecified site
CPT/HCPCS: 71010; 76937; 80053; 80307; 81001; 82550; 82948; 83605; 83735; 84100; 84484; 85007; 85025; 85027; 85610; 87040; 87086; 87186; 87205; 87641; 87804; 93005; 93306; 96361; 96365; 96375; J0692; J1120; J1580; J1644; J1940; J2270; J3370; J7030; J7040; J7050